=== PATIENT | female | born 1980 | race African-American/Black ===

== ENCOUNTER 2017-06-04 09:07 | Outpatient (RCR) | payer MEDICAID, SELFPAY ==
[2017-06-03 00:41] VITALS: BP 112/71; PULSE 98; RESP 20; TEMP 36.4; BMI 30.5
[2017-06-04 09:54] VITALS: BP 118/72; PULSE 89; RESP 16; TEMP 37.1; BMI 30.5
--- NOTE | 2017-06-04 23:24 | PCM.WC.PN ---
Type of Wound Date of Service: 06/04/17 Chief Complaint: Nonhealing hidradenitis ulcer right inguinal and perineal area. History of Wound: Surgery 03/22/17 - Surgical preparation right inguinal area and perineal area with excision recurrent hidradenitis (100 cm2). Wound care - Silver dressing changes. Operative culture - MRSE, and Anaerobic cocci. She has finished the Levaquin and Flagyl. Prealbumin from 03/23/17 was 22.3. She takes nutritional supplementation with protein to help the healing process. Today she denies fever. Her appetite is good. She has also noted a cystic lesion on the superior aspect right breast. Denies any trauma. Progress of Wound: Healed. - Physical Exam Vital Signs Temp Pulse Resp BP 98.7 F 89 16 118/72 06/04/17 09:54 06/04/17 09:54 06/04/17 09:54 06/04/17 09:54 General: Alert, Oriented x3 HEENT: PERRLA, EOMI Neck: Supple Lungs: Clear to auscultation Cardiovascular: Regular rate, Regular Rhythm Abdomen: Soft, Non-Distended Skin: Ulcer/ Wound - right inguinal and perineal hidradenitis ulcer has healed., - - There is a cystic mass superior aspect right breast. Clinically it is mobile. Doubt it is related to hidradenitis. No evidence of infection. No skin retraction. Cystic mass is nontender. Measures 1 cm. Wound Measurements and Assessment WC - Nurse 1 - General Ulcer Measurement Start: 06/04/17 09:54 Freq: Status: Active Protocol: Activity Type Activity Date Activity User E-Sign Co-Sign Detail Recorded Client Recorded Date Recorded By Document 06/04/17 09:54 [facility] [id number] 06/04/17 10:02 [facility] 06/04/17 09:54 Wound Center Nurse 1 [Ulcer Assessment Protocol: WC.WD.LOC] #2/2 Right Groin -Combined with other wound No -Current Size (cm) - Length 0.1 -Current Size (cm) - Width 0.1 -Current Size (cm) - Depth 0.1 -Total Square Cm 0.01 -Date of Last Picture (Recall this 06/04/17 field) -Photo Taken Yes -Exudate Amt None Present (0 %) -Temperature (Luisa-wound Skin No Abnormality Appearance) (Pt Warm) -Tenderness on Palpation (Luisa-wound Yes Skin Appearance) -Ulcer Cleansing Rinsed/ Irrigated with Saline -Foul Odor after Cleansing No -Anesthetic Used 4% Lidocaine Solution - Nurse 2 - General Ulcer CM Notes Start: 06/04/17 09:54 Freq: Status: Active Protocol: Activity Type Activity Date Activity User E-Sign Co-Sign Detail Recorded Client Recorded Date Recorded By Document 06/04/17 10:55 [id number] 06/04/17 10:57 06/04/17 10:55 Wound Center Nurse 2 [Procedure/Treatment] -Correct Patient No -Correct Side, Site, Position No -Correct Procedure No -Procedure Performed No -Post Debridement Size (cm) - Length 0 -Post Debridement Size (cm) - Width 0 -Post Debridement Size (cm) - Depth 0 -Total Square Cm 0 -Wound/Ulcer Outcome Healed- Epithelialized -Bioengineered Tissue No -Cetacaine Cheney No -Bleeding Controlled with NA [See Physician Procedure note for Specifics] Pain Scale: 0-10 Numeric [Pain] -Is Patient Pain Free? Yes Neurological: Cranial nerves II-XII grossly intact Psych/Mental Status: Normal Affect, Appropriate Debridement Note Post-Debridement Measurements/Treatment - Nurse 2 - General Ulcer CM Notes Start: 06/04/17 09:54 Freq: Status: Active Protocol: Activity Type Activity Date Activity User E-Sign Co-Sign Detail Recorded Client Recorded Date Recorded By Document 06/04/17 10:55 [id number] 06/04/17 10:57 06/04/17 10:55 Wound Center Nurse 2 #2/2 Right Groin -Correct Patient No -Correct Side, Site, Position No -Correct Procedure No -Procedure Performed No -Post Debridement Size (cm) - Length 0 -Post Debridement Size (cm) - Width 0 -Post Debridement Size (cm) - Depth 0 -Total Square Cm 0 -Wound/Ulcer Outcome Healed- Epithelialized -Bioengineered Tissue No -Cetacaine Cheney No -Bleeding Controlled with NA Pain Scale: 0-10 Numeric Is Patient Pain Free? Yes Wound debrided: #2 Right inguinal area extending to perineal area. Laterality: Right Wound Grade/Stage: 2. No debridement was completed today - The ulcer has healed. Assessment/Plan Assessment: 1. Hidradenitis ulcer right inguinal and perineal area, healed. 2. Diabetes mellitus. 3. Smoker. 4. History of MRSE and MRSA. 5. 1 cm cystic lesion superior aspect right breast. Plan: The hidradenitis ulcer has healed. Massage the scar with skin lotion daily to help soften up the scar. She has finished the Levaquin for MRSE and has finished the Flagyl for the anaerobes. Her Prealbumin from 03/23 was 22.3. Continue nutritional supplementation with protein to help the healing process. Reassured the patient that the cystic mass superior aspect right breast was not clinically consistent with hidradenitis. Clinically it appears benign. However it should be followed up just to make sure. She will need a mammogram and ultrasound to her right breast. Her PCP Dr. Bradshaw can set that up. Depending on what is found, a general surgery evaluation may be necessary for biopsy to evaluate for carcinoma. Followup on an as needed basis. Encouraged the patient to stop smoking as it may have deleterious effects on wound healing.
== END 2017-07-01 23:59 ==
LOC: WC 09:07
PROVIDERS: Family Provider Family Medicine; PCP Family Medicine; Visit Provider Surgery
DX: L73.2 Hidradenitis suppurativa (principal); N60.11 Diffuse cystic mastopathy of right breast; E11.9 Type 2 diabetes mellitus without complications; Z86.14 Personal history of Methicillin resistant Staphylococcus aureus infection; F17.200 Nicotine dependence, unspecified, uncomplicated
CPT/HCPCS: 99213; G0463

== ENCOUNTER 2017-12-22 15:25 | Emergency (ER) | payer MEDICAID, SELFPAY ==
[2017-12-22 15:26] VITALS: BP 138/93; PULSE 105; RESP 18; TEMP 36.1; O2SAT 99; BMI 31.1
[2017-12-22] MEDS: Ketorolac 30 MG/ML Syringe IM (15:57)
[2017-12-22] MEDS: Orphenadrine 60 MG/2 ML Ampul IM (15:57)
--- NOTE | 2017-12-22 16:09 | RAD_ITS ---
STUDY: X-RAY - LUMBAR SPINE REASON FOR EXAM: Female, 37 years old. Lower back pain. History of pilonidal cyst with surgical removal. TECHNIQUE: 3 view(s) of the lumbar spine were obtained. COMPARISON: None FINDINGS: Normal lumbar lordosis. There is no substantial scoliosis. There is a normal alignment of the vertebrae. Normal vertebral bodies and endplates. Normal disc space heights. There is no evidence of acute fracture or loss of vertebral axial height. The soft tissue structures are unremarkable. RAD/Lumbar Spine 2 or 3 Views IMPRESSION: Normal x-ray examination of the lumbar spine. Electronically Signed: Trev Quintero DO at 16:44 EDT Tel [phone], Service support ,
--- NOTE | 2017-12-22 17:16 | ED.VISSUMM ---
- ER Visit Summary Date of Service: 12/22/17 Chief Complaint: back pain History of Present Illness: The patient is a 37 F with back pain for about 4 days. The pain starts in her lower back and radiates to her tailbone. She said she never had this before. No injury or inciting event. Worse with movement. Denies any , GI symptoms. Denies any new numbness or weakness. Denies any recent illness. Denies fever. Denies history of back surgery. Denies any history of bone disease. No incontinence. Physical Examination: Vital signs unremarkable. Patient has diffuse lumbosacral tenderness to palpation. Overlying skin is normal. No warmth. No scars. Good range of motion, but she does have pain with movement. Neurovascular intact distally. Test Results: X-rays unremarkable. Emergency Department Course and Treatment: Patient treated with Toradol and Norflex while awaiting x-rays. She still had a great deal of pain but was able to move. Her exam is not consistent with , GI, [employer]GER, vascular, or infectious pathologies. This is likely myofascial pain. Her x-rays are negative. No other red flags. Patient was given an additional subcutaneous dose of morphine here. She will be discharged on anti-inflammatories and Flexeril. Follow-up with primary care. Return for any new or worsening issues. Treatment Plan: As above Disposition: Discharged Impression: 1. Lumbar back pain This note was generated with [employer] dictation software. It may contain incorrect words, spelling, and punctuation that were not noted in review of the chart prior to signing ED Disposition - Plan for ED Patient: Chief Complaint: Back Referrals: Joey Bradshaw MD [Primary Care Provider] -
--- NOTE | 2017-12-22 17:19 | ED.DCSUM_ITS ---
- ER Visit Summary Date of Service: 12/22/17 Chief Complaint: back pain History of Present Illness: The patient is a 37 F with back pain for about 4 days. The pain starts in her lower back and radiates to her tailbone. She said she never had this before. No injury or inciting event. Worse with movement. Denies any , GI symptoms. Denies any new numbness or weakness. Denies any recent illness. Denies fever. Denies history of back surgery. Denies any history of bone disease. No incontinence. Physical Examination: Vital signs unremarkable. Patient has diffuse lumbosacral tenderness to palpation. Overlying skin is normal. No warmth. No scars. Good range of motion, but she does have pain with movement. Neurovascular intact distally. Test Results: X-rays unremarkable. Emergency Department Course and Treatment: Patient treated with Toradol and Norflex while awaiting x-rays. She still had a great deal of pain but was able to move. Her exam is not consistent with , GI, VALANCE CUTTER, vascular, or infectious pathologies. This is likely myofascial pain. Her x-rays are negative. No other red flags. Patient was given an additional subcutaneous dose of morphine here. She will be discharged on anti-inflammatories and Flexeril. Follow-up with primary care. Return for any new or worsening issues. Treatment Plan: As above Disposition: Discharged Impression: 1. Lumbar back pain This note was generated with [employer] dictation software. It may contain incorrect words, spelling, and punctuation that were not noted in review of the chart prior to signing ED Disposition - Plan for ED Patient: Chief Complaint: Back Referrals: Joey Bradshaw MD [Primary Care Provider] -
--- NOTE | 2017-12-22 17:19 | ED.DEP ---
ED Disposition - Plan for ED Patient: Chief Complaint: Back Instructions: ED Spasm Back No Trauma Prescriptions: Cyclobenzaprine [Flexeril] 10 mg PO TID PRN PRN #10 tab PRN Reason: Spasms Naproxen [Naprosyn] 500 mg PO BID PRN PRN #20 tab PRN Reason: Pain Referrals: Joey Bradshaw MD [Primary Care Provider] -
[2017-12-22] MEDS: morphine 10 MG/ML Syringe 4 MG SC (17:30)
[2017-12-22 17:33] VITALS: BP 132/94; PULSE 77; RESP 16; O2SAT 100
== END 2017-12-22 17:35 | disposition home or self-care (01) ==
PROVIDERS: Emergency Provider Emergency Medicine; Family Provider Family Medicine; PCP Family Medicine
DX: M54.5 Low back pain (principal); E11.42 Type 2 diabetes mellitus with diabetic polyneuropathy; Z79.84 Long term (current) use of oral hypoglycemic drugs; Z79.899 Other long term (current) drug therapy; Z72.0 Tobacco use
CPT/HCPCS: 72100; 96372; 99282

== ENCOUNTER 2017-12-31 21:06 | Emergency (ER) | payer MEDICAID, SELFPAY ==
[2017-12-31 21:07] VITALS: BP 145/88; PULSE 111; RESP 16; TEMP 36.4; O2SAT 98; BMI 30.9
--- NOTE | 2017-12-31 21:20 | ED.DCSUM_ITS ---
- ER Visit Summary Date of Service: 12/31/17 Chief Complaint: Back pain History of Present Illness: The patient is a 37 F who continues to have back pain. She was seen here couple weeks ago and had negative x-rays. She was given naproxen and Flexeril. She stopped taking the naproxen at home because it did not work. She continues with pain. She has tried nothing else. She has no symptoms. Physical Examination: Vital signs reviewed. HEENT exam unremarkable. Heart is regular rate and rhythm without murmurs. Lungs are clear to auscultation. Abdomen is soft and nontender. Back is tender in the right lumbar paraspinal area extremities reveal no edema. Skin exam normal. Neurologic exam normal. Test Results: None indicated Emergency Department Course and Treatment: Patient will be treated with Norflex and Toradol here. She will go home with Dolobid. She will ice and do stretching activities will follow up with her PCP Treatment Plan: [] Disposition: Discharge Impression: Lumbar back pain This note was generated with [employer] dictation software. It may contain incorrect words, spelling, and punctuation that were not noted in review of the chart prior to signing ED Disposition - Plan for ED Patient: Chief Complaint: Back Referrals: Joey Bradshaw MD [Primary Care Provider] -
--- NOTE | 2017-12-31 21:20 | ED.DEP ---
ED Disposition - Plan for ED Patient: Disposition: Home or Assisted Living Chief Complaint: Back Instructions: ED Neck Back Pain General Prescriptions: Diflunisal [Dolobid] 500 mg PO TID #20 tab Referrals: Joey Bradshaw MD [Primary Care Provider] -
[2017-12-31] MEDS: Orphenadrine 60 MG/2 ML Ampul IM (21:27)
[2017-12-31] MEDS: Ketorolac 60 MG/2 ML Vial IM (21:27)
== END 2017-12-31 21:48 | disposition home or self-care (01) ==
PROVIDERS: Emergency Provider Emergency Medicine; Family Provider Family Medicine; PCP Family Medicine
DX: M54.5 Low back pain (principal); E11.40 Type 2 diabetes mellitus with diabetic neuropathy, unspecified; Z79.84 Long term (current) use of oral hypoglycemic drugs; Z79.4 Long term (current) use of insulin; Z72.0 Tobacco use
CPT/HCPCS: 96372; 99282

== ENCOUNTER 2018-01-07 03:34 | Emergency (ER) | payer MEDICAID, SELFPAY ==
[2018-01-07 03:35] VITALS: BP 155/97; PULSE 99; RESP 18; TEMP 36.7; O2SAT 100; BMI 30.9
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
--- NOTE | 2018-01-07 04:22 | ED.DCSUM_ITS ---
- ER Visit Summary Date of Service: 01/07/18 Chief Complaint: Back pain History of Present Illness: The patient is a 37 F presenting for back pain. She states this has been ongoing for the past 2 weeks. She denies any known injury. She states she has an appointment with her primary care physician tomorrow. She was previously taking naproxen and she ran out. She was given Flexeril which she states is not helping. She has a history of kidney stones and states this feels somewhat similar. She denies fever. Denies hematuria. Denies bowel or bladder incontinence. Denies other complaints. Physical Examination: Vitals are stable. Patient is afebrile. Alert no acute distress. HEENT exam is unremarkable. Neck is supple. Lungs are clear and equal bilaterally. Heart is regular rate and rhythm. Abdomen is soft nontender nondistended. Back: Right CVA tenderness, right paraspinal muscle tenderness, no midline tenderness Extremities are unremarkable. Skin is warm and dry. No focal neurologic deficit. Remainder of exam is unremarkable. Emergency Department Course and Treatment: Patient is given morphine, Zofran IV. CT abdomen pelvis shows no acute process. Urinalysis shows glucose. BGT was checked and is 263. She states that her blood sugar typically runs high and that is not higher than usual. She is advised to take her morning medications. Advised to follow-up with her primary care physician today. Advised return to ED if worsening complaints. Disposition: Discharge home Impression: Back pain This note was generated with [employer] dictation software. It may contain incorrect words, spelling, and punctuation that were not noted in review of the chart prior to signing ED Disposition - Plan for ED Patient: Chief Complaint: Back Instructions: ED Neck Back Pain General Referrals: Joey Bradshaw MD [Primary Care Provider] -
[2018-01-07] MEDS: Morphine 4 MG/ML Syringe IV (04:42)
[2018-01-07] MEDS: Ondansetron 4 MG/2 ML Vial IV (04:43)
[2018-01-07 05:11] LABS: Bacteria 0 SEEN /hpf (None Seen); Mucous, Urine 0 SEEN /hpf (<or=2+); Red Blood Cells-Urine 0 SEEN /hpf (0-5)
[2018-01-07 05:27] LABS: Color, Urine Yellow (Yellow); Glucose, Dipstick 1000 mg/dl (Normal); Ketone-Dipstick Negative (Negative); Leukocyte Esterase-Dipstick Negative /ul (Negative); Nitrite-Dipstick Negative (Negative); Occult Blood-Urine Negative /ul (Negative); Protein-Dipstick Negative (Negative); Specific Gravity, Urine 1.015 (1.002-1.030); Urine Bilirubin Dipstick Negative (Negative); Urine Clarity Clear (Clear); Urine Urobilinogen Normal (Normal); Urine pH 6.5 (5.0 - 8.0)
[2018-01-07 05:52] LABS: Squamous Epithelial Cells - UA 10-25 SEEN /hpf (5-10); White Blood Cells 0-5 SEEN /hpf (0-5)
[2018-01-07 06:18] VITALS: BP 133/84; PULSE 78; RESP 18; TEMP 36.7; O2SAT 99
--- NOTE | 2018-01-07 07:07 | ED.DEP ---
ED Disposition - Plan for ED Patient: Chief Complaint: Back Instructions: ED Neck Back Pain General Referrals: Joey Bradshaw MD [Primary Care Provider] -
[2018-01-07 07:10] LABS: Bedside Glucose 263 mg/dL (70-110)
[2018-01-07 07:20] VITALS: BP 133/104; PULSE 88; RESP 18
== END 2018-01-07 07:25 | disposition home or self-care (01) ==
LOC: ED 04:23
PROVIDERS: Emergency Provider Emergency Medicine; Family Provider Family Medicine; PCP Family Medicine
DX: M54.9 Dorsalgia, unspecified (principal); E11.9 Type 2 diabetes mellitus without complications; Z79.4 Long term (current) use of insulin; Z79.84 Long term (current) use of oral hypoglycemic drugs; Z87.442 Personal history of urinary calculi; Z72.0 Tobacco use
CPT/HCPCS: 74176; 81001; 82962; 96374; 96375; 99285; J7030; A4216; J2405

== ENCOUNTER 2018-01-10 11:40 | Emergency (ER) | payer MEDICAID, SELFPAY ==
[2018-01-10 11:41] VITALS: BP 125/86; PULSE 93; RESP 16; TEMP 37.1; O2SAT 99; BMI 30.2
--- NOTE | 2018-01-10 12:07 | RAD_ITS ---
STUDY: X-RAY - LUMBAR SPINE REASON FOR EXAM: Female, 37 years old. Low back pain. No known injury. TECHNIQUE: 3 view(s) of the lumbar spine were obtained. COMPARISON: None FINDINGS: There is straightening of the normal lumbar lordosis. There is no substantial scoliosis. There is a normal alignment of the vertebrae. Normal vertebral bodies and endplates. Normal disc space heights. Calcified phleboliths are seen in the pelvis. RAD/Lumbar Spine 2 or 3 Views IMPRESSION: There is straightening of the normal lumbar lordosis. Electronically Signed: Khanh Villar MD at 12:40 EDT Tel [phone], Service support ,
--- NOTE | 2018-01-10 12:07 | ED.VISSUMM ---
- ER Visit Summary Date of Service: 01/10/18 Chief Complaint: Back pain History of Present Illness: The patient is a 37 F presents with 2-3 weeks of back pain. This is nontraumatic. No fever or chills. No urinary symptoms no bowel or bladder incontinence or retention. No radiation to her legs. Physical Examination: Not appear in acute distress. Moist mucous membranes, no obvious facial deformity No C-spine tenderness supple neck. Regular rate and rhythm without any obvious murmurs Clear lungs bilaterally speaking in full sentences without any obvious respiratory distress Abdomen soft and nontender no guarding or rebound Moves all extremities without any difficulty or pain. Skin does not show any obvious rashes or lesions, no trauma. Alert oriented ?3 with no gross focal deficit Emergency Department Course and Treatment: X-ray LS spine is unremarkable. Patient seemed improved. She made an apartment with Dr. Decker while in the emergency department and will follow up with him. At this time she is neurologically intact. Disposition: Discharge stable condition Impression: Lumbar back pain This note was generated with [employer] dictation software. It may contain incorrect words, spelling, and punctuation that were not noted in review of the chart prior to signing ED Disposition - Plan for ED Patient: Disposition: Home or Assisted Living Chief Complaint: Back Instructions: ED Low Back Pain Injury Prescriptions: Oxycodone HCl/Acetaminophen [Percocet 5/325] 1 tab PO Q6H PRN PRN 5 Days #5 tab PRN Reason: Pain Cyclobenzaprine [Flexeril] 10 mg PO TID PRN #20 tab PRN Reason: Muscle Spasm Referrals: Joey Bradshaw MD [Primary Care Provider] - 2 Days
[2018-01-10 12:09] VITALS: PULSE 87; RESP 18; O2SAT 100
[2018-01-10] MEDS: oxyCODONE 5 MG Tablet PO (12:13)
[2018-01-10 13:18] VITALS: BP 111/75; PULSE 89; RESP 16; O2SAT 99
--- NOTE | 2018-01-10 13:19 | ED.RN ---
REVIEWED D/C INSTRUCTIONS, FOLLOW UP CARE, PRESCRIPTIONS, AND S/S THAT WOULD WARRANT A RETURN TO THE ED WITH PT. PT VERBALIZED AN UNDERSTANDING AND DENIES FURTHER QUESTIONS FOR THIS RN. PT SKIN WARM/DRY, RESP EVEN AND UNLABORED, PT A&O X 3, NO DISTRESS NOTED. PT AMBULATED OUT OF ED, GAIT STEADY.
== END 2018-01-10 13:20 | disposition home or self-care (01) ==
LOC: ED 13:15
PROVIDERS: Emergency Provider Emergency Medicine; Family Provider Family Medicine; PCP Family Medicine
DX: M54.5 Low back pain (principal); E11.40 Type 2 diabetes mellitus with diabetic neuropathy, unspecified; Z79.4 Long term (current) use of insulin; Z79.84 Long term (current) use of oral hypoglycemic drugs; Z72.0 Tobacco use
CPT/HCPCS: 72100; 99284

== ENCOUNTER 2018-01-22 18:22 | Emergency (ER) | payer MEDICAID, SELFPAY ==
[2018-01-22 18:23] VITALS: BP 136/76; PULSE 145; RESP 18; TEMP 36.3; O2SAT 99
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
[2018-01-22] MEDS: Ondansetron ODT 4 MG Tablet PO (19:09)
[2018-01-22] MEDS: oxyCODONE 5 MG Tablet 10 MG PO (19:09)
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
[2018-01-22 21:20] VITALS: BP 115/77; PULSE 115; RESP 18; O2SAT 98
--- NOTE | 2018-01-22 21:21 | ED.RN ---
PT GIVEN WRITTEN AND VERBAL DISCHARGE INSTRUCTIONS AND HOME GOING PRESCRIPTIONS. PT VERBALIZES UNDERSTANDING AND DENIES ANY FURTHER QUESTIONS. PT EDUCATED ON IMPORTANCE OF SAFETY. PT REFUSES INFORMATION FOR 180, REPORTS THAT SHE HAS ALREADY ERIC GIVEN INFORMATION ABOUT IT. PT EDUCATED NOT TO DRIVE. FOR 4-6 HOURS. AMBULATES OUT OF DEPT. WITH FRIEND.
== END 2018-01-22 21:24 | disposition home or self-care (01) ==
PROVIDERS: Emergency Provider Emergency Medicine; Family Provider Family Medicine; PCP Family Medicine
DX: R51 Headache (principal); R11.0 Nausea; M54.2 Cervicalgia; Y04.8XXA Assault by other bodily force, initial encounter; Y93.9 Activity, unspecified; Y92.9 Unspecified place or not applicable; M54.9 Dorsalgia, unspecified; G89.29 Other chronic pain; E11.9 Type 2 diabetes mellitus without complications; Z86.79 Personal history of other diseases of the circulatory system; Z79.4 Long term (current) use of insulin; Z79.84 Long term (current) use of oral hypoglycemic drugs; Z72.0 Tobacco use
CPT/HCPCS: 70450; 72125; 74176; 99283

== ENCOUNTER 2018-03-25 16:25 | Emergency (ER) | payer MEDICAID, SELFPAY ==
[2018-03-25] VITALS (7 sets, daily range): BP systolic 112–132; BP diastolic 81–97; PULSE 84–114; RESP 14–20; TEMP 36.8; O2SAT 98–100; BMI 30.1
--- NOTE | 2018-03-25 16:44 | ED.DCSUM_ITS ---
- ER Visit Summary Date of Service: 03/25/18 Chief Complaint: Right groin abscess History of Present Illness: The patient is a 37 F history of insulin-dependent diabetes, lower extremity neuropathies and recurrent abscesses. Patient had surgery done by Dr. Pemberton in the past to both groin region secondary to abscesses. States right proximal thigh and groin area she is for the last 5 days. No drainage. No fever. Also states her blood sugar has been elevated. Physical Examination: Vital signs are stable and afebrile. H EENT exam unremarkable. Patient is in no distress. Moist mucous membranes. Neck nontender. Lungs clear to auscultation bilaterally. Heart regular rhythm no murmur. Abdomen soft nontender. Normal bowel sounds. No peritoneal signs. Moving all 4 extremities. Neurovascularly intact. The patient's proximal right upper thigh medially just lateral to her right groin crease there is a quarter size abscess that is fluctuant. There is no cellulitis. There is no active drainage. Neurologically he is awake alert with no focal motor deficits. Test Results: BGT shows Emergency Department Course and Treatment: Per patient request she will be given a limited amount of propofol for conscious sedation. The abscess of the locally anesthetized with lidocaine. And I will make a 1 inch incision to drain the abscess. Small amount of pus and blood. Broke up loculations and probed. Placed about 3 inches of half-inch gauze. Patient tolerated procedure well. She was consciously sedated with a total of 70 mg of IV propofol. Her vital signs and pulse ox remained stable the entire time. Treatment Plan: Keflex and Bactrim for 10 days. Warm soaks. Tylenol and Motrin for pain. Disposition: Discharge Impression: Acute proximal right thigh abscess Incision and drainage by ER Conscious sedation by ER using propofol for about 10 minutes. History of insulin-dependent diabetes with hyperglycemia This note was generated with [employer] dictation software. It may contain incorrect words, spelling, and punctuation that were not noted in review of the chart prior to signing ED Disposition - Plan for ED Patient: Chief Complaint: Abscess Referrals: Joey Bradshaw MD [Primary Care Provider] -
[2018-03-25 17:00] LABS: Bedside Glucose 346 mg/dL (70-110)
[2018-03-25] MEDS: Propofol 200 MG/20 ML Vial 40 MG IV BOLUS (18:18)
--- NOTE | 2018-03-25 18:21 | ED.DEP ---
ED Disposition - Plan for ED Patient: Disposition: Home or Assisted Living Chief Complaint: Abscess Instructions: ED Abscess IandD Prescriptions: Cephalexin [Keflex] 500 mg PO Q6 #40 cap Smz/Tmp Ds [Bactrim Ds] 1 tab PO BID #20 tab Referrals: Joey Bradshaw MD [Primary Care Provider] - 5-7 Days Additional Instructions: Warm compresses and/or soaks to the area. Tylenol and/or Motrin for pain. Watch her blood sugars closely. Keflex 1 pill 4 times a day till gone. Bactrim 1 pill twice a day till gone. Follow-up your primary care physician to ensure this is improving or return to ER if doing worse.
[2018-03-25] MEDS: oxyCODONE 5 MG Tablet 10 MG PO (18:38)
== END 2018-03-25 18:45 | disposition home or self-care (01) ==
PROVIDERS: Emergency Provider Emergency Medicine; Family Provider Family Medicine; PCP Family Medicine
DX: L02.214 Cutaneous abscess of groin (principal); E11.65 Type 2 diabetes mellitus with hyperglycemia; E11.40 Type 2 diabetes mellitus with diabetic neuropathy, unspecified; Z79.4 Long term (current) use of insulin; Z79.84 Long term (current) use of oral hypoglycemic drugs; Z72.0 Tobacco use
CPT/HCPCS: 10060; 82962; 96374; 99285; J7050; A4216

== ENCOUNTER 2018-06-30 14:28 | Emergency (ER) | payer MEDICAID, SELFPAY ==
[2018-06-30 14:28] VITALS: BP 119/80; PULSE 96; RESP 14; TEMP 36.8; O2SAT 97; BMI 30.1
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
[2018-06-30] MEDS: oxyCODONE 5 MG Tablet PO (16:37)
== END 2018-06-30 16:47 | disposition home or self-care (01) ==
LOC: ED 16:26
PROVIDERS: Emergency Provider Emergency Medicine; Family Provider Family Medicine; PCP Family Medicine
DX: S20.219A Contusion of unspecified front wall of thorax, initial encounter (principal); S39.012A Strain of muscle, fascia and tendon of lower back, initial encounter; M54.2 Cervicalgia; V43.62XA Car passenger injured in collision with other type car in traffic accident, initial encounter; Y93.9 Activity, unspecified; Y92.9 Unspecified place or not applicable; G89.29 Other chronic pain; E11.9 Type 2 diabetes mellitus without complications; Z79.84 Long term (current) use of oral hypoglycemic drugs; Z79.4 Long term (current) use of insulin
CPT/HCPCS: 71046; 72100; 99283

== ENCOUNTER 2018-07-15 13:10 | Emergency (ER) | payer MEDICAID, SELFPAY ==
[2018-07-15 13:11] VITALS: BP 133/96; PULSE 86; RESP 14; TEMP 36.2; O2SAT 99; BMI 28.7
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
[2018-07-15] MEDS: Ibuprofen 600 MG Tablet PO (13:39)
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
[2018-07-15 15:02] VITALS: BP 123/91; PULSE 89; RESP 16; O2SAT 100
== END 2018-07-15 15:02 | disposition home or self-care (01) ==
PROVIDERS: Emergency Provider Emergency Medicine; Family Provider Family Medicine; PCP Family Medicine
DX: M79.602 Pain in left arm (principal); M79.632 Pain in left forearm; M25.552 Pain in left hip; M25.562 Pain in left knee; M25.512 Pain in left shoulder; R07.9 Chest pain, unspecified; R20.0 Anesthesia of skin; V89.2XXA Person injured in unspecified motor-vehicle accident, traffic, initial encounter; Y93.9 Activity, unspecified; Y92.9 Unspecified place or not applicable; E11.40 Type 2 diabetes mellitus with diabetic neuropathy, unspecified; L73.2 Hidradenitis suppurativa; Z87.442 Personal history of urinary calculi; Z79.4 Long term (current) use of insulin; Z79.84 Long term (current) use of oral hypoglycemic drugs; F17.210 Nicotine dependence, cigarettes, uncomplicated
CPT/HCPCS: 73000; 73060; 73090; 99283

== ENCOUNTER → 2018-07-23 14:37 | Outpatient (CLI) | payer MEDICAID, SELFPAY ==
[2018-07-15 13:11] VITALS: BMI 28.7
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
--- OUTSIDE RECORDS SUMMARY | 2018-09-24 20:43 | XMS RPT_ITS ---
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 12/27/2021 HPV EVERY 5 YEARS due on 12/27/2021 Data reviewed [facility] ER report, UA, X-ray lumbar, CT abdomen reviewed. ASSESSMENT/PLAN: 1. Acute right-sided low back pain with bilateral sciatica - ICD9: 724.2, 724.3, ICD10: M54.42, M54.41 Sciatica - Ice for localized tenderness - Medrol dose pack - Muscle relaxant- see orders - PT consult - Follow up in PRN or sooner if symptoms persist or worsen - TIZANIDINE 4 MG TABLET - CONSULT TO PHYSICAL THERAPY - METHYLPREDNISOLONE 4 MG TABLETS IN A DOSE PACK: cautioned on increasing her blood glucose levels. - Advised to limit sitting, standing for prolonged time periods, avoid heavy lifting. Go to PHYSICAL THERAPY, follow up in open access with pcp team to determine effectiveness. Lee Santiago APRN.CNP CNOV Observed: 01/15/2018 Status: COMPLETED Source: [place] 12:20 PM [facility] REPOSITORY Office Visit (FAMPWS) MINDY FAULKNER ([id number]) 1980 F Date Time Provider Department 01/15/18 12:20 PM LEE SANTIAGO (LEONEL) [facility] During your visit today, we recorded the following information about you: Pulse Respiration Blood pressure Weight 88/minute 20/minute 124/86 81.2 kg Lee Santiago APRN.CNP 01/15/2018 12:42 PM Signed Chief Complaint Patient presents with: ER F/U: bilateral leg pain and back denies lifting HPI Mindy Faulkner is a 37 year old female who presents here today for Above Complaints.. Patient presents to the office for ER follow up for multiple visits: HOSPITAL/ER FOLLOW UP: Reason for visit: Back pain Which facility: [facility] ER Date of visit: 12/31, 01/07, 01/10/2018 Diagnosis: Lumbar back pain Testing done: X-ray lumbar (unremarkable), CT abdomen (unremarkable, ruling out renal calculi). Treatment given: Patient was given naproxen, flexeril, and percocet Current symptoms: Patient states that she initially was walking up a hill, felt a sudden cramp in anterior of her abdomen, also lower back. States that she felt like a menstrual cramp. Went to [facility], had a normal evaluation. At this time, laying on the floor improves her pain. Has difficulty with standing up with stiffness. Sitting makes her pain increase. At her last ER visit, she states that she had no radiation of pain to her legs. Now she is stating she is having bilateral leg pain. Complaints of sudden stabbing pain in her lower lumbar, right greater than left. Right buttock pain, left sided pain. No nausea. No abdominal pain. No episodes of groin numbness, loss of function of bowel or bladder control. Gait is stiff. Has not been icing. Has not been to PHYSICAL THERAPY. Requesting MRI. Past medical history, appointments, medications, allergies reviewed. Previous Medical History PAST MEDICAL HISTORY Diagnosis Date - Cellulitis and abscess of upper arm and forearm RIGHT AXILLA - Diabetes mellitus (HCC) Type 2 - Heroin use 2016 admitted for overdose x 2 - Neuropathy (HCC) - Pilonidal abscess Previous Surgical History PAST SURGICAL HISTORY Procedure Laterality Date - DRAINAGE OF PILONIDAL CYST 03/10/10 In ER - FRAGMENTING/KIDNEY STONE Lithotripsy - I AND D ABSCESS, SINGLE 05/13/08 RIGHT AXILLA - PAST SURGICAL HISTORY OF removal boils - PAST SURGICAL HISTORY OF Removed part of inner thigh Family History FAMILY HISTORY Problem Relation Age of Onset - Diabetes Mother - Diabetes Maternal Grandmother - Diabetes Paternal Grandmother Patient Allergies ALLERGIES Allergen Reactions - Dilaudid [Hydromorp* Mental Status Change - Tramadol Other: See Comments Heart racing - Vicodin [Hydrocodon* GI Upset Current Medications Current Outpatient Prescriptions on File Prior to Visit: insulin glargine (LANTUS SOLOSTAR, BASAGLAR) 100 unit/mL (3 mL) inpn Inject 10 Units subcutaneously one time only for 1 dose. Lancets lancets Test blood sugar(s) 4 times daily. Dx: Type 2 DM - Uncontrolled E11.65 Insulin: Yes blood sugar diagnostic (BLOOD GLUCOSE TEST) test strip Test blood sugar(s) 2 times daily. Dx: 250.00 DM2. Insulin: Yes metFORMIN (GLUCOPHAGE) 1,000 mg tablet Take 1 tablet by mouth twice daily with meals. meloxicam (MOBIC) 15 mg tablet Take 1 tablet by mouth once daily. With food. amitriptyline (ELAVIL) 25 mg tablet Take 1 tablet by mouth daily at bedtime. Blood-Glucose Meter (FREESTYLE LITE METER) monitoring kit Freestyle LITE Meter Kit - Dx: Type 2 DM - Controlled E11.9 blood sugar diagnostic (FREESTYLE LITE STRIPS) test strip Test blood sugar(s) 4 times daily. Dx: Type 2 DM - Controlled E11.9 Insulin: Yes lancets (FREESTYLE LANCETS) 28 gauge misc Test blood sugar(s) 4 times daily. Dx: Type 2 DM - Controlled E11.9 Insulin: Yes blood sugar diagnostic (BLOOD GLUCOSE TEST) test strip Test blood sugar(s) 4 times daily. Dx: Type 2 DM - Uncontrolled E11.65 Insulin: Yes No current facility-administered medications on file prior to visit. Social History Social History Marital status: Single Spouse name: Years of education: Number of children: 0 Occupational History Occupation Employer Comment Unemployed Social History Main Topics Smoking status: Current Every Day Smoker Packs/day: 0.25 Years: 5.00 Types: Cigarettes Smokeless tobacco: Never Used Comment: 1-2 cigarettes per day Alcohol use: No Drug use: No Sexual activity: Not Currently REVIEW OF SYSTEMS: as above ? Reviewed relevant PMHx, PSHx, Social Hx, current medications and allergies. EXAM: BP 124/86 Pulse 88 Resp 20 Wt 81.2 kg (179 lb) LMP 12/28/2017 (Exact Date) BMI 30.73 kg/m? General Appearance: Well appearing, alert, well-hydrated, well nourished. Appears uncomfortable. Lungs: Lungs clear to auscultation. No wheezing, rhonchi, rales. Heart: RRR without murmur, gallop, or rubs. No ectopy. Musculoskeletal: Moderate right paraspinal tenderness. No vertebral tenderness. Patient declined further evaluation on exam table due to pain. Neuro: Sensation of the bilateral lower extremities are intact to light touch. Health Maintenance List DTAP,TDAP,TD(1 - Tdap) due on 12/15/2010 DIABETIC FOOT EXAM due on 12/14/2017 ONE PNEUMOVAX PRIOR TO AGE 65 due on 07/02/2043 HBA1C due on 01/24/2018 DIABETES MED ADHERENCE due on 01/30/2018 INFLUENZA(1) due on 03/02/2018 DILATED RETINAL EXAM due on 04/10/2018 URINE ALBUMIN:CREATININE RATIO due on 10/25/2018 LDL CHOLESTEROL due on 10/25/2018 ANNUAL PCP TEAM CHRONIC DISEASE VISIT due on 10/25/2018 PAP EVERY 5 YEARS due on 12/27/2021 HPV EVERY 5 YEARS due on 12/27/2021 Data reviewed [facility] ER report, UA, X-ray lumbar, CT abdomen reviewed. ASSESSMENT/PLAN: 1. Acute right-sided low back pain with bilateral sciatica - ICD9: 724.2, 724.3, ICD10: M54.42, M54.41 Sciatica - Ice for localized tenderness - Medrol dose pack - Muscle relaxant- see orders - PT consult - Follow up in PRN or sooner if symptoms persist or worsen - TIZANIDINE 4 MG TABLET - CONSULT TO PHYSICAL THERAPY - METHYLPREDNISOLONE 4 MG TABLETS IN A DOSE PACK: cautioned on increasing her blood glucose levels. - Advised to limit sitting, standing for prolonged time periods, avoid heavy lifting. Go to PHYSICAL THERAPY, follow up in open access with pcp team to determine effectiveness. ANGIE Anton APRN.CNP 01/15/2018 12:35 PM Signed Please start Prednisone taper as prescribed. Use with food. It will cause your blood glucose to go up. Use Zanaflex as needed, caution with sedation. I would advise use of ice to your lower area. Go to PHYSICAL THERAPY. Follow up with Dr. Bradshaw or Wojciech in open access if not improving. Lee Santiago APRN.CNP Referring Provider: SELF [200] Allergies As of Date: 01/15/2018 Noted Allergy Reaction DILAUDID (HYDROMORPHONE (BULK)) 07/16/2012 1 - Mental Status Change TRAMADOL 07/23/2015 14 - Other: See Comments Comments: Heart racing VICODIN (HYDROCODONE-ACETAMINOPHE*07/16/2012 8 - GI Upset Date Reviewed: 01/15/2018 Reviewed by: Lee (Leonel) Matt - Fully Assessed Reason for Visit: ER F/U [41] Cmt: bilateral leg pain and back denies lifting Primary Visit Diagnosis:Acute right-sided low back pain with bilateral sciatica [M54.42, M54.41] Order(s):tiZANidine (ZANAFLEX) 4 mg tabletTake 1 tablet by mouth every 8 hours as needed (muscle spasms).Disp: 30 tabletRfl: 1 CONSULT TO PHYSICAL THERAPY [9032] Order #: [id number]: 1 methylPREDNISolone (MEDROL, CARMEN,) 4 mg Dose-PackFollow dosing instructions, take with food.Disp: 1 PackageRfl: 0 Prescriptions as of 01/15/2018 Sig: OXYCODONE-ACETAMINOPHEN 5 MG-* Take 1 tablet by mouth every * TIZANIDINE 4 MG TABLET Take 1 tablet by mouth every * METHYLPREDNISOLONE 4 MG TABLE* Follow dosing instructions, t* INSULIN GLARGINE (U-100) 100 * Inject 10 Units subcutaneousl* LANCETS Test blood sugar(s) 4 times d* BLOOD SUGAR DIAGNOSTIC STRIPS Test blood sugar(s) 2 times d* METFORMIN 1,000 MG TABLET Take 1 tablet by mouth twice * MELOXICAM 15 MG TABLET Take 1 tablet by mouth once d* AMITRIPTYLINE 25 MG TABLET Take 1 tablet by mouth daily * BLOOD-GLUCOSE METER KIT Freestyle LITE Meter Kit - Dx* BLOOD SUGAR DIAGNOSTIC STRIPS Test blood sugar(s) 4 times d* LANCETS 28 GAUGE Test blood sugar(s) 4 times d* BLOOD SUGAR DIAGNOSTIC STRIPS Test blood sugar(s) 4 times d* Problem List As Of Date 01/15/2018 Noted Resolved Pilonidal Cyst with Abscess [L05.01] INVALID FOR* NO SHOW [742020] INVALID FOR*07/06/2014 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 Use with food. It will cause your blood glucose to go up. Use Zanaflex as needed, caution with sedation. I would advise use of ice to your lower area. Go to PHYSICAL THERAPY. Follow up with Dr. Bradshaw or Wojciech in open access if not improving. Lee Santiago APRN.CAPACITY ANALYST Prescriptions ordered this encounter Disp Refills Start End TIZANIDINE 4 MG TABLET 30 t* 1 01/15/2018 Route: ORAL Sig: Take 1 tablet by mouth every 8 hours as needed (muscle spasms). METHYLPREDNISOLONE 4 MG TABLETS IN A* 1 Pa* 0 01/15/2018 01/21/2018 Sig: Follow dosing instructions, take with food. Medications Discontinued During This Encounter cyclobenzaprine (FLEXERIL) 10 mg tab* 0 01/10/2018 01/15/2018 Class: Historical Med Route: ORAL Sig: Take 10 mg by mouth three times daily as needed. Disc: Reason for discontinue is not on file. Disposition: Return if symptoms worsen or fail to improve. Follow-up and Disposition History Recorded Encounter Status:Closed by LEE SANTIAGO CNP on 01/15/18 EMERGENCY DEPARTMENT Observed: 01/10/2018 Status: F Source: [place] SUMMARY 4:06 PM [facility] Medical Records Department [address] [place] [address] Emergency Department Summary 01/10/18 1207 MR#: [id number] Acct: [id number] Name: MINDY FAULKNER Rep #: [id number] : 1980 37 From: Garrison Cali MD PCP: Joey Bradshaw MD Status: DEP ER - ER Visit Summary Date of Service: 01/10/18 Chief Complaint: Back pain History of Present Illness: The patient is a 37 F presents with 2-3 weeks of back pain. This is nontraumatic. No fever or chills. No urinary symptoms no bowel or bladder incontinence or retention. No radiation to her legs. Physical Examination: Not appear in acute distress. Moist mucous membranes, no obvious facial deformity No C-spine tenderness supple neck. Regular rate and rhythm without any obvious murmurs Clear lungs bilaterally speaking in full sentences without any obvious respiratory distress Abdomen soft and nontender no guarding or rebound Moves all extremities without any difficulty or pain. Skin does not show any obvious rashes or lesions, no trauma. Alert oriented 3 with no gross focal deficit Emergency Department Course and Treatment: X-ray LS spine is unremarkable. Patient seemed improved. She made an apartment with Dr. Decker while in the emergency department and will follow up with him. At this time she is neurologically intact. Disposition: Discharge stable condition Impression: Lumbar back pain This note was generated with Next 2 Greatness dictation software. It may contain incorrect words, spelling, and punctuation that were not noted in review of the chart prior to signing ED Disposition - Plan for ED Patient: Disposition: Home or Assisted Living Chief Complaint: Back Instructions: ED Low Back Pain Injury Prescriptions: Oxycodone HCl/Acetaminophen [Percocet 5/325] 1 tab PO Q6H PRN PRN 5 Days #5 tab PRN Reason: Pain Cyclobenzaprine [Flexeril] 10 mg PO TID PRN #20 tab PRN Reason: Muscle Spasm Referrals: Joey Bradshaw MD [Primary Care Provider] - 2 Days What to do if you have Problems For any increased pain, shortness of breath, bleeding, nausea or vomiting, chest pain, or any unexpected problems, contact your Primary Care Provider. Call [facility] ([phone]) or report to the closest Emergency Room. Call 911 if necessary. 01/10/18 1606 <Electronically signed by Garrison aCli MD> Date Garrison Cali MD Cosigner Signature (If Indicated): Date CC: Joey Bradshaw MD LUMBAR SPINE 2 OR 3 Observed: 01/10/2018 Status: F Source: [place] VIEWS 12:07 PM [facility] Imaging Services [address] [place] [id number] Lumbar Spine 2 or 3 Views MR#: [id number] Acct: [id number] Name: MINDY FAULKNER Chiquita Rep #: [id number] : 1980 F 37 From: Khanh Villar MD PCP: Joey Bradshaw MD Status: PRE ER Study: Lumbar Spine 2 or 3 Views Date of Exam: 01/10/18 Exam# [id number] Ordering Dr: Garrison Cali MD STUDY: X-RAY - LUMBAR SPINE REASON FOR EXAM: Female, 37 years old. Low back pain. No known injury. TECHNIQUE: 3 view(s) of the lumbar spine were obtained. COMPARISON: None FINDINGS: There is straightening of the normal lumbar lordosis. There is no substantial scoliosis. There is a normal alignment of the vertebrae. Normal vertebral bodies and endplates. Normal disc space heights. Calcified phleboliths are seen in the pelvis. RAD/Lumbar Spine 2 or 3 Views IMPRESSION: There is straightening of the normal lumbar lordosis. Electronically Signed: Khanh Villar MD at 12:40 EDT Tel [phone], Service support , CC: Garrison Cali MD; Joey Bradshaw MD Dowel Sander Operator: Signed Observed: 01/08/2018 Status: F Source: [place] TRICHOMONAS PREP 1:[address] [facility] [place] REPOSITORY Sp. Request/Comment: - Swab Smear Result - Negative for Trichomonas vaginalis antigen This test was developed and its performance characteristics determined by [facility] [place] ([facility]). It has not been cleared or approved by the FDA. [facility] is regulated under CLIA as qualified to perform high-complexity testing. This test is used for clinical purposes. It should not be regarded as investigational or for research. Performed By: #### TRICHO #### [facility] [place] [address] Observed: 01/08/2018 Status: F Source: [place] BACT/CAND VAG GRM ST 1:45 PM [facility] REPOSITORY Sp. Request/Comment: - Swab Smear Result - BACTERIAL VAGINOSIS RESULT: Stain results consistent with normal vaginal thu. No Yeast observed Few Polymorphonuclear leukocytes Performed By: #### BVCNSM #### [facility] [employer] [place] [address] PROGRESS Observed: 01/08/2018 Status: COMPLETED Source: [place] 1:[address] [facility] [place] REPOSITORY HNO ID: [id number] Author: Jeana Chatterjee Service: (none) Author Type: Project Admin Type: Progress Notes Filed: 01/09/2018 9:08 AM Note Text: Paper Feeder offered: Patient declines. Mindy Faulkner is a 37 year old female who presents for problem visit for abdominal pain. HPI: Was seen in [facility] ER x2 for back pain. States she has tailbone pain radiating into her right buttock; but when bends neck forward or goes from sitting to standing position, she feels a cramping and squeezing pain from neck down to buttock. Denies injury. Says ER told her she is having muscle spasms and put her on a muscle relaxer. Patient says med dulled pain but did not alleviate it. Says pain makes her nauseous. Denies arm pain, numbness, tingling, bowel or bladder incontinence. Rates pain at times a 10/10. Today pain has started in pelvic region and patient states, It feels like it is inside, not my muscles. Rating pain 10/10 at this time. Nothing makes it better, movement makes it worse. Has tried Ibuprofen without relief. Denies any complaints with menses, regular, no abnormal bleeding or pain. Current partner x 2 years, no intercourse in last year. PAST MEDICAL HISTORY Diagnosis Date - Cellulitis and abscess of upper arm and forearm RIGHT AXILLA - Diabetes mellitus (HCC) Type 2 - Heroin use 2016 admitted for overdose x 2 - Neuropathy (HCC) - Pilonidal abscess PAST SURGICAL HISTORY Procedure Laterality Date - DRAINAGE OF PILONIDAL CYST 03/10/10 In ER - FRAGMENTING/KIDNEY STONE Lithotripsy - I AND D ABSCESS, SINGLE 05/13/08 RIGHT AXILLA - PAST SURGICAL HISTORY OF removal boils - PAST SURGICAL HISTORY OF Removed part of inner thigh FAMILY HISTORY Problem Relation Age of Onset - Diabetes Mother - Diabetes Maternal Grandmother - Diabetes Paternal Grandmother Social History Marital status: Single Spouse name: Years of education: Number of children: 0 Occupational History Occupation Employer Comment Unemployed Social History Main Topics Smoking status: Current Every Day Smoker Packs/day: 0.25 Years: 5.00 Types: Cigarettes Smokeless tobacco: Never Used Comment: 1-2 cigarettes per day Alcohol use: No Drug use: No Sexual activity: Not Currently Current Outpatient Prescriptions: insulin glargine (LANTUS SOLOSTAR, BASAGLAR) 100 unit/mL (3 mL) inpn Inject 10 Units subcutaneously one time only for 1 dose. Lancets lancets Test blood sugar(s) 4 times daily. Dx: Type 2 DM - Uncontrolled E11.65 Insulin: Yes blood sugar diagnostic (BLOOD GLUCOSE TEST) test strip Test blood sugar(s) 2 times daily. Dx: 250.00 DM2. Insulin: Yes metFORMIN (GLUCOPHAGE) 1,000 mg tablet Take 1 tablet by mouth twice daily with meals. meloxicam (MOBIC) 15 mg tablet Take 1 tablet by mouth once daily. With food. amitriptyline (ELAVIL) 25 mg tablet Take 1 tablet by mouth daily at bedtime. Blood-Glucose Meter (FREESTYLE LITE METER) monitoring kit Freestyle LITE Meter Kit - Dx: Type 2 DM - Controlled E11.9 blood sugar diagnostic (FREESTYLE LITE STRIPS) test strip Test blood sugar(s) 4 times daily. Dx: Type 2 DM - Controlled E11.9 Insulin: Yes lancets (FREESTYLE LANCETS) 28 gauge misc Test blood sugar(s) 4 times daily. Dx: Type 2 DM - Controlled E11.9 Insulin: Yes blood sugar diagnostic (BLOOD GLUCOSE TEST) test strip Test blood sugar(s) 4 times daily. Dx: Type 2 DM - Uncontrolled E11.65 Insulin: Yes No current facility-administered medications for this visit. Allergies As of Date: 01/08/2018 Allergen Noted Reaction DILAUDID [HYDROMORPHONE (BULK)] 07/16/2012 Mental Status Change TRAMADOL 07/23/2015 Other: See Comments VICODIN [HYDROCODONE-ACETAMINOPHE*07/16/2012 GI Upset Fully Assessed 01/08/2018 REVIEW OF SYSTEMS Patient visibly in discomfort when walking and moving positions. Grabs lower back when transitioning from sitting to standing. Abdomen: No bloating, early satiety, indigestion, or increased flatulence. No vomiting, diarrhea, or constipation. Bladder: No dysuria, gross hematuria, urinary frequency, urinary urgency, or incontinence. Breast: No breast lumps, nipple d/c, overlying skin changes, redness or skin retraction. Expanded ROS: N/A Allergies and current medication updated:Yes EXAM: BP 120/84 Wt 176 lb (79.8kg) LMP 12/28/2017 GENERAL: pleasant, female in no apparent distress HEENT: Normocephalic and atraumatic NECK: Supple and full range of motion CHEST: Clear to auscultation Normal inspiratory effort Regular rate and rhythm No murmurs, clicks, rubs or gallops ABDOMEN: soft, non-tender and no masses PELVIC: external genitalia normal, normal Bartholin's glands, urethra, Pax's glands, no vulvar lesions, no cervical lesions, good vaginal support, physiologic discharge present, normal appearing perineal body and perianal region. No CMT, cervix non friable. BIMANUAL: uterus normal size, shape and consistency, no adnexal masses. Generalized pelvic pain with palpation, midline and bilateral adnexa, rates pain 8/10. NEURO: alert and oriented x3,exam grossly non-focal 01/07/18-CT Abdomen normal, UA +glucose, blood glucose 263 ASSESSMENT AND PLAN: 1. Lower abdominal pain - ICD9: 789.09, ICD10: R10.30 (primary diagnosis) - UA DIP B/O 2. Pelvic pain in female - ICD9: 625.9, ICD10: R10.2 - PELVIC US WHI - BACT/LAKESHA VAG GRAM STAIN - TRICHOMONAS PREP - GC/CHLAMYDIA DNA DET - Discussed with patient will discuss follow up after ultrasound findings. If no [facility] concerns to follow up with PCP. Recommend warm compress to lower abdomen for pain and Naproxen. - Recommend to still follow up with PCP for back and leg pain. TIMO HazelOV Observed: 01/08/2018 Status: COMPLETED Source: [place] 1:15 PM [facility] REPOSITORY Office Visit (WOOB) MINDY FAULKNER ([id number]) 1980 F Date Time Provider Department 01/08/18 1:15 PM JEANA CHATTERJEE ([place]) WOOB During your visit today, we recorded the following information about you: Blood pressure Weight Last Period 120/84 79.8 kg 12/28/17 Jeana Chatterjee APRN.CNM 01/09/2018 9:08 AM Signed Paper Feeder offered: Patient declines. Mindy Faulkner is a 37 year old female who presents for problem visit for abdominal pain. HPI: Was seen in [facility] ER x2 for back pain. States she has tailbone pain radiating into her right buttock; but when bends neck forward or goes from sitting to standing position, she feels a cramping and squeezing pain from neck down to buttock. Denies injury. Says ER told her she is having muscle spasms and put her on a muscle relaxer. Patient says med dulled pain but did not alleviate it. Says pain makes her nauseous. Denies arm pain, numbness, tingling, bowel or bladder incontinence. Rates pain at times a 10/10. Today pain has started in pelvic region and patient states, It feels like it is inside, not my muscles. Rating pain 10/10 at this time. Nothing makes it better, movement makes it worse. Has tried Ibuprofen without relief. Denies any complaints with menses, regular, no abnormal bleeding or pain. Current partner x 2 years, no intercourse in last year. PAST MEDICAL HISTORY Diagnosis Date - Cellulitis and abscess of upper arm and forearm RIGHT AXILLA - Diabetes mellitus (HCC) Type 2 - Heroin use 2016 admitted for overdose x 2 - Neuropathy (HCC) - Pilonidal abscess PAST SURGICAL HISTORY Procedure Laterality Date - DRAINAGE OF PILONIDAL CYST 03/10/10 In ER - FRAGMENTING/KIDNEY STONE Lithotripsy - I AND D ABSCESS, SINGLE 05/13/08 RIGHT AXILLA - PAST SURGICAL HISTORY OF removal boils - PAST SURGICAL HISTORY OF Removed part of inner thigh FAMILY HISTORY Problem Relation Age of Onset - Diabetes Mother - Diabetes Maternal Grandmother - Diabetes Paternal Grandmother Social History Marital status: Single Spouse name: Years of education: Number of children: 0 Occupational History Occupation Employer Comment Unemployed Social History Main Topics Smoking status: Current Every Day Smoker Packs/day: 0.25 Years: 5.00 Types: Cigarettes Smokeless tobacco: Never Used Comment: 1-2 cigarettes per day Alcohol use: No Drug use: No Sexual activity: Not Currently Current Outpatient Prescriptions: insulin glargine (LANTUS SOLOSTAR, BASAGLAR) 100 unit/mL (3 mL) inpn Inject 10 Units subcutaneously one time only for 1 dose. Lancets lancets Test blood sugar(s) 4 times daily. Dx: Type 2 DM - Uncontrolled E11.65 Insulin: Yes blood sugar diagnostic (BLOOD GLUCOSE TEST) test strip Test blood sugar(s) 2 times daily. Dx: 250.00 DM2. Insulin: Yes metFORMIN (GLUCOPHAGE) 1,000 mg tablet Take 1 tablet by mouth twice daily with meals. meloxicam (MOBIC) 15 mg tablet Take 1 tablet by mouth once daily. With food. amitriptyline (ELAVIL) 25 mg tablet Take 1 tablet by mouth daily at bedtime. Blood-Glucose Meter (FREESTYLE LITE METER) monitoring kit Freestyle LITE Meter Kit - Dx: Type 2 DM - Controlled E11.9 blood sugar diagnostic (FREESTYLE LITE STRIPS) test strip Test blood sugar(s) 4 times daily. Dx: Type 2 DM - Controlled E11.9 Insulin: Yes lancets (FREESTYLE LANCETS) 28 gauge misc Test blood sugar(s) 4 times daily. Dx: Type 2 DM - Controlled E11.9 Insulin: Yes blood sugar diagnostic (BLOOD GLUCOSE TEST) test strip Test blood sugar(s) 4 times daily. Dx: Type 2 DM - Uncontrolled E11.65 Insulin: Yes No current facility-administered medications for this visit. Allergies As of Date: 01/08/2018 Allergen Noted Reaction DILAUDID [HYDROMORPHONE (BULK)] 07/16/2012 Mental Status Change TRAMADOL 07/23/2015 Other: See Comments VICODIN [HYDROCODONE-ACETAMINOPHE*07/16/2012 GI Upset Fully Assessed 01/08/2018 REVIEW OF SYSTEMS Patient visibly in discomfort when walking and moving positions. Grabs lower back when transitioning from sitting to standing. Abdomen: No bloating, early satiety, indigestion, or increased flatulence. No vomiting, diarrhea, or constipation. Bladder: No dysuria, gross hematuria, urinary frequency, urinary urgency, or incontinence. Breast: No breast lumps, nipple d/c, overlying skin changes, redness or skin retraction. Expanded ROS: N/A Allergies and current medication updated:Yes EXAM: BP 120/84 Wt 176 lb (79.8kg) LMP 12/28/2017 GENERAL: pleasant, female in no apparent distress HEENT: Normocephalic and atraumatic NECK: Supple and full range of motion CHEST: Clear to auscultation Normal inspiratory effort Regular rate and rhythm No murmurs, clicks, rubs or gallops ABDOMEN: soft, non-tender and no masses PELVIC: external genitalia normal, normal Bartholin's glands, urethra, Pax's glands, no vulvar lesions, no cervical lesions, good vaginal support, physiologic discharge present, normal appearing perineal body and perianal region. No CMT, cervix non friable. BIMANUAL: uterus normal size, shape and consistency, no adnexal masses. Generalized pelvic pain with palpation, midline and bilateral adnexa, rates pain /. NEURO: alert and oriented x3,exam grossly non-focal 01/07/18-CT Abdomen normal, UA +glucose, blood glucose 263 ASSESSMENT AND PLAN: 1. Lower abdominal pain - ICD9: 789.09, ICD10: R10.30 (primary diagnosis) - UA DIP B/O 2. Pelvic pain in female - ICD9: 625.9, ICD10: R10.2 - PELVIC US WHI - BACT/LAKESHA VAG GRAM STAIN - TRICHOMONAS PREP - GC/CHLAMYDIA DNA DET - Discussed with patient will discuss follow up after ultrasound findings. If no MERCHANT MILLER concerns to follow up with PCP. Recommend warm compress to lower abdomen for pain and Naproxen. - Recommend to still follow up with PCP for back and leg pain. Jeana Chatterjee APRN.CNM Referring Provider: SELF [200] Allergies As of Date: 01/08/2018 Noted Allergy Reaction DILAUDID (HYDROMORPHONE (BULK)) 07/16/2012 1 - Mental Status Change TRAMADOL 07/23/2015 14 - Other: See Comments Comments: Heart racing VICODIN (HYDROCODONE-ACETAMINOPHE*07/16/2012 8 - GI Upset Date Reviewed: 01/08/2018 Reviewed by: Renuka Weber Ma - Fully Assessed Reason for Visit: Abdominal Pain [1] Cmt: and Lower Back Pain Primary Visit Diagnosis:Lower abdominal pain [R10.30] Other Visit Diagnosis:Pelvic pain in female [R10.2] Order(s):UA DIP B/O [2335517] Order #: [id number] PELVIC US WHI [[id number]] Order #: [id number]: 1 BACT/LAKESHA VAG GRAM STAIN [SQBVCNSM] Order #: [id number] FUTURE TRICHOMONAS PREP [SQTRICHO] Order #: [id number] GC/CHLAMYDIA DNA DET [SQGCCAMP] Order #: [id number] Prescriptions as of 01/08/2018 Sig: INSULIN GLARGINE (U-100) 100 * Inject 10 Units subcutaneousl* LANCETS Test blood sugar(s) 4 times d* BLOOD SUGAR DIAGNOSTIC STRIPS Test blood sugar(s) 2 times d* METFORMIN 1,000 MG TABLET Take 1 tablet by mouth twice * MELOXICAM 15 MG TABLET Take 1 tablet by mouth once d* AMITRIPTYLINE 25 MG TABLET Take 1 tablet by mouth daily * BLOOD-GLUCOSE METER KIT Freestyle LITE Meter Kit - Dx* BLOOD SUGAR DIAGNOSTIC STRIPS Test blood sugar(s) 4 times d* LANCETS 28 GAUGE Test blood sugar(s) 4 times d* BLOOD SUGAR DIAGNOSTIC STRIPS Test blood sugar(s) 4 times d* Problem List As Of Date 01/08/2018 Noted Resolved Pilonidal Cyst with Abscess [L05.01] INVALID FOR* NO SHOW [554928] INVALID FOR*07/06/2014 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 Follow-up and Disposition History Recorded Encounter Status:Closed by JEANA CHATTERJEE on 01/09/18 GC/CHLAMYDIA AMPLIF Collected: 01/08/2018 Status: F Source: [place] 4:41 AM [facility] REPOSITORY TYPE CODE TESTS RESULT OUT OF REFERENCE UNITS RANGE LAB GCCTSR GC/Chlam Amp Cervix Source LAB GCAMPL GC Negative Amplification for Neisseria gonorrhoeae by amplification. LAB CLAMPL Chlamydia Negative Amplif for Chlamydia trachomatis by amplification. Performed By: #### GCCT #### [facility] [address] [place], [place] [address] EMERGENCY DEPARTMENT Observed: 01/07/2018 Status: F Source: [place] SUMMARY 7:19 AM [facility] Medical Records Department [address] [place] [address] Emergency Department Summary 01/07/18 0421 MR#: [id number] Acct: [id number] Name: FAULKNERMINDY Rep #: [id number] : 1980 37 From: Fiona Rudolph MD PCP: Joey Bradshaw MD Status: REG ER - ER Visit Summary Date of Service: 01/07/18 Chief Complaint: Back pain History of Present Illness: The patient is a 37 F presenting for back pain. She states this has been ongoing for the past 2 weeks. She denies any known injury. She states she has an appointment with her primary care physician tomorrow. She was previously taking naproxen and she ran out. She was given Flexeril which she states is not helping. She has a history of kidney stones and states this feels somewhat similar. She denies fever. Denies hematuria. Denies bowel or bladder incontinence. Denies other complaints. Physical Examination: Vitals are stable. Patient is afebrile. Alert no acute distress. HEENT exam is unremarkable. Neck is supple. Lungs are clear and equal bilaterally. Heart is regular rate and rhythm. Abdomen is soft nontender nondistended. Back: Right CVA tenderness, right paraspinal muscle tenderness, no midline tenderness Extremities are unremarkable. Skin is warm and dry. No focal neurologic deficit. Remainder of exam is unremarkable. Emergency Department Course and Treatment: Patient is given morphine, Zofran IV. CT abdomen pelvis shows no acute process. Urinalysis shows glucose. BGT was checked and is 263. She states that her blood sugar typically runs high and that is not higher than usual. She is advised to take her morning medications. Advised to follow- up with her primary care physician today. Advised return to ED if worsening complaints. Disposition: Discharge home Impression: Back pain This note was generated with Next 2 Greatness dictation software. It may contain incorrect words, spelling, and punctuation that were not noted in review of the chart prior to signing ED Disposition - Plan for ED Patient: Chief Complaint: Back Instructions: ED Neck Back Pain General Referrals: Joey Bradshaw MD [Primary Care Provider] - What to do if you have Problems For any increased pain, shortness of breath, bleeding, nausea or vomiting, chest pain, or any unexpected problems, contact your Primary Care Provider. Call [facility] ([phone]) or report to the closest Emergency Room. Call 911 if necessary. 01/07/18 0719 <Electronically signed by Fiona Rudolph MD> Date Fiona Rudolph MD Cosigner Signature (If Indicated): Date CC: Joey Bradshaw MD DISCHARGE INSTRUCTION Observed: 01/07/2018 Status: F Source: [place] 7:08 AM [facility] Medical Records Department [address] [place] [address] Discharge Instruction 01/07/18706 MR#: [id number] Acct: [id number] Name: MINDY FAULKNER Rep #: [id number] : 1980 37 From: Fiona Rudolph MD PCP: Joey Bradshaw MD Status: REG ER ED Disposition - Plan for ED Patient: Chief Complaint: Back Instructions: ED Neck Back Pain General Referrals: Joey Bradshaw MD [Primary Care Provider] - What to do if you have Problems For any increased pain, shortness of breath, bleeding, nausea or vomiting, chest pain, or any unexpected problems, contact your Primary Care Provider. Call [facility] ([phone]) or report to the closest Emergency Room. Call 911 if necessary. 01/07/18707 <Electronically signed by Fiona Rudolph MD> Date Fiona Rudolph MD Coskellyer Signature (If Indicated): Date CC: Joey Bradshaw MD BEDSIDE GLUCOSE Collected: 01/07/2018 Status: F Source: [place] 7:05 AM [facility] REPOSITORY TYPE CODE TESTS RESULT OUT OF REFERENCE UNITS RANGE LAB L501.080 70-110 mg/dL High BEDSIDE GLU 263 Result Comment: MANAGEMENT OF PATIENT CARE PER NURSING PROTOCOL Performed By: #### L501.080 #### [facility] Point of Care [facility] [place] [address] URINALYSIS, COMPLETE Collected: 01/07/2018 Status: F Source: [place] 5:05 AM [facility] REPOSITORY Order Comment: Order Date: 01/07/18 How was Urine Obtained? CLEAN CATCH TYPE CODE TESTS RESULT OUT OF RANGE REFERENCE UNITS LAB L400.3000 Yellow COLOR Normal Yellow LAB L400.3050 Clear Normal CLARITY Clear LAB L400.3200 Normal mg/dl High GLUCOSE, UR 1000 LAB L400.3300 Negative mg/dL Normal BILIRUBIN URINE Negative LAB L400.3400 Negative mg/dl Normal KETONE UR Negative LAB L400.3465 1.002-1.030 Normal SP.GR. DIPSTX 1.015 LAB L400.3550 5.0 - 8.0 pH UR Normal 6.5 LAB L400.3600 Negative mg/dl PROT Normal DIPSTX Negative LAB L400.3700 Normal mg/dl Normal UROBILI Normal LAB L400.3750 Negative Normal NITRITE UR Negative LAB L400.3780 Negative /ul Normal OCCULT BLOOD-UR Negative LAB L400.3800 Negative /ul LEUK Normal ESTERASE Negative LAB L400.4050 0-5 /hpf WBC Normal 0-5 SEEN LAB L400.4100 0-5 /hpf 0 Normal RBC-UA SEEN LAB L400.4150 5-10 /hpf SQUAM Normal EPI 10-25 SEEN LAB L400.4300 None Seen /hpf 0 Normal BACTERIA SEEN LAB L400.4350 <or=2+ /hpf 0 Normal MUCUS, URINE SEEN Performed By: #### L400.0001 #### [facility] [address] [place], [address] ABDOMEN/PELVIS WITHOUT Observed: 01/07/2018 Status: F Source: [place] CONT 4:19 AM [facility] Imaging Services [address] [place] [address] Abdomen/Pelvis without Cont MR#: [id number] Acct: [id number] Name: MINDY FAULKNER Rep #: [id number] : 1980 F 37 From: Kayla Geronimo MD PCP: Joey Bradshaw MD Status: REG ER Study: Abdomen/Pelvis without Cont Date of Exam: 01/07/18 Exam# [id number] Ordering Dr: Fiona Rudolph MD STUDY: CT ABDOMEN AND PELVIS WITHOUT CONTRAST REASON FOR EXAM: Female, 37 years old. mid abd pain, back pain RADIATION DOSAGE (If Supplied By Facility): CTDIvol = ( 9.76 ) mGy, DLP = ( 473.02 ) mGycm TECHNIQUE: Transaxial images were obtained from the dome of the diaphragm to the symphysis pubis without oral contrast, and without intravenous contrast. Sagittal and coronal images were reconstructed. Individualized dose optimization techniques were used for this CT. COMPARISON: None. FINDINGS: The visualized lung bases are unremarkable. The visualized portions of the heart are within normal limits. Normal liver. Normal gallbladder and extrahepatic biliary system. Normal spleen. Normal pancreas. Normal bilateral adrenal glands. Normal right kidney. Normal left kidney. Normal visualized stomach. Normal small intestine. Normal colon. The appendix is visualized and appears normal. Normal abdominal aorta. Normal inferior vena cava. Normal retroperitoneum. Normal urinary bladder. Normal abdominal wall. Normal osseous structures. CT/Abdomen/Pelvis without Cont IMPRESSION: Normal unenhanced CT of the abdomen and pelvis. Electronically Signed: Kayla Geronimo MD at 6:02 EDT Tel , Service support , CC: Fiona Rudolph MD; Joey Bradshaw MD Dowel Sander Operator: Signed DISCHARGE INSTRUCTION Observed: 12/31/2017 Status: F Source: [place] 9:21 PM [facility] Medical Records Department [facility] [place] [address] Discharge Instruction 12/31/172119 MR#: [id number] Acct: [id number] Name: MINDY FAULKNER Rep #: [id number] : 1980 37 From: Hudson Chiu MD PCP: Joey Bradshaw MD Status: REG ER ED Disposition - Plan for ED Patient: Disposition: Home or Assisted Living Chief Complaint: Back Instructions: ED Neck Back Pain General Prescriptions: Diflunisal [Dolobid] 500 mg PO TID #20 tab Referrals: Joey Bradshaw MD [Primary Care Provider] - What to do if you have Problems For any increased pain, shortness of breath, bleeding, nausea or vomiting, chest pain, or any unexpected problems, contact your Primary Care Provider. Call [facility] ([phone]) or report to the closest Emergency Room. Call 911 if necessary. 12/31/172120 <Electronically signed by Hudson Chiu MD> Date Hudson Chiu MD Cosigner Signature (If Indicated): Date CC: Joey Bradshaw MD EMERGENCY DEPARTMENT Observed: 12/31/2017 Status: F Source: [place] SUMMARY 9:20 PM [facility] Medical Records Department [address] [facility] [place] [address] Emergency Department Summary 12/31/172118 MR#: [id number] Acct: [id number] Name: MINDY FAULKNER Rep #: [id number] : 1980 37 From: Hudson Chiu MD PCP: Joey Bradshaw MD Status: REG ER - ER Visit Summary Date of Service: 12/31/17 Chief Complaint: Back pain History of Present Illness: The patient is a 37 F who continues to have back pain. She was seen here couple weeks ago and had negative x-rays. She was given naproxen and Flexeril. She stopped taking the naproxen at home because it did not work. She continues with pain. She has tried nothing else. She has no symptoms. Physical Examination: Vital signs reviewed. HEENT exam unremarkable. Heart is regular rate and rhythm without murmurs. Lungs are clear to auscultation. Abdomen is soft and nontender. Back is tender in the right lumbar paraspinal area extremities reveal no edema. Skin exam normal. Neurologic exam normal. Test Results: None indicated Emergency Department Course and Treatment: Patient will be treated with Norflex and Toradol here. She will go home with Dolobid. She will ice and do stretching activities will follow up with her PCP Treatment Plan: [] Disposition: Discharge Impression: Lumbar back pain This note was generated with Next 2 Greatness dictation software. It may contain incorrect words, spelling, and punctuation that were not noted in review of the chart prior to signing ED Disposition - Plan for ED Patient: Chief Complaint: Back Referrals: Joey Bradshaw MD [Primary Care Provider] - What to do if you have Problems For any increased pain, shortness of breath, bleeding, nausea or vomiting, chest pain, or any unexpected problems, contact your Primary Care Provider. Call [facility] ([phone]) or report to the closest Emergency Room. Call 911 if necessary. 12/31/172119 <Electronically signed by Hudson Chiu MD> Date Hudson Chiu MD Cosigner Signature (If Indicated): Date CC: Joey Bradshaw MD EMERGENCY DEPARTMENT Observed: 12/23/2017 Status: F Source: [place] SUMMARY 12:26 AM [facility] Medical Records Department [address] [place] [address] Emergency Department Summary 12/22/17 1716 MR#: [id number] Acct: [id number] Name: MINDY FAULKNER Rep #: [id number] : 1980 37 From: Erich Steiner MD PCP: Joey Bradshaw MD Status: DEP ER - ER Visit Summary Date of Service: 12/22/17 Chief Complaint: back pain History of Present Illness: The patient is a 37 F with back pain for about 4 days. The pain starts in her lower back and radiates to her tailbone. She said she never had this before. No injury or inciting event. Worse with movement. Denies any , GI symptoms. Denies any new numbness or weakness. Denies any recent illness. Denies fever. Denies history of back surgery. Denies any history of bone disease. No incontinence. Physical Examination: Vital signs unremarkable. Patient has diffuse lumbosacral tenderness to palpation. Overlying skin is normal. No warmth. No scars. Good range of motion, but she does have pain with movement. Neurovascular intact distally. Test Results: X-rays unremarkable. Emergency Department Course and Treatment: Patient treated with Toradol and Norflex while awaiting x-rays. She still had a great deal of pain but was able to move. Her exam is not consistent with , GI, MERCHANT MILLER, vascular, or infectious pathologies. This is likely myofascial pain. Her x-rays are negative. No other red flags. Patient was given an additional subcutaneous dose of morphine here. She will be discharged on anti-inflammatories and Flexeril. Follow-up with primary care. Return for any new or worsening issues. Treatment Plan: As above Disposition: Discharged Impression: 1. Lumbar back pain This note was generated with Next 2 Greatness dictation software. It may contain incorrect words, spelling, and punctuation that were not noted in review of the chart prior to signing ED Disposition - Plan for ED Patient: Chief Complaint: Back Referrals: Joey Bradshaw MD [Primary Care Provider] - What to do if you have Problems For any increased pain, shortness of breath, bleeding, nausea or vomiting, chest pain, or any unexpected problems, contact your Primary Care Provider. Call [employer] [facility] ([phone]) or report to the closest Emergency Room. Call 911 if necessary. 12/23/17 0026 <Electronically signed by Erich Steiner MD> Date Erich Steiner MD Cosigner Signature (If Indicated): Date CC: Joey Bradshaw MD DISCHARGE INSTRUCTION Observed: 12/23/2017 Status: F Source: [place] 12:26 AM [facility] Medical Records Department [address] [place] [address] Discharge Instruction 12/22/17 1719 MR#: [id number] Acct: [id number] Name: MINDY FAULKNER Rep #: [id number] : 1980 37 From: Erich Steiner MD PCP: Joey Bradshaw MD Status: DEP ER ED Disposition - Plan for ED Patient: Chief Complaint: Back Instructions: ED Spasm Back No Trauma Prescriptions: Cyclobenzaprine [Flexeril] 10 mg PO TID PRN PRN #10 tab PRN Reason: Spasms Naproxen [Naprosyn] 500 mg PO BID PRN PRN #20 tab PRN Reason: Pain Referrals: Joey Bradshaw MD [Primary Care Provider] - What to do if you have Problems For any increased pain, shortness of breath, bleeding, nausea or vomiting, chest pain, or any unexpected problems, contact your Primary Care Provider. Call [employer] [facility] ([phone]) or report to the closest Emergency Room. Call 911 if necessary. 12/23/17 0026 <Electronically signed by Erich Steiner MD> Date Erich Steiner MD Cosigner Signature (If Indicated): Date CC: Joey Bradshaw MD LUMBAR SPINE 2 OR 3 Observed: 12/22/2017 Status: F Source: [place] VIEWS 3:51 PM [facility] Imaging Services [address] [place] [address] Lumbar Spine 2 or 3 Views MR#: [id number] Acct: [id number] Name: FAULKNERMINDY Rep #: [id number] : 1980 F 37 From: Trev Quintero DO PCP: Joey Bradshaw MD Status: REG ER Study: Lumbar Spine 2 or 3 Views Date of Exam: 12/22/17 Exam# [id number] Ordering Dr: Erich Steiner MD STUDY: X-RAY - LUMBAR SPINE REASON FOR EXAM: Female, 37 years old. Lower back pain. History of pilonidal cyst with surgical removal. TECHNIQUE: 3 view(s) of the lumbar spine were obtained. COMPARISON: None FINDINGS: Normal lumbar lordosis. There is no substantial scoliosis. There is a normal alignment of the vertebrae. Normal vertebral bodies and endplates. Normal disc space heights. There is no evidence of acute fracture or loss of vertebral axial height. The soft tissue structures are unremarkable. RAD/Lumbar Spine 2 or 3 Views IMPRESSION: Normal x-ray examination of the lumbar spine. Electronically Signed: Trev Quintero DO at 16:44 EDT Tel [phone], Service support , CC: Erich Steiner MD; Joey Bradshaw MD Dowel Sander Operator: Signed ALBUMIN/CREAT RATIO Collected: 10/25/2017 Status: F Source: [place] 5:[address] [facility] [place] REPOSITORY TYPE CODE TESTS RESULT OUT OF REFERENCE UNITS RANGE LAB UCRR 20-300 mg/dL 42.6 Creatinine,Ur ine,Ran LAB UALBR 0.0-23.0 mg/L <12.0 Albumin Urine Random LAB UALBCR 0-30 mg/g Not Albumin/Creat calculated Ratio Performed By: #### UACR #### [facility] [address] [place], [place] [address] XR CERVICAL 4V Observed: 10/25/2017 Status: F Source: [place] AP/LAT/FLX/EXT 10:[address] [facility] [place] REPOSITORY * * *Final Report* * * DATE OF EXAM: Oct 25 2017 10:57AM WOX 5310 - XR CERVICAL 4V AP/LAT/FLX/EXT / PROCEDURE REASON: Radiculopathy, cervical region * * * * Physician Interpretation * * * * HISTORY: 37-year-old woman with cervical radiculopathy Comparison-07/23/2015 RESULT: 5 views of the cervical spine were obtained, including flexion/extension views. There is no evidence of acute displaced fracture or dislocation. The vertebral body heights and interspace levels are well maintained. No instability is seen with motion. There is no prevertebral soft tissue swelling. IMPRESSION: No significant bony abnormality is seen. Consider oblique images for further evaluation of radiculopathy. Dowel Sander Operator: PSCB Transcribe Date/Time: Oct 25 2017 11:26A Dictated by : OLIVIER ARREDONDO MD This examination was interpreted and the report reviewed and electronically signed by: OLIVIER ARREDONDO MD on Oct 25 2017 11:27AM EST [id number] Observed: 10/25/2017 Status: COMPLETED Source: [place] 10:47 AM [facility] REPOSITORY HNO ID: [id number] Author: Evette Moore (Rt) Zee Moss Service: (none) Author Type: Syrup Maker Type: Progress Notes Filed: 10/25/2017 10:57 AM Note Text: Radiology Service Progress Note PATIENT NAME: Mindy Faulkner DATE OF SERVICE: October 25, 2017 TIME: 10:47 AM PATIENT IDENTITY VERIFICATION COMPLETED USING TWO (2) METHODS: Patient confirmed name verbally and Date of . PATIENT GENDER DATA: Female. status: : No status: NO. PATIENT RELEVANT IMPLANT DATA REVIEWED: Not Applicable RADIOLOGY DEPARTMENT: General X-ray: Exam(s) Completed: Spine X-Ray(s): Cervical AP / LAT / FLEX-EXT PERIPHERAL IV DATA: Not applicable SIGNED BY: RT Mikel October 25, 2017 10:47 AM CBC AND DIFFERENTIAL Collected: 10/25/2017 Status: F Source: [place] 10:41 AM [facility] REPOSITORY TYPE CODE TESTS RESULT OUT OF REFERENCE UNITS RANGE LAB WBC 3.70-11.00 k/uL WBC 7.29 LAB RBC 3.90-5.20 m/uL RBC 4.94 LAB HGB 11.5-15.5 g/dL Hemoglobin 15.1 LAB HCT 36.0-46.0 % Hematocrit 44.2 LAB MCV 80.0-100.0 fL MCV 89.5 LAB MCH 26.0-34.0 pG MCH 30.6 LAB MCHC 30.5-36.0 g/dL MCHC 34.2 LAB RDWCV 11.5-15.0 % RDW-CV 12.2 LAB PLTCT 150-400 k/uL Platelet Count 233 LAB MPV 9.0-12.7 fL MPV 11.2 LAB ANEUT % Neut% 58.4 LAB AANEUT 1.45-7.50 k/uL Abs Neut 4.24 LAB ALYMP % Lymph% 33.7 LAB AALYMP 1.00-4.00 k/uL Abs Lymph 2.46 LAB AMONO % Jones% 6.2 LAB AAMONO <0.87 k/uL Abs Jones 0.45 LAB AEOS % Eosin% 1.0 LAB AAEOS <0.46 k/uL Abs Eosin 0.07 LAB ABASO % Baso% 0.7 LAB AABASO <0.11 k/uL Abs Baso 0.05 LAB AUNRBC 0 /100 WBC NRBCs 0.0 LAB ABNRBC <0.01 k/uL Absolute nRBC <0.01 LAB DTYP DTYPE Auto Diff Performed By: #### CBCDIF, WSR, CMP, CRP, LIPNF, HBA1C, ANAIFS #### [facility] [employer] [address] [id number] SED RATE WESTERGREN Collected: 10/25/2017 Status: F Source: [place] 10:41 [facility] REPOSITORY TYPE CODE TESTS RESULT OUT OF REFERENCE UNITS RANGE LAB WSR 0-20 mm/hr Sed Rate High Westergren 25 Performed By: #### CBCDIF, WSR, CMP, CRP, LIPNF, HBA1C, ANAIFS #### [facility] [employer] [address] [place], [place] [address] COMP METABOLIC PANEL Collected: 10/25/2017 Status: F Source: [place] 10:41 [facility] REPOSITORY TYPE CODE TESTS RESULT OUT OF REFERENCE UNITS RANGE LAB TP 6.3-8.0 g/dL Protein, Total 7.6 LAB ALB 3.9-4.9 g/dL Albumin 3.9 LAB CA 8.5-10.2 mg/dL Calcium, Total 9.3 LAB TBIL 0.2-1.3 mg/dL Bilirubin, Total 0.4 LAB ALKP 32-117 U/L Alkaline Phosphatase 71 LAB AST 13-35 U/L AST 15 LAB GLU 74-99 mg/dL Glucose High 391 Result Comment: The [place] [employer] (ADA) provides guidance for cutoff values for fasting glucose and random glucose. The ADA defines fasting as no caloric intake for at least 8 hours. Fas ting plasma glucose results between 100 to 125 mg/dL indicate increased risk for diabetes (prediabetes). Fasting plasma glucose results greater than or equal to 126 mg/dL meet the criteria for diagnosis of diabetes. In the absence of unequivocal hyperglycemia, results should be confirmed by repeat testing. In a patient with classic symptoms of hyperglycemia or hyperglycemic crisis, random plasma glucose results greater than or equal to 200 mg/dL meet the criteria for diagnosis of diabetes. Reference: Standards of Medical Care in Diabetes 2016, [place] [employer]. Diabetes Care. 2016.39(Suppl 1). LAB BUN 7-21 mg/dL BUN 14 LAB CRET 0.58-0.96 mg/dL Creatinine 0.76 LAB NA 136-144 mmol/L Sodium Low 130 LAB K 3.7-5.1 mmol/L Potassium 4.5 LAB CL 97-105 mmol/L Chloride Low 94 LAB CO2 22-30 mmol/L CO2 Low 19 LAB AGAP 9-18 mmol/L Anion Gap 17 LAB ALT 7-38 U/L ALT 15 LAB GFRAA eGFR- Amer. >60 LAB GFRNAA . eGFR-All Other Races >60 Result Comment: eGFR (Estimated GFR) Units of measure: mL/min/1.73 meters squared eGFR is derived from the reexpressed MDRD Study equation using the following parameters: serum creatinine, age, gender and race. The creatinine assay has been calibrated to be traceable to IDMS. An eGFR <60 mL/min/1.73m2 for >3 months is consistent with chronic kidney disease. Refer to KDOQI guidelines for clinical interpretation. In patients with unstable renal function, e.g. those with acute kidney injury, the eGFR may not accurately reflect actual GFR. Performed By: #### CBCDIF, WSR, CMP, CRP, LIPNF, HBA1C, ANAIFS #### [facility] [employer] [address] [place], [place] [address] C-REACTIVE PROTEIN Collected: 10/25/2017 Status: F Source: [place] 10:41 AM [facility] REPOSITORY TYPE CODE TESTS RESULT OUT OF REFERENCE UNITS RANGE LAB CRP <0.9 mg/dL C-Reactive 0.5 Protein Performed By: #### CBCDIF, WSR, CMP, CRP, LIPNF, HBA1C, ANAIFS #### [facility] [employer] [address] [place], [place] [address] LIPID PANEL, NONFAST Collected: 10/25/2017 Status: F Source: [place] 10:41 AM [facility] REPOSITORY TYPE CODE TESTS RESULT OUT OF REFERENCE UNITS RANGE LAB CHOLNF <200 mg/dL Total Cholesterol NF 151 Result Comment: <200 mg/dL, Desirable 200-239 mg/dL, Borderline high >239 mg/dL, High LAB TRIGNF <150 mg/dL Triglycerides, NF 131 Result Comment: <150 mg/dL, Normal 150-199 mg/dL, Borderline high 200-499 mg/dL, High >499 mg/dL, Very high LAB HDLNF >39 mg/dL HDL Cholesterol, NF Low 36 Result Comment: 40-59 mg/dL, Acceptable >59 mg/dL, High: Negative risk factor for coronary heart disease <40 mg/dL, Low: Positive risk factor for coronary heart disease LAB LDLNF <100 mg/dL LDL Cholesterol, NF 89 Result Comment: <100 mg/dL, Optimal 100-129 mg/dL, Near optimal/above optimal 130-159 mg/dL, Borderline high 160-189 mg/dL, High >189 mg/dL, Very high Secondary prevention optimal LDL Cholesterol levels are recommended to be < 70 mg/dL LAB NOHDLN <130 mg/dL Non HDL Chol, 115 NF Result Comment: <130 mg/dL, Optimal 130-159 mg/dL, Near optimal/above optimal 160-189 mg/dL, Borderline high 190-219 mg/dL, High >219 mg/dL, Very high Secondary prevention optimal non HDL Cholesterol levels are recommended to be < 100 mg/dL LAB VLDLNF <30 mg/dL VLDL Cholesterol, NF 26 LAB TCHDLN <5.10 mg/dL T Chol/HDL Ratio NF 4.19 LAB LDLHDN <2.54 mg/dL LDL/HDL Ratio, NF 2.47 Result Comment: Reference: 1. National Cholesterol Education Program ATP III Guideline At-A-Glance Quick Desk Reference: National Heart, Lung, and Blood [place]. National Institutes of Health. 2001: NIH Publication No. 01-3305. 2. An International Atherosclerosis Society position paper: global recommendations for the management of dyslipidemia: executive summary, Atherosclerosis. 2014: 232(2):410-413. Performed By: #### CBCDIF, WSR, CMP, CRP, LIPNF, HBA1C, ANAIFS #### [facility] [employer] [address] [place], [place] [address] HEMOGLOBIN A1C Collected: 10/25/2017 Status: F Source: [place] 10:41 AM [facility] REPOSITORY TYPE CODE TESTS RESULT OUT OF REFERENCE UNITS RANGE LAB HGBA1C 4.3-5.6 % High Hemoglobin A1c 10.9 LAB HBA0 mg/dL Est. Average Glucose 266 Result Comment: eAG: (Estimated average glucose) is a calculated value from HgbA1c and is software support representative of the average blood glucose level in the last 2-3 month period. Performed By: #### CBCDIF, WSR, CMP, CRP, LIPNF, HBA1C, ANAIFS #### [facility] [employer] [address] [address] MARIANO BY IFA Collected: 10/25/2017 Status: F Source: [place] 10:41 AM [facility] REPOSITORY TYPE CODE TESTS RESULT OUT OF REFERENCE UNITS RANGE LAB ANASC Negative MARIANO Negative Result Comment: Normal range : negative at <1:80 serum dilution. Approximately 6% of patients with connective tissue diseases with low positive EIA values are negative by IFA. Recommend follow-up with specific antinuclear antibodies if clinically indicated. LAB HUNTER Negative Negative MARIANO Titer Result Comment: Normal range : negative at <1:80 serum dilution. LAB ANAP MARIANO Not applicable Pattern for negative result. Performed By: #### CBCDIF, WSR, CMP, CRP, LIPNF, HBA1C, ANAIFS #### [facility] [employer] [address], [place] [address] PROGRESS Observed: 10/25/2017 Status: COMPLETED Source: [place] 9:56 AM [facility] REPOSITORY HNO ID: [id number] Author: Joey Bradshaw Service: (none) Author Type: Physician Type: Progress Notes Filed: 10/25/2017 11:37 AM Note Text: Patient presents with: Diabetes: not taking any medications out of refills-off medicaitons for about 6 months Cough HPI: Patient presents today for office visit for follow up. DM: Reports overall feeling well. Home sugar checks: not checking Unexpected weight loss: No. Polyuria, polydipsia: No. Not taking meds. Had earline discussion about risks of untreated diabetes, including . Neuropathy:does not feel meds helped. Has a chronic cough. No gerd. Does smoke periodically. Wonders if it is mental. Psych:was feeling depressed.her Cousin . Not suicidal. Feeling better. Not taking any meds. Concerned about pain in her right arm. Has pain in her upper arm. Is swollen over her trap area. Gets numbness going down the ulnar side of her hand. Pain has been going on for months. Has pain in her neck. No trauma. No recent drug use other than marijuana. Cousin with lupus. Wants tested. Has widespread myalgias. No rashes etc. MEDICATIONS: Current Outpatient Prescriptions: Blood-Glucose Meter (FREESTYLE LITE METER) monitoring kit Freestyle LITE Meter Kit - Dx: Type 2 DM - Controlled E11.9 blood sugar diagnostic (FREESTYLE LITE STRIPS) test strip Test blood sugar(s) 4 times daily. Dx: Type 2 DM - Controlled E11.9 Insulin: Yes lancets (FREESTYLE LANCETS) 28 gauge misc Test blood sugar(s) 4 times daily. Dx: Type 2 DM - Controlled E11.9 Insulin: Yes gabapentin (NEURONTIN) 600 mg tablet Take 1 tablet by mouth three times daily. (Patient not taking: Reported on 10/25/2017 ) metFORMIN (GLUCOPHAGE) 1,000 mg tablet Take 1 tablet by mouth twice daily with meals. (Patient not taking: Reported on 10/25/2017 ) DULoxetine (CYMBALTA) 30 mg capsule Take 1 capsule by mouth once daily. insulin glargine (LANTUS SOLOSTAR) 100 unit/mL (3 mL) inpn Inject 10 Units subcutaneously daily at bedtime. With needles please. (Patient not taking: Reported on 10/25/2017 ) insulin glargine (BASAGLAR KWIKPEN) 100 unit/mL (3 mL) inpn Inject 10 Units subcutaneously daily at bedtime. Indications: DIABETES MELLITUS (Patient not taking: Reported on 10/25/2017 ) blood sugar diagnostic (BLOOD GLUCOSE TEST) test strip Test blood sugar(s) 4 times daily. Dx: Type 2 DM - Uncontrolled E11.65 Insulin: Yes Lancets lancets Test blood sugar(s) 4 times daily. Dx: Type 2 DM - Uncontrolled E11.65 Insulin: Yes blood sugar diagnostic (BLOOD GLUCOSE TEST) test strip Test blood sugar(s) 2 times daily. Dx: 250.00 DM2. Insulin: Yes No current facility-administered medications for this visit. ALLERGIES: ALLERGIES Allergen Reactions - Dilaudid [Hydromorp* Mental Status Change - Tramadol Other: See Comments Heart racing - Vicodin [Hydrocodon* GI Upset PAST MEDICAL HISTORY Diagnosis Date - Cellulitis and abscess of upper arm and forearm RIGHT AXILLA - Diabetes mellitus (HCC) Type 2 - Heroin use 2016 admitted for overdose x 2 - Neuropathy (HCC) - Pilonidal abscess PAST SURGICAL HISTORY Procedure Laterality Date - DRAINAGE OF PILONIDAL CYST 03/10/10 In ER - FRAGMENTING/KIDNEY STONE Lithotripsy - I AND D ABSCESS, SINGLE 05/13/08 RIGHT AXILLA - PAST SURGICAL HISTORY OF removal boils - PAST SURGICAL HISTORY OF Removed part of inner thigh FAMILY HISTORY Problem Relation Age of Onset - Diabetes Mother - Diabetes Maternal Grandmother - Diabetes Paternal Grandmother Social History Marital status: Single Spouse name: Years of education: Number of children: 0 Occupational History Occupation Employer Comment Unemployed Social History Main Topics Smoking status: Current Every Day Smoker Packs/day: 0.25 Years: 5.00 Types: Cigarettes Smokeless status: Never Used Comment: 1-2 cigarettes per day Alcohol use: No Drug use: No Sexual activity: Not Currently Discussed tobacco cessation, including risks of continued use. Offered assistance to help quit if patient desires. Reviewed current medications, allergies, past medical history, surgical history, family history and social history today. REVIEW OF SYSTEMS All other reviewed and negative other than HPI. HEALTH MAINTENANCE: Reviewed health maintenance issues today and recommended the following in detail. URINE ALBUMIN CREATININE RATIO due on 07/23/2016 LDL due on 07/23/2016 HBA1C due on 09/20/2017 VITALS: BP 104/62 Pulse 80 Resp 14 Wt 82.1 kg (181 lb) LMP 09/26/2017 (Approximate) BMI 31.07 kg/m2 Last 4 Encounter Wt Readings: Date: Wt: 10/25/2017 82.1 kg (181 lb) 12/27/2016 80.7 kg (178 lb) 12/14/2016 81.6 kg (180 lb) 07/23/2015 72.6 kg (160 lb) PHYSICAL EXAMINATION: General appearance: Well appearing, alert, in no acute distress, well-hydrated, well nourished. Skin: Skin color, texture, turgor normal, no suspicious rashes or lesions Head: Normocephalic, no masses, lesions, tenderness or abnormalities Neck: Supple, no adenopathy; thyroid symmetric, normal size, no bruits, tender over right trap Lungs: Lungs clear to auscultation. No wheezing, rhonchi, rales Heart: RRR without murmur, gallop, or rubs. No ectopy Abdomen: Normal abdominal exam, Abdomen soft, non-tender. Bowel sounds normal. No masses, organomegaly Extremities: No deformities, edema, skin discoloration, clubbing or cyanosis. Good capillary refill. Neuro: Gait normal. Reflexes normal and symmetric. Sensation grossly intact.positive tinel's over the ulnar groove. ASSESSMENT/PLAN: 1. Neuropathic pain - ICD9: 729.2, ICD10: M79.2 (primary diagnosis) - Discussed risks and benefits of new medication with the patient. Advised them to call if any side effects or questions. - consider pain management. - CBC + DIFF - AMITRIPTYLINE 25 MG TABLET 2. Tobacco use disorder - ICD9: 305.1, ICD10: F17.200 - Cessation encouraged. - Physiologic and physical aspects of tobacco addiction as well as strategies for quitting were discussed. - Counseling was given focusing on the harmful effects of this addiction especially given the patient's medical condition(s) which will be worsened because of the chemicals in tobacco. 3. Noncompliance - ICD9: V15.81, ICD10: Z91.19 - encouraged compliance and explained huge risks of not treating her issues. 4. Uncontrolled type 2 diabetes mellitus with diabetic neuropathy, with long-term current use of insulin (HCC) - ICD9: 250.62, 357.2, V58.67, ICD10: E11.40, Z79.4, E11.65 poorly controlled Poor adherence to plan of care. - Resume meds. - INSULIN GLARGINE (U-100) 100 UNIT/ML (3 ML) SUBCUTANEOUS PEN - LANCETS - BLOOD SUGAR DIAGNOSTIC STRIPS - METFORMIN 1,000 MG TABLET - CONSULT TO PHARMACY 5. Cervical radiculopathy - ICD9: 723.4, ICD10: M54.12 - ice and rest. Consider physical therapy. - XR CERV OTHER 4V AP/LAT/FLX/EXT - MELOXICAM 15 MG TABLET 6. Arthralgia, unspecified joint - ICD9: 719.40, ICD10: M25.50 - SED RATE WESTERGREN - C-REACTIVE PROTEIN (CRP) - MARIANO BY IFA SCREEN Joey Bradshaw MD RTO in one month and prn. CNOV Observed: 10/25/2017 Status: COMPLETED Source: [place] 9:40 AM [facility] REPOSITORY Office Visit ([facility]) MINDY FAULKNER ([id number]) 1980 F Date Time Provider Department 10/25/17 9:40 AM [facility] During your visit today, we recorded the following information about you: Pulse Respiration Blood pressure Weight 80/minute 14/minute 104/62 82.1 kg Last Period 09/26/17 Janice Trammell LPN 10/25/2017 9:41 AM Addendum Still seeing Dr Pemberton for abscesses in groin area. Reports that out of her medications and has been off for about 6 months. Cough for about 2 months. Productive. Has decreased her smoking to about 1-2 cigarettes per day. Sometimes is short of breath. Lower abd pain bilaterally. Asking for being checked for lupus. Has a strong family history. Joey Bradshaw MD 10/25/2017 11:37 AM Signed Patient presents with: Diabetes: not taking any medications out of refills-off medicaitons for about 6 months Cough HPI: Patient presents today for office visit for follow up. DM: Reports overall feeling well. Home sugar checks: not checking Unexpected weight loss: No. Polyuria, polydipsia: No. Not taking meds. Had earline discussion about risks of untreated diabetes, including . Neuropathy:does not feel meds helped. Has a chronic cough. No gerd. Does smoke periodically. Wonders if it is ANDquot;mental.ANDquot; Psych:was feeling depressed.her Cousin . Not suicidal. Feeling better. Not taking any meds. Concerned about pain in her right arm. Has pain in her upper arm. Is swollen over her trap area. Gets numbness going down the ulnar side of her hand. Pain has been going on for months. Has pain in her neck. No trauma. No recent drug use other than marijuana. Cousin with lupus. Wants tested. Has widespread myalgias. No rashes etc. MEDICATIONS: Current Outpatient Prescriptions: Blood-Glucose Meter (FREESTYLE LITE METER) monitoring kit Freestyle LITE Meter Kit - Dx: Type 2 DM - Controlled E11.9 blood sugar diagnostic (FREESTYLE LITE STRIPS) test strip Test blood sugar(s) 4 times daily. Dx: Type 2 DM - Controlled E11.9 Insulin: Yes lancets (FREESTYLE LANCETS) 28 gauge misc Test blood sugar(s) 4 times daily. Dx: Type 2 DM - Controlled E11.9 Insulin: Yes gabapentin (NEURONTIN) 600 mg tablet Take 1 tablet by mouth three times daily. (Patient not taking: Reported on 10/25/2017 ) metFORMIN (GLUCOPHAGE) 1,000 mg tablet Take 1 tablet by mouth twice daily with meals. (Patient not taking: Reported on 10/25/2017 ) DULoxetine (CYMBALTA) 30 mg capsule Take 1 capsule by mouth once daily. insulin glargine (LANTUS SOLOSTAR) 100 unit/mL (3 mL) inpn Inject 10 Units subcutaneously daily at bedtime. With needles please. (Patient not taking: Reported on 10/25/2017 ) insulin glargine (BASAGLAR KWIKPEN) 100 unit/mL (3 mL) inpn Inject 10 Units subcutaneously daily at bedtime. Indications: DIABETES MELLITUS (Patient not taking: Reported on 10/25/2017 ) blood sugar diagnostic (BLOOD GLUCOSE TEST) test strip Test blood sugar(s) 4 times daily. Dx: Type 2 DM - Uncontrolled E11.65 Insulin: Yes Lancets lancets Test blood sugar(s) 4 times daily. Dx: Type 2 DM - Uncontrolled E11.65 Insulin: Yes blood sugar diagnostic (BLOOD GLUCOSE TEST) test strip Test blood sugar(s) 2 times daily. Dx: 250.00 DM2. Insulin: Yes No current facility-administered medications for this visit. ALLERGIES: ALLERGIES Allergen Reactions - Dilaudid [Hydromorp* Mental Status Change - Tramadol Other: See Comments Heart racing - Vicodin [Hydrocodon* GI Upset PAST MEDICAL HISTORY Diagnosis Date - Cellulitis and abscess of upper arm and forearm RIGHT AXILLA - Diabetes mellitus (HCC) Type 2 - Heroin use 2016 admitted for overdose x 2 - Neuropathy (HCC) - Pilonidal abscess PAST SURGICAL HISTORY Procedure Laterality Date - DRAINAGE OF PILONIDAL CYST 03/10/10 In ER - FRAGMENTING/KIDNEY STONE Lithotripsy - I ANDamp; D ABSCESS, SINGLE 05/13/08 RIGHT AXILLA - PAST SURGICAL HISTORY OF removal boils - PAST SURGICAL HISTORY OF Removed part of inner thigh FAMILY HISTORY Problem Relation Age of Onset - Diabetes Mother - Diabetes Maternal Grandmother - Diabetes Paternal Grandmother Social History Marital status: Single Spouse name: Years of education: Number of children: 0 Occupational History Occupation Employer Comment Unemployed Social History Main Topics Smoking status: Current Every Day Smoker Packs/day: 0.25 Years: 5.00 Types: Cigarettes Smokeless status: Never Used Comment: 1-2 cigarettes per day Alcohol use: No Drug use: No Sexual activity: Not Currently Discussed tobacco cessation, including risks of continued use. Offered assistance to help quit if patient desires. Reviewed current medications, allergies, past medical history, surgical history, family history and social history today. REVIEW OF SYSTEMS All other reviewed and negative other than HPI. HEALTH MAINTENANCE: Reviewed health maintenance issues today and recommended the following in detail. URINE ALBUMIN CREATININE RATIO due on 07/23/2016 LDL due on 07/23/2016 HBA1C due on 09/20/2017 VITALS: BP 104/62 Pulse 80 Resp 14 Wt 82.1 kg (181 lb) LMP 09/26/2017 (Approximate) BMI 31.07 kg/m2 Last 4 Encounter Wt Readings: Date: Wt: 10/25/2017 82.1 kg (181 lb) 12/27/2016 80.7 kg (178 lb) 12/14/2016 81.6 kg (180 lb) 07/23/2015 72.6 kg (160 lb) PHYSICAL EXAMINATION: General appearance: Well appearing, alert, in no acute distress, well-hydrated, well nourished. Skin: Skin color, texture, turgor normal, no suspicious rashes or lesions Head: Normocephalic, no masses, lesions, tenderness or abnormalities Neck: Supple, no adenopathy; thyroid symmetric, normal size, no bruits, tender over right trap Lungs: Lungs clear to auscultation. No wheezing, rhonchi, rales Heart: RRR without murmur, gallop, or rubs. No ectopy Abdomen: Normal abdominal exam, Abdomen soft, non-tender. Bowel sounds normal. No masses, organomegaly Extremities: No deformities, edema, skin discoloration, clubbing or cyanosis. Good capillary refill. Neuro: Gait normal. Reflexes normal and symmetric. Sensation grossly intact.positive tinel's over the ulnar groove. ASSESSMENT/PLAN: 1. Neuropathic pain - ICD9: 729.2, ICD10: M79.2 (primary diagnosis) - Discussed risks and benefits of new medication with the patient. Advised them to call if any side effects or questions. - consider pain management. - CBC + DIFF - AMITRIPTYLINE 25 MG TABLET 2. Tobacco use disorder - ICD9: 305.1, ICD10: F17.200 - Cessation encouraged. - Physiologic and physical aspects of tobacco addiction as well as strategies for quitting were discussed. - Counseling was given focusing on the harmful effects of this addiction especially given the patient's medical condition(s) which will be worsened because of the chemicals in tobacco. 3. Noncompliance - ICD9: V15.81, ICD10: Z91.19 - encouraged compliance and explained huge risks of not treating her issues. 4. Uncontrolled type 2 diabetes mellitus with diabetic neuropathy, with long-term current use of insulin (HCC) - ICD9: 250.62, 357.2, V58.67, ICD10: E11.40, Z79.4, E11.65 poorly controlled Poor adherence to plan of care. - Resume meds. - INSULIN GLARGINE (U-100) 100 UNIT/ML (3 ML) SUBCUTANEOUS PEN - LANCETS - BLOOD SUGAR DIAGNOSTIC STRIPS - METFORMIN 1,000 MG TABLET - CONSULT TO PHARMACY 5. Cervical radiculopathy - ICD9: 723.4, ICD10: M54.12 - ice and rest. Consider physical therapy. - XR CERV OTHER 4V AP/LAT/FLX/EXT - MELOXICAM 15 MG TABLET 6. Arthralgia, unspecified joint - ICD9: 719.40, ICD10: M25.50 - SED RATE WESTERGREN - C-REACTIVE PROTEIN (CRP) - MARIANO BY IFA SCREEN Joey Bradshaw MD RTO in one month and prn. Joey Bradshaw MD 10/25/2017 10:00 AM Signed Get labs today Referring Provider: SELF [200] Allergies As of Date: 10/25/2017 Noted Allergy Reaction DILAUDID (HYDROMORPHONE (BULK)) 07/16/2012 1 - Mental Status Change TRAMADOL 07/23/2015 14 - Other: See Comments Comments: Heart racing VICODIN (HYDROCODONE-ACETAMINOPHE*07/16/2012 8 - GI Upset Date Reviewed: 10/25/2017 Reviewed by: Janice Trammell LPN - Fully Assessed Reason for Visit: Diabetes [34] Cmt: not taking any medications out of refills- off medicaitons for about 6 months Cough [28] Reason For Visit History Recorded Primary Visit Diagnosis:Neuropathic pain [M79.2] Other Visit Diagnoses:Tobacco use disorder [F17.200] Noncompliance [Z91.19] Uncontrolled type 2 diabetes mellitus with diabetic neuropathy, with long-term current use of insulin (HCC) [E11.40, Z79.4, E11.65] Cervical radiculopathy [M54.12] Arthralgia, unspecified joint [M25.50] Order(s):COMP METABOLIC PANEL [SQCMP] Order #: [id number] FUTURE HGB A1C [SAHXU1N] Order #: [id number] FUTURE ALBUMIN/CREAT RATIO RND UR [SQUACR] Order #: [id number] FUTURE LIPID PANEL, NONFASTING [SQLIPNF] Order #: [id number] FUTURE CBC + DIFF [SQCBCDIF] Order #: [id number] FUTURE insulin glargine (LANTUS SOLOSTAR U-100 INSULIN) 100 unit/mL (3 mL) inpnInject 10 Units subcutaneously daily at bedtime. With needles please.Disp: 5 PenRfl: 2 Lancets lancetsTest blood sugar(s) 4 times daily. Dx: Type 2 DM - Uncontrolled E11.65 Insulin: YesDisp: 100 EachRfl: 11 blood sugar diagnostic (BLOOD GLUCOSE TEST) test stripTest blood sugar(s) 2 times daily. Dx: 250.00 DM2. Insulin: YesDisp: 50 StripRfl: 11 metFORMIN (GLUCOPHAGE) 1,000 mg tabletTake 1 tablet by mouth twice daily with meals.Disp: 180 tabletRfl: 0 XR CERV OTHER 4V AP/LAT/FLX/EXT [[id number]] Order #: [id number] FUTURE meloxicam (MOBIC) 15 mg tabletTake 1 tablet by mouth once daily. With food.Disp: 10 tabletRfl: 0 amitriptyline (ELAVIL) 25 mg tabletTake 1 tablet by mouth daily at bedtime.Disp: 30 tabletRfl: 3 CONSULT TO PHARMACY [[id number]] Order #: [id number]: 1 SED RATE WESTERGREN [SQWSR] Order #: [id number] FUTURE C-REACTIVE PROTEIN (CRP) [SQCRP] Order #: [id number] FUTURE MARIANO BY IFA SCREEN [SQANAIFS] Order #: [id number] FUTURE Prescriptions as of 10/25/2017 Sig: INSULIN GLARGINE (U-100) 100 * Inject 10 Units subcutaneousl* LANCETS Test blood sugar(s) 4 times d* BLOOD SUGAR DIAGNOSTIC STRIPS Test blood sugar(s) 2 times d* METFORMIN 1,000 MG TABLET Take 1 tablet by mouth twice * MELOXICAM 15 MG TABLET Take 1 tablet by mouth once d* AMITRIPTYLINE 25 MG TABLET Take 1 tablet by mouth daily * BLOOD-GLUCOSE METER KIT Freestyle LITE Meter Kit - Dx* BLOOD SUGAR DIAGNOSTIC STRIPS Test blood sugar(s) 4 times d* LANCETS 28 GAUGE Test blood sugar(s) 4 times d* BLOOD SUGAR DIAGNOSTIC STRIPS Test blood sugar(s) 4 times d* Problem List As Of Date 10/25/2017 Noted Resolved Pilonidal Cyst with Abscess [L05.01] INVALID FOR* NO SHOW [] INVALID FOR*07/06/2014 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 Reports that out of her medications and has been off for about 6 months. Cough for about 2 months. Productive. Has decreased her smoking to about 1-2 cigarettes per day. Sometimes is short of breath. Lower abd pain bilaterally. Asking for being checked for lupus. Has a strong family history. Prescriptions ordered this encounter Disp Refills Start End INSULIN GLARGINE (U-100) 100 UNIT/ML* 5 Pen 2 10/25/2017 Route: SUBCUTANEOUS Sig: Inject 10 Units subcutaneously daily at bedtime. With needles please. LANCETS 100 * 11 10/25/2017 Sig: Test blood sugar(s) 4 times daily. Dx: Type 2 DM - Uncontrolled E11.65 Insulin: Yes BLOOD SUGAR DIAGNOSTIC STRIPS 50 S* 11 10/25/2017 Sig: Test blood sugar(s) 2 times daily. Dx: 250.00 DM2. Insulin: Yes METFORMIN 1,000 MG TABLET 180 * 0 10/25/2017 Route: ORAL Sig: Take 1 tablet by mouth twice daily with meals. MELOXICAM 15 MG TABLET 10 t* 0 10/25/2017 Route: ORAL Sig: Take 1 tablet by mouth once daily. With food. AMITRIPTYLINE 25 MG TABLET 30 t* 3 10/25/2017 Route: ORAL Sig: Take 1 tablet by mouth daily at bedtime. Medications Discontinued During This Encounter cephALEXin (KEFLEX) 500 mg capsule 28 c* 0 12/27/2016 10/25/2017 Route: ORAL Sig: Take 1 capsule by mouth four times daily. Disc: Course of therapy completed insulin glargine (BASAGLAR KWIKPEN) * 5 Pen 2 12/14/2016 10/25/2017 Route: SUBCUTANEOUS Sig: Inject 10 Units subcutaneously daily at bedtime. Indications: DIABETES MELLITUS Patient not taking: Reported on 10/25/2017 Disc: Reason for discontinue is not on file. gabapentin (NEURONTIN) 600 mg tablet 270 * 0 03/19/2017 10/25/2017 Route: ORAL Sig: Take 1 tablet by mouth three times daily. Patient not taking: Reported on 10/25/2017 Disc: Reason for discontinue is not on file. metFORMIN (GLUCOPHAGE) 1,000 mg tabl* 180 * 0 03/19/2017 10/25/2017 Route: ORAL Sig: Take 1 tablet by mouth twice daily with meals. Patient not taking: Reported on 10/25/2017 Disc: Reason for discontinue is not on file. DULoxetine (CYMBALTA) 30 mg capsule 30 c* 2 12/14/2016 10/25/2017 Route: ORAL Sig: Take 1 capsule by mouth once daily. Disc: Reason for discontinue is not on file. insulin glargine (LANTUS SOLOSTAR) 1* 5 Pen 2 12/14/2016 10/25/2017 Route: SUBCUTANEOUS Sig: Inject 10 Units subcutaneously daily at bedtime. With needles please. Patient not taking: Reported on 10/25/2017 Disc: Reason for discontinue is not on file. Lancets lancets 100 * 11 07/23/2015 10/25/2017 Sig: Test blood sugar(s) 4 times daily. Dx: Type 2 DM - Uncontrolled E11.65 Insulin: Yes Disc: Reason for discontinue is not on file. blood sugar diagnostic (BLOOD GLUCOS* 50 S* 11 06/12/2014 10/25/2017 Sig: Test blood sugar(s) 2 times daily. Dx: 250.00 DM2. Insulin: Yes Disc: Reason for discontinue is not on file. Disposition: Return in about 4 weeks (around 11/22/2017). LOS history recorded Follow-up and Disposition History Recorded Encounter Status:Closed by JOEY BRADSHAW MD on 10/25/17 CNPTOUTREANABILA Observed: 10/09/2017 Status: COMPLETED Source: [place] 12:00 AM [facility] REPOSITORY Patient Outreach (INTMWH) MINDY FAULKNER ([id number]) 1980 F Date Time Provider Department 10/09/17 JOEY BRADSHAW [facility] During your visit today, we recorded the following information about you: Allergies As of Date: 10/09/2017 Noted Allergy Reaction DILAUDID (HYDROMORPHONE (BULK)) 07/16/2012 1 - Mental Status Change TRAMADOL 07/23/2015 14 - Other: See Comments Comments: Heart racing VICODIN (HYDROCODONE-ACETAMINOPHE*07/16/2012 8 - GI Upset Date Reviewed: 12/27/2016 Reviewed by: Lacy Muhammad LPN - Fully Assessed Visit Diagnosis:Medication management [Z79.899] Prescriptions as of 10/09/2017 Sig: BLOOD-GLUCOSE METER KIT Freestyle LITE Meter Kit - Dx* BLOOD SUGAR DIAGNOSTIC STRIPS Test blood sugar(s) 4 times d* LANCETS 28 GAUGE Test blood sugar(s) 4 times d* X GABAPENTIN 600 MG TABLET Take 1 tablet by mouth three * Patient not taking: Reported on 10/25/2017 X METFORMIN 1,000 MG TABLET Take 1 tablet by mouth twice * Patient not taking: Reported on 10/25/2017 X CEPHALEXIN 500 MG CAPSULE Take 1 capsule by mouth four * X DULOXETINE 30 MG CAPSULE,NETTA* Take 1 capsule by mouth once * X INSULIN GLARGINE (U-100) 100 * Inject 10 Units subcutaneousl* Patient not taking: Reported on 10/25/2017 X INSULIN GLARGINE (U-100) 100 * Inject 10 Units subcutaneousl* Patient not taking: Reported on 10/25/2017 BLOOD SUGAR DIAGNOSTIC STRIPS Test blood sugar(s) 4 times d* X LANCETS Test blood sugar(s) 4 times d* X BLOOD SUGAR DIAGNOSTIC STRIPS Test blood sugar(s) 2 times d* Problem List As Of Date 10/09/2017 Noted Resolved Pilonidal Cyst with Abscess [L05.01] INVALID FOR* NO SHOW [[id number]] INVALID FOR*07/06/2014 Brachial plexus neuropathy [G54.0] INVALID FOR* Neuropathic pain [M79.2] INVALID FOR* Diabetes mellitus out of control (HCC) [E11.65] INVALID FOR* Hidradenitis suppurativa [L73.2] INVALID FOR* HPV test positive [[id number]] INVALID FOR* Tobacco use disorder [F17.200] INVALID FOR* Encounter Status:Closed by DEMOND ASCENCIO on 04/12/18 PROGRESS Observed: 10/05/2017 Status: COMPLETED Source: [place] 12:44 PM [facility] REPOSITORY HNO ID: [id number] Author: Magy Gerry [facility] Service: (none) Author Type: (none) Type: Progress Notes Filed: 10/05/2017 12:45 PM Note Text: FYI - no action needed spoke with Mindy and she agreed to schedule an appointment for 10/25/17. I offered an open access appointment, but she wanted something scheduled. She will get lab work done prior to appointment. The patient has been identified by name and date of : YES I have scheduled the patient for an appointment on 10/25/2017. The patient will report to the lab prior to the visit. PHMA Documentation 10/05/2017 Opts out of [facility] No Appointments Scheduled Scheduled PCP Appt DM2 with No Urine Alb Lab Ordered A1C > 8.9 Lab Ordered Magy Gerry [facility] PROGRESS Observed: 10/05/2017 Status: COMPLETED Source: [place] 12:29 PM [facility] REPOSITORY HNO ID: [id number] Author: Magy Gerry [facility] Service: (none) Author Type: (none) Type: Progress Notes Filed: 10/05/2017 12:45 PM Note Text: [facility] GAP REGISTRY DOCUMENTATION (OUTSIDE TEAMLET) Provider Action/FYI: PSR Action/FYI: Patient identified by name and date of . Last BP/Labs: Blood Pressure: Last 3 Encounter BP Readings: Date: BP: 12/27/2016 106/68 12/14/2016 100/72 07/23/2015 126/80 Lipids: Cholesterol, Total (mg/dL) Date Value 07/23/2015 126 HDL Cholesterol (mg/dL) Date Value 07/23/2015 35 LDL Cholesterol (mg/dL) Date Value 07/23/2015 74 Triglyceride (mg/dL) Date Value 07/23/2015 85 HGB A1C: Lab Results Component Value Date HBA1C 11.1 03/23/2017 HBA1C 10.9 07/23/2015 TSH: No results found for: TSH) ? Patient has the following care gap registry disease diagnosis:DM ? Patient has the following open care gaps:DM - Need Urine Albumin / NOT checked in last 12 months ? Last HGBA1C is NOT under 9% ? LDL ? Last office visit: 12/14/2016 ? Future office visit:Follow-up DM in next available with Provider PCP ? Consult to Pharm. (no showed last appointment) Health Maintenance Due: URINE ALBUMIN CREATININE RATIO due on 07/23/2016 - ordered LDL due on 07/23/2016 - ordered HBA1C due on 09/20/2017 - ordered (labs will ) Magy Garrett [facility] CNPTOUTREACH Observed: 10/05/2017 Status: COMPLETED Source: [place] 12:00 AM [facility] REPOSITORY Patient Outreach (FAMPWS) MINDY FAULKNER ([id number]) 1980 F Date Time Provider Department 10/05/17 MAGY GARRETT ([facility]) FAMPWS During your visit today, we recorded the following information about you: Magy Garrett [employer] 10/05/2017 12:45 PM Signed [facility] GAP REGISTRY DOCUMENTATION (OUTSIDE TEAMLET) Provider Action/FYI: PSR Action/FYI: Patient identified by name and date of . Last BP/Labs: Blood Pressure: Last 3 Encounter BP Readings: Date: BP: 12/27/2016 106/68 12/14/2016 100/72 07/23/2015 126/80 Lipids: Cholesterol, Total (mg/dL) Date Value 07/23/2015 126 HDL Cholesterol (mg/dL) Date Value 07/23/2015 35 LDL Cholesterol (mg/dL) Date Value 07/23/2015 74 Triglyceride (mg/dL) Date Value 07/23/2015 85 HGB A1C: Lab Results Component Value Date HBA1C 11.1 03/23/2017 HBA1C 10.9 07/23/2015 TSH: No results found for: TSH) ? Patient has the following care gap registry disease diagnosis:DM ? Patient has the following open care gaps:DM - Need Urine Albumin / NOT checked in last 12 months ? Last HGBA1C is NOT under 9% ? LDL ? Last office visit: 12/14/2016 ? Future office visit:Follow-up DM in next available with Provider PCP ? Consult to Pharm. (no showed last appointment) Health Maintenance Due: URINE ALBUMIN CREATININE RATIO due on 07/23/2016 - ordered LDL due on 07/23/2016 - ordered HBA1C due on 09/20/2017 - ordered (labs will ) Magy Garrett Cma Magy Garrett Cma 10/05/2017 12:45 PM Signed FYI - no action needed spoke with Mindy and she agreed to schedule an appointment for 10/25/17. I offered an open access appointment, but she wanted something scheduled. She will get lab work done prior to appointment. The patient has been identified by name and date of : YES I have scheduled the patient for an appointment on 10/25/2017. The patient will report to the lab prior to the visit. PHMA Documentation 10/05/2017 Opts out of [facility] No Appointments Scheduled Scheduled PCP Appt DM2 with No Urine Alb Lab Ordered A1C ANDgt; 8.9 Lab Ordered Magy Garrett Cma Allergies As of Date: 10/05/2017 Noted Allergy Reaction DILAUDID (HYDROMORPHONE (BULK)) 07/16/2012 1 - Mental Status Change TRAMADOL 07/23/2015 14 - Other: See Comments Comments: Heart racing VICODIN (HYDROCODONE-ACETAMINOPHE*07/16/2012 8 - GI Upset Date Reviewed: 12/27/2016 Reviewed by: Lacy Muhammad LPN - Fully Assessed Reason for Visit: PHMA/Care Gap Outreach [[id number]] Prescriptions as of 10/05/2017 Sig: BLOOD-GLUCOSE METER KIT Freestyle LITE Meter Kit - Dx* BLOOD SUGAR DIAGNOSTIC STRIPS Test blood sugar(s) 4 times d* LANCETS 28 GAUGE Test blood sugar(s) 4 times d* GABAPENTIN 600 MG TABLET Take 1 tablet by mouth three * METFORMIN 1,000 MG TABLET Take 1 tablet by mouth twice * CEPHALEXIN 500 MG CAPSULE Take 1 capsule by mouth four * DULOXETINE 30 MG CAPSULE,NETTA* Take 1 capsule by mouth once * INSULIN GLARGINE (U-100) 100 * Inject 10 Units subcutaneousl* INSULIN GLARGINE (U-100) 100 * Inject 10 Units subcutaneousl* BLOOD SUGAR DIAGNOSTIC STRIPS Test blood sugar(s) 4 times d* LANCETS Test blood sugar(s) 4 times d* BLOOD SUGAR DIAGNOSTIC STRIPS Test blood sugar(s) 2 times d* Problem List As Of Date 10/05/2017 Noted Resolved Pilonidal Cyst with Abscess [L05.01] INVALID FOR* NO SHOW [[id number]] INVALID FOR*07/06/2014 Brachial plexus neuropathy [G54.0] INVALID FOR* Neuropathic pain [M79.2] INVALID FOR* Diabetes mellitus out of control (HCC) [E11.65] INVALID FOR* Hidradenitis suppurativa [L73.2] INVALID FOR* HPV test positive [HVQ1439] INVALID FOR* Tobacco use disorder [F17.200] INVALID FOR* Encounter Status:Closed by MAGY GARRETT CMA on 10/05/17 ALLERGIES ALLERGIES DATE TYPE / CODE NAME / CODE REACTION SEVERITY SOURCE 07/15/2018 Drug hydromorphone Other Unknown [place] Allergy/416 HCl/[id number](RXNO Formerly [facility] 113050([facility] ED CT) Repository 07/15/2018 Drug hydrocodone Vomiting Unknown [place] Allergy/416 bitartrate/[id number] Formerly [facility] 083544([place] [address] 07/15/2018 Drug tramadol/[id number] Other Unknown [place] Allergy/416 (RXNORM) Formerly [facility] 823173([facility] ED CT) Repository 07/23/2015 DRUG TRAMADOL OTHER: SEE C [facility] INGREDI/[address] [place] 615538(SNOM Repository ED CT) 07/16/2012 DRUG/471147 HYDROMORPHONE Mental Chg [facility] 003(SNOMED (BULK) [facility] CT) Repository 07/16/2012 DRUG/912995 HYDROCODONE-ACETAMI GI UPSET [facility] 003(SNOMED NOPHEN [address] [place] CT) Repository ENCOUNTERS ENCOUNTERS ADMIT/DISCHARGE ACCOUNT ADMITTING ENCOUNTER LOCATION SOURCE NUMBER CLASS 07/23/2018 [id number] Ambulatory [facility] ing:CT Repository 07/23/2018/07/24/19 [id number] Ambulatory [place] [facility] [address] [place] Repository 07/15/2018/07/15/19 [id number] Emergency [facility] 19 [facility] ing:ED Repository 06/30/2018/06/30/20 [id number] Emergency [address] ing:ED Repository 03/25/2018/03/25/20 [id number] Emergency [place] ing:ED Repository 01/25/2018/01/29/20 [id number] Ambulatory [address] Repository 01/22/2018/01/23/20 [id number] Emergency [address] ing:ED Repository 01/15/2018/01/17/20 [id number] Ambulatory [address] Repository 01/10/2018/01/11/20 [id number] Emergency [address] ing:ED Repository 01/09/2018/01/15/20 [id number] Ambulatory [address] Repository 01/08/2018/01/12/20 [id number] Ambulatory [address] Repository 01/07/2018/01/08/20 [id number] Emergency [address] ing:ED Repository 12/31/2017/01/01/20 [id number] Emergency [address] ing:ED Repository 12/22/2017/12/23/19 [id number] Emergency [place] ing:ED Repository 10/25/2017/10/26/19 [id number] Ambulatory [address] [place] Repository 10/25/2017/10/26/19 [id number] Ambulatory [address] Repository 10/25/2017/10/27/19 [id number] Ambulatory [address] Repository PAYERS PAYERS ENCOUNTER GUARANTOR PAYER SUBSCRIBER SOURCE 07/23/2018 MINDY [id number] 1/2 E [facility] Community nancy SALAMANCA Number: [id number] [facility] [address]Zql: [id number] Repository Date:2018-07-23P O () [address]ATTN: [place] [address]QE: 07/23/2018 Secondary NOT GIVENUNK [place] Insurance:SELF PAY [facility] Number: Effective Repository Date:2018-07-23 07/15/2018 MINDY Porras Primary MINDY Hutchison [id number] 12 [address] Insurance:CARESOURCEP WIGGELISABETHDOB: Formerly [facility] shekhar SALAMANCAayaz Number: [id number] Regional Medical Center [address]Mzx: [id number] Repository Date:2018-07-15P O () [address]ATTN: [place] [address]JX: 07/15/2018 Secondary NOT GIVENUNK [place] Insurance:SELF PAY [facility] Number: Effective Repository Date:2018-07-15 06/30/2018 MINDY Porras Primary MINDY Hutchison [id number] 12 [address] Insurance:CARESOURCEP WIGGELISABETHDOB: Formerly [facility] nancy Salamanca Number: [id number] Regional Medical Center [address]Lfw: [id number] Repository Date:2018-06-30P O () [address]ATTN: [place] [address]OO: 06/30/2018 Secondary NOT GIVENUNK [place] Insurance:SELF PAY [facility] Number: Effective Repository Date:2018-06-30 03/25/2018 MINDY Porras Primary MINDY Hutchison [id number] 1/2 E Insurance:CARESOURCEP WIALIEDOB: Formerly [facility] nancy [place]amanca Number: [id number] Regional Medical Center [address]Rro: [id number] Repository Date:2018-03-25P O (HP) [address]ATTN: [place] [address]LK: 03/25/2018 Secondary NOT GIVENUNK [place] Insurance:SELF PAY [facility] Number: Effective Repository Date:2018-03-25 01/22/2018 MINDY Porras Primary MINDY Hutchison [id number] 1/2 E Insurance:CARESOURCEP WIGGINSDOB: Formerly [facility] nancy Salamanca Number: [id number] Regional Medical Center [address]Zis: [id number] Repository Date:2018-01-22P O (HP) [address]ATTN: [place] [address]XO: 01/22/2018 Secondary NOT GIVENUNK [place] Insurance:SELF PAY [facility] Number: Effective Repository Date:2018-01-22 01/10/2018 MINDY Porras Primary MINDY Hutchison [id number] 12 [address] Insurance:CARESOURCEP WIALIEDOB: Formerly [facility] nancy Salamanca Number: [id number] Regional Medical Center [address]Zqz: [id number] Repository Date:2018-01-10 O (HP) [address]ATTN: [place] [address]CM: 01/10/2018 Secondary NOT GIVENUNK [place] Insurance:SELF PAY [facility] Number: Effective Repository Date:2018-01-10 01/07/2018 MINDY Porras Primary MINDY Hutchison [id number] 1/2 E Insurance:CARESOURCEP WIALIEDOB: Formerly [facility] nancy [place]am[place] Number: [id number] Regional Medical Center [address]Wco: [id number] Repository Date:2018-01-07P O (HP) [address]ATTN: [place] [address]GZ: 01/07/2018 Secondary NOT GIVENUNK [place] Insurance:SELF PAY [facility] Number: Effective Repository Date:2018-01-07 12/31/2017 MINDY Porras Primary MINDY Hutchison [id number] 1/2 E Insurance:CARESOURCEP TALATDOB: Formerly [facility] nancy Salamanca Number: [id number] Regional Medical Center [address]Eui: [id number] Repository Date:2017-12-31P O (HP) [address]ATTN: [place] [address]LF: 12/31/2017 Secondary NOT GIVENUNK [place] Insurance:SELF PAY [facility] Number: Effective Repository Date:2017-12-31 12/22/2017 MINDY Porras Primary MINDY Hutchison [id number] /2 E Insurance:CARESOURCEP TALATDOB: Formerly [facility] nancy [place]am[place] Number: [id number] Regional Medical Center [address]Jzt: [id number] Repository Date:2017-12-22P O (HP) [address]ATTN: [place] [address]HU: 12/22/2017 Secondary NOT GIVENUNK [place] Insurance:SELF PAY [facility] Number: Effective Repository Date:2017-12-22
== END ==
PROVIDERS: Family Provider Family Medicine; PCP Family Medicine; Referring Provider Family Medicine; Visit Provider Family Medicine
DX: R51 Headache (principal)
CPT/HCPCS: 70450

== ENCOUNTER 2018-09-09 21:37 | Emergency (ER) | payer MEDICAID, SELFPAY ==
[2018-09-09 21:38] VITALS: BP 139/96; PULSE 119; RESP 14; TEMP 37; O2SAT 99; BMI 29.0
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
[2018-09-09] MEDS: 0.9% Normal Saline 1,000 ML 999 ML IV (22:23)
[2018-09-09 22:31] LABS: Bedside Glucose 332 mg/dL (70-110)
[2018-09-09 23:21] LABS: Anion Gap 9 (5-15); BUN 10 mg/dL (7-18); BUN/Creat Ratio 11.2 RATIO (10-20); Calcium,Total 8.4 mg/dL (8.5-10.1); Chloride 103 mmol/L (98-107); EST Glomerular Filtration Rate 75 mL/min (>60); Est Glom Filt Rate - Afr Amer 90 mL/min (>60); Estimated Creatinine Clearance 72.47 ml/min; Glucose 322 mg/dL (74-106); Sodium Level 136 mmol/L (136-145)
--- NOTE | 2018-09-10 00:07 | ED.DEP ---
ED Disposition - Plan for ED Patient: Instructions: ED Overdose Opiate Referrals: Joey Bradshaw MD [Primary Care Provider] -
[2018-09-10 00:41] VITALS: PULSE 108; RESP 14; O2SAT 97
== END 2018-09-10 01:07 | disposition home or self-care (01) ==
LOC: ED 23:18
PROVIDERS: Emergency Provider Emergency Medicine; Family Provider Family Medicine; PCP Family Medicine
DX: T40.1X1A Poisoning by heroin, accidental (unintentional), initial encounter (principal); R00.0 Tachycardia, unspecified; Y92.009 Unspecified place in unspecified non-institutional (private) residence as the place of occurrence of the external cause; E11.65 Type 2 diabetes mellitus with hyperglycemia; I10 Essential (primary) hypertension; Z72.0 Tobacco use; Z79.4 Long term (current) use of insulin
CPT/HCPCS: 80048; 82962; 96360; 99284

== ENCOUNTER 2019-04-29 11:07 | Emergency (ER) | payer MEDICAID, SELFPAY ==
[2019-04-29 11:08] VITALS: BP 135/83; PULSE 107; RESP 16; TEMP 36.3; O2SAT 100; BMI 30.4
[2019-04-29 11:58] LABS: Mucous, Urine 0 SEEN /hpf (<or=2+); White Blood Cells 0 SEEN /hpf (0-5)
[2019-04-29 11:59] LABS: Color, Urine Yellow (Yellow); Glucose, Dipstick 1000 mg/dl (Normal); Ketone-Dipstick Negative (Negative); Leukocyte Esterase-Dipstick Negative /ul (Negative); Nitrite-Dipstick Negative (Negative); Occult Blood-Urine Negative /ul (Negative); Protein-Dipstick Negative (Negative); Specific Gravity, Urine 1.015 (1.002-1.030); Urine Bilirubin Dipstick Negative (Negative); Urine Clarity Sl. Cloudy (Clear); Urine Urobilinogen Normal (Normal); Urine pH 6.5 (5.0 - 8.0)
[2019-04-29 12:13] LABS: Red Blood Cells-Urine 0-5 SEEN /hpf (0-5); Squamous Epithelial Cells - UA 0-5 SEEN /hpf (5-10)
[2019-04-29 12:14] LABS: Bacteria RARE /hpf (None Seen)
--- NOTE | 2019-04-29 12:46 | ED.VIS.GEN ---
History of Present Illness Chief Complaint: Back Informant: Patient Onset: Today Narrative: Patient presents with left-sided lumbar pain is been ongoing for a few weeks, she has seen a physical therapist for it. She describes a lump. She has no flank pain, she has no dysuria or hematuria. She does admit to being a diabetic. No chest pain shortness of breath. No radiation of the pain to her legs. It is moderate, worse with moving Past Medical History - Allergies and Home Meds Allergies/Adverse Reactions: Allergies hydrocodone bitartrate [From Vicodin] Adverse Reaction (Verified 04/29/19 11:07) Vomiting hydromorphone HCl [From Dilaudid] Adverse Reaction (Verified 04/29/19 11:07) Other tramadol Adverse Reaction (Verified 04/29/19 11:07) Other HEART RACING Primary Care Physician: Joey Bradshaw MD [Primary Care Provider] - Prior records reviewed: Yes Past Medical History: - - Diabetes Surgical History: no surgical history, - - Excision pilonidal cyst, several I&D of abscesses and hidradenitis, renal stents with history of nephrolithiasis. Excision right axillary hidradenitis in 03/13. Excision left inguinal hidradenitis in 09/11. Surgical preparation right inguinal wound with excision hidradenitis (104 cm2) in 07/16. Smoking Status: Current every day smoker - Family History Maternal Family History: Reports: No pertinent history Paternal Family History: Reports: No pertinent history Review of Systems All systems negative except as indicated General: Denies: Fever Respiratory: Denies: Dyspnea Gastrointestinal: Denies: Abdominal pain Musculoskeletal: Reports: Myalgias, Back pain Skin: Denies: Rash Psych: Reports: Depression Endocrine: Reports: Polyuria Hematologic: Denies: Easy bruising Physical Exam Vital Signs/Narrative: Vital Signs Temp Pulse Resp BP Pulse Ox 04/29/19 11:08 97.4 F L 107 H 16 135/83 H 100 General: Well nourished, Well developed ENT: Moist mucous membranes Cardiovascular: Regular rate Respiratory: No distress, CTA bilaterally Abdomen: Soft, Nontender, Nondistended Back: - - There is tenderness along the paraspinal muscle groups, there is 1 area of muscle spasm and a trigger point. Extremities: Nontender, No edema Skin: Normal color Neurological: Alert, Normal Strength, Normal Sensation Psychological: Normal affect Diagnostic/Tx/Re-eval - Medical Decision Making Patient has an unremarkable urinalysis other than glucose in her urine. Told her she needs to keep her diabetes controlled. Otherwise this is musculoskeletal. She will be discharged in stable condition ED Disposition - Plan for ED Patient: Disposition: Home or Assisted Living Diagnosis: Lumbar strain Instructions: BACK PAIN (Acute or Chronic) Prescriptions: Tizanidine HCl 4 mg PO TID #21 tab Prescription Printed Referrals: Joey Bradshaw MD [Primary Care Provider] - 3-5 Days
[2019-04-29 13:24] VITALS: PULSE 94; RESP 16; O2SAT 99
== END 2019-04-29 13:27 | disposition home or self-care (01) ==
PROVIDERS: Emergency Provider Emergency Medicine; Family Provider Family Medicine; PCP Family Medicine
DX: S39.012A Strain of muscle, fascia and tendon of lower back, initial encounter (principal); E11.9 Type 2 diabetes mellitus without complications; F17.200 Nicotine dependence, unspecified, uncomplicated; X58.XXXA Exposure to other specified factors, initial encounter; Y93.89 Activity, other specified; Y92.89 Other specified places as the place of occurrence of the external cause; Y99.8 Other external cause status
CPT/HCPCS: 81001; 99282

== ENCOUNTER 2019-09-24 19:33 | Emergency (ER) | payer MEDICAID, SELFPAY ==
[2019-09-24 19:34] VITALS: BP 157/83; PULSE 106; RESP 20; TEMP 36.7; O2SAT 99; BMI 31.6
--- NOTE | 2019-09-24 19:59 | ED.VISSUMM ---
- ER Visit Summary Date of Service: 09/24/19 Chief Complaint: Dental pain History of Present Illness: The patient is a 39 F with dental pain for 2 weeks. Physical Examination: Mandibular central incisors are loose. There is a fractured tooth to her left maxillary molars secondary to underlying decay. Otherwise exam unremarkable. Test Results: None indicated Emergency Department Course and Treatment: Patient treated with Pen-Vee K and naproxen. Referred to dental for follow-up. Soft diet. Treatment Plan: As above Disposition: Discharge Impression: Dental pain This note was generated with Certalia dictation software. It may contain incorrect words, spelling, and punctuation that were not noted in review of the chart prior to signing ED Disposition - Plan for ED Patient: Referrals: Joey Bradshaw MD [Primary Care Provider] -
--- NOTE | 2019-09-24 20:00 | ED.DEP ---
ED Disposition - Plan for ED Patient: Instructions: ED Tooth Pain Prescriptions: Naproxen [Naprosyn] 500 mg PO BID PRN #20 tab Prescription Printed Penicillin V Potassium 500 mg PO 4X/DAY #40 tab Prescription Printed Referrals: Florina Silvestre [NON-STAFF] -
[2019-09-24] MEDS: Naproxen 500 MG Tablet PO (20:37)
[2019-09-24] MEDS: Penicillin Vk 250 MG Tablet 500 MG PO (20:37)
[2019-09-24 20:39] VITALS: BP 148/82; PULSE 88; RESP 16; O2SAT 97
== END 2019-09-24 20:40 | disposition home or self-care (01) ==
LOC: ED 19:59
PROVIDERS: Emergency Provider Emergency Medicine; PCP Family Medicine
DX: K08.89 Other specified disorders of teeth and supporting structures (principal); K02.9 Dental caries, unspecified
CPT/HCPCS: 99283

== ENCOUNTER → 2019-11-11 11:17 | Outpatient (CLI) | payer MEDICAID, SELFPAY ==
--- NOTE | 2019-11-11 10:51 | PCM.HP.BLA ---
History and Physical Date of Admission: 11/11/19 HISTORY AND PHYSICAL - BREAST COMPLAINT ? Dolores Faulkner 1980 ? ? REFERRING PHYSICIAN: Jeana Chatterjee)Netta* ? CHIEF COMPLAINT: Abnormal left breast imaging ? HPI: The patient is a 39 year old female with a complaint of an abnormal mammogram. The patient had a screening mammogram on July 14, 2019 with a follow-up diagnostic left mammogram with ultrasound on October 14, 2019 which demonstrated : ? IMPRESSION: SUSPICIOUS FINDING - BIOPSY SHOULD BE CONSIDERED The 1 cm oval equal density mass in the left breast is suspicious of malignancy. ?A stereotactic biopsy is recommended. ?The mass seen on the mammogram is not seen on the ultrasound. Therefore,stereotactic biopsy is suggested. ? TECHNIQUE: The study was acquired using full field digital technology and interpreted from soft copy. Current study was also evaluated with a Computer Aided Detection (CAD). Comparison is made to exam dated: ?07/14/2019 mammogram - [facility]. ?There are scattered fibroglandular elements in left breast. There is a 1 cm oval equal density mass with a circumscribed margin in the left breast at 1 o'clock middle depth. No other significant masses or calcifications are seen in the breast. ? The patient denies a history of breast masses. She does perform a self breast exam routinely. She notes no skin changes. She denies nipple discharge. She notes no axillary masses. She notes no family history of breast problems. She notes no significant breast trauma or breast difficulties in the past. ? . ? The patient is being seen by me today at the request of Jeana Chatterjee), Netta* my opinion and advice regarding abnormal left breast imaging. ? PAST MEDICAL HISTORY PAST MEDICAL HISTORY Diagnosis Date ? Cellulitis and abscess of upper arm and forearm ? ? RIGHT AXILLA ? Diabetes mellitus (HCC) ? ? Type 2 ? Heroin use 2016 ? admitted for overdose x 2 ? Neuropathy ? ? Pilonidal abscess ? ? ? PAST SURGICAL HISTORY PAST SURGICAL HISTORY Procedure Laterality Date ? DRAINAGE OF PILONIDAL CYST ? 03/10/10 ? In ER ? FRAGMENTING/KIDNEY STONE ? ? ? Lithotripsy ? I & D ABSCESS, SINGLE ? 05/13/08 ? RIGHT AXILLA ? PAST SURGICAL HISTORY OF ? ? ? removal boils ? PAST SURGICAL HISTORY OF ? ? ? Removed part of inner thigh ? ? CURRENT MEDICATIONS Current Outpatient Medications Medication Sig Dispense Refill ? insulin glargine (LANTUS) 100 unit/mL injection insulin glargine LANTUS 100 UNIT/ML JONNY INSULIN GLARGINE [id number] Tj Pemberton MD 08-26-2013 [facility] ([id number]) ? ? ? L. acidophilus-L. rhamnosus 15 billion cell cap Take 1 capsule by mouth once daily. [facility]OR[facility] WOMEN. If on antibiotic, take at least 1-2 hours before or after antibiotic. KEEP REFRIGERATED 30 capsule 11 ? ibuprofen (MOTRIN) 600 mg tablet Take 1 tablet by mouth every 6 hours as needed for Pain. 50 tablet 0 ? cholecalciferol, Vitamin D3, (VITAMIN D3) 1,250 mcg (50,000 unit) cap capsule Take 1 capsule by mouth one time a week. 8 capsule 0 ? lisinopril (ZESTRIL, PRINIVIL) 5 mg tablet Take 1 tablet by mouth once daily. 30 tablet 3 ? blood sugar diagnostic (BLOOD GLUCOSE TEST) test strip Test blood sugar(s) 4 times daily. Dx: Type 2 DM - Uncontrolled E11.65 Insulin: Yes 150 Strip 11 ? lancets (FREESTYLE LANCETS) 28 gauge misc Test blood sugar(s) 4 times daily. Dx: Type 2 DM - Controlled E11.9 Insulin: Yes 100 Each 11 ? docusate sodium (COLACE) 100 mg capsule Take 1 capsule by mouth once daily. 30 capsule 11 ? doxycycline monohydrate (MONODOX) 100 mg capsule Take 1 capsule by mouth twice daily. 20 capsule 0 ? amitriptyline (ELAVIL) 25 mg tablet Take 1 tablet by mouth daily at bedtime. 30 tablet 3 ? metFORMIN (GLUCOPHAGE) 1,000 mg tablet Take 1 tablet by mouth twice daily with meals. 180 tablet 0 ? Lancets lancets Test blood sugar(s) 4 times daily. Dx: Type 2 DM - Uncontrolled E11.65 Insulin: Yes 100 Each 11 ? Blood-Glucose Meter (FREESTYLE LITE METER) monitoring kit Freestyle LITE Meter Kit - Dx: Type 2 DM - Controlled E11.9 1 Each 0 ? insulin glargine (LANTUS SOLOSTAR, BASAGLAR SAMIKPEN) 100 unit/mL (3 mL) inpn Inject 13 Units subcutaneously twice daily. 3 Pen 5 ? No current facility-administered medications for this visit. ? ALLERGIES: Dilaudid [Hydromorphone (Bulk)]; Tramadol; Vicodin [Hydrocodone-Acetaminophen] ? PERSONAL HISTORY: SOCIAL HISTORY Social History ? Tobacco Use ? Smoking status: Current Every Day Smoker ? ? Packs/day: 0.25 ? ? Years: 5.00 ? ? Pack years: 1.25 ? ? Types: Cigars ? Smokeless tobacco: Never Used ? Tobacco comment: 1 cigar daily Substance Use Topics ? Alcohol use: No ? Drug use: No ? FAMILY HISTORY: FAMILY HISTORY FAMILY HISTORY Problem Relation Age of Onset ? Diabetes Mother ? ? Mental illness Father ? ? Diabetes Sister ? ? No Known Problems Sister ? ? No Known Problems Brother ? ? No Known Problems Brother ? ? No Known Problems Brother ? ? Diabetes Maternal Grandmother ? ? Diabetes Paternal Grandmother ? ? REVIEW OF SYMPTOMS: The review of systems data was entered by the nurse and reviewed by me ? Nursing Notes: Opal Denton RN 11/07/2019 11:09 AM Signed REVIEW OF SYSTEMS: General: The patient denies fatigue, denies weight loss, denies weight gain, denies feeling hot, and denies feelings of cold. Eyes: The patient denies glaucoma, notes eye injury/surgery, wears glasses or contacts. Ear/Nose/Throat: The patient denies allergies, denies hayfever, denies ear infections, and denies bloody noses. Cardiovascular: The patient denies chest pain, denies heart disease, denies high blood pressure,denies cardiac stent, denies prior heart attack, denies irregular heart beat, denies high cholesterol, denies poor circulation, denies heart failure, other cardiac issues, denies claudication, denies cold feet, denies peripheral arterial stent. Respiratory: The patient denies tuberculosis, denies pneumonia, denies frequent cough, denies pulmonary embolism, denies shortness of breath, and denies coughing up blood. Gastrointestinal: The patient denies difficulty swallowing, denies acid reflux, denies ulcers, denies vomiting, denies jaundice/hepatitis, denies gallbladder problems, denies black or tarry stools, denies hemorrhoids, denies bleeding from rectum, denies diverticulitis, denies constipation, denies diarrhea, denies loss of stool control, and denies hernias. Kidney/Bladder: The patient notes kidney stones, denies urine infections, and denies bloody urine. Skin: The patient denies a history of skin cancer, denies bleeding/changing moles, and denies a history of skin rash. Neurologic: The patient denies a history of epilepsy/convulsions, notes headaches, denies head/spinal injuries, and denies stroke/TIA. Psychiatric: The patient denies psychiatric medications, denies depression, and denies voices, denies substance abuse. Endocrine: The patient denies thyroid disorders, notes diabetes, and denies hormonal problems. Hematologic: The patient denies a history of bruising, denies bleeding, and denies anemia, denies blood clots. Infections: The patient denies a history of measles and mumps, denies rheumatic fever, and denies sexually transmitted diseases. Musculoskeletal: The patient denies back pain/injury, notes back problems, denies sciatica, denies knee/foot trouble, denies arthritis, or denies gout. ? ? When was patient's last Mammogram screening? 07/14/2019 ? Last Colonoscopy: no ? Opal Denton RN PHYSICAL EXAMINATION: ? General: The patient is 39 year old female, well nourished, well hydrated in no acute distress. The patient is oriented to time, place, and person. ? VITALS: Blood pressure 144/98, pulse (!) 133, temperature 36.6 ?C (97.9 ?F), temperature source Temporal Artery, weight 78 kg (172 lb), last menstrual period 06/17/2019, SpO2 98 %. Body mass index is 29.52 kg/m?. ? ? Breast: Visual inspection reveals no retractions, nipple inversion, or skin changes. Palpation of the right breast reveals no dominant or suspicious masses, but multiple benign-feeling nodules. Palpation of the left breast reveals no dominant or suspicious masses, but multiple benign-feeling nodules. No areas of concern are noted in the 12 to 1:00 position of the left breast. Axillary exam demonstrates no suspicious masses in either the left or right axilla. The patient had bilateral axillary excisions for his hidradenitis. There is no nipple discharge expressed from either the left or right breast. ? LABORATORY VALUES: As Noted ? RADIOLOGIC STUDIES: As Noted ? Assessment IMPRESSION: Abnormal left breast imaging ? PLAN: I plan to have Dr. Yanez perform a stereotactic biopsy of the left breast. The planned surgical procedure was discussed extensively with the patient. The risks, benefits, anticipated outcomes and possible complications were mentioned. My staff has also explained the procedure in understandable terms and the patient was given the option to take printed material concerning the planned procedure. The patient had the opportunity to ask questions concerning the planned procedure. The patient freely consents to the planned procedure. ? Diagnoses: (R92.8) Abnormal finding on breast imaging (primary encounter diagnosis) ? My findings have been communicated to Chatterjee via shared medical record. This note will be forwarded to Joey Bradshaw MD. ? Return to Clinic: The patient is instructed to follow-up with me after the testing has been completed. ? Clarence Pelaez MD
== END ==
PROVIDERS: PCP Family Medicine; Referring Provider Surgery; Visit Provider Surgery
DX: R92.8 Other abnormal and inconclusive findings on diagnostic imaging of breast (principal)

== ENCOUNTER → 2019-12-23 10:24 | Outpatient (CLI) | payer MEDICAID, SELFPAY ==
--- NOTE | 2019-12-23 | BRBX_PTH ---
PATIENT: MINDY GILLILAND LOC: [facility] U#:[id number] AGE/SX: 44/F ROOM: RE12/23/[address]: Dr. Natacha Yanez MD : 1980 BED: DIS: SPEC #: [id number] RECD: 12/23/19 13:42 STATUS: BRENDA RE #: [id number] JIMENEZ: 12/23/19 00:[address]: Natacha Yanez DEPT: SURGICAL PATHOLOGY RECD BY: Shailesh Pascal ENTERED: 12/23/19 13:42 SP TYPE: BREAST BX OTHR DR: Dr. Joey Bradshaw MD Tissues: Left breast, NOS Procedures: Surgery Specimen Level IV HEADER OPERATION: Left breast stereotactic biopsy PRE-OP DIAGNOSIS: Left breast density 1 o'clock middle depth TISSUE SUBMITTED: Left breast core tissue ISCHEMIC TIME: 1 minute FIXATION TIME: 7.5 hours MICROSCOPIC DIAGNOSIS Left breast, stereotactic needle core biopsy: Fibrocystic change. AM:latisha 12/24/19 MICROSCOPIC DESCRIPTION Slides are reviewed. GROSS DESCRIPTION Received is one container labeled with the patient's name and not further designated. The specimen consists of multiple elongated fragments of lundberg-yellow fibroadipose tissue that in aggregate measure 7.5 x 3 x 0.3 cm. The entire specimen is submitted in three cassettes. / SJ:latisha 12/23/19 TC:3 CPT: 09666
--- NOTE | 2019-12-23 11:52 | PCM.OPRPT ---
Report of Operation Date of Procedure: 12/23/19 Pre-Operative Diagnosis: abnormal density seen on left breast mammograms Post-Operative Diagnosis: same Surgery/Procedure Performed:: left stereotactic breast biopsy Description of Surgical Findings:: nodular density seen on left breast mammograms, biopsied Type of Anesthesia:: Local - 1% xylocaine Specimen's removed: left breast tissue Estimated Blood Loss (mL): minimal Fluids Replaced: none Description of Procedure: After informed consent was given, the patient was brought into the breast biopsy suite. Appropriate time out protocol was followed. She was then placed in the prone position on the stereotactic biopsy table. The patient?s left breast was then placed in the opening at the head of the table. A senior business consultant compression mammogram was then obtained in the CC view. The suspicious radiological lesion was then identified. Stereo pictures of the lesion were then taken for XYZ coordinates. The Mammotome biopsy stylus was then positioned where it would be entering into the patient?s breast. The skin at this site was then cleansed with a surgical skin preparation. The skin and subcutaneous tissues at this site were then infiltrated with 1% xylocaine. A small skin incision was made with an 11 blade scalpel. The biopsy stylus was then positioned into the patient?s breast at the proper coordinates of depth. Using the Mammotome vacuum-assist device, several core samples of breast tissue were obtained. A hemostatic marker clip was then placed into the biopsy cavity and a senior business consultant film revealed that it was properly deployed. The patient was then placed in the supine position and pressure was applied to the breast until no active bleeding was noted. Steristrips were applied to reapproximate the skin. A unilateral mammogram in the CC and MLO view were then taken which revealed that the marker clip was in the same area as the previous suspicious lesion. The patient tolerated the procedure well and was discharged from the breast biopsy suite in good condition. - Complications none noted
--- NOTE | 2019-12-23 11:55 | NURSING ---
pressure held on left breast for 3 minutes , no bleeding, no hardness, steri strips applied and opsite, reviewed dc instructions
== END ==
PROVIDERS: PCP Family Medicine; Referring Provider Surgery; Visit Provider Surgery
DX: N60.12 Diffuse cystic mastopathy of left breast (principal); E11.40 Type 2 diabetes mellitus with diabetic neuropathy, unspecified; Z79.4 Long term (current) use of insulin; Z79.84 Long term (current) use of oral hypoglycemic drugs; F17.290 Nicotine dependence, other tobacco product, uncomplicated
CPT/HCPCS: 19081; 88305; J7050; A4648

== ENCOUNTER 2022-06-26 11:28 | Emergency (ER) | payer MEDICAID, SELFPAY ==
[2022-06-26 11:29] VITALS: BP 149/98; PULSE 125; RESP 18; TEMP 36.8; O2SAT 100; BMI 28.3
[2022-06-26 13:02] LABS: Mucous, Urine 0 SEEN /hpf (<or=2+); Squamous Epithelial Cells - UA 0 SEEN /hpf (5-10)
[2022-06-26 13:04] LABS: Color, Urine Straw (Yellow); Glucose, Dipstick 1000 mg/dl (Normal); Ketone-Dipstick 5 mg/dl (Negative); Leukocyte Esterase-Dipstick 25 /ul (Negative); Nitrite-Dipstick Negative (Negative); Occult Blood-Urine 150 /ul (Negative); Protein-Dipstick 100 mg/dl (Negative); Urine Bilirubin Dipstick Negative (Negative); Urine Clarity Sl. Cloudy (Clear); Urine Urobilinogen Normal (Normal)
--- NOTE | 2022-06-26 13:08 | EDS_ITS ---
HPI History of Present Illness Chief Complaint: General Illness Detail of Chief Complaint: Low back pain and pain left lower extremity Informant: patient Onset/Context/Timing Onset: Days (3 days ago) Context: Sudden Onset Timing: Continuous Quality: Pain Location: Low back, posterior left thigh and medial side of left leg Current Severity: Mild Maximum Severity: Moderate Worsened by: Movement Relieved by: Nothing Associated Symptoms Associated Symptoms: No bowel bladder dysfunction, saddle paresthesia or anesthesia, foot drop e Narrative Narrative: Patient is a 41-year-old woman who presents with atraumatic low back pain. She denies fever, chills night sweats. She denies bowel bladder dysfunction. No saddle paresthesia or anesthesia. She denies foot drop. She states her knee buckled once. She denies dysuria, frequency, urgency or hematuria. She denies recent surgical procedure. She denies recent dental infection. She denies zak ng immune suppressed. Prior similar symptoms: No Recent Illness/Hospitalization: No PFSH PFSH Medical History Anemia Anxiety Arthritis Back pain Diabetes DM type 2 (diabetes mellitus, type 2) Gastric reflux History of edema History of pain when walking Hx of hidradenitis suppurativa Injury of back Injury of head and neck Kidney stones Leg cramps Loss of consciousness Migraine headache Personal history of Methicillin resistant Staphylococcus aureus infection Right axillary hidradenitis Smoker Smoker Wears dentures Wears glasses Home Medications apple cider vinegar 500 mg tablet 500 mg PO DAILY 02/09/21 [History Last Taken Unknown] cinnamon bark 500 mg capsule (Cinnamon) 500 mg PO DAILY 02/09/21 [History Last Taken Unknown] cyanocobalamin (vitamin B-12) 25 mcg tablet 50 mcg PO DAILY 02/09/21 [History Last Taken Unknown] ferrous sulfate 325 mg (65 mg iron) tablet,delayed release 325 mg PO DAILY 02/09/21 [History Last Taken Unknown] naproxen 500 mg tablet 500 mg PO BID #14 tabs 06/26/22 [Rx Last Taken Unknown] Allergy/AdvReac Type Severity Reaction Status Date / Time hydrocodone bitartrate AdvReac Vomiting Verified 06/26/22 11:29 [From Vicodin] hydromorphone HCl AdvReac Other Verified 06/26/22 11:29 [From Dilaudid] tramadol AdvReac Other Verified 06/26/22 11:29 Family History Other Diabetes Surgical History Hidradenitis History of cystoscopy Hx of tooth extraction Social History (Updated 06/26/22 @ 13:[address] Olegario Hastings MD) household members: none Smoking Status: Current every day smoker tobacco type: cigarettes second hand exposure: Yes counseling given: provider counseling alcohol intake: former substance use type: marijuana additional social history: Does Not Take Aspirin Does Take Ibuprofen As Needed ROS ROS ED Constitutional Constitutional ED: Denies chills, fever(s), subjective, sweats or weight loss Eyes Eyes: Denies blurry vision or change in vision ENT ENT ED: Denies rhinorrhea or sore throat Cardiovascular Cardiovascular: Denies chest pain or palpitations Respiratory/Chest Respiratory/Chest: Denies cough, dyspnea or dyspnea on exertion Gastrointestinal Gastrointestinal: Denies abdominal pain, diarrhea, nausea or vomiting Genitourinary Genitourinary ED: Denies dysuria, hematuria or urinary frequency Musculoskeletal Musculoskeletal: Reports back pain; Denies arthralgias, myalgias or neck pain Neurologic Neurologic: Denies headache(s), paresthesias or weakness Psychiatric Psychiatric: Denies anxiety or depression Hematologic/Lymphatic Hematologic/Lymphatic: Reports systems reviewed and no addt'l complaints, except as documented EXAM Physical Exam Const Vital Signs: 06/26/22 11:29 06/26/22 13:04 Temperature 98.2 F Temperature Source Temporal Pulse Rate 125 H Respiratory Rate 18 Respiratory Effort Normal Respiratory Pattern Normal Blood Pressure 149/98 H Blood Pressure Mean 115 Pulse Ox 100 Oxygen Delivery Method Room Air Positive well nourished and well developed Constitutional Narrative: Patient is lying on the cot.. She is on her right side. She is listening to music. General Appearance ED: well developed and NAD; Negative for pallor HEENT Reports moist mucous membranes HEENT Narrative: Head is atraumatic normocephalic. Ears normal. Nares patent. Mucosa moist. Eyes PERRL and EOMs intact bilaterally General Eye ED: Negative for pale conjunctiva or scleral icterus Neck No no lymphadenopathy, No supple and No no JVD Chest Wall inspection of chest normal and palpation of chest normal Resp normal respiratory effort and clear to auscultation bilaterally Cardio regular rate, regular rhythm, S1 normal heart sound, S2 normal heart sound and no murmurs GI normal to inspection, nondistended, normoactive bowel sounds, non-tender, non- distended and no masses; Negative for hepatosplenomegaly Back/Spine no CVA tenderness Back/Spine Narrative: Straight leg test is negative. Crossover test is negative. Femoral stretch test is negative. Patella and ankle reflex are 1+ and symmetric. EHLs intact. Gait was observed with no foot drop. Able to walk on heels and toes. Able to perform 1 legged squat right and left. Normal sensation over L3, L4, L5 and S1. Cervical Spine: Negative for cervical spine tenderness Thoracic Spine / Upper Back: Negative for thoracic spinal tenderness Lumbar Spine / Lower Back: lumbar spinal tenderness Extremity normal to inspection General Extremety ED: Negative for edema or tenderness General Extremity: Negative for edema Neuro oriented x3, CN's II-XII intact bilaterally and no sensory deficits noted Sensorium / Orientation: alert Sensory Exam: sensory level loss detected Psych mental status grossly normal Skin no rashes or lesions noted, no wounds and skin turgor normal General Skin Exam: Negative for jaundice or pallor MDM MDM MDM Narrative Medical decision making narrative: Patient with muscular low back pain without sciatica. Imaging is not required since its atraumatic and neuro exam is normal. Patient was treated with NSAIDs and she has no contraindication. Discharge Plan Triage Chief Complaint: General Illness ED Provider: Olegario Hastings Dx/Rx/DC Orders Clinical Impression: Low back pain Instructions: ED Back and Neck Pain, General Prescriptions: New naproxen 500 mg tablet 500 mg PO BID Qty: 14 0RF No Action ferrous sulfate 325 mg (65 mg iron) Tablet,Delayed Release (Dr/Ec) 325 mg PO DAILY Vitamin B-12 25 mcg Tablet 50 mcg PO DAILY apple cider vinegar 500 mg Tablet 500 mg PO DAILY cinnamon bark [Cinnamon] 500 mg Capsule 500 mg PO DAILY Primary Care Provider: Joey Bradshaw Referrals: Joey Bradshaw MD [Primary Care Provider] - 3-5 Days if not improving Activity Restrictions/Additional Instructions: Apply ice to the lower back 6-10 times a day for the next 3 to 5 days. Avoid activity that causes you increased pain Disposition Disposition: Home, Self Care
[2022-06-26 13:12] LABS: Bacteria 4+ /hpf (None Seen); Red Blood Cells-Urine 0-5 SEEN /hpf (0-5); White Blood Cells 0-5 SEEN /hpf (0-5)
--- NOTE | 2022-06-26 13:18 | EDS_ITS ---
HPI History of Present Illness Chief Complaint: General Illness [facility] Medical History Anemia Anxiety Arthritis Back pain Diabetes DM type 2 (diabetes mellitus, type 2) Gastric reflux History of edema History of pain when walking Hx of hidradenitis suppurativa Injury of back Injury of head and neck Kidney stones Leg cramps Loss of consciousness Migraine headache Personal history of Methicillin resistant Staphylococcus aureus infection Right axillary hidradenitis Smoker Smoker Wears dentures Wears glasses Home Medications apple cider vinegar 500 mg tablet 500 mg PO DAILY 02/09/21 [History Last Taken Unknown] cinnamon bark 500 mg capsule (Cinnamon) 500 mg PO DAILY 02/09/21 [History Last Taken Unknown] cyanocobalamin (vitamin B-12) 25 mcg tablet 50 mcg PO DAILY 02/09/21 [History Last Taken Unknown] ferrous sulfate 325 mg (65 mg iron) tablet,delayed release 325 mg PO DAILY 02/09/21 [History Last Taken Unknown] naproxen 500 mg tablet 500 mg PO BID #14 tabs 06/26/22 [Rx Last Taken Unknown] Allergy/AdvReac Type Severity Reaction Status Date / Time hydrocodone bitartrate AdvReac Vomiting Verified 06/26/22 11:29 [From Vicodin] hydromorphone HCl AdvReac Other Verified 06/26/22 11:29 [From Dilaudid] tramadol AdvReac Other Verified 06/26/22 11:29 Family History Other Diabetes Surgical History Hidradenitis History of cystoscopy Hx of tooth extraction Social History (Updated 06/26/22 @ 13:[address] Olegario Hastings MD) household members: none Smoking Status: Current every day smoker tobacco type: cigarettes second hand exposure: Yes counseling given: provider counseling alcohol intake: former substance use type: marijuana additional social history: Does Not Take Aspirin Does Take Ibuprofen As Needed EXAM Physical Exam Const Vital Signs: 06/26/22 11:29 06/26/22 13:04 Temperature 98.2 F Temperature Source Temporal Pulse Rate 125 H Respiratory Rate 18 Respiratory Effort Normal Respiratory Pattern Normal Blood Pressure 149/98 H Blood Pressure Mean 115 Pulse Ox 100 Oxygen Delivery Method Room Air [facility] Lab Data Attestation: I reviewed the patient's lab results. Lab results narrative: Patient has 4+ bacteria on urine specimen. However there is no pyuria. Nitrites is negative. Since patient is asymptomatic we will send culture. If positive she will require antibiotics. Labs: Laboratory Results - last 24 hr 06/26/22 12:55 Urine Color Straw Urine Clarity Sl. Cloudy Urine pH 5.0 Ur Specific Siren 1.020 Urine Protein 100 H Urine Glucose (UA) 1000 H Urine Ketones 5 H Urine Occult Blood 150 H Urine Nitrite Negative Urine Bilirubin Negative Urine Urobilinogen Normal Ur Leukocyte Esterase 25 H Urine RBC 0-5 SEEN Urine WBC 0-5 SEEN Ur Squamous Epith Cells 0 SEEN Urine Bacteria 4+ Urine Mucus 0 SEEN Discharge Plan Triage Chief Complaint: General Illness ED Provider: Olegario Hastings Dx/Rx/DC Orders Clinical Impression: Low back pain Instructions: ED Back and Neck Pain, General Prescriptions: New naproxen 500 mg tablet 500 mg PO BID Qty: 14 0RF No Action ferrous sulfate 325 mg (65 mg iron) Tablet,Delayed Release (Dr/Ec) 325 mg PO DAILY Vitamin B-12 25 mcg Tablet 50 mcg PO DAILY apple cider vinegar 500 mg Tablet 500 mg PO DAILY cinnamon bark [Cinnamon] 500 mg Capsule 500 mg PO DAILY Primary Care Provider: Joey Bradshaw Referrals: Joey Bradshaw MD [Primary Care Provider] - 3-5 Days if not improving Activity Restrictions/Additional Instructions: Apply ice to the lower back 6-10 times a day for the next 3 to 5 days. Avoid activity that causes you increased pain Disposition Disposition: Home, Self Care
--- NOTE | 2022-06-26 13:19 | EDS_ITS ---
HPI History of Present Illness Chief Complaint: General Illness [facility] Medical History Anemia Anxiety Arthritis Back pain Diabetes DM type 2 (diabetes mellitus, type 2) Gastric reflux History of edema History of pain when walking Hx of hidradenitis suppurativa Injury of back Injury of head and neck Kidney stones Leg cramps Loss of consciousness Migraine headache Personal history of Methicillin resistant Staphylococcus aureus infection Right axillary hidradenitis Smoker Smoker Wears dentures Wears glasses Home Medications apple cider vinegar 500 mg tablet 500 mg PO DAILY 02/09/21 [History Last Taken Unknown] cinnamon bark 500 mg capsule (Cinnamon) 500 mg PO DAILY 02/09/21 [History Last Taken Unknown] cyanocobalamin (vitamin B-12) 25 mcg tablet 50 mcg PO DAILY 02/09/21 [History Last Taken Unknown] ferrous sulfate 325 mg (65 mg iron) tablet,delayed release 325 mg PO DAILY 02/09/21 [History Last Taken Unknown] naproxen 500 mg tablet 500 mg PO BID #14 tabs 06/26/22 [Rx Last Taken Unknown] Allergy/AdvReac Type Severity Reaction Status Date / Time hydrocodone bitartrate AdvReac Vomiting Verified 06/26/22 11:29 [From Vicodin] hydromorphone HCl AdvReac Other Verified 06/26/22 11:29 [From Dilaudid] tramadol AdvReac Other Verified 06/26/22 11:29 Family History Other Diabetes Surgical History Hidradenitis History of cystoscopy Hx of tooth extraction Social History (Updated 06/26/22 @ 13:[address] Olegario Hastings MD) household members: none Smoking Status: Current every day smoker tobacco type: cigarettes second hand exposure: Yes counseling given: provider counseling alcohol intake: former substance use type: marijuana additional social history: Does Not Take Aspirin Does Take Ibuprofen As Needed EXAM Physical Exam Const Vital Signs: 06/26/22 11:29 06/26/22 13:04 Temperature 98.2 F Temperature Source Temporal Pulse Rate 125 H Respiratory Rate 18 Respiratory Effort Normal Respiratory Pattern Normal Blood Pressure 149/98 H Blood Pressure Mean 115 Pulse Ox 100 Oxygen Delivery Method Room Air MDM MDM Lab Data Labs: Laboratory Results - last 24 hr 06/26/22 12:55 Urine Color Straw Urine Clarity Sl. Cloudy Urine pH 5.0 Ur Specific [place] 1.020 Urine Protein 100 H Urine Glucose (UA) 1000 H Urine Ketones 5 H Urine Occult Blood 150 H Urine Nitrite Negative Urine Bilirubin Negative Urine Urobilinogen Normal Ur Leukocyte Esterase 25 H Urine RBC 0-5 SEEN Urine WBC 0-5 SEEN Ur Squamous Epith Cells 0 SEEN Urine Bacteria 4+ Urine Mucus 0 SEEN Treatment and Re-Evaluation Narrative: This chart should be combined with the first chart that was signed. For reasons I am not certain of a new chart open when I meant to dictate an addendum on the initial signed chart. Discharge Plan Triage Chief Complaint: General Illness ED Provider: Olegario Hastings Dx/Rx/DC Orders Clinical Impression: Low back pain Instructions: ED Back and Neck Pain, General Prescriptions: New naproxen 500 mg tablet 500 mg PO BID Qty: 14 0RF No Action ferrous sulfate 325 mg (65 mg iron) Tablet,Delayed Release (Dr/Ec) 325 mg PO DAILY Vitamin B-12 25 mcg Tablet 50 mcg PO DAILY apple cider vinegar 500 mg Tablet 500 mg PO DAILY cinnamon bark [Cinnamon] 500 mg Capsule 500 mg PO DAILY Primary Care Provider: Joey Bradshaw Referrals: Joey Bradshaw MD [Primary Care Provider] - 3-5 Days if not improving Activity Restrictions/Additional Instructions: Apply ice to the lower back 6-10 times a day for the next 3 to 5 days. Avoid activity that causes you increased pain Disposition Disposition: Home, Self Care
[2022-06-26] MEDS: Naproxen 250 MG Tablet 500 MG PO (13:31)
== END 2022-06-26 13:33 | disposition home or self-care (01) ==
PROVIDERS: Emergency Provider Emergency Medicine; PCP Family Medicine; Visit Provider Emergency Medicine
DX: M54.50 Low back pain, unspecified (principal); F12.90 Cannabis use, unspecified, uncomplicated; F17.210 Nicotine dependence, cigarettes, uncomplicated; Z79.899 Other long term (current) drug therapy
CPT/HCPCS: 81001; 87086; 87088; 87186; 99283

== ENCOUNTER 2022-12-21 16:36 | Emergency (ER) | payer MEDICAID, SELFPAY ==
[2022-12-21 16:37] VITALS: BP 151/94; PULSE 129; RESP 16; TEMP 36.6; O2SAT 100
[2022-12-21 17:01] VITALS: BMI 26.1
[2022-12-21 17:02] VITALS: BP 138/88; PULSE 124; RESP 16; O2SAT 100
--- NOTE | 2022-12-21 17:15 | ED.RN ---
pt reports that pain 'has been making me very depressed and anxious. havent taken my meds including insulin for 4 days
[2022-12-21 17:27] LABS: Absolute Lymphocyte Count 2.55 X10^3/uL (0.83-4.51); Absolute Neutrophil Count 2.1 X10^3/uL (2.0-7.7); Basophil# 0.06 X10^3/uL; Basophil% 1.1 % (0-1); Eosinophil# 0.12 X10^3/uL; Eosinophils% 2.3 % (0-5); Hematocrit 37.8 % (37-47); Hemoglobin 12.8 g/dL (12.0-15.0); Lymphocyte # 2.55 X10^3/ul (0.83-4.51); Lymphocyte % 48.4 % (19-41); Mean Corp Hgb Conc 33.9 g/dL (32-36); Mean Corpuscular Hgb 29.4 pg (27.0-32.0); Mean Corpuscular Volume 86.9 fL (81-99); Mean Platelet Vol. 10.9 fl (6.2-12.0); Monocyte# 0.44 X10^3/uL; Monocyte% 8.3 % (0-10); NRBC Flagged by Analyzer 0 % (0-5); Neutrophil # 2.09 X10^3/uL (2.7-7.7); Neutrophil % 39.7 % (47-70); Platelet Count 244 K/mm3 (150-450); RBC Distribution Width CV 12.4 % (11.6-14.6); RBC Distribution Width SD 39.6 fl (35.1-43.9); Red Blood Count 4.35 M/mm3 (4.2-5.4); White Blood Count 5.3 K/mm3 (4.4-11.0)
[2022-12-21 17:34] LABS: Erythrocyte Sedimentation Rate 12 mm/hr (0-30)
[2022-12-21 17:50] LABS: ALB/GLOB Ratio 0.8 RATIO (0.9-2.4); AST(SGOT) 12 U/L (15-37); Alanine Aminotransfer ALT/SGPT 19 U/L (13-56); Alkaline Phosphatase 79 U/L (45-117); Anion Gap 4 (5-15); BUN 16 mg/dL (7-18); BUN/Creat Ratio 17.2 RATIO (10-20); CPK Total, Creatine Kinase 80 U/L (26-192); Calcium,Total 8.8 mg/dL (8.5-10.1); Chloride 106 mmol/L (98-107); Creatinine, Serum 0.93 mg/dL (0.55-1.02); EST Glomerular Filtration Rate 70 mL/min (>60); Est Glom Filt Rate - Afr Amer 84 mL/min (>60); Estimated Creatinine Clearance 64.52 ml/min; Globulin 3.8 g/dL (2.2-4.2); Glucose 291 mg/dL (74-106); Protein, Total 6.8 g/dL (6.4-8.2); Sodium Level 138 mmol/L (136-145)
[2022-12-21 18:24] VITALS: BP 154/97; PULSE 124; RESP 20; O2SAT 100
--- NOTE | 2022-12-21 18:56 | EDS_ITS ---
HPI History of Present Illness Chief Complaint: Lower Extremity Injury Detail of Chief Complaint: Anterior left thigh pain, stabbing electrical sensation tip of index finger Informant: patient Onset/Context/Timing Onset: Month(s) Context: - (Does not recall) Timing: Continuous and Waxes and wanes Quality: Per HPI narrative Location: Index finger, nose, vagina and anterior left thigh Current Severity: Mild Maximum Severity: Severe Worsened by: Nothing Relieved by: Nothing Associated Symptoms Associated Symptoms: Pain Narrative Narrative: Patient is a 42-year-old woman with history of type 2 diabetes, hidradenitis requiring operative intervention by surgeon left groin and left axillary region. She presents with thigh pain since April. She states it is severe. There is nothing that alleviates or exacerbates her pain. She also complains of a sharp stinky electrical-like sensation tip of her index finger nose and vagina. She denies fever, chills night sweats. She denies headache. Denies visual, ocular auditory symptoms. She denies throat pain. She denies neck pain. She denies cardiac or respiratory symptoms. She denies nausea, vomit diarrhea. She does admit to smoking. She denies drug use but admitted to marijuana use. Prior similar symptoms: No Recent Illness/Hospitalization: No [facility] [place] [facility] Medical History Anemia Anxiety Arthritis Back pain Diabetes DM type 2 (diabetes mellitus, type 2) Gastric reflux History of edema History of pain when walking Hx of hidradenitis suppurativa Injury of back Injury of head and neck Kidney stones Leg cramps Loss of consciousness Migraine headache Personal history of Methicillin resistant Staphylococcus aureus infection Right axillary hidradenitis Smoker Smoker Wears dentures Wears glasses Home Medications apple cider vinegar 500 mg tablet 500 mg PO DAILY 02/09/21 [History Last Taken Unknown] cinnamon bark 500 mg capsule (Cinnamon) 500 mg PO DAILY 02/09/21 [History Last Taken Unknown] cyanocobalamin (vitamin B-12) 25 mcg tablet 50 mcg PO DAILY 02/09/21 [History Last Taken Unknown] ferrous sulfate 325 mg (65 mg iron) tablet,delayed release 325 mg PO DAILY 02/09/21 [History Last Taken Unknown] naproxen 500 mg tablet 500 mg PO BID #14 tabs 06/26/22 [Rx Last Taken Unknown] Allergy/AdvReac Type Severity Reaction Status Date / Time hydrocodone bitartrate AdvReac Vomiting Verified 12/21/22 16:36 [From Vicodin] hydromorphone HCl AdvReac Other Verified 12/21/22 16:36 [From Dilaudid] tramadol AdvReac Other Verified 12/21/22 16:36 Family History Other Diabetes Surgical History Hidradenitis History of cystoscopy Hx of tooth extraction Social History household members: none Smoking Status: Current every day smoker tobacco type: cigarettes second hand exposure: Yes counseling given: provider counseling alcohol intake: former substance use type: marijuana additional social history: Does Not Take Aspirin Does Take Ibuprofen As Needed ROS ROS ED Constitutional Constitutional ED: Denies chills, fever(s), subjective, sweats or weight loss Eyes Eyes: Denies blurry vision, change in vision or diplopia ENT ENT ED: Denies ear pain, rhinorrhea or sore throat Cardiovascular Cardiovascular: Denies chest pain, orthopnea, palpitations or racing heartbeat Respiratory/Chest Respiratory/Chest: Denies cough, dyspnea, dyspnea on exertion or orthopnea Gastrointestinal Gastrointestinal: Denies abdominal pain, diarrhea, nausea or vomiting Genitourinary Genitourinary ED: Denies dysuria, hematuria or urinary frequency Musculoskeletal Musculoskeletal: Reports other Details: Per HPI ; Denies arthralgias, back pain, myalgias or neck pain Integumentary Denies abscess, Abrasions or rash Neurologic Neurologic: Denies headache(s), paresthesias or weakness Endocrine Endocrinology: Denies cold intolerance or heat intolerance Hematologic/Lymphatic Hematologic/Lymphatic: Reports systems reviewed and no addt'l complaints, except as documented EXAM Physical Exam Const Vital Signs: 12/21/22 16:37 12/21/22 17:02 12/21/22 18:24 Temperature 97.9 F Temperature Source Temporal Pulse Rate 129 H 124 H 124 H Respiratory Rate 16 16 20 H Blood Pressure 151/94 H 138/88 H 154/97 H Blood Pressure Mean 113 104 116 Pulse Ox 100 100 100 Oxygen Delivery Method Room Air Room Air Room Air Positive well nourished and well developed General Appearance ED: well developed and NAD; Negative for cyanotic, diaphoretic or pallor HEENT Reports moist mucous membranes HEENT Narrative: Atraumatic normocephalic. Ears normal. Nares patent. No abnormality noted. Posterior pharynx is normal. Eyes PERRL and EOMs intact bilaterally General Eye ED: Negative for pale conjunctiva or scleral icterus Neck no lymphadenopathy, supple and no JVD Chest Wall inspection of chest normal and palpation of chest normal Resp normal respiratory effort and clear to auscultation bilaterally Cardio regular rate, S1 normal heart sound, S2 normal heart sound and no murmurs Rate: tachycardic GI normal to inspection, nondistended, normoactive bowel sounds, non-tender, non- distended and no masses; Negative for hepatosplenomegaly Auscultation: normoactive bowel sounds Palpation: soft Back/Spine no CVA tenderness Cervical Spine: Negative for cervical spine tenderness Thoracic Spine / Upper Back: Negative for thoracic spinal tenderness Extremity normal to inspection Extremity Narrative: Well-healed scars noted. Neuro oriented x3, CN's II-XII intact bilaterally and no sensory deficits noted Sensorium / Orientation: alert Motor Exam: strength 5/5 throughout Skin no rashes or lesions noted, no wounds and skin turgor normal Skin Narrative: Well-healed scars noted. General Skin Exam: elasticity normal; Negative for jaundice or pallor MDM MDM MDM Narrative Medical decision making narrative: Since patient tachycardic has unusual symptoms will obtain blood work to assess for infection, myositis, or other causes. I was informed at 1900 the patient left with her IV. Nurse was instructed to call police. Lab Data Attestation: I reviewed the patient's lab results. Lab results narrative: ABC is on room comprehensive metabolic panel reveals a glucose of 291 with normal CO2 anion gap. Patient does have a history of diabetes. Sed rate is normal. Labs: Laboratory Results - last 24 hr 12/21/22 12/21/22 17:10 17:10 WBC 5.3 RBC 4.35 Hgb 12.8 Hct 37.8 MCV 86.9 MCH 29.4 MCHC 33.9 RDW Std Deviation 39.6 RDW Coeff of [place] 12.4 Plt Count 244 MPV 10.9 Immature Gran % (Auto) 0.200 Neut % (Auto) 39.7 L Lymph % (Auto) 48.4 H [place] % (Auto) 8.3 Eos % (Auto) 2.3 Baso % (Auto) 1.1 H Absolute Neuts (auto) 2.1 Absolute Lymphs (auto) 2.55 Nucleated RBC % 0 ESR 12 Sodium 138 Potassium 4.0 Chloride 106 Carbon Dioxide 28.0 Anion Gap 4 L BUN 16 Creatinine 0.93 Estim Creat Clear Calc 64.52 Est GFR (MDRD) Af Amer 84 Est GFR (MDRD) Non-Af 70 BUN/Creatinine Ratio 17.2 Glucose 291 H Calcium 8.8 Total Bilirubin 0.20 AST 12 L ALT 19 Alkaline Phosphatase 79 Total Creatine Kinase 80 Total Protein 6.8 Albumin 3.0 L Globulin 3.8 Albumin/Globulin Ratio 0.8 L Treatment and Re-Evaluation :: Informed by the charge nurse that the taxi was waiting for her when she flat after the IV was placed. The police did check a residence. The IV is out. Will need a care plan regarding no IV placement unless absolutely indicated and no opiates etc. unless patient has verifiable reason for medication. Discharge Plan Triage Chief Complaint: Lower Extremity Injury ED Provider: Olegario Hastings Dx/Rx/DC Orders Clinical Impression: Sinus tachycardia, Benign hypertension, Left thigh pain, Controlled type 2 diabetes mellitus with hyperglycemia, Neuralgia Prescriptions: No Action ferrous sulfate 325 mg (65 mg iron) Tablet,Delayed Release (Dr/Ec) 325 mg PO DAILY Vitamin B-12 25 mcg Tablet 50 mcg PO DAILY apple cider vinegar 500 mg Tablet 500 mg PO DAILY cinnamon bark [Cinnamon] 500 mg Capsule 500 mg PO DAILY naproxen 500 mg tablet 500 mg PO BID Qty: 14 0RF Primary Care Provider: Joey Bradshaw Referrals: Joey Bradshaw MD [Primary Care Provider] - Disposition Disposition: [facility] Discharge Date/Time: 12/21/22 19:00
--- NOTE | 2022-12-21 18:58 | ED.RN ---
THIS RN WAS INFORMED BY [facility] THAT WHILE STANDING OUT FRONT IN TRIAGE THEY WITNESSED AN PT IN AN ORANGE DRESS LEAVE QUICKLY FROM THE ER THROUGH THE FRONT DOORS INTO A WAITING TAXI WITH HER IV STILL IN. THIS RN ATTEMPTED TO CALL PT CELL NUMBER, THE WOMAN THAT ANSWERED STATED HER NAME WAS DEEPAK AND THAT I HAD THE WRONG NUMBER. DR SIM NOTIFIED. HE STATES TO CALL POLICE TO HAVE IV REMOVED.
--- NOTE | 2022-12-21 19:11 | NURSING ---
pt asking where other bathroom was as closest one occupied. pt around corner to use other bathroom. charger informed rn that pt got in a taxi and that iv never taken out. officer eduardo contacted for home f/u d.t pt behavior.
--- NOTE | 2022-12-21 19:15 | ED.RN ---
[facility] STATES THEY FOUND HER AND SHE NO LONGER HAD AN IV IN. DRESSING IN PLACE. DR. SIM NOTIFIED
== END 2022-12-21 19:00 | disposition left against medical advice (07) ==
LOC: ED 17:06
PROVIDERS: Emergency Provider Emergency Medicine; PCP Family Medicine; Visit Provider Emergency Medicine
DX: M79.652 Pain in left thigh (principal); E11.65 Type 2 diabetes mellitus with hyperglycemia; R00.0 Tachycardia, unspecified; F17.210 Nicotine dependence, cigarettes, uncomplicated; I10 Essential (primary) hypertension; M79.2 Neuralgia and neuritis, unspecified
CPT/HCPCS: 80053; 82550; 85025; 85652; 99283

== ENCOUNTER 2024-04-14 00:45 | Emergency (ER) | payer MEDICAID, SELFPAY ==
[2024-04-14 00:45] VITALS: BP 206/117; PULSE 103; RESP 18; TEMP 36.6; O2SAT 99; BMI 23.8
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
[2024-04-14 01:12] VITALS: BP 175/84; PULSE 66; RESP 18; TEMP 36.9; O2SAT 100
[2024-04-14] MEDS: traMADol 50 MG Tablet PO (01:14)
== END 2024-04-14 01:15 | disposition home or self-care (01) ==
LOC: ED 01:12
PROVIDERS: Emergency Provider Emergency Medicine; Visit Provider Emergency Medicine
DX: G89.29 Other chronic pain (principal); E11.9 Type 2 diabetes mellitus without complications; F17.210 Nicotine dependence, cigarettes, uncomplicated
CPT/HCPCS: 99282

== ENCOUNTER 2024-09-23 13:04 | Emergency (ER) | payer MEDICAID, SELFPAY ==
[2024-09-23 13:04] VITALS: BP 170/100; PULSE 102; RESP 14; TEMP 35.8; O2SAT 100; BMI 27.7
--- NOTE | 2024-09-23 13:39 | VDLE_ITS ---
Reason For Study Reason For Study: Bilateral leg swelling RIGHT LEFT GSV is normal. GSV is normal. CFV is compressible, spontaneous, phasic, competent CFV is compressible, spontaneous, phasic, competent, and demonstrates normal augmentation. and demonstrates normal augmentation. FV is compressible, spontaneous, phasic, competent FV is compressible, spontaneous, phasic, competent and demonstrates normal augmentation. and demonstrates normal augmentation. POP V is compressible, spontaneous, phasic, competent POP V is compressible, spontaneous, phasic, competent and demonstrates normal augmentation. and demonstrates normal augmentation. T/P Trunk is compressible. T/P Trunk is compressible. PTV is compressible. PTV is compressible. RT PerV is compressible. LT PerV is compressible. Procedure This is a venous duplex using B-mode, color flow and spectral Doppler. Exam performed portable in ED. A preliminary report was called and/or faxed to ED. VL/Venous Duplex US - Yoshi Extrem Interpretation Summary Deep veins of the lower extremities are bilaterally patent and compressible seg mentally. There is no evidence of deep vein thrombosis on either side. Valvular competence appears intact within the p roximal deep venous systems bilaterally. The great saphenous veins appear bilaterally patent and compressible segmentall y. Ordering Physician: Jose Garza Performed By: Parisa Yanez RVT
--- NOTE | 2024-09-23 13:40 | EX.ED.DYSGE1 ---
HPI History of Present Illness Chief Complaint: Lower Extremity Injury Detail of Chief Complaint: Leg spasms Informant: patient Narrative Narrative: Patient presents to the emergency room with complaint of leg spasms that started about 2 weeks ago or so. Usually worse at night. Describes the spasms as in her groin bilaterally. Spasm into her upper thighs. Does not involve the lower extremities. She has noticed some swelling in both lower extremities. Patient states that she has a history of hidradenitis suppurativa for which she has had surgery for. Patient describes and cloudy urine. No dysuria urgency or frequency. She no shortness of breath. She denies recent travel or surgery. No history of PE or DVT. Does not see a primary care physician. [facility] Medical History Wears dentures Wears glasses Anxiety Diabetes Kidney stones Anemia Back pain Injury of back Migraine headache Injury of head and neck Loss of consciousness Gastric reflux Smoker Leg cramps History of pain when walking History of edema Hx of hidradenitis suppurativa Personal history of Methicillin resistant Staphylococcus aureus infection Right axillary hidradenitis Arthritis Smoker DM type 2 (diabetes mellitus, type 2) Home Medications ?Medication ?Instructions ?Recorded ?Last Taken ?Type amlodipine 5 mg tablet (Norvasc) 5 mg PO DAILY #30 tabs 09/23/24 Unknown Rx metformin 850 mg tablet 850 mg PO DAILY #30 tabs 09/23/24 Unknown Rx sulfamethoxazole 800 1 tab PO BID #14 tabs 09/23/24 Unknown Rx mg-trimethoprim 160 mg tablet (Bactrim DS) Allergy/AdvReac Type Severity Reaction Status Date / Time hydrocodone bitartrate (From AdvReac Vomiting Verified 09/23/24 13:04 Vicodin) hydromorphone HCl (From AdvReac Other Verified 09/23/24 13:04 Dilaudid) tramadol AdvReac Other Verified 09/23/24 13:04 Family History Other Diabetes Surgical History Hx of tooth extraction History of cystoscopy Hidradenitis Social History household members: none Smoking Status: Current every day smoker tobacco type: cigarettes second hand exposure: Yes alcohol intake: former substance use type: marijuana additional social history: Does Not Take Aspirin Does Take Ibuprofen As Needed ROS ROS ED Review of Systems ROS Unobtainable: other Constitutional Constitutional ED: Reports lethargy; Denies chills, fever(s), sweats or weight loss Eyes Eyes: Denies blurry vision, change in vision or diplopia ENT ENT ED: Denies rhinorrhea or sore throat Cardiovascular Cardiovascular: Denies chest pain, orthopnea or racing heartbeat Respiratory/Chest Respiratory/Chest: Denies cough, dyspnea, dyspnea on exertion, orthopnea or sputum Gastrointestinal Gastrointestinal: Denies abdominal pain, diarrhea, nausea or vomiting Genitourinary Genitourinary ED: Denies dysuria, hematuria or urinary frequency Musculoskeletal Musculoskeletal: Reports other Details: Bilateral leg edema, leg spasms ; Denies arthralgias, back pain, myalgias or neck pain Integumentary Denies abscess, Abrasions or rash Neurologic Neurologic: Denies headache(s) or weakness Psychiatric Psychiatric: Denies anxiety, depression or suicidal thoughts Endocrine Endocrinology: Denies polydipsia, polyphagia or polyuria Hematologic/Lymphatic Hematologic/Lymphatic: Denies easy bleeding, easy bruising or lymphadenopathy Allergic/Immunologic Allergic/Immunologic ED: Denies mouth swelling, tongue swelling or urticaria EXAM Physical Exam Const Vital Signs: 09/23/24 13:04 Temperature 96.5 F L Temperature Source Temporal Pulse Rate 102 H Respiratory Rate 14 Blood Pressure 170/100 H Blood Pressure Mean 123 Pulse Ox 100 Positive well nourished and well developed General Appearance ED: well developed and NAD HEENT Reports TM's clear and moist mucous membranes normocephalic and atraumatic; Negative for trauma or tenderness Tympanic Membrane ED: Yes TM's clear Eyes PERRL and EOMs intact bilaterally General Eye ED: Negative for pale conjunctiva or scleral icterus Neck no lymphadenopathy, supple and no JVD General: Negative for tenderness Chest Wall inspection of chest normal and palpation of chest normal Chest: Negative for tenderness Resp normal respiratory effort and clear to auscultation bilaterally Effort and Inspection: Negative for respiratory distress or pain with movement Auscultation: Negative for rhonchi, wheezes or diminished lung sounds Cardio regular rate, regular rhythm, S1 normal heart sound, S2 normal heart sound and no murmurs Peripheral Pulses: pulses 2+ throughout GI normal to inspection, nondistended, normoactive bowel sounds, soft to palpation, non-tender, non-distended and no masses Back/Spine no CVA tenderness and no thoracic nor lumbar tenderness Extremity Extremity Narrative: Patient with +1 edema both lower extremities from thighs down to feet. No ropes or cords palpated. No cellulitic changes. No masses palpated. General Extremety ED: Yes edema General Extremity: edema Neuro oriented x3, CN's II-XII intact bilaterally, no sensory deficits noted and gait normal Sensorium / Orientation: awake, alert, oriented to person, oriented to place and oriented to time Motor Exam: strength 5/5 throughout and strength abnormal Psych mental status grossly normal Skin no rashes or lesions noted and no wounds MDM MDM MDM Narrative Medical decision making narrative: Patient presents with some spasms in her groin. Ongoing for 2 weeks. She complains of some frothy urine at times. Denies fevers or chills or sweats. She has history of diabetes and hypertension but noncompliant with medication. She has an appointment to see a primary care physician on October 06. Patient had venous Dopplers of both lower extremities obtained and these were negative for DVT. CBC with differential, 6.6 with hemoglobin 13.5 and platelet count 285. Chemistries show a sodium of 132 with potassium of 3.6 and chloride of 99. BUN was 12 and creatinine 0.95. LFTs unremarkable. Urinalysis positive for UTI and as well as spilling glucose. Patient started on Bactrim. Patient's glucose was elevated here 415 therefore I did start her on metformin. Patient also was given Norvasc 5 mg p.o. I will write her a prescription for metformin as well as Norvasc and Bactrim. Clinically she looks well. I feel she can be discharged to home. Advised to follow-up with primary care physician as scheduled. Lab Data Attestation: I reviewed the patient's lab results. Labs: Laboratory Results - last 24 hr 09/23/24 09/23/24 13:30 13:50 WBC 6.6 RBC 4.53 Hgb 13.5 Hct 38.8 MCV 85.7 MCH 29.8 MCHC 34.8 RDW Std Deviation 37.6 RDW Coeff of Giselle 12.0 Plt Count 285 MPV 11.0 Immature Gran % (Auto) 0.300 Neut % (Auto) 53.1 Lymph % (Auto) 35.8 Cavalier % (Auto) 6.8 Eos % (Auto) 2.9 Baso % (Auto) 1.1 H Absolute Neuts (auto) 3.5 Absolute Lymphs (auto) 2.36 Nucleated RBC % 0 Sodium 132 L Potassium 3.6 Chloride 99 Carbon Dioxide 24.2 Anion Gap 9 BUN 12 Creatinine 0.95 Estim Creat Clear Calc 70.64 Est GFR (MDRD) Non-Af 75 BUN/Creatinine Ratio 12.2 Glucose 415 H Calcium 8.1 Magnesium 1.8 Total Bilirubin < 0.15 AST 21 ALT 15 Alkaline Phosphatase 73 Total Protein 5.6 L Albumin 2.2 L Globulin 3.3 Albumin/Globulin Ratio 0.7 L Urine Color Straw Urine Clarity Cloudy Urine pH 6.5 Ur Specific Hamilton 1.015 Urine Protein 500 H Urine Glucose (UA) 1000 H Urine Ketones 5 H Urine Occult Blood 50 H Urine Nitrite Negative Urine Bilirubin Negative Urine Urobilinogen Normal Ur Leukocyte Esterase 100 H Urine RBC 5-10 SEEN Urine WBC 50-100 SEEN Ur Squamous Epith Cells 0 SEEN Urine Bacteria 3+ Urine Mucus RARE Discharge Plan Triage Chief Complaint: Lower Extremity Injury ED Provider: Jose Garza Dx/Rx/DC Orders Clinical Impression: UTI (urinary tract infection), Type 2 diabetes mellitus, Hypertension Instructions: ED Diabetes- Overview, ED High Blood Pressure Hypertension, ED UTIs Women Prescriptions: New metformin 850 mg tablet 850 mg PO DAILY Qty: 30 0RF amlodipine [Norvasc] 5 mg tablet 5 mg PO DAILY Qty: 30 0RF sulfamethoxazole-trimethoprim [Bactrim DS] 800-160 mg tablet 1 tab PO BID Qty: 14 0RF Primary Care Provider: Care Physician,No Primary Referrals: Yariel Cruz MD [Med Staff - [facility]] - 3-5 Days Care Physician,No Primary [Primary Care Provider] - Activity Restrictions/Additional Instructions: Keep your appointment with primary care physician. Print Language: Bengali Disposition Disposition: Home, Self Care
[2024-09-23 13:55] LABS: Absolute Lymphocyte Count 2.36 X10^3/uL (0.83-4.51); Absolute Neutrophil Count 3.5 X10^3/uL (2.0-7.7); Basophil# 0.07 X10^3/uL; Basophil% 1.1 % (0-1); Eosinophil# 0.19 X10^3/uL; Eosinophils% 2.9 % (0-5); Hematocrit 38.8 % (37-47); Hemoglobin 13.5 g/dL (12.0-15.0); Lymphocyte # 2.36 X10^3/ul (0.83-4.51); Lymphocyte % 35.8 % (19-41); Mean Corp Hgb Conc 34.8 g/dL (32-36); Mean Corpuscular Hgb 29.8 pg (27.0-32.0); Mean Corpuscular Volume 85.7 fL (81-99); Monocyte# 0.45 X10^3/uL; Monocyte% 6.8 % (0-10); NRBC Flagged by Analyzer 0 % (0-5); Neutrophil # 3.51 X10^3/uL (2.7-7.7); Neutrophil % 53.1 % (47-70); Platelet Count 285 K/mm3 (150-450); RBC Distribution Width SD 37.6 fl (35.1-43.9); Red Blood Count 4.53 M/mm3 (4.2-5.4); White Blood Count 6.6 K/mm3 (4.4-11.0)
[2024-09-23 13:57] LABS: Squamous Epithelial Cells - UA 0 SEEN /hpf (5-10)
[2024-09-23 14:01] LABS: Color, Urine Straw (Yellow); Glucose, Dipstick 1000 mg/dl (Normal); Ketone-Dipstick 5 mg/dl (Negative); Leukocyte Esterase-Dipstick 100 /ul (Negative); Nitrite-Dipstick Negative (Negative); Occult Blood-Urine 50 /ul (Negative); Protein-Dipstick 500 mg/dl (Negative); Specific Gravity, Urine 1.015 (1.002-1.030); Urine Bilirubin Dipstick Negative (Negative); Urine Clarity Cloudy (Clear); Urine Urobilinogen Normal (Normal); Urine pH 6.5 (5.0 - 8.0)
[2024-09-23 14:20] LABS: Mucous, Urine RARE /hpf (<or=2+); Red Blood Cells-Urine 5-10 SEEN /hpf (0-5); White Blood Cells 50-100 SEEN /hpf (0-5)
[2024-09-23 14:21] LABS: Bacteria 3+ /hpf (None Seen)
[2024-09-23 14:37] LABS: Magnesium 1.8 mg/dL (1.5-2.2)
[2024-09-23 14:52] LABS: ALB/GLOB Ratio 0.7 RATIO (0.9-2.4); AST(SGOT) 21 U/L (<=31); Alanine Aminotransfer ALT/SGPT 15 U/L (<=34); Albumin, Serum 2.2 g/dL (3.5-5.0); Alkaline Phosphatase 73 U/L (35-104); Anion Gap 9 (5-15); BUN 12 mg/dL (4-19); BUN/Creat Ratio 12.2 RATIO (10-20); Calcium,Total 8.1 mg/dL (7.6-11.0); Carbon Dioxide 24.2 mmol/L (21.0-32.0); Chloride 99 mmol/L (98-108); Creatinine, Serum 0.95 mg/dL (0.70-1.20); EST Glomerular Filtration Rate 75 (>60); Estimated Creatinine Clearance 70.64 ml/min (50-250); Globulin 3.3 g/dL (2.2-4.2); Glucose 415 mg/dL (70-99); Potassium 3.6 mmol/L (3.3-5.1); Protein, Total 5.6 g/dL (5.9-8.4); Sodium Level 132 mmol/L (133-145); Total Bilirubin < 0.15 mg/dL (0.00-1.30)
[2024-09-23] MEDS: amLODIPine 5 MG Tablet PO (15:38)
[2024-09-23] MEDS: Smz/Tmp Ds Tablet 1 TABLET PO (15:38)
[2024-09-23 15:39] VITALS: BP 183/111; PULSE 107; RESP 16; O2SAT 100
[2024-09-23 15:40] VITALS: BP 175/106; PULSE 105; RESP 16; TEMP 35.8; O2SAT 100
== END 2024-09-23 16:00 | disposition home or self-care (01) ==
PROVIDERS: Emergency Provider Emergency Medicine; Visit Provider Emergency Medicine
DX: M62.838 Other muscle spasm (principal); E11.9 Type 2 diabetes mellitus without complications; N39.0 Urinary tract infection, site not specified; F17.210 Nicotine dependence, cigarettes, uncomplicated; I10 Essential (primary) hypertension; Z79.84 Long term (current) use of oral hypoglycemic drugs; Z79.899 Other long term (current) drug therapy; M79.89 Other specified soft tissue disorders
CPT/HCPCS: 80053; 81001; 83735; 85025; 87086; 87088; 87186; 93970; 99284; A4216

== ENCOUNTER 2025-05-05 05:43 | Inpatient (IN) | payer MEDICAID, SELFPAY ==
[2025-05-05] VITALS (11 sets, daily range): BP systolic 142–188; BP diastolic 79–109; PULSE 104–121; RESP 16–22; TEMP 36.6–36.8; O2SAT 97–100; BMI 29.0; BMI 27.7
--- NOTE | 2025-05-05 06:06 | EKG12_ITS ---
Test Reason : CP Blood Pressure : */* mmHG Vent. Rate : 122 BPM Atrial Rate : 122 BPM P-R Int : 142 ms QRS Dur : 76 ms QT Int : 322 ms P-R-T Axes : 49 85 67 degrees QTcB Int : 458 ms Sinus tachycardia Nonspecific T wave abnormality Abnormal ECG Confirmed by Lopez Polanco ([id number]), editorial director ANJALI FANG ([id number]) on 05/06/2025 12:34:40 PM Referred By: BITA Confirmed By: Lopez Polanco
[2025-05-05] MEDS: Ketorolac 30 MG/ML Syringe IV (06:15)
[2025-05-05] MEDS: 0.9% Normal Saline (1000mL) 1,000 ML 999 ML IV (06:15)
[2025-05-05 06:17] LABS: Hematocrit 31.3 % (37-47); Hemoglobin 10.8 g/dL (12.0-15.0); Immature Granulocytes Count 0.030 X10^3/uL (0.0-0.0); Mean Corp Hgb Conc 34.5 g/dL (32-36); Mean Corpuscular Volume 85.3 fL (81-99); Mean Platelet Vol. 11.7 fl (6.2-12.0); NRBC Flagged by Analyzer 0 % (0-5); Platelet Count 199 K/mm3 (150-450); RBC Distribution Width CV 13.1 % (11.6-14.6); RBC Distribution Width SD 40.3 fl (35.1-43.9); Red Blood Count 3.67 M/mm3 (4.2-5.4); White Blood Count 8.1 K/mm3 (4.4-11.0)
--- NOTE | 2025-05-05 06:25 | RAD_ITS ---
PROCEDURE: CHEST PA AND LATERAL 05/05/2025 REASON FOR EXAM: DYSPNEA TECHNIQUE: Procedure Code: RADCXR Modality: DX Procedure: CHEST PA AND LATERAL COMPARISON: CT chest angiogram done same day FINDINGS: The lungs are adequately aerated bilaterally with trace bilateral pleural effusions. Infiltrative airspace opacities are noted bilaterally, particularly on the right. Mild central vascular congestion. Coarse pulmonary markings. No cardiomegaly. Mild degenerative changes of the shoulders and spine. RAD/Chest PA and Lateral IMPRESSION: Small bilateral pleural effusions with infiltrative airspace opacities. Reading Location: [place] [id number]
[2025-05-05 06:30] LABS: D-Dimer Quantitative (DVT/PE) 3.43 FEU/ug/m (0.27-0.49)
--- NOTE | 2025-05-05 06:30 | CT_ITS ---
PROCEDURE: CTA CHEST W/WO CONTRAST 05/05/2025 REASON FOR EXAM: CHEST PAIN WITH ELEVATED D-DIMER TECHNIQUE: Procedure Code: [id number] Modality: CT Procedure: CTA CHEST W/WO CONTRAST Multiplanar Sagittal and Coronal images were obtained. CONTRAST: 84 cc Isovue 370 One or more dose reduction techniques were used (e.g., Automated exposure control, adjustment of the mA and/or kV according to patient size, use of iterative reconstruction technique). RADIATION DOSE SUMMARY: DLP: 256 mGycm COMPARISON: May 05, 2025 FINDINGS: Hardware: None Lymph nodes: There is no pathologic adenopathy by size criteria. Heart: Within normal limits. Atherosclerotic calcifications are visible. RV/LV Diameter Ratio: 0.8 Thoracic Aorta: Within normal limits Pulmonary Vessels: Main pulmonary artery Hounsfield units = 619. There is no visible pulmonary embolus. Lungs and Airways: There are patchy interstitial and alveolar infiltrates. There is a 0.6 cm ground-glass nodular density in the right upper lung, image 198/253. There is a 0.5 cm ground-glass nodule in the right mid lung, image 121/253. There is a 0.6 cm ground-glass nodular density in the left mid lung, image 168/253. There is a 0.4 cm solid nodular density in the periphery of the upper portion of the left lower lobe, image 188/253. Pleura: There is a 2.3 cm right pleural effusion. There is a 2.1 cm left pleural effusion. Upper Abdomen: A 0.2 cm nonobstructing stone is noted in the left renal midpole. Bones: There is no acute bony abnormality. CT/CTA Chest W/WO Contrast IMPRESSION: There is no visible pulmonary embolus. There are patchy interstitial and alveolar infiltrates. There is a 0.6 cm ground-glass nodular density in the right upper lung, image 1 98/253. There is a 0.5 cm ground-glass nodule in the right mid lung, image 121/253. There is a 0.6 cm ground-glass nodular dens ity in the left mid lung, image 168/253. There is a 0.4 cm solid nodular density in the periphery of the upper portion of the lef t lower lobe, image 188/253. Follow-up is recommended. There is a 2.3 cm right pleural effusion. There is a 2.1 cm left pleural effusi on. A 0.2 cm nonobstructing stone is noted in the left renal midpole. Reading Location: [facility]
[2025-05-05 06:34] LABS: BETA-HYDROXYBUTYRATE 0.2 mmol/L (0.0-0.3); Magnesium 2.2 mg/dL (1.5-2.2); Pro- Brain NATRIURETIC PEPTIDE 17518 pg/mL (<=450)
[2025-05-05 06:45] LABS: Anion Gap 9 (5-15); BUN 30 mg/dL (4-19); BUN/Creat Ratio 12.6 RATIO (10-20); Calcium,Total 7.7 mg/dL (7.6-11.0); Carbon Dioxide 17.0 mmol/L (21.0-32.0); Chloride 110 mmol/L (98-108); Estimated Creatinine Clearance 28.38 ml/min (50-250); Glucose 189 mg/dL (70-99); Potassium 3.8 mmol/L (3.3-5.1)
--- OUTSIDE RECORDS SUMMARY | 2025-05-05 06:58 | XMS RPT_ITS | CCD ---
Author Organization [facility] Care Team Providers Care Leach Runner Name Role Phone Pierce Pemberton MD Unavailable Porsha Salas Unavailable Unavailable Joey Bradshaw MD Primary Care Provider Joey Bradshaw MD Primary Care Provider Riya Silverio DO Primary Care Provider Anastasiia Joaquin MD Unavailable [phone] Care Physician, No Primary Primary Care Provider Unavailable Dr. Jose Garza DO Emergency Provider Ayush Helm Attending Unavailable Care Physician, No Primary Primary Care Unava ilable Care Physician, No Primary Primary Care Unava ilable Jose Garza Attending Unavailable RIYA SILVERIO Primary Care Unavailable ANASTASIIA JOAQUIN Attending Unavailable Allergies Allergy Classification Reported Allergen(s) Allergy Type Date of Onset Reaction(s) Facility (10 sources) Acetaminophen / HYDROcodone; Translations: [HYDROCODONE-ACET AMINOPHEN] Drug Allergy 3 GI Upset [facility] (10 sources) HYDROmorphone; Translations: [HYDROMORPHONE (BULK)] Drug Allergy 3 Mental Status Change [facility] (14 sources) traMADol; Translations: [TRAMADOL] Drug Allergy 6 Other: See Comments [facility] Comment on above: HEART RACING (4 sources) HYDROcodone; Translations: [hydrocodone bitartrate] Drug Allergy 12-26-202 2 Vomiting [facility] (4 sources) HYDROmorphone; Translations: [hydromorphone HCl] Drug Allergy 2 Other [facility] Medications Current Medications Medication Drug Class(es) Dates Sig (Normalized) Sig (Original) amitriptyline hydrochloride 25 mg oral tablet (20 sources) Tricyclic Antidepressant Start: 09-24-2019 End: 01-25-2021 take 1 tablet by mouth once daily at bedtime amitriptyline (ELAVIL) 25 mg tablet Indications: Neuropathic pain Take 1 tablet by mouth daily at bedtime. 30 tablet 3 12/11/2019 Active End: 08-27-2012 take 1 tablet by mouth once daily AMITRIPTYLINE HCL 50 MG TABS One tablet by mouth daily AMITRIPTYLINE HCL [id number] Austin Bello DO Comment on above: Take 1 tablet by greg th daily at bedtime. amLODIPine 5 mg oral tablet (1 source) Dihydropyridine Calcium Channel Justin Start: 09-24-19 25 take 1 tablet by mouth once daily Amlodipine (Norvasc) 5 mg tablet Active 5 mg PO DAILY September 23, 2024 12:00am amoxicillin 875 mg oral tablet (8 sources) Penicillin-class Antibacterial Start: 12-22-19 take 1 tablet by mouth twice daily amoxicillin (AMOXIL) 875 mg tablet Take 875 mg by mouth twice daily. 12/22/2019 Active Comment on above: Take 875 mg by mouth twice daily. Blood-Glucose Meter (FREESTYLE LITE METER) monitoring kit (8 sources) Start: 03-30-20 17 Blood-Glucose Meter (FREESTYLE LITE METER) monitoring kit Freestyle LITE Meter Kit - Dx: Type 2 DM - Controlled E11.9 1 Each 03/30/2017 Active Start: 03-30-2017 Blood-Glucose Meter (FREESTYLE LITE METER) monitoring kit Freestyle LITE Meter Kit - Dx: Type 2 DM - Controlled E11.9 1 Each 0 03/30/2017 Active Comment on above: Freestyle LITE Meter Kit - Dx: Type 2 DM - Controlled E11.9 cholecalciferol 1.25 mg oral capsule (8 sources) Vitamin D Start: 07-15-19 20 take 1 capsule by mouth every week cholecalciferol, Vitamin D3, (VITAMIN D3) 1,250 mcg (50,000 unit) cap capsule Indications: vitamin D deficiency Take 1 capsule by mouth one time a week. 8 capsule 07/15/2019 Active Comment on above: Take 1 capsule by [facility] one time a week. doxycycline monohydrate 100 mg oral capsule (20 sources) Tetracycline-class Drug Start: 07-10-19 20 take 1 capsule by mouth twice daily doxycycline monohydrate (MONODOX) 100 mg capsule Indications: Bronchitis Take 1 capsule by mouth twice daily. 20 capsule 07/10/2019 Active Start: 07-12-2015 End: 03-07-2017 take 1 tablet by mouth twice daily DOXYCYCLINE HYCLATE 100 MG TABS One tablet by mouth twice daily DOXYCYCLINE HYCLATE [id number] Natacha Alfred LPN Start: 04-21-2013 End: 05-15-2013 take 1 capsule by mouth twice daily Doxycycline Hyclate 100 MG capsule Discontinued 100 mg PO TWICE A DAY April 21, 2013 12:00am May 15, 2013 1:37pm Start: 03-14-2012 End: 08-27-2012 take 1 tablet by mouth twice daily VIBRAMYCIN 100 MG CAPS One tablet by mouth twice daily DOXYCYCLINE HYCLATE [id number] Pierce Pemberton MD Start: 03-14-2012 End: 08-27-2012 take 1 tablet by mouth twice daily VIBRAMYCIN 100 MG CAPS One tablet by mouth twice daily DOXYCYCLINE HYCLATE [id number] Pierce Pemberton MD Start: 06-08-2011 End: 08-27-2012 take 1 tablet by mouth once daily at mealtime DOXYCYCLINE HYCLATE 100 MG TABS 1 tab by mouth daily with food. DOXYCYCLINE HYCLATE [id number] Pierce Pemberton MD Comment on above: Take 1 capsule by [facility] twice daily. ibuprofen 600 mg oral tablet (14 sources) Nonsteroidal Anti-inflammatory Drug Start: 0 take 1 tablet by mouth every six hours as needed for pain ibuprofen (MOTRIN) 600 mg tablet Indications: Cervical radiculopathy Take 1 tablet by mouth every 6 hours as needed for Pain. 50 tablet 04/27/2020 Active Start: 03-07-2017 take 1 tablet by greg th twice daily as needed for pain IBUPROFEN 800 MG TABS One tablet by mouth twice daily as needed for pain IBUPROFEN [id number] Pierce Pemberton MD Comment on above: Take 1 tablet by greg th every 6 hours as needed for Pain. 3 ml insulin glargine 100 unt/ml pen injector (20 sources) Insulin Analogue Start: 08-14-2018 insulin glargine (LANTUS SOLOSTAR, BASAGLAR KWIKPEN) 100 unit/mL (3 mL) inpn Indications: Uncontrolled type 2 diabetes mellitus without complication, with long-term current use of insulin Inject 13 Units subcutaneously twice daily. 3 Pen 5 08/14/2018 Active Start: 08-14-2018 insulin glargi ne (LANTUS SOLOSTAR, BASAGLAR KWIKPEN) 100 unit/mL (3 mL) inpn Indications: Uncontrolled type 2 diabetes mellitus without complication, with long-term current use of insulin Inject 13 Units subcutaneously twice daily. 3 Pen 5 08/14/2018 Active Start: 07-17-2014 End: 07-22-2014 Insulin Glargine (Lantus Kourtney ostar Pen) 100 UNITS/ML Pen Discontinued 10 U SC AT BEDTIME July 17, 2014 1:00am July 22, 2014 2:30pm Start: 07-17-2014 End: 07-22-2014 Insulin Glargine (Lantus Kourtney ostar Pen) 100 UNITS/ML Pen Discontinued 10 UNITS SC AT BEDTIME July 17, 2014 1:00am July 22, 2014 2:30pm Start: 08-26-2013 insulin glargi ne (LANTUS) 100 unit/mL injection insulin glargine LANTUS 100 UNIT/ML [facility] INSULIN GLARGINE [id number] Pierce Pemberton MD 08-26-2013 [facility] ([id number]) 08/26/2013 Active Start: 08-26-2013 LANTUS 100 UNI T/ML [facility] INSULIN GLARGINE [id number] Pierce Pemberton MD Comment on above: insulin glargine PORFIRIO TUS 100 UNIT/ML SOLN INSULIN GLARGINE [id number] Pierce Pemberton MD 08-26-2013 [facility] ([id number]) Inject 13 Units subc utaneously twice daily. L. acidophilus-L. rhamnosus 15 billion cell cap (8 sources) Start: 10-03-19 take 1 capsule by mouth once daily L. acidophilus-L. rhamnosus 15 billion cell cap Indications: Vaginal yeast infection Take 1 capsule by mouth once daily. [employer]. If on antibiotic, take at least 1-2 hours before or after antibiotic. KEEP REFRIGERATED 30 capsule 11 10/03/2019 Active Comment on above: Take 1 capsule by mo [facility] once daily. [employer]OM[employer]. If on antibiotic, take at least 1-2 hours before or after antibiotic. KEEP REFRIGERATED lisinopril 5 mg oral tablet (8 sources) Angiotensin Converting Enzyme Inhibitor Start: 07-11-19 take 1 tablet by mouth once daily lisinopril (ZESTRIL, PRINIVIL) 5 mg tablet Indications: Type 2 diabetes mellitus with other skin complication, with long-term current use of insulin (HCC) Take 1 tablet by mouth once daily. 30 tablet 3 07/11/2019 Active Comment on above: Take 1 tablet by greg once daily. metFORMIN hydrochloride 850 mg oral tablet (20 sources) Biguanide Start: 09-24-19 take 1 tablet by mouth once daily Metformin 850 mg tablet Active 850 mg PO DAILY September 23, 2024 12:00am Start: 08-14-2018 End: 01-25-2021 take 1 tablet by mouth twice daily Metformin 1,000 MG tablet Discontinued 1000 mg PO TWICE A DAY September 09, 2018 12:00am January 25, 2021 3:48pm End: 08-27-2012 take 2 tablets by mouth once daily METFORMIN HCL 500 MG TABS Two tablets by mouth daily METFORMIN HCL [id number] Austin Bello DO take 1 tablet by greg th twice daily METFORMIN HCL ER (OSM) 1000 MG [id number] One tablet by mouth twice daily METFORMIN HCL [id number] Pierce Pemberton MD take 1 tablet by greg th twice daily METFORMIN HCL ER (OSM) 1000 MG [id number] One tablet by mouth twice daily METFORMIN HCL [id number] Pierce Pemberton MD Comment on above: Take 1 tablet by greg th twice daily with meals. sulfamethoxazole 800 mg / trimethoprim 160 mg oral tablet (15 sources) Dihydrofolate Reductase Inhibitor Antibacterial, Sulfonamide Antimicrobial Start: 09-23-2024 Sulfamethoxazole-T rimethoprim (Bactrim Ds) 800-160 mg tablet Active 1 {tbl} PO TWICE A DAY September 23, 2024 12:00am Start: 08-27-2012 End: 07-14-2014 take 1 tablet by mouth twice daily BACTRIM DS 800-160 MG TABS One tablet by mouth twice daily SULFAMETHOXAZOLE-TRIMETHOPRIM [id number] Natacha Alfred LPN Start: 08-27-2012 take 1 tablet by greg th twice daily BACTRIM DS 800-160 MG TABS One tablet by mouth twice daily SULFAMETHOXAZOLE-TRIMETHOPRIM [id number] Pierce Pemberton MD Start: 08-27-2012 End: 07-14-2014 take 1 tablet by mouth twice daily BACTRIM DS 800-160 MG TABS One tablet by mouth twice daily SULFAMETHOXAZOLE-TRIMETHOPRIM [id number] Natacha Alfred LPN Completed/Discontinued Medications Medication Drug Class(es) Dates Sig (Normalized) Sig (Original) acetaminophen 325 mg / oxyCODONE hydrochloride 5 mg oral tablet (20 sources) Opioid Agonist Start: 06-30-2018 End: 07-02-2018 Oxycodone-Acetamino phen 1 TABLET tablet Discontinued 1 {tbl} PO EVERY 6 HOURS NEEDED as needed for Pain 5 2 June 30, 2018 1:00am July 01, 2018 1:00am July 02, 2018 1:10am Start: 06-30-2018 End: 07-02-2018 take 1 tablet by mouth every six hours as needed Oxycodone-Acetaminophen Discontinued 1 TABLET PO EVERY 6 HOURS NEEDED 5 2 June 30, 2018 1:00am July 02, 2018 1:10am Start: 07-12-2015 End: 03-07-2017 take 1 tablet by mouth once daily as needed for pain PERCOCET 7.5-325 MG TABS One tablet by mouth daily as needed for pain OXYCODONE-ACETAMINOPHEN [id number] Pierce Pemberton MD Start: 07-12-2015 End: 03-07-2017 take 1 tablet by mouth once daily as needed for pain PERCOCET 7.5-325 MG TABS One tablet by mouth daily as needed for pain OXYCODONE-ACETAMINOPHEN [id number] Natacha Alfred LPN Start: 07-12-2015 take 1 tablet by greg th once daily as needed for pain PERCOCET 7.5-325 MG TABS One tablet by mouth daily as needed for pain OXYCODONE-ACETAMINOPHEN [id number] Pierce Pemberton MD Start: 01-22-2015 End: 03-07-2017 take 1 tablet by mouth twice daily as needed for pain PERCOCET 7.5-325 MG TABS One tablet by mouth twice daily as needed for pain OXYCODONE-ACETAMINOPHEN [id number] Pierce Pemberton MD Start: 01-22-2015 End: 03-07-2017 take 1 tablet by mouth twice daily as needed for pain PERCOCET 7.5-325 MG TABS One tablet by mouth twice daily as needed for pain OXYCODONE-ACETAMINOPHEN [id number] Natacha Alfred LPN Start: 01-22-2015 take 1 tablet by greg th twice daily as needed for pain PERCOCET 7.5-325 MG TABS One tablet by mouth twice daily as needed for pain OXYCODONE-ACETAMINOPHEN [id number] Pierce Pemberton MD Start: 11-20-2014 End: 03-07-2017 take 1-2 tablets by mouth four times daily as needed for pain PERCOCET 7.5-325 MG TABS one to two tablets by mouth four times daily as needed for pain OXYCODONE-ACETAMINOPHEN [id number] Natacha Alfred LPN Start: 11-20-2014 take 1-2 tablets by mouth four times daily as needed for pain PERCOCET 7.5-325 MG TABS one to two tablets by mouth four times daily as needed for pain OXYCODONE-ACETAMINOPHEN [id number] Pierce Pemberton MD Start: 10-29-2014 End: 03-07-2017 take 1-2 tablets by mouth four times daily as needed for pain PERCOCET 5-325 MG TABS one to two tablet s by mouth four times daily as needed for pain OXYCODONE-ACETAMINOPHEN [id number] Natacha Alfred LPN Start: 10-29-2014 take 1-2 tablets by mouth four times daily as needed for pain PERCOCET 5-325 MG TABS one to two tablet s by mouth four times daily as needed for pain OXYCODONE-ACETAMINOPHEN [id number] Pierce Pemberton MD Start: 10-21-2014 End: 03-07-2017 take 1-2 tablets by mouth four times daily as needed for pain PERCOCET 7.5-325 MG TABS one to two tablets by mouth four times daily as needed for pain OXYCODONE-ACETAMINOPHEN [id number] Natacha Alfred LPN Start: 10-21-2014 End: 03-07-2017 take 1-2 tablets by mouth four times daily as needed for pain PERCOCET 7.5-325 MG TABS one to two tablets by mouth four times daily as needed for MODERATE pain OXYCODONE-ACETAMINOPHEN [id number] Natacha Alfred LPN Start: 10-21-2014 take 1-2 tablets by mouth four times daily as needed for pain PERCOCET 7.5-325 MG TABS one to two tablets by mouth four times daily as needed for MODERATE pain OXYCODONE-ACETAMINOPHEN [id number] Pierce Pemberton MD Start: 07-29-2014 End: 03-07-2017 take 1-2 tablets by mouth four times daily as needed for pain PERCOCET 5-325 MG TABS one to two tablet s by mouth four times daily as needed for pain OXYCODONE-ACETAMINOPHEN [id number] Natacha Alfred LPN Start: 07-29-2014 take 1-2 tablets by mouth four times daily as needed for pain PERCOCET 5-325 MG TABS one to two tablet s by mouth four times daily as needed for pain OXYCODONE-ACETAMINOPHEN [id number] Pierce Pemberton MD Start: 07-22-2014 End: 07-12-2015 take 1-2 tablets by mouth four times daily as needed for pain PERCOCET 5-325 MG TABS one to two tablet s by mouth four times daily as needed for pain OXYCODONE-ACETAMINOPHEN [id number] Natacha Alfred LPN Start: 07-22-2014 take 1-2 tablets by mouth four times daily as needed for pain PERCOCET 5-325 MG TABS one to two tablet s by mouth four times daily as needed for pain OXYCODONE-ACETAMINOPHEN [id number] Pierce Pemberton MD Start: 07-14-2014 take 1 tablet by greg th four times daily as needed for pain PERCOCET 5-325 MG TABS One tablet by mouth four times daily as needed for pain OXYCODONE-ACETAMINOPHEN [id number] Pierce Pemberton MD Start: 07-14-2014 End: 07-12-2015 take 1 tablet by mouth four times daily as needed for pain PERCOCET 5-325 MG TABS One tablet by mouth four times daily as needed for pain OXYCODONE-ACETAMINOPHEN [id number] Natacha Alfred LPN Start: 06-01-2013 End: 07-12-2013 Oxycodone-Acetaminophen 1 TA BLET tablet Discontinued 1 {tbl} PO EVERY 6 HOURS NEEDED as needed for Pain July 02, 2013 1:00am July 12, 2013 3:50pm Start: 06-01-2013 End: 07-12-2013 take 1 tablet by mouth every six hours as needed Oxycodone-Acetaminophen Discontinued 1 TABLET PO EVERY 6 HOURS NEEDED July 02, 2013 1:00am July 12, 2013 3:50pm Start: 08-27-2012 take 1-2 tablets by mouth four times daily as needed for pain PERCOCET 5-325 MG TABS one to two tablet s by mouth four times daily as needed for pain OXYCODONE-ACETAMINOPHEN [id number] Pierce Pemberton MD Start: 08-27-2012 End: 08-26-2013 take 1-2 tablets by mouth four times daily as needed for pain PERCOCET 5-325 MG TABS one to two tablet s by mouth four times daily as needed for pain OXYCODONE-ACETAMINOPHEN [id number] Pierce Pemberton MD Start: 03-14-2012 End: 03-07-2017 take 1-2 tablets by mouth four times daily as needed for pain PERCOCET 5-325 MG TABS one to two tablet s by mouth four times daily as needed for pain OXYCODONE-ACETAMINOPHEN [id number] Natacha Alfred BRE Start: 03-14-2012 take 1-2 tablets by mouth four times daily as needed for pain PERCOCET 5-325 MG TABS one to two tablet s by mouth four times daily as needed for pain OXYCODONE-ACETAMINOPHEN [id number] Pierce Pemberton MD Start: 03-14-2012 End: 08-27-2012 take 1-2 tablets by mouth four times daily as needed for pain PERCOCET 5-325 MG TABS one to two tablet s by mouth four times daily as needed for pain OXYCODONE-ACETAMINOPHEN [id number] Pierce Pemberton MD End: 08-27-2012 PERCOCET 5-325 MG TABS One t ablet by mouth six times daily, as needed OXYCODONE-ACETAMINOPHEN [id number] Austin Bello PERCOCET 5-325 M G TABS One tablet by mouth six times daily, as needed OXYCODONE-ACETAMINOPHEN [id number] Austin Bello DO End: 08-27-2012 PERCOCET 5-325 MG TABS One t ablet by mouth six times daily, as needed OXYCODONE-ACETAMINOPHEN [id number] Pierce Pemberton MD apple cider vinegar 500 mg oral tablet (3 sources) Start: 02-09-2021 End: 04-14-2024 take 1 tablet by mouth once daily Apple Cider Vinegar 500 mg Tablet Discontinued 500 mg PO DAILY February 09, 2021 12:00am April 14, 2024 12:51am cephalexin 500 mg oral capsule (3 sources) Cephalosporin Antibacterial Start: 07-02-2013 End: 07-12-2013 take 1 capsule by mouth every eight hours Cephalexin (Keflex) 500 MG capsule Discontinued 500 mg PO EVERY 8 HOURS July 02, 2013 1:00am July 12, 2013 3:51pm cinnamon bark 500 mg oral capsule (3 sources) Start: 02-09-2021 End: 04-14-2024 take 1 capsule by mouth once daily Cinnamon Bark (Cinnamon) 500 mg Capsule Discontinued 500 mg PO DAILY February 09, 2021 12:00am April 14, 2024 12:51am ciprofloxacin 750 mg oral tablet (13 sources) Quinolone Antimicrobial Start: 07-29-2014 End: 03-07-2017 take 1 tablet by mouth twice daily CIPROFLOXACIN HCL 750 MG TABS One tablet by mouth twice daily CIPROFLOXACIN HCL [id number] Natacha Alfred LPN clindamycin 300 mg oral capsule (20 sources) Lincosamide Antibacterial Start: 07-17-2014 End: 07-12-2015 take 1 capsule by mouth three times daily Clindamycin Hcl (Cleocin Hcl) 300 MG capsule Discontinued 300 mg PO THREE TIMES A DAY July 22, 2014 2:30pm August 13, 2014 6:41pm Start: 07-02-2013 End: 07-12-2013 take 2 capsules by mouth four times daily Clindamycin Hcl 150 MG capsule Discontinued 300 mg PO 4 TIMES DAILY July 02, 2013 1:00am July 12, 2013 3:51pm Start: 07-02-2013 End: 07-12-2013 take 300 mg by mouth four times daily Clindamycin Hcl Discontinued 300 MG PO 4 TIMES DAILY July 02, 2013 1:00am July 12, 2013 3:51pm Start: 05-15-2013 End: 06-01-2013 take 3 capsules by mouth three times daily Clindamycin Hcl 150 MG capsule Discontinued 450 mg PO THREE TIMES A DAY May 15, 2013 1:00am June 01, 2013 9:14pm Start: 05-15-2013 End: 06-01-2013 take 450 mg by mouth three times daily Clindamycin Hcl Discontinued 450 MG PO THREE TIMES A DAY May 15, 2013 1:00am June 01, 2013 9:14pm End: 08-27-2012 CLEOCIN-T 1 % LOTN apply twi ce daily CLINDAMYCIN PHOSPHATE [id number] Austin Bello DO End: 07-12-2015 CLINDAMYCIN HCL CAPS CLINDAM YCIN HCL CAPS [id number] Natacha Alfred LPN CLINDAMYCIN HCL CAPS CLINDAMYCIN HCL CAPS [id number] Natacha Alfred LPN End: 08-27-2012 CLEOCIN-T 1 % LOTN apply twi ce daily CLINDAMYCIN PHOSPHATE [id number] Pierce Pemberton MD CLEOCIN-T 1 % LO TN apply twice daily CLINDAMYCIN PHOSPHATE [id number] Austin Bello DO diazePAM 5 mg oral tablet (13 sources) Benzodiazepine Start: 07-29-2014 End: 03-07-2017 take 1 tablet by mouth four times daily as needed for muscle spasms VALIUM 5 MG TABS One tablet by mouth four times daily as needed for spasm DIAZEPAM [id number] Pierce Pemberton MD docusate sodium 100 mg oral capsule (20 sources) Start: 09-24-2019 End: 01-25-2021 take 1 capsule by mouth once daily Docusate Sodium 100 MG capsule Discontinued 100 mg PO DAILY September 24, 2019 12:00am January 25, 2021 3:47pm Start: 10-21-2014 End: 03-07-2017 take 1 tablet by mouth twice daily COLACE 100 MG CAPS One tablet by mouth twice daily DOCUSATE SODIUM [id number] Natacha Alfred LPN Start: 10-21-2014 End: 03-07-2017 take 1 tablet by mouth twice daily COLACE 100 MG CAPS One tablet by mouth twice daily DOCUSATE SODIUM [id number] Natacha Marrufoon DIRECTOR SALES SUPPORT take 2 tablets by mo [facility] once daily DOC-Q-LACE LIQD Two tablets by mouth daily DOCUSATE SODIUM LIQD [id number] Austin Bello DO End: 08-27-2012 take 2 tablets by mouth once daily DOC-Q-LACE LIQD Two tablets by mouth daily DOCUSATE SODIUM LIQD [id number] Pierce Pemberton MD DOCUSATE SODIUM LIQD (6 sources) End: 08-27-2012 take 2 tablets by mouth once daily DOC-Q-LACE LIQD Two tablets by mouth daily DOCUSATE SODIUM LIQD [id number] Pierce Pemberton MD take 2 tablets by mouth once john ly DOC-Q-LACE LIQD Two tablets by mouth daily DOCUSATE SODIUM LIQD [id number] Austin Bello DO ferrous sulfate 325 mg delayed release oral tablet (3 sources) Start: 02-09-2021 End: 04-14-2024 take 1 tablet by mouth once daily Ferrous Sulfate 325 mg (65 mg iron) Tablet,Delayed Release (Dr/Ec) Discontinued 325 mg PO DAILY February 09, 2021 12:00am April 14, 2024 12:51am fluconazole 100 mg oral tablet (20 sources) Azole Antifungal Start: 10-21-2014 End: 03-07-2017 take 1 tablet by mouth once daily DIFLUCAN 100 MG TABS One tablet by mouth daily FLUCONAZOLE [id number] Natacha Alfred LPN Start: 06-01-2013 End: 07-12-2013 take 1 tablet by mouth once Fluconazole (Diflucan) 150 MG tablet Discontinued 150 mg PO ONE TIME June 01, 2013 1:00am July 12, 2013 3:51pm gabapentin 600 mg oral tablet (20 sources) Anti-epileptic Agent Start: 08-26-2013 take 2 tablets by mouth once daily NEURONTIN 600 MG TABS Two tablets by mouth daily GABAPENTIN [id number] Pierce Pemberton MD End: 08-27-2012 take 1 tablet by mouth once daily GABAPENTIN 600 MG TABS One tablet by mouth daily GABAPENTIN [id number] Pierce Pemberton MD End: 07-12-2015 GABAPENTIN CAPS GABAPENTIN C APS [id number] Natacha Alfred LPN GABAPENTIN CAPS GABAPENTIN CAPS [id number] Natacha Alfred LPN HYDROmorphone hydrochloride 2 mg oral tablet (20 sources) Opioid Agonist Start: 03-29-2012 End: 03-07-2017 take 1-2 tablets by mouth four times daily as needed for pain DILAUDID 2 MG TABS one to two tablets by mouth four times daily as needed for pain HYDROMORPHONE HCL [id number] Pierce Pemberton MD INSULIN DETEMIR SOLN (7 sources) Insulin Analogue LEVEMIR FLEXPEN SOPN INSULIN DETEMIR SOLN [id number] Austin D Bello DO LEVEMIR FLEXPEN SOLN INSULIN DETEMIR SOLN [id number] Austin D Bello DO 3 ml insulin lispro 100 unt/ml pen injector (14 sources) Insulin Analogue End: 08-27-2012 HUMALOG KWIKPEN SOLN INSULIN LISPRO (HUMAN) SOLN [id number] Pierce Pemberton MD HUMALOG KWIKPEN SOLN INSULIN LISPRO (HUMAN) SOLN [id number] Austin Bello DO End: 08-27-2012 CARMEN BARRAGAN SOLN INSULIN LISPRO (HUMAN) SOLN [id number] Pierce Pemberton MD lactobacillus (14 sources) Start: 07-22-2014 End: 07-12-2015 take 1 tablet by mouth twice daily ACIDOPHILUS PROBIOTIC TABS One tablet by mouth twice daily LACTOBACILLUS [id number] Natacha L Alfred DIRECTOR SALES SUPPORT Start: 07-22-2014 take 1 tablet by greg th twice daily ACIDOPHILUS PROBIOTIC TABS One tablet by mouth twice daily LACTOBACILLUS [id number] Pierce Pemberton MD Start: 07-22-2014 End: 07-12-2015 take 1 tablet by mouth twice daily ACIDOPHILUS PROBIOTIC TABS One tablet by mouth twice daily LACTOBACILLUS [id number] Natacha L Alfred DIRECTOR SALES SUPPORT Start: 07-22-2014 take 1 tablet by greg th twice daily ACIDOPHILUS PROBIOTIC TABS One tablet by mouth twice daily LACTOBACILLUS [id number] Pierce Pemberton MD levoFLOXacin 500 mg oral tablet (13 sources) Quinolone Antimicrobial Start: 10-21-2014 End: 03-07-2017 take 1 tablet by mouth once daily LEVAQUIN 500 MG TABS One tablet by mouth daily LEVOFLOXACIN [id number] Natacha Alfred DIRECTOR SALES SUPPORT metroNIDAZOLE 500 mg oral tablet (20 sources) Nitroimidazole Antimicrobial Start: 03-28-2012 End: 07-12-2015 take 1 tablet by mouth three times daily FLAGYL 500 MG TABS One tablet by mouth three times daily METRONIDAZOLE [id number] Pierce Pemberton MD minocycline 100 mg oral tablet (14 sources) Tetracycline-class Drug Start: 07-24-2014 End: 07-12-2015 take 1 tablet by mouth twice daily MINOCYCLINE HCL 100 MG TABS One tablet by mouth twice daily MINOCYCLINE HCL [id number] Pierce Pemberton MD naproxen 500 mg oral tablet (9 sources) Nonsteroidal Anti-inflammatory Drug Start: 06-26-2022 End: 04-14-2024 take 1 tablet by mouth twice daily Naproxen 500 mg tablet Discontinued 500 mg PO TWICE A DAY June 26, 2022 1:00am April 14, 2024 12:51am Start: 09-24-2019 End: 01-25-2021 take 1 tablet by mouth twice daily as needed Naproxen 500 MG tablet Discontinued 500 mg PO TWICE DAILY NEEDED September 24, 2019 12:00am January 25, 2021 3:48pm Start: 04-21-2013 End: 07-12-2013 take 1 tablet by mouth twice daily Naproxen (Naprosyn) 500 MG tablet Discontinued 500 mg PO TWICE A DAY April 21, 2013 12:00am July 12, 2013 3:50pm ondansetron 4 mg disintegrating oral tablet (3 sources) Serotonin-3 Receptor Antagonist Start: 04-21-2013 End: 05-15-2013 take 1 tablet by mouth every eight hours as needed for nausea Ondansetron 4 MG tablet Discontinued 4 mg PO EVERY 8 HOURS NEEDED as needed for Nausea April 21, 2013 12:00am May 15, 2013 1:37pm oxyCODONE hydrochloride 5 mg oral tablet (3 sources) Opioid Agonist Start: 07-17-2014 End: 07-22-2014 take 1 tablet by mouth four times daily Oxycodone 5 MG tablet Discontinued 5 mg PO 4 TIMES DAILY July 17, 2014 1:00am July 22, 2014 2:30pm penicillin v potassium 500 mg oral tablet (3 sources) Start: 09-24-2019 End: 01-25-2021 take 1 tablet by mouth four times daily Penicillin V Potassium 500 MG tablet Discontinued 500 mg PO 4 TIMES DAILY September 24, 2019 12:00am January 25, 2021 3:48pm promethazine hydrochloride 25 mg oral tablet (20 sources) Phenothiazine Start: 07-22-2014 End: 03-07-2017 take 1 tablet by mouth four times daily as needed for nausea PROMETHAZINE HCL 25 MG TABS One tablet by mouth four times daily as needed for nausea PROMETHAZINE HCL [id number] Natacha Alfred LPN vitamin B12 (3 sources) Vitamin B12 Start: 02-09-2021 End: 04-14-2024 take 2 tablets by mouth once daily Cyanocobalamin (Vitamin B-12) (Vitamin B-12) 25 mcg Tablet Discontinued 50 ug PO DAILY February 09, 2021 12:00am April 14, 2024 12:51am Start: 02-09-2021 take 2 tablets by mo [facility] once daily Cyanocobalamin (Vitamin B-12) (Vitamin B-12) 25 mcg Tablet Active 50 MCG PO DAILY February 09, 2021 12:00am Start: 02-09-2021 take 2 tablets by mo [facility] once daily Cyanocobalamin (Vitamin B-12) (Vitamin B-12) 25 mcg Tablet Active 50 MCG PO DAILY February 08, 2021 11:00pm Problems Active Problems Problem Classification Problem Date Documented Date Episodic/Chronic Bacterial infection (13 sources) Other staphylococcus as the cause of diseases classified elsewhere; Translations: [History of methicillin resistant Staphylococcus aureus infection] Onset: 07-29-2014 08-05-2014 Episodic Cardiac dysrhythmias (1 source) Sinus tachycardia; Translations: [Tachycardia, unspecified] 12-29-2022 Episodic Diabetes mellitus with complications (17 sources) Disorder due to type 2 diabetes mellitus; Translations: [Type 2 diabetes mellitus] Onset: 08-26-2013 08-29-2013 Chronic Diabetes mellitus without complication (4 sources) Type 2 diabetes mellitus; Translations: [Type 2 diabetes mellitus without complications] 01-27-2021 Chronic Essential hypertension (4 sources) Benign hypertension; Translations: [Essential (primary) hypertension] 07-16-2017 Chronic Inflammatory diseases of female pelvic organs (3 sources) Vaginitis; Translations: [Acute vaginitis] 07-16-2017 Episodic Menstrual disorders (1 source) Missed period; Translations: [Irregular menstruation, unspecified] Chronic Mood disorders (3 sources) Mood disorder; Translations: [Unspecified mood [affective] disorder] Onset: 05-23-2024 05-23-2024 Chronic Osteoarthritis (3 sources) Arthritis; Translations: [Unspecified osteoarthritis, unspecified site] 02-09-2021 Chronic Comment on above: BACK Other circulatory disease (1 source) Elevated blood-pressure reading without diagnosis of hypertension; Translations: [Elevated blood-pressure reading, without diagnosis of hypertension] 05-23-2024 Episodic Other connective tissue disease (1 source) Thigh pain; Translations: [Pain in left thigh] 12-29-2022 Episodic Other connective tissue disease (1 source) Neuralgia; Translations: [Neuralgia and neuritis, unspecified] 12-29-2022 Episodic Other connective tissue disease (1 source) Other muscle spasm; Translations: [Other muscle spasm] Onset: 09-29-2024 Episodic Other infections; including parasitic (2 sources) Disorder due to infection; Translations: [Unspecified infectious disease] 07-16-2017 Episodic Other infections; including parasitic (1 source) Recurrent infectious disease; Translations: [Unspecified infectious disease] 04-10-2015 Episodic Other nervous system disorders (8 sources) Brachial plexus disorder; Translations: [Brachial plexus disorders] Onset: 06-04-2013 06-04-2013 Chronic Other nervous system disorders (1 source) Chronic pain; Translations: [Other chronic pain] 04-22-2024 Chronic Other nervous system disorders (1 source) Other chronic pain; Translations: [Other chronic pain] Onset: 08-06-2024 Chronic Other non-traumatic joint disorders (1 source) Pain in left shoulder; Translations: [Pain in left shoulder] Onset: 08-01-2018 Episodic Other nutritional; endocrine; and metabolic disorders (3 sources) Obesity; Translations: [Obesity, unspecified] 07-16-2017 Chronic Other nutritional; endocrine; and metabolic disorders (1 source) H/O: diabetes mellitus; Translations: [Personal history of other endocrine, nutritional and metabolic disease] 04-22-2024 Episodic Other skin disorders (6 sources) Hidradenitis; Translations: [Hidradenitis suppurativa] Onset: 07-12-2015 10-10-2015 Episodic Other skin disorders (6 sources) Axillary hidradenitis suppurativa; Translations: [Hidradenitis suppurativa] 01-27-2021 Episodic Residual codes; unclassified (1 source) Needs assistance with community resources; Translations: [Other specified health status] 06-02-2024 Episodic Residual codes; unclassified (1 source) Pain, unspecified; Translations: [Pain, unspecified] Onset: 08-01-2018 Screening or history of mental health and substance abuse (17 sources) Smoker; Translations: [Nicotine dependence, unspecified, uncomplicated] Onset: 08-27-2012 08-30-2012 Chronic Spondylosis; intervertebral disc disorders; other back problems (3 sources) Low back pain; Translations: [Low back pain] 07-04-2022 Episodic Sprains and strains (3 sources) Low back strain; Translations: [Strain of muscle, fascia and tendon of lower back, initial encounter] 04-30-2019 Episodic Substance-related disorders (19 sources) Tobacco user; Translations: [Nicotine dependence, unspecified, uncomplicated] Onset: 12-14-2016 12-14-2016 Chronic Superficial injury; contusion (3 sources) Contusion of lower back; Translations: [Contusion of lower back and pelvis, initial encounter] 04-29-2019 Episodic Unclassified (7 sources) Aftercare ; Translations: [Encounter for other specified surgical aftercare] Onset: 08-26-2013 08-29-2013 Unclassified (3 sources) nonhealing ulcer left axillary area 07-16-2017 Comment on above: from excision of hid radenitishad MRSA infection Urinary tract infections (1 source) Urinary tract infectious disease; Translations: [Urinary tract infection, site not specified] 09-23-2024 Episodic Viral infection (3 sources) Genital herpes simplex; Translations: [Herpesviral infection of urogenital system, unspecified] 07-16-2017 Chronic Past or Other Problems Problem Classification Problem Date Documented Date Episodic/Chronic Open wounds of extremities (7 sources) Laceration with foreign body of unspecified shoulder, initial encounter; Translations: [Laceration with foreign body of unspecified shoulder, initial encounter] Onset: 10-21-2014 10-28-2014 Episodic Open wounds of head; neck; and trunk (11 sources) Laceration of abdominal wall with foreign body, unspecified quadrant without penetration into peritoneal cavity, initial encounter; Translations: [Late effect of open wound of head, neck AND/OR trunk] Onset: 07-22-2014 07-24-2014 Episodic Other circulatory disease (1 source) Elevated blood-pressure reading, without diagnosis of hypertension; Translations: [Elevated blood pressure reading without diagnosis of hypertension] Onset: 05-23-2024 Episodic Other connective tissue disease (8 sources) Neuropathic pain; Translations: [Neuralgia and neuritis, unspecified] Onset: 06-04-2013 06-04-2013 Episodic Other infections (7 sources) H/O: infectious disease; Translations: [Personal history of Methicillin resistant Staphylococcus aureus infection] Onset: 07-12-2015 10-10-2015 Episodic Other injuries and conditions due to external causes (3 sources) Late effect of open wound of head, neck AND/OR trunk; Translations: [Other specified effects of external causes, sequela] Onset: 07-12-2015 07-27-2015 Episodic Other non-traumatic joint disorders (8 sources) Shoulder joint pain; Translations: [Pain in left shoulder] Onset: 09-05-2018 09-05-2018 Episodic Other screening for suspected conditions (not mental disorders or infectious disease) (10 sources) Patient encounter status; Translations: [Encounter for screening for lipoid disorders] Onset: 10-14-2019 Episodic Other skin disorders (20 sources) Hidradenitis suppurativa; Translations: [Hidradenitis] Onset: 03-14-2012 04-27-2012 Episodic Other skin disorders (3 sources) H/O: skin disorder; Translations: [Personal history of diseases of the skin and subcutaneous tissue] Onset: 07-12-2015 07-27-2015 Episodic Other skin disorders (11 sources) Hidradenitis suppurativa; Translations: [Hidradenitis suppurativa] Onset: 10-26-2013 06-08-2011 Episodic Residual codes; unclassified (8 sources) Positive measurement finding; Translations: [HPV test positive] Onset: 07-16-2014 07-16-2014 Episodic Skin and subcutaneous tissue infections (11 sources) Pilonidal cyst with abscess; Translations: [Pilonidal cyst with abscess] Onset: 03-15-2010 03-15-2010 Episodic Unclassified (5 sources) NO SHOW Onset: 05-01-2013 Resolved: 07-06-2014 07-06-2014 Results Test Name Value Interpretation Reference Range Facility Urine Cultureon 09-26-2024 [facility] Presumptive E. coli [place] Count >100,000 Presumptive E. coli: REACTION Ampicillin Islt FLORINDA <=2 Ampicillin+Sulbac Islt FLORINDA <=2 S Cefepime Islt FLORINDA <=0.12 S cefTRIAXone Islt FLORINDA <=0.25 S Ciprofloxacin Islt FLORINDA 1 R B-Lactamase Extended Susc Islt NEG Gentamicin Islt FLORINDA <=1 S levoFLOXacin Islt FLORINDA 1 I Meropenem Islt FLORINDA <=0.25 S Nitrofurantoin Islt FLORINDA <=16 S Pip+Tazo Islt FLORINDA <=4 S TMP SMX Islt FLORINDA <=20 S Normal [facility] Comment on above: Performed By: #### M [id number] #### [facility] [address] [place], [address] Absolute neutrophil countOrd ered By: Jose Garza on 09-23-2024 Neutrophils (Bld) [#/Vol] 3.5 10*3/uL 2.0-7.7 [facility] Anion gap in Serum or Plasma Ordered By: Jose Garza on 09-23-2024 Anion gap [Moles/Vol] 9 mmol/L - [facility] BUN/creatinine ratioOrdered By: Jose Garza on 09-23-2024 Urea nitrogen/Creatinine [Mass ratio] 12.2 mg/mg 10- [facility] Basophil percentageOrdered B y: Jose Garza on 09-23-2024 Basophils/100 WBC (Bld) 1.1 % High 0-1 [facility] Bilirubin Test strip Ql (U)O rdered By: Jose Garza on 09-23-2024 Bilirubin Ql (U) Negative Negative [facility] Bilirubin, totalOrdered By: Jose Garza on 09-23-2024 Bilirubin [Mass/Vol] mg/dL 0.00-1.30 [facility] CBC W/Diff, Automatedon 08-31 Absolute Lymph 2.36 X10 3/uL Normal 0.83-4.51 [facility] Comment on above: Performed By: #### L 500.4050, L100.0100, L501.5200 #### [facility] [address] [place], [address] Absolute Neut 3.5 X10 3/uL Normal 2.0-7.7 [facility] Comment on above: Performed By: #### L 500.4050, L100.0100, L501.5200 #### [facility] [address] [place], [address] Basophils/100 WBC (Bld) 1.1 % High 0-1 [facility] Comment on above: Performed By: #### L 500.4050, L100.0100, L501.5200 #### [facility] [address] [place], [address] Eosinophils/100 WBC (Bld) 2.9 % Normal 0-5 [facility] Comment on above: Performed By: #### L 500.4050, L100.0100, L501.5200 #### [facility] [address] [place], [address] Erythrocyte distribution width (RBC) [Ratio] 12.0 % Normal 11.6-14.6 [facility] Comment on above: Performed By: #### L 500.4050, L100.0100, L501.5200 #### [facility] [address] [place], [address] Hematocrit (Bld) [Volume fraction] 38.8 % Normal 37-47 [facility] Comment on above: Performed By: #### L 500.4050, L100.0100, L501.5200 #### [facility] [address] [place], [address] Hemoglobin (Bld) [Mass/Vol] 13.5 g/dL Normal 12.0-15.0 [facility] Comment on above: Performed By: #### L 500.4050, L100.0100, L501.5200 #### [facility] [address] [place], [address] IG% 0.300 Normal 0.0-0.9 [facility] Comment on above: Result Comment: IG% - Immature Granulocytes (promyelocytes, myelocytes and metamyelocytes) > 1% indicates that a LEFT SHIFT is Present. Performed By: #### L 500.4050, L100.0100, L501.5200 #### [facility] [address] [place], [address] Lymphocytes/100 WBC (Bld) 35.8 % Normal 19-41 [facility] Comment on above: Performed By: #### L 500.4050, L100.0100, L501.5200 #### [facility] [address] [place] [place], [address] MCH (RBC) [Entitic mass] 29.8 pg Normal 27.0-32.0 [facility] Comment on above: Performed By: #### L 500.4050, L100.0100, L501.5200 #### [facility] [address] [place], [address] MCHC (RBC) [Mass/Vol] 34.8 g/dL Normal 32-36 [facility] Comment on above: Performed By: #### L 500.4050, L100.0100, L501.5200 #### [facility] [address] [place], [address] MCV (RBC) [Entitic vol] 85.7 fL Normal 81-99 [facility] Comment on above: Performed By: #### L 500.4050, L100.0100, L501.5200 #### [facility] [address] [place], [address] Monocytes/100 WBC (Bld) 6.8 % Normal 0-10 [facility] Comment on above: Performed By: #### L 500.4050, L100.0100, L501.5200 #### [facility] [address] [place], [address] Neutrophils/100 WBC (Bld) 53.1 % Normal 47-70 [facility] Comment on above: Performed By: #### L 500.4050, L100.0100, L501.5200 #### [facility] [address] [place] [place], [address] Nucleated RBC (Bld) [#/Vol] 0 10*3/uL Normal 0-5 [facility] Comment on above: Performed By: #### L 500.4050, L100.0100, L501.5200 #### [facility] [address] [place], [address] Platelet mean volume (Bld) [Entitic vol] 11.0 fL Normal 6.2-12.0 [facility] Comment on above: Performed By: #### L 500.4050, L100.0100, L501.5200 #### [facility] [address] [place], [address] Platelets (Bld) [#/Vol] 285 10*3/uL Normal 150-450 [facility] Comment on above: Performed By: #### L 500.4050, L100.0100, L501.5200 #### [facility] [address] [place], [address] RBC (Bld) [#/Vol] 4.53 10*6/uL Normal 4.2-5.4 [facility] Comment on above: Performed By: #### L 500.4050, L100.0100, L501.5200 #### [facility] [address] [place], [address] RDW SD 37.6 fl Normal 35.1-43.9 [facility] Comment on above: Performed By: #### L 500.4050, L100.0100, L501.5200 #### [facility] [address] [place], [address] WBC (Bld) [#/Vol] 6.6 10*3/uL Normal 4.4-11.0 [facility] Comment on above: Performed By: #### L 500.4050, L100.0100, L501.5200 #### [facility] [address] [place], [address] Carbon dioxide, total [Moles /volume] in Central venous bloodOrdered By: Jose Garza on 09-23-2024 CO2 [Moles/Vol] 24.2 mmol/L 21.0-32.0 [facility] Chloride assayOrdered By: Yadira Garza on 03-25-2025 Chloride [Moles/Vol] 99 mmol/L 98-108 [facility] Comprehensive Metabolic Prof ilon 09-23-2024 Albumin [Mass/Vol] 2.2 g/dL Low 3.5-5.0 [facility] Comment on above: Performed By: #### L 500.4050, L100.0100, L501.5200 #### [facility] [address] [place], [address] Albumin/Globulin [Mass ratio] 0.7 {ratio} Low 0.9-2.4 [facility] Comment on above: Performed By: #### L 500.4050, L100.0100, L501.5200 #### [facility] [address] [place], [address] ALK PHOS 73 U/L Normal 35-104 [facility] Comment on above: Performed By: #### L 500.4050, L100.0100, L501.5200 #### [facility] [address] [place], [address] ALT [Catalytic activity/Vol] 15 U/L Normal <=34 [facility] Comment on above: Performed By: #### L 500.4050, L100.0100, L501.5200 #### [facility] [address] [place], [address] AST [Catalytic activity/Vol] 21 U/L Normal <=31 [facility] Comment on above: Result Comment: Hemo lysis present, Results??could be affected. ?? Performed By: #### L 500.4050, L100.0100, L501.5200 #### [facility] [address] [place], [address] BUN/CRE 12.2 RATIO Normal 10-20 [facility] Comment on above: Performed By: #### L 500.4050, L100.0100, L501.5200 #### [facility] [address] [place], [address] Calcium [Mass/Vol] 8.1 mg/dL Normal 7.6-11.0 [facility] Comment on above: Performed By: #### L 500.4050, L100.0100, L501.5200 #### [facility] [address] [place], [address] Chloride [Moles/Vol] 99 mmol/L Normal 98-108 [facility] Comment on above: Performed By: #### L 500.4050, L100.0100, L501.5200 #### [facility] [address] [place], [address] CO2 [Moles/Vol] 24.2 mmol/L Normal 21.0-32.0 [facility] Comment on above: Performed By: #### L 500.4050, L100.0100, L501.5200 #### [facility] [address] [place] [place], [address] Creatinine [Mass/Vol] 0.95 mg/dL Normal 0.70-1.20 [facility] Comment on above: Performed By: #### L 500.4050, L100.0100, L501.5200 #### [facility] [address] [place], [address] ECRCL 70.64 ml/min Normal 50-250 [facility] Comment on above: Performed By: #### L 500.4050, L100.0100, L501.5200 #### [facility] [address] [place], [address] GAP 9 Normal 5-15 [facility] Comment on above: Performed By: #### L 500.4050, L100.0100, L501.5200 #### [facility] [address] [place], [address] GFR/1.73 sq M.predicted among non-blacks MDRD (S/P/Bld) [Vol rate/Area] 75 mL/min/{1.73_m2} Normal >60 [facility] Comment on above: Result Comment: mL/m in/1.73m2 CKD-EPI Creatinine Equation (2020) Performed By: #### L 500.4050, L100.0100, L501.5200 #### [facility] [address] [place], [address] Globulin (S) [Mass/Vol] 3.3 g/dL Normal 2.2-4.2 [facility] Comment on above: Performed By: #### L 500.4050, L100.0100, L501.5200 #### [facility] [address] [place], [address] Glucose [Mass/Vol] 415 mg/dL High 70-99 [facility] Comment on above: Performed By: #### L 500.4050, L100.0100, L501.5200 #### [facility] [address] [place], [address] Potassium [Moles/Vol] 3.6 mmol/L Normal 3.3-5.1 [facility] Comment on above: Result Comment: Hemo lysis present, Results??could be affected. ?? Performed By: #### L 500.4050, L100.0100, L501.5200 #### [facility] [address] [place], [address] Sodium [Moles/Vol] 132 mmol/L Low 133-145 [facility] Comment on above: Performed By: #### L 500.4050, L100.0100, L501.5200 #### [facility] [address] [place], [address] T BILI < 0.15 Normal 0.00-1.30 [facility] Comment on above: Performed By: #### L 500.4050, L100.0100, L501.5200 #### [facility] [address] [place], [address] T PROT 5.6 g/dL Low 5.9-8.4 [facility] Comment on above: Performed By: #### L 500.4050, L100.0100, L501.5200 #### [facility] [address] [place], [address] Urea nitrogen [Mass/Vol] 12 mg/dL Normal 4-19 [facility] Comment on above: Performed By: #### L 500.4050, L100.0100, L501.5200 #### [facility] [address] [place], [address] Emergency Department Summary on 09-23-2024 Emergency Department Summary [facility] Medical Records Department [address] [facility] [place] [address] Emergency Department Summary 09/23/24 MR#: [id number] Acct: [id number] Name: MINDY FAULKNER Rep #: [id number] : 1980 44 From: Jose Garza DO PCP: Care Physician,No Primary Status:REG ER Location: ED HPI History of Present Illness Chief Complaint: Lower Extremity Injury Detail of Chief Complaint: Leg spasms Informant: patient Narrative Narrative: Patient presents to the emergency room with complaint of leg spasms that started about 2 weeks ago or so. Usually worse at night. Describes the spasms as in her groin bilaterally. Spasm into her upper thighs. Does not involve the lower extremities. She has noticed some swelling in both lower extremities. Patient states that she has a history of hidradenitis suppurativa for which she has had surgery for. Patient describes and cloudy urine. No dysuria urgency or frequency. She no shortness of breath. She denies recent travel or surgery. No history of PE or DVT. Does not see a primary care physician. [facility] Medical History Wears dentures Wears glasses Anxiety Diabetes Kidney stones Anemia Back pain Injury of back Migraine headache Injury of head and neck Loss of consciousness Gastric reflux Smoker Leg cramps History of pain when walking History of edema Hx of hidradenitis suppurativa Personal history of Methicillin resistant Staphylococcus aureus infection Right axillary hidradenitis Arthritis Smoker DM type 2 (diabetes mellitus, type 2) Home Medications ???Medication ???Instructions ???Recorded ???Last Taken ???Type amlodipine 5 mg tablet (Norvasc) 5 mg PO DAILY #30 tabs 09/23/24 Un known Rx metformin 850 mg tablet 850 mg PO DAILY #30 tabs 09/23/24 Unknown Rx sulfamethoxazole 800 1 tab PO BID #14 tabs 09/23/24 Unk nown Rx mg-trimethoprim 160 mg tablet (Bactrim DS) Allergy/AdvReac Type Severity Reaction Status Date / Time hydrocodone bitartrate (From AdvReac Vomiting Verified 09/23/24 13:04 Vicodin) hydromorphone HCl (From [facility] Other Verified 09/23/24 13:04 Dilaudid) tramadol [facility] Other Verified 09/23/24 13:04 Family History Other Diabetes Surgical History Hx of tooth extraction History of cystoscopy Hidradenitis Social History household members: none Smoking Status: Current every day smoker tobacco type: cigarettes second hand exposure: Yes alcohol intake: former substance use type: marijuana additional social history: Does Not Take Aspirin Does Take Ibuprofen As Needed ROS ROS ED Review of Systems ROS Unobtainable: other Constitutional Constitutional ED: Reports lethargy; Denies chills, fever(s), sweats or weight loss Eyes Eyes: Denies blurry vision, change in vision or diplopia ENT ENT ED: Denies rhinorrhea or sore throat Cardiovascular Cardiovascular: Denies chest pain, orthopnea or racing heartbeat Respiratory/Chest Respiratory/Chest: Denies cough, dyspnea, dyspnea on exertion, orthopnea or sputum Gastrointestinal Gastrointestinal: Denies abdominal pain, diarrhea, nausea or vomiting Genitourinary Genitourinary ED: Denies dysuria, hematuria or urinary frequency Musculoskeletal Musculoskeletal: Reports other Details: Bilateral leg edema, leg spasms ; Denies arthralgias, back pain, myalgias or neck pain Integumentary Denies abscess, Abrasions or rash Neurologic Neurologic: Denies headache(s) or weakness Psychiatric Psychiatric: Denies anxiety, depression or suicidal thoughts Endocrine Endocrinology: Denies polydipsia, polyphagia or polyuria Hematologic/Lymphati c Hematologic/Lymphati c: Denies easy bleeding, easy bruising or lymphadenopathy Allergic/Immunologic Allergic/Immunologic ED: Denies mouth swelling, tongue swelling or urticaria EXAM Physical Exam Const Vital Signs: 09/23/24 13:04 Temperature 96.5 F L Temperature Source Temporal Pulse Rate 102 H Respiratory Rate 14 Blood Pressure 170/100 H Blood Pressure Mean 123 Pulse Ox 100 Positive well nourished and well developed General Appearance ED: well developed and NAD HEENT Reports TM's clear and moist mucous membranes normocephalic and atraumatic; Negative for trauma or tenderness Tympanic Membrane ED: Yes TM's clear Eyes PERRL and EOMs intact bilaterally General Eye ED: Negative for pale conjunctiva or scleral icterus Neck no lymphadenopathy, supple and no JVD General: Negative for tenderness Chest Wall inspection of chest normal and palpation of chest normal Chest: Negative for tenderness Resp normal res (more content not included)... Normal [facility] Eosinophil percentageOrdered By: oJse Garza on 09-23-2024 Eosinophils/100 WBC (Bld) 2.9 % 0-5 [facility] Epithelial cells.squamous LM Ql (Urine sed)Ordered By: Jose Garza on 09-23-2024 Epithelial cells.squamous LM.HPF (Urine sed) [#/Area] 0 /[HPF] 5-10 [facility] Erythrocyte distribution wid th ratioOrdered By: Jose Garza on 09-23-2024 Erythrocyte distribution width (RBC) [Ratio] 12.0 % 11.6-14.6 [facility] Erythrocyte distribution wid th standard deviationOrdered By: Jose Garza on 09-23-2024 Erythrocyte distribution width (RBC) [Entitic vol] 37.6 fL 35.1-43.9 [facility] Estimation of creatinine nara aranceOrdered By: Jose Garza on 09-23-2024 Estimated Creatinine Clearance Calc 70.64 ml/min 50-250 [facility] GFR/1.73 sq M.predicted maira g non-blacks MDRD (S/P/Bld) [Vol rate/Area]Ordered By: Jose Garza on 09-23-2024 Estimated GFR (MDRD) Non-Af Amer 75 >60 [facility] Comment on above: mL/min/1.73m2 CKD-EP I Creatinine Equation (2020) Glucose Ql (U)Ordered By: Yadira Garza on 09-23-2024 Glucose (U) [Mass/Vol] 1000 mg/dL High Normal [facility] Hematocrit Auto (Bld) [Volum e fraction]Ordered By: Jose Garza on 09-23-2024 Hematocrit (Bld) [Volume fraction] 38.8 % 37-47 [facility] Hemoglobin measurementOrdere d By: Jose Garza on 09-23-2024 Hemoglobin (Bld) [Mass/Vol] 13.5 g/dL 12.0-15.0 [facility] Immature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 07-08-2024 Telephone encounter [facility] Work Phone: [facility] Comment on above: Appointment Start: 06-02-2024 End: 06-02-2024 Patient encounter procedure Cristina Esparza LABOR RELATIONS OR PERSONNEL NEGOTIATOR Work Phone: [facility] Comment on above: Needs assistance wit h community resources (Primary Dx) Start: 05-27-2024 End: 05-27-2024 Telephone encounter Anastasiia Joaquin MD Work Phone: [facility] Start: 05-23-2024 End: 05-23-2024 ambulatory RIYAKATHY SILVERIO Facility:[facility] Start: 05-23-2024 End: 05-23-2024 Patient encounter procedure Anastasiia Joaquin MD Work Phone: [facility] Comment on above: Mood disorder (HCC) (Primary Dx); Elevated blood pressure reading without diagnosis of hypertension Start: 04-14-2024 End: 04-14-2024 Emergency department patient visit Ayush Helm Facility:[facility] Start: 12-21-2022 End: 12-21-2022 Emergency department patient visit [facility]-Emergency Department Start: 07-12-2022 End: 07-12-2022 Nursing evaluation of patient and report Nurse Pnob [facility] Work Phone: OB/Gynecology Comment on above: Missed menses (Prima ry Dx) Start: 06-26-2022 End: 06-26-2022 Emergency department patient visit [facility]-Emergency Department Start: 12-28-2021 ambulatory Joey Bradshaw MD Work Phone: Internal Medicine [facility] Start: 10-14-2021 ambulatory Kolby Fisher LPN [facility] Comment on above: PHMA/Care Gap Outrea ch Start: 08-01-2018 End: 08-01-2018 Patient encounter procedure [facility] Procedures Date Procedure Procedure Detail Performing Clinician Start: 07-14-2019 Mammography Kolby patterson LPN Start: 03-07-2017 End: 03-07-2017 Dietary management education, guidance, and counseling Pierce Pemberton MD Start: 03-07-2017 End: 03-07-2017 Documentation of current medications Pierce Pemberton MD Start: 03-07-2017 End: 03-07-2017 Smoking cessation education Pierce Pemberton MD Start: 12-14-2016 Adult depression scr eening assessment Kolby Fisher LPN Start: 07-12-2015 End: 07-12-2015 Dietary management education, guidance, and counseling Pierce Pemberton MD Start: 07-12-2015 End: 07-12-2015 Documentation of current medications Pierce Pemberton MD Start: 07-12-2015 End: 07-12-2015 Smoking cessation education Pierce Pemberton MD Start: 07-12-2015 End: 10-13-2015 Follow Up Appt Other Pierce Pemberton MD Start: 07-12-2015 End: 10-13-2015 Follow Up Appt Other Pierce Pemberton MD Start: 07-29-2014 End: 08-05-2014 Follow up Appt 1 week Pierce Pemberton MD Start: 07-29-2014 End: 08-05-2014 Follow up Appt 1 week Pierce Pemberton MD Start: 07-14-2014 End: 07-20-2014 Follow Up Appt Other Pierce Pemberton MD Start: 07-14-2014 End: 07-20-2014 Follow Up Appt Other Pierce Pemberton MD Start: 08-26-2013 End: 08-27-2013 Follow Up Appt Vivien Pemberton MD Start: 08-26-2013 End: 08-27-2013 Follow Up Appt Vivien Pemberton MD Plan of Treatment Date Care Activity Detail Author Start: 07-02-2043 ONE PNEUMOVAX PRIOR TO AGE 64 ONE PNEUMOVAX PRIOR TO AGE 64 [facility] Comment on above: Postponed from 1995 (Postponed - N ot Clinically Indicated) Start: 07-02-2043 PNEUMOCOCCAL (1 - PCV) PNEUMOCOCCAL (1 - PCV) [facility] Comment on above: Postponed from 1985 (Postponed - N ot Clinically Indicated) Start: 07-02-2043 Pneumococcal vaccination Pneumococcal Vaccine (1 of 2 - PCV) [facility] Comment on above: Postponed from 1985 (Postponed - N ot Clinically Indicated) Postponed from 07/07 (Postponed - Not Clinically Indicated) Start: 05-23-2025 Annual PCP Team Chronic Disease Visit Annual PCP Team Chronic Disease Visit [facility] Start: 09-23-2024 [facility] Start: 09-02-2024 End: 09-02-2024 Patient encounter procedure 09/02/2024 10:00 AM EST Office Visit [facility] [address] [place] [address] Marciano Church DO [address] [place] [address] New patient [facility] Comment on above: New patient Start: 2024 Screening for malignant neoplasm of colon [facility] Start: 03-02-2024 Covid-19 Vaccine () Covid-19 Vaccine () [facility] Start: 03-02-2024 Influenza vaccination Influenza Vaccine (#1) [facility] Start: 11-24-2023 Glaucoma screening Dilated Retinal Exam [facility] Start: 07-12-2022 End: 09-11-2022 Choriogonadotropin ( test) [Presence] in Urine HCG QUAL UR Lab Routine Missed menses Expected: 07/12/2022, Expires: 09/11/2022 [facility] Work Phone: Comment on above: Expected: 07/12/2022, Expires: 3 Start: 07-02-2022 DEPRESSION ASSESSMENT DEPRESSION ASSESSMENT [facility] Start: 06-26-2022 [facility] Work Phone: Start: 03-02-2022 Influenza vaccination [facility] Start: 12-27-2021 HPV TESTING HPV TESTING [facility] Start: 12-27-2021 PAP TESTING PAP TESTING [facility] Start: 12-27-2021 Screening for malignant neoplasm of cervix Cervical Cancer Screening [facility] Start: 10-18-2021 End: 12-18-2021 ALBUMIN/CREAT RATIO RND UR ALBUMIN/CREAT RATIO RND UR Lab Routine Type 2 diabetes mellitus with 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, 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) Expected: 10/18/2021, Expires: 12/18/2021 [facility] Work Phone: Comment on above: Expected: 10/18/2021, Expires: 2 Start: 10-18-2021 End: 12-18-2021 CBC W Auto Differential panel - Blood CBC + DIFF Lab Routine Type 2 diabetes mellitus with 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, unspecified whether assisted insulin use (HCC) Expected: 10/18/2021, Expires: 12/18/2021 [facility] Work Phone: Comment on above: Expected: 10/18/2021, Expires: 2 Start: 10-18-2021 End: 12-18-2021 Comprehensive metabolic 2000 panel - Serum or Plasma COMP METABOLIC PANEL Lab Routine Screening for hyperlipidemia Expected: 10/18/2021, Expires: 12/18/2021 [facility] Work Phone: Comment on above: Expected: 10/18/2021, Expires: 2 Start: 10-18-2021 End: 12-18-2021 Hemoglobin A1c/Hemoglobin.total in Blood HGB A1C Lab Routine Type 2 diabetes mellitus with 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, 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) Expected: 10/18/2021, Expires: 12/18/2021 [facility] Work Phone: Comment on above: Expected: 10/18/2021, Expires: 2 Start: 10-18-2021 End: 12-18-2021 LIPID PANEL BASIC LIPID PANEL BASIC Lab Routine Screening for hyperlipidemia Expected: 10/18/2021, Expires: 12/18/2021 [facility] Work Phone: Comment on above: Expected: 10/18/2021, Expires: 2 Start: 07-14-2020 Mammography MAMMOGRAM [facility] Start: 07-14-2020 Screening for malignant neoplasm of breast Mammogram Screening [facility] Start: 07-10-2020 ANNUAL PCP TEAM CHRONIC DISEASE VISIT ANNUAL PCP TEAM CHRONIC DISEASE VISIT [facility] Start: 07-10-2020 Hepatitis B screening URINE ALBUMIN:CREATININE RATIO [facility] Start: 06-23-2020 Hepatitis B surface antibody level LDL CHOLESTEROL [facility] Start: 02-08-2020 3 comp foot exam [facility] Start: 02-08-2020 Diabetic foot examination Diabetic Foot Exam [facility] Start: 09-22-2019 Hemoglobin A1c measurement HbA1C [facility] roseann Start: 09-22-2019 Hemoglobin A1c/Hemoglobin.total in Blood HBA1C [facility] Start: 04-10-2018 Hepatitis C antibody, confirmatory test DILATED RETINAL EXAM [facility] Start: 12-14-2017 Adult depression screening assessment DEPRESSION SCREENING [facility] Start: 03-07-2017 End: 04-23-2017 Follow Up Appt Other Follow Up Appt Other [facility] Work Phone: Start: 02-19-2017 End: 02-19-2017 Appointment Appointment [facility] Work Phone: Start: 07-12-2015 End: 10-13-2015 Follow Up Appt Other Follow Up Appt Other [facility] Work Phone: Start: 07-12-2015 End: 10-13-2015 Follow Up Appt Other [facility] Work Phone: Start: 07-29-2014 End: 08-05-2014 Follow up Appt 1 week Follow up Appt 1 week [facility] Work Phone: Start: 07-29-2014 End: 08-05-2014 Follow up Appt 1 week Follow up Appt 1 week [facility] Work Phone: Start: 07-14-2014 End: 07-20-2014 Follow Up Appt Other Follow Up Appt Other [facility] Work Phone: Start: 07-14-2014 End: 07-20-2014 Follow Up Appt Other Follow Up Appt Other [facility] Work Phone: Start: 08-26-2013 End: 08-27-2013 Follow Up Appt Other Follow Up Appt Other [facility] Work Phone: Start: 08-26-2013 End: 08-27-2013 Follow Up Appt Other Follow Up Appt Other [facility] Work Phone: Start: 1998 HEPATITIS B (1 of 3 - Risk 3-dose series) HEPATITIS B (1 of 3 - Risk 3-dose series) [facility] Start: 1998 Hepatitis B Vaccine (1 of 3 - 19+ 3-dose series) Hepatitis B Vaccine (1 of 3 - 19+ 3-dose series) [facility] Start: 1998 Urine microalbumin profile [facility] Start: 1997 Anxiety Screening Anxiety Screening [facility] Start: 1997 Depression Screening Depression Screening [facility] Start: 1997 HEPATITIS C SCREENING HEPATITIS C SCREENING [facility] Start: 1997 Hepatitis C screening Hepatitis C Screening [facility] Start: 1997 HIV SCREENING HIV SCREENING [facility] Start: 1997 HIV screening HIV Screening [facility] Start: 1984 COVID-19 VACCINE (1) COVID-19 VACCINE (1) [facility] Start: 01-05-1980 COVID-19 VACCINE (#1) COVID-19 VACCINE (#1) [facility] Start: 1979 HEPATITIS B (1 of 3 - 3-dose series) HEPATITIS B (1 of 3 - 3-dose series) [facility] Patient Education [facility] Work Phone: Patient referral [facility] Work Phone: End: 01-27-2023 Screening mammography bi 2-view breast inc cad KRISTI SCREENING Radiology Routine Encounter for screening mammogram for breast cancer 1 Occurrences starting 12/28/2021 until 01/27/2023 [facility] Work Phone: Comment on above: 1 Occurrences starting 12/28/2021 until 01/27/2023 [facility]rine culture [facility] Immunizations Immunization Date Immunization Notes Care Provider Rhina lino 07-23-2018 influenza virus vacc ine, unspecified formulation Anastasiia Joaquin MD Work Phone: [facility] 04-15-2013 influenza virus vacc ine, unspecified formulation Kolby Fisher LPN [facility] 12-14-2010 tetanus toxoid, [facility] P[facility] Date Payer Category Payer Self-pay [id number] 2024 Unknown [id number] 2023 Private Health Insurance JASVIR MAZARIEGOS [id number] 2023 Unknown JASVIR TAY HI X [id number] 2023-Present [phone] [address] [address] [place] [address] [facility] [id number] 2012 Unknown [employer] [id number] 2012 Unknown [id number] 2012 Medicaid [employer] [id number] 2012-Present [phone] [address] [place] [address] Medicaid [id number] 2012 Medicaid [id number] Unknown [id number] Unknown [id number] Social History Date Type Detail Facility Start: 07-14-2019 End: 09-23-2024 Tobacco smoking status PAIS Smokes tobacco daily [facility] History of tobacco use Cigar Smoker [facility] Start: 12-29-2019 End: 05-23-2024 Alcohol intake Current non-drinker of alcohol (finding) [facility] Start: 03-13-2019 End: 05-23-2024 Tobacco Comment 1 cigar daily [facility] Start: 1980 Sex Assigned At Not on file [facility] Start: 10-09-2021 End: 10-19-2021 Exposure to SARS-CoV-2 (event) Not sure [facility] Start: 06-26-2022 End: 12-21-2022 Tobacco smoking status NHIS Unknown if ever smoked [facility] Start: 12-27-2020 Occasional [facility] Start: 12-27-2020 Marijuana [facility] Start: 12-27-2020 Cigarettes [facility] Start: 1980 Sex Assigned At Female W [facility] History of tobacco use Cigarette Smoker [facility] Work Phone: Start: 07-14-2019 End: 05-23-2024 Cigarettes smoked current (pack per day) - Reported 0.3 [facility] Start: 07-14-2019 End: 05-23-2024 Tobacco use and exposure Smokeless tobacco non-user [facility] Work Phone: Start: 05-23-2024 Tobacco use panel [facility] Adult Depression Screening Assessment 4 [facility] Start: 10-20-2014 Spouse/ Significant Other Spouse/ Significant Other [facility] Start: 09-23-2024 Sex Female (finding) [facility] NEGATED: Highlighted row [facility] Medical Equipment Procedure Code Equipment Code Equipment Original Text Equipment Identifier Dates [id number], [id number], [id number] Start: 10-25-2017 Comment on above: Test blood sugar(s) 4 times daily. Dx: Type 2 DM - Uncontrolled E11.65 Insulin: Yes Test blood sugar(s) 4 times daily. Dx: Type 2 DM - Controlled E11.9 Insulin: Yes Functional Status Date Assessment Result Facility 09-24-2014 Are you deaf, or do you have serious difficulty hearing No 09/24/2014 2:04 PM Jolie Lawrence Cma No [facility] 09-24-2014 Are you blind, or do you have serious difficulty seeing, even when wearing glasses No 09/24/2014 2:04 PM Jolie Lawrence Cma No [facility] 09-24-2014 Do you have serious difficulty walking or climbing stairs No 09/24/2014 2:04 PM EDT Jolie Dennis Cma No [facility] 09-24-2014 Do you have difficul ty dressing or bathing No 09/24/2014 2:04 PM EDT Jolie Dennis Cma [facility] 09-24-2014 Because of a physica l, mental, or emotional condition, do you have difficulty doing errands alone such as visiting a physician's office or shopping No 09/24/2014 2:04 PM EDT Jolie Dennis Cma No [facility] Mental Status Date Assessment Result Facility 06-26-2022 Cognitive function Level Of Cons ciousness Awake;Alert;Appropriate;Fol lows Commands [facility] Work Phone: 09-24-2014 Because of a physica l, mental, or emotional condition, do you have serious difficulty concentrating, remembering, or making decisions No 09/24/2014 2:04 PM EDT Jolie Dennis Cma No [facility] Clinical Notes 05-01-2013 to 04-13-2025 Renetta Murillo LPN - 09/24/2024 9:22 AM EDT Note Date & Type Note Facility 04-13-2025 Note HNO ID: [id number] Author: CHERYL MUNOZ RN Service: ? Author Type: Registered Nurse Type: Progress Notes Filed: 04/13/2025 13:00 Note Text: [facility] POPULATION HEALTH NAVIGATION OUTREACH Action/FYI Patient Identified by Name and : Yes, via phone Reason for Outreach Care Gap or Scheduling Wellness Visits Care Gap Reviewed:: Annual Wellness visit Colorectal Cancer Screening Diabetic Eye Exam HBA1C/GMI KED (UACR/eGFR) Outreach Outcome/Action Unable to reach patient: Phone number not valid / voicemail full Population Health Navigation Workflow Chart Review Payer: Jasvir Krishnan Signature: Cheryl Munoz RN April 13, 2025 12:[address] [facility] 04-13-2025 Note Patient Outreach ([facility]) MINDY FAULKNER ([id number]) 1980 F Date Time Provider Department 04/13/25 CHERYL MUNOZ [facility] During your visit today, we recorded the following information about you: Cheryl Munoz RN 04/13/2025 1:00 PM Signed [facility] POPULATION HEALTH NAVIGATION OUTREACH Action/FYI Patient Identified by Name and : Yes, via phone Reason for Outreach Care Gap or Scheduling Wellness Visits Care Gap Reviewed:: Annual Wellness visit Colorectal Cancer Screening Diabetic Eye Exam HBA1C/GMI KED (UACR/eGFR) Outreach Outcome/Action Unable to reach patient: Phone number not valid / voicemail full Population Health Navigation Workflow Chart Review Payer: Tay Eulogio Signature: Cheryl Munoz RN April 13, 2025 12:59 PM Allergies As of Date: 04/13/2025 Noted Allergy Reaction DILAUDID (HYDROMORPHONE (BULK)) 07/16/2012 1 - Mental Status Change TRAMADOL 07/23/2015 14 - Other: See Comments Comments: Heart racing VICODIN (HYDROCODONE-ACETAMINOPHE* 013 8 - GI Upset Date Reviewed: 05/23/2024 Reviewed by: Margie Thakur LPN - Fully Assessed Reason for Visit: Population Health Navigation Outreach [3910] Cmt: A1c outreach Prescriptions as of 04/13/2025 - ibuprofen (MOTRIN) 600 mg tablet Take 1 tablet by mouth every 6 hours as needed for Pain. - amoxicillin (AMOXIL) 875 mg tablet Take 875 mg by mouth twice daily. - amitriptyline (ELAVIL) 25 mg tablet Take 1 tablet by mouth daily at bedtime. - insulin glargine (LANTUS) 100 unit/mL injection insulin glargine LANTUS 100 UNIT/ML SOLN INSULIN GLARGINE [id number] Pierce Pemberton MD 08-26-2013 [facility] ([id number]) - L. acidophilus-L. rhamnosus 15 billion cell cap Take 1 capsule by mouth once daily. [employer]OR[employer] WOMEN. If on antibiotic, take at least 1-2 hours before or after antibiotic. KEEP REFRIGERATED - cholecalciferol, Vitamin D3, (VITAMIN D3) 1,250 mcg (50,000 unit) cap capsule Take 1 capsule by mouth one time a week. - lisinopril (ZESTRIL, PRINIVIL) 5 mg tablet Take 1 tablet by mouth once daily. - blood sugar diagnostic (BLOOD GLUCOSE TEST) test strip Test blood sugar(s) 4 times daily. Dx: Type 2 DM - Uncontrolled E11.65 Insulin: Yes - lancets (FREESTYLE LANCETS) 28 gauge misc Test blood sugar(s) 4 times daily. Dx: Type 2 DM - Controlled E11.9 Insulin: Yes - doxycycline monohydrate (MONODOX) 100 mg capsule Take 1 capsule by mouth twice daily. - metFORMIN (GLUCOPHAGE) 1,000 mg tablet Take 1 tablet by mouth twice daily with meals. - insulin glargine (LANTUS SOLOSTAR, BASAGLAR KWIKPEN) 100 unit/mL (3 mL) inpn Inject 13 Units subcutaneously twice daily. - Lancets lancets Test blood sugar(s) 4 times daily. Dx: Type 2 DM - Uncontrolled E11.65 Insulin: Yes - Blood-Glucose Meter (FREESTYLE LITE METER) monitoring kit Freestyle LITE Meter Kit - Dx: Type 2 DM - Controlled E11.9 Problem List As Of Date 04/13/2025 Noted Resolved Pilonidal Cyst with Abscess [L05.01] 03/15/2010 NO SHOW [[id number]] 05/01/2013 07/06/2014 Brachial plexus neuropathy [G54.0] 06/04/2013 Neuropathic pain [M79.2] 06/04/2013 Type 2 diabetes mellitus with 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 *10/23/2013 Hidradenitis suppurativa [L73.2] 10/26/2013 HPV test positive [OFF6930] 07/16/2014 Tobacco use disorder [F17.200] 12/14/2016 History of substance abuse [F19.11] 07/23/2018 Pain in joint of left shoulder region [M25.512] 09/05/2018 Abnormal mammogram [R92.8] 10/14/2019 Encounter Status:Closed by CHERYL MUNOZ on 04/13/25 [facility] 09-25-2024 Note HNO ID: [id number] Author: ANASTASIIA JOAQUIN MD Service: ? Author Type: Resident Type: Progress Notes Filed: 09/25/2024 13:17 Note Text: Noted, thanks. [facility] 09-25-2024 Note HNO ID: [id number] Author: SUSHMA QUIGLEY LPN Service: ? Author Type: LICENSED NURSE Type: Progress Notes Filed: 09/25/2024 11:26 Note Text: ED Follow Up: Patient discharged from [facility] ED on 09/23/24. Attempted to call patient, no answer.Unable to leave a message due to message comes on stating this number has 'call restrictions'. This is the second attempt to contact this patient for an ED Outreach and not being able to reach this patient. Sushma Quigley LPN [facility] 09-24-2024 Note HNO ID: [id number] Author: RENETTA MURILLO LPN Service: ? Author Type: LICENSED NURSE Type: Progress Notes Filed: 09/24/2024 09:24 Note Text: ED Follow Up: Patient discharged from [facility] ED on 09/23/24. Attempted to call patient, no answer.Unable to leave a message due to message comes on stating this number has call restrictions and call can not be completed. Renetta Murillo LPN [facility] 09-24-2024 History of Present illness Narrative ED Follow Up: Patient discharged from [facility] ED on 09/23/24. Attempted to call patient, no answer.Unable to leave a message due to message comes on stating this number has call restrictions and call can not be completed. Renetta Murillo LPN documented in this encounter [facility] 09-24-2024 Note Patient Outreach ([facility]) MINDY FAULKNER ([id number]) 1980 F Date Time Provider Department 09/24/24 RENETTA MURILLO [facility] During your visit today, we recorded the following information about you: Renetta Murillo LPN 09/24/2024 9:24 AM Signed ED Follow Up: Patient discharged from [facility] ED on 09/23/24. Attempted to call patient, no answer.Unable to leave a message due to message comes on stating this number has call restrictions and call can not be completed. BRE Darden Abbigail, LPN 09/25/2024 11:26 AM Signed ED Follow Up: Patient discharged from [facility] ED on 09/23/24. Attempted to call patient, no answer.Unable to leave a message due to message comes on stating this number has 'call restrictions'. This is the second attempt to contact this patient for an ED Outreach and not being able to reach this patient. BRE Perea Kailey, MD 09/25/2024 1:17 PM Signed Noted, thanks. Allergies As of Date: 09/24/2024 Noted Allergy Reaction DILAUDID (HYDROMORPHONE (BULK)) 07/16/2012 1 - Mental Status Change TRAMADOL 07/23/2015 14 - Other: See Comments Comments: Heart racing VICODIN (HYDROCODONE-ACETAMINOPHE* 013 8 - GI Upset Date Reviewed: 05/23/2024 Reviewed by: Margie Thakur LPN - Fully Assessed Reason for Visit: ED outreach [Other] Cmt: 09/23/24 [facility] Prescriptions as of 09/25/2024 - ibuprofen (MOTRIN) 600 mg tablet Take 1 tablet by mouth every 6 hours as needed for Pain. - amoxicillin (AMOXIL) 875 mg tablet Take 875 mg by mouth twice daily. - amitriptyline (ELAVIL) 25 mg tablet Take 1 tablet by mouth daily at bedtime. - insulin glargine (LANTUS) 100 unit/mL injection insulin glargine LANTUS 100 UNIT/ML SOLN INSULIN GLARGINE [id number] Pierce Pemberton MD 08-26-2013 [facility] ([id number]) - L. acidophilus-L. rhamnosus 15 billion cell cap Take 1 capsule by mouth once daily. [employer] WOMEN. If on antibiotic, take at least 1-2 hours before or after antibiotic. KEEP REFRIGERATED - cholecalciferol, Vitamin D3, (VITAMIN D3) 1,250 mcg (50,000 unit) cap capsule Take 1 capsule by mouth one time a week. - lisinopril (ZESTRIL, PRINIVIL) 5 mg tablet Take 1 tablet by mouth once daily. - blood sugar diagnostic (BLOOD GLUCOSE TEST) test strip Test blood sugar(s) 4 times daily. Dx: Type 2 DM - Uncontrolled E11.65 Insulin: Yes - lancets (FREESTYLE LANCETS) 28 gauge misc Test blood sugar(s) 4 times daily. Dx: Type 2 DM - Controlled E11.9 Insulin: Yes - doxycycline monohydrate (MONODOX) 100 mg capsule Take 1 capsule by mouth twice daily. - metFORMIN (GLUCOPHAGE) 1,000 mg tablet Take 1 tablet by mouth twice daily with meals. - insulin glargine (LANTUS SOLOSTAR, BASAGLAR KWIKPEN) 100 unit/mL (3 mL) inpn Inject 13 Units subcutaneously twice daily. - Lancets lancets Test blood sugar(s) 4 times daily. Dx: Type 2 DM - Uncontrolled E11.65 Insulin: Yes - Blood-Glucose Meter (FREESTYLE LITE METER) monitoring kit Freestyle LITE Meter Kit - Dx: Type 2 DM - Controlled E11.9 Problem List As Of Date 09/24/2024 Noted Resolved Pilonidal Cyst with Abscess [L05.01] 03/15/2010 NO SHOW [[id number]] 05/01/2013 07/06/2014 Brachial plexus neuropathy [G54.0] 06/04/2013 Neuropathic pain [M79.2] 06/04/2013 Type 2 diabetes mellitus with 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 *10/23/2013 Hidradenitis suppurativa [L73.2] 10/26/2013 HPV test positive [LBT5047] 07/16/2014 Tobacco use disorder [F17.200] 12/14/2016 History of substance abuse [F19.11] 07/23/2018 Pain in joint of left shoulder region [M25.512] 09/05/2018 Abnormal mammogram [R92.8] 10/14/2019 Encounter Status:Closed by RENETTA MURILLO on 09/24/24 [facility] 09-23-2024 Discharge summary [facility] 09-23-2024 Discharge summary Note Date/Time September 23, 2024 3:55pm [facility] Medical Records Department [address] [place] [address] Emergency Department Summary 09/23/24 MR#: [id number] Acct: [id number] Name: MINDY FAULKNER Rep #:[id number] : 1980 44 From: Jose Garza DO PCP: Care Physician,No Primary Status :REG ER Location: ED HPI History of Present Illness Chief Complaint: Lower Extremity Injury Detail of Chief Complaint: Leg spasms Informant: patient Narrative Narrative: Patient presents to the emergency room with complaint of leg spasms that startedabout 2 weeks ago or so. Usually worse at night. Describes the spasms as in her groin bilaterally. Spasm into her upper thighs. Does not involve the lowerextremities. She has noticed some swelling in both lower extremities. Patient states that she has a history of hidradenitis suppurativa for which she has had surgery for. Patient describes and cloudy urine. No dysuria urgency or frequency. She no shortness of breath. She denies recent travel or surgery. No history of PE or DVT. Does not see a primary care physician. [facility] Medical History Wears dentures Wears glasses Anxiety Diabetes Kidney stones Anemia Back pain Injury of back Migraine headache Injury of head and neck Loss of consciousness Gastric reflux Smoker Leg cramps History of pain when walking History of edema Hx of hidradenitis suppurativa Personal history of Methicillin resistant Staphylococcus aureus infection Right axillary hidradenitis Arthritis Smoker DM type 2 (diabetes mellitus, type 2) Home Medications ?Medication ?Instructions ?Recorded ?Last Taken ?Type amlodipine 5 mg tablet (Norvasc) 5 mg PO DAILY #30 tab s 09/23/24 Unknown Rx metformin 850 mg tablet 850 mg PO DAILY #30 tabs Unknown Rx sulfamethoxazole 800 1 tab PO BID #14 tabs Unknown Rx mg-trimethoprim 160 mg tablet (Bactrim DS) Allergy/AdvReac Type Severity Reaction Status Date / Time hydrocodone bitartrate (From AdvReac Vomiting Verified 09/23/24 13:04 Vicodin) hydromorphone HCl (From AdvReac Other Verified 09/23/24 13:04 Dilaudid) tramadol AdvReac Other Verified 09/23/24 13:04 Family History Other Diabetes Surgical History Hx of tooth extraction History of cystoscopy Hidradenitis Social History household members: none Smoking Status: Current every day smoker tobacco type: cigarettes second hand exposure: Yes alcohol intake: former substance use type: marijuana additional social history: Does Not Take Aspirin Does Take Ibuprofen As Needed ROS ROS ED Review of Systems ROS Unobtainable: other Constitutional Constitutional ED: Reports lethargy; Denies chills, fever(s), sweats or weight loss Eyes Eyes: Denies blurry vision, change in vision or diplopia ENT ENT ED: Denies rhinorrhea or sore throat Cardiovascular Cardiovascular: Denies chest pain, orthopnea or racing heartbeat Respiratory/Chest Respiratory/Chest: Denies cough, dyspnea, dyspnea on exertion, orthopnea or sputum Gastrointestinal Gastrointestinal: Denies abdominal pain, diarrhea, nausea or vomiting Genitourinary Genitourinary ED: Denies dysuria, hematuria or urinary frequency Musculoskeletal Musculoskeletal: Reports other Details: Bilateral leg edema, leg spasms ; Denies arthralgias, back pain, myalgias or neck pain Integumentary Denies abscess, Abrasions or rash Neurologic Neurologic: Denies headache(s) or weakness Psychiatric Psychiatric: Denies anxiety, depression or suicidal thoughts Endocrine Endocrinology: Denies polydipsia, polyphagia or polyuria Hematologic/Lymphatic Hematologic/Lymphatic: Denies easy bleeding, easy bruising or lymphadenopathy Allergic/Immunologic Allergic/Immunologic ED: Denies mouth swelling, tongue swelling or urticaria EXAM Physical Exam Const Vital Signs: 09/23/24 13:04 Temperature 96.5 F L Temperature Source Temporal Pulse Rate 102 H Respiratory Rate 14 Blood Pressure 170/100 H Blood Pressure Mean 123 Pulse Ox 100 Positive well nourished and well developed General Appearance ED: well developed and NAD HEENT Reports TM's clear and moist mucous membranes normocephalic and atraumatic; Negative for trauma or tenderness Tympanic Membrane ED: Yes TM's clear Eyes PERRL and EOMs intact bilaterally General Eye ED: Negative for pale conjunctiva or scleral icterus Neck no lymphadenopathy, supple and no JVD General: Negative for tenderness Chest Wall inspection of chest normal and palpation of chest normal Chest: Negative for tenderness Resp normal respiratory effort and clear to auscultation bilaterally Effort and Inspection: Negative for respiratory distress or pain with movement Auscultation: Negative for rhonchi, wheezes or diminished lung sounds Cardio regular rate, regular rhythm, S1 normal heart sound, S2 normal heart sound and no murmurs Peripheral Pulses: pulses 2+ throughout GI normal to inspection, nondistended, normoactive bowel sounds, soft to palpation,non-tender, non-distended and no masses Back/Spine no CVA tenderness and no thoracic nor lumbar tenderness Extremity Extremity Narrative: Patient with +1 edema both lower extremities from thighs down to feet. No ropesor cords palpated. No cellulitic changes. No masses palpated. General Extremety ED: Yes edema General Extremity: edema Neuro oriented x3, CN's II-XII intact bilaterally, no sensory deficits noted and gait normal Sensorium / Orientation: awake, alert, oriented to person, oriented to place andoriented to time Motor Exam: strength 5/5 throughout and strength abnormal Psych mental status grossly normal Skin no rashes or lesions noted and no wounds MDM MDM MDM Narrative Medical decision making narrative: Patient presents with some spasms in her groin. Ongoing for 2 weeks. She complains of some frothy urine at times. Denies fevers or chills or sweats. She has history of diabetes and hypertension but noncompliant with medication. She has an appointment to see a primary care physician on October 06. Patient had venous Dopplers of both lower extremities obtained and these were negative for DVT. CBC with differential, 6.6 with hemoglobin 13.5 and platelet count 285. Chemistries show a sodium of 132 with potassium of 3.6 and chloride of 99. BUN was 12 and creatinine 0.95. LFTs unremarkable. Urinalysis positive for UTI andas well as spilling glucose. Patient started on Bactrim. Patient's glucose waselevated here 415 therefore I did start her on metformin. Patient also was given Norvasc 5 mg p.o. I will write her a prescription for metformin as well as Norvasc and Bactrim. Clinically she looks well. I feel she can be discharged to home. Advised to follow-up with primary care physician as scheduled. Lab Data Attestation: I reviewed the patient's lab results. Labs: Laboratory Results - last 24 hr 09/23/24 09/23/24 13:30 13:50 WBC 6.6 RBC 4.53 Hgb 13.5 Hct 38.8 MCV 85.7 MCH 29.8 MCHC 34.8 RDW Std Deviation 37.6 RDW Coeff of Giselle 12.0 Plt Count 285 MPV 11.0 Immature Gran % (Auto) 0.300 Neut % (Auto) 53.1 Lymph % (Auto) 35.8 Barry % (Auto) 6.8 Eos % (Auto) 2.9 Baso % (Auto) 1.1 H Absolute Neuts (auto) 3.5 Absolute Lymphs (auto) 2.36 Nucleated RBC % 0 Sodium 132 L Potassium 3.6 Chloride 99 Carbon Dioxide 24.2 Anion Gap 9 BUN 12 Creatinine 0.95 Estim Creat Clear Calc 70.64 Est GFR (MDRD) Non-Af 75 BUN/Creatinine Ratio 12.2 Glucose 415 H Calcium 8.1 Magnesium 1.8 Total Bilirubin < 0.15 AST 21 ALT 15 Alkaline Phosphatase 73 Total Protein 5.6 L Albumin 2.2 L Globulin 3.3 Albumin/Globulin Ratio 0.7 L Urine Color Straw Urine Clarity Cloudy Urine pH 6.5 Ur Specific [place] 1.015 Urine Protein 500 H Urine Glucose (UA) 1000 H Urine Ketones 5 H Urine Occult Blood 50 H Urine Nitrite Negative Urine Bilirubin Negative Urine Urobilinogen Normal Ur Leukocyte Esterase 100 H Urine RBC 5-10 SEEN Urine WBC 50-100 SEEN Ur Squamous Epith Cells 0 SEEN Urine Bacteria 3+ Urine Mucus RARE Discharge Plan Triage Chief Complaint: Lower Extremity Injury ED Provider: Jose Garza Dx/Rx/DC Orders Clinical Impression: UTI (urinary tract infection), Type 2 diabetes mellitus, Hypertension Instructions: ED Diabetes- Overview, ED High Blood Pressure Hypertension, ED UTIs Women Prescriptions: New metformin 850 mg tablet 850 mg PO DAILY Qty: 30 0RF amlodipine [Norvasc] 5 mg tablet 5 mg PO DAILY Qty: 30 0RF sulfamethoxazole-trimethoprim [Bactrim DS] 800-160 mg tablet 1 tab PO BID Qty: 14 0RF Primary Care Provider: Care Physician,No Primary Referrals: Yariel Cruz MD [Med Staff - Boring Machine Set Up Operator Jig] - 3-5 Days Care Physician,No Primary [Primary Care Provider] - Activity Restrictions/Additional Instructions: Keep your appointment with primary care physician. Print Language: Kiswahili Disposition Disposition: Home, Self Care What to do if you have Problems For any increased pain, shortness of breath, bleeding, nausea or vomiting, chestpain, or any unexpected problems, contact your Primary Care Provider. Call [facility] ([phone]) or report to the closest Emergency Room. Call 911 if necessary. 09/23/24 7010 <Electronically signed by Jose Garza DO> Cosigner Signature (if applicable): CC: No Primary Care Physician ~ Signed [facility] Work Phone: [phone] 590-503503-25-2025 NotePatient Outreach (AGCFM) MINDY FAULKNER ([id number]) 1980 F Date Time Provider Department 09/23/24 RIYA SILVERIO [facility] During your visit today, we recorded the following information about you: Allergies As of Date: 09/23/2024 Noted Allergy Reaction DILAUDID (HYDROMORPHONE (BULK)) 07/16/2012 1 - Mental Status Change TRAMADOL 07/23/2015 14 - Other: See Comments Comments: Heart racing VICODIN (HYDROCODONE-ACETAMINOPHE*07/16/2012 8 - GI Upset Date Reviewed: 05/23/2024 Reviewed by: Margie Thakur LPN - Fully Assessed Visit Diagnosis:Encounter for screening mammogram for breast cancer [Z12.31] Order(s):KRISTI SCREENING W NEGRA [[id number]] Order #: [id number] FUTURE Prescriptions as of 10/24/2024 - ibuprofen (MOTRIN) 600 mg tablet Take 1 tablet by mouth every 6 hours as needed for Pain. - amoxicillin (AMOXIL) 875 mg tablet Take 875 mg by mouth twice daily. - amitriptyline (ELAVIL) 25 mg tablet Take 1 tablet by mouth daily at bedtime. - insulin glargine (LANTUS) 100 unit/mL injection insulin glargine LANTUS 100 UNIT/ML SOLN INSULIN GLARGINE [id number] Pierce Pemberton MD 08-26-2013 [facility] ([id number]) - L. acidophilus-L. rhamnosus 15 billion cell cap Take 1 capsule by mouth once daily. [employer]OR[employer] WOMEN. If on antibiotic, take at least 1-2 hours before or after antibiotic. KEEP REFRIGERATED - cholecalciferol, Vitamin D3, (VITAMIN D3) 1,250 mcg (50,000 unit) cap capsule Take 1 capsule by mouth one time a week. - lisinopril (ZESTRIL, PRINIVIL) 5 mg tablet Take 1 tablet by mouth once daily. - blood sugar diagnostic (BLOOD GLUCOSE TEST) test strip Test blood sugar(s) 4 times daily. Dx: Type 2 DM - Uncontrolled E11.65 Insulin: Yes - lancets (FREESTYLE LANCETS) 28 gauge misc Test blood sugar(s) 4 times daily. Dx: Type 2 DM - Controlled E11.9 Insulin: Yes - doxycycline monohydrate (MONODOX) 100 mg capsule Take 1 capsule by mouth twice daily. - metFORMIN (GLUCOPHAGE) 1,000 mg tablet Take 1 tablet by mouth twice daily with meals. - insulin glargine (LANTUS TEJASAR, LIBBY BARRAGAN) 100 unit/mL (3 mL) inpn Inject 13 Units subcutaneously twice daily. - Lancets lancets Test blood sugar(s) 4 times daily. Dx: Type 2 DM - Uncontrolled E11.65 Insulin: Yes - Blood-Glucose Meter (FREESTYLE LITE METER) monitoring kit Freestyle LITE Meter Kit - Dx: Type 2 DM - Controlled E11.9 Problem List As Of Date 09/23/2024 Noted Resolved Pilonidal Cyst with Abscess [L05.01] 03/15/2010 NO SHOW [[id number]] 05/01/2013 07/06/2014 Brachial plexus neuropathy [G54.0] 06/04/2013 Neuropathic pain [M79.2] 06/04/2013 Type 2 diabetes mellitus with 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 *10/23/2013 Hidradenitis suppurativa [L73.2] 10/26/2013 HPV test positive [[id number]] 07/16/2014 Tobacco use disorder [F17.200] 12/14/2016 History of substance abuse [F19.11] 07/23/2018 Pain in joint of left shoulder region [M25.512] 09/05/2018 Abnormal mammogram [R92.8] 10/14/2019 Encounter Status:Closed by DEMOND ASCENCIO on 10/24/24[facility] 07-08-2024 Telephone encounter Note* Telephone Encounter - Mali Mercado - 07/08/2024 9:14 AM EST Patient called to make 1st appt in office I gave her directions etc Mali Mercado July 08, 2024 9:14 AM [facility]01-07-2025 Miscellaneous Notes* Telephone Encounter - Mali Mercado - 07/08/2024 9:14 AM EST Patient called to make 1st appt in office I gave her directions etc Mali Mercado July 08, 2024 9:14 AM documented in this encounter[facility]24 NoteHNO ID: [id number] Author: CRISTINA ESPARZA LSW Service: ? Author Type: Home Supervisor Type: Progress Notes Filed: 06/02/2024 15:42 Note Text: Outcall to patient as per referral below: No response. Left voice message. As patient resides in [place] would provide local agencies: [employer] [address] [id number] [employer]: Referral [facility] [address] [place] [address] Patient: Mindy Faulkner ([id number]) Sex: Female : 1980 [facility] ID Number: [id number] [place] ID Number: [id number] [facility]: [id number] [facility]: [id number] Address: [address] [facility] [place] [address] CONSULT TO VP SECURITIES ( IMCA/CFM ONLY) Priority: Routine Class: Jarrett External Referral Comment: Callum Cristina! Ms. Faulkner is requesting to get into counseling. I placed a referral for psychiatry upstairs but she is hoping to get in soon, so I wanted to connect her with you to see if there are any other resources that could be available to her in the meantime. She is struggling with depression and isolation. I saw her in the office last Wednesday 05/23. Thank you! Associated Diagnoses Mood disorder (HCC) [F39] SOCIAL WORK LOCATIONS -> CFM Only CCF Epic access? -> No/Unknown Referral Reason -> Assistance with consults -> Assistance with mental health resources, referrals, initial assessment for need for services Order Date:05/27/2024 Ordering User:ANASTASIIA JOAQUIN Authorizing Provider:Johann Montiel Department:[facility] Location: [facility] Provider ID: [id number] NPI Number: [id number] Priority: Routine Referred by: None Referral type: Transition of Care Referral reason: PCP Requested Referral To Location/POS: None To Specialty: None Visits requested: 1 Expiration Date: 08/25/24 Referred to: Not Available Electronically Signed by: ANASTASIIA JOAQUIN Telephone 05/27/2024 [facility] Anastasiia Joaquin MD Family Medicine Mood disorder (HCC) Dx All Conversations (Newest Message First)View All Conversations on this Encounter June 02, 2024 06/02/24 3:18 PM You routed this conversation to Anastasiia Joaquin MD May 27, 2024 05/27/24 9:17 AM Anastasiia Joaquin MD routed this conversation to [facility] Social Work Referral [place] Anastasiia Joaquin MD 05/27/24 9:13 AM Note Called Ms. Faulkner at number in chart; verified and . Patient says she is doing "alright." She is requesting counseling as her main goal right now. She has not received call yet from behavioral health referral so I let her know to call our office if she does not hear by the end of the week. She is also interested in speaking with our public health social worker so I also let her know I would place a consult for [facility]. Provided number for suicide/crisis hotline 988. Patient has no questions. Anastasiia Joaquin MD 05/27/2024 9:13 [facility]12-02-2024 History of Present illness Narrative* Cristina Esparza, LABOR RELATIONS OR PERSONNEL NEGOTIATOR - 06/02/2024 3:20 PM EST Images from the original note were not included. Outcall to patient as per referral below: No response. Left voice message. As patient resides in [place] would provide local agencies: [employer] [address] [place] [address] [employer] solutions: Referral [address] [address] Patient: Mindy Faulkner ([id number]) Sex: Female : 1980 [facility] ID Number: [id number] [place] ID Number: [id number] [facility]: [id number] [facility]: [id number] Address: [address] [facility] [place] [address] CONSULT TO VP SECURITIES ( IMCA/CFM ONLY) Priority: Routine Class: Jarrett External Referral Comment: Callum Evans! Ms. Faulkner is requesting to get into counseling. I placed a referral for psychiatry upstairs but she is hoping to get in soon, so I wanted to connect her with you to see if there are any other resources that could be available to her in the meantime. She is struggling with depression and isolation. I saw her in the office last Wednesday 05/23. Thank you! Associated Diagnoses Mood disorder (HCC) [F39] SOCIAL WORK LOCATIONS -> CF Only CCF Epic access? -> No/Unknown Referral Reason -> Assistance with consults -> Assistance with mental health resources, referrals, initial assessment for need for services Order Date:05/27/2024 Ordering User:ANASTASIIA JOAQUIN Authorizing Provider:Jhoann Montiel Department:[facility] Location: [facility] Provider ID: [id number] NPI Number: [id number] Priority: Routine Referred by: None Referral type: Transition of Care Referral reason: PCP Requested Referral To Location/POS: None To Specialty: None Visits requested: 1 Expiration Date: 08/25/24 Referred to: Not Available Electronically Signed by: ANASTASIIA JOAQUIN Telephone 05/27/2024 [facility] Anastasiia Joaquin MD Family Medicine Mood disorder (HCC) Dx All Conversations (Newest Message First)View All Conversations on this Encounter June 02, 2024 CG 06/02/24 3:18 PM You routed this conversation to Anastasiia Joaquin MD May 27, 2024 NEL 05/27/24 9:17 AM Anastasiia Joaquin MD routed this conversation to [facility] Social Work Referral Pool Anastasiia Joaquin MD 05/27/24 9:13 AM Note Called Ms. Faulkner at number in chart; verified and . Patient says she is doing "alright." She is requesting counseling as her main goal right now. She has not received call yet from behavioral health referral so I let her know to call our office if shedoes not hear by the end of the week. She is also interested in speaking with our public health social worker so I also let her know I would place a consult for CFM SW. Provided number for suicide/crisis hotline 988. Patient has no questions. Anastasiia Joaquin MD 05/27/2024 9:13 AM documented in this encounterMet[facility]11-26-2024 Telephone encounter Note * Telephone Encounter - Anastasiia Joaquin MD - 05/27/2024 9:08 AM EST Called Ms. Faulkner at number in chart; verified and . Patient says she is doing "alright." She is requesting counseling as her main goal right now. She has not received call yet from behavioral health referral so I let her know to call our office if shedoes not hear by the end of the week. She is also interested in speaking with our public health social worker so I also let her know I would place a consult for [facility] SW. Provided number for suicide/crisis hotline 988. Patient has no questions. Anastasiia Joaquin MD 05/27/2024 9:13 AM [facility]11-26-2024 Miscellaneous Notes* Telephone Encounter - Anastasiia Joaquin MD - 05/27/2024 9:08 AM EST Called Ms. Faulkner at number in chart; verified and . Patient says she is doing "alright." She is requesting counseling as her main goal right now. She has not received call yet from behavioral health referral so I let her know to call our office if shedoes not hear by the end of the week. She is also interested in speaking with our public health social worker so I also let her know I would place a consult for [facility]. Provided number for suicide/crisis hotline 988. Patient has no questions. Anastasiia Joaquin MD 05/27/2024 9:13 AM documented in this encounterMetrohealth [facility]11-24-2024 NoteHNO ID: [id number] Author: JOHANN MONTIEL MD Service: ? Author Type: Physician Type: Progress Notes Filed: 05/25/2024 22:38 Note Text: Attending Note I evaluated the patient and personally participated in the fink components. I agree with the resident's findings and plan as documented and have discussed the case and management of the patient's care with the resident. I agree with the fink elements of the history. I agree with the fink elements of the physical exam. I have reviewed the findings with the resident. I agree with the diagnosis of: Mood disorder (hcc) (primary encounter diagnosis) Elevated blood pressure reading without diagnosis of hypertension and agree with the resident's plan of care. See resident's note for further details. Johann Montiel, [facility]11-22-2024 Instructions* Patient Instructions* Anastasiia Joaquin MD - 05/23/2024 11:18 AM EST GET HELP If you have symptoms of clinical depression, you can get help by doing one or more of the followin. Please talk with your doctor. 2. If you are already in treatment, make sure you contact and update your doctor or therapist. 3. Review additional options for care based on patient or provider preference: Central/Multiple Locations: [facility]: [address] [place] [phone] Duglas Roland: [address] Michelle Bañuelos Aguilar - [phone] [facility], [facility].: [address] [place] MarcoSelect [facility] [place] - [phone] [facility]: 7800 [facility] - [phone] [facility] for Families [facility] Children: 4500 [facility] - [phone] (Medicaid only) [facility] Center for Geriatric Medicine: Multiple Locations - [phone] [facility] Department of Psychiatry & Psychology at [phone] (select Option 1) or [phone] (select Option 1) Connections: Multiple Locations - [phone] (Medicaid only) Fabrice [facility] Services [facility] - Multiple Locations - [phone] (Medicaid only) [facility] Multiple Locations - [phone] Psychological and Behavioral Consultants: Multiple Locations - [phone] Recovery Resources: Multiple Locations - [phone] [place] Locations: [facility]: [address] [facility] - [phone] [facility]: [address] [facility]. [place] - [phone] Juanis Webb PhD and Associates: [address] [facility] - [phone] [place] [id number] [facility] Dr[address] Flores - [phone] Em Calloway MD: [address] [facility] - [phone] [facility] [address] Jamari Bernal , [place] - [phone] [facility]: 992 [facility] - [phone] [facility] Counseling[facility], [address] [place] [address] - [phone] [place] Locations: Lynn Davis MD [facility] Inc: [address] Kayleen En[facility]c [facility] - [phone] Juanis Webb PhD and Associates: [address] Nasim [facility] - [phone] [facility] Family Services: [address] [facility] - [phone] [facility] Inc.: 3690 [facility] - [phone] [facility], [address], [facility] 320, [place] - [phone] [facility], [address] Ambrosio, Tim - [phone] [facility]: [address] Tim Lara. Willy - [phone] [place] Locations: [facility] Psychological and Counseling Services [facility] -[phone] [facility] L Jannette Enrique, [facility] - [phone] [facility] Psychiatry: 1 [facility] [place] - [phone] [facility]: 54[address] [facility] - [phone] [facility] - [address] [facility] [address] [place] - [phone] [place] Locations: [facility] MD Psychiatry, Sleep Medicine - 2420 [facility] [phone] or [phone] Fani Johnson MD - 2422 [facility] [phone] Psychological and Behavioral Consultants - NIMO Ashford, DCSW - [address] [phone] [facility] - 2801 "C" [facility] [phone] [facility] (NO Commercial Insurance accepted) - [address] [place] [phone] Counseling - Kal Schulz, PCC, LIDC - 29 [facility] [phone] Karmen Ruiz, CUPOLA MAN - 2408 [facility] [phone] June Mart, [facility] - [address] [place] [phone] All Ramos, PhD - [address] [place] [phone] Lali Sampson, [place]UP[place]A MAN - 850 [facility] [phone] Faviola Victoria, [facility] (No MedicareSt. [facility] 2242 [facility] Jamrai Ruiz [facility] [phone] Clarence Boyle, [facility] - [address] [place], [place] - [phone] Austin Randhawa, [facility] 4545 [facility] [phone] For additional resources and information please call or review the website: [email or web address] [email or web address] [email or web address]/ If you are feeling suicidal, please call [employer], , or the [employer] Suicide Hotline , Call 323, or go to your nearest emergency room documented in this encounterMetrohealth [facility] Center11-22-2024 NoteHNO ID: [id number] Author: ANASTASIIA JOAQUIN MD Service: ? Author Type: Resident Type: Progress Notes Filed: 05/23/2024 19:33 Note Text: Anastasiia Joaquin MD [facility] Family Medicine [address] [place] [address] [employer]oring Machine Set Up [employer] [facility] / [address] [place], [place] [address] Visit Date: May 23, 2024 Name: Mindy Faulkner Date of : 1980 MRN/E #: [id number] Chief Complaint: Patient presents with: Establish Care: RT side arm, breast, and leg w/o injury x 1 month Patient has hidradenitis thinks pain is associated with disorder Subjective Mindy Faulkner is a 43 year old female here for a new patient visit to establish care and also for mood concerns Previously received care at [facility] 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 Hidradenitis suppurativa - Says she formally had surgery however it has recurred - She has pain in this region, which is along the right very lateral chest wall, a portion of the breast and the right upper abdomen -Painful and bothersome, however feels she can be seen in 2 weeks to rediscuss this given time limit today Mood -sad, depressed, angry because she is going through a lot right now -doesn't want to be around people -Feels isolated -these feelings have been going on for more than a year - States she has nobody for support, does have 5 siblings however they do not keep in touch -Lost her mom 1 year ago and this is a difficult time of year - Also recently had conflict with a friend that is triggering some stress -sometimes feels like she doesn't want to be here anymore, however denies having any plan to harm herself and clearly/adamantly states she would never harm herself -formerly saw [facility] - Dr. Corey, on medicine that "altered her mind" and she stopped going - Initially mentioned she feels uncertain if she would harm others, so remainder of visit documented below completed with Dr. Montiel -When asked about harming others, she clarified and states she would only ever harm someone else if they were trying to harm her, feels certain she would never intentionally harm or kill anybody else -Believes in a higher power, believes in energies. 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 (Patient not taking: Reported on 05/23/2024) amoxicillin (AMOXIL) 875 mg tablet Take 875 mg by mouth twice daily. (Patient not taking: Reported on 05/23/2024) amitriptyline (ELAVIL) 25 mg tablet Take 1 tablet by mouth daily at bedtime. (Patient not taking: Reported on 05/23/2024) insulin glargine (LANTUS) 100 unit/mL injection insulin glargine LANTUS 100 UNIT/ML SOLN INSULIN GLARGINE [id number] Pierce Pemberton MD 08-26-2013 [facility] ([id number]) (Patient not taking: Reported on 05/23/2024) L. acidophilus-L. rhamnosus 15 billion cell cap Take 1 capsule by mouth once daily. FLORAJEN WOMEN. If on antibiotic, take at least 1-2 hours before or after antibiotic. KEEP REFRIGERATED (Patient not taking: Reported on 05/23/2024) cholecalciferol, Vitamin D3, (VITAMIN D3) 1,250 mcg (50,000 unit) cap capsule Take 1 capsule by mouth one time a week. (Patient not taking: Reported on 05/23/2024) lisinopril (ZESTRIL, PRINIVIL) 5 mg tablet Take 1 tablet by mouth once daily. (Patient not taking: Reported on 05/23/2024) blood sugar diagnostic (BLOOD GLUCOSE TEST) test strip Test blood sugar(s) 4 times daily. Dx: Type 2 DM - Uncontrolled E11.65 Insulin: Yes (Patient not taking: Reported on 05/23/2024) lancets (FREESTYLE LANCETS) 28 gauge misc Test blood sugar(s) 4 times daily. Dx: Type 2 DM - Controlled E11.9 Insulin: Yes (Patient not taking: Reported on 05/23/2024) doxycycline monohydrate (MONODOX) 100 mg capsule Take 1 capsule by mouth twice daily. (Patient not taking: Reported on 12/29/2019) metFORMIN (GLUCOPHAGE) 1,000 mg tablet Take 1 tablet by mouth t (more content not included)...[facility]11-22-[facility] History of Present illness Narrative* Anastasiia Joaquin MD - 05/23/2024 11:05 AM EST Images from the original note were not included. 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 Hidradenitis suppurativa - Says she formally had surgery however it has recurred - She has pain in this region, which is along the right very lateral chest wall, a portion of the breast and the right upper abdomen -Painful and bothersome, however feels she can be seen in 2 weeks to rediscuss this given time limit today Mood -sad, depressed, angry because she is going through a lot right now -doesn't want to be around people -Feels isolated -these feelings have been going on for more than a year - States she has nobody for support, does have 5 siblings however they do not keep in touch -Lost her mom 1 year ago and this is a difficult time of year - Also recently had conflict with a friend that is triggering some stress -sometimes feels like she doesn't want to be here anymore, however denies having any plan to harm herself and clearly/adamantly states she would never harm herself -formerly saw [facility] - Dr. Corey, on medicine that "altered her mind" and she stopped going - Initially mentioned she feels uncertain if she would harm others, so remainder of visit documented below completed with Dr. Montiel -When asked about harming others, she clarified and states she would only ever harm someone else ifthey were trying to harm her, feels certain she would never intentionally harm or kill anybody else -Believes in a higher power, believes in energies. 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 (Patient not taking: Reported on 05/23/2024) amoxicillin (AMOXIL) 875 mg tablet Take 875 mg by mouth twice daily. (Patient not taking: Reported on 05/23/2024) amitriptyline (ELAVIL) 25 mg tablet Take 1 tablet by mouth daily at bedtime. (Patient not taking: Reported on 05/23/2024) insulin glargine (LANTUS) 100 unit/mL injection insulin glargine LANTUS 100 UNIT/ML SOLN INSULIN GLARGINE [id number] Pierce Pemberton MD 08-26-2013 [facility] ([id number]) (Patient not taking: Reported on 05/23/2024) L. acidophilus-L. rhamnosus 15 billion cell cap Take 1 capsule by mouth once daily. FLORAJEN WOMEN.If on antibiotic, take at least 1-2 hours before or after antibiotic. KEEP REFRIGERATED (Patient not taking: Reported on 05/23/2024) cholecalciferol, Vitamin D3, (VITAMIN D3) 1,250 mcg (50,000 unit) cap capsule Take 1 capsule by mouth one time a week. (Patient not taking: Reported on 05/23/2024) lisinopril (ZESTRIL, PRINIVIL) 5 mg tablet Take 1 tablet by mouth once daily. (Patient not taking: Reported on 05/23/2024) blood sugar diagnostic (BLOOD GLUCOSE TEST) test strip Test blood sugar(s) 4 times daily. Dx: Type 2 DM - Uncontrolled E11.65 Insulin: Yes (Patient not taking: Reported on 05/23/2024) lancets (FREESTYLE LANCETS) 28 gauge misc Test blood sugar(s) 4 times daily. Dx: Type 2 DM - Controlled E11.9 Insulin: Yes (Patient not taking: Reported on 05/23/2024) doxycycline monohydrate (MONODOX) 100 mg capsule Take 1 capsule by mouth twice daily. (Patient not taking: Reported on 12/29/2019) metFORMIN (GLUCOPHAGE) 1,000 mg tablet Take 1 tablet by mouth twice daily with meals. (Patient not taking: Reported on 05/23/2024) insulin glargine (LANTUS SOLOSTAR, BASAGLAR KWIKPEN) 100 unit/mL (3 mL) inpn Inject 13 Units subcutaneously twice daily. Lancets lancets Test blood sugar(s) 4 times daily. Dx: Type 2 DM - Uncontrolled E11.65 Insulin: Yes(Patient not taking: Reported on 05/23/2024) Blood-Glucose Meter (FREESTYLE LITE METER) monitoring kit Freestyle LITE Meter Kit - Dx: Type 2 DM - Controlled E11.9 (Patient not taking: Reported on 05/23/2024) No current facility-administered medications for this visit. Objective 05/23/24 1049 BP: 170/98 Pulse: 99 Resp: 18 Temp: 36.7 C (98 F) TempSrc: Temporal SpO2: 100% Weight: 139 lb 9.6 oz (63.3 kg) Body mass index is 23.96 kg/m . Physical Exam Vitals reviewed. Constitutional: Comments: 43 year-old adult female, not disheveled, dressed appropriately HENT: Mouth/Throat: Mouth: Mucous membranes are moist. Eyes: Extraocular Movements: Extraocular movements intact. Cardiovascular: Rate and Rhythm: Normal rate and regular rhythm. Heart sounds: Normal heart sounds. No murmur heard. Pulmonary: Effort: Pulmonary effort is normal. No respiratory distress. Breath sounds: Normal breath sounds. No wheezing. Musculoskeletal: Right lower leg: No edema. Left lower leg: No edema. Skin: Comments: Tender nodular area on upper lateral right chest wall and upper lateral right abdomen without exudate/drainage Did not do any sensitive exam today of the axillary region lateral to right breast that she says isalso affected by HS; deferred to follow up visit Psychiatric: Attention and Perception: Attention normal. Mood and Affect: Mood is depressed. Affect is labile, angry and tearful. Speech: She is communicative. Speech is not rapid and pressured or tangential. Behavior: Behavior is not aggressive. Thought Content: Thought content does not include homicidal or suicidal plan. Comments: Describes mood as angry, depressed Affect mostly tearful, but then would be mildly angry and then normal briefly before tearful again.Congruent with described mood. Nondisheveled appearance No active paranoia Does endorse former hallucination, not actively PHQ-9 12/14/2016 05/23/2024 PHQ-9 Scores Little interest or pleasure in doing things: Not at all More than half the days Feeling down, depressed, or hopeless: Not at all More than half the days Trouble falling or staying asleep, or sleeping too much - More than half the days Feeling tired or having little energy - More than half the days Poor appetite or overeating - More than half the days Feeling bad about yourself - or that you are a failure or have let yourself or your family down - More than half the days Trouble concentrating on things, such as reading the newspaper or watching television - More than half the days Moving or speaking so slowly that other people could have noticed. Or the opposite - being so fidgety or restless that you have been moving around a lot more than usual - More than half the days Thoughts that you would be better off , or of hurting yourself in some way - Not at all PHQ-9 Score - 16 Details KELLEN-7 05/23/2024 KELLEN-7 All Questions Feeling nervous, anxious, or on edge Nearly Everyday Not being able to stop or control worrying Nearly Everyday Worrying too much about different things Nearly Everyday Trouble relaxing Nearly Everyday Being so restless that it is hard to sit still Nearly Everyday Becoming easily annoyed or irritable Nearly Everyday Feeling afraid, as if something awful might happen Nearly Everyday KELLEN-7 Score 21 Details 05/23/2024 NI CSSR FU Suicide Risk (ED/IP Initial Screening): Low Risk Assessment / Plan Mindy was seen today for establish care. Diagnoses and all orders for this visit: Mood disorder (HCC) - CONSULT TO PRIMARY CARE BEHAVIORAL HEALTH ADULT - Ms. Mindy Faulkner presented in distress today. Pre-exam screening of PHQ-9 and KELLEN-7 with nurse were both elevated and concerning to prioritize discussion today around mood. CSSR was completed; answers to questions 1 & 2 were yes, and answer to question 6 was no indicating low risk. Patient was adamant she has no active suicidal or homicidal plans. She did endorse concern for hallucination, however she also stated awareness the events of her hallucinations may not be occurring in the physical world. She appears that she can care for herself and is living independently. 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 Areas that place her at risk for worsening of symptoms include social isolation, loss of a loved one (her mother), recent disagreement with a bestfriend, and stress that her dad has dementia. Today, we focused on ensuring she was safe to return home and follow up outpatient with counseling. - Recommended counseling and psychiatry evaluation- referral given - Return in 2 weeks for HS - List of care locations for depression and psychiatry help was given in after visit summary - Emphasized she can go to an ED if she ever feels unsafe -will provide [phone] number for suicide hotline Elevated BP without diagnosis of Hypertension: -likely in part due to stress - address at future visit Discussed the above with the patient using shared decision-making. The patient voiced understanding and agreed with the plan. Return in about 2 weeks (around 06/06/2024), or Hidradenitis suppurativa - having lots of pain. Anastasiia Joaquin MD Family Medicine, PGY-I [facility] Date: May 23, 2024 Time: 6:56 PM documented in this encounter[facility] History of Present illness Narrative* Evette Rivera RN - 07/12/2022 2:48 PM EST Patient here with sister. Requesting test. States her last menstrual period was June 06 and then she had some spotting from July 04 to July 07. test was done and it was negative. I did discuss patient's diabetes with her and the fact that she has not followed up with Dr. Bradshaw. She states that she has not seen a doctor for her diabetes in about 3 years. She states she took her self off insulin about 2 years ago because she does not think that she has diabetes. She states her neuropathy has gotten much worse. I called Dr. Bradshaw's office and patient is scheduled for tomorrow to be seen by Dr. Bradshaw and also schedule her for an 8 new annual appointment with Opal Lyons in about 2 weeks.Evette Rivera RN documented in this encounterMet[facility]12-[facility] Hospital Discharge instructions Additional Instructions Apply ice to the lower back 6-10 times a day for the next 3 to 5 days. Avoid activity that causes you increased painSelect [facility] Work Phone: [phone]) 483-484204-19-2022 History of Present illness Narrative* Janeth Low APRN.CNP - 10/18/2021 5:58 PM EDT Orders placed. Please help schedule. Janeth Low APRN.CNP * Kolby Fisher LPN - 10/14/2021 4:23 PM EDT POPULATION HEALTH NAVIGATION OUTREACH Action/FYI Pt ANAIS 07/10/2019. Pt is overdue for 40min Annual appt and labs. Labs pending. Please review and advise. Routed to scheduling for appt. Pt identified by name and : NO Outreach Outcome/Action Chart routed to PCP/Chart routed to scheduling for appt Reason for Outreach Care Gap or Scheduling/Wellness visits Payer: Payor: [employer] MED[employer] / Plan: [employer] MED[employer] / Product Type: Medicaid / Health Maintenance items due: COVID-19 VACCINE(1) Never done HEPATITIS C SCREENING Never done HIV SCREENING Never done DTAP,TDAP,TD(1 - Tdap) Never done DEPRESSION SCREENING due on 12/14/2017 DILATED RETINAL EXAM due on 04/10/2018 HBA1C due on 09/22/2019 DIABETIC FOOT EXAM due on 02/08/2020 LDL CHOLESTEROL due on 06/23/2020 URINE ALBUMIN:CREATININE RATIO due on 07/10/2020 ANNUAL PCP TEAM CHRONIC DISEASE VISIT due on 07/10/2020 MAMMOGRAM due on 07/14/2020 PAP TESTING due on 12/27/2021 HPV TESTING due on 12/27/2021 Message Sent to Practice: Yes Navigation Signature: Kolby Fisher LPN October 14, 2021 4:24 PM documented in this encounterMet[facility] History of Past illness Narrative* Problem Noted Date Resolved Date NO SHOW 05/01/2013 07/06/2014 documented as of this encounter (statuses as of 10/26/2021) [facility] History of Past illness Narrative* Problem Noted Date Resolved Date NO SHOW 05/01/2013 07/06/2014 documented as of this encounter (statuses as of 01/02/2022) [facility] History of Past illness Narrative* Problem Noted Date Resolved Date NO SHOW 05/01/2013 07/06/2014 documented as of this encounter (statuses as of 07/12/2022) [facility] note* Diagnosis Type 2 diabetes mellitus with 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, 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 Screening for hyperlipidemia Screening for lipoid disorders documented in this encounter [facility] note* Diagnosis Encounter for screening mammogram for breast cancer documented in this encounter [facility] noteNo assessment information availableWKettering Health Pre[facility] Work Phone: Evaluation note* Diagnosis Missed menses- Primary Absence of menstruation documented in this encounter [facility] note* Diagnosis Mood disorder (HCC)- Primary Unspecified episodic mood disorder Elevated blood pressure reading without diagnosis of hypertension documented in this encounter [facility] note* Diagnosis Mood disorder (HCC)- Primary Unspecified episodic mood disorder documented in this encounter [facility] note* Diagnosis Needs assistance with community resources- [facility] Additional Instructions Keep your appointment with primary care physician.[facility] Work Phone: Reason for referral (narrative)* Diagnostic Procedure Only (Routine) - Pending Review Specialty Diagnoses / Procedures Referred By Sravani brenner Referred To Contact [facility] Diagnoses Encounter for screening mammogram for breast cancer Procedures KRISTI SCREENING SCREENING MAMMOGRAPHY BI 2-VIEW BREAST INC CAD Joey Bradshaw MD [address] [place] [address] [facility] [address] [place] [address] Referral ID Status Reason Start Date Expiration Date Visits Requested Visits Authorized [id number] Pending Review Auto-Generat ed Referral 12/28/2021 01/27/2023 1 1 [facility] for referral (narrative)No reason for referral information availableWKettering Health [facility] Work Phone: Summary Purpose Family History No Family History Records Found Relationship Condition Age at Onset Recorded Date/T ivanna Not Specified Diabetes mellitus Unknown Advance Directives No Advanced Directives Records FoundDocuments on File Type Date Recorded 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 Advance Directive(s) 03/20/2019 9:08 AM Advance Directive(s) 08/01/2018 8:56 AM Documents on File Type Date Recorded 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 No September 23, 2024 1:18pm Advance Directives No May 11:47pm Chief Complaint and Reason for Visit Chief Complaint GENERAL Chief Complaint LOWER EXTREMITY Chief Complaint Admit Date SPASMS September 23, 2024 1:0 4pm Reason for Referral Specialty Diagnoses / Procedures Referred By Sravani brenner Referred To Contact Diagnoses Mood disorder (HCC) Procedures CONSULT TO PRIMARY CARE BEHAVIORAL HEALTH ADULT OFFICE/OUTPATIENT [facility] 60 MINUTES Russell Ortega MD [address] [place] [address] Referral ID Status Reason Start Date Expiration Date Visits Requested Visits Authorized [id number] Pending Review PCP Requested Referral 4 08/21/2024 1 1 Specialty Diagnoses / Procedures Referred By Contac t Referred To Contact Diagnoses Mood disorder (HCC) Procedures CONSULT TO [facility] (AG IM[facility]/CFM ONLY) Johann Montiel MD [address] [place] [address] Referral ID Status Reason Start Date Expiration Date Visits Requested Visits Authorized [id number] Ref Not Required PCP Requested Referral 4 08/25/2024 1 1 Additional Source Comments INFORMATION SOURCE (unrecogn ized section and content) DATE CREATED AUTHOR 08/19/2018 [facility] DATE CREATED AUTHOR AUTHOR'S ORGANIZ ATION 07/14/2024 [facility] DATE CREATED AUTHOR AUTHOR'S ORGANIZ ATION 09/30/[address] [facility] DATE CREATED AUTHOR AUTHOR'S ORGANIZ ATION 04/14/2025 [facility] Source Comments (unrecognize d section and content) In the event this informatio n is protected by the Federal Confidentiality of Alcohol and Drug Abuse Patient Records regulations: The Federal rules restrict any use of the information to criminally investigate or prosecute any alcohol or drug abuse patient.[facility] CenterIn the event this information is protected by the Federal Confidentiality of Alcohol and Drug Abuse Patient Records regulations: The Federal rules restrict any use of the information to criminally investigate or prosecute any alcohol or drug abuse patient.[facility] CenterIn the event this information is protected by the Federal Confidentiality of Alcohol and Drug Abuse Patient Records regulations: The Federal rules restrict any use of the information to criminally investigate or prosecute any alcohol or drug abuse patient.[facility] CenterIn the event this information is protected by the Federal Confidentiality of Alcohol and Drug Abuse Patient Records regulations: The Federal rules restrict any use of the information to criminally investigate or prosecute any alcohol or drug abuse patient.[facility] CenterIn the event this information is protected by the Federal Confidentiality of Alcohol and Drug Abuse Patient Records regulations: The Federal rules restrict any use of the information to criminally investigate or prosecute any alcohol or drug abuse patient.[facility] CenterIn the event this information is protected by the Federal Confidentiality of Alcohol and Drug Abuse Patient Records regulations: The Federal rules restrict any use of the information to criminally investigate or prosecute any alcohol or drug abuse patient.[facility] CenterIn the event this information is protected by the Federal Confidentiality of Alcohol and Drug Abuse Patient Records regulations: The Federal rules restrict any use of the information to criminally investigate or prosecute any alcohol or drug abuse patient.[facility] CenterIn the event this information is protected by the Federal Confidentiality of Alcohol and Drug Abuse Patient Records regulations: The Federal rules restrict any use of the information to criminally investigate or prosecute any alcohol or drug abuse patient.[facility] Reason for Visit (unrecogniz ed section and content) Reason Onset Date Comments PHMA/Care Gap Outreach 10/14/2021 Reason Comments requests test Reason Comments Establish Care RT side arm, breast, and leg w/o injury x 1 month Patient has hidradenitis thinks pain is associated with disorder Reason Comments Appointment Reason Onset Date Comments ED outreach 09/24/2024 09/23/24 [facility] Care Teams (unrecognized sec tion and content) Leach Runner Relationship Specialty Start Date End Date Joey Bradshaw MD [address], [place] [id number] PCP - General Family Practice 09/24/14 Leach Runner Relationship Specialty Start Date End Date Joey Bradshaw MD [address], [place] [id number] PCP - General Family Practice 09/24/14 Leach Runner Relationship Specialty Start Date End Date Joey Bradshaw MD [address] [place] [address] PCP - General Family Medicine 09/24/14 Team Status: Active Member Role Status Dates Dr. Joey Bradshaw MD Family Provider Active Dr. Joey Bradshaw MD Primary Care Provider Active Team Status: Inactive Member Role Status Dates Dr. Joey Bradshaw MD Primary Care Provider Active Dr. Olegario Hastings MD Emergency Provider Active Leach Runner Relationship Specialty Start Date End Date Riya Silverio DO [address] [place], [place] [id number] PCP - General Family Medicine 05/23/24 Anastasiia Joaquin MD [address] [place] [address] PCP Resident Family Medicine 05/23/24 Leach Runner Relationship Specialty Start Date End Date Riya Silverio DO [address] [place] [address] PCP - General Family Medicine 05/23/24 Anastasiia Joaquin MD [address] [place] [address] PCP Resident Family Medicine 05/23/24 Leach Runner Relationship Specialty Start Date End Date Riya Silverio DO [address] [place] [address] PCP - General Family Medicine 05/23/24 Anastasiia Joaquin MD [address] [place], [place] [phone] PCP Resident Family Medicine 05/23/24 Leach Runner Relationship Specialty Start Date End Date Riya Silverio DO [address] [place] [id number] PCP - General Family Medicine 05/23/24 Anastasiia Joaquin MD [address] [place], [place] [phone] PCP Resident Family Medicine 05/23/24 Leach Runner Relationship Specialty Start Date End Date Riya Silverio DO [address] [place], [place] [id number] PCP - General Family Medicine 05/23/24 Anastasiia Joaquin MD [address] [place], [place] [phone] PCP Resident Family Medicine 05/23/24 Team Status: Active Member Role Status Dates No Primary Care Physician Primary Care Provider Active Team Status: Inactive Member Role Status Dates No Primary Care Physician Primary Care Provider Active Start: September 23, 2024 End: September 23, 2024 Dr. Jose Garza , Emergency Provider Active S tart: September 23, 2024 End: September 23, 2024 Goals (unrecognized section and content) Goals may be documented in a n alternate sectionGoals may be documented in an alternate sectionGoals may be documented in an alternate section FOR RECORDS PERTAINING TO PATIENTS WHO ARE OR HAVE BEEN ENROLLED IN A CHEMICAL DEPENDENCY/SUBSTANCEABUSE PROGRAM, SOME INFORMATION MAY BE OMITTED. This clinical summary was aggregated from multiple sources. Caution should be exercised in using it in the provision of clinical care. This summary normalizes information from multiple sources, and as a consequence, information in this document may materially change the coding, format and clinical context of patient data. In addition, data may be omitted in some cases. CLINICAL DECISIONS SHOULD BE BASED ON THE PRIMARY CLINICAL RECORDS. [employer] provides no warranty or guarantee of the accuracy or completeness of information in this document.
[2025-05-05 07:00] LABS: Troponin T High Sensitivity 121 ng/L (<=14)
--- NOTE | 2025-05-05 07:58 | EDS_ITS ---
HPI History of Present Illness Chief Complaint: Chest Pain Informant: patient Narrative Narrative: Patient is a 44-year-old female with past medical history of type 2 diabetes. She states that she was previously on insulin and pills to help control this but took herself off the medication and try to control her "naturally". She states that over the past 3 to 4 days she has been having shortness of breath sensation and in the last roughly 24 hours has also developed generalized chest discomfort. She denies any recent travel surgery or history of DVT/PE. She does admit to smoking but denies any history of COPD or emphysema. She states that she does not have a history of congestive heart failure. She denies any nausea vomiting or diaphoresis associate with chest discomfort but as the shortness of breath sensation has been persistent and now she has associated chest pain she presents for evaluation [facility] Medical History Wears dentures Wears glasses Anxiety Diabetes Kidney stones Anemia Back pain Injury of back Migraine headache Injury of head and neck Loss of consciousness Gastric reflux Smoker Leg cramps History of pain when walking History of edema Hx of hidradenitis suppurativa Personal history of Methicillin resistant Staphylococcus aureus infection Right axillary hidradenitis Arthritis Smoker DM type 2 (diabetes mellitus, type 2) Home Medications Medication Instructions Recorded Last Taken Type NK 05/05/25 Unknown History Allergy/AdvReac Type Severity Reaction Status Date / Time hydrocodone bitartrate (From AdvReac Vomiting Verified 05/05/25 05:50 Vicodin) hydromorphone HCl (From AdvReac Other Verified 05/05/25 05:50 Dilaudid) tramadol AdvReac Other Verified 05/05/25 05:50 Family History Other Diabetes Surgical History Hx of tooth extraction History of cystoscopy Hidradenitis Social History household members: none Smoking Status: Current every day smoker tobacco type: cigarettes second hand exposure: Yes alcohol intake: former substance use type: marijuana additional social history: Does Not Take Aspirin Does Take Ibuprofen As Needed ROS ROS ED Constitutional Constitutional ED: Denies chills or fever(s) Eyes Eyes: Denies change in vision ENT ENT ED: Denies rhinorrhea or sore throat Cardiovascular Cardiovascular: Reports chest pain and racing heartbeat; Denies palpitations Respiratory/Chest Respiratory/Chest: Reports cough, dyspnea and dyspnea on exertion Gastrointestinal Gastrointestinal: Denies abdominal pain, diarrhea, nausea or vomiting Genitourinary Genitourinary ED: Denies dysuria Musculoskeletal Musculoskeletal: Reports myalgias Integumentary Denies rash Neurologic Neurologic: Denies headache(s) Hematologic/Lymphatic Hematologic/Lymphatic: Denies easy bleeding or easy bruising EXAM Physical Exam Const Vital Signs: 05/05/25 05:43 05/05/25 06:17 05/05/25 06:30 Temperature 98 F Temperature Source Oral Pulse Rate 121 H 106 H 112 H Respiratory Rate 20 H 16 20 H Blood Pressure 188/109 H 171/99 H 142/90 H Blood Pressure Mean 135 123 107 Pulse Ox 99 100 98 Oxygen Delivery Method Room Air Room Air 05/05/25 07:00 05/05/25 07:15 05/05/25 08:20 Temperature Temperature Source Pulse Rate 116 H 110 H 113 H Respiratory Rate 21 H 22 H 21 H Blood Pressure 160/107 H 170/109 H 173/103 H Blood Pressure Mean 124 129 126 Pulse Ox 100 100 100 Oxygen Delivery Method Room Air Room Air Room Air Positive well nourished and well developed General Appearance ED: well developed; Negative for pallor HEENT HEENT Narrative: Normocephalic atraumatic No tongue or lip swelling no oral lesions no airway edema or compromise; no secondary findings in the posterior pharynx to suggest infection Eyes PERRL and EOMs intact bilaterally General Eye ED: Negative for scleral icterus Neck supple and no JVD Chest Wall Chest Narrative: There is generalized pain on palpation of the anterior chest wall without bony deformity or subcutaneous emphysema Resp Resp Narrative: Patient is slightly tachypneic but otherwise there is no nasal flaring retractions or accessory muscle use or stridor Breath sounds are diminished throughout with crackles in the bilateral bases. Cardio regular rhythm Rate: tachycardic and other Other Details: Tachycardic rate with regular rhythm Radial and carotid pulses are equal and symmetric GI normal to inspection, nondistended, normoactive bowel sounds, non-tender, non- distended and no masses GI Narrative: No voluntary guarding or rigidity or pulsatile mass No fluid wave noted Auscultation: normoactive bowel sounds Palpation: soft Extremity normal to inspection Extremity Narrative: No asymmetric edema no pitting edema negative Homans' sign bilaterally Neuro oriented x3, CN's II-XII intact bilaterally and no sensory deficits noted Sensorium / Orientation: alert Motor Exam: strength 5/5 throughout Psych mental status grossly normal Skin no rashes or lesions noted General Skin Exam: Negative for jaundice or pallor MDM MDM MDM Narrative Medical decision making narrative: Patient arrived to the ER hypertensive and tachycardic but was satting 98 to 100% on room air and had no overt signs of respiratory distress. With her rep ort of multiple days of shortness of breath now progressing to chest discomfort there is concern for infection such as pneumonia or potential spontaneous pneumothorax. The patient is tachycardic upon arrival and denies any history of DVT/PE but with the reported symptoms and the tachycardia there is also concern for pulmonary embolus as a cause of her symptoms and therefore D-dimer was obtained. The D-dimer was elevated at 3.43 so she was sent for a CTA. This revealed no PE or dissection but did show pulmonary nodules consistent with her history of smoke and pleural effusions and findings consistent with heart failure. There is concern for underlying infiltrate but she does not have a fever her white count is normal there is no elevation to the absolute neutrophil count and therefore I have low concern that this is infectious in nature. The patient's creatinine has also elevated from 0.95 in August of this year to 2.42 today indicating acute kidney injury. Her proBNP is elevated at 17,000 which would also correlate with congestive heart failure and the BENNIE. The patient's troponin is elevated at 121 but her EKG does not reveal any kind of cardiac dysrhythmia or ischemic change. Because of the elevated troponin I did discuss the case with spray gun sizer on-call Dr. Polanco. He states that as the patient's EKG is not ischemic and she has multiple reasons for the elevation to the troponin such as tachycardia hypertension and BENNIE that he does not feel need for emergent cardiac intervention and recommends controlling her diabetes hypertension and tachycardia and obtaining an echo to further assess her cardiac function. With the patient's history of diabetes which she stopped taking her medication for there is concern that her symptoms could be stemming from diabetic ketoacidosis. The patient serum bicarb is low at 17 but her anion gap is normal and her beta hydroxybutyrate is normal at 0.2 going against DKA. Initially IV fluids were ordered as she has no outward findings of heart failure and no history of it and she reported systemic pain as well so Toradol was ordered as previous chart review revealed no sign of kidney issues. Once the x- ray was obtained to the IV fluids were stopped secondary to findings of volume overload. I also initially ordered captopril and Lasix based on the chest x-ray and proBNP but with the elevation to her creatinine these were not given. The patient is not in respiratory distress at this time as she is satting 98 to 100% on room air and has no increased work of breathing. However because of the persistent hypertension as well as acute kidney injury and findings of heart failure she will need admitted to the hospital for continued evaluation and treatment. Secondary to this the case was discussed with hospitalist who agrees to accept the patient for continued care. History & Record Review Discussion w/independent historian: Patient Lab Data Attestation: I reviewed the patient's lab results. Labs: Laboratory Results - last 24 hr 05/05/25 05:58 WBC 8.1 RBC 3.67 L Hgb 10.8 L Hct 31.3 L MCV 85.3 MCH 29.4 MCHC 34.5 RDW Std Deviation 40.3 RDW Coeff of Giselle 13.1 Plt Count 199 MPV 11.7 Immature Gran % (Auto) 0.400 Neut % (Auto) 59.8 Lymph % (Auto) 27.4 [place] % (Auto) 7.8 Eos % (Auto) 3.7 Baso % (Auto) 0.9 Absolute Neuts (auto) 4.8 Absolute Lymphs (auto) 2.21 Nucleated RBC % 0 D-Dimer Quant (PE/DVT) 3.43 H* Sodium 136 Potassium 3.8 Chloride 110 H Carbon Dioxide 17.0 L Anion Gap 9 BUN 30 H Creatinine 2.42 H Estim Creat Clear Calc 28.38 L Est GFR (MDRD) Non-Af 25 L BUN/Creatinine Ratio 12.6 Glucose 189 H Calcium 7.7 Magnesium 2.2 Troponin T High Sens 121 H* [place] [address] H b-Hydroxybutyric mmol/L 0.2 Radiography Diagnostic Testing: Clinical Impression(s) from Imaging Studies Chest X-Ray 05/05/25 06:25 IMPRESSION: Small bilateral pleural effusions with infiltrative airspace opacities. Reading Location: [id number] Chest CTA 05/05/25 06:30 IMPRESSION: There is no visible pulmonary embolus. There are patchy interstitial and alveolar infiltrates. There is a 0.6 cm ground-glass nodular density in the right upper lung, image 198/253. There is a 0.5 cm ground-glass nodule in the right mid lung, image 121/253. There is a 0.6 cm ground-glass nodular density in the left mid lung, image 168/253. There is a 0.4 cm solid nodular density in the periphery of the upper portion of the left lower lobe, image 188/253. Follow-up is recommended. There is a 2.3 cm right pleural effusion. There is a 2.1 cm left pleural effusion. A 0.2 cm nonobstructing stone is noted in the left renal midpole. Reading Location: [facility] Chest x-ray as interpreted by the emergency medicine physician reveals small bilateral pleural effusions with pulmonary vascular congestion consistent with congestive heart failure Management Discussion w/another healthcare provider: Hospitalist and Chair Mender Discharge Plan Dx/Rx/DC Orders Clinical Impression: Acute kidney injury, DM type 2 (diabetes mellitus, type 2), Hypertension, Congestive heart failure (CHF), Elevated troponin Disposition Disposition: [facility]
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
[2025-05-05 08:58] LABS: Troponin T High Sens 2 HR 129 ng/L (<=14)
--- NOTE | 2025-05-05 09:18 | ECHOD_ITS ---
Reason For Study Reason For Study: Chest Pain Procedure This was a 2D Doppler, Color Flow transthoracic echocardiogram. Exam performed portable in patient room. Left Ventricle Mild to moderate left ventricular concentric hypertrophy. Normal LV size. Severe LV systolic dysfunction with global hypokinesis. Estimated LVEF 35%. Stage I diastolic dysfunction. Right Ventricle Normal right ventricle. Atria The left and right atria are normal. Mitral Valve Moderate (2+) mitral valve insufficiency. Tricuspid Valve Trivial tricuspid valve insufficiency. Unable to estimate RV systolic pressure due to insufficient tricuspid regurgitant envelope. Aortic Valve Trisinus/trileaflet aortic valve. Pulmonic Valve The pulmonic valve is not well visualized. Great Vessels Normal sized aortic root. Pericardium/Pleural Trivial pericardial effusion. Moderate size left pleural effusion. MMode/2D Measurements & Calculations LVIDd: 4.3 cm IVSd: 1.2 cm Ao root diam: 3.1 cm LVIDs: 3.4 cm LVPWd: 1.4 cm RVDd: 3.1 cm FS: 21.8 % LAV(MOD-bp): 39.2 ml LVAd ap4: 29.8 cm2 SV(MOD-sp4): 33.2 ml LAV(MOD-bp) Indexed: 22.1 ml/m2 LVLd ap4: 7.7 cm SI(MOD-sp4): 18.7 ml/m2 LAV(MOD-sp2): 39.9 ml EDV(MOD-sp4): 93.3 ml LAV(MOD-sp4): 36.7 ml EDV(sp4-el): 97.1 ml LVAs ap4: 22.9 cm2 LVLs ap4: 7.3 cm ESV(MOD-sp4): 60.1 ml ESV(sp4-el): 61.0 ml EF(MOD-sp4): 35.6 % EF(sp4-el): 37.1 % SV(sp4-el): 36.1 ml LA A4 area: 13.4 cm2 LA dimension(2D): 3.5 cm RA A4 area: 8.9 cm2 TAPSE: 2.1 cm Time Measurements MV dec time: 0.07 sec Doppler Measurements & Calculations MV E max anders: 95.5 cm/sec Lat Peak E' Anders: 8.8 cm/sec Med Peak E' Anders: 10.7 cm/sec MV A max anders: 104.8 cm/sec E/E' lat: 10.9 E/E' med: 8.9 MV E/A: 0.91 MV V2 max: 122.5 cm/sec Ao V2 max: 85.0 cm/sec LV V1 max: 80.4 cm/sec MV max P.0 mmHg Ao max P.9 mmHg LV V1 max P.6 mmHg MV V2 mean: 75.0 cm/sec Ao V2 mean: 61.8 cm/sec LV V1 mean P.3 mmHg MV mean P.6 mmHg Ao mean P.7 mmHg LV V1 mean: 54.0 cm/sec MV V2 VTI: 20.9 cm Ao V2 VTI: 14.2 cm LV V1 VTI: 13.3 cm AV (velocity ratio): 0.93 MR max anders: 498.9 cm/sec PA V2 max: 90.3 cm/sec MR max P.6 mmHg ECHO/Echo Complete Interpretation Summary Mild to moderate left ventricular concentric hypertrophy. Normal LV size. Sever e LV systolic dysfunction with global hypokinesis. Estimated LVEF 35%. Stage I diastolic dysfunction. The left and right atria are normal. Moderate (2+) mitral valve insufficiency. Trivial pericardial effusion. Moderate size left pleural effusion. Ordering Physician: Mariam Murry Performed By: Kory Kenney RCS
--- NOTE | 2025-05-05 09:18 | US_ITS ---
PROCEDURE: KIDNEY AND BLADDER 05/05/2025 REASON FOR EXAM: KIDNEY FAILURE TECHNIQUE: Procedure Code: USKI Modality: US Procedure: KIDNEY AND BLADDER COMPARISON: None FINDINGS: The right kidney measures 12.9 x 4.8 x 4.7 cm and the left 11.5 x 5.9 x 5.4 cm. The renal cortex is normal in appearance on the right and left. There is no visible mass or cyst. There is no hydronephrosis. There is no visible renal stone. Bladder = 52 cc. The bladder wall thickness measures 0.4 cm with visible thickening of the lateral and posterior wall. The right and left ureters or ureteral jets are not visible. US/Kidney and Bladder IMPRESSION: The bladder wall thickness measures 0.4 cm with visible thickening of the later al and posterior wall. Consider direct visualization. There is no visible renal stone or hydronephrosis. Reading Location: [facility]
[2025-05-05 10:30] LABS: AST(SGOT) 27 U/L (<=31); Alanine Aminotransfer ALT/SGPT 20 U/L (<=34); Albumin, Serum 2.2 g/dL (3.5-5.0); Alkaline Phosphatase 96 U/L (35-104); Bilirubin, Direct < 0.08 mg/dL (0.00-0.30); CPK Total, Creatine Kinase 727 U/L (24-195); CRP < 3.00 mg/L (0.0-3.0); Cholesterol 278 mg/dL (<=200); Globulin 2.8 g/dL (2.2-4.2); Low Density Lipoprotein Calc. 157 mg/dL; Triglycerides 181 mg/dL; Very Low Density Lipoprotein 36 mg/dL (5-40); cholesterol:hdl ratio screen 3.11
[2025-05-05] MEDS: 0.9% Saline Lock 10 ML Syringe IV (10:42)
[2025-05-05 11:57] LABS: Mucous, Urine 0 SEEN /hpf (<or=2+)
[2025-05-05 12:02] LABS: Color, Urine Yellow (Yellow); Glucose, Dipstick 250 mg/dl (Normal); Ketone-Dipstick Negative (Negative); Leukocyte Esterase-Dipstick 25 /ul (Negative); Nitrite-Dipstick Negative (Negative); Occult Blood-Urine 150 /ul (Negative); Protein-Dipstick 500 mg/dl (Negative); Specific Gravity, Urine 1.015 (1.002-1.030); Urine Bilirubin Dipstick Negative (Negative)
--- NOTE | 2025-05-05 12:19 | PCM.CONS.R ---
Assessment & Plan Assessment/Plan (1) Acute kidney injury: PLAN: Baseline creatinine was normal earlier this year. Came in with a creatinine of 2.4. I would expect at least some proteinuria from diabetes. However she has microscopic hematuria. Will send for quantification. CT chest images reviewed, she has some nodular opacities, interstitial infiltrate pattern. There is also some pleural effusion. BNP is significantly high. Possible shortness of breath is cardiogenic but nephritic/nephrotic needs to be ruled out. Serologies have already been sent. Okay to give Lasix as needed. Currently looks comfortable breathing wade. Will follow-up. Extensive family history of autoimmune conditions. Specifically lupus. She has hidradenitis. Does not have erythema nodosum. Has not seen rheumatology recently. Currently not on any immunosuppressive therapy. Infection has not been taking any medications for the last 10 months or so. HPI Consult Data Date of Consult: 05/05/25 HPI Narrative Reason for Consultation: Acute renal failure HPI Narrative: MINDY GILLILAND, is a 44 F who presents to the hospital with shortness of breath. Nephrology on consultation in view of acute renal failure. She has known history of diabetes apparently since she was about 19 or 24 years of age. Earlier this year she decided that she will go all-natural, stopped taking most medications. Started having shortness of breath for the last few days, lower extremity edema for the last few weeks. Found to have renal failure, creatinine of 2.4. Last known creatinine from earlier this year was close to normal values. Past medical history significant for diabetes which was diagnosed when she was in the early 20s. Does not think she has any kidney disease from diabetes. No history of kidney stones, UTIs recently. Apparently was diagnosed with hidradenitis for the last 15 years or so. She was in a clinical trial at [facility] for it, continues to have symptoms from it. Currently not on any treatment for it. Extensive family history of autoimmune condition, specifically lupus. Apparently multiple family members on the father side have lupus had lung involvement even. She says urine has been cloudy, no obvious hematuria. No dysuria, frequency, urgency. Workup since admission creatinine of 2.4, urine analysis with proteinuria and hematuria. Renal ultrasound without any hydronephrosis. CT chest with nodular densities bilaterally, mild pleural effusions. Extensive interstitial infiltrates. BNP was significantly elevated. Chest x-ray with pulmonary edema pattern. Echocardiogram pending. [facility] Medical History Wears dentures Wears glasses Anxiety Diabetes Kidney stones Anemia Back pain Injury of back Migraine headache Injury of head and neck Loss of consciousness Gastric reflux Smoker Leg cramps History of pain when walking History of edema Hx of hidradenitis suppurativa Personal history of Methicillin resistant Staphylococcus aureus infection Right axillary hidradenitis Arthritis Smoker DM type 2 (diabetes mellitus, type 2) Home Medications Medication Instructions Recorded Last Taken Type NK 05/05/25 Unknown History Allergy/AdvReac Type Severity Reaction Status Date / Time hydrocodone bitartrate (From AdvReac Vomiting Verified 05/05/25 05:50 Vicodin) hydromorphone HCl (From AdvReac Other Verified 05/05/25 05:50 Dilaudid) tramadol AdvReac Other Verified 05/05/25 05:50 Family History Other Diabetes Surgical History Hx of tooth extraction History of cystoscopy Hidradenitis Social History household members: none Smoking Status: Current every day smoker tobacco type: cigars second hand exposure: Yes alcohol intake: former substance use type: marijuana additional social history: Does Not Take Aspirin Does Take Ibuprofen As Needed ROS ROS Narrative Negative except history Physical Exam Narrative Alert awake oriented x 3 no obvious distress no pallor no icterus no JVD s1s2 no murmurs lungs clear abdomen soft no organomegaly + edema Lab / Micro Data 05/05/25 05:58 05/05/25 05:58 Labs: Laboratory Results - last 24 hr 05/05/25 05:58: WBC 8.1, RBC 3.67 L, Hgb 10.8 L, Hct 31.3 L, MCV 85.3, MCH 29.4, MCHC 34.5, RDW Std Deviation 40.3, RDW Coeff of Giselle 13.1, Plt Count 199, MPV 11.7, Immature Gran % (Auto) 0.400, Neut % (Auto) 59.8, Lymph % (Auto) 27.4, [place] % (Auto) 7.8, Eos % (Auto) 3.7, Baso % (Auto) 0.9, Absolute Neuts (auto) 4.8, Absolute Lymphs (auto) 2.21, Nucleated RBC % 0, ESR 94 H, D-Dimer Quant (PE/DVT) 3.43 H*, Sodium 136, Potassium 3.8, Chloride 110 H, Carbon Dioxide 17.0 L, Anion Gap 9, BUN 30 H, Creatinine 2.42 H, Estim Creat Clear Calc 28.38 L, Est GFR (MDRD) Non-Af 25 L, BUN/Creatinine Ratio 12.6, Glucose 189 H, Calcium 7.7, Magnesium 2.2, Total Bilirubin < 0.15, Direct Bilirubin < 0.08, AST 27, ALT 20, Alkaline Phosphatase 96, Total Creatine Kinase 727 H, Troponin T High Sens 121 H*, C-React Prot Ext Range < 3.00, [place] [address] H, Total Protein 5.0 L, Albumin 2.2 L, Globulin 2.8, Triglycerides 181, Cholesterol 278 H, LDL Cholesterol, Calc 157, VLDL Cholesterol 36, HDL Cholesterol 90, Cholesterol/HDL Ratio 3.11, b-Hydroxybutyric mmol/L 0.2, TSH 2.910 05/05/25 08:20: Troponin T Hi Sens 2 Hr 129 H* 05/05/25 11:51: LISA-1 Antibody TNP, Sm (Cruz) Antibody TNP, CONVEYANCER Antibody TNP, Scl-70 Scleroderma Ab TNP, Antichromatin Antibodies TNP, Centromere B Antibody TNP Imaging Radiology Impression Chest X-Ray 05/05/25 06:25 IMPRESSION: Small bilateral pleural effusions with infiltrative airspace opacities. Reading Location: [place] [address] Chest CTA 05/05/25 06:30 IMPRESSION: There is no visible pulmonary embolus. There are patchy interstitial and alveolar infiltrates. There is a 0.6 cm ground-glass nodular density in the right upper lung, image 198/253. There is a 0.5 cm ground-glass nodule in the right mid lung, image 121/253. There is a 0.6 cm ground-glass nodular density in the left mid lung, image 168/253. There is a 0.4 cm solid nodular density in the periphery of the upper portion of the left lower lobe, image 188/253. Follow-up is recommended. There is a 2.3 cm right pleural effusion. There is a 2.1 cm left pleural effusion. A 0.2 cm nonobstructing stone is noted in the left renal midpole. Reading Location: [facility] Renal Ultrasound 05/05/25 09:18 IMPRESSION: The bladder wall thickness measures 0.4 cm with visible thickening of the lateral and posterior wall. Consider direct visualization. There is no visible renal stone or hydronephrosis. Reading [facility]
[2025-05-05 12:23] LABS: Red Blood Cells-Urine 0-5 SEEN /hpf (0-5); Squamous Epithelial Cells - UA 0-5 SEEN /hpf (5-10)
[2025-05-05 12:45] LABS: Creatinine, Urine (random) 33.70 mg/dL (28.00-217.00)
[2025-05-05 12:55] LABS: Osmolality, Urine 357 mOsm/KG
[2025-05-05 12:56] LABS: Protein, Urine (Random) > 600.0 mg/dL (0.0-12.0); Protein:Creat Ratio UNABLE TO CALCULATE mg/g CRE (0-200); Urea Nitrogen, Urine 201 mg/dL (NO RANGE EST.)
[2025-05-05 13:33] LABS: Barbiturate Urine NEGATIVE (< 200 ng/mL); Benzodiazepine Urine NEGATIVE (< 200 ng/mL); PCP Urine NEGATIVE (< 25 ng/mL); THC Urine PRESUMPTIVE POSITIVE (< 50 ng/mL)
--- NOTE | 2025-05-05 13:41 | CASEMGMT ---
Social Work SW spoke with the patient and completed a SDOH. The patient being very depressed and still grieving the loss of her mother in 2022. Patient reported she has been diagnosed with depression but does not take medication anymore because she does not like how is makes her feel. SW suggested patient start attending counseling and patient was open to this suggestion. Patient reported she does not have thoughts of killing or harming herself. She reported she does have thoughts of hitting someone else when they make her mad but not killing them. She reported this is not anyone in particular. She reported she has never assaulted anyone. Patient reported she likes to stay at home. SW provided the patient with counseling agencies resources, transportation- [employer] resources and food panties in the area. Patient reported she has the money to pay her rent but her [employer] account is not working. Patient plans on contacting [employer] or [employer] for assistance. Patient uses [id number] for medical appts. NIMO Pompa
--- NOTE | 2025-05-05 17:33 | PCM.HOSP.N ---
Hospitalist Note Patient admitted this a.m., see HPI. Results were coming back progressively throughout the day and patient had been given a dose of IV Lasix pending further workup. Of note patient had adamantly denied any drug use however patient found to be amphetamine and fentanyl positive in UDS. Notified that patient wanted to go check on her father and was insisting on leaving AMA. I called and spoke with RN, and patient already getting ready. Patient already gone/off status board before I was able to go over and speak with her. Pt left AGAINST MEDICAL ADVICE
[2025-05-06 10:08] LABS: ANTINUCLEAR ANTIBODIES DIRECT Negative (Negative)
--- NOTE | 2025-05-06 14:05 | PN.HOSP_ITS ---
Hospitalist Note Ms. Faulkner left AMA yesterday, reviewed chart to follow-up on the echocardiogram that had been completed and her echocardiogram shows severe LV s ystolic dysfunction with global hypokinesis, an EF of 35% and stage I diastolic dysfunction, moderate 2+ mitral valve insufficiency and trivial pericardial effusion as well as moderate size left pleural effusion. Attempted to call patient to have her come back to the ED given her new onset heart failure with her renal failure and is unclear if this is cardiorenal or other etiology so intended to advise that she return for further workup and management. Called her number on file x 2 and it said "[this] number has calling restrictions that have prevented the completion of this call." Unable to contact patient.
[2025-05-07 09:09] LABS: Cytoplasmic Ab (C-ANCA) <1:20 titer (Neg:<1:20); Perinuclear Ab (P-ANCA) <1:20 titer (Neg:<1:20)
== END 2025-05-05 16:18 | disposition left against medical advice (07) | DRG 194 ==
LOC: ED 08:31 → PCU 10:02
PROVIDERS: Admitting Provider Internal Medicine; Emergency Provider Emergency Medicine; Visit Provider Internal Medicine
DX: I11.0 Hypertensive heart disease with heart failure (principal); N17.9 Acute kidney failure, unspecified; E11.9 Type 2 diabetes mellitus without complications; I50.21 Acute systolic (congestive) heart failure; F17.210 Nicotine dependence, cigarettes, uncomplicated; R79.89 Other specified abnormal findings of blood chemistry; Z53.29 Procedure and treatment not carried out because of patient's decision for other reasons
CPT/HCPCS: 36415; 71046; 71275; 76770; 80048; 80061; 80076; 80307; 81001; 82010; 82436; 82550; 82570; 82962; 83735; 83880; 83935; 84133; 84156; 84300; 84443; 84484; 84540; 85025; 85379; 85652; 86037; 86038; 86140; 86225; 87077; 87086; 87088; 87186; 87633; 93005; 93306; 94668; 99285; 99406; Q9967; A4216; J1938

== ENCOUNTER 2025-05-20 00:47 | Inpatient (IN) | payer MEDICAID, SELFPAY ==
[2025-05-20] VITALS (37 sets, daily range): BP systolic 103–204; BP diastolic 68–122; PULSE 100–131; RESP 7–31; TEMP 36.4–37.1; O2SAT 93–100; BMI 33.1; BMI 30.4; BMI 30.8
--- NOTE | 2025-05-20 01:03 | EKG12_ITS ---
Test Reason : CP Blood Pressure : */* mmHG Vent. Rate : 129 BPM Atrial Rate : 129 BPM P-R Int : 116 ms QRS Dur : 76 ms QT Int : 322 ms P-R-T Axes : 61 86 55 degrees QTcB Int : 471 ms Sinus tachycardia Otherwise normal ECG Confirmed by TIMOTEO CUEVA, LIZZY ([id number]), editor producer ROMELIA GANNON ([id number]) on 05/20/2025 7:31:40 AM Referred By: BITA Confirmed By: LIZZY MAHMOOD MD
--- NOTE | 2025-05-20 01:20 | RAD_ITS ---
PROCEDURE: CHEST 1 VIEW (PORTABLE) 05/20/2025 REASON FOR EXAM: DYSPNEA TECHNIQUE: Frontal view of the chest. COMPARISON: Chest radiograph on 05/05/2025. FINDINGS: Mild increase in bilateral pleural effusions. Mild increase in passive atelectatic airspace disease of the lower lobes. Increased interstitial pulmonary congestion. Normal heart and pericardium. Normal mediastinum and clint. Normal visualized pulmonary arteries. Normal visualized aortic arch and descending thoracic aorta. Normal visualized thoracic spine. Normal visualized ribs, clavicles, and shoulders. There is no demonstrated abnormality of the visualized soft tissue structures of the upper abdomen. RAD/Chest 1 View (Portable) IMPRESSION: Mild increase in bilateral pleural effusions. Mild increase in passive atelectatic airspace disease of the lower lobes. Increased interstitial pulmonary congestion. Reading [facility] [id number]
--- OUTSIDE RECORDS SUMMARY | 2025-05-20 01:27 | XMS RPT_ITS | CCD ---
Author Organization [facility] Inform ion [facility] Care Team Providers Care Store Administrative Assistant Name Role Phone Pierce Pemberton MD Unavailable Porsha Salas Unavailable Unavailable Joey Bradshaw MD Primary Care Provider Joey Bradshaw MD Primary Care Provider [phone] Riya Silverio DO Primary Care Provider Anastasiia Joaquin MD Unavailable [phone] Care Physician, No Primary Primary Care Provider Unavailable Dr. Jose Garza DO Emergency Provider RIYA SILVERIO Primary Care Unavailable ANASTASIIA JOAQUIN Attending Unavailable Mariam Murry Admitting Unavailable Mariam Murry Attending Unavailable Brenden Wilder Consulting Unavailable Care Physician, No Primary Primary Care Unava ilable Mariam Murry Consulting Unavailable Jose Garza Attending Unavailable Care Physician, No Primary Primary Care Unava ilable Jeanmarie Mariam Admitting Unavailable Mariam Murry Attending Unavailable Chris Wilderkas Consulting Unavailable Care Physician, No Primary Primary Care Unava ilable Natalia Rizvi Attending Unavailable Care Physician, No Primary Primary Care Unava ilable Allergies Allergy Classification Reported Allergen(s) Allergy Type Date of Onset Reaction(s) Facility (10 sources) Acetaminophen / HYDROcodone; Translations: [HYDROCODONE-ACET AMINOPHEN] Drug Allergy 3 GI Upset [facility] Other [place] [facility] (10 sources) HYDROmorphone; Translations: [HYDROMORPHONE (BULK)] Drug Allergy 3 Mental Status Change [facility] Repository (14 sources) traMADol; Translations: [TRAMADOL] Drug Allergy 6 Other: See Comments [facility] Repository Comment on above: HEART RACING (4 sources) HYDROcodone; Translations: [hydrocodone bitartrate] Drug Allergy 2 Vomiting [facility] (4 sources) HYDROmorphone; Translations: [hydromorphone HCl] Drug Allergy 2 Other [facility] Medications Current Medications Medication Drug Class(es) Dates [...] One tablet by mouth daily AMITRIPTYLINE HCL [id number] Austin Bello DO Comment on above: Take 1 tablet by greg th daily at bedtime. amLODIPine 5 mg oral tablet (1 source) Dihydropyridine Calcium Channel Justin Start: 09-24-19 take 1 tablet by mouth [...] METER) monitoring kit (8 sources) Start: 03-30-20 Blood-Glucose Meter (FREESTYLE LITE METER) monitoring kit [...] on above: Take 1 capsule by mo [facility] one time a week. doxycycline monohydrate 100 [...] tablet by mouth twice daily DOXYCYCLINE HYCLATE [id number] Natacha Alfred LPN Start: 04-21-2013 End: 05-15-2013 take 1 capsule by mouth twice daily Doxycycline Hyclate 100 MG capsule Discontinued 100 mg PO TWICE A DAY April 21, 2013 12:00am May 15, 2013 1:37pm Start: 03-14-2012 End: 08-27-2012 take 1 tablet by mouth twice daily VIBRAMYCIN 100 MG CAPS One tablet by mouth twice daily DOXYCYCLINE HYCLATE [id number] Pierce Pemberton MD Start: 03-14-2012 End: 08-27-2012 take 1 tablet by mouth twice daily VIBRAMYCIN 100 MG CAPS One tablet by mouth twice daily DOXYCYCLINE HYCLATE [id number] Pierce Pemberton MD Start: 06-08-2011 End: 08-27-2012 take 1 tablet by mouth once daily at mealtime DOXYCYCLINE HYCLATE 100 MG TABS 1 tab by mouth daily with food. DOXYCYCLINE HYCLATE [id number] Pierce Pemberton MD Comment on above: Take 1 capsule by mo [facility] twice daily. ibuprofen 600 mg oral tablet (14 sources) Nonsteroidal Anti-inflammatory Drug Start: 0 take 1 tablet by mouth every six hours as needed for pain ibuprofen (MOTRIN) 600 mg tablet Indications: Cervical radiculopathy Take 1 tablet by mouth every 6 hours as needed for Pain. 50 tablet 04/27/2020 Active Start: 03-07-2017 take 1 tablet by greg twice daily as needed for pain IBUPROFEN 800 MG TABS One tablet by mouth twice daily as needed for pain IBUPROFEN [id number] Pierce Pemberton MD Comment on above: Take [...] glargine LANTUS 100 UNIT/ML SOLN INSULIN GLARGINE [id number] Pierce Pemberton MD 08-26-2013 [facility] ([id number]) 08/26/2013 Active Start: 08-26-2013 LANTUS 100 UNI T/ML SOLN INSULIN GLARGINE [id number] Pierce Pemberton MD Comment on above: insulin glargine PORFIRIO TUS 100 UNIT/ML SOLN INSULIN GLARGINE [id number] Pierce Pemberton MD 08-26-2013 [facility] ([id number]) Inject 13 Units subc utaneously twice daily. L. acidophilus-L. rhamnosus 15 billion cell cap (8 sources) Start: 10-03-19 20 take 1 capsule by mouth once daily L. acidophilus-L. rhamnosus 15 billion cell cap Indications: Vaginal yeast infection Take 1 capsule by mouth once daily. FLORAJEN WOMEN. If on antibiotic, take at least 1-2 hours before or after antibiotic. KEEP REFRIGERATED 30 capsule 11 10/03/2019 Active Comment on above: Take 1 capsule by mo uth once daily. FLORAJEN WOMEN. If on antibiotic, [...] above: Take 1 tablet by greg th once daily. metFORMIN hydrochloride 850 mg oral [...] Two tablets by mouth daily METFORMIN HCL [id number] Austin Bello DO take 1 tablet by greg th twice daily METFORMIN HCL ER (OSM) 1000 MG [id number] One tablet by mouth twice daily METFORMIN HCL [id number] Pierce Pemberton MD take 1 tablet by greg th twice daily METFORMIN HCL ER (OSM) 1000 MG [id number] One tablet by mouth twice daily METFORMIN HCL [id number] Pierce Pemberton MD Comment on above: Take [...] One tablet by mouth twice daily SULFAMETHOXAZOLE-TRIMETHOPRIM [id number] Natacha Alfred LPN Start: 08-27-2012 take 1 tablet by greg th twice daily BACTRIM DS 800-160 MG TABS One tablet by mouth twice daily SULFAMETHOXAZOLE-TRIMETHOPRIM 28339136939 Pierce Pemberton MD Start: 08-27-2012 End: 07-14-2014 take 1 tablet by mouth twice daily BACTRIM DS 800-160 MG TABS One tablet by mouth twice daily SULFAMETHOXAZOLE-TRIMETHOPRIM 45208627981 Natacha Alfred LPN Completed/Discontinued Medications Medication Drug [...] mouth daily as needed for pain OXYCODONE-ACETAMINOPHEN [id number] Pierce Pemberton MD Start: 07-12-2015 End: 03-07-2017 take 1 tablet by mouth once daily as needed for pain PERCOCET 7.5-325 MG TABS One tablet by mouth daily as needed for pain OXYCODONE-ACETAMINOPHEN [id number] Natacha Alfred LPN Start: 07-12-2015 take 1 tablet by greg th once daily as needed for pain PERCOCET 7.5-325 MG TABS One tablet by mouth daily as needed for pain OXYCODONE-ACETAMINOPHEN [id number] Pierce Pemberton MD Start: 01-22-2015 End: 03-07-2017 take 1 tablet by mouth twice daily as needed for pain PERCOCET 7.5-325 MG TABS One tablet by mouth twice daily as needed for pain OXYCODONE-ACETAMINOPHEN [id number] Pierce Pemberton MD Start: 01-22-2015 End: 03-07-2017 take 1 tablet by mouth twice daily as needed for pain PERCOCET 7.5-325 MG TABS One tablet by mouth twice daily as needed for pain OXYCODONE-ACETAMINOPHEN [id number] Natacha Alfred LPN Start: 01-22-2015 take 1 tablet by greg th twice daily as needed for pain PERCOCET 7.5-325 MG TABS One tablet by mouth twice daily as needed for pain OXYCODONE-ACETAMINOPHEN [id number] Pierce Pemberton MD Start: 11-20-2014 End: 03-07-2017 take 1-2 tablets by mouth four times daily as needed for pain PERCOCET 7.5-325 MG TABS one to two tablets by mouth four times daily as needed for pain OXYCODONE-ACETAMINOPHEN [id number] Natacha Alfred LPN Start: 11-20-2014 take 1-2 tablets by mouth four times daily as needed for pain PERCOCET 7.5-325 MG TABS one to two tablets by mouth four times daily as needed for pain OXYCODONE-ACETAMINOPHEN [id number] Pierce Pemberton MD Start: 10-29-2014 End: 03-07-2017 take 1-2 tablets by mouth four times daily as needed for pain PERCOCET 5-325 MG TABS one to two tablet s by mouth four times daily as needed for pain OXYCODONE-ACETAMINOPHEN [id number] Natacha Alfred LPN Start: 10-29-2014 take 1-2 tablets by mouth four times daily as needed for pain PERCOCET 5-325 MG TABS one to two tablet s by mouth four times daily as needed for pain OXYCODONE-ACETAMINOPHEN [id number] Pierce Pemberton MD Start: 10-21-2014 End: 03-07-2017 take 1-2 tablets by mouth four times daily as needed for pain PERCOCET 7.5-325 MG TABS one to two tablets by mouth four times daily as needed for pain OXYCODONE-ACETAMINOPHEN 14413693008 Natacha Alfred LPN Start: 10-21-2014 End: 03-07-2017 take 1-2 tablets by mouth four times daily as needed for pain PERCOCET 7.5-325 MG TABS one to two tablets by mouth four times daily as needed for MODERATE pain OXYCODONE-ACETAMINOPHEN [id number] Natacha Alfred LPN Start: 10-21-2014 take 1-2 tablets by mouth four times daily as needed for pain PERCOCET 7.5-325 MG TABS one to two tablets by mouth four times daily as needed for MODERATE pain OXYCODONE-ACETAMINOPHEN [id number] Pierce Pemberton MD Start: 07-29-2014 End: 03-07-2017 take 1-2 tablets by mouth four times daily as needed for pain PERCOCET 5-325 MG TABS one to two tablet s by mouth four times daily as needed for pain OXYCODONE-ACETAMINOPHEN [id number] Natacha Alfred LPN Start: 07-29-2014 take 1-2 tablets by mouth four times daily as needed for pain PERCOCET 5-325 MG TABS one to two tablet s by mouth four times daily as needed for pain OXYCODONE-ACETAMINOPHEN [id number] Pierce Pemberton MD Start: 07-22-2014 End: 07-12-2015 take 1-2 tablets by mouth four times daily as needed for pain PERCOCET 5-325 MG TABS one to two tablet s by mouth four times daily as needed for pain OXYCODONE-ACETAMINOPHEN [id number] Natacha Alfred LPN Start: 07-22-2014 take 1-2 tablets by mouth four times daily as needed for pain PERCOCET 5-325 MG TABS one to two tablet s by mouth four times daily as needed for pain OXYCODONE-ACETAMINOPHEN [id number] Pierce Pemberton MD Start: 07-14-2014 take 1 tablet by greg th four times daily as needed for pain PERCOCET 5-325 MG TABS One tablet by mouth four times daily as needed for pain OXYCODONE-ACETAMINOPHEN [id number] Pierce Pemberton MD Start: 07-14-2014 End: 07-12-2015 take 1 tablet by mouth four times daily as needed for pain PERCOCET 5-325 MG TABS One tablet by mouth four times daily as needed for pain OXYCODONE-ACETAMINOPHEN 56207665180 Natacha Alfred LPN Start: 06-01-2013 End: 07-12-2013 [...] times daily as needed for pain OXYCODONE-ACETAMINOPHEN [id number] Pierce Pemberton MD Start: 08-27-2012 End: 08-26-2013 take 1-2 tablets by mouth four times daily as needed for pain PERCOCET 5-325 MG TABS one to two tablet s by mouth four times daily as needed for pain OXYCODONE-ACETAMINOPHEN 27805751732 Pierce Pemberton MD Start: 03-14-2012 End: 03-07-2017 take 1-2 tablets by mouth four times daily as needed for pain PERCOCET 5-325 MG TABS one to two tablet s by mouth four times daily as needed for pain OXYCODONE-ACETAMINOPHEN [id number] Natacha Giang Alfred BRE Start: 03-14-2012 take 1-2 tablets by mouth four times daily as needed for pain PERCOCET 5-325 MG TABS one to two tablet s by mouth four times daily as needed for pain OXYCODONE-ACETAMINOPHEN [id number] Pierce Pemberton MD Start: 03-14-2012 End: 08-27-2012 take 1-2 tablets by mouth four times daily as needed for pain PERCOCET 5-325 MG TABS one to two tablet s by mouth four times daily as needed for pain OXYCODONE-ACETAMINOPHEN 21940248349 Pierce Pemberton MD End: 08-27-2012 PERCOCET 5-325 MG TABS One t ablet by mouth six times daily, as needed OXYCODONE-ACETAMINOPHEN 54725933927 Austin Bello DO PERCOCET 5-325 M G TABS One tablet by mouth six times daily, as needed OXYCODONE-ACETAMINOPHEN 22518424878 Austin Bello DO End: 08-27-2012 PERCOCET 5-325 MG TABS One t ablet by mouth six times daily, as needed OXYCODONE-ACETAMINOPHEN 48880369194 Pierce Pemberton MD apple cider vinegar 500 [...] tablet by mouth twice daily CIPROFLOXACIN HCL 09575368799 Natacha Alfred LPN clindamycin 300 mg oral [...] LOTN apply twi ce daily CLINDAMYCIN PHOSPHATE [id number] Austin Bello DO End: 07-12-2015 CLINDAMYCIN HCL CAPS CLINDAM YCIN HCL CAPS [id number] Natacha Alfred LPN CLINDAMYCIN HCL CAPS CLINDAMYCIN HCL CAPS 86305452856 Natacha Rhaat Alfred LPN End: 08-27-2012 CLEOCIN-T 1 % LOTN apply twi ce daily CLINDAMYCIN PHOSPHATE 77160214725 Pierce Pemberton MD CLEOCIN-T 1 % LO TN apply twice daily CLINDAMYCIN PHOSPHATE 45122882765 Austin Bello DO diazePAM 5 mg oral tablet (13 sources) Benzodiazepine Start: 07-29-2014 End: 03-07-2017 take 1 tablet by mouth four times daily as needed for muscle spasms VALIUM 5 MG TABS One tablet by mouth four times daily as needed for spasm DIAZEPAM [id number] Pierce Pemberton MD docusate sodium 100 mg oral capsule (20 sources) Start: 09-24-2019 End: 01-25-2021 take 1 capsule by mouth once daily Docusate Sodium 100 MG capsule Discontinued 100 mg PO DAILY September 24, 2019 12:00am January 25, 2021 3:47pm Start: 10-21-2014 End: 03-07-2017 take 1 tablet by mouth twice daily COLACE 100 MG CAPS One tablet by mouth twice daily DOCUSATE SODIUM [id number] Natacha Alfred LPN Start: 10-21-2014 End: 03-07-2017 take 1 tablet by mouth twice daily COLACE 100 MG CAPS One tablet by mouth twice daily DOCUSATE SODIUM 03217335534 Natacha Alfred LPN take 2 tablets by mo [facility] once daily DOC-Q-LACE LIQD Two tablets by mouth daily DOCUSATE SODIUM LIQD 44882292093 Austin Bello DO End: 08-27-2012 take 2 tablets by mouth once daily DOC-Q-LACE LIQD Two tablets by mouth daily DOCUSATE SODIUM LIQD 64785835430 Pierce Pemberton MD DOCUSATE SODIUM LIQD (6 sources) End: 08-27-2012 take 2 tablets by mouth once daily DOC-Q-LACE LIQD Two tablets by mouth daily DOCUSATE SODIUM LIQD 99961339667 Pierce Pemberton MD take 2 tablets by mouth once john ly DOC-Q-LACE LIQD Two tablets by mouth daily DOCUSATE SODIUM LIQD 58568977322 Austin Bello DO ferrous sulfate 325 mg [...] TABS One tablet by mouth daily FLUCONAZOLE [id number] Natacha Alfred LPN Start: 06-01-2013 End: 07-12-2013 take 1 tablet by mouth once Fluconazole (Diflucan) 150 MG tablet Discontinued 150 mg PO ONE TIME June 01, 2013 1:00am July 12, 2013 3:51pm gabapentin 600 mg oral tablet (20 sources) Anti-epileptic Agent Start: 08-26-2013 take 2 tablets by mouth once daily NEURONTIN 600 MG TABS Two tablets by mouth daily GABAPENTIN 68299153270 Pierce Pemberton MD End: 08-27-2012 take 1 tablet by mouth once daily GABAPENTIN 600 MG TABS One tablet by mouth daily GABAPENTIN 53209051395 Pierce Pemberton MD End: 07-12-2015 GABAPENTIN CAPS GABAPENTIN C APS 03243834897 Natacha Alfred LPN GABAPENTIN CAPS GABAPENTIN CAPS 67626049399 Natacha Alfred LPN HYDROmorphone hydrochloride 2 mg oral tablet (20 sources) Opioid Agonist Start: 03-29-2012 End: 03-07-2017 take 1-2 tablets by mouth four times daily as needed for pain DILAUDID 2 MG TABS one to two tablets by mouth four times daily as needed for pain HYDROMORPHONE HCL 60187473184 Pierce Pemberton MD INSULIN DETEMIR SOLN (7 sources) Insulin Analogue LEVEMIR FLEXPEN SOPN INSULIN DETEMIR SOLN 64422249972 Austin Bello DO LEVEMIR FLEXPEN SOLN INSULIN DETEMIR SOLN 72153340237 Austin D Bello DO 3 ml insulin lispro 100 unt/ml pen injector (14 sources) Insulin Analogue End: 08-27-2012 HUMALOG KWIKPEN SOLN INSULIN LISPRO (HUMAN) SOLN [id number] Pierce Pemberton MD HUMALOG KWIKPEN SOLN INSULIN LISPRO (HUMAN) SOLN [id number] Austin D Bello DO End: 08-27-2012 HUMALOG KWIKPEN SOLN INSULIN LISPRO (HUMAN) SOLN [id number] Pierce Pemberton MD lactobacillus (14 sources) Start: 07-22-2014 End: 07-12-2015 take 1 tablet by mouth twice daily ACIDOPHILUS PROBIOTIC TABS One tablet by mouth twice daily LACTOBACILLUS 66926564938 Natacha Alfred LPN Start: 07-22-2014 take 1 tablet by greg th twice daily ACIDOPHILUS PROBIOTIC TABS One tablet by mouth twice daily LACTOBACILLUS [id number] Pierce Pemberton MD Start: 07-22-2014 End: 07-12-2015 take 1 tablet by mouth twice daily ACIDOPHILUS PROBIOTIC TABS One tablet by mouth twice daily LACTOBACILLUS 43281482881 Natacha Rahat Alfred LPN Start: 07-22-2014 take 1 tablet by greg th twice daily ACIDOPHILUS PROBIOTIC TABS One tablet by mouth twice daily LACTOBACILLUS 52647740245 Pierce Pemberton MD levoFLOXacin 500 mg oral tablet (13 sources) Quinolone Antimicrobial Start: 10-21-2014 End: 03-07-2017 take 1 tablet by mouth once daily LEVAQUIN 500 MG TABS One tablet by mouth daily LEVOFLOXACIN 74250406702 Natacha Alfred LPN metroNIDAZOLE 500 mg oral tablet (20 sources) Nitroimidazole Antimicrobial Start: 03-28-2012 End: 07-12-2015 take 1 tablet by mouth three times daily FLAGYL 500 MG TABS One tablet by mouth three times daily METRONIDAZOLE 06562188607 Pierce Pemberton MD minocycline 100 mg oral tablet (14 sources) Tetracycline-class Drug Start: 07-24-2014 End: 07-12-2015 take 1 tablet by mouth twice daily MINOCYCLINE HCL 100 MG TABS One tablet by mouth twice daily MINOCYCLINE HCL 60201493496 Pierce Pemberton MD naproxen 500 mg oral [...] daily as needed for nausea PROMETHAZINE HCL 48032436907 Natacha Alfred LPN vitamin B12 (3 sources) [...] Problem Classification Problem Date Documented Date Episodic/Chronic Acute and unspecified renal failure (1 source) Acute kidney failure, unspecified; Translations: [Acute kidney failure, unspecified] Onset: 05-12-2025 Episodic Bacterial infection (13 sources) Other staphylococcus as [...] hypertension; Translations: [Essential (primary) hypertension] 07-16-2017 Chronic Hypertension with complications and secondary hypertension (1 source) Hypertensive heart disease with heart failure; Translations: [Hypertensive heart disease with heart failure] Onset: 05-12-2025 Chronic Inflammatory diseases of female pelvic organs [...] [Neuralgia and neuritis, unspecified] 12-29-2022 Episodic Other infections; including parasitic (2 sources) [...] Translations: [Other chronic pain] 04-22-2024 Chronic Other non-traumatic joint disorders (1 source) Pain in left shoulder; Translations: [Pain in left shoulder] Onset: 08-01-2018 Episodic Other nutritional; endocrine; and metabolic disorders (3 sources) Obesity; Translations: [Obesity, unspecified] 07-16-2017 Chronic Other nutritional; endocrine; and metabolic disorders (1 source) H/O: diabetes mellitus; Translations: [Personal history of other endocrine, nutritional and metabolic disease] 04-22-2024 Episodic Other screening for suspected conditions (not mental disorders or infectious disease) (11 sources) Patient encounter status; Translations: [Encounter for screening for lipoid disorders] Onset: 10-14-2019 Episodic Other skin disorders (6 sources) Hidradenitis; [...] neuritis, unspecified] Onset: 06-04-2013 06-04-2013 Episodic Other connective tissue disease (1 source) Other muscle spasm; Translations: [Other muscle spasm] Onset: 09-29-2024 Episodic Other infections (7 sources) H/O: infectious [...] left shoulder] Onset: 09-05-2018 09-05-2018 Episodic Other skin disorders (20 sources) Hidradenitis [...] Test Name Value Interpretation Reference Range Facility MARIANO w/ Reflex Mult Confirmon 05-07-2025 ANTI-DNA (DS)AB TNP Normal [facility] Comment on above: Performed By: #### L 501.5200, L100.0100, L500.4050 #### [facility] [address] [place], [address] ANTI-SS-A TNP Normal [facility] Comment on above: Performed By: #### L 501.5200, L100.0100, L500.4050 #### [facility] [address] [place], [address] ANTI-SS-B TNP Normal [facility] Comment on above: Performed By: #### L 501.5200, L100.0100, L500.4050 #### [facility] [address] [place], [address] ANCAon 05-07-2025 Atypical pANCA <1:20 Normal Neg:<1:20 [facility] Comment on above: Result Comment: The atypical pANCA pattern has been observed in a significant percentage of patients with ulcerative colitis, primary sclerosing cholangitis and autoimmune hepatitis. Performed at: [address] [id number] Production Posting Clerk: Trey Arias PhD, Phone: [phone] Performed By: #### L 501.5200, L100.0100, L500.4050 #### [facility] [address] [place], [address] Cytoplasmic Ab <1:20 Normal Neg:<1:20 [facility] Comment on above: Performed By: #### L 501.5200, L100.0100, L500.4050 #### [facility] [address] [place], [address] Perinuclear Ab. <1:20 Normal Neg:<1:20 [facility] Comment on above: Result Comment: The presence of positive fluorescence exhibiting P-ANCA or C-ANCA patterns alone is not specific for the diagnosis of Kel's Granulomatosis (WG) or microscopic polyangiitis. Decisions about treatment should not be based solely on ANCA IFA results. The [employer] ANCA [employer] Consensus recommends follow up testing of positive sera with both NC- 3 and MPO-ANCA enzyme immunoassays. As many as 5% serum samples are positive only by EIA. Ref. AM J Clin Pathol 1999;111:507-513. Performed By: #### L 501.5200, L100.0100, L500.4050 #### [facility] [address] [place], [address] Urine Cultureon 05-07-2025 URC Escherichia coli [place] Count >100,000 Escherichia coli: REACTION Ampicillin Islt FLORINDA <=2 Ampicillin+Sulbac Islt FLORINDA <=2 S Cefepime Islt FLORINDA <=0.12 S cefTRIAXone Islt FLORINDA <=0.25 S Ciprofloxacin Islt FLORINDA 1 R B-Lactamase Extended Susc Islt NEG Gentamicin Islt FLORINDA <=1 S levoFLOXacin Islt FLORINDA 1 I Meropenem Islt FLORINDA <=0.25 S Nitrofurantoin Islt FLORINDA <=16 S Pip+Tazo Islt FLORINDA <=4 S TMP SMX Islt FLORINDA <=20 S Normal [facility] Comment on above: Performed By: #### L 400.0001 #### [facility] [address] [facility] [place], [address] CBC W/Diff, Automatedon Absolute Neut Normal 2.0-7.7 [facility] Comment on above: Result Comment: Canc elled via OM: Order cancelled - Patient discharged Performed By: #### L 100.0100, L500.4050 #### [facility] [address] [place], [address] HCT Normal 37-47 [facility] Comment on above: Result Comment: Canc elled via OM: Order cancelled - Patient discharged Performed By: #### L 100.0100, L500.4050 #### [facility] [address] [facility] [place], [address] HGB Normal 12.0-15.0 [facility] Comment on above: Result Comment: Canc elled via OM: Order cancelled - Patient discharged Performed By: #### L 100.0100, L500.4050 #### [facility] [address] [place], [address] MCH Normal 27.0-32.0 [facility] Comment on above: Result Comment: Canc elled via OM: Order cancelled - Patient discharged Performed By: #### L 100.0100, L500.4050 #### [facility] [address] [place], [address] MCHC Normal 32-36 [facility] Comment on above: Result Comment: Canc elled via OM: Order cancelled - Patient discharged Performed By: #### L 100.0100, L500.4050 #### [facility] [address] [place], [address] MCV Normal 81-99 [facility] Comment on above: Result Comment: Canc elled via OM: Order cancelled - Patient discharged Performed By: #### L 100.0100, L500.4050 #### [facility] [address] [place], [address] NEUT% Normal 47-70 [facility] Comment on above: Result Comment: Canc elled via OM: Order cancelled - Patient discharged Performed By: #### L 100.0100, L500.4050 #### [facility] [address] [place], [address] PLT Normal 150-450 [facility] Comment on above: Result Comment: Canc elled via OM: Order cancelled - Patient discharged Performed By: #### L 100.0100, L500.4050 #### [facility] [address] [place], [address] RBC Normal 4.2-5.4 [facility] Comment on above: Result Comment: Canc elled via OM: Order cancelled - Patient discharged Performed By: #### L 100.0100, L500.4050 #### [facility] [address] [place], [address] RDW CV Normal 11.6-14.6 [facility] Comment on above: Result Comment: Canc elled via OM: Order cancelled - Patient discharged Performed By: #### L 100.0100, L500.4050 #### [facility] [address] [place], [address] RDW SD Normal 35.1-43.9 [facility] Comment on above: Result Comment: Canc elled via OM: Order cancelled - Patient discharged Performed By: #### L 100.0100, L500.4050 #### [facility] [address] [place], [address] WBC Normal 4.4-11.0 [facility] Comment on above: Result Comment: Canc elled via OM: Order cancelled - Patient discharged Performed By: #### L 100.0100, L500.4050 #### [facility] [address] [place], [address] Comprehensive Metabolic Prof ilon 05-06-2025 ALB Normal 3.5-5.0 [facility] Comment on above: Result Comment: Canc elled via OM: Order cancelled - Patient discharged Performed By: #### L 100.0100, L500.4050 #### [facility] [address] [place], [address] ALK PHOS Normal 35-104 [facility] Comment on above: Result Comment: Canc elled via OM: Order cancelled - Patient discharged Performed By: #### L 100.0100, L500.4050 #### [facility] [address] [place], [address] ALT Normal <=34 [facility] Comment on above: Result Comment: Canc elled via OM: Order cancelled - Patient discharged Performed By: #### L 100.0100, L500.4050 #### [facility] [address] [place], [address] AST Normal <=31 [facility] Comment on above: Result Comment: Canc elled via OM: Order cancelled - Patient discharged Performed By: #### L 100.0100, L500.4050 #### [facility] [address] [place], [address] BUN Normal 4-19 [facility] Comment on above: Result Comment: Canc elled via OM: Order cancelled - Patient discharged Performed By: #### L 100.0100, L500.4050 #### [facility] [address] [place], [address] BUN/CRE Normal 10-20 [facility] Comment on above: Result Comment: Canc elled via OM: Order cancelled - Patient discharged Performed By: #### L 100.0100, L500.4050 #### [facility] [address] [place], [address] Calcium Normal 7.6-11.0 [facility] Comment on above: Result Comment: Canc elled via OM: Order cancelled - Patient discharged Performed By: #### L 100.0100, L500.4050 #### [facility] [address] [place], [address] CL Normal 98-108 [facility] Comment on above: Result Comment: Canc elled via OM: Order cancelled - Patient discharged Performed By: #### L 100.0100, L500.4050 #### [facility] [address] [place], [address] CO2 Normal 21.0-32.0 [facility] Comment on above: Result Comment: Canc elled via OM: Order cancelled - Patient discharged Performed By: #### L 100.0100, L500.4050 #### [facility] [address] [place], [address] CREAT,SERUM Normal 0.70-1.20 [facility] Comment on above: Result Comment: Canc elled via OM: Order cancelled - Patient discharged Performed By: #### L 100.0100, L500.4050 #### [facility] [address] [place], [address] eGFR Normal >60 [facility] Comment on above: Result Comment: Canc elled via OM: Order cancelled - Patient discharged Performed By: #### L 100.0100, L500.4050 #### [facility] [address] [place], [address] GAP Normal 5-15 [facility] Comment on above: Result Comment: Canc elled via OM: Order cancelled - Patient discharged Performed By: #### L 100.0100, L500.4050 #### [facility] [address] [place], [address] GLU Normal 70-99 [facility] Comment on above: Result Comment: Canc elled via OM: Order cancelled - Patient discharged Performed By: #### L 100.0100, L500.4050 #### [facility] [address] [place], [address] Potassium Normal 3.3-5.1 [facility] Comment on above: Result Comment: Canc elled via OM: Order cancelled - Patient discharged Performed By: #### L 100.0100, L500.4050 #### [facility] [address] [place], [address] T BILI Normal 0.00-1.30 [facility] Comment on above: Result Comment: Canc elled via OM: Order cancelled - Patient discharged Performed By: #### L 100.0100, L500.4050 #### [facility] [address] [place], [address] T PROT Normal 5.9-8.4 [facility] Comment on above: Result Comment: Canc elled via OM: Order cancelled - Patient discharged Performed By: #### L 100.0100, L500.4050 #### [facility] [address] [place], [address] Comprehensive Metabolic Profil Normal 133-145 [facility] Comment on above: Result Comment: Canc elled via OM: Order cancelled - Patient discharged Performed By: #### L 100.0100, L500.4050 #### [facility] [address] [place], [address] 12 Lead EKGon 05-05-2025 12 Lead EKG [facility] Cardi[facility] Services [address] [place] [address] 12 Lead EKG 05/05/25 0547 MR#: [id number] Acct: [id number] Name: MINDY FAULKNER Rep #: [id number] : 1980 44 From: Lopez Polanco MD Attending Dr: Dr. Mariam Murry MD Status: DIS IN Ordering Dr: Taran Ortega DO Date: 05/05/25 Location: [facility] Sex: F AA Admitted: 05/05/25 Test Reason : CP Blood Pressure : */* mmHG Vent. Rate : 122 BPM Atrial Rate : 122 BPM P-R Int : 142 ms QRS Dur : 76 ms QT Int : 322 ms P-R-T Axes : 49 85 67 degrees QTcB Int : 458 ms Sinus tachycardia Nonspecific T wave abnormality Abnormal ECG Confirmed by Lopez Polanco ([id number]), offline editor RENETTA FANG ([id number]) on 05/06/2025 12:34:40 PM Referred By: BITA Confirmed By: Lopez Polanco 05/06/25 1234 Date Lopez Polanco MD CC: Dr. Mariam Murry MD; Taran Ortega DO; No Primary Care Physician Signed Normal [facility] Basic Metabolic Profile (BMP )on 05-05-2025 BUN/CRE 12.6 RATIO Normal 10-20 [facility] Comment on above: Performed By: #### L 400.0001 #### [facility] [address] [place], [address] Calcium [Mass/Vol] 7.7 mg/dL Normal 7.6-11.0 [facility] Comment on above: Performed By: #### L 400.0001 #### [facility] [address] [place], [address] Chloride [Moles/Vol] 110 mmol/L High 98-108 [facility] Comment on above: Performed By: #### L 400.0001 #### [facility] [address] [place], [address] CO2 [Moles/Vol] 17.0 mmol/L Low 21.0-32.0 [facility] Comment on above: Performed By: #### L 400.0001 #### [facility] [address] [place], [address] Creatinine [Mass/Vol] 2.42 mg/dL High 0.70-1.20 [facility] Comment on above: Performed By: #### L 400.0001 #### [facility] [address] [place], [address] ECRCL 28.38 ml/min Low 50-250 [facility] Comment on above: Performed By: #### L 400.0001 #### [facility] [address] [place], [address] GAP 9 Normal 5-15 [facility] Comment on above: Performed By: #### L 400.0001 #### [facility] [address] [place], [address] GFR/1.73 sq M.predicted among non-blacks MDRD (S/P/Bld) [Vol rate/Area] 25 mL/min/{1.73_m2} Low >60 [facility] Comment on above: Result Comment: mL/m in/1.73m2 CKD-EPI Creatinine Equation (2020) Performed By: #### L 400.0001 #### [facility] [address] [place], [address] Glucose [Mass/Vol] 189 mg/dL High 70-99 [facility] Comment on above: Performed By: #### L 400.0001 #### [facility] [address] [place], [address] Potassium [Moles/Vol] 3.8 mmol/L Normal 3.3-5.1 [facility] Comment on above: Result Comment: Hemo lysis present, Results??could be affected. ?? Performed By: #### L 400.0001 #### [facility] [address] [place], [address] Sodium [Moles/Vol] 136 mmol/L Normal 133-145 [facility] Comment on above: Performed By: #### L 400.0001 #### [facility] [address] [place], [address] Urea nitrogen [Mass/Vol] 30 mg/dL High 4-19 [facility] Comment on above: Performed By: #### L 400.0001 #### [facility] [address] [place], [address] Bedside Glucoseon 05-05-2025 FINGERSTICK GLU 195 mg/dL High 74-106 [facility] Comment on above: Result Comment: ALIX PAYAN OF PATIENT CARE PER NURSING PROTOCOL Performed By: #### L 501.080 #### [facility] [address] [place], [address] Beta-Hydroxbytyrateon 2024 BETA-HYDROXYBUT 0.2 mmol/L Normal 0.0-0.3 [facility] Comment on above: Performed By: #### L 400.0001 #### [facility] [address] [place], [address] CBC W/Diff, Automatedon 11-0 4-2024 Absolute Lymph 2.21 X10 3/uL Normal 0.83-4.51 [facility] Comment on above: Performed By: #### L 400.0001 #### [facility] [address] [place], [address] Absolute Neut 4.8 X10 3/uL Normal 2.0-7.7 [facility] Comment on above: Performed By: #### L 400.0001 #### [facility] [address] [place], [address] Basophils/100 WBC (Bld) 0.9 % Normal 0-[address] [facility] Comment on above: Performed By: #### L 400.0001 #### [facility] [address] [place], [address] Eosinophils/100 WBC (Bld) 3.7 % Normal 0-5 [facility] Comment on above: Performed By: #### L 400.0001 #### [facility] [address] [place], [address] Erythrocyte distribution width (RBC) [Ratio] 13.1 % Normal 11.6-14.6 [facility] Comment on above: Performed By: #### L 400.0001 #### [facility] [address] [place], [address] Hematocrit (Bld) [Volume fraction] 31.3 % Low 37-47 [facility] Comment on above: Performed By: #### L 400.0001 #### [facility] [address] [place], [address] Hemoglobin (Bld) [Mass/Vol] 10.8 g/dL Low 12.0-15.0 [facility] Comment on above: Performed By: #### L 400.0001 #### [facility] [address] [place], [address] IG% 0.400 Normal 0.0-0.9 [facility] Comment on above: Result Comment: IG% - Immature Granulocytes (promyelocytes, myelocytes and metamyelocytes) > 1% indicates that a LEFT SHIFT is Present. Performed By: #### L 400.0001 #### [facility] [address] [place], [address] Lymphocytes/100 WBC (Bld) 27.4 % Normal 19-41 [facility] Comment on above: Performed By: #### L 400.0001 #### [facility] [address] [place], [address] MCH (RBC) [Entitic mass] 29.4 pg Normal 27.0-32.0 [facility] Comment on above: Performed By: #### L 400.0001 #### [facility] [address] [place], [address] MCHC (RBC) [Mass/Vol] 34.5 g/dL Normal 32-36 [facility] Comment on above: Performed By: #### L 400.0001 #### [facility] [address] [place], [address] MCV (RBC) [Entitic vol] 85.3 fL Normal 81-99 [facility] Comment on above: Performed By: #### L 400.0001 #### [facility] [address] [place], [address] Monocytes/100 WBC (Bld) 7.8 % Normal 0-[address] [facility] Comment on above: Performed By: #### L 400.0001 #### [facility] [address] [place], [address] Neutrophils/100 WBC (Bld) 59.8 % Normal 47-70 [facility] Comment on above: Performed By: #### L 400.0001 #### [facility] [address] [place], [address] Nucleated RBC (Bld) [#/Vol] 0 10*3/uL Normal 0-5 [facility] Comment on above: Performed By: #### L 400.0001 #### [facility] [address] [place], [address] Platelet mean volume (Bld) [Entitic vol] 11.7 fL Normal 6.2-12.0 [facility] Comment on above: Performed By: #### L 400.0001 #### [facility] [address] [place], [address] Platelets (Bld) [#/Vol] 199 10*3/uL Normal 150-450 [facility] Comment on above: Performed By: #### L 400.0001 #### [facility] [address] [place], [address] RBC (Bld) [#/Vol] 3.67 10*6/uL Low 4.2-5.[address] [facility] Comment on above: Performed By: #### L 400.0001 #### [facility] [address] [place], [address] RDW SD 40.3 fl Normal 35.1-43.9 [facility] Comment on above: Performed By: #### L 400.0001 #### [facility] [address] [place], [address] WBC (Bld) [#/Vol] 8.1 10*3/uL Normal 4.4-11.0 [facility] Comment on above: Performed By: #### L 400.0001 #### [facility] [address] [place], [address] CPK Total, Creatine Kinaseon 05-05-2025 CPK TOTAL 727 U/L High 24-195 [facility] Comment on above: Performed By: #### L 501.5200, L100.0100, L500.4050 #### [facility] [address] [place], [address] CRPon 05-05-2025 C-REACTIVE PROT < 3.00 Normal 0.0-3.0 [facility] Comment on above: Performed By: #### L 501.5200, L100.0100, L500.4050 #### [facility] [address] [place], [address] CTA Chest W/WO Contraston CTA Chest W/WO Contrast [facility] Imaging Services [address] [place] [address] CTA Chest W/WO Contrast MR#: [id number] Acct: [id number] Name: MINDY FAULKNER Rep #: [id number] : 1980 F 44 From: Rob Ramon MD PCP: Care Physician,No Primary Status: REG ER Study: CTA Chest W/WO Contrast Date of Exam: 05/05/25 Exam# [id number] Ordering Dr: Taran Ortega DO PROCEDURE: CTA CHEST W/WO CONTRAST 05/05/2025 REASON FOR EXAM: CHEST PAIN WITH ELEVATED D-DIMER TECHNIQUE: Procedure Code: CTCTACHWW Modality: CT Procedure: CTA CHEST W/WO CONTRAST Multiplanar Sagittal and Coronal images were obtained. CONTRAST: 84 cc Isovue 370 One or more dose reduction techniques were used (e.g., Automated exposure control, adjustment of the mA and/or kV according to patient size, use of iterative reconstruction technique). RADIATION DOSE SUMMARY: DLP: 256 mGycm COMPARISON: May 05, 2025 FINDINGS: Hardware: None Lymph nodes: There is no pathologic adenopathy by size criteria. Heart: Within normal limits. Atherosclerotic calcifications are visible. RV/LV Diameter Ratio: 0.8 Thoracic Aorta: Within normal limits Pulmonary Vessels: Main pulmonary artery Hounsfield units = 619. There is no visible pulmonary embolus. Lungs and Airways: There are patchy interstitial and alveolar infiltrates. There is a 0.6 cm ground-glass nodular density in the right upper lung, image 198/253. There is a 0.5 cm ground-glass nodule in the right mid lung, image 121/253. There is a 0.6 cm ground-glass nodular density in the left mid lung, image 168/253. There is a 0.4 cm solid nodular density in the periphery of the upper portion of the left lower lobe, image 188/253. Pleura: There is a 2.3 cm right pleural effusion. There is a 2.1 cm left pleural effusion. Upper Abdomen: A 0.2 cm nonobstructing stone is noted in the left renal midpole. Bones: There is no acute bony abnormality. CT/CTA Chest W/WO Contrast IMPRESSION: There is no visible pulmonary embolus. There are patchy interstitial and alveolar infiltrates. There is a 0.6 cm ground-glass nodular density in the right upper lung, image 198/253. There is a 0.5 cm ground-glass nodule in the right mid lung, image 121/253. There is a 0.6 cm ground-glass nodular density in the left mid lung, image 168/253. There is a 0.4 cm solid nodular density in the periphery of the upper portion of the left lower lobe, image 188/253. Follow-up is recommended. There is a 2.3 cm right pleural effusion. There is a 2.1 cm left pleural effusion. A 0.2 cm nonobstructing stone is noted in the left renal midpole. Reading Location: [facility] CC: Taran Ortega DO; No Primary Care Physician Cotton Buyer: Signed Normal [facility] Chest PA and Lateralon 05-05 Chest PA and Lateral [facility] Imaging Services [address] [place], [place] [address] Chest PA and Lateral MR#: [id number] Acct: [id number] Name: MINDY FAULKNER Rep #: [id number] : 1980 F 44 From: Randy Estrada DO PCP: Care Physician,No Primary Status: REG ER Study: Chest PA and Lateral Date of Exam: 05/05/25 Exam# [id number] Ordering Dr: Taran Ortega DO PROCEDURE: CHEST PA AND LATERAL 05/05/2025 REASON FOR EXAM: DYSPNEA TECHNIQUE: Procedure Code: RADCXR Modality: DX Procedure: CHEST PA AND LATERAL COMPARISON: CT chest angiogram done same day FINDINGS: The lungs are adequately aerated bilaterally with trace bilateral pleural effusions. Infiltrative airspace opacities are noted bilaterally, particularly on the right. Mild central vascular congestion. Coarse pulmonary markings. No cardiomegaly. Mild degenerative changes of the shoulders and spine. RAD/Chest PA and Lateral IMPRESSION: Small bilateral pleural effusions with infiltrative airspace opacities. Reading Location: [place] [address] CC: Taran Ortega DO; No Primary Care Physician Cotton Buyer: Signed Normal [facility] Consultation - Nephrologyon 05-05-2025 Consultation - Nephrology [facility] Medical Records Department [address] [place] [address] Consultation - Nephrology 05/05/25 1219 MR#: [id number] Acct: [id number] Name: MINDY FAULKNER Rep #: [id number] : 1980 44 From: Brenden Wilder MD PCP: Care Physician,No Primary Status:ADM IN Location: [place] [address] Assessment Plan Assessment/Plan (1) Acute kidney injury: PLAN: Baseline creatinine was normal earlier this year. Came in with a creatinine of 2.4. I would expect at least some proteinuria from diabetes. However she has microscopic hematuria. Will send for quantification. CT chest images reviewed, she has some nodular opacities, interstitial infiltrate pattern. There is also some pleural effusion. BNP is significantly high. Possible shortness of breath is cardiogenic but nephritic/nephrotic needs to be ruled out. Serologies have already been sent. Okay to give Lasix as needed. Currently looks comfortable breathing wade. Will follow-up. Extensive family history of autoimmune conditions. Specifically lupus. She has hidradenitis. Does not have erythema nodosum. Has not seen rheumatology recently. Currently not on any immunosuppressive therapy. Infection has not been taking any medications for the last 10 months or so. HPI Consult Data Date of Consult: 05/05/25 HPI Narrative Reason for Consultation: Acute renal failure HPI Narrative: MINDY FAULKNER, is a 44 F who presents to the hospital with shortness of breath. Nephrology on consultation in view of acute renal failure. She has known history of diabetes apparently since she was about 19 or 24 years of age. Earlier this year she decided that she will go all-natural, stopped taking most medications. Started having shortness of breath for the last few days, lower extremity edema for the last few weeks. Found to have renal failure, creatinine of 2.4. Last known creatinine from earlier this year was close to normal values. Past medical history significant for diabetes which was diagnosed when she was in the early 20s. Does not think she has any kidney disease from diabetes. No history of kidney stones, UTIs recently. Apparently was diagnosed with hidradenitis for the last 15 years or so. She was in a clinical trial at [facility] for it, continues to have symptoms from it. Currently not on any treatment for it. Extensive family history of autoimmune condition, specifically lupus. Apparently multiple family members on the father side have lupus had lung involvement even. She says urine has been cloudy, no obvious hematuria. No dysuria, frequency, urgency. Workup since admission creatinine of 2.4, urine analysis with proteinuria and hematuria. Renal ultrasound without any hydronephrosis. CT chest with nodular densities bilaterally, mild pleural effusions. Extensive interstitial infiltrates. BNP was significantly elevated. Chest x-ray with pulmonary edema pattern. Echocardiogram pending. [facility] Medical History Wears dentures Wears glasses Anxiety [...] ???Medication ???Instructions ???Recorded ???Last Taken ???Type NK 05/05/25 Unknown History Allergy/AdvReac Type Severity Reaction Status Date / Time hydrocodone bitartrate (From AdvReac Vomiting Verified 05/05/25 05:50 Vicodin) hydromorphone HCl (From AdvReac Other Verified 05/05/25 05:50 Dilaudid) tramadol AdvReac Other Verified 05/05/25 05:50 Family History Other Diabetes Surgical History Hx of tooth extraction History of cystoscopy Hidradenitis Social History household members: none Smoking Status: Current every day smoker tobacco type: cigars second hand exposure: Yes alcohol intake: former substance use type: marijuana additional social history: Does Not Take Aspirin Does Take Ibuprofen As Needed ROS ROS Narrative Negative except history Physical Exam Narrative Alert awake oriented x 3 no obvious distress no pallor no icterus no JVD s1s2 no murmurs lungs clear abdomen soft no organomegaly + edema Lab / Micro Data 05/05/25 05:58 05/05/25 05:58 Labs: Laboratory Results - last 24 hr 05/05/25 05:58: WBC 8.1, RBC 3.67 L, Hgb 10.8 L, Hct 31.3 L, MCV 85.3, MCH 29.4, MCHC 34.5, RDW Std D (more content not included)... Normal [facility] D-Dimer Quantitative (DVT/PE )on 05-05-2025 D-DIMER QUANT 3.43 FEU/ug/m Invalid Interpretation Code 0.27-0.49 [facility] Comment on above: Result Comment: D-Di diamante ELEVATED (>0.49): Additional studies and clinical assessments are indicated to conclude diagnosis of: Deep Vein Thrombosis (DVT) or Pulmonary Embolism (PE) CRITICAL VALUE CALLED TO INK 05/05/25 0630 Shagufta Spencer. RESULTS READ BACK BY SAME. Performed By: #### L 400.0001 #### [facility] [address] [place], [address] Echo Completeon 05-05-2025 Echo [facility] Cardi[facility] Services [address] [place] [address] Echo Complete 05/05/25 1403 MR#: [id number] Acct: [id number] Name: MINDY FAULKNER Rep #: [id number] : 1980 44 From: Natalia Rizvi MD Attending Dr: Dr. Mariam Murry MD Status: DIS IN Ordering Dr: Mariam Murry MD Date: 05/05/25 Location: [facility] [facility] Sex: F AA Admitted: 05/05/25 Reason For Study Reason For Study: Chest Pain Procedure This was a 2D Doppler, Color Flow transthoracic echocardiogram. Exam performed portable in patient room. Left Ventricle Mild to moderate left ventricular concentric hypertrophy. Normal LV size. Severe LV systolic dysfunction with global hypokinesis. Estimated LVEF 35%. Stage I diastolic dysfunction. Right Ventricle Normal right ventricle. Atria The left and right atria are normal. Mitral Valve Moderate (2+) mitral valve insufficiency. Tricuspid Valve Trivial tricuspid valve insufficiency. Unable to estimate RV systolic pressure due to insufficient tricuspid regurgitant envelope. Aortic Valve Trisinus/trileaflet aortic valve. Pulmonic Valve The pulmonic valve is not well visualized. Great Vessels Normal sized aortic root. Pericardium/Pleural Trivial pericardial effusion. Moderate size left pleural effusion. MMode/2D Measurements Calculations LVIDd: 4.3 cm IVSd: 1.2 cm Ao root diam: 3.1 cm LVIDs: 3.4 cm LVPWd: 1.4 cm RVDd: 3.1 cm FS: 21.8 % LAV(MOD-bp): 39.2 ml LVAd ap4: 29.8 cm2 SV(MOD-sp4): 33.2 ml LAV(MOD-bp) Indexed: 22.1 ml/m2 LVLd ap4: 7.7 cm SI(MOD-sp4): 18.7 ml/m2 LAV(MOD-sp2): 39.9 ml EDV(MOD-sp4): 93.3 ml LAV(MOD-sp4): 36.7 ml EDV(sp4-el): 97.1 ml LVAs ap4: 22.9 cm2 LVLs ap4: 7.3 cm ESV(MOD-sp4): 60.1 ml ESV(sp4-el): 61.0 ml EF(MOD-sp4): 35.6 % EF(sp4-el): 37.1 % SV(sp4-el): 36.1 ml LA A4 area: 13.4 cm2 LA dimension(2D): 3.5 cm RA A4 area: 8.9 cm2 TAPSE: 2.1 cm Time Measurements MV dec time: 0.07 sec Doppler Measurements Calculations MV E max gladys: 95.5 cm/sec Lat Peak E' Gladys: 8.8 cm/sec Med Peak E' Gladys: 10.7 cm/sec MV A max gladys: 104.8 cm/sec E/E' lat: 10.9 E/E' med: 8.9 MV E/A: 0.91 MV V2 max: 122.5 cm/sec Ao V2 max: 85.0 cm/sec LV V1 max: 80.4 cm/sec MV max P.0 mmHg Ao max P.9 mmHg LV V1 max P.6 mmHg MV V2 mean: 75.0 cm/sec Ao V2 mean: 61.8 cm/sec LV V1 mean P.3 mmHg MV mean P.6 mmHg Ao mean P.7 mmHg LV V1 mean: 54.0 cm/sec MV V2 VTI: 20.9 cm Ao V2 VTI: 14.2 cm LV V1 VTI: 13.3 cm AV (velocity ratio): 0.93 MR max gladys: 498.9 cm/sec PA V2 max: 90.3 cm/sec MR max P.6 mmHg ECHO/Echo Complete Interpretation Summary Mild to moderate left ventricular concentric hypertrophy. Normal LV size. Severe LV systolic dysfunction with global hypokinesis. Estimated LVEF 35%. Stage I diastolic dysfunction. The left and right atria are normal. Moderate (2+) mitral valve insufficiency. Trivial pericardial effusion. Moderate size left pleural effusion. Ordering Physician: Mariam Murry Performed By: Kory Kenney RCS 05/06/25 1124 Date Natalia Rizvi MD CC: Dr. Mariam Murry MD; No Primary Care Physician Date Dictated: 05/05/25 1403 Date Transcribed: 05/06/25 112 Cotton Buyer: Signed Normal [facility] Emergency Department Summary on 05-05-2025 Emergency Department Summary [facility] Medical Records Department [address] [place] [address] Emergency Department Summary 05/05/25 MR#: [id number] Acct: [id number] Name: MINDY FAULKNER Rep #: [id number] : 1980 44 From: Taran Ortega DO PCP: Care Physician,No Primary Status:REG ER Location: ED HPI History of Present Illness Chief Complaint: Chest Pain Informant: patient Narrative Narrative: Patient is a 44-year-old female with past medical history of type 2 diabetes. She states that she was previously on insulin and pills to help control this but took herself off the medication and try to control her naturally. She states that over the past 3 to 4 days she has been having shortness of breath sensation and in the last roughly 24 hours has also developed generalized chest discomfort. She denies any recent travel surgery or history of DVT/PE. She does admit to smoking but denies any history of COPD or emphysema. She states that she does not have a history of congestive heart failure. She denies any nausea vomiting or diaphoresis associate with chest discomfort but as the shortness of breath sensation has been persistent and now she has associated chest pain she presents for evaluation [facility] Medical History Wears dentures Wears glasses Anxiety [...] ???Medication ???Instructions ???Recorded ???Last Taken ???Type NK 05/05/25 Unknown History Allergy/AdvReac Type Severity Reaction Status Date / Time hydrocodone bitartrate (From AdvReac Vomiting Verified 05/05/25 05:50 Vicodin) hydromorphone HCl (From AdvReac Other Verified 05/05/25 05:50 Dilaudid) tramadol AdvReac Other Verified 05/05/25 05:50 Family History Other Diabetes Surgical History Hx of tooth extraction History of cystoscopy Hidradenitis Social History household members: none Smoking Status: Current every day smoker tobacco type: cigarettes second hand exposure: Yes alcohol intake: former substance use type: marijuana additional social history: Does Not Take Aspirin Does Take Ibuprofen As Needed ROS ROS ED Constitutional Constitutional ED: Denies chills or fever(s) Eyes Eyes: Denies change in vision ENT ENT ED: Denies rhinorrhea or sore throat Cardiovascular Cardiovascular: Reports chest pain and racing heartbeat; Denies palpitations Respiratory/Chest Respiratory/Chest: Reports cough, dyspnea and dyspnea on exertion Gastrointestinal Gastrointestinal: Denies abdominal pain, diarrhea, nausea or vomiting Genitourinary Genitourinary ED: Denies dysuria Musculoskeletal Musculoskeletal: Reports myalgias Integumentary Denies rash Neurologic Neurologic: Denies headache(s) Hematologic/Lymphati c Hematologic/Lymphati c: Denies easy bleeding or easy bruising EXAM Physical Exam Const Vital Signs: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 [facility] [address] [place], [address] Creatinine [Mass/Vol] 0.95 mg/dL Normal 0.70-1.20 [facility] Comment on above: Performed By: #### L 501.5200, L100.0100, L500.4050 #### [facility] [address] [place], [address] ECRCL 70.64 ml/min Normal 50-250 [facility] Comment on above: Performed By: #### L 501.5200, L100.0100, L500.4050 #### [facility] [address] [place], [address] GAP 9 Normal 5-15 [facility] Comment on above: Performed By: #### L 501.5200, L100.0100, L500.4050 #### [facility] [address] [place], [address] GFR/1.73 sq M.predicted among non-blacks MDRD (S/P/Bld) [Vol rate/Area] 75 mL/min/{1.73_m2} Normal >60 [facility] Comment on above: Result Comment: mL/m in/1.73m2 CKD-EPI Creatinine Equation (2020) Performed By: #### L 501.5200, L100.0100, L500.4050 #### [facility] [address] [place], [address] Globulin (S) [Mass/Vol] 3.3 g/dL Normal 2.2-4.2 [facility] Comment on above: Performed By: #### L 501.5200, L100.0100, L500.4050 #### [facility] [address] [place], [address] Glucose [Mass/Vol] 415 mg/dL High 70-99 [facility] Comment on above: Performed By: #### L 501.5200, L100.0100, L500.4050 #### [facility] [address] [place], [address] Potassium [Moles/Vol] 3.6 mmol/L Normal 3.3-5.1 [facility] Comment on above: Result Comment: Hemo lysis present, Results??could be affected. ?? Performed By: #### L 501.5200, L100.0100, L500.4050 #### [facility] [address] [place], [address] Sodium [Moles/Vol] 132 mmol/L Low 133-145 [facility] Comment on above: Performed By: #### L 501.5200, L100.0100, L500.4050 #### [facility] [address] [place], [address] T BILI < 0.15 Normal 0.00-1.30 [facility] Comment on above: Performed By: #### L 501.5200, L100.0100, L500.4050 #### [facility] [address] [place], [address] T PROT 5.6 g/dL Low 5.9-8.4 [facility] Comment on above: Performed By: #### L 501.5200, L100.0100, L500.4050 #### [facility] [address] [place], [address] Urea nitrogen [Mass/Vol] 12 mg/dL Normal 4-19 [facility] Comment on above: Performed By: #### L 501.5200, L100.0100, L500.4050 #### [facility] [address] [place], [address] Emergency Department Summary on 09-23-2024 Emergency Department Summary [facility] Medical Records Department [address] [place] [address] Emergency Department Summary 09/23/24 MR#: [id number] Acct: [id number] Name: MINDY FAULKNER Rep #: [id number] : 1980 44 From: Jose Garza DO [...] not see a primary care physician. [facility] Medical History Wears dentures Wears glasses Anxiety [...] normal res (more content not included)... Normal [facility] Eosinophil percentageOrdered By: Jose Garza on 09-23-2024 Eosinophils/100 WBC (Bld) 2.9 % 0-5 [facility] Epithelial cells.squamous LM Ql (Urine sed)Ordered By: Jose Garza on 09-23-2024 Epithelial cells.squamous LM.HPF (Urine sed) [#/Area] 0 /[HPF] 5-10 [facility] Erythrocyte distribution wid th ratioOrdered By: Jose Garza on 09-23-2024 Erythrocyte distribution width (RBC) [Ratio] 12.0 % 11.6-14.6 [facility] Erythrocyte distribution wid th standard deviationOrdered By: Jose Garza on 09-23-2024 Erythrocyte distribution width (RBC) [Entitic vol] 37.6 fL 35.1-43.9 [facility] Estimation of creatinine nara aranceOrdered By: Jose Garza on 09-23-2024 Estimated Creatinine Clearance Calc 70.64 ml/min 50-250 [facility] GFR/1.73 sq M.predicted maira g non-blacks MDRD (S/P/Bld) [Vol rate/Area]Ordered By: oJse Garza on 09-23-2024 Estimated GFR (MDRD) Non-Af Amer 75 >60 [facility] Comment on above: mL/min/1.73m2 CKD-EP I Creatinine Equation (2020) Glucose Ql (U)Ordered By: Yadira Garza on 09-23-2024 Glucose (U) [Mass/Vol] 1000 mg/dL High Normal [facility] Hematocrit Auto (Bld) [Volum e fraction]Ordered By: Jose Garza on 09-23-2024 Hematocrit (Bld) [Volume fraction] 38.8 % 37-47 [facility] Hemoglobin measurementOrdere d By: Jose Garza on 09-23-2024 Hemoglobin (Bld) [Mass/Vol] 13.5 g/dL 12.0-15.0 [facility] Immature granulocytes/100 WB C Auto (Bld)Ordered By: Jose Garza on 09-23-2024 Immature granulocytes/100 WBC (Bld) 0.300 % 0.0-0.9 [facility] Comment on above: IG% - Immature Granu locytes (promyelocytes, myelocytes and metamyelocytes) > 1% indicates that a LEFT SHIFT is Present. Ketones Test strip Ql (U)Ord ered By: Jose Garza on 09-23-2024 Ketones Ql (U) 5 mg/dl High Negative [facility] - Chemistry and C hemistry - challengeOrdered By: Jose Garza on 09-23-2024 AST [Catalytic activity/Vol] 21 U/L <32 [facility] Comment on above: Hemolysis present, R esults could be affected. Lymphocytes Auto (Unsp spec) [#/Vol]Ordered By: Jose Garza on 09-23-2024 Lymphocytes (Bld) [#/Vol] 2.36 10*3/uL 0.83-4.51 [facility] Lymphocytes/100 WBC Auto (Un sp spec)Ordered By: Jose Garza on 09-23-2024 Lymphocytes/100 WBC (Bld) 35.8 % 19-41 [facility] MCV (mean corpuscular volume ) determinationOrdered By: Jose Garza on 09-23-2024 MCV (RBC) [Entitic vol] 85.7 fL 81-[address] [facility] Magnesiumon 09-23-2024 Magnesium [Mass/Vol] 1.8 mg/dL Normal 1.5-2.2 [facility] Comment on above: Performed By: #### L 501.5200, L100.0100, L500.4050 #### [facility] [address] [place], [place], [id number] Magnesium (Unsp spec) [Mass/ Vol]Ordered By: Jose Garza on 09-23-2024 Magnesium [Mass/Vol] 1.8 mg/dL 1.5-2.2 [facility] Mean corpuscular hemoglobin (MCH) determinationOrdered By: Jose Garza on 09-23-2024 MCH (RBC) [Entitic mass] 29.8 pg 27.0-32.0 [facility] Mean corpuscular hemoglobin concentration (MCHC) determinationOrdered By: Jose Garza on 09-23-2024 MCHC (RBC) [Mass/Vol] 34.8 g/dL 32-36 [facility] Mean platelet volume determi nationOrdered By: Jose Garza on 09-23-2024 Platelet mean volume (Bld) [Entitic vol] 11.0 fL 6.2-12.0 [facility] Microscopic analysis of urin e for red blood cells (RBC)Ordered By: Jose Garza on 09-23-2024 Urine RBC 5-10 SEEN /hpf 0-5 [facility] Monocyte percentageOrdered B y: Jose Garza on 09-23-2024 Monocytes/100 WBC (Bld) 6.8 % 0-[address] [facility] Mucus LM Ql (Urine sed)Order ed By: Jose Garza on 09-23-2024 Mucus Ql (Urine sed) RARE /hpf [facility] Neutrophil percentageOrdered By: Jose Graza on 09-23-2024 Neutrophils/100 WBC (Bld) 53.1 % 47-70 [facility] Nitrite Test strip Ql (U)Ord ered By: Jose Garza on 09-23-2024 Nitrite Ql (U) Negative Negative [facility] Nucleated red blood cell per centageOrdered By: Jose Garza on 09-23-2024 Nucleated RBC/100 WBC (Bld) [Ratio] 0 % 0-5 [facility] Platelet countOrdered By: Yadira Garza on 09-23-2024 Platelets (Bld) [#/Vol] 285 10*3/uL 150-450 [facility] Potassium (Unsp spec) [Mass/ Vol]Ordered By: Emelia Kayla on 09-23-2024 Potassium [Moles/Vol] 3.6 mmol/L 3.3-5.1 [facility] Comment on above: Hemolysis present, R esults could be affected. Protein Test strip Ql (U)Ord ered By: Emelia Kayla on 09-23-2024 Protein Ql (U) 500 mg/dl High Negative [facility] RBC Auto (Bld) [#/Vol]Ordere d By: Emeliaus Freemanantionette on 09-23-2024 RBC (Bld) [#/Vol] 4.53 10*6/uL 4.2-5.[address] [facility] Serum creatinine measurement (mass/volume)Ordered By: Jose Garza on 09-23-2024 Creatinine [Mass/Vol] 0.95 mg/dL 0.70-1.20 [facility] Serum globulin measurementOr dered By: Emeliaus Garza on 09-23-2024 Globulin (S) [Mass/Vol] 3.3 g/dL 2.2-4.[address] [facility] Serum glucose measurement (m ass/volume)Ordered By: Jose Garza on 09-23-2024 Glucose [Mass/Vol] 415 mg/dL High 70-99 [facility] Serum or plasma alanine dunbar otransferase (ALT) measurementOrdered By: Jose Garza on 09-23-2024 ALT [Catalytic activity/Vol] 15 U/L <35 [facility] Serum or plasma albumin richard urement (mass/volume)Ordered By: Jose Garza on 09-23-2024 Albumin [Mass/Vol] 2.2 g/dL Low 3.5-5.0 [facility] Serum or plasma albumin/glob ulin mass ratioOrdered By: Jose Garza on 09-23-2024 Albumin/Globulin [Mass ratio] 0.7 {ratio} Low 0.9-2.4 [facility] Serum or plasma alkaline fili sphatase measurementOrdered By: Jose Garza on 09-23-2024 ALP [Catalytic activity/Vol] 73 U/L 35-104 [facility] Serum or plasma calcium richard urement (mass/volume)Ordered By: Remus Ungur on 09-23-2024 Calcium [Mass/Vol] 8.1 mg/dL 7.6-11.0 [facility] Serum or plasma urea nitroge n measurement (mass/volume)Ordered By: Remus Ungur on 09-23-2024 Urea nitrogen [Mass/Vol] 12 mg/dL 4-19 [facility] Sodium levelOrdered By: Remu s Ungur on 09-23-2024 Sodium [Moles/Vol] 132 mmol/L Low 133-145 [facility] Total proteinOrdered By: Rem us Ungur on 09-23-2024 Protein [Mass/Vol] 5.6 g/dL Low 5.9-8.4 [facility] Urinalysis, Completeon 09-23 BACTERIA 3+ /hpf Normal None Seen [facility] Comment on above: Order Comment: CLEAN CATCH Performed By: #### L 400.0001 #### [facility] [address] [place], [address] Mucus Ql (Urine sed) RARE Normal [facility] Comment on above: Order Comment: CLEAN CATCH Performed By: #### L 400.0001 #### [facility] [address] [place], [address] RBC 5-10 SEEN Normal 0-5 [facility] Comment on above: Order Comment: CLEAN CATCH Performed By: #### L 400.0001 #### [facility] [address] [place], [address] WBC 50-100 SEEN Normal 0-5 [facility] Comment on above: Order Comment: CLEAN CATCH Performed By: #### L 400.0001 #### [facility] [address] [place], [address] EPI,SQUAMOUS 0 SEEN Normal 5-10 [facility] Comment on above: Order Comment: CLEAN CATCH Performed By: #### L 400.0001 #### [facility] [address] [place], [address] Urine blood detectionOrdered By: Remus Kayla on 09-23-2024 Urine Occult Blood 50 /ul High Negative [facility] Urine clarityOrdered By: Rem us Kayla on 09-23-2024 Clarity (U) Cloudy Clear [facility] Urine color determinationOrd ered By: Remus Garza on 09-23-2024 Color (U) Straw Yellow [facility] Urine leukocyte esterase det ection by dipstickOrdered By: Remus Garza on 09-23-2024 Leukocyte esterase Test strip Ql (U) 100 /ul High Negative [facility] Urine pHOrdered By: Jose Un gur on 09-23-2024 pH (U) 6.5 [pH] 5.0 - 8.0 [facility] Urine sediment bacteria coun t by microscopy (number/high power field)Ordered By: Jose Garza on 09-23-2024 Bacteria LM.HPF (Urine sed) [#/Area] 3 /[HPF] None Seen [facility] Urine specific gravity measu rementOrdered By: Remus Garza on 09-23-2024 Specific gravity (U) [Rel density] 1.015 1.002-1.030 [facility] Urobilinogen Ql (U)Ordered B y: Jose Garza on 09-23-2024 Urine Urobilinogen Normal mg/dl Normal [facility] Venous Duplex US - Yoshi Extre mon 09-23-2024 Venous Duplex US - Yoshi Extrem [facility] [address] [place] [address] Venous Duplex US - Yoshi Extrem 09/23/24 1415 MR#: [id number] Acct: [id number] Name: MINDY FAULKNER Rep #: [id number] : 1980 44 From: Horace Perez MD [...] Ordering Physician: Jose Garza Performed By: Parisa Yanez, Amelia 09/23/241957 Date Horace Perez MD CC: Dr. Jose Garza, DO; No Primary Care Physician Date Dictated: 09/23/24 1415 Date Transcribed: 09/23/241957 Cotton Buyer: Signed Normal [facility] White blood cell (WBC) count Ordered By: Jose Garza on 09-23-2024 WBC (Bld) [#/Vol] 6.6 10*3/uL 4.4-11.0 [facility] White blood cell countOrdere d By: Jose Garza on 09-23-2024 Urine WBC 50-100 SEEN /hpf 0-5 [facility] CNPMaisha [facility]-20[facility] TALATMINDY ([id number]) 1980 F Date Time Provider Department 07/08/24 [facility] During your visit today, we recorded the [...] glargine LANTUS 100 UNIT/ML SOLN INSULIN GLARGINE [id number] Pierce Pemberton MD 08-26-2013 [facility] ([id number]) - L. acidophilus-L. rhamnosus 15 billion cell [...] Cyst with Abscess [L05.01] 03/15/2010 NO SHOW [[id number]] 05/01/2013 07/06/2014 Brachial plexus neuropathy [G54.0] 06/04/2013 Neuropathic pain [M79.2] 06/04/2013 Type 2 diabetes mellitus with 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 *10/23/2013 Hidradenitis suppurativa [L73.2] 10/26/2013 HPV test positive [[id number]] 07/16/2014 Tobacco use disorder [F17.200] 12/14/2016 History of substance abuse [F19.11] 07/23/2018 Pain in joint of left shoulder region [M25.512] 09/05/2018 Abnormal mammogram [R92.8] 10/14/2019 Encounter Status:Closed by MALI MERCADO on 07/08/24 [facility] MINDY FAULKNER ([id number]) 1980 F Date Time Provider Department 05/27/24 ANASTASIIA JOAQUIN [facility] During your visit today, we recorded the following information about you: Anastasiia Joaquin MD 05/27/2024 9:17 AM Signed Called Ms. Faulkner at number in chart; verified and . Patient says she is doing alright. She is requesting counseling as her main goal right now. She has not received call yet from behavioral health referral so I let her know to call our office if she does not hear by the end of the week. She is also interested in speaking with our social welfare administrator so I also let her know I would place a consult for [facility] SW. Provided number for suicide/crisis hotline [phone]. Patient has no questions. Anastasiia Joaquin MD 05/27/2024 9:13 AM Allergies As of Date: 05/27/2024 Noted Allergy Reaction DILAUDID (HYDROMORPHONE (BULK)) 07/16/2012 1 - Mental Status Change TRAMADOL 07/23/2015 14 - Other: See Comments Comments: Heart racing VICODIN (HYDROCODONE-ACETAMI NOPHE*07/16/2012 8 - GI Upset Date Reviewed: 05/23/2024 Reviewed by: Margie Thakur LPN - Fully Assessed Primary Visit Diagnosis:Mood disorder (HCC) [F39] Order(s):CONSULT TO SWEET POTATO DISINTEGRATOR ([facility] ONLY) [[id number]] Order #: [id number]: 1 Prescriptions as of 05/27/2024 - ibuprofen [...] glargine LANTUS 100 UNIT/ML SOLN INSULIN GLARGINE [id number] Pierce Pemberton MD 08-26-2013 [facility] ([id number]) - L. acidophilus-L. rhamnosus 15 billion cell [...] with meals. - insulin glargine (LANTUS SOLOSTAR, LIBBY BARRAGAN) 100 unit/mL (3 mL) inpn [...] Cyst with Abscess [L05.01] 03/15/2010 NO SHOW [[id number]] 05/01/2013 07/06/2014 Brachial plexus neuropathy [G54.0] 06/04/2013 Neuropathic pain [M79.2] 06/04/2013 Type 2 diabetes mellitus with 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 *10/23/2013 Hidradenitis suppurativa [L73.2] 10/26/2013 HPV test positive [[id number]] 07/16/2014 Tobacco use disorder [F17.200] 12/14/2016 History of substance abuse [F19.11] 07/23/2018 Pain in joint of left shoulder region [M25.512] 09/05/2018 Abnormal mammogram [R92.8] 10/14/2019 Encounter Status:Closed by ANASTASIIA JOAQUIN on 05/27/24 [facility] CNOVon 05-23-2024 CNOV Office Visit ([facility]) MINDY FAULKNER ([id number]) 1980 F Date Time Provider Department 05/23/24 10:20 AM ANASTASIIA JOAQUIN [facility] During your visit today, we recorded the following information about you: Temperature Pulse Respiration Blood pressure 98 degrees 99/minute 18/minute 170/98 Weight Last Period 63.3 kg 04/18/24 Anastasiia Joaquin MD 05/23/2024 7:33 PM Signed Anastasiia Joaquin MD [facility] [address] [place] [address] [facility] / [address] [place] [address] Visit Date: May 23, 2024 Name: Mindy Faulkner Date of : 1980 MRN/E #: [id number] Chief Complaint: Patient presents with: Establish Care: RT side arm, breast, and leg w/o injury x 1 month Patient has hidradenitis thinks pain is associated with disorder Subjective Mindy Faulkner is a 43 year old female here for a new patient visit to establish care and also for mood concerns Previously received care at [facility] 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 [...] she would never harm herself -formerly saw [facility] - Dr. Corey, on medicine that altered her mind and she stopped going - Initially mentioned [...] counseling, very concerned that she would be locked up if she were to share details about [...] glargine LANTUS 100 UNIT/ML JONNY INSULIN GLARGINE [id number] Pierce Pemberton MD 08-26-2013 [facility] ([id number]) (Patient not taking: Reported on 05/23/2024) L. [...] gauge mi (more content not included)... Normal [facility] Absolute lymphocyte countOrd ered By: Dr. Hastings on 12-21-2022 Lymphocytes Auto (Unsp spec) [#/Vol] 2.55 10*3/uL 0.83-4.51 [facility] Basophil percentageOrdered B y: Dr. Hastings on 12-21-2022 Basophils/100 WBC (Bld) 1.1 % 0-[address] [facility] Bilirubin [Mass/Vol] 0.20 mg/dL 0.20-1.00 [facility] Comment on above: For patients on eltr ombopag therapy, use of Dimension [place] TBIL is not recommended. Chloride [Moles/Vol] 106 mmol/L 98-107 [facility] Eosinophils/100 WBC (Bld) 2.3 % 0-5 [facility] Glucose [Mass/Vol] 291 mg/dL 74-106 [facility] Comment on above: Glucose result great er than or equal to 200 mg/dLsuggests DIABETES MELLITUS per A.D.A. criteria. Neutrophils (Bld) [#/Vol] 2.1 10*3/uL 2.0-7.7 [facility] Neutrophils/100 WBC (Bld) 39.7 % 47-70 [facility] Potassium [Moles/Vol] 4.0 mmol/L 3.5-5.1 [facility] Protein [Mass/Vol] 6.8 g/dL 6.4-8.2 [facility] Sodium [Moles/Vol] 138 mmol/L 136-145 [facility] WBC (Bld) [#/Vol] 5.3 10*3/uL 4.4-11.0 [facility] Blood erythrocytes count (nu mber/volume)Ordered By: Dr. Hastings on 12-21-2022 RBC (Bld) [#/Vol] 4.35 10*6/uL 4.2-5.[address] [facility] Blood hemoglobin measurement (mass/volume)Ordered By: Dr. Hastings on 12-21-2022 Hemoglobin (Bld) [Mass/Vol] 12.8 g/dL 12.0-15.0 [facility] Blood lymphocytes/100 leukoc ytesOrdered By: Dr. Hastings on 12-21-2022 Lymphocytes/100 WBC (Bld) 48.4 % 19-41 [facility] Blood monocytes/100 leukocyt esOrdered By: Dr. Hastings on 12-21-2022 Monocytes/100 WBC (Bld) 8.3 % 0-[address] [facility] Blood platelet mean volumeOr dered By: Dr. Hastings on 12-21-2022 Platelet mean volume (Bld) [Entitic vol] 10.9 fL 6.2-12.0 [facility] Determination of erythrocyte mean corpuscular volume (MCV)Ordered By: Dr. Hastings on 12-21-2022 MCV (RBC) [Entitic vol] 86.9 fL 81-[address] [facility] Erythrocyte sedimentation ra teOrdered By: Dr. Hastings on 12-21-2022 ESR (Bld) [Velocity] 12 mm/h 0-30 [facility] Hematocrit Auto (Bld) [Volum e fraction]Ordered By: Dr. Hastings on 12-21-2022 Hematocrit (Bld) [Volume fraction] 37.8 % 37-47 [facility] Laboratory - Chemistry and C hemistry - challengeOrdered By: Dr. Hastings on 12-21-2022 ALP [Catalytic activity/Vol] 79 U/L 45-117 [facility] ALT [Catalytic activity/Vol] 19 U/L 13-56 [facility] CK [Catalytic activity/Vol] 80 U/L 26-192 [facility] CO2 [Moles/Vol] 28.0 mmol/L 21.0-32.0 [facility] Globulin (S) [Mass/Vol] 3.8 g/dL 2.2-4.[address] [facility] Urea nitrogen/Creatinine [Mass ratio] 17.2 mg/mg 10-20 [facility] Laboratory - Hematology and Cell countsOrdered By: Dr. Hastings on 12-21-2022 Erythrocyte distribution width (RBC) [Entitic vol] 39.6 fL 35.1-43.9 [facility] Erythrocyte distribution width (RBC) [Ratio] 12.4 % 11.6-14.6 [facility] Immature granulocytes/100 WBC (Bld) 0.200 % 0.0-0.9 [facility] Comment on above: IG% - Immature Granu locytes (promyelocytes, myelocytes and metamyelocytes) > 1% indicates that a LEFT SHIFT is Present. MCH (RBC) [Entitic mass] 29.4 pg 27.0-32.0 [facility] Nucleated RBC/100 WBC (Bld) [Ratio] 0 % 0-5 [facility] MCHC Auto (RBC) [Mass/Vol]Or dered By: Dr. Hastings on 12-21-2022 MCHC (RBC) [Mass/Vol] 33.9 g/dL 32-36 [facility] No Panel InformationOrdered By: Dr. Hastings on 12-21-2022 Estimated Creatinine Clearance Calc 64.52 ml/min [facility] Estimated GFR (MDRD) Amer 84 mL/min >60 [facility] Comment on above: GFR Calc Estimated GFR (MDRD) Non-Af Amer 70 mL/min >60 [facility] Comment on above: Non- GFR Calc Platelets bldOrdered By: Dr. Hastings on 12-21-2022 Platelets (Bld) [#/Vol] 244 10*3/uL 150-450 [facility] Serum or plasma albumin richard urement (mass/volume)Ordered By: Dr. Hastings on 12-21-2022 Albumin [Mass/Vol] 3.0 g/dL 3.2-5.0 [facility] Serum or plasma albumin/glob ulin mass ratioOrdered By: Dr. Hastings on 12-21-2022 Albumin/Globulin [Mass ratio] 0.8 {ratio} 0.9-2.4 [facility] Serum or plasma calcium richard urement (mass/volume)Ordered By: Dr. Hastings on 12-21-2022 Calcium [Mass/Vol] 8.8 mg/dL 8.5-10.1 [facility] Serum or plasma creatinine m easurement (mass/volume)Ordered By: Dr. Hastings on 12-21-2022 Creatinine [Mass/Vol] 0.93 mg/dL 0.55-1.02 [facility] Comment on above: The validity of the calculated GFR & GFRAA in patients over 70 years has not been determined. Clinical correlation is essential. Serum or plasma urea nitroge n measurement (mass/volume)Ordered By: Dr. Hastings on 12-21-2022 Urea nitrogen [Mass/Vol] 16 mg/dL 7-18 [facility] Thin prep Papanicolaou smear with manual screeningOrdered By: Dr. Hastings on 12-21-2022 Thin prep Papanicolaou smear with manual screening 12 U/L 15-37 [facility] Thin prep Papanicolaou smear with manual screening 4 5-15 [facility] Basophil percentageon 2021 Basophil percentage 0-5 SEEN /hpf 0-5 [facility] Work Phone: Bilirubin Test strip Ql (U)o n 06-26-2022 Bilirubin Ql (U) Negative Negative [facility] Work Phone: Ketones Test strip Ql (U)on 06-26-2022 Ketones Ql (U) 5 mg/dl Negative [facility] Work Phone: Mucus LM Ql (Urine sed)on Mucus Ql (Urine sed) 0 SEEN /hpf [facility] Work Phone: Nitrite Test strip Ql (U)on 06-26-2022 Nitrite Ql (U) Negative Negative [facility] Work Phone: Protein Test strip Ql (U)on 06-26-2022 Protein Ql (U) 100 mg/dl Negative [facility] Work Phone: Squamous epithelial cells de tection in urine sediment by light microscopyon 06-26-2022 Epithelial cells.squamous LM Ql (Urine sed) 0 SEEN /hpf 5-10 [facility] Work Phone: Urine blood detectionon 06-02 RBC Ql (U) 150 /ul Negative [facility] Work Phone: RBC Ql (U) 0-5 SEEN /hpf 0-5 [facility] Work Phone: Urine clarityon 06-26-2022 Clarity (U) Sl. Cloudy Clear [facility] Work Phone: Urine color determinationon 06-26-2022 Color (U) Straw Yellow [facility] Work Phone: Urine glucose detectionon Glucose Ql (U) 1000 mg/dl Normal [facility] Work Phone: Urine leukocyte esterase det ection by dipstickon 06-26-2022 Leukocyte esterase Test strip Ql (U) 25 /ul Negative [facility] Work Phone: Urine pHon 06-26-2022 pH (U) 5.0 [pH] 5.0 - 8.0 [facility] Work Phone: Urine sediment bacteria coun t by microscopy (number/high power field)on 06-26-2022 Bacteria LM.HPF (Urine sed) [#/Area] 4 /[HPF] None Seen [facility] Work Phone: Urine specific gravity measu rementon 06-26-2022 Specific gravity (U) [Rel density] 1.020 1.002-1.030 [facility] Work Phone: Urobilinogen Auto test strip Ql (U)on 06-26-2022 Urobilinogen Ql (U) Normal mg/dl Normal [facility] Work Phone: PROGRESSon 08-01-2018 Protein mass conc HNO ID: [id number] Author: Aury (Ct) CARRINGTON Arellano Service: (none) Author Type: Clinical Chief Of Planning Type: Progress Notes Filed: 08/01/2018 9:36 AM Note Text: NAME:Mindy Faulkner DATE: August 01, 2018 CCF#: [id number] Upper Extremity X-Ray(s): Shoulder, AP / TRUE AP / AXILLARY / SUPRA OUTLET left COMPLETED TECH ID SIGN: AURY ARELLANO [facility] XR SHLDR >/=3V AP/WISAM AP/OTH R [...] and soft tissues are unremarkable. IMPRESSION: Negative Cotton Buyer: PSCB Transcribe Date/Time: Aug 01 2018 10:06A Dictated by : PIERCE OLIVEROS MD This examination was interpreted and the report reviewed and electronically signed by: PIERCE OLIVEROS MD on Aug 01 2018 10:06AM EST [id number] [facility] Microbiology: Culture, Deep Woundon 03-26-2017 CUDW . Invalid Interpretation Code [facility] Work Phone: GE use only - for LinkLogic import when terms are not otherwise specified . Invalid Interpretation Code [facility] Work Phone: [phone] Microbiology: (P) Culture, D eep Woundon 03-25-2017 GE use only - for LinkLogic import when terms are not otherwise specified Vancomycin $ 1 S Invalid Interpretation Code [facility] Work Phone: [phone] Lab Report: Basic Metabolic Profile (BMP)on 03-24-2017 Anion gap 8 mmol/L Invalid Interpretation Code 5-15 [facility] Work Phone: [phone] BUN/Creatinine Ratio 21.1 RATIO High 10-[address] [facility] Work Phone: [phone] Calcium 8.4 mg/dL Low 8.5-10.1 [facility] Work Phone: [phone] Chloride 103 mmol/L Invalid Interpretation Code 98-107 [facility] Work Phone: [phone] CO2 24.0 mmol/L Invalid Interpretation Code 21.0-32.0 [facility] Work Phone: [phone] Creatinine 96.54 mL/min Invalid Interpretation Code [facility] Work Phone: [phone] Creatinine 0.66 mg/dL Invalid Interpretation Code 0.55-1.02 [facility] Work Phone: [phone] eGFR (non-black) 128 mL/min/{1.73_m2} Invalid Interpretation Code >60 [facility] Work Phone: [phone] eGFR (non-black) 106 mL/min/{1.73_m2} Invalid Interpretation Code >60 [facility] Work Phone: [phone] Glucose 282 mg/dL High 70-110 [facility] Work Phone: [phone] Potassium 4.0 mmol/L Invalid Interpretation Code 3.5-5.1 [facility] Work Phone: [phone] Sodium 135 mmol/L Low 136-145 [facility] Work Phone: [phone] Urea nitrogen 14 mg/dL Invalid Interpretation Code 7-18 [facility] Work Phone: [phone] Lab Report: Bedside Glucoseo n 03-24-2017 Glucose 288 mg/dL High 70-110 [facility] Work Phone: [phone] Lab Report: CBC-Complete Blo od Cnt No Diffon 03-24-2017 Erythrocytes (RBC) 4.31 10*6/uL Invalid Interpretation Code 4.2-5.4 [facility] Work Phone: [phone] Hematocrit (HCT) 38.2 % Invalid Interpretation Code 37-47 [facility] Work Phone: [phone] Hemoglobin (HGB) 12.9 g/dL Invalid Interpretation Code 12.0-15.0 [facility] Work Phone: [phone] MCH 29.9 pg Invalid Interpretation Code 27.0-32.0 [facility] Work Phone: [phone] MCHC 33.8 G/GL Invalid Interpretation Code 32-36 [facility] Work Phone: [phone] MCV 88.6 fL Invalid Interpretation Code 81-99 [facility] Work Phone: [phone] Platelets 190 10*3/mm3 Invalid Interpretation Code 150-450 [facility] Work Phone: [phone] PMV by Devang 11.9 fL Invalid Interpretation Code 6.2-12.0 [facility] Work Phone: [phone] RDW-CA 12.2 % Invalid Interpretation Code 11.6-14.6 [facility] Work Phone: [phone] red blood cell distribution width, size density 38.8 fL Invalid Interpretation Code 35.1-43.9 [facility] Work Phone: [phone] WBC (Leukocytes) 7.8 10*3/uL Invalid Interpretation Code 4.4-11.0 [facility] Work Phone: [phone] Microbiology: Fungus Stainon 03-24-2017 fungus stain . Invalid Interpretation Code [facility] Work Phone: [phone] Replaced Document: Basic Met abolic Profile (BMP)on 03-24-2017 Anion gap 4 molar conc 8 Invalid Interpretation Code 5-15 [facility] Work Phone: [phone] CO2 ppres (BldV) 24.0 mmol/L Invalid Interpretation Code 21.0-32.0 [facility] Work Phone: [phone] EST GFR - AA 128 mL/min Invalid Interpretation Code >60 [facility] Work Phone: [phone] Glucose mass conc 282 mg/dL High 70-110 [facility] Work Phone: [phone] Replaced Document: Bedside G scarletoseon 03-24-2017 Glucose mass conc 288 mg/dL High 70-110 [facility] Work Phone: [phone] Replaced Document: CBC-Compl ete Blood Cnt No Diffon 03-24-2017 Erythrocyte distribution width Auto Ratio (RBC) 38.8 fL Invalid Interpretation Code 35.1-43.9 [facility] Work Phone: [phone] Replaced Document: Fungus St meliza 03-24-2017 FUNST . Invalid Interpretation Code [facility] Work Phone: [phone] Lab Report: Basic Metabolic Profile (BMP)on 03-23-2017 Anion gap 9 mmol/L Invalid Interpretation Code 5-15 [facility] Work Phone: [phone] BUN/Creatinine Ratio 19.6 RATIO Invalid Interpretation Code 10-20 [facility] Work Phone: [phone] Calcium 8.3 mg/dL Low 8.5-10.1 [facility] Work Phone: [phone] Chloride 101 mmol/L Invalid Interpretation Code 98-107 [facility] Work Phone: [phone] CO2 24.0 mmol/L Invalid Interpretation Code 21.0-32.0 [facility] Work Phone: [phone] Creatinine 82.75 mL/min Invalid Interpretation Code [facility] Work Phone: [phone] Creatinine 0.77 mg/dL Invalid Interpretation Code 0.55-1.02 [facility] Work Phone: [phone] eGFR (non-black) 90 mL/min/{1.73_m2} Invalid Interpretation Code >60 [facility] Work Phone: [phone] eGFR (non-black) 109 mL/min/{1.73_m2} Invalid Interpretation Code >60 [facility] Work Phone: [phone] Glucose 307 mg/dL High 70-110 [facility] Work Phone: [phone] Potassium 3.8 mmol/L Invalid Interpretation Code 3.5-5.1 [facility] Work Phone: [phone] Sodium 134 mmol/L Low 136-145 [facility] Work Phone: [phone] Urea nitrogen 15 mg/dL Invalid Interpretation Code 7-18 [facility] Work Phone: [phone] Lab Report: Bedside Glucoseo n 03-23-2017 Glucose 316 mg/dL High 70-110 [facility] Work Phone: [phone] Lab Report: CRPon 03-23-2017 C reactive protein (CRP) 0.636 mg/dL High Uni ts converted. See lab report for original value. [facility] Work Phone: [phone] Lab Report: Erythrocyte Sed Rateon 03-23-2017 Erythrocyte sedimentation rate 33 mm/h High 0-20 [facility] Work Phone: [phone] Lab Report: Hemoglobin A1con 03-23-2017 HbA1c 11.1 % High 4.2-6.3 [facility] Work Phone: [phone] Lab Report: Prealbuminon Prealbumin 22.3 mg/dL Invalid Interpretation Code 20.0-40.0 [facility] Work Phone: [phone] Microbiology: (P) Culture, D eep Woundon 03-23-2017 GE use only - for LinkLogic import when terms are not otherwise specified . Invalid Interpretation Code [facility] Work Phone: [phone] Replaced Document: (P) CBC-C omplete Blood Cnt No Diffon 03-23-2017 Erythrocytes (RBC) 4.55 10*6/uL Invalid Interpretation Code 4.2-5.4 [facility] Work Phone: [phone] Hematocrit (HCT) 40.1 % Invalid Interpretation Code 37-47 [facility] Work Phone: [phone] Hemoglobin (HGB) 13.6 g/dL Invalid Interpretation Code 12.0-15.0 [facility] Work Phone: [phone] MCH 29.9 pg Invalid Interpretation Code 27.0-32.0 [facility] Work Phone: [phone] MCHC 33.9 G/GL Invalid Interpretation Code 32-36 [facility] Work Phone: [phone] MCV 88.1 fL Invalid Interpretation Code 81-99 [facility] Work Phone: [phone] Platelets 215 10*3/mm3 Invalid Interpretation Code 150-450 [facility] Work Phone: [phone] PMV by Devang 11.5 fL Invalid Interpretation Code 6.2-12.0 [facility] Work Phone: [phone] RDW-CA 12.4 % Invalid Interpretation Code 11.6-14.6 [facility] Work Phone: [phone] red blood cell distribution width, size density 39.7 fL Invalid Interpretation Code 35.1-43.9 [facility] Work Phone: [phone] WBC (Leukocytes) 13.3 10*3/uL High 4.4-11.0 [facility] Work Phone: [phone] Replaced Document: Prealbumi non 03-23-2017 Prealbumin Elph mass conc 22.3 mg/dL Invalid Interpretation Code 20.0-40.0 [facility] Work Phone: [phone] Lab Report: ,Urineo n 03-22-2017 Urine, test (choriogonadotropin presence) . Invalid Interpretation Code [facility] Work Phone: [phone] Replaced Document: ,Urineon 03-22-2017 HCG.beta subunit ( test) Ql (U) . Invalid Interpretation Code [facility] Work Phone: [phone] Office Visit: evaluation hid radenitison 03-07-2017 Fall risk assessment No Invalid Interpretation Code [facility] Work Phone: [phone] Tobacco smoking status NHIS Current every day smoker Invalid Interpretation Code [facility] Work Phone: [phone] Tobacco smoking status NHIS Never Invalid Interpretation Code [facility] Work Phone: [phone] Office Visit: evaluation hid radenitison 07-12-2015 Dietary management education, guidance, and counseling (procedure) yes Invalid Interpretation Code [facility] Work Phone: [phone] Documentation of current medications (procedure) Done Invalid Interpretation Code [facility] Work Phone: [phone] Smoking cessation education (procedure) yes Invalid Interpretation Code [facility] Work Phone: [phone] Tobacco smoking status NHIS Never Invalid Interpretation Code [facility] Work Phone: [phone] Tobacco smoking status NHIS Current every day smoker Invalid Interpretation Code [facility] Work Phone: [phone] Tobacco use [facility] Current every day smoker Invalid Interpretation Code [facility] Work Phone: [phone] Microbiology: Culture, Deep Woundon 01-20-2015 GE use only - for LinkLogic import when terms are not otherwise specified Cult, AnaerobicNo anaerobic bacteria isolated. Invalid Interpretation Code [facility] Work Phone: [phone] Lab Report: Basic Metabolic Profile (BMP)on 10-21-2014 Anion gap 8 mmol/L Invalid Interpretation Code 5-15 [facility] Work Phone: [phone] BUN/Creatinine Ratio 12.9 RATIO Invalid Interpretation Code 10-20 [facility] Work Phone: [phone] Calcium 7.7 mg/dL Low 8.5-10.1 [facility] Work Phone: [phone] Chloride 107 mmol/L Invalid Interpretation Code 98-107 [facility] Work Phone: [phone] CO2 24.0 mmol/L Invalid Interpretation Code 21.0-32.0 [facility] Work Phone: [phone] Creatinine 0.7 mg/dL Invalid Interpretation Code 0.6-1.0 [facility] Work Phone: [phone] eGFR (non-black) 101 mL/min/{1.73_m2} Invalid Interpretation Code >60 [facility] Work Phone: [phone] eGFR (non-black) 122 mL/min/{1.73_m2} Invalid Interpretation Code >60 [facility] Work Phone: [phone] Glucose 131 mg/dL High 70-110 [facility] Work Phone: [phone] Potassium 3.5 mmol/L Invalid Interpretation Code 3.5-5.1 [facility] Work Phone: [phone] Sodium 139 mmol/L Invalid Interpretation Code 136-145 [facility] Work Phone: [phone] Urea nitrogen 9 mg/dL Invalid Interpretation Code 7-18 [facility] Work Phone: [phone] Lab Report: CBC-Complete Blo od Cnt No Diffon 10-21-2014 Erythrocytes (RBC) 4.32 10*6/uL Invalid Interpretation Code 4.2-5.4 [facility] Work Phone: [phone] Hematocrit (HCT) 38.5 % Invalid Interpretation Code 37-47 [facility] Work Phone: [phone] Hemoglobin (HGB) 13.0 g/dL Invalid Interpretation Code 12.0-15.0 [facility] Work Phone: [phone] MCH 30.1 pg Invalid Interpretation Code 27.0-32.0 [facility] Work Phone: [phone] MCHC 33.8 G/GL Invalid Interpretation Code 32-36 [facility] Work Phone: [phone] MCV 89.1 fL Invalid Interpretation Code 81-99 [facility] Work Phone: [phone] Platelets 191 10*3/mm3 Invalid Interpretation Code 150-450 [facility] Work Phone: [phone] PMV by Devang 10.7 fL Invalid Interpretation Code 6.2-12.0 [facility] Work Phone: [phone] red blood cell distribution width, size density 42.2 fL Invalid Interpretation Code 35.1-43.9 [facility] Work Phone: [phone] WBC (Leukocytes) 6.1 10*3/uL Invalid Interpretation Code 4.4-11.0 [facility] Work Phone: [phone] Lab Report: Prealbuminon Prealbumin 19.9 mg/dL Low 20.0-40.0 [facility] Work Phone: [phone] Lab Report: Hemoglobin A1con 07-21-2014 HbA1c 10.9 % Critically high 4.2-6.3 [facility] Work Phone: [phone] Microbiology: STEVIEORSLBon 04- fungus culture isolated from skin, hair, nails NO YEAST OR MOLD ISOLATED AFTER 4 WEEKS. Normal [facility] Work Phone: [phone] fungus stain FUNGUS STAIN No yeast or mold observed. Normal [facility] Work Phone: [phone] Lab Report: PTTon 04-25-2011 aPTT 30.9 s Normal 24.1-36.2 [facility] Work Phone: [phone] Vital Signs Date Time Vital Sign Value Performing Clinician Facility 09-23-2024 15:40-0400 Body temperature 96.5 [degF] No Primary Care Physician [facility] 09-23-2024 15:40-0400 Diastolic blood pressure 106 mm[Hg] No Primary Care Physician [facility] 09-23-2024 15:40-0400 Heart rate 105 /min No Primary Care Physician [facility] 09-23-2024 15:40-0400 Respiratory rate 16 /min No Primary Care Physician [facility] 09-23-2024 15:40-0400 SaO2% (BldA) [Mass fraction] 100 % No Primary Care Physician [facility] 09-23-2024 15:40-0400 Systolic blood pressure 175 mm[Hg] No Primary Care Physician [facility] 09-23-2024 13:04-0400 Body height 160.02 cm No Primary Care Physician [facility] 09-23-2024 13:04-0400 Body mass index (BMI) [Ratio] 27.7 kg/m2 No Primary Care Physician [facility] 09-23-2024 13:04-0400 Body weight 71 kg No Primary Care Physician [facility] 05-23-2024 10:49-0500 Body mass index (BMI) [Ratio] 23.96 kg/m2 Anastasiia Joaquin MD Work Phone: [facility] 05-23-2024 10:49-0500 Body temperature 98.01 [degF] Anastasiia Joaquin MD Work Phone: [facility] 05-23-2024 10:49-0500 Body weight 63.32 kg Anastasiia Joaquin MD Work Phone: [facility] 05-23-2024 10:49-0500 Diastolic blood pressure 98 mm[Hg] Anastasiia Joaquin MD Work Phone: [facility] 05-23-2024 10:49-0500 Heart rate 99 /min Anastasiia Joaquin MD Work Phone: [facility] 05-23-2024 10:49-0500 Respiratory rate 18 /min Anastasiia Joaquin MD Work Phone: [facility] 05-23-2024 10:49-0500 SaO2% (BldA) [Mass fraction] 100 % Anastasiia Joaquin MD Work Phone: [facility] 05-23-2024 10:49-0500 Systolic blood pressure 170 mm[Hg] Anastasiia Joaquin MD Work Phone: [facility] 12-21-2022 18:24-0400 Diastolic blood pressure 97 mm[Hg] [facility] 12-21-2022 18:24-0400 Heart rate 124 /min [facility] 12-21-2022 18:24-0400 Respiratory rate 20 /min [facility] 12-21-2022 18:24-0400 SaO2% (BldA) [Mass fraction] 100 % [facility] 12-21-2022 18:24-0400 Systolic blood pressure 154 mm[Hg] [facility] 12-21-2022 17:01-0400 Body mass index (BMI) [Ratio] 26.1 kg/m2 [facility] 12-21-2022 17:01-0400 Body weight 66.[address] [facility] 12-21-2022 16:37-0400 Body height 160.[address] [facility] 12-21-2022 16:37-0400 Body temperature 97.9 [degF] [facility] 06-26-2022 11:29-0500 Body height 160.[address] [facility] Work Phone: 06-26-2022 11:29-0500 Body mass index (BMI) [Ratio] 28.3 kg/m2 [facility] Work Phone: 06-26-2022 11:29-0500 Body temperature 98.2 [degF] [facility] Work Phone: 06-26-2022 11:29-0500 Body weight 72.[address] [facility] Work Phone: 06-26-2022 11:29-0500 Diastolic blood pressure 98 mm[Hg] [facility] Work Phone: 06-26-2022 11:29-0500 Heart rate 125 /min [facility] Work Phone: 06-26-2022 11:29-0500 Respiratory rate 18 /min [facility] Work Phone: 06-26-2022 11:29-0500 SaO2% (BldA) [Mass fraction] 100 % [facility] Work Phone: 06-26-2022 11:29-0500 Systolic blood pressure 149 mm[Hg] [facility] Work Phone: 03-24-2017 06:39-0400 Body surface area Derived from formula 96.54 mL/min Pierce Pemberton MD [facility] Work Phone: 03-07-2017 11:21-0400 BMI (Body Mass Index) 30.04 kg/m2 Pierce Pemberton MD [facility] Work Phone: 03-07-2017 11:21-0400 Body Temperature 98.6 [degF] Pierce Pemberton MD [facility] Work Phone: 03-07-2017 11:21-0400 BP Diastolic 88 mm[Hg] Pierce Pemberton MD [facility] Work Phone: 03-07-2017 11:21-0400 BP Systolic 138 mm[Hg] Pierce Pemberton MD [facility] Work Phone: 03-07-2017 11:21-0400 BSA (Body Surface Area) 1.87 m2 Pierce Pemberton MD [facility] Work Phone: 03-07-2017 11:21-0400 Height 163.83 cm Pierce Pemberton MD [facility] Work Phone: 03-07-2017 11:21-0400 Respiratory Rate 20 /min Pierce Pemberton MD [facility] Work Phone: 03-07-2017 11:21-0400 Weight 80.65 kg Pierce Pemberton MD [facility] Work Phone: 07-12-2015 15:39-0500 BMI (Body Mass Index) 27.17 kg/m2 [facility] Work Phone: 07-12-2015 15:39-0500 Body Temperature 99.4 [degF] Porsha Salas [facility] Work Phone: 07-12-2015 15:39-0500 BP Diastolic 69 mm[Hg] Porsha Salas [facility] Work Phone: 07-12-2015 15:39-0500 BP Systolic 126 mm[Hg] Porsha Salas [facility] Work Phone: 07-12-2015 15:39-0500 BSA (Body Surface Area) 1.79 m2 Porshaedson Salas [facility] Work Phone: 07-12-2015 15:39-0500 Pulse (Heart Rate) 122 /min Porshaedson Steveer [facility] Work Phone: 07-12-2015 15:39-0500 Respiratory Rate 20 /min Porsha Salas [facility] Work Phone: 07-12-2015 15:39-0500 Weight 72.94 kg Porsha Salas [facility] Work Phone: 07-29-2014 15:07-0500 BP Diastolic 92 mm[Hg] Porshaedson Urbanmeglizabether [facility] Work Phone: 07-29-2014 15:07-0500 BP Systolic 130 mm[Hg] Porshaedson Steveer [facility] Work Phone: 07-14-2014 15:51-0500 BP Diastolic 87 mm[Hg] Porsha Schmegneger [facility] Work Phone: 07-14-2014 15:51-0500 BP Systolic 123 mm[Hg] Porsha Salas [facility] Work Phone: 03-14-2012 15:25-0400 Height 163.83 cm Porsha Salas [facility] Work Phone: Encounters Encounter Date Encounter Type Care Provider Facility Start: 05-05-2025 ambulatory Natalia Dmitri [facility] Start: 05-05-2025 ambulatory Mariam Murry [facility] Start: 05-05-2025 End: 05-05-2025 Evaluation and management of inpatient Mariam Wickliffe Facility:[facility] Start: 09-24-2024 End: 09-24-2024 ambulatory Renetta Murillo PACKAGE REINSPECTOR [facility] Start: 09-24-2024 End: 09-24-2024 Patient encounter procedure Renetta Murillo PACKAGE REINSPECTOR [facility] Comment on above: ED outreach (09/23/24 [facility] ) Start: 09-23-2024 End: 09-23-2024 Emergency department patient visit No Primary Care Physician -Emergency Department Work Phone: Start: 07-08-2024 End: 07-08-2024 [facility] Comment on above: Appointment Start: 06-02-2024 End: 06-02-2024 Patient encounter procedure Cristina VANEGASW Work Phone: [facility] Comment on above: Needs assistance wit h community resources (Primary Dx) Start: 05-27-2024 End: 05-27-2024 Telephone encounter Anastasiia Joaquin MD Work Phone: [facility] Start: 05-23-2024 End: 05-23-2024 ambulatory RIYA Carissa JEAN CLAUDE Facility:[facility] Start: 05-23-2024 End: 05-23-2024 Patient encounter procedure Anastasiia Joaquin MD Work Phone: [facility] Comment on above: Mood disorder (HCC) (Primary Dx); Elevated blood pressure reading without diagnosis of hypertension Start: 12-21-2022 End: 12-21-2022 Emergency department patient visit [facility]-Emergency Department Start: 07-12-2022 End: 07-12-2022 Nursing evaluation of patient and report Nurse Pnob [facility] Work Phone: OB/Gynecology Comment on above: Missed menses (Prima ry Dx) Start: 06-26-2022 End: 06-26-2022 [facility] Start: 12-28-2021 ambulatory Joey Bradshaw MD Work Phone: [facility] [place] Start: 10-14-2021 ambulatory Kolby Fisher LPN [facility] Comment on above: PHMA/Care Gap Outrea ch Start: 08-01-2018 End: 08-01-2018 Patient encounter procedure [facility] Procedures Date Procedure Procedure Detail Performing Clinician [...] Start: 07-12-2015 End: 10-13-2015 Follow Up Appt Vivien Pemberton MD Start: 07-12-2015 End: 10-13-2015 Follow Up Appt Vivien Pemberton MD Start: 07-29-2014 End: 08-05-2014 Follow up Appt 1 week Pierce Pemberton MD Start: 07-29-2014 End: 08-05-2014 Follow up Appt 1 week Pierce Pemberton MD Start: 07-14-2014 End: 07-20-2014 Follow Up Appt Other Pierce Pemberton MD Start: 07-14-2014 End: 07-20-2014 Follow Up Appt Vivien Pemberton MD Start: 08-26-2013 End: 08-27-2013 Follow Up Appt Other Pierce Pemberton MD Start: 08-26-2013 End: 08-27-2013 Follow Up Appt Vivien Pemberton MD Plan of Treatment Date Care Activity Detail Author Start: 07-02-2043 ONE PNEUMOVAX PRIOR TO AGE 64 ONE PNEUMOVAX PRIOR TO AGE 64 [facility] Comment on above: Postponed from 1995 (Postponed - N ot Clinically Indicated) Start: 07-02-2043 PNEUMOCOCCAL (1 - PCV) PNEUMOCOCCAL (1 - PCV) [facility] Comment on above: Postponed from 1985 (Postponed - N ot Clinically Indicated) Start: 07-02-2043 Pneumococcal vaccination Pneumococcal Vaccine (1 of 2 - PCV) [facility] Comment on above: Postponed from 1985 (Postponed - N ot Clinically Indicated) Postponed from 07/07 (Postponed - Not Clinically Indicated) Start: 05-23-2025 Annual PCP Team Chronic Disease Visit Annual PCP Team Chronic Disease Visit [facility] Start: 09-23-2024 [facility] Start: 09-02-2024 End: 09-02-2024 Patient encounter procedure 09/02/2024 10:00 AM EST Office Visit [facility] [address] [place], [place] [id number] Marciano Church DO [address] [place], [place] [id number] New patient [facility] Comment on above: New patient Start: 2024 Screening for malignant neoplasm of colon [facility] Start: 03-02-2024 Covid-19 Vaccine ( season) Covid-19 Vaccine ( season) [facility] Start: 03-02-2024 Influenza vaccination Influenza Vaccine (#1) [facility] Start: 11-24-2023 Glaucoma screening Dilated Retinal Exam [facility] Start: 07-12-2022 End: 09-11-2022 Choriogonadotropin ( test) [Presence] in Urine HCG QUAL UR Lab Routine Missed menses Expected: 07/12/2022, Expires: 09/11/2022 [facility] Work Phone: Comment on above: Expected: 07/12/2022, Expires: 3 Start: 07-02-2022 DEPRESSION ASSESSMENT DEPRESSION ASSESSMENT [facility] Start: 06-26-2022 [facility] Work Phone: Start: 03-02-2022 Influenza vaccination [facility] Start: 12-27-2021 HPV TESTING HPV TESTING [facility] Start: 12-27-2021 PAP TESTING PAP TESTING [facility] Start: 12-27-2021 Screening for malignant neoplasm of cervix Cervical Cancer Screening [facility] Start: 10-18-2021 End: 12-18-2021 ALBUMIN/CREAT RATIO RND UR ALBUMIN/CREAT RATIO RND UR Lab Routine Type 2 diabetes mellitus with 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, unspecified whether manager long term care insulin use (HCC) Expected: 10/18/2021, Expires: 12/18/2021 [facility] Work Phone: Comment on above: Expected: 10/18/2021, Expires: 2 Start: 10-18-2021 End: 12-18-2021 CBC W Auto Differential panel - Blood CBC + DIFF Lab Routine Type 2 diabetes mellitus with 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, unspecified whether skilled nursing insulin use (HCC) Expected: 10/18/2021, Expires: 12/18/2021 [facility] Work Phone: Comment on above: Expected: 10/18/2021, Expires: 2 Start: 10-18-2021 End: 12-18-2021 Comprehensive metabolic 2000 panel - Serum or Plasma COMP METABOLIC PANEL Lab Routine Screening for hyperlipidemia Expected: 10/18/2021, Expires: 12/18/2021 [facility] Work Phone: Comment on above: Expected: 10/18/2021, Expires: 2 Start: 10-18-2021 End: 12-18-2021 Hemoglobin A1c/Hemoglobin.total in Blood HGB A1C Lab Routine Type 2 diabetes mellitus with 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, unspecified whether skilled nursing insulin use (HCC) Expected: 10/18/2021, Expires: 12/18/2021 [facility] Work Phone: Comment on above: Expected: 10/18/2021, Expires: 2 Start: 10-18-2021 End: 12-18-2021 LIPID PANEL BASIC LIPID PANEL BASIC Lab Routine Screening for hyperlipidemia Expected: 10/18/2021, Expires: 12/18/2021 [facility] Work Phone: Comment on above: Expected: 10/18/2021, Expires: 2 Start: 07-14-2020 Mammography MAMMOGRAM [facility] Start: 07-14-2020 Screening for malignant neoplasm of breast Mammogram Screening [facility] Start: 07-10-2020 ANNUAL PCP TEAM CHRONIC DISEASE VISIT ANNUAL PCP TEAM CHRONIC DISEASE VISIT [facility] Start: 07-10-2020 Hepatitis B screening URINE ALBUMIN:CREATININE RATIO [facility] Start: 06-23-2020 Hepatitis B surface antibody level LDL CHOLESTEROL [facility] Start: 02-08-2020 3 comp foot exam completed DIABETIC FOOT EXAM [facility] Start: 02-08-2020 Diabetic foot examination Diabetic Foot Exam [facility] Start: 09-22-2019 Hemoglobin A1c measurement HbA1C [facility] Start: 09-22-2019 Hemoglobin A1c/Hemoglobin.total in Blood HBA1C [facility] Start: 04-10-2018 Hepatitis C antibody, confirmatory test DILATED RETINAL EXAM [facility] Start: 12-14-2017 Adult depression screening assessment DEPRESSION SCREENING [facility] Start: 03-07-2017 End: 04-23-2017 Follow Up Appt Other Follow Up Appt Other [facility] Work Phone: Start: 02-19-2017 End: 02-19-2017 Appointment Appointment [facility] Work Phone: Start: 07-12-2015 End: 10-13-2015 Follow Up Appt Other Follow Up Appt Other [facility] Work Phone: Start: 07-12-2015 End: 10-13-2015 Follow Up Appt Other [facility] Work Phone: Start: 07-29-2014 End: 08-05-2014 Follow up Appt 1 week Follow up Appt 1 week [facility] Work Phone: Start: 07-29-2014 End: 08-05-2014 Follow up Appt 1 week Follow up Appt 1 week [facility] Work Phone: Start: 07-14-2014 End: 07-20-2014 Follow Up Appt Other Follow Up Appt Other [facility] Work Phone: Start: 07-14-2014 End: 07-20-2014 Follow Up Appt Other Follow Up Appt Other [facility] Work Phone: Start: 08-26-2013 End: 08-27-2013 Follow Up Appt Other Follow Up Appt Other [facility] Work Phone: Start: 08-26-2013 End: 08-27-2013 Follow Up Appt Other Follow Up Appt Other [facility] Work Phone: Start: 1998 HEPATITIS B (1 of 3 - Risk 3-dose series) HEPATITIS B (1 of 3 - Risk 3-dose series) [facility] Start: 1998 Hepatitis B Vaccine (1 of 3 - 19+ 3-dose series) Hepatitis B Vaccine (1 of 3 - 19+ 3-dose series) [facility] Start: 1998 Urine microalbumin profile [facility] Start: 1997 Anxiety Screening Anxiety Screening [facility] Start: 1997 Depression Screening Depression Screening [facility] Start: 1997 HEPATITIS C SCREENING HEPATITIS C SCREENING [facility] Start: 1997 Hepatitis C screening Hepatitis C Screening [facility] Start: 1997 HIV SCREENING HIV SCREENING [facility] Start: 1997 HIV screening HIV Screening [facility] Start: 1984 COVID-19 VACCINE (1) COVID-19 VACCINE (1) [facility] Start: 01-05-1980 COVID-19 VACCINE (#1) COVID-19 VACCINE (#1) [facility] Start: 1979 HEPATITIS B (1 of 3 - 3-dose series) HEPATITIS B (1 of 3 - 3-dose series) [facility] Patient Education [facility] Work Phone: Patient referral [facility] Work Phone: End: 01-27-2023 Screening mammography bi 2-view breast inc cad KRISTI SCREENING Radiology Routine Encounter for screening mammogram for breast cancer 1 Occurrences starting 12/28/2021 until 01/27/2023 [facility] Work Phone: Comment on above: 1 Occurrences starting 12/28/2021 until 01/27/2023 Urine culture [facility] Immunizations Immunization Date Immunization Notes Care Provider Rhina lino 07-23-2018 influenza virus vacc ine, unspecified formulation Anastasiia Joaquin MD Work Phone: [facility] 04-15-2013 influenza virus vacc ine, unspecified formulation Kolby Fisher LPN [facility] 12-14-2010 tetanus toxoid, adsorbed Kolby manrique [facility] Payers Date Payer Category Payer Self-pay [id number] 2024 Unknown [id number] 2023 Private Health Insurance JASVIR WEBBX [id number] 2023 Unknown JASVIR TAY HI X [id number] 2023-Present [phone] [address] [address] [place] [address] HMO [id number] 2012 Unknown [employer] [id number] 2012 Unknown [id number] 2012 Medicaid [employer] [id number] 2012-Present [phone] [address] [place] [address] Medicaid [id number] 2012 Medicaid [id number] Unknown [id number] Unknown [id number] Unknown [id number] Unknown [id number] Unknown [id number] Social History Date Type Detail Facility Start: 07-14-2019 End: 09-23-2024 Tobacco smoking status IAIS Smokes tobacco daily [facility] History of tobacco use Cigar Smoker [facility] Start: 12-29-2019 End: 05-23-2024 Alcohol intake Current non-drinker of alcohol (finding) [facility] Start: 03-13-2019 End: 05-23-2024 Tobacco Comment 1 cigar daily [facility] Start: 1980 Sex Assigned At Not on file C [facility] Start: 10-09-2021 End: 10-19-2021 Exposure to SARS-CoV-2 (event) Not sure [facility] Start: 06-26-2022 End: 12-21-2022 Tobacco smoking status NHIS Unknown if ever smoked [facility] Start: 12-27-2020 Occasional [facility] Start: 12-27-2020 Marijuana [facility] Start: 12-27-2020 Cigarettes [facility] Start: 1980 Sex Assigned At Female W [facility] History of tobacco use Cigarette Smoker C [facility] Work Phone: Start: 07-14-2019 End: 05-23-2024 Cigarettes smoked current (pack per day) - Reported 0.3 [facility] Start: 07-14-2019 End: 05-23-2024 Tobacco use and exposure Smokeless tobacco non-user [facility] Work Phone: Start: 05-23-2024 Tobacco use panel [facility] Adult Depression Screening Assessment 4 [facility] Start: 10-20-2014 Spouse/ Significant Other Spouse/ Significant Other [facility] Start: 09-23-2024 Sex Female (finding) [facility] NEGATED: Highlighted row [facility] Medical Equipment Procedure Code Equipment Code Equipment Original Text Equipment Identifier Dates [id number], [id number], [id number] Start: 10-25-2017 Comment on above: Test blood sugar(s) 4 times daily. Dx: Type 2 DM - Uncontrolled E11.65 Insulin: Yes Test blood sugar(s) 4 times daily. Dx: Type 2 DM - Controlled E11.9 Insulin: Yes Functional Status Date Assessment Result Facility 09-24-2014 Are you deaf, or do you have serious difficulty hearing No 09/24/2014 2:04 PM Jolie Lawrence C[facility] No [facility] 09-24-2014 Are you blind, or do you have serious difficulty seeing, even when wearing glasses No 09/24/2014 2:04 PM Jolie Lawrence [facility] No [facility] 09-24-2014 Do you have serious difficulty walking or climbing stairs No 09/24/2014 2:04 PM EDT Jolie Dennis [facility] No [facility] 09-24-2014 Do you have difficul ty dressing or bathing No 09/24/2014 2:04 PM EDT Jolie Dennis [facility] No [facility] 09-24-2014 Because of a physica l, mental, or emotional condition, do you have difficulty doing errands alone such as visiting a physician's office or shopping No 09/24/2014 2:04 PM EDT Jolie Dennis [facility] No [facility] Mental Status Date Assessment Result Facility 06-26-2022 Cognitive function Level Of Cons ciousness Awake;Alert;Appropriate;Fol lows Commands [facility] Work Phone: 09-24-2014 Because of a physica l, mental, or emotional condition, do you have serious difficulty concentrating, remembering, or making decisions No 09/24/2014 2:04 PM EDT Jolie Dennis [facility] No [facility] Clinical Notes 05-01-2013 to 04-13-2025 Renetta Murillo LPN - 09/24/2024 9:22 AM EDT Note Date & Type Note Facility 04-13-2025 Note HNO ID: [id number] Author: CHERYL MUNOZ RN Service: ? Author [...] Munoz RN April 13, 2025 12:59 PM [facility] 04-13-2025 Note Patient Outreach ([facility]) TALATMINDY ([id number]) 1980 F Date Time Provider Department 04/13/25 CHERYL MUNOZ [facility] During your visit today, we recorded [...] glargine LANTUS 100 UNIT/ML SOLN INSULIN GLARGINE [id number] Pierce Pemberton MD 08-26-2013 [facility] ([id number]) - L. acidophilus-L. rhamnosus 15 billion cell [...] Cyst with Abscess [L05.01] 03/15/2010 NO SHOW [[id number]] 05/01/2013 07/06/2014 Brachial plexus neuropathy [G54.0] 06/04/2013 Neuropathic pain [M79.2] 06/04/2013 Type 2 diabetes mellitus with 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 *10/23/2013 Hidradenitis suppurativa [L73.2] 10/26/2013 HPV test positive [[id number]] 07/16/2014 Tobacco use disorder [F17.200] 12/14/2016 History of substance abuse [F19.11] 07/23/2018 Pain in joint of left shoulder region [M25.512] 09/05/2018 Abnormal mammogram [R92.8] 10/14/2019 Encounter Status:Closed by CHERYL MUNOZ on 04/13/25 [facility] 09-25-2024 Note HNO ID: [id number] Author: ANASTASIIA JOAQUIN MD Service: ? Author Type: Resident Type: Progress Notes Filed: 09/25/2024 13:17 Note Text: Noted, thanks. [facility] 09-25-2024 Note HNO ID: [id number] Author: SUSHMA QUIGLEY LPN Service: ? Author Type: LICENSED NURSE Type: Progress Notes Filed: 09/25/2024 11:26 Note Text: ED Follow Up: Patient discharged from [facility] ED on 09/23/24. Attempted to call patient, no answer.Unable to leave a message due to message comes on stating this number has 'call restrictions'. This is the second attempt to contact this patient for an ED Outreach and not being able to reach this patient. Sushma Quigley LPN [facility] 09-24-2024 Note HNO ID: [id number] Author: RENETTA MURILLO LPN Service: ? Author Type: LICENSED NURSE Type: Progress Notes Filed: 09/24/2024 09:24 Note Text: ED Follow Up: Patient discharged from [facility] ED on 09/23/24. Attempted to call patient, no answer.Unable to leave a message due to message comes on stating this number has call restrictions and call can not be completed. Renetta Murillo LPN [facility] 09-24-2024 History of Present illness Narrative ED Follow Up: Patient discharged from [facility] ED on 09/23/24. Attempted to call patient, no answer.Unable to leave a message due to message comes on stating this number has call restrictions and call can not be completed. Renetta Murillo LPN documented in this encounter [facility] 09-24-2024 Note Patient Outreach ([facility]) MINDY FAULKNER ([id number]) 1980 F Date Time Provider Department 09/24/24 RENETTA MURILLO [facility] During your visit today, we recorded the following information about you: Renetta Murillo LPN 09/24/2024 9:24 AM Signed ED Follow Up: Patient discharged from [facility] ED on 09/23/24. Attempted to call patient, no answer.Unable to leave a message due to message comes on stating this number has call restrictions and call can not be completed. BRE Darden Abbigail, LPN 09/25/2024 11:26 AM Signed ED Follow Up: Patient discharged from [facility] ED on 09/23/24. Attempted to call patient, [...] for Visit: ED outreach [Other] Cmt: 09/23/24 [place] ER Prescriptions as of 09/25/2024 - ibuprofen [...] glargine LANTUS 100 UNIT/ML SOLN INSULIN GLARGINE [id number] Pierce Pemberton MD 08-26-2013 [facility] [facility] ([id number]) - L. acidophilus-L. rhamnosus 15 billion cell [...] Cyst with Abscess [L05.01] 03/15/2010 NO SHOW [[id number]] 05/01/2013 07/06/2014 Brachial plexus neuropathy [G54.0] 06/04/2013 Neuropathic pain [M79.2] 06/04/2013 Type 2 diabetes mellitus with 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 *10/23/2013 Hidradenitis suppurativa [L73.2] 10/26/2013 HPV test positive [[id number]] 07/16/2014 Tobacco use disorder [F17.200] 12/14/2016 History of substance abuse [F19.11] 07/23/2018 Pain in joint of left shoulder region [M25.512] 09/05/2018 Abnormal mammogram [R92.8] 10/14/2019 Encounter Status:Closed by RENETTA MURILLO on 09/24/24 [facility] 09-23-2024 Discharge summary [facility] 09-23-2024 Discharge summary Note Date/Time September 23, 2024 3:55pm [facility] Medical Records Department [address] [place] [address] Emergency Department Summary 09/23/24 MR#: [id number] Acct: [id number] Name: MINDY FAULKNER Rep #:[id number] : [...] not see a primary care physician. [facility] Medical History Wears dentures Wears glasses Anxiety [...] % (Auto) 53.1 Lymph % (Auto) 35.8 Custer % (Auto) 6.8 Eos % (Auto) 2.9 [...] Clarity Cloudy Urine pH 6.5 Ur Specific [place] 1.015 Urine Protein 500 H Urine Glucose [...] Referrals: Yariel Cruz MD [Med Staff - Secondary Education Professor] - 3-5 Days Care Physician,No Primary [Primary Care Provider] - Activity Restrictions/Additional Instructions: Keep your appointment with primary care physician. Print Language: Arabic Disposition Disposition: Home, Self Care What to do if you have Problems For any increased pain, shortness of breath, bleeding, nausea or vomiting, chestpain, or any unexpected problems, contact your Primary Care Provider. Call [facility] ([phone]) or report to the closest Emergency Room. Call 911 if necessary. 09/23/24 9433 <Electronically signed by Jose Garza DO> Cosigner Signature (if applicable): CC: No Primary Care Physician ~ Signed [facility] Work Phone: 1(215) 134-534503-25-2025 NotePatient Outreach ([facility]) MINDY FAULKNER ([id number]) 1980 F Date Time Provider Department 09/23/24 RIYA SILVERIO [facility] During your visit today, we recorded [...] for screening mammogram for breast cancer [Z12.31] Order(s):KIRSTI SCREENING W NEGRA [[id number]] Order #: [id number] FUTURE Prescriptions as of 10/24/2024 - ibuprofen [...] glargine LANTUS 100 UNIT/ML SOLN INSULIN GLARGINE [id number] Pierce Pemberton MD 08-26-2013 [facility] ([id number]) - L. acidophilus-L. rhamnosus 15 billion cell [...] with meals. - insulin glargine (LANTUS SOLOSTAR, LIBBY PEREZPEN) 100 unit/mL (3 mL) inpn Inject 13 [...] Cyst with Abscess [L05.01] 03/15/2010 NO SHOW [[id number]] 05/01/2013 07/06/2014 Brachial plexus neuropathy [G54.0] 06/04/2013 Neuropathic pain [M79.2] 06/04/2013 Type 2 diabetes mellitus with 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 *10/23/2013 Hidradenitis suppurativa [L73.2] 10/26/2013 HPV test positive [WNG2286] 07/16/2014 Tobacco use disorder [F17.200] 12/14/2016 History of substance abuse [F19.11] 07/23/2018 Pain in joint of left shoulder region [M25.512] 09/05/2018 Abnormal mammogram [R92.8] 10/14/2019 Encounter Status:Closed by DEMOND ASCENCIO on 10/24/24[facility] 07-08-2024 Telephone encounter Note* Telephone Encounter - Mali Mercado - 07/08/2024 9:14 AM EST Patient called to make 1st appt in office I gave her directions etc Mali Mercado July 08, 2024 9:14 AM [facility]01-07-2025 Miscellaneous Notes* Telephone Encounter - Mali Mercado - 07/08/2024 9:14 AM EST Patient called to make 1st appt in office I gave her directions etc Mali Mercado July 08, 2024 9:14 AM documented in this encounter[facility]24 NoteHNO ID: [id number] Author: CRISTINA ESPARZA LSW Service: ? Author Type: Senior Network Engineer Type: Progress Notes Filed: 06/02/2024 15:42 Note Text: Outcall to patient as per referral below: No response. Left voice message. As patient resides in [place] would provide local agencies: [employer], [address] [address] [employer]: [facility] [address] [place] [address] Patient: Mindy Faulkner ([id number]) Sex: Female : 1980 [facility] ID Number: [id number] Akhi[employer] ID Number: [id number] [facility]: [id number] [facility]: [id number] Address: [address] [place] [address] CONSULT TO SWEET POTATO DISINTEGRATOR ( IMCA/CFM ONLY) Priority: Routine Class: Jarrett External Referral Comment: Callum Crawfordyl! Ms. Faulkner is requesting to get into [...] Date:05/27/2024 Ordering User:ANASTASIIA JOAQUIN Authorizing Provider:Johann Montiel Department:[facility] CFM Location: [facility] Provider ID: [id number] NPI Number: [id number] Priority: Routine Referred by: None Referral type: Transition of Care Referral reason: PCP Requested Referral To Location/POS: None To Specialty: None Visits requested: 1 Expiration Date: 08/25/24 Referred to: Not Available Electronically Signed by: ANASTASIIA JOAQUIN Telephone 05/27/2024 [facility] Anastasiia Joaquin MD Family Medicine Mood disorder (HCC) Dx All Conversations (Newest Message First)View All Conversations on this Encounter June 02, 2024 06/02/24 3:18 PM You routed this conversation to Anastasiia Joaquin MD May 27, 2024 05/27/24 9:17 AM Anastasiia Joaquin MD routed this conversation to [facility] Social Work Referral Pool Anastasiia Joaquin MD 05/27/24 9:13 AM Note Called Ms. Faulkner at number in chart; verified and . Patient says she is doing alright. She is requesting counseling as her main goal right now. She has not received call yet from behavioral health referral so I let her know to call our office if she does not hear by the end of the week. She is also interested in speaking with our social welfare administrator so I also let her know I would place a consult for [facility]. Provided number for suicide/crisis hotline 988. Patient has no questions. Anastasiia Joaquin MD 05/27/2024 9:13 [facility]12-02-2024 History of Present illness Narrative* Cristina Esparza, LINE ORDERING CLINICIAN - 06/02/2024 3:20 PM EST Images from the original note were not included. Outcall to patient as per referral below: No response. Left voice message. As patient resides in [place] would provide local agencies: [employer] [address] [place] [address] [employer]: Referral [address] [address] Patient: Mindy Faulkner ([id number]) Sex: Female : 1980 [facility] ID Number: [id number] [employer] ID Number: [id number] [facility]: [id number] [facility]: [id number] Address: [address] [place] [address] CONSULT TO SWEET POTATO DISINTEGRATOR ( IMCA/CFM ONLY) Priority: Routine Class: Jarrett [...] Date:05/27/2024 Ordering User:ANASTASIIA JOAQUIN Authorizing Provider:Johann Montiel Department:[facility] Location: [facility] Provider ID: [id number] NPI Number: [id number] Priority: Routine Referred by: None Referral type: Transition of Care Referral reason: PCP Requested Referral To Location/POS: None To Specialty: None Visits requested: 1 Expiration Date: 08/25/24 Referred to: Not Available Electronically Signed by: ANASTASIIA JOAQUIN Telephone 05/27/2024 [facility] Anastasiia Joaquin MD Family Medicine Mood disorder (HCC) Dx All Conversations (Newest Message First)View All Conversations on this Encounter June 02, 2024 CG 06/02/24 3:18 PM You routed this conversation to Anastasiia Joaquin MD May 27, 2024 NEL 05/27/24 9:17 AM Anastasiia Joaquin MD routed this conversation to [facility] Social Work Referral Pool Anastasiia Joaquin MD 05/27/24 9:13 AM Note Called Ms. Faulkner at number in chart; verified and . Patient says she is doing alright. She is requesting counseling as her main goal right now. She has not received call yet from behavioral health referral so I let her know to call our office if shedoes not hear by the end of the week. She is also interested in speaking with our social welfare administrator so I also let her know I would place a consult for CFM SW. Provided number for suicide/crisis hotline 988. Patient has no questions. Anastasiia Joaquin MD 05/27/2024 9:13 AM documented in this encounter[facility] Telephone encounter Note * Telephone Encounter - Anastasiia Joaquin MD - 05/27/2024 9:08 AM EST Called Ms. Faulkner at number in chart; verified and . Patient says she is doing alright. She is requesting counseling as her main goal right now. She has not received call yet from behavioral health referral so I let her know to call our office if shedoes not hear by the end of the week. She is also interested in speaking with our social welfare administrator so I also let her know I would place a consult for CFM SW. Provided number for suicide/crisis hotline 988. Patient has no questions. Anastasiia Joaquin MD 05/27/2024 9:13 AM [facility]11-26-2024 Miscellaneous Notes* Telephone Encounter - Anastasiia Joaquin MD - 05/27/2024 9:08 AM EST Called Ms. Faulkner at number in chart; verified and . Patient says she is doing alright. She is requesting counseling as her main goal right now. She has not received call yet from behavioral health referral so I let her know to call our office if shedoes not hear by the end of the week. She is also interested in speaking with our social welfare administrator so I also let her know I would place a consult for [facility]. Provided number for suicide/crisis hotline 988. Patient has no questions. Anastasiia Joaquin MD 05/27/2024 9:13 AM documented in this encounterOhiohealth [facility]11-24-2024 NoteHNO ID: [id number] Author: JOHANN MONTIEL MD Service: ? Author [...] resident's note for further details. Johann Montiel, [facility]11-22-2024 Instructions* Patient Instructions* Anastasiia Joaquin MD - [...] on patient or provider preference: Central/Multiple Locations: Corina and [facility]: [address] [facility] [phone] Duglas Roland: [address] Michelle Bañuelos [place] - [phone] [facility].: [address] [facility] - [phone] [facility]: [address] [facility] Health Unitj[facility]yn[facility] - [phone] [place] [facility] Children: 4500 [facility] - [phone] (Medicaid only) [facility] Center for Geriatric Medicine: Multiple Locations - [phone] [facility] Department of Psychiatry & Psychology at [phone] (select Option 1) or [phone] (select Option 1) Connections: Multiple Locations - [phone] (Medicaid only) Fabrice Penn [facility] - Multiple Locations - [phone] (Medicaid only) [facility], [facility].: Multiple Locations - [phone] Psychological and Behavioral Consultants: Multiple Locations - [phone] Recovery Resources: Multiple Locations - [phone] [facility] Locations: [facility]: [address] [facility] - [phone] [facility]: [address] [facility] [place] - [phone] Juanis Webb PhD and Associates: [address] [facility] - [phone] [place] [id number] [facility] [address] Flores - [phone] Em Calloway MD: [address] [facility] - [phone] [facility] Assoc. [address] , [place] - [phone] [facility]: 992 [facility] - [phone] [facility], [address] [place] [address] - [phone] [place] Locations: Lynn Davis MD [facility] Associates Inc: [address] [address] Enrique, [place] - [phone] Juanis Webb PhD and Associates: [address] [facility] - [phone] [facility] Family Services: [address] [facility] - [phone] [facility] Mental Health Associates, Inc.: 3690 [facility] - [phone] [facility], [address], [address], [place] - [phone] [facility], [address], Tim - [phone] [facility]: [address] [address]. [place] - [phone] [facility] Locations: [facility] Psychological and Counseling Services of [facility] L [facility] -[phone] [facility] L Jannette Enrique, [facility] - [phone] [facility] Psychiatry: [address], [place] - [phone] [facility]: [address] [facility], [facility] - [phone] [facility] - [address] [facility] - [phone] [place] Locations: [facility] Wiley West MD Psychiatry, Sleep Medicine - 24[address] [facility] [phone] or [phone] Fani Johnson MD - [address] [facility] [phone] Psychological and Behavioral Consultants - NIMO Ashford, DCSW - [address] [phone] [facility] - [address] [facility] [phone] [facility] (NO Commercial Insurance accepted) - [address] [place] [phone] [facility] - Kal Schulz, PCC, LIDC - [address] [place] [phone] Karmen Ruiz [employer] - 240[address] [facility] [phone] June Mart, [facility] - [address] [place] [phone] All Ramos, PhD - [address] [place] [phone] Lali Sampson, [employer] - 850 [facility] [phone] Faviola Victoria, PCCS, LICDC (No Medicare, [facility]) - [address] [phone] Clarence Boyle, [facility] - [address] [place], [place] - [phone] Austin Randhawa, [address] [phone] For additional resources and information please call or review the website: [email or web address].[address] [place] [address].org/ If you are feeling suicidal, please call [employer], , or the [employer] Suicide Hotline , Call 417, or go to your nearest emergency room documented in this encounterOhiohealth [facility]ide [facility]11-22-2024 NoteHNO ID: [id number] Author: ANASTASIIA JOAQUIN MD Service: ? Author Type: Resident Type: Progress Notes Filed: 05/23/2024 19:33 Note Text: Anastasiia Joaquin MD [facility] Family Medicine [address] [place] [address] Secondary Education Professor Center / [address] Floor [place], [place] [address] Visit Date: May 23, 2024 Name: Mindy Faulkner Date of : 1980 MRN/E #: [id number] Chief Complaint: Patient presents with: Establish Care: RT side arm, breast, and leg w/o injury x 1 month Patient has hidradenitis thinks pain is associated with disorder Subjective Mindy Faulkner is a 43 year old female here for a new patient visit to establish care and also for mood concerns Previously received care at [facility] 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 [...] she would never harm herself -formerly saw [facility] - Dr. Corey, on medicine that altered her mind and she stopped going - Initially mentioned [...] counseling, very concerned that she would be locked up if she were to share details about [...] glargine LANTUS 100 UNIT/ML SOLN INSULIN GLARGINE [id number] Pierce Pemberton MD 08-26-2013 [facility] [facility] ([id number]) (Patient not taking: Reported on 05/23/2024) L. [...] tablet by mouth t (more content not included)...[facility]11-22-2024 History of Present illness Narrative* Anastasiia Joaquin MD - 05/23/2024 11:05 AM EST Images from the original note were not included. Anastasiia Joaquin MD [facility] 1 [facility] Secondary Education Professor Center / [address] Floor [place] [address] Visit Date: May 23, 2024 Name: Mindy Faulkner Date of : 1980 MRN/E #: [id number] Chief Complaint: Patient presents with: Establish Care: RT side arm, breast, and leg w/o injury x 1 month Patient has hidradenitis thinks pain is associated with disorder Subjective Mindy Faulkner is a 43 year old female here for a new patient visit to establish care and also for mood concerns Previously received care at [facility] 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 [...] she would never harm herself -formerly saw [facility] - Dr. Corey, on medicine that altered her mind and she stopped going - Initially mentioned [...] counseling, very concerned that she would be locked up if she were to share details about [...] glargine LANTUS 100 UNIT/ML SOLN INSULIN GLARGINE [id number] Pierce Pemberton MD 08-26-2013 [facility] [facility] ([id number]) (Patient not taking: Reported on 05/23/2024) L. 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 Anastasiia Joaquin MD Family Medicine, PGY-I [facility] Date: May 23, 2024 Time: 6:56 PM documented in this encounterOhiohealth [facility]ide [facility]01-11-2023 History of Present illness Narrative* Evette Rivera [...] 2 weeks.Evette Rivera RN documented in this encounterOhiohealth Riverside [facility] Hospital12-26-2022 Hospital Discharge instructions Additional Instructions Apply ice to the lower back 6-10 times a day for the next 3 to 5 days. Avoid activity that causes you increased painWMercy Health St. Charles Hospital Work Phone: 1(996) 246-140404-19-2022 History of Present illness Narrative* Janeth Low [...] Care Gap or Scheduling/Wellness visits Payer: Payor: [facility] MEDICAID / Plan: [facility] MEDICAID / Product Type: Medicaid / Health [...] 14, 2021 4:24 PM documented in this encounterOhiohealth Riverside [facility] Hospital10-31-2013 History of Past illness Narrative* Problem Noted Date Resolved Date NO SHOW 05/01/2013 07/06/2014 documented as of this encounter (statuses as of 10/26/2021) [facility] History of Past illness Narrative* Problem Noted Date Resolved Date NO SHOW 05/01/2013 07/06/2014 documented as of this encounter (statuses as of 01/02/2022) [facility] History of Past illness Narrative* Problem Noted Date Resolved Date NO SHOW 05/01/2013 07/06/2014 documented as of this encounter (statuses as of 07/12/2022) [facility] note* Diagnosis Type 2 diabetes mellitus with 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, unspecified whether skilled nursing insulin use (HCC)- Primary Screening for hyperlipidemia Screening for lipoid disorders documented in this encounter [facility] note* Diagnosis Encounter for screening mammogram for breast cancer documented in this encounter [facility] noteNo assessment information availableWMercy Health St. [facility] Hospital Work Phone: Evaluation note* Diagnosis Missed menses- Primary Absence of menstruation documented in this encounter [facility] note* Diagnosis Mood disorder (HCC)- Primary Unspecified episodic mood disorder Elevated blood pressure reading without diagnosis of hypertension documented in this encounter [facility] note* Diagnosis Mood disorder (HCC)- Primary Unspecified episodic mood disorder documented in this encounter [facility] note* Diagnosis Needs assistance with community resources- Primary documented in this encounter [facility] Discharge instructions Additional Instructions Keep your appointment with primary care physician.[facility] Work Phone: Reason for referral (narrative)* Diagnostic Procedure Only (Routine) - Pending Review Specialty Diagnoses / Procedures Referred By Sravani brenner Referred To Contact [facility] Diagnoses Encounter for screening mammogram for breast cancer Procedures KRISTI SCREENING SCREENING MAMMOGRAPHY BI 2-VIEW BREAST INC CAD Joey Bradshaw MD [address] [place] [address] [facility] [place] [address] Referral ID Status Reason Start Date Expiration Date Visits Requested Visits Authorized [id number] Pending Review Auto-Generat ed Referral 12/28/2021 01/27/2023 1 1 [facility] for referral (narrative)No reason for referral information availableWMercy Health St. Charles Hospital Work Phone: Summary Purpose Family History No Family History Records Found Relationship Condition Age at Onset Recorded Date/T ivanna Not Specified Diabetes mellitus Unknown Advance Directives No Advanced Directives Records FoundDocuments on File Type Date Recorded Patient Hot Shot Expl anation Advance Directive(s) 03/20/2019 9:08 AM Advance Directive(s) 08/01/2018 8:56 AM Documents on File Type Date Recorded Patient Hot Shot Expl anation Advance Directive(s) 03/20/2019 9:08 AM Advance Directive(s) 08/01/2018 8:56 AM Advance Directive Response Recorded Date/ Time Advance Directives No May 10:47pm Living Will No June 26, 2 022 1:04pm Power of Culinary Director No June 26, 2022 1:04pm Advance Directive Response Recorded Date/ Time Advance Directives No May 11:47pm Living Will No December 21, 2022 4:55pm Power of Culinary Director No December 21 4:55pm Advance Directive Response Recorded Date/ Time Living Will No September 23, 2024 1:18pm Do you have a Healthcare Power of Culinary Director? No September 23, 2024 1:18pm Advance Directives No May 11:47pm Chief Complaint and Reason for Visit Chief Complaint GENERAL Chief Complaint LOWER EXTREMITY Chief Complaint Admit Date SPASMS September 23, 2024 1:0 4pm Reason for Referral Specialty Diagnoses / Procedures Referred By Contac t Referred To Contact Diagnoses Mood disorder (HCC) Procedures CONSULT TO PRIMARY CARE BEHAVIORAL HEALTH ADULT OFFICE/OUTPATIENT [facility] 60 MINUTES Russell Ortega MD [address] [place] [address] Referral ID Status Reason Start Date Expiration Date Visits Requested Visits Authorized [id number] Pending Review PCP Requested Referral 4 08/21/2024 1 1 Specialty Diagnoses / Procedures Referred By Contac t Referred To Contact Diagnoses Mood disorder (HCC) Procedures CONSULT TO SWEET POTATO DISINTEGRATOR (AG IMCA/CFM ONLY) Johann Montiel MD [address] [place] [address] Referral ID Status Reason Start Date Expiration Date Visits Requested Visits Authorized [id number] Ref Not Required PCP Requested Referral 4 08/25/2024 1 1 Additional Source Comments INFORMATION SOURCE (unrecogn ized section and content) DATE CREATED AUTHOR 08/19/2018 [facility] DATE CREATED AUTHOR AUTHOR'S ORGANIZ ATION 07/14/2024 [facility] DATE CREATED AUTHOR AUTHOR'S ORGANIZ ATION 04/14/2025 [facility] DATE CREATED AUTHOR AUTHOR'S ORGANIZ ATION 05/13/2025 [facility] Source Comments (unrecognize d section and content) In the event this informatio n is protected by the Federal Confidentiality of Alcohol and Drug Abuse Patient Records regulations: The Federal rules restrict any use of the information to criminally investigate or prosecute any alcohol or drug abuse patient.[facility] the event this information is protected by the Federal Confidentiality of Alcohol and Drug Abuse Patient Records regulations: The Federal rules restrict any use of the information to criminally investigate or prosecute any alcohol or drug abuse patient.[facility] the event this information is protected by the Federal Confidentiality of Alcohol and Drug Abuse Patient Records regulations: The Federal rules restrict any use of the information to criminally investigate or prosecute any alcohol or drug abuse patient.[facility] the event this information is protected by the Federal Confidentiality of Alcohol and Drug Abuse Patient Records regulations: The Federal rules restrict any use of the information to criminally investigate or prosecute any alcohol or drug abuse patient.[facility] the event this information is protected by the Federal Confidentiality of Alcohol and Drug Abuse Patient Records regulations: The Federal rules restrict any use of the information to criminally investigate or prosecute any alcohol or drug abuse patient.[facility] the event this information is protected by the Federal Confidentiality of Alcohol and Drug Abuse Patient Records regulations: The Federal rules restrict any use of the information to criminally investigate or prosecute any alcohol or drug abuse patient.[facility] the event this information is protected by the Federal Confidentiality of Alcohol and Drug Abuse Patient Records regulations: The Federal rules restrict any use of the information to criminally investigate or prosecute any alcohol or drug abuse patient.[facility] the event this information is protected by the Federal Confidentiality of Alcohol and Drug Abuse Patient Records regulations: The Federal rules restrict any use of the information to criminally investigate or prosecute any alcohol or drug abuse patient.[facility] Reason for Visit (unrecogniz ed section and content) Reason Onset Date Comments PHMA/Care Gap Outreach 10/14/2021 Reason Comments requests test Reason Comments Establish Care RT side arm, breast, and leg w/o injury x 1 month Patient has hidradenitis thinks pain is associated with disorder Reason Comments Appointment Reason Onset Date Comments ED outreach 09/24/2024 09/23/24 [facility] Care Teams (unrecognized sec tion and content) Store Administrative Assistant Relationship Specialty Start Date End Date Joey Bradshaw MD [address] [place], [place] [phone] PCP - General Family Practice 09/24/14 Store Administrative Assistant Relationship Specialty Start Date End Date Joey Bradshaw MD [address] [place], [place] [phone] PCP - General Family Practice 09/24/14 Store Administrative Assistant Relationship Specialty Start Date End Date Joey Bradshaw MD [address] [place], [place] [phone] PCP - General Family Medicine 09/24/14 Team Status: Active Member Role Status Dates Dr. Joey Bradshaw MD Family Provider Active Dr. Joey Bradshaw MD Primary Care Provider Active Team Status: Inactive Member Role Status Dates Dr. Joey Bradshaw MD Primary Care Provider Active Dr. Olegario Hastings MD Emergency Provider Active Store Administrative Assistant Relationship Specialty Start Date End Date Riya Silverio DO [address] [place], [place] [id number] PCP - General Family Medicine 05/23/24 Anastasiia Joaquin MD [address] [place], [place] [phone] PCP Resident Family Medicine 05/23/24 Store Administrative Assistant Relationship Specialty Start Date End Date Riya Silverio DO [address] [place], [place] [phone] PCP - General Family Medicine 05/23/24 Anastasiia Joaquin MD [address] [place] [address] PCP Resident Family Medicine 05/23/24 Store Administrative Assistant Relationship Specialty Start Date End Date Riya Silverio DO [address] [place] [address] PCP - General Family Medicine 05/23/24 Anastasiia Joaquin MD [address] [place] [address] PCP Resident Family Medicine 05/23/24 Store Administrative Assistant Relationship Specialty Start Date End Date Riya Silverio DO [address] [place] [address] PCP - General Family Medicine 05/23/24 Anastasiia Joaquin MD [address] [place] [address] PCP Resident Family Medicine 05/23/24 Store Administrative Assistant Relationship Specialty Start Date End Date Riya Silverio DO [address] [place], [place] [id number] PCP - General Family Medicine 05/23/24 Anastasiia Joaquin MD [address] [place] [address] PCP Resident Family Medicine 05/23/24 Team Status: [...] BE BASED ON THE PRIMARY CLINICAL RECORDS. [employer] provides no warranty or guarantee of the accuracy or completeness of information in this document.
[2025-05-20 01:29] LABS: Hematocrit 30.9 % (37-47); Hemoglobin 10.3 g/dL (12.0-15.0); Immature Granulocytes Count 0.040 X10^3/uL (0.0-0.0); Mean Corp Hgb Conc 33.3 g/dL (32-36); Mean Corpuscular Volume 88.0 fL (81-99); Mean Platelet Vol. 11.6 fl (6.2-12.0); NRBC Flagged by Analyzer 0 % (0-5); Platelet Count 384 K/mm3 (150-450); RBC Distribution Width CV 13.5 % (11.6-14.6); RBC Distribution Width SD 43.0 fl (35.1-43.9); Red Blood Count 3.51 M/mm3 (4.2-5.4); White Blood Count 9.8 K/mm3 (4.4-11.0)
[2025-05-20] MEDS: Nitroglycerin SL (ED/IMG/CATH) 0.4 MG TABLET SL (01:41)
[2025-05-20 02:00] LABS: Magnesium 2.2 mg/dL (1.5-2.2); Pro- Brain NATRIURETIC PEPTIDE 20475 pg/mL (<=450)
[2025-05-20 02:04] LABS: Troponin T High Sensitivity 244 ng/L (<=14)
[2025-05-20 02:05] LABS: Anion Gap 12 (5-15); BUN 35 mg/dL (4-19); BUN/Creat Ratio 12.2 RATIO (10-20); Calcium,Total 8.4 mg/dL (7.6-11.0); Carbon Dioxide 20.3 mmol/L (21.0-32.0); Chloride 104 mmol/L (98-108); Estimated Creatinine Clearance 25.74 ml/min (50-250); Glucose 348 mg/dL (70-99); Potassium 4.0 mmol/L (3.3-5.1)
--- NOTE | 2025-05-20 02:23 | HP.PCM.HOS_ITS ---
HPI - General General Date of Admission: 05/20/25 Date of Service: 05/20/25 Chief Complaint: CP/SOB HPI Narrative MINDY GILLILAND, is a 44 F who presented to the emergency department [facility] on 05/19/2025 late evening complaining of chest pain and shortness of breath. She was recently admitted here on 05/05/2025 with the same complaints. She was admitted to PCU as she was found to have new BENNIE, elevated blood pressure and elevated troponin. Chest x-ray at that hospitalization showed bilateral pleural effusions and a CTA showed no PA but she did have patchy interstitial and alveolar infiltrates consistent with heart failure as well as bilateral pleural effusions. proBNP was markedly elevated. An echocardiogram was performed and showed a newly depressed ejection fraction at 35% with global dysfunction and no specific wall motion abnormality. Her toxicology screen at that time was positive for fentanyl and amphetamines as well as marijuana. Patient only admits to marijuana use and states she has no clue how fentanyl amphetamines got in her system. I did explain the importance of being honest with us with regards to this as amphetamines can stress the heart rate and she again reiterates that she does not use any other substances besides marijuana. Nephrology was also consulted at time and extensive workup was pursued to this point it seems to be overtly unremarkable. She returns with recurrent chest pain and shortness of breath and was also found to be anasarcic. Vital signs on presentation showed temperature of 97.7, heart rate 130 and sinus tachycardia, respiratory 18, blood pressure was 204/122 and pulse ox was 94% on room air. CBC shows a stable anemia compared to on her day of discharge with a hemoglobin of 10.3 but this is acute compared to previously this year. Her chemistry panel showed a slight non-anion gap metabolic acidosis with a serum bicarb of 20.3 which is likely precipitated by her BENNIE having a BUN of 35 and a serum creatinine of 2.85. Renal function was normal earlier this year with a baseline of 0.9-1.0. Blood glucose is 248. Initial troponin was 244 which is up from her delta troponin on 05/05/2025 which was 128. Her proBNP was 20,475. UA shows proteinuria and occult blood with no RBCs. She did have a negative MARIANO and ANCA screens at her last hospitalization. [facility] Medical History Substance abuse Wears dentures Wears glasses Anxiety Diabetes Kidney stones Anemia Back pain Injury of back Migraine headache Injury of head and neck Loss of consciousness Gastric reflux Smoker Leg cramps History of pain when walking History of edema Hx of hidradenitis suppurativa Personal history of Methicillin resistant Staphylococcus aureus infection Right axillary hidradenitis Arthritis Smoker DM type 2 (diabetes mellitus, type 2) Home Medications ?Medication ?Instructions ?Recorded ?Last Taken ?Type NK 05/05/25 Unknown History Allergy/AdvReac Type Severity Reaction Status Date / Time hydrocodone bitartrate (From AdvReac Vomiting Verified 05/20/25 00:55 Vicodin) hydromorphone HCl (From AdvReac Other Verified 05/20/25 00:55 Dilaudid) tramadol AdvReac Other Verified 05/20/25 00:55 Family History Other Diabetes Surgical History Hx of tooth extraction History of cystoscopy Hidradenitis Social History household members: none Smoking Status: Current every day smoker tobacco type: cigars second hand exposure: Yes alcohol intake: former substance use type: marijuana additional social history: Does Not Take Aspirin Does Take Ibuprofen As Needed ROS Constitutional Constitutional: Reports weakness; Denies anorexia, change in weight, chills, fatigue, fever(s), malaise, night sweats or other Eyes Eyes: Denies blurry vision, change in eye color, change in vision, discharge from eye(s), double vision, erythema, eye pain, loss of vision or other ENT HEENT: Denies abnormal hearing, dysphagia, ear pain, epistaxis, headache(s), hearing loss, nasal congestion, nasal discharge, post nasal drip, sinus pressure, sore throat or other Cardiovascular Cardiovascular: Reports chest pain, dyspnea on exertion, edema and rapid heart rate; Denies claudication, lightheadedness, orthopnea, palpitations, paroxysmal nocturnal dyspnea, syncope or other Respiratory/Chest Respiratory/Chest: Reports dyspnea, shortness of breath at rest and shortness of breath with exertion; Denies cough, excessive phlegm production, hemoptysis, productive cough, wheezing or other Gastrointestinal Gastrointestinal: Denies abdominal pain, coffee ground emesis, constipation, diarrhea, dyspepsia, hematemesis, hematochezia, loose stools, melena, nausea, vomiting or other Genitourinary Genitourinary: Denies burning urination, difficulty urinating, dysuria, hematuria, nocturia, urinary frequency, urinary hesitancy, urinary incontinence, urinary urgency or other Musculoskeletal Musculoskeletal: Denies arthralgias, back pain, joint pain, joint stiffness, joint swelling, myalgias, neck pain or other Neurologic Neurologic: Denies abnormal gait, abnormal speech, confusion, disequilibrium, dizziness, focal weakness, headache(s), numbness, paresthesias, seizure-like activity, seizures, syncope, tingling, tremor(s) or other Psychiatric Psychiatric: Denies anxiety, depression, homicidal ideation, suicidal ideation or other Endocrine Endocrinology: Reports polydipsia and polyuria; Denies change in body appearance, cold intolerance, excessive sweating, heat intolerance or other Hematologic/Lymphatic Hematologic/Lymphatic: Denies anemia, easy bleeding, easy bruising, lymphadenopathy or other Allergic/Immunologic Allergic/Immunologic: Denies rhinitis, hives, eczemia, asthma or other Vital Signs Vital Signs Vital Signs: 05/20/25 00:48 05/20/25 00:51 05/20/25 01:10 Temperature 98.7 F 98.7 F Temperature Source Oral Oral Pulse Rate 130 H 129 H 129 H Respiratory Rate 18 28 H 27 H Respiratory Pattern Tachypnea Blood Pressure 204/122 H 204/122 H Blood Pressure Mean 149 149 Pulse Ox 94 97 99 Oxygen Delivery Method Room Air Room Air Fraction of Inspired Oxygen (FIO2) 21 05/20/25 01:41 05/20/25 01:50 05/20/25 02:00 Temperature 98.7 F 98.7 F Temperature Source Oral Oral Pulse Rate 121 H 120 H 115 H Respiratory Rate 16 16 Respiratory Pattern Blood Pressure 201/115 H 200/121 H 191/117 H Blood Pressure Mean 147 141 Pulse Ox 93 94 Oxygen Delivery Method Bi-pap Bi-pap Fraction of Inspired Oxygen (FIO2) 05/20/25 02:10 Temperature 98.7 F Temperature Source Pulse Rate 115 H Respiratory Rate 16 Respiratory Pattern Blood Pressure 191/117 H Blood Pressure Mean 141 Pulse Ox 94 Oxygen Delivery Method Fraction of Inspired Oxygen (FIO2) Weight Weight: 84.9 kg Body Mass Index (BMI) 33.1 Physical Exam Const alert, oriented x3, no apparent distress and well nourished; Negative for average body habitus or healthy appearing Constitutional Narrative: Obese, middle-aged, -[place] female, lying in bed on BiPAP, currently appears comfortable however becomes tachypneic off BiPAP, no distress while on BiPAP General Appearance: cooperative HEENT normocephalic, head/scalp atraumatic, hearing grossly normal bilaterally and moist oral mucous membranes Eyes conjunctivae normal Eyes Narrative: No scleral icterus Neck no lymphadenopathy, supple and No no JVD Neck Narrative: Trachea midline, no thyroid enlargement noted Resp No normal respiratory effort, no retractions, no use of accessory muscles and No clear to auscultation bilaterally Resp Narrative: Diffuse crackles with diminished breath sounds at the bases bilaterally, tachypneic with no current accessory muscle use on BiPAP Auscultation: crackles; Negative for rhonchi or wheezes Cardio regular rhythm, S1 normal heart sound, S2 normal heart sound, no murmurs, no rub and no clicks; Negative for no gallops Cardio Narrative: Tachycardic, patient with an S3 gallop GI normal to inspection, nondistended, normoactive bowel sounds, soft to palpation and non-tender Extremity Extremity Narrative: Marked anasarca from bilateral distal lower extremities up in the thighs and dependent areas of the buttocks, no cyanosis or clubbing, extremities were warm Skin no jaundice, no petechiae and no mottling Neuro moves all extremities and no focal motor deficits Neuro Narrative: Speech seems to be clear however unable to discern well due to BiPAP use Psych Psych Narrative: Affect is flat but appropriate for current situation, patient makes good eye contact and interacts appropriately is able Results Lab / Micro Data 05/20/25 00:48 05/20/25 00:48 Labs: Laboratory Results - last 24 hr 05/20/25 00:48: WBC 9.8, RBC 3.51 L, Hgb 10.3 L, Hct 30.9 L, MCV 88.0, MCH 29.3, MCHC 33.3, RDW Std Deviation 43.0, RDW Coeff of Giselel 13.5, Plt Count 384, MPV 11.6, Immature Gran % (Auto) 0.400, Neut % (Auto) 69.4, Lymph % (Auto) 20.5, [place] % (Auto) 6.6, Eos % (Auto) 2.2, Baso % (Auto) 0.9, Absolute Neuts (auto) 6.8, Absolute Lymphs (auto) 2.01, Nucleated RBC % 0, Sodium 136, Potassium 4.0, Chloride 104, Carbon Dioxide 20.3 L, Anion Gap 12, BUN 35 H, Creatinine 2.85 H, Estim Creat Clear Calc 25.74 L, Est GFR (MDRD) Non-Af 20 L, BUN/Creatinine Ratio 12.2, Glucose 348 H, Calcium 8.4, Magnesium 2.2, Troponin T High Sens 244 H* D, [place] [address] H Imaging Radiology Impression Chest X-Ray 05/20/25 01:20 IMPRESSION: Mild increase in bilateral pleural effusions. Mild increase in passive atelectatic airspace disease of the lower lobes. Increased interstitial pulmonary congestion. Reading [facility] [address] Assessment & Plan Assessment/Plan (1) Elevated troponin: (2) Elevated brain natriuretic peptide (BNP) level: (3) Acute HFrEF (heart failure with reduced ejection fraction): (4) Hypertension: (5) Acute kidney injury: PLAN: Plan Dyspnea and exertional hypoxia secondary to acute HFrEF - Severe anasarca - Bilateral pleural effusions with markedly elevated BNP - Echocardiogram done on 05/06/2025 that showed an EF of 35% with global dysfunction and severely, mild to moderate LVH with stage I diastolic dysfunction and a moderate left pleural effusion - Given severe anasarca and hypoalbuminemia will start a Bumex drip after Bumex bolus of 2 mg - BiPAP to decrease work of breathing to decrease preload - Nitropaste 1 inch every 6 hours to decrease afterload and help manage blood pressures in the short-term - Once out of acute heart failure will need to start goal-directed therapy - Recheck toxicology screen as her most recent tox screen was positive for fentanyl and amphetamines as well as marijuana - After repetitive questioning patient only admits to marijuana use - Strict I's and O's - Daily weights - Sodium restricted diet - Fluid restriction to 1500 cc - Will need to monitor renal function closely--> etiology is unclear however if she improves with diuretics likely cardiorenal - Cardiology consultation-Dr. Ruiz notified via backline BENNIE suspect secondary to cardiorenal syndrome - Baseline renal function earlier this year appears to be between 0.9 and 1.0 - Nephrology consulted at last hospitalization and was okay with attempted diuresis so we will go ahead and diurese as noted above - Watch creatinine closely and avoid nephrotoxins as able - Renal ultrasound done on 05/05/2025 and showed no significant renal abnormalities and thickened bladder wall - Serologies were unremarkable - Sed rate CRP were unremarkable - Consult nephrology Elevated troponin - Chest pain on presentation but EKG with no acute signs of ischemia - Cycle cardiac enzymes - Highly suspect this is related to markedly elevated blood pressure, acute decompensated heart failure with reduced ejection fraction and decreased clearance with BENNIE - Aspirin 81 mg daily - Lipids were obtained at her last hospitalization were markedly uncontrolled with an LDL greater than 150 we will start atorvastatin 80 mg daily - Cardiology consultation pending Uncontrolled hypertension - Will try to bring down slowly - Not medically ready for any initiation of goal-directed therapy (beta- daiana/nitrate/hydralazine) - Nitropaste as noted above - as needed hydralazine for systolic pressure greater than 170 - Continue to trend and add medications as able and needed Hyperlipidemia - Lipids obtained at last visit - LDL greater than 150 - Atorvastatin as noted above Acute anemia - Mild with baseline hemoglobin prior to last hospitalization being between 12 and 14 -Currently 10-11 but stable - Suspect related to renal dysfunction - Monitor closely Bladder wall thickening - Recommend outpatient follow-up with urology for direct visualization via cystoscopy Uncontrolled DM-2 - Patient not compliant with home medication and discontinued insulin trying to manage her diabetes naturally - Last A1c on file is somewhat remote but was 11.1 - Check hemoglobin A1c - Start basal insulin with Lantus 20 units - High-dose SSI with Accu-Cheks AC and at bedtime - May need to uptitrate basal insulin and add prandial insulin depending on BGT's History of GERD - Not currently on any medication - Monitor clinically Tobacco abuse - Patient smokes cigars - denies need for nicotine replacement therapy at this time Polysubstance abuse - Toxicology screen is positive for fentanyl, amphetamines, and marijuana - Patient denies opiate or amphetamine use multiple times throughout my interview but does admit to marijuana use - Recommend cessation - I did inform her that amphetamine use can significantly affect cardiac function Obesity - BMI 33.2 - Complicates treatment, prognosis, outcomes - Recommend weight loss DVT prophylaxis - SQ heparin 3 times daily CODE STATUS - Full code Charges/Coding Visit Charges Inpatient E&M: 24501 Init Hosp L3 ZARA Risk Score for UA/STEMI Assesmment (YES = 1) Age > or = 65: No > or = 3 CAD risk factors (HTN, Hypercholesterolemia, Diabetes, family hx, current smoker): Yes Known CAD (Stenosis > or = 50%): No ASA used in past 7 days: Yes Severe angina (> or = 2 episodes in 24 hrs): No EKG ST change > or = 0.5mm: No Positive cardiac markers: Yes Score ZARA Risk Score of mortality/ recurrent ischemic event over the next 14 days: 3 = 13.2% Intermediate Risk
--- NOTE | 2025-05-20 02:29 | EX.ED.DYSGE1 ---
HPI History of Present Illness Chief Complaint: Chest Pain Informant: patient Narrative Narrative: Patient is a 44-year-old female who was seen in the ER on May 05 secondary to shortness of breath and was found to have acute kidney injury with congestive heart failure. She was admitted to the hospital but unfortunately left AGAINST MEDICAL ADVICE on May 06. Patient states that she has not been to another hospital or seen a physician since she left roughly 2 weeks ago. She states that she felt she was doing well but this evening had increasing shortness of breath and secondary to this comes to the hospital for evaluation. PFSH PFS Medical History Substance abuse Wears dentures Wears glasses Anxiety Diabetes Kidney stones Anemia Back pain Injury of back Migraine headache Injury of head and neck Loss of consciousness Gastric reflux Smoker Leg cramps History of pain when walking History of edema Hx of hidradenitis suppurativa Personal history of Methicillin resistant Staphylococcus aureus infection Right axillary hidradenitis Arthritis Smoker DM type 2 (diabetes mellitus, type 2) Home Medications ?Medication ?Instructions ?Recorded ?Last Taken ?Type NK 05/05/25 Unknown History Allergy/AdvReac Type Severity Reaction Status Date / Time hydrocodone bitartrate (From AdvReac Vomiting Verified 05/20/25 00:55 Vicodin) hydromorphone HCl (From AdvReac Other Verified 05/20/25 00:55 Dilaudid) tramadol AdvReac Other Verified 05/20/25 00:55 Family History Other Diabetes Surgical History Hx of tooth extraction History of cystoscopy Hidradenitis Social History household members: none Smoking Status: Current every day smoker tobacco type: cigars second hand exposure: Yes alcohol intake: former substance use type: marijuana additional social history: Does Not Take Aspirin Does Take Ibuprofen As Needed ROS ROS ED Constitutional Constitutional ED: Denies chills or fever(s) Eyes Eyes: Denies blurry vision or change in vision ENT ENT ED: Denies rhinorrhea or sore throat Cardiovascular Cardiovascular: Reports orthopnea, palpitations and racing heartbeat; Denies chest pain Respiratory/Chest Respiratory/Chest: Reports cough, dyspnea, dyspnea on exertion and orthopnea Gastrointestinal Gastrointestinal: Denies abdominal pain, diarrhea, nausea or vomiting Genitourinary Genitourinary ED: Denies dysuria Musculoskeletal Musculoskeletal: Reports myalgias Integumentary Denies rash Neurologic Neurologic: Denies headache(s) Hematologic/Lymphatic Hematologic/Lymphatic: Denies easy bleeding or easy bruising Allergic/Immunologic Allergic/Immunologic ED: Denies mouth swelling or tongue swelling EXAM Physical Exam Const Vital Signs: 05/20/25 00:48 05/20/25 00:51 05/20/25 01:10 Temperature 98.7 F 98.7 F Temperature Source Oral Oral Pulse Rate 130 H 129 H 129 H Respiratory Rate 18 28 H 27 H Respiratory Pattern Tachypnea Blood Pressure 204/122 H 204/122 H Blood Pressure Mean 149 149 Pulse Ox 94 97 99 Oxygen Delivery Method Room Air Room Air Fraction of Inspired Oxygen (FIO2) 21 05/20/25 01:41 05/20/25 01:50 05/20/25 02:00 Temperature 98.7 F 98.7 F Temperature Source Oral Oral Pulse Rate 121 H 120 H 115 H Respiratory Rate 16 16 Respiratory Pattern Blood Pressure 201/115 H 200/121 H 191/117 H Blood Pressure Mean 147 141 Pulse Ox 93 94 Oxygen Delivery Method Bi-pap Bi-pap Fraction of Inspired Oxygen (FIO2) 05/20/25 02:10 Temperature 98.7 F Temperature Source Pulse Rate 115 H Respiratory Rate 16 Respiratory Pattern Blood Pressure 191/117 H Blood Pressure Mean 141 Pulse Ox 94 Oxygen Delivery Method Fraction of Inspired Oxygen (FIO2) Positive well nourished and well developed Constitutional Narrative: Patient is in mild to moderate respiratory distress with tachypnea and accessory muscle use General Appearance ED: well developed HEENT HEENT Narrative: Normocephalic atraumatic No tongue or lip swelling no oral lesions no airway edema or compromise; no secondary findings in the posterior pharynx to suggest infection Eyes PERRL and EOMs intact bilaterally General Eye ED: Negative for scleral icterus Neck supple Neck Narrative: Positive bilateral JVD noted Chest Wall palpation of chest normal Resp Resp Narrative: Patient is in mild to moderate respiratory distress with tachypnea and accessory muscle use Breath sounds are diminished throughout with diffuse expiratory wheeze and bilateral crackles Cardio regular rhythm Rate: tachycardic GI non-tender, non-distended and no masses GI Narrative: Soft nontender nondistended with hypoactive bowel sounds No voluntary guarding or rigidity or pulsatile mass No peritoneal sign Auscultation: hypoactive bowel sounds Palpation: soft Extremity Extremity Narrative: Patient has +3-4 pitting edema extending from the toes into the mid thighs and there is also edema noted through bilateral arms consistent with anasarca Neuro oriented x3, CN's II-XII intact bilaterally and no sensory deficits noted Sensorium / Orientation: alert Motor Exam: strength 5/5 throughout Psych Mood & Affect: anxious Skin no rashes or lesions noted and no wounds General Skin Exam: Negative for jaundice MDM MDM MDM Narrative Medical decision making narrative: Patient arrived to ER hypertensive and tachycardic. Despite her complaint of shortness of breath her pulse ox was 93 to 96% on room air. Her previous ER visit and hospital stay were reviewed. As her history and exam is most consistent with CHF exacerbation even though she is not hypoxic I do feel she would benefit from BiPAP as she is showing signs of respiratory distress so this was placed on the patient. Blood work was obtained to assess for acute blood loss anemia electrolyte abnormality or worsening kidney function. Her creatinine has increased from essentially 2.4-2.9. Her proBNP has worsened changing from essentially 17,000-20,000. Her troponins have also increased from approximately 125-240. Her EKG does not show ischemic changes however and therefore the elevation is most likely due to her tachycardia and hypertension and CHF. This correlates with the consultation from cardiology at her previous visit. As the patient is having worsening kidney function I held off on using diuretics or ISABEL inhibitors at this time. She was given sublingual nitro to reduce preload. As the patient is showing worsening heart failure and kidney failure since the last visit and she is not taking any medication for her diabetes and she may need dialysis based on her worsening function I do not feel she is safe for home. Therefore the case was discussed with the hospitalist who agrees accept the patient for continued care. History & Record Review Discussion w/independent historian: Patient Additional record(s) reviewed:: Prior inpatient record, Prior ED visit and Prior labs Lab Data Attestation: I reviewed the patient's lab results. Labs: Laboratory Results - last 24 hr 05/20/25 00:48 WBC 9.8 RBC 3.51 L Hgb 10.3 L Hct 30.9 L MCV 88.0 MCH 29.3 MCHC 33.3 RDW Std Deviation 43.0 RDW Coeff of Giselle 13.5 Plt Count 384 MPV 11.6 Immature Gran % (Auto) 0.400 Neut % (Auto) 69.4 Lymph % (Auto) 20.5 Boyle % (Auto) 6.6 Eos % (Auto) 2.2 Baso % (Auto) 0.9 Absolute Neuts (auto) 6.8 Absolute Lymphs (auto) 2.01 Nucleated RBC % 0 Sodium 136 Potassium 4.0 Chloride 104 Carbon Dioxide 20.3 L Anion Gap 12 BUN 35 H Creatinine 2.85 H Estim Creat Clear Calc 25.74 L Est GFR (MDRD) Non-Af 20 L BUN/Creatinine Ratio 12.2 Glucose 348 H Hemoglobin A1c 9.5 H Calcium 8.4 Magnesium 2.2 Troponin T High Sens 244 [place]* [place] [address] H Radiography Diagnostic Testing: Clinical Impression(s) from Imaging Studies Chest X-Ray 05/20/25 01:20 IMPRESSION: Mild increase in bilateral pleural effusions. Mild increase in passive atelectatic airspace disease of the lower lobes. Increased interstitial pulmonary congestion. Reading Location: [place] [id number] Chest x-ray as interpreted by the emergency medicine physician reveals cardiomegaly with pulmonary vascular congestion consistent with CHF Management Discussion w/another healthcare provider: Hospitalist Discharge Plan Dx/Rx/DC Orders Clinical Impression: Acute exacerbation of congestive heart failure, Hypertension, Acute kidney injury, DM type 2 (diabetes mellitus, type 2), Elevated troponin Disposition Disposition: Acute Care Hospital [facility] Discharge Date/Time: 05/20/25 03:41
--- OUTSIDE RECORDS SUMMARY | 2025-05-20 03:21 | XMS RPT_ITS | CCD ---
Author Organization [facility] Inform ion [facility] Care Team Providers Care Side Laster Staple Name Role Phone Pierce Pemberton MD Unavailable Porsha Salas Unavailable Unavailable Joey Bradshaw MD Primary Care Provider Joey Bradshaw MD Primary Care Provider Riya Silverio DO Primary Care Provider Anastasiia Joaquin MD Unavailable [phone] Care Physician, No Primary Primary Care [...] [HYDROCODONE-ACET AMINOPHEN] Drug Allergy 3 GI Upset [facility] Other [place] Repository (10 sources) HYDROmorphone; Translations: [HYDROMORPHONE (BULK)] Drug Allergy 3 Mental Status Change [facility] Repository (14 sources) traMADol; Translations: [TRAMADOL] Drug Allergy 6 Other: See Comments [facility] Repository Comment on above: HEART RACING (4 sources) HYDROcodone; Translations: [hydrocodone bitartrate] Drug Allergy 2 Vomiting [facility] (4 sources) HYDROmorphone; Translations: [hydromorphone HCl] Drug Allergy 2 Other [facility] Medications Current Medications Medication Drug Class(es) Dates [...] One tablet by mouth daily AMITRIPTYLINE HCL [id number] Austin Bello DO Comment on above: Take [...] on above: Take 1 capsule by mo [facility] one time a week. doxycycline monohydrate [...] tablet by mouth twice daily DOXYCYCLINE HYCLATE [id number] Natacha Alfred LPN Start: 04-21-2013 End: 05-15-2013 take 1 capsule by mouth twice daily Doxycycline Hyclate 100 MG capsule Discontinued 100 mg PO TWICE A DAY April 21, 2013 12:00am May 15, 2013 1:37pm Start: 03-14-2012 End: 08-27-2012 take 1 tablet by mouth twice daily VIBRAMYCIN 100 MG CAPS One tablet by mouth twice daily DOXYCYCLINE HYCLATE [id number] Pierce Pemberton MD Start: 03-14-2012 End: 08-27-2012 take 1 tablet by mouth twice daily VIBRAMYCIN 100 MG CAPS One tablet by mouth twice daily DOXYCYCLINE HYCLATE [id number] Pierce Pemberton MD Start: 06-08-2011 End: 08-27-2012 take 1 tablet by mouth once daily at mealtime DOXYCYCLINE HYCLATE 100 MG TABS 1 tab by mouth daily with food. DOXYCYCLINE HYCLATE [id number] Pierce Pemberton MD Comment on above: Take 1 capsule by mo [facility] twice daily. ibuprofen 600 mg oral [...] twice daily as needed for pain IBUPROFEN [id number] Pierce Pemberton MD Comment on above: Take [...] glargine LANTUS 100 UNIT/ML SOLN INSULIN GLARGINE [id number] Pierce Pemberton MD 08-26-2013 [facility] ([id number]) 08/26/2013 Active Start: 08-26-2013 LANTUS 100 UNI T/ML SOLN INSULIN GLARGINE 24863510751 Pierce Pemberton MD Comment on above: insulin glargine PORFIRIO TUS 100 UNIT/ML SOLN INSULIN GLARGINE 82771562266 Pierce Pemberton MD 08-26-2013 [facility] ([id number]) Inject 13 Units subc utaneously twice daily. [...] Two tablets by mouth daily METFORMIN HCL 71074500277 Austin Bello DO take 1 tablet by greg th twice daily METFORMIN HCL ER (OSM) 1000 MG [id number] One tablet by mouth twice daily METFORMIN HCL 52594439749 Pierce Pemberton MD take 1 tablet by greg th twice daily METFORMIN HCL ER (OSM) 1000 MG [id number] One tablet by mouth twice daily METFORMIN HCL 95674235779 Pierce Pemberton MD Comment on above: Take [...] One tablet by mouth twice daily SULFAMETHOXAZOLE-TRIMETHOPRIM [id number] Natacha Alfred LPN Start: 08-27-2012 take 1 tablet by greg th twice daily BACTRIM DS 800-160 MG TABS One tablet by mouth twice daily SULFAMETHOXAZOLE-TRIMETHOPRIM 02114076149 Pierce Pemberton MD Start: 08-27-2012 End: 07-14-2014 take 1 tablet by mouth twice daily BACTRIM DS 800-160 MG TABS One tablet by mouth twice daily SULFAMETHOXAZOLE-TRIMETHOPRIM 40036995593 Natacha Alfred LPN Completed/Discontinued Medications Medication Drug [...] mouth daily as needed for pain OXYCODONE-ACETAMINOPHEN [id number] Pierce Pemberton MD Start: 07-12-2015 End: 03-07-2017 take 1 tablet by mouth once daily as needed for pain PERCOCET 7.5-325 MG TABS One tablet by mouth daily as needed for pain OXYCODONE-ACETAMINOPHEN 14296664643 Natacha Alfred LPN Start: 07-12-2015 take 1 tablet by greg th once daily as needed for pain PERCOCET 7.5-325 MG TABS One tablet by mouth daily as needed for pain OXYCODONE-ACETAMINOPHEN [id number] Pierce Pemberton MD Start: 01-22-2015 End: 03-07-2017 take 1 tablet by mouth twice daily as needed for pain PERCOCET 7.5-325 MG TABS One tablet by mouth twice daily as needed for pain OXYCODONE-ACETAMINOPHEN [id number] Pierce Pemberton MD Start: 01-22-2015 End: 03-07-2017 take 1 tablet by mouth twice daily as needed for pain PERCOCET 7.5-325 MG TABS One tablet by mouth twice daily as needed for pain OXYCODONE-ACETAMINOPHEN [id number] Natacha Alfred LPN Start: 01-22-2015 take 1 tablet by greg th twice daily as needed for pain PERCOCET 7.5-325 MG TABS One tablet by mouth twice daily as needed for pain OXYCODONE-ACETAMINOPHEN [id number] Pierce Pemberton MD Start: 11-20-2014 End: 03-07-2017 take 1-2 tablets by mouth four times daily as needed for pain PERCOCET 7.5-325 MG TABS one to two tablets by mouth four times daily as needed for pain OXYCODONE-ACETAMINOPHEN 85139157270 Natacha Alfred LPN Start: 11-20-2014 take 1-2 tablets by mouth four times daily as needed for pain PERCOCET 7.5-325 MG TABS one to two tablets by mouth four times daily as needed for pain OXYCODONE-ACETAMINOPHEN [id number] Pierce Pemberton MD Start: 10-29-2014 End: 03-07-2017 take 1-2 tablets by mouth four times daily as needed for pain PERCOCET 5-325 MG TABS one to two tablet s by mouth four times daily as needed for pain OXYCODONE-ACETAMINOPHEN 95334942560 Natacha Alfrde LPN Start: 10-29-2014 take 1-2 tablets by mouth four times daily as needed for pain PERCOCET 5-325 MG TABS one to two tablet s by mouth four times daily as needed for pain OXYCODONE-ACETAMINOPHEN [id number] Pierce Pemberton MD Start: 10-21-2014 End: 03-07-2017 take 1-2 tablets by mouth four times daily as needed for pain PERCOCET 7.5-325 MG TABS one to two tablets by mouth four times daily as needed for pain OXYCODONE-ACETAMINOPHEN 66228738434 Natacha Alfred LPN Start: 10-21-2014 End: 03-07-2017 take 1-2 tablets by mouth four times daily as needed for pain PERCOCET 7.5-325 MG TABS one to two tablets by mouth four times daily as needed for MODERATE pain OXYCODONE-ACETAMINOPHEN [id number] Natacha Alfred LPN Start: 10-21-2014 take 1-2 tablets by mouth four times daily as needed for pain PERCOCET 7.5-325 MG TABS one to two tablets by mouth four times daily as needed for MODERATE pain OXYCODONE-ACETAMINOPHEN 20952904402 Pierce Pembertno MD Start: 07-29-2014 End: 03-07-2017 take 1-2 tablets by mouth four times daily as needed for pain PERCOCET 5-325 MG TABS one to two tablet s by mouth four times daily as needed for pain OXYCODONE-ACETAMINOPHEN 94275094700 Natacha Alfred LPN Start: 07-29-2014 take 1-2 tablets by mouth four times daily as needed for pain PERCOCET 5-325 MG TABS one to two tablet s by mouth four times daily as needed for pain OXYCODONE-ACETAMINOPHEN [id number] Pierce Pemberton MD Start: 07-22-2014 End: 07-12-2015 take 1-2 tablets by mouth four times daily as needed for pain PERCOCET 5-325 MG TABS one to two tablet s by mouth four times daily as needed for pain OXYCODONE-ACETAMINOPHEN [id number] Natacha Alfred LPN Start: 07-22-2014 take 1-2 tablets by mouth four times daily as needed for pain PERCOCET 5-325 MG TABS one to two tablet s by mouth four times daily as needed for pain OXYCODONE-ACETAMINOPHEN [id number] Pierce Pemberton MD Start: 07-14-2014 take 1 tablet by greg th four times daily as needed for pain PERCOCET 5-325 MG TABS One tablet by mouth four times daily as needed for pain OXYCODONE-ACETAMINOPHEN 12261529329 Pierce Pemberton MD Start: 07-14-2014 End: 07-12-2015 take 1 tablet by mouth four times daily as needed for pain PERCOCET 5-325 MG TABS One tablet by mouth four times daily as needed for pain OXYCODONE-ACETAMINOPHEN 68237386964 Natacha Alfred LPN Start: 06-01-2013 End: 07-12-2013 [...] times daily as needed for pain OXYCODONE-ACETAMINOPHEN [id number] Pierce Pemberton MD Start: 08-27-2012 End: 08-26-2013 take 1-2 tablets by mouth four times daily as needed for pain PERCOCET 5-325 MG TABS one to two tablet s by mouth four times daily as needed for pain OXYCODONE-ACETAMINOPHEN 72020047575 Pierce Pemberton MD Start: 03-14-2012 End: 03-07-2017 take 1-2 tablets by mouth four times daily as needed for pain PERCOCET 5-325 MG TABS one to two tablet s by mouth four times daily as needed for pain OXYCODONE-ACETAMINOPHEN 34007677388 Natacha Giang Alfred BRE Start: 03-14-2012 take 1-2 tablets by mouth four times daily as needed for pain PERCOCET 5-325 MG TABS one to two tablet s by mouth four times daily as needed for pain OXYCODONE-ACETAMINOPHEN 17813612490 Pierce Pemberton MD Start: 03-14-2012 End: 08-27-2012 take 1-2 tablets by mouth four times daily as needed for pain PERCOCET 5-325 MG TABS one to two tablet s by mouth four times daily as needed for pain OXYCODONE-ACETAMINOPHEN [id number] Pierce Pemberton MD End: 08-27-2012 PERCOCET 5-325 MG TABS One t ablet by mouth six times daily, as needed OXYCODONE-ACETAMINOPHEN 32019371766 Austin Bello DO PERCOCET 5-325 M G TABS One tablet by mouth six times daily, as needed OXYCODONE-ACETAMINOPHEN 25340163277 Austin Bello DO End: 08-27-2012 PERCOCET 5-325 MG TABS One t ablet by mouth six times daily, as needed OXYCODONE-ACETAMINOPHEN 80385869578 Pierce Pemberton MD apple cider vinegar 500 [...] tablet by mouth twice daily CIPROFLOXACIN HCL 43249879855 Natacha Alfred LPN clindamycin 300 mg oral [...] LOTN apply twi ce daily CLINDAMYCIN PHOSPHATE [id number] Austin Bello DO End: 07-12-2015 CLINDAMYCIN HCL CAPS CLINDAM YCIN HCL CAPS 05187724567 Natacha Alfred LPN CLINDAMYCIN HCL CAPS CLINDAMYCIN HCL CAPS 73240755502 Natacha Rahat Alfred LPN End: 08-27-2012 CLEOCIN-T 1 % LOTN apply twi ce daily CLINDAMYCIN PHOSPHATE 25089015627 Pierce Pemberton MD CLEOCIN-T 1 % LO TN apply twice daily CLINDAMYCIN PHOSPHATE 75427787409 Austin Bello DO diazePAM 5 mg oral tablet (13 sources) Benzodiazepine Start: 07-29-2014 End: 03-07-2017 take 1 tablet by mouth four times daily as needed for muscle spasms VALIUM 5 MG TABS One tablet by mouth four times daily as needed for spasm DIAZEPAM [id number] Peirce Pemberton MD docusate sodium 100 mg oral capsule (20 sources) Start: 09-24-2019 End: 01-25-2021 take 1 capsule by mouth once daily Docusate Sodium 100 MG capsule Discontinued 100 mg PO DAILY September 24, 2019 12:00am January 25, 2021 3:47pm Start: 10-21-2014 End: 03-07-2017 take 1 tablet by mouth twice daily COLACE 100 MG CAPS One tablet by mouth twice daily DOCUSATE SODIUM 70106647014 Natacha Alfred LPN Start: 10-21-2014 End: 03-07-2017 take 1 tablet by mouth twice daily COLACE 100 MG CAPS One tablet by mouth twice daily DOCUSATE SODIUM 82414461053 Natacha Alfred LPN take 2 tablets by mo [facility] once daily DOC-Q-LACE LIQD Two tablets by mouth daily DOCUSATE SODIUM LIQD 37413363586 Austin Bello DO End: 08-27-2012 take 2 tablets by mouth once daily DOC-Q-LACE LIQD Two tablets by mouth daily DOCUSATE SODIUM LIQD 45938290521 Pierce Pemberton MD DOCUSATE SODIUM LIQD (6 sources) End: 08-27-2012 take 2 tablets by mouth once daily DOC-Q-LACE LIQD Two tablets by mouth daily DOCUSATE SODIUM LIQD 74702357487 Pierce Pemberton MD take 2 tablets by mouth once john ly DOC-Q-LACE LIQD Two tablets by mouth daily DOCUSATE SODIUM LIQD 04249915422 Austin Bello DO ferrous sulfate 325 mg [...] TABS One tablet by mouth daily FLUCONAZOLE 58784379828 Natacha Alfred LPN Start: 06-01-2013 End: 07-12-2013 take 1 tablet by mouth once Fluconazole (Diflucan) 150 MG tablet Discontinued 150 mg PO ONE TIME June 01, 2013 1:00am July 12, 2013 3:51pm gabapentin 600 mg oral tablet (20 sources) Anti-epileptic Agent Start: 08-26-2013 take 2 tablets by mouth once daily NEURONTIN 600 MG TABS Two tablets by mouth daily GABAPENTIN 38159679501 Pierce Pemberton MD End: 08-27-2012 take 1 tablet by mouth once daily GABAPENTIN 600 MG TABS One tablet by mouth daily GABAPENTIN 39303286946 Pierce Pemberton MD End: 07-12-2015 GABAPENTIN CAPS GABAPENTIN C APS 40151067192 Natacha Alfred LPN GABAPENTIN CAPS GABAPENTIN CAPS 06652906892 Natacha Alfred LPN HYDROmorphone hydrochloride 2 mg oral tablet (20 sources) Opioid Agonist Start: 03-29-2012 End: 03-07-2017 take 1-2 tablets by mouth four times daily as needed for pain DILAUDID 2 MG TABS one to two tablets by mouth four times daily as needed for pain HYDROMORPHONE HCL 88579111871 Pierce Pemberton MD INSULIN DETEMIR SOLN (7 sources) Insulin Analogue LEVEMIR FLEXPEN SOPN INSULIN DETEMIR SOLN 14893818729 Austin Bello DO LEVEMIR FLEXPEN SOLN INSULIN DETEMIR SOLN 80939815834 Austin D Bello DO 3 ml insulin lispro 100 unt/ml pen injector (14 sources) Insulin Analogue End: 08-27-2012 HUMALOG [place]EN SOLN INSULIN LISPRO (HUMAN) SOLN 15665114379 Pierce Pemberton MD HUMALOG [place]EN SOLN INSULIN LISPRO (HUMAN) SOLN 85033652658 Austin D Bello DO End: 08-27-2012 HUMALOG [place] SOLN INSULIN LISPRO (HUMAN) SOLN 21546471637 Pierce Pemberton MD lactobacillus (14 sources) Start: 07-22-2014 End: 07-12-2015 take 1 tablet by mouth twice daily ACIDOPHILUS PROBIOTIC TABS One tablet by mouth twice daily LACTOBACILLUS 96652337315 Natacha Alfred LPN Start: 07-22-2014 take 1 tablet by greg th twice daily ACIDOPHILUS PROBIOTIC TABS One tablet by mouth twice daily LACTOBACILLUS 92373341364 Pierce Pemberton MD Start: 07-22-2014 End: 07-12-2015 take 1 tablet by mouth twice daily ACIDOPHILUS PROBIOTIC TABS One tablet by mouth twice daily LACTOBACILLUS 99232426888 Natacha Rahat Alfred LPN Start: 07-22-2014 take 1 tablet by greg th twice daily ACIDOPHILUS PROBIOTIC TABS One tablet by mouth twice daily LACTOBACILLUS 48077969174 Pierce Pemberton MD levoFLOXacin 500 mg oral tablet (13 sources) Quinolone Antimicrobial Start: 10-21-2014 End: 03-07-2017 take 1 tablet by mouth once daily LEVAQUIN 500 MG TABS One tablet by mouth daily LEVOFLOXACIN 92425288143 Natacha Alfred LPN metroNIDAZOLE 500 mg oral tablet (20 sources) Nitroimidazole Antimicrobial Start: 03-28-2012 End: 07-12-2015 take 1 tablet by mouth three times daily FLAGYL 500 MG TABS One tablet by mouth three times daily METRONIDAZOLE 26770558455 Pierce Pemberton MD minocycline 100 mg oral tablet (14 sources) Tetracycline-class Drug Start: 07-24-2014 End: 07-12-2015 take 1 tablet by mouth twice daily MINOCYCLINE HCL 100 MG TABS One tablet by mouth twice daily MINOCYCLINE HCL 15389754267 Pierce Pemberton MD naproxen 500 mg oral [...] daily as needed for nausea PROMETHAZINE HCL 57601283579 Natacha Alfred LPN vitamin B12 (3 sources) [...] Mult Confirmon 05-07-2025 ANTI-DNA (DS)AB TNP Normal [facility] Comment on above: Performed By: #### L 501.5200, L100.0100, L500.4050 #### [facility] [address] [place], [address] ANTI-SS-A TNP Normal [facility] Comment on above: Performed By: #### L 501.5200, L100.0100, L500.4050 #### [facility] [address] [place], [address] ANTI-SS-B TNP Normal [facility] Comment on above: Performed By: #### L 501.5200, L100.0100, L500.4050 #### [facility] [address] [place], [address] ANCAon 05-07-2025 Atypical pANCA <1:20 Normal Neg:<1:20 [facility] Comment on above: Result Comment: The atypical pANCA pattern has been observed in a significant percentage of patients with ulcerative colitis, primary sclerosing cholangitis and autoimmune hepatitis. Performed at: [address] [id number] [place] Inspector: Trey Arias PhD, Phone: [phone] Performed By: #### L 501.5200, L100.0100, L500.4050 #### [facility] [address] [place], [address] Cytoplasmic Ab <1:20 Normal Neg:<1:20 [facility] Comment on above: Performed By: #### L 501.5200, L100.0100, L500.4050 #### [facility] [address] [place], [address] Perinuclear Ab. <1:20 Normal Neg:<1:20 [facility] Comment on above: Result Comment: The presence of positive fluorescence exhibiting P-ANCA or C-ANCA patterns alone is not specific for the diagnosis of Kel's Granulomatosis (WG) or microscopic polyangiitis. Decisions about treatment should not be based solely on ANCA IFA results. The International ANCA [employer] Consensus recommends follow up testing of positive sera with both NJ- 3 and MPO-ANCA enzyme immunoassays. As many as 5% serum samples are positive only by EIA. Ref. AM J Clin Pathol 1999;111:507-513. Performed By: #### L 501.5200, L100.0100, L500.4050 #### [facility] [address] [place], [address] Urine Cultureon 05-07-2025 URC Escherichia coli Laura Count >100,000 Escherichia coli: REACTION Ampicillin Islt [...] TMP SMX Islt FLORINDA <=20 S Normal [facility] Comment on above: Performed By: #### L 400.0001 #### [facility] [address] [place], [address] CBC W/Diff, Automatedon Absolute Neut Normal 2.0-7.7 [facility] Comment on above: Result Comment: Canc elled via OM: Order cancelled - Patient discharged Performed By: #### L 100.0100, L500.4050 #### [facility] [address] [place], [address] HCT Normal 37-47 [facility] Comment on above: Result Comment: Canc elled via OM: Order cancelled - Patient discharged Performed By: #### L 100.0100, L500.4050 #### [facility] [address] [facility] [place], [address] HGB Normal 12.0-15.0 [facility] Comment on above: Result Comment: Canc elled via OM: Order cancelled - Patient discharged Performed By: #### L 100.0100, L500.4050 #### [facility] [address] [place], [address] MCH Normal 27.0-32.0 [facility] Comment on above: Result Comment: Canc elled via OM: Order cancelled - Patient discharged Performed By: #### L 100.0100, L500.4050 #### [facility] [address] [place], [address] MCHC Normal 32-36 [facility] Comment on above: Result Comment: Canc elled via OM: Order cancelled - Patient discharged Performed By: #### L 100.0100, L500.4050 #### [facility] [address] [place], [address] MCV Normal 81-99 [facility] Comment on above: Result Comment: Canc elled via OM: Order cancelled - Patient discharged Performed By: #### L 100.0100, L500.4050 #### [facility] [address] [place], [address] NEUT% Normal 47-70 [facility] Comment on above: Result Comment: Canc elled via OM: Order cancelled - Patient discharged Performed By: #### L 100.0100, L500.4050 #### [facility] [address] [place], [address] PLT Normal 150-450 [facility] Comment on above: Result Comment: Canc elled via OM: Order cancelled - Patient discharged Performed By: #### L 100.0100, L500.4050 #### [facility] [address] [place], [address] RBC Normal 4.2-5.4 [facility] Comment on above: Result Comment: Canc elled via OM: Order cancelled - Patient discharged Performed By: #### L 100.0100, L500.4050 #### [facility] [address] [place], [address] RDW CV Normal 11.6-14.6 [facility] Comment on above: Result Comment: Canc elled via OM: Order cancelled - Patient discharged Performed By: #### L 100.0100, L500.4050 #### [facility] [address] [place], [address] RDW SD Normal 35.1-43.9 [facility] Comment on above: Result Comment: Canc elled via OM: Order cancelled - Patient discharged Performed By: #### L 100.0100, L500.4050 #### [facility] [address] [place], [address] WBC Normal 4.4-11.0 [facility] Comment on above: Result Comment: Canc elled via OM: Order cancelled - Patient discharged Performed By: #### L 100.0100, L500.4050 #### [facility] [address] [place], [address] Comprehensive Metabolic Prof ilon 05-06-2025 ALB Normal 3.5-5.0 [facility] Comment on above: Result Comment: Canc elled via OM: Order cancelled - Patient discharged Performed By: #### L 100.0100, L500.4050 #### [facility] [address] [place], [address] ALK PHOS Normal 35-104 [facility] Comment on above: Result Comment: Canc elled via OM: Order cancelled - Patient discharged Performed By: #### L 100.0100, L500.4050 #### [facility] [address] [place], [address] ALT Normal <=34 [facility] Comment on above: Result Comment: Canc elled via OM: Order cancelled - Patient discharged Performed By: #### L 100.0100, L500.4050 #### [facility] [address] [place], [address] AST Normal <=31 [facility] Comment on above: Result Comment: Canc elled via OM: Order cancelled - Patient discharged Performed By: #### L 100.0100, L500.4050 #### [facility] [address] [place], [address] BUN Normal 4-19 [facility] Comment on above: Result Comment: Canc elled via OM: Order cancelled - Patient discharged Performed By: #### L 100.0100, L500.4050 #### [facility] [address] [place], [address] BUN/CRE Normal 10-20 [facility] Comment on above: Result Comment: Canc elled via OM: Order cancelled - Patient discharged Performed By: #### L 100.0100, L500.4050 #### [facility] [address] [place], [address] Calcium Normal 7.6-11.0 [facility] Comment on above: Result Comment: Canc elled via OM: Order cancelled - Patient discharged Performed By: #### L 100.0100, L500.4050 #### [facility] [address] [place], [address] CL Normal 98-108 [facility] Comment on above: Result Comment: Canc elled via OM: Order cancelled - Patient discharged Performed By: #### L 100.0100, L500.4050 #### [facility] [address] [place], [address] CO2 Normal 21.0-32.0 [facility] Comment on above: Result Comment: Canc elled via OM: Order cancelled - Patient discharged Performed By: #### L 100.0100, L500.4050 #### [facility] [address] [place], [address] CREAT,SERUM Normal 0.70-1.20 [facility] Comment on above: Result Comment: Canc elled via OM: Order cancelled - Patient discharged Performed By: #### L 100.0100, L500.4050 #### [facility] [address] [place], [address] eGFR Normal >60 [facility] Comment on above: Result Comment: Canc elled via OM: Order cancelled - Patient discharged Performed By: #### L 100.0100, L500.4050 #### [facility] [address] [place], [address] GAP Normal 5-15 [facility] Comment on above: Result Comment: Canc elled via OM: Order cancelled - Patient discharged Performed By: #### L 100.0100, L500.4050 #### [facility] [address] [place], [address] GLU Normal 70-99 [facility] Comment on above: Result Comment: Canc elled via OM: Order cancelled - Patient discharged Performed By: #### L 100.0100, L500.4050 #### [facility] [address] [place], [address] Potassium Normal 3.3-5.1 [facility] Comment on above: Result Comment: Canc elled via OM: Order cancelled - Patient discharged Performed By: #### L 100.0100, L500.4050 #### [facility] [address] [place], [address] T BILI Normal 0.00-1.30 [facility] Comment on above: Result Comment: Canc elled via OM: Order cancelled - Patient discharged Performed By: #### L 100.0100, L500.4050 #### [facility] [address] [place], [address] T PROT Normal 5.9-8.4 [facility] Comment on above: Result Comment: Canc elled via OM: Order cancelled - Patient discharged Performed By: #### L 100.0100, L500.4050 #### [facility] [address] [place], [address] Comprehensive Metabolic Profil Normal 133-145 [facility] Comment on above: Result Comment: Canc elled via OM: Order cancelled - Patient discharged Performed By: #### L 100.0100, L500.4050 #### [facility] [address] [place], [address] 12 Lead EKGon 05-05-2025 12 Lead EKG [facility] Cardiovascular Services [address] [place] [address] 12 Lead EKG 05/05/25 0547 MR#: [id number] Acct: [id number] Name: MINDY FAULKNER Rep #: [id number] : 1980 44 From: Lopez Polanco MD Attending Dr: Dr. Mariam Murry MD Status: DIS IN Ordering Dr: Taran Ortega DO Date: 05/05/25 Location: [facility] Sex: F AA Admitted: 05/05/25 Test Reason : CP Blood Pressure : */* mmHG Vent. Rate : 122 BPM Atrial Rate : 122 BPM P-R Int : 142 ms QRS Dur : 76 ms QT Int : 322 ms P-R-T Axes : 49 85 67 degrees QTcB Int : 458 ms Sinus tachycardia Nonspecific T wave abnormality Abnormal ECG Confirmed by Lopez Polanco ([id number]), market editor RENETTA FANG ([id number]) on 05/06/2025 12:34:40 PM Referred By: BITA Confirmed By: Lopez Polanco 05/06/25 1234 Date Lopez Polanco MD CC: Dr. Mariam Murry MD; Taran Ortega DO; No Primary Care Physician Signed Normal [facility] Basic Metabolic Profile (BMP )on 05-05-2025 BUN/CRE 12.6 RATIO Normal 10-20 [facility] Comment on above: Performed By: #### L 400.0001 #### [facility] [address] [place], [address] Calcium [Mass/Vol] 7.7 mg/dL Normal 7.6-11.0 [facility] Comment on above: Performed By: #### L 400.0001 #### [facility] [address] [place], [address] Chloride [Moles/Vol] 110 mmol/L High 98-108 [facility] Comment on above: Performed By: #### L 400.0001 #### [facility] [address] [place], [address] CO2 [Moles/Vol] 17.0 mmol/L Low 21.0-32.0 [facility] Comment on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 98-108 [facility] Comprehensive Metabolic Prof ilon 09-23-2024 Albumin [Mass/Vol] 2.2 g/dL Low 3.5-5.0 [facility] Comment on above: Performed By: #### L 501.5200, L100.0100, L500.4050 #### [facility] [address] [place], [address] Albumin/Globulin [Mass ratio] 0.7 {ratio} Low 0.9-2.4 [facility] Comment on above: Performed By: #### L 501.5200, L100.0100, L500.4050 #### [facility] [address] [place], [address] ALK PHOS 73 U/L Normal 35-104 [facility] Comment on above: Performed By: #### L 501.5200, L100.0100, L500.4050 #### [facility] [address] [place], [address] ALT [Catalytic activity/Vol] 15 U/L Normal <=34 [facility] Comment on above: Performed By: #### L 501.5200, L100.0100, L500.4050 #### [facility] [address] [place], [address] AST [Catalytic activity/Vol] 21 U/L Normal <=31 [facility] Comment on above: Result Comment: Hemo lysis present, Results??could be affected. ?? Performed By: #### L 501.5200, L100.0100, L500.4050 #### [facility] [address] [place], [address] BUN/CRE 12.2 RATIO Normal 10-20 [facility] Comment on above: Performed By: #### L 501.5200, L100.0100, L500.4050 #### [facility] [address] [place], [address] Calcium [Mass/Vol] 8.1 mg/dL Normal 7.6-11.0 [facility] Comment on above: Performed By: #### L 501.5200, L100.0100, L500.4050 #### [facility] [address] [place], [address] Chloride [Moles/Vol] 99 mmol/L Normal 98-108 [facility] Comment on above: Performed By: #### L 501.5200, L100.0100, L500.4050 #### [facility] [address] [place], [address] CO2 [Moles/Vol] 24.2 mmol/L Normal 21.0-32.0 [facility] Comment on above: Performed By: #### L 501.5200, L100.0100, L500.4050 #### [facility] [address] [place], [address] Creatinine [Mass/Vol] 0.95 mg/dL Normal 0.70-1.20 [facility] Comment on above: Performed By: #### L 501.5200, L100.0100, L500.4050 #### [facility] [address] [place], [address] ECRCL 70.64 ml/min Normal 50-250 [facility] Comment on above: Performed By: #### L 501.5200, L100.0100, L500.4050 #### [facility] [address] [place], [address] GAP 9 Normal 5-15 [facility] Comment on above: Performed By: #### L 501.5200, L100.0100, L500.4050 #### [facility] [address] [place], [address] GFR/1.73 sq M.predicted among non-blacks MDRD (S/P/Bld) [Vol rate/Area] 75 mL/min/{1.73_m2} Normal >60 [facility] Comment on above: Result Comment: mL/m in/1.73m2 CKD-EPI Creatinine Equation (2020) Performed By: #### L 501.5200, L100.0100, L500.4050 #### [facility] [address] [place], [address] Globulin (S) [Mass/Vol] 3.3 g/dL Normal 2.2-4.2 [facility] Comment on above: Performed By: #### L 501.5200, L100.0100, L500.4050 #### [facility] [address] [place], [address] Glucose [Mass/Vol] 415 mg/dL High 70-99 [facility] Comment on above: Performed By: #### L 501.5200, L100.0100, L500.4050 #### [facility] [address] [place], [address] Potassium [Moles/Vol] 3.6 mmol/L Normal 3.3-5.1 [facility] Comment on above: Result Comment: Hemo lysis present, Results??could be affected. ?? Performed By: #### L 501.5200, L100.0100, L500.4050 #### [facility] [address] [place], [address] Sodium [Moles/Vol] 132 mmol/L Low 133-145 [facility] Comment on above: Performed By: #### L 501.5200, L100.0100, L500.4050 #### [facility] [address] [place], [address] T BILI < 0.15 Normal 0.00-1.30 [facility] Comment on above: Performed By: #### L 501.5200, L100.0100, L500.4050 #### [facility] [address] [place], [address] T PROT 5.6 g/dL Low 5.9-8.4 [facility] Comment on above: Performed By: #### L 501.5200, L100.0100, L500.4050 #### [facility] [address] [place], [address] Urea nitrogen [Mass/Vol] 12 mg/dL Normal 4-19 [facility] Comment on above: Performed By: #### L 501.5200, L100.0100, L500.4050 #### [facility] [address] [place], [address] Emergency Department Summary on 09-23-2024 Emergency Department Summary [facility] Medical Records Department [address] [place] [address] Emergency Department Summary 09/23/24 MR#: [id number] Acct: [id number] Name: MINDY FAULKNER Rep #: [id number] : 1980 44 From: Jose Garza DO [...] not see a primary care physician. [facility] Medical History Wears dentures Wears glasses Anxiety [...] normal res (more content not included)... Normal [facility] Eosinophil percentageOrdered By: Jose Garza on 09-23-2024 Eosinophils/100 WBC (Bld) 2.9 % 0-5 [facility] Epithelial cells.squamous LM Ql (Urine sed)Ordered By: Jose Garza on 09-23-2024 Epithelial cells.squamous LM.HPF (Urine sed) [#/Area] 0 /[HPF] 5-10 [facility] Erythrocyte distribution wid th ratioOrdered By: Jose Garza on 09-23-2024 Erythrocyte distribution width (RBC) [Ratio] 12.0 % 11.6-14.6 [facility] Erythrocyte distribution wid th standard deviationOrdered By: Jose Garza on 09-23-2024 Erythrocyte distribution width (RBC) [Entitic vol] 37.6 fL 35.1-43.9 [facility] Estimation of creatinine nara aranceOrdered By: Jose Garza on 09-23-2024 Estimated Creatinine Clearance Calc 70.64 ml/min 50-250 [facility] GFR/1.73 sq M.predicted maira g non-blacks MDRD (S/P/Bld) [Vol rate/Area]Ordered By: Jose Garza on 09-23-2024 Estimated GFR (MDRD) Non-Af Amer 75 >60 [facility] Comment on above: mL/min/1.73m2 CKD-EP I Creatinine Equation (2020) Glucose Ql (U)Ordered By: Yadira Garza on 09-23-2024 Glucose (U) [Mass/Vol] 1000 mg/dL High Normal [facility] Hematocrit Auto (Bld) [Volum e fraction]Ordered By: Jose Garza on 09-23-2024 Hematocrit (Bld) [Volume fraction] 38.8 % 37-47 [facility] Hemoglobin measurementOrdere d By: Jose Garza on 09-23-2024 Hemoglobin (Bld) [Mass/Vol] 13.5 g/dL 12.0-15.0 [facility] Immature granulocytes/100 WB C Auto (Bld)Ordered By: Jose Garza on 09-23-2024 Immature granulocytes/100 WBC (Bld) 0.300 % 0.0-0.9 [facility] Comment on above: IG% - Immature Granu locytes (promyelocytes, myelocytes and metamyelocytes) > 1% indicates that a LEFT SHIFT is Present. Ketones Test strip Ql (U)Ord ered By: Jose Garza on 09-23-2024 Ketones Ql (U) 5 mg/dl High Negative [facility] - Chemistry and C hemistry - challengeOrdered By: Jose Garza on 09-23-2024 AST [Catalytic activity/Vol] 21 U/L <32 [facility] Comment on above: Hemolysis present, R esults could be affected. Lymphocytes Auto (Unsp spec) [#/Vol]Ordered By: Jose Garza on 09-23-2024 Lymphocytes (Bld) [#/Vol] 2.36 10*3/uL 0.83-4.51 [facility] Lymphocytes/100 WBC Auto (Un sp spec)Ordered By: Jose Garza on 09-23-2024 Lymphocytes/100 WBC (Bld) 35.8 % 19-41 [facility] MCV (mean corpuscular volume ) determinationOrdered By: Jose Garza on 09-23-2024 MCV (RBC) [Entitic vol] 85.7 fL 81-99 [facility] Magnesiumon 09-23-2024 Magnesium [Mass/Vol] 1.8 mg/dL Normal 1.5-2.2 [facility] Comment on above: Performed By: #### L 501.5200, L100.0100, L500.4050 #### [facility] [address] [place], [place], [address] Magnesium (Unsp spec) [Mass/ Vol]Ordered By: Jose Garza on 09-23-2024 Magnesium [Mass/Vol] 1.8 mg/dL 1.5-2.2 [facility] Mean corpuscular hemoglobin (MCH) determinationOrdered By: Jose Garza on 09-23-2024 MCH (RBC) [Entitic mass] 29.8 pg 27.0-32.0 [facility] Mean corpuscular hemoglobin concentration (MCHC) determinationOrdered By: Jose Garza on 09-23-2024 MCHC (RBC) [Mass/Vol] 34.8 g/dL 32-36 [facility] Mean platelet volume determi nationOrdered By: Jose Garza on 09-23-2024 Platelet mean volume (Bld) [Entitic vol] 11.0 fL 6.2-12.0 [facility] Microscopic analysis of urin e for red blood cells (RBC)Ordered By: Jose Garza on 09-23-2024 Urine RBC 5-10 SEEN /hpf 0-5 [facility] Monocyte percentageOrdered B y: Jose Garza on 09-23-2024 Monocytes/100 WBC (Bld) 6.8 % 0-10 [facility] Mucus LM Ql (Urine sed)Order ed By: Jose Garza on 09-23-2024 Mucus Ql (Urine sed) RARE /hpf [facility] Neutrophil percentageOrdered By: Jose Garza on 09-23-2024 Neutrophils/100 WBC (Bld) 53.1 % 47-70 [facility] Nitrite Test strip Ql (U)Ord ered By: Jose Garza on 09-23-2024 Nitrite Ql (U) Negative Negative [facility] Nucleated red blood cell per centageOrdered By: Jose Garza on 09-23-2024 Nucleated RBC/100 WBC (Bld) [Ratio] 0 % 0-5 [facility] Platelet countOrdered By: Yadira Garza on 09-23-2024 Platelets (Bld) [#/Vol] 285 10*3/uL 150-450 [facility] Potassium (Unsp spec) [Mass/ Vol]Ordered By: Emelia Kayla on 09-23-2024 Potassium [Moles/Vol] 3.6 mmol/L 3.3-5.1 [facility] Comment on above: Hemolysis present, R esults could be affected. Protein Test strip Ql (U)Ord ered By: Emelia Kayla on 09-23-2024 Protein Ql (U) 500 mg/dl High Negative [facility] RBC Auto (Bld) [#/Vol]Ordere d By: Emeliaus Freemanatnionette on 09-23-2024 RBC (Bld) [#/Vol] 4.53 10*6/uL 4.2-5.4 [facility] Serum creatinine measurement (mass/volume)Ordered By: Jose Garza on 09-23-2024 Creatinine [Mass/Vol] 0.95 mg/dL 0.70-1.20 [facility] Serum globulin measurementOr dered By: Emeliaus Garza on 09-23-2024 Globulin (S) [Mass/Vol] 3.3 g/dL 2.2-4.2 [facility] Serum glucose measurement (m ass/volume)Ordered By: Jose Garza on 09-23-2024 Glucose [Mass/Vol] 415 mg/dL High 70-99 [facility] Serum or plasma alanine dunbar otransferase (ALT) measurementOrdered By: Jose Garza on 09-23-2024 ALT [Catalytic activity/Vol] 15 U/L <35 [facility] Serum or plasma albumin richard urement (mass/volume)Ordered By: Jose Garza on 09-23-2024 Albumin [Mass/Vol] 2.2 g/dL Low 3.5-5.0 [facility] Serum or plasma albumin/glob ulin mass ratioOrdered By: Jose Garza on 09-23-2024 Albumin/Globulin [Mass ratio] 0.7 {ratio} Low 0.9-2.4 [facility] Serum or plasma alkaline fili sphatase measurementOrdered By: Jose Garza on 09-23-2024 ALP [Catalytic activity/Vol] 73 U/L 35-104 [facility] Serum or plasma calcium richard urement (mass/volume)Ordered By: Remus Ungur on 09-23-2024 Calcium [Mass/Vol] 8.1 mg/dL 7.6-11.0 [facility] Serum or plasma urea nitroge n measurement (mass/volume)Ordered By: Remus Ungur on 09-23-2024 Urea nitrogen [Mass/Vol] 12 mg/dL 4-19 [facility] Sodium levelOrdered By: Remu s Ungur on 09-23-2024 Sodium [Moles/Vol] 132 mmol/L Low 133-145 [facility] Total proteinOrdered By: Rem us Ungur on 09-23-2024 Protein [Mass/Vol] 5.6 g/dL Low 5.9-8.4 [facility] Urinalysis, Completeon 09-23 BACTERIA 3+ /hpf Normal None Seen [facility] Comment on above: Order Comment: CLEAN CATCH Performed By: #### L 400.0001 #### [facility] [address] [place], [address] Mucus Ql (Urine sed) RARE Normal [facility] Comment on above: Order Comment: CLEAN CATCH Performed By: #### L 400.0001 #### [facility] [address] [place], [address] RBC 5-10 SEEN Normal 0-5 [facility] Comment on above: Order Comment: CLEAN CATCH Performed By: #### L 400.0001 #### [facility] [address] [place], [address] WBC 50-100 SEEN Normal 0-5 [facility] Comment on above: Order Comment: CLEAN CATCH Performed By: #### L 400.0001 #### [facility] [address] [place], [address] EPI,SQUAMOUS 0 SEEN Normal 5-10 [facility] Comment on above: Order Comment: CLEAN CATCH Performed By: #### L 400.0001 #### [facility] [address] [place], [address] Urine blood detectionOrdered By: Remus Kayla on 09-23-2024 Urine Occult Blood 50 /ul High Negative [facility] Urine clarityOrdered By: Rem us Kayla on 09-23-2024 Clarity (U) Cloudy Clear [facility] Urine color determinationOrd ered By: Remus Garza on 09-23-2024 Color (U) Straw Yellow [facility] Urine leukocyte esterase det ection by dipstickOrdered By: Remus Garza on 09-23-2024 Leukocyte esterase Test strip Ql (U) 100 /ul High Negative [facility] Urine pHOrdered By: Jose Un gur on 09-23-2024 pH (U) 6.5 [pH] 5.0 - 8.0 [facility] Urine sediment bacteria coun t by microscopy (number/high power field)Ordered By: Jose Garza on 09-23-2024 Bacteria LM.HPF (Urine sed) [#/Area] 3 /[HPF] None Seen [facility] Urine specific gravity measu rementOrdered By: Remus Garza on 09-23-2024 Specific gravity (U) [Rel density] 1.015 1.002-1.030 [facility] Urobilinogen Ql (U)Ordered B y: Jose Garza on 09-23-2024 Urine Urobilinogen Normal mg/dl Normal [facility] Venous Duplex US - Yoshi Extre mon 09-23-2024 Venous Duplex US - Yoshi Extrem [facility] [address] [place] [address] Venous Duplex US - Yoshi Extrem 09/23/24 1415 MR#: [id number] Acct: [id number] Name: MINDY FAULKNER Rep #: [id number] : 1980 44 From: Horace Perez MD [...] Date Dictated: 09/23/24 1415 Date Transcribed: 09/23/241957 Bingo Usher: Signed Normal [facility] White blood cell (WBC) count Ordered By: Jose Garza on 09-23-2024 WBC (Bld) [#/Vol] 6.6 10*3/uL 4.4-11.0 [facility] [place] White blood cell countOrdere d By: Jose Garza on 09-23-2024 Urine WBC 50-100 SEEN /hpf 0-5 [facility] CNPMaisha [facility]2024 [facility] TALATMINDY ([id number]) 1980 F Date Time Provider Department 07/08/24 [facility] During your visit today, we recorded the following information about you: Mali Mecrado 07/08/2024 9:14 AM Signed Patient called to [...] glargine LANTUS 100 UNIT/ML SOLN INSULIN GLARGINE [id number] Pierce Pemberton MD 08-26-2013 [facility] ([id number]) - L. acidophilus-L. rhamnosus 15 billion cell [...] Cyst with Abscess [L05.01] 03/15/2010 NO SHOW [[id number]] 05/01/2013 07/06/2014 Brachial plexus neuropathy [G54.0] 06/04/2013 Neuropathic pain [M79.2] 06/04/2013 Type 2 diabetes mellitus with 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 *10/23/2013 Hidradenitis suppurativa [L73.2] 10/26/2013 HPV test positive [[id number]] 07/16/2014 Tobacco use disorder [F17.200] 12/14/2016 History of substance abuse [F19.11] 07/23/2018 Pain in joint of left shoulder region [M25.512] 09/05/2018 Abnormal mammogram [R92.8] 10/14/2019 Encounter Status:Closed by MALI MERCADO on 07/08/24 [facility] 05-27-2024 [facility] MINDY FAULKNER ([id number]) 1980 F Date Time Provider Department 05/27/24 ANASTASIIA JOAQUIN [facility] During your visit today, we recorded [...] is also interested in speaking with our high school social studies teacher so I also let her know I would place a consult for [facility] SW. Provided number for suicide/crisis hotline [phone]. Patient has no questions. Anastasiia Joaquin MD 05/27/2024 9:13 AM Allergies As of Date: 05/27/2024 Noted Allergy Reaction DILAUDID (HYDROMORPHONE (BULK)) 07/16/2012 1 - Mental Status Change TRAMADOL 07/23/2015 14 - Other: See Comments Comments: Heart racing VICODIN (HYDROCODONE-ACETAMI NOPHE*07/16/2012 8 - GI Upset Date Reviewed: 05/23/2024 Reviewed by: Margie Thakur LPN - Fully Assessed Primary Visit Diagnosis:Mood disorder (HCC) [F39] Order(s):CONSULT TO LADLE OPERATOR ([facility] ONLY) [[id number]] Order #: [id number]: 1 Prescriptions as of 05/27/2024 - ibuprofen [...] glargine LANTUS 100 UNIT/ML SOLN INSULIN GLARGINE [id number] Pierce Pemberton MD 08-26-2013 [facility] ([id number]) - L. acidophilus-L. rhamnosus 15 billion cell [...] Cyst with Abscess [L05.01] 03/15/2010 NO SHOW [[id number]] 05/01/2013 07/06/2014 Brachial plexus neuropathy [G54.0] 06/04/2013 Neuropathic pain [M79.2] 06/04/2013 Type 2 diabetes mellitus with 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 *10/23/2013 Hidradenitis suppurativa [L73.2] 10/26/2013 HPV test positive [[id number]] 07/16/2014 Tobacco use disorder [F17.200] 12/14/2016 History of substance abuse [F19.11] 07/23/2018 Pain in joint of left shoulder region [M25.512] 09/05/2018 Abnormal mammogram [R92.8] 10/14/2019 Encounter Status:Closed by ANASTASIIA JOAQUIN on 05/27/24 [facility]OVon 05-23-2024 CNOV Office Visit ([facility]) MINDY FAULKNER ([id number]) 1980 F Date Time Provider Department 05/23/24 10:20 AM ANASTASIIA JOAQUIN [facility] During your visit today, we recorded the following information about you: Temperature Pulse Respiration Blood pressure 98 degrees 99/minute 18/minute 170/98 Weight Last Period 63.3 kg 04/18/24 Anastasiia Joaquin MD 05/23/2024 7:33 PM Signed Anastasiia Joaquin MD [facility] [address] [place] [address] Associate Director [facility] / [address] [place] [address] Visit Date: May 23, 2024 Name: Mindy Faulkner Date of : 1980 MRN/E #: [id number] Chief Complaint: Patient presents with: Establish Care: RT side arm, breast, and leg w/o injury x 1 month Patient has hidradenitis thinks pain is associated with disorder Subjective Mindy Faulkner is a 43 year old female here for a new patient visit to establish care and also for mood concerns Previously received care at [facility] 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 Hidradenitis [...] she would never harm herself -formerly saw [facility] - Dr. Corey, on medicine that altered [...] glargine LANTUS 100 UNIT/ML JONNY INSULIN GLARGINE [id number] Pierce Pemberton MD 08-26-2013 [facility] ([id number]) (Patient not taking: Reported on 05/23/2024) L. [...] gauge mi (more content not included)... Normal [facility] Absolute lymphocyte countOrd ered By: Dr. Hastings on 12-21-2022 Lymphocytes Auto (Unsp spec) [#/Vol] 2.55 10*3/uL 0.83-4.51 [facility] Basophil percentageOrdered B y: Dr. Hastings on 12-21-2022 Basophils/100 WBC (Bld) 1.1 % 0-1 [facility] Bilirubin [Mass/Vol] 0.20 mg/dL 0.20-1.00 [facility] Comment on above: For patients on eltr ombopag therapy, use of Dimension Ryan TBIL is not recommended. Chloride [Moles/Vol] 106 mmol/L 98-107 [facility] Eosinophils/100 WBC (Bld) 2.3 % 0-5 [facility] Glucose [Mass/Vol] 291 mg/dL 74-106 [facility] [place] Comment on above: Glucose result great er than or equal to 200 mg/dLsuggests DIABETES MELLITUS per A.D.A. criteria. Neutrophils (Bld) [#/Vol] 2.1 10*3/uL 2.0-7.7 [facility] Neutrophils/100 WBC (Bld) 39.7 % 47-70 [facility] Potassium [Moles/Vol] 4.0 mmol/L 3.5-5.1 [facility] Protein [Mass/Vol] 6.8 g/dL 6.4-8.2 [facility] [place] Sodium [Moles/Vol] 138 mmol/L 136-145 [facility] [place] WBC (Bld) [#/Vol] 5.3 10*3/uL 4.4-11.0 [facility] [place] Blood erythrocytes count (nu mber/volume)Ordered By: Dr. Hastings on 12-21-2022 RBC (Bld) [#/Vol] 4.35 10*6/uL 4.2-5.4 [facility] Blood hemoglobin measurement (mass/volume)Ordered By: Dr. Hastings on 12-21-2022 Hemoglobin (Bld) [Mass/Vol] 12.8 g/dL 12.0-15.0 [facility] Blood lymphocytes/100 leukoc ytesOrdered By: Dr. Hastings on 12-21-2022 Lymphocytes/100 WBC (Bld) 48.4 % 19-41 [facility] Blood monocytes/100 leukocyt esOrdered By: Dr. Hastings on 12-21-2022 Monocytes/100 WBC (Bld) 8.3 % 0-10 [facility] Blood platelet mean volumeOr dered By: Dr. Hastings on 12-21-2022 Platelet mean volume (Bld) [Entitic vol] 10.9 fL 6.2-12.0 [facility] Determination of erythrocyte mean corpuscular volume (MCV)Ordered By: Dr. Hastings on 12-21-2022 MCV (RBC) [Entitic vol] 86.9 fL 81-99 [facility] Erythrocyte sedimentation ra teOrdered By: Dr. Hastings on 12-21-2022 ESR (Bld) [Velocity] 12 mm/h 0-30 [facility] Hematocrit Auto (Bld) [Volum e fraction]Ordered By: Dr. Hastings on 12-21-2022 Hematocrit (Bld) [Volume fraction] 37.8 % 37-47 [facility] Laboratory - Chemistry and C hemistry - challengeOrdered By: Dr. Hastings on 12-21-2022 ALP [Catalytic activity/Vol] 79 U/L 45-117 [facility] ALT [Catalytic activity/Vol] 19 U/L 13-56 [facility] CK [Catalytic activity/Vol] 80 U/L 26-192 [facility] CO2 [Moles/Vol] 28.0 mmol/L 21.0-32.0 [facility] Globulin (S) [Mass/Vol] 3.8 g/dL 2.2-4.2 [facility] Urea nitrogen/Creatinine [Mass ratio] 17.2 mg/mg 10-20 [facility] Laboratory - Hematology and Cell countsOrdered By: Dr. Hastings on 12-21-2022 Erythrocyte distribution width (RBC) [Entitic vol] 39.6 fL 35.1-43.9 [facility] Erythrocyte distribution width (RBC) [Ratio] 12.4 % 11.6-14.6 [facility] Immature granulocytes/100 WBC (Bld) 0.200 % 0.0-0.9 [facility] Comment on above: IG% - Immature Granu locytes (promyelocytes, myelocytes and metamyelocytes) > 1% indicates that a LEFT SHIFT is Present. MCH (RBC) [Entitic mass] 29.4 pg 27.0-32.0 [facility] Nucleated RBC/100 WBC (Bld) [Ratio] 0 % 0-5 [facility] MCHC Auto (RBC) [Mass/Vol]Or dered By: Dr. Hastings on 12-21-2022 MCHC (RBC) [Mass/Vol] 33.9 g/dL 32-36 [facility] No Panel InformationOrdered By: Dr. Hastings on 12-21-2022 Estimated Creatinine Clearance Calc 64.52 ml/min [facility] Estimated GFR (MDRD) Amer 84 mL/min >60 [facility] Comment on above: GFR Calc Estimated GFR (MDRD) Non-Af Amer 70 mL/min >60 [facility] Comment on above: Non- GFR Calc Platelets bldOrdered By: Dr. Hastings on 12-21-2022 Platelets (Bld) [#/Vol] 244 10*3/uL 150-450 [facility] Serum or plasma albumin richard urement (mass/volume)Ordered By: Dr. Hastings on 12-21-2022 Albumin [Mass/Vol] 3.0 g/dL 3.2-5.0 [facility] [place] Serum or plasma albumin/glob ulin mass ratioOrdered By: Dr. Hastings on 12-21-2022 Albumin/Globulin [Mass ratio] 0.8 {ratio} 0.9-2.4 [facility] Serum or plasma calcium richard urement (mass/volume)Ordered By: Dr. Hastings on 12-21-2022 Calcium [Mass/Vol] 8.8 mg/dL 8.5-10.1 [facility] [place] Serum or plasma creatinine m easurement (mass/volume)Ordered By: Dr. Hastings on 12-21-2022 Creatinine [Mass/Vol] 0.93 mg/dL 0.55-1.02 [facility] Comment on above: The validity of the calculated GFR & GFRAA in patients over 70 years has not been determined. Clinical correlation is essential. Serum or plasma urea nitroge n measurement (mass/volume)Ordered By: Dr. Hastings on 12-21-2022 Urea nitrogen [Mass/Vol] 16 mg/dL 7-18 [facility] Thin prep Papanicolaou smear with manual screeningOrdered By: Dr. Hastings on 12-21-2022 Thin prep Papanicolaou smear with manual screening 12 U/L 15-37 [facility] Thin prep Papanicolaou smear with manual screening 4 5-15 [facility] Basophil percentageon 2021 Basophil percentage 0-5 SEEN /hpf 0-5 [facility] Work Phone: Bilirubin Test strip Ql (U)o n 06-26-2022 Bilirubin Ql (U) Negative Negative [facility] Work Phone: Ketones Test strip Ql (U)on 06-26-2022 Ketones Ql (U) 5 mg/dl Negative [facility] Work Phone: Mucus LM Ql (Urine sed)on Mucus Ql (Urine sed) 0 SEEN /hpf [facility] Work Phone: Nitrite Test strip Ql (U)on 06-26-2022 Nitrite Ql (U) Negative Negative [facility] Work Phone: Protein Test strip Ql (U)on 06-26-2022 Protein Ql (U) 100 mg/dl Negative [facility] Work Phone: Squamous epithelial cells de tection in urine sediment by light microscopyon 06-26-2022 Epithelial cells.squamous LM Ql (Urine sed) 0 SEEN /hpf 5-10 [facility] Work Phone: Urine blood detectionon 06-02 RBC Ql (U) 150 /ul Negative [facility] Work Phone: RBC Ql (U) 0-5 SEEN /hpf 0-5 [facility] Work Phone: Urine clarityon 06-26-2022 Clarity (U) Sl. Cloudy Clear [facility] Work Phone: Urine color determinationon 06-26-2022 Color (U) Straw Yellow [facility] Work Phone: Urine glucose detectionon Glucose Ql (U) 1000 mg/dl Normal [facility] Work Phone: Urine leukocyte esterase det ection by dipstickon 06-26-2022 Leukocyte esterase Test strip Ql (U) 25 /ul Negative [facility] Work Phone: Urine pHon 06-26-2022 pH (U) 5.0 [pH] 5.0 - 8.0 [facility] Work Phone: Urine sediment bacteria coun t by microscopy (number/high power field)on 06-26-2022 Bacteria LM.HPF (Urine sed) [#/Area] 4 /[HPF] None Seen [facility] Work Phone: Urine specific gravity measu rementon 06-26-2022 Specific gravity (U) [Rel density] 1.020 1.002-1.030 [facility] Work Phone: Urobilinogen Auto test strip Ql (U)on 06-26-2022 Urobilinogen Ql (U) Normal mg/dl Normal [facility] Work Phone: PROGRESSon 08-01-2018 Protein mass conc HNO ID: [id number] Author: Aury (Ct) CARRINGTON Arellano Service: (none) Author Type: Clinical Electrical Systems Drafter Type: Progress Notes Filed: 08/01/2018 9:36 AM Note Text: NAME:Mindy Faulkner DATE: August 01, 2018 CCF#: [id number] Upper Extremity X-Ray(s): Shoulder, AP / TRUE AP / AXILLARY / SUPRA OUTLET left COMPLETED TECH ID SIGN: AURY ARELLANO [facility] XR SHLDR >/=3V AP/WISAM AP/OTH R [...] and soft tissues are unremarkable. IMPRESSION: Negative Bingo Usher: PSCB Transcribe Date/Time: Aug 01 2018 10:06A Dictated by : PIERCE OLIVEROS MD This examination was interpreted and the report reviewed and electronically signed by: PIERCE OLIVEROS MD on Aug 01 2018 10:06AM EST [id number] [facility] Microbiology: Culture, Deep Woundon 03-26-2017 CUDW . Invalid Interpretation Code [facility] Work Phone: GE use only - for LinkLogic import when terms are not otherwise specified . Invalid Interpretation Code [facility] Work Phone: [phone] Microbiology: (P) Culture, D eep Woundon 03-25-2017 GE use only - for LinkLogic import when terms are not otherwise specified Vancomycin $ 1 S Invalid Interpretation Code [facility] Work Phone: [phone] Lab Report: Basic Metabolic Profile (BMP)on 03-24-2017 Anion gap 8 mmol/L Invalid Interpretation Code 5-15 [facility] Work Phone: [phone] BUN/Creatinine Ratio 21.1 RATIO High 10-[address] [facility] Work Phone: [phone] Calcium 8.4 mg/dL Low 8.5-10.1 [facility] Work Phone: [phone] Chloride 103 mmol/L Invalid Interpretation Code 98-107 [facility] Work Phone: [phone] CO2 24.0 mmol/L Invalid Interpretation Code 21.0-32.0 [facility] Work Phone: [phone] Creatinine 96.54 mL/min Invalid Interpretation Code [facility] Work Phone: [phone] Creatinine 0.66 mg/dL Invalid Interpretation Code 0.55-1.02 [facility] Work Phone: [phone] eGFR (non-black) 128 mL/min/{1.73_m2} Invalid Interpretation Code >60 [facility] Work Phone: [phone] eGFR (non-black) 106 mL/min/{1.73_m2} Invalid Interpretation Code >60 [facility] Work Phone: [phone] Glucose 282 mg/dL High 70-110 [facility] Work Phone: [phone] Potassium 4.0 mmol/L Invalid Interpretation Code 3.5-5.1 [facility] Work Phone: [phone] Sodium 135 mmol/L Low 136-145 [facility] Work Phone: [phone] Urea nitrogen 14 mg/dL Invalid Interpretation Code 7-18 [facility] Work Phone: [phone] Lab Report: Bedside Glucoseo n 03-24-2017 Glucose 288 mg/dL High 70-110 [facility] Work Phone: [phone] Lab Report: CBC-Complete Blo od Cnt No Diffon 03-24-2017 Erythrocytes (RBC) 4.31 10*6/uL Invalid Interpretation Code 4.2-5.4 [facility] Work Phone: [phone] Hematocrit (HCT) 38.2 % Invalid Interpretation Code 37-47 [facility] Work Phone: [phone] Hemoglobin (HGB) 12.9 g/dL Invalid Interpretation Code 12.0-15.0 [facility] Work Phone: [phone] MCH 29.9 pg Invalid Interpretation Code 27.0-32.0 [facility] Work Phone: [phone] MCHC 33.8 G/GL Invalid Interpretation Code 32-36 [facility] Work Phone: [phone] MCV 88.6 fL Invalid Interpretation Code 81-99 [facility] Work Phone: [phone] Platelets 190 10*3/mm3 Invalid Interpretation Code 150-450 [facility] Work Phone: [phone] PMV by Devang 11.9 fL Invalid Interpretation Code 6.2-12.0 [facility] Work Phone: [phone] RDW-CA 12.2 % Invalid Interpretation Code 11.6-14.6 [facility] Work Phone: [phone] red blood cell distribution width, size density 38.8 fL Invalid Interpretation Code 35.1-43.9 [facility] Work Phone: [phone] WBC (Leukocytes) 7.8 10*3/uL Invalid Interpretation Code 4.4-11.0 [facility] Work Phone: [phone] Microbiology: Fungus Stainon 03-24-2017 fungus stain . Invalid Interpretation Code [facility] Work Phone: [phone] Replaced Document: Basic Met abolic Profile (BMP)on 03-24-2017 Anion gap 4 molar conc 8 Invalid Interpretation Code 5-15 [facility] Work Phone: [phone] CO2 ppres (BldV) 24.0 mmol/L Invalid Interpretation Code 21.0-32.0 [facility] Work Phone: [phone] EST GFR - AA 128 mL/min Invalid Interpretation Code >60 [facility] Work Phone: [phone] Glucose mass conc 282 mg/dL High 70-110 [facility] Work Phone: [phone] Replaced Document: Bedside G scarletoseon 03-24-2017 Glucose mass conc 288 mg/dL High 70-110 [facility] Work Phone: [phone] Replaced Document: CBC-Compl ete Blood Cnt No Diffon 03-24-2017 Erythrocyte distribution width Auto Ratio (RBC) 38.8 fL Invalid Interpretation Code 35.1-43.9 [facility] Work Phone: [phone] Replaced Document: Fungus St meliza 03-24-2017 FUNST . Invalid Interpretation Code [facility] Work Phone: [phone] Lab Report: Basic Metabolic Profile (BMP)on 03-23-2017 Anion gap 9 mmol/L Invalid Interpretation Code 5-15 [facility] Work Phone: [phone] BUN/Creatinine Ratio 19.6 RATIO Invalid Interpretation Code 10-20 [facility] Work Phone: [phone] Calcium 8.3 mg/dL Low 8.5-10.1 [facility] Work Phone: [phone] Chloride 101 mmol/L Invalid Interpretation Code 98-107 [facility] Work Phone: [phone] CO2 24.0 mmol/L Invalid Interpretation Code 21.0-32.0 [facility] Work Phone: [phone] Creatinine 82.75 mL/min Invalid Interpretation Code [facility] Work Phone: [phone] Creatinine 0.77 mg/dL Invalid Interpretation Code 0.55-1.02 [facility] Work Phone: [phone] eGFR (non-black) 90 mL/min/{1.73_m2} Invalid Interpretation Code >60 [facility] Work Phone: [phone] eGFR (non-black) 109 mL/min/{1.73_m2} Invalid Interpretation Code >60 [facility] Work Phone: [phone] Glucose 307 mg/dL High 70-110 [facility] Work Phone: [phone] Potassium 3.8 mmol/L Invalid Interpretation Code 3.5-5.1 [facility] Work Phone: [phone] Sodium 134 mmol/L Low 136-145 [facility] Work Phone: [phone] Urea nitrogen 15 mg/dL Invalid Interpretation Code 7-18 [facility] Work Phone: [phone] Lab Report: Bedside Glucoseo n 03-23-2017 Glucose 316 mg/dL High 70-110 [facility] Work Phone: [phone] Lab Report: CRPon 03-23-2017 C reactive protein (CRP) 0.636 mg/dL High Uni ts converted. See lab report for original value. [facility] Work Phone: [phone] Lab Report: Erythrocyte Sed Rateon 03-23-2017 Erythrocyte sedimentation rate 33 mm/h High 0-20 [facility] Work Phone: [phone] Lab Report: Hemoglobin A1con 03-23-2017 HbA1c 11.1 % High 4.2-6.3 [facility] Work Phone: [phone] Lab Report: Prealbuminon Prealbumin 22.3 mg/dL Invalid Interpretation Code 20.0-40.0 [facility] Work Phone: [phone] Microbiology: (P) Culture, D eep Woundon 03-23-2017 GE use only - for LinkLogic import when terms are not otherwise specified . Invalid Interpretation Code [facility] Work Phone: [phone] Replaced Document: (P) CBC-C omplete Blood Cnt No Diffon 03-23-2017 Erythrocytes (RBC) 4.55 10*6/uL Invalid Interpretation Code 4.2-5.4 [facility] Work Phone: [phone] Hematocrit (HCT) 40.1 % Invalid Interpretation Code 37-47 [facility] Work Phone: [phone] Hemoglobin (HGB) 13.6 g/dL Invalid Interpretation Code 12.0-15.0 [facility] Work Phone: [phone] MCH 29.9 pg Invalid Interpretation Code 27.0-32.0 [facility] Work Phone: [phone] MCHC 33.9 G/GL Invalid Interpretation Code 32-36 [facility] Work Phone: [phone] MCV 88.1 fL Invalid Interpretation Code 81-99 [facility] Work Phone: [phone] Platelets 215 10*3/mm3 Invalid Interpretation Code 150-450 [facility] Work Phone: [phone] PMV by Devang 11.5 fL Invalid Interpretation Code 6.2-12.0 [facility] Work Phone: [phone] RDW-CA 12.4 % Invalid Interpretation Code 11.6-14.6 [facility] Work Phone: [phone] red blood cell distribution width, size density 39.7 fL Invalid Interpretation Code 35.1-43.9 [facility] Work Phone: [phone] WBC (Leukocytes) 13.3 10*3/uL High 4.4-11.0 [facility] Work Phone: [phone] Replaced Document: Prealbumi non 03-23-2017 Prealbumin Elph mass conc 22.3 mg/dL Invalid Interpretation Code 20.0-40.0 [facility] Work Phone: [phone] Lab Report: ,Urineo n 03-22-2017 Urine, test (choriogonadotropin presence) . Invalid Interpretation Code [facility] Work Phone: [phone] Replaced Document: ,Urineon 03-22-2017 HCG.beta subunit ( test) Ql (U) . Invalid Interpretation Code [facility] Work Phone: [phone] Office Visit: evaluation hid radenitison 03-07-2017 Fall risk assessment No Invalid Interpretation Code [facility] Work Phone: [phone] Tobacco smoking status NHIS Current every day smoker Invalid Interpretation Code [facility] Work Phone: [phone] Tobacco smoking status NHIS Never Invalid Interpretation Code [facility] Work Phone: [phone] Office Visit: evaluation hid radenitison 07-12-2015 Dietary management education, guidance, and counseling (procedure) yes Invalid Interpretation Code [facility] Work Phone: [phone] Documentation of current medications (procedure) Done Invalid Interpretation Code [facility] Work Phone: [phone] Smoking cessation education (procedure) yes Invalid Interpretation Code [facility] Work Phone: [phone] Tobacco smoking status NHIS Never Invalid Interpretation Code [facility] Work Phone: [phone] Tobacco smoking status NHIS Current every day smoker Invalid Interpretation Code [facility] Work Phone: [phone] Tobacco use [facility] Current every day smoker Invalid Interpretation Code [facility] Work Phone: [phone] Microbiology: Culture, Deep Woundon 01-20-2015 GE use only - for LinkLogic import when terms are not otherwise specified Cult, AnaerobicNo anaerobic bacteria isolated. Invalid Interpretation Code [facility] Work Phone: [phone] Lab Report: Basic Metabolic Profile (BMP)on 10-21-2014 Anion gap 8 mmol/L Invalid Interpretation Code 5-15 [facility] Work Phone: [phone] BUN/Creatinine Ratio 12.9 RATIO Invalid Interpretation Code 10-20 [facility] Work Phone: [phone] Calcium 7.7 mg/dL Low 8.5-10.1 [facility] Work Phone: [phone] Chloride 107 mmol/L Invalid Interpretation Code 98-107 [facility] Work Phone: [phone] CO2 24.0 mmol/L Invalid Interpretation Code 21.0-32.0 [facility] Work Phone: [phone] Creatinine 0.7 mg/dL Invalid Interpretation Code 0.6-1.0 [facility] Work Phone: [phone] eGFR (non-black) 101 mL/min/{1.73_m2} Invalid Interpretation Code >60 [facility] Work Phone: [phone] eGFR (non-black) 122 mL/min/{1.73_m2} Invalid Interpretation Code >60 [facility] Work Phone: [phone] Glucose 131 mg/dL High 70-110 [facility] Work Phone: [phone] Potassium 3.5 mmol/L Invalid Interpretation Code 3.5-5.1 [facility] Work Phone: [phone] Sodium 139 mmol/L Invalid Interpretation Code 136-145 [facility] Work Phone: [phone] Urea nitrogen 9 mg/dL Invalid Interpretation Code 7-18 [facility] Work Phone: [phone] Lab Report: CBC-Complete Blo od Cnt No Diffon 10-21-2014 Erythrocytes (RBC) 4.32 10*6/uL Invalid Interpretation Code 4.2-5.4 [facility] Work Phone: [phone] Hematocrit (HCT) 38.5 % Invalid Interpretation Code 37-47 [facility] Work Phone: [phone] Hemoglobin (HGB) 13.0 g/dL Invalid Interpretation Code 12.0-15.0 [facility] Work Phone: [phone] MCH 30.1 pg Invalid Interpretation Code 27.0-32.0 [facility] Work Phone: [phone] MCHC 33.8 G/GL Invalid Interpretation Code 32-36 [facility] Work Phone: [phone] MCV 89.1 fL Invalid Interpretation Code 81-99 [facility] Work Phone: [phone] Platelets 191 10*3/mm3 Invalid Interpretation Code 150-450 [facility] Work Phone: [phone] PMV by Devang 10.7 fL Invalid Interpretation Code 6.2-12.0 [facility] Work Phone: [phone] red blood cell distribution width, size density 42.2 fL Invalid Interpretation Code 35.1-43.9 [facility] Work Phone: [phone] WBC (Leukocytes) 6.1 10*3/uL Invalid Interpretation Code 4.4-11.0 [facility] Work Phone: [phone] Lab Report: Prealbuminon Prealbumin 19.9 mg/dL Low 20.0-40.0 [facility] Work Phone: [phone] Lab Report: Hemoglobin A1con 07-21-2014 HbA1c 10.9 % Critically high 4.2-6.3 [facility] Work Phone: [phone] Microbiology: STEVIEORSLBon 04- fungus culture isolated from skin, hair, nails NO YEAST OR MOLD ISOLATED AFTER 4 WEEKS. Normal [facility] Work Phone: [phone] fungus stain FUNGUS STAIN No yeast or mold observed. Normal [facility] Work Phone: [phone] Lab Report: PTTon 04-25-2011 aPTT 30.9 s Normal 24.1-36.2 [facility] Work Phone: [phone] Vital Signs Date Time Vital Sign Value Performing Clinician Facility 09-23-2024 15:40-0400 Body temperature 96.5 [degF] No Primary Care Physician [facility] 09-23-2024 15:40-0400 Diastolic blood pressure 106 mm[Hg] No Primary Care Physician [facility] 09-23-2024 15:40-0400 Heart rate 105 /min No Primary Care Physician [facility] 09-23-2024 15:40-0400 Respiratory rate 16 /min No Primary Care Physician [facility] 09-23-2024 15:40-0400 SaO2% (BldA) [Mass fraction] 100 % No Primary Care Physician [facility] 09-23-2024 15:40-0400 Systolic blood pressure 175 mm[Hg] No Primary Care Physician [facility] 09-23-2024 13:04-0400 Body height 160.02 cm No Primary Care Physician [facility] 09-23-2024 13:04-0400 Body mass index (BMI) [Ratio] 27.7 kg/m2 No Primary Care Physician [facility] 09-23-2024 13:04-0400 Body weight 71 kg No Primary Care Physician [facility] 05-23-2024 10:49-0500 Body mass index (BMI) [Ratio] 23.96 kg/m2 Anastasiia Joaquin MD Work Phone: [facility] 05-23-2024 10:49-0500 Body temperature 98.01 [degF] Anastasiia Joaquin MD Work Phone: [facility] 05-23-2024 10:49-0500 Body weight 63.32 kg Anastasiia Joaquin MD Work Phone: [facility] 05-23-2024 10:49-0500 Diastolic blood pressure 98 mm[Hg] Anastasiia Joaquin MD Work Phone: [facility] 05-23-2024 10:49-0500 Heart rate 99 /min Anastasiia Joaquin MD Work Phone: [facility] 05-23-2024 10:49-0500 Respiratory rate 18 /min Anastasiia Joaquin MD Work Phone: [facility] 05-23-2024 10:49-0500 SaO2% (BldA) [Mass fraction] 100 % Anastasiia Joaquin MD Work Phone: [facility] 05-23-2024 10:49-0500 Systolic blood pressure 170 mm[Hg] Anastasiia Joaquin MD Work Phone: [facility] 12-21-2022 18:24-0400 Diastolic blood pressure 97 mm[Hg] [facility] 12-21-2022 18:24-0400 Heart rate 124 /min [facility] 12-21-2022 18:24-0400 Respiratory rate 20 /min [facility] 12-21-2022 18:24-0400 SaO2% (BldA) [Mass fraction] 100 % [facility] 12-21-2022 18:24-0400 Systolic blood pressure 154 mm[Hg] [facility] 12-21-2022 17:01-0400 Body mass index (BMI) [Ratio] 26.1 kg/m2 [facility] 12-21-2022 17:01-0400 Body weight 66.8 kg [facility] 12-21-2022 16:37-0400 Body height 160.02 cm [facility] 12-21-2022 16:37-0400 Body temperature 97.9 [degF] [facility] 06-26-2022 11:29-0500 Body height 160.02 cm [facility] Work Phone: 06-26-2022 11:29-0500 Body mass index (BMI) [Ratio] 28.3 kg/m2 [facility] Work Phone: 06-26-2022 11:29-0500 Body temperature 98.2 [degF] [facility] Work Phone: 06-26-2022 11:29-0500 Body weight 72.7 kg [facility] Work Phone: 06-26-2022 11:29-0500 Diastolic blood pressure 98 mm[Hg] [facility] Work Phone: 06-26-2022 11:29-0500 Heart rate 125 /min [facility] Work Phone: 06-26-2022 11:29-0500 Respiratory rate 18 /min [facility] Work Phone: 06-26-2022 11:29-0500 SaO2% (BldA) [Mass fraction] 100 % [facility] Work Phone: 06-26-2022 11:29-0500 Systolic blood pressure 149 mm[Hg] [facility] Work Phone: 03-24-2017 06:39-0400 Body surface area Derived from formula 96.54 mL/min Pierce Pemberton MD [facility] Work Phone: 03-07-2017 11:21-0400 BMI (Body Mass Index) 30.04 kg/m2 Pierce Pemberton MD [facility] Work Phone: 03-07-2017 11:21-0400 Body Temperature 98.6 [degF] Pierce Pemberton MD [facility] Work Phone: 03-07-2017 11:21-0400 BP Diastolic 88 mm[Hg] Pierce Pemberton MD [facility] Work Phone: 03-07-2017 11:21-0400 BP Systolic 138 mm[Hg] Pierce Pemberton MD [facility] Work Phone: 03-07-2017 11:21-0400 BSA (Body Surface Area) 1.87 m2 Pierce Pemberton MD [facility] Work Phone: 03-07-2017 11:21-0400 Height 163.83 cm Pierce Pemberton MD [facility] Work Phone: 03-07-2017 11:21-0400 Respiratory [...] 15:39-0500 BP Diastolic 69 mm[Hg] Porsha Salas [facility] Work Phone: 07-12-2015 15:39-0500 BP Systolic 126 mm[Hg] Porsha Salas [facility] Work Phone: 07-12-2015 15:39-0500 BSA (Body Surface Area) 1.79 m2 Porshaedson Salas [facility] Work Phone: 07-12-2015 15:39-0500 Pulse (Heart Rate) 122 /min Porshaedson Steveer [facility] Work Phone: 07-12-2015 15:39-0500 Respiratory Rate 20 /min Porsha Salas [facility] Work Phone: 07-12-2015 15:39-0500 Weight 72.94 kg Porsha Salas [facility] Work Phone: 07-29-2014 15:07-0500 BP Diastolic 92 mm[Hg] Porshaedson Urbanmeglizabether [facility] Work Phone: 07-29-2014 15:07-0500 BP Systolic 130 mm[Hg] Porshaedson Steveer [facility] Work Phone: 07-14-2014 15:51-0500 BP Diastolic 87 mm[Hg] Porsha Schmegneger [facility] Work Phone: 07-14-2014 15:51-0500 BP Systolic 123 mm[Hg] Porsha Salas [facility] Work Phone: 03-14-2012 15:25-0400 Height 163.83 cm Porsha Salas [facility] Work Phone: Encounters Encounter Date Encounter Type Care Provider Facility Start: 05-05-2025 ambulatory Natalia Dmitri Facility:[facility] Start: 05-05-2025 ambulatory Mariam Murry [facility] Start: 05-05-2025 End: 05-05-2025 Evaluation and management of inpatient Mariam [place] Facility:[facility] Start: 09-24-2024 End: 09-24-2024 ambulatory Renetta Murillo ICE S[facility] Start: 09-24-2024 End: 09-24-2024 Patient encounter procedure Renetta Murillo ICE SCRAPER [facility] Comment on above: ED outreach (09/23/24 [facility] ) Start: 09-23-2024 End: 09-23-2024 Emergency department patient visit No Primary Care Physician -Emergency Department Work Phone: Start: 07-08-2024 End: 07-08-2024 [facility] Comment on above: Appointment Start: 06-02-2024 [...] 12-21-2022 End: 12-21-2022 Emergency department patient visit [facility]-Emergency Department Start: 07-12-2022 End: 07-12-2022 Nursing evaluation of patient and report Nurse Pnob [facility] Work Phone: OB/Gynecology Comment on above: Missed menses (Prima ry Dx) Start: 06-26-2022 End: 06-26-2022 [facility] Start: 12-28-2021 ambulatory Joey Bradshaw MD Work Phone: Internal Medicine [facility] [place] Start: 10-14-2021 ambulatory Kolby Fisher LPN [facility] Comment on above: PHMA/Care Gap Outrea ch Start: 08-01-2018 End: 08-01-2018 Patient encounter procedure [facility] Procedures Date Procedure Procedure Detail Performing Clinician [...] 64 ONE PNEUMOVAX PRIOR TO AGE 64 [facility] Comment on above: Postponed from 1995 (Postponed - N ot Clinically Indicated) Start: 07-02-2043 PNEUMOCOCCAL (1 - PCV) PNEUMOCOCCAL (1 - PCV) [facility] Comment on above: Postponed from 1985 (Postponed - N ot Clinically Indicated) Start: 07-02-2043 Pneumococcal vaccination Pneumococcal Vaccine (1 of 2 - PCV) [facility] Comment on above: Postponed from 1985 (Postponed - N ot Clinically Indicated) Postponed from 07/07 (Postponed - Not Clinically Indicated) Start: 05-23-2025 Annual PCP Team Chronic Disease Visit Annual PCP Team Chronic Disease Visit [facility] Start: 09-23-2024 [facility] Start: 09-02-2024 End: 09-02-2024 Patient encounter procedure 09/02/2024 10:00 AM EST Office Visit [facility] [address] [place], [place] [id number] Marciano Church DO [address] [place], [place] [id number] New patient [facility] Comment on above: New patient Start: 2024 Screening for malignant neoplasm of colon [facility] Start: 03-02-2024 Covid-19 Vaccine ( season) Covid-19 Vaccine ( season) [facility] Start: 03-02-2024 Influenza vaccination [facility] Start: 11-24-2023 Glaucoma screening Dilated Retinal Exam [facility] Start: 07-12-2022 End: 09-11-2022 Choriogonadotropin ( test) [Presence] in Urine HCG QUAL UR Lab Routine Missed menses Expected: 07/12/2022, Expires: 09/11/2022 [facility] Work Phone: Comment on above: Expected: 07/12/2022, Expires: 3 Start: 07-02-2022 DEPRESSION ASSESSMENT DEPRESSION ASSESSMENT [facility] Start: 06-26-2022 [facility] Work Phone: Start: 03-02-2022 Influenza vaccination [facility] Start: 12-27-2021 HPV TESTING HPV TESTING [facility] Start: 12-27-2021 PAP TESTING PAP TESTING [facility] Start: 12-27-2021 Screening for malignant neoplasm of cervix Cervical Cancer Screening [facility] Start: 10-18-2021 End: 12-18-2021 ALBUMIN/CREAT RATIO RND UR ALBUMIN/CREAT RATIO RND UR Lab Routine Type 2 diabetes mellitus with 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, unspecified whether continuous churn buttermaker insulin use (HCC) Expected: 10/18/2021, Expires: 12/18/2021 [facility] Work Phone: Comment on above: Expected: 10/18/2021, Expires: 2 Start: 10-18-2021 End: 12-18-2021 CBC W Auto Differential panel - Blood CBC + DIFF Lab Routine Type 2 diabetes mellitus with 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, unspecified whether longterm insulin use (HCC) Expected: 10/18/2021, Expires: 12/18/2021 [facility] Work Phone: Comment on above: Expected: 10/18/2021, Expires: 2 Start: 10-18-2021 End: 12-18-2021 Comprehensive metabolic 2000 panel - Serum or Plasma COMP METABOLIC PANEL Lab Routine Screening for hyperlipidemia Expected: 10/18/2021, Expires: 12/18/2021 [facility] Work Phone: Comment on above: Expected: 10/18/2021, Expires: 2 Start: 10-18-2021 End: 12-18-2021 Hemoglobin A1c/Hemoglobin.total in Blood HGB A1C Lab Routine Type 2 diabetes mellitus with 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, unspecified whether longterm insulin use (HCC) Expected: 10/18/2021, Expires: 12/18/2021 [facility] Work Phone: Comment on above: Expected: 10/18/2021, Expires: 2 Start: 10-18-2021 End: 12-18-2021 LIPID PANEL BASIC LIPID PANEL BASIC Lab Routine Screening for hyperlipidemia Expected: 10/18/2021, Expires: 12/18/2021 [facility] Work Phone: Comment on above: Expected: 10/18/2021, Expires: 2 Start: 07-14-2020 Mammography MAMMOGRAM [facility] Start: 07-14-2020 Screening for malignant neoplasm of breast Mammogram Screening [facility] Start: 07-10-2020 ANNUAL PCP TEAM CHRONIC DISEASE VISIT ANNUAL PCP TEAM CHRONIC DISEASE VISIT [facility] Start: 07-10-2020 Hepatitis B screening URINE ALBUMIN:CREATININE RATIO [facility] Start: 06-23-2020 Hepatitis B surface antibody level LDL CHOLESTEROL [facility] Start: 02-08-2020 3 comp foot exam completed DIABETIC FOOT EXAM [facility] Start: 02-08-2020 Diabetic foot examination Diabetic Foot Exam [facility] Start: 09-22-2019 Hemoglobin A1c measurement HbA1C [facility] Start: 09-22-2019 Hemoglobin A1c/Hemoglobin.total in Blood HBA1C [facility] Start: 04-10-2018 Hepatitis C antibody, confirmatory test DILATED RETINAL EXAM [facility] Start: 12-14-2017 Adult depression screening assessment DEPRESSION SCREENING [facility] Start: 03-07-2017 End: 04-23-2017 Follow Up Appt Other Follow Up Appt Other [facility] Work Phone: Start: 02-19-2017 End: 02-19-2017 Appointment Appointment [facility] Work Phone: Start: 07-12-2015 End: 10-13-2015 Follow Up Appt Other Follow Up Appt Other [facility] Work Phone: Start: 07-12-2015 End: 10-13-2015 Follow Up Appt Other [facility] Work Phone: Start: 07-29-2014 End: 08-05-2014 Follow up Appt 1 week Follow up Appt 1 week [facility] Work Phone: Start: 07-29-2014 End: 08-05-2014 Follow up Appt 1 week Follow up Appt 1 week [facility] Work Phone: Start: 07-14-2014 End: 07-20-2014 Follow Up Appt Other Follow Up Appt Other [facility] Work Phone: Start: 07-14-2014 End: 07-20-2014 Follow Up Appt Other Follow Up Appt Other [facility] Work Phone: Start: 08-26-2013 End: 08-27-2013 Follow Up Appt Other Follow Up Appt Other [facility] Work Phone: Start: 08-26-2013 End: 08-27-2013 Follow Up Appt Other Follow Up Appt Other [facility] Work Phone: Start: 1998 HEPATITIS B (1 of 3 - Risk 3-dose series) HEPATITIS B (1 of 3 - Risk 3-dose series) [facility] Start: 1998 Hepatitis B Vaccine (1 of 3 - 19+ 3-dose series) Hepatitis B Vaccine (1 of 3 - 19+ 3-dose series) [facility] Start: 1998 Urine microalbumin profile [facility] Start: 1997 Anxiety Screening Anxiety Screening [facility] Start: 1997 Depression Screening Depression Screening [facility] Start: 1997 HEPATITIS C SCREENING HEPATITIS C SCREENING [facility] Start: 1997 Hepatitis C screening Hepatitis C Screening [facility] Start: 1997 HIV SCREENING HIV SCREENING [facility] Start: 1997 HIV screening HIV Screening [facility] Start: 1984 COVID-19 VACCINE (1) COVID-19 VACCINE (1) [facility] Start: 01-05-1980 COVID-19 VACCINE (#1) COVID-19 VACCINE (#1) [facility] Start: 1979 HEPATITIS B (1 of 3 - 3-dose series) HEPATITIS B (1 of 3 - 3-dose series) [facility] Patient Education [facility] Work Phone: Patient referral [facility] Work Phone: End: 01-27-2023 Screening mammography bi 2-view breast inc cad KRISTI SCREENING Radiology Routine Encounter for screening mammogram for breast cancer 1 Occurrences starting 12/28/2021 until 01/27/2023 [facility] Work Phone: Comment on above: 1 Occurrences starting 12/28/2021 until 01/27/2023 Urine culture [facility] Immunizations Immunization Date Immunization Notes Care Provider Rhina lino 07-23-2018 influenza virus vacc ine, unspecified formulation Anastasiia Joaquin MD Work Phone: [facility] 04-15-2013 influenza virus vacc ine, unspecified formulation Kolby Fisher LPN [facility] 12-14-2010 tetanus toxoid, adsorbed Kolby manrique [facility] Payers Date Payer Category Payer Self-pay [id number] 2024 Unknown [id number] 2023 Private Health Insurance JASVIR WEBBX [id number] 2023 Unknown JASVIR TAY HI X [id number] 2023-Present [phone] [address] [address] [place] [address] HMO [id number] 2012 Unknown [employer] [id number] 2012 Unknown [id number] 2012 Medicaid [employer] [id number] 2012-Present [phone] [address] [place] [address] Medicaid [id number] 2012 Medicaid [id number] Unknown [id number] Unknown [id number] Unknown [id number] Unknown [id number] Unknown [id number] Social History Date Type Detail Facility Start: 07-14-2019 End: 09-23-2024 Tobacco smoking status MDIS Smokes tobacco daily [facility] History of tobacco use Cigar Smoker [facility] Start: 12-29-2019 End: 05-23-2024 Alcohol intake Current non-drinker of alcohol (finding) [facility] Start: 03-13-2019 End: 05-23-2024 Tobacco Comment 1 cigar daily [facility] Start: 1980 Sex Assigned At Not on file [facility] Start: 10-09-2021 End: 10-19-2021 Exposure to SARS-CoV-2 (event) Not sure [facility] Start: 06-26-2022 End: 12-21-2022 Tobacco smoking status NHIS Unknown if ever smoked [facility] Start: 12-27-2020 Occasional [facility] Start: 12-27-2020 Marijuana [facility] Start: 12-27-2020 Cigarettes [facility] Start: 1980 Sex Assigned At Female W [facility] History of tobacco use Cigarette Smoker C [facility] Work Phone: Start: 07-14-2019 End: 05-23-2024 Cigarettes smoked current (pack per day) - Reported 0.3 [facility] Start: 07-14-2019 End: 05-23-2024 Tobacco use and exposure Smokeless tobacco non-user [facility] Work Phone: Start: 05-23-2024 Tobacco use panel [facility] Adult Depression Screening Assessment 4 [facility] Start: 10-20-2014 Spouse/ Significant Other Spouse/ Significant Other [facility] Start: 09-23-2024 Sex Female (finding) [facility] NEGATED: Highlighted row [facility] Medical Equipment Procedure Code Equipment Code Equipment Original Text Equipment Identifier Dates [id number], [id number], [id number] Start: 10-25-2017 Comment on above: Test blood sugar(s) 4 times daily. Dx: Type 2 DM - Uncontrolled E11.65 Insulin: Yes Test blood sugar(s) 4 times daily. Dx: Type 2 DM - Controlled E11.9 Insulin: Yes Functional Status Date Assessment Result Facility 09-24-2014 Are you deaf, or do you have serious difficulty hearing No 09/24/2014 2:04 PM Jolie Lawrence Cma No [facility] 09-24-2014 Are you blind, or do you have serious difficulty seeing, even when wearing glasses No 09/24/2014 2:04 PM Jolie Lawrence Cma No [facility] 09-24-2014 Do you have serious difficulty walking or climbing stairs No 09/24/2014 2:04 PM EDT Jolie Dennis Cma No [facility] 09-24-2014 Do you have difficul ty dressing or bathing No 09/24/2014 2:04 PM EDT Jolie Dennis Cma No [facility] 09-24-2014 Because of a physica l, mental, or emotional condition, do you have difficulty doing errands alone such as visiting a physician's office or shopping No 09/24/2014 2:04 PM EDT Jolie Dennis Cma No [facility] Mental Status Date Assessment Result Facility 06-26-2022 Cognitive function Level Of Cons ciousness Awake;Alert;Appropriate;Fol lows Commands [facility] Work Phone: 09-24-2014 Because of a physica l, mental, or emotional condition, do you have serious difficulty concentrating, remembering, or making decisions No 09/24/2014 2:04 PM EDT Jolie Dennis Cma No [facility] Clinical Notes 05-01-2013 to 04-13-2025 Renetta Murillo LPN - 09/24/2024 9:22 AM EDT Note Date & Type Note Facility 04-13-2025 Note HNO ID: [id number] Author: CHERYL MUNOZ RN Service: ? Author [...] Munoz RN April 13, 2025 12:59 PM [facility] 04-13-2025 Note Patient Outreach ([facility]) TALATMINDY ([id number]) 1980 F Date Time Provider Department 04/13/25 CHERYL MUNOZ [facility] During your visit today, we recorded [...] glargine LANTUS 100 UNIT/ML SOLN INSULIN GLARGINE [id number] Pierce Pemberton MD 08-26-2013 [facility] ([id number]) - L. acidophilus-L. rhamnosus 15 billion cell [...] Cyst with Abscess [L05.01] 03/15/2010 NO SHOW [[id number]] 05/01/2013 07/06/2014 Brachial plexus neuropathy [G54.0] 06/04/2013 Neuropathic pain [M79.2] 06/04/2013 Type 2 diabetes mellitus with 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 *10/23/2013 Hidradenitis suppurativa [L73.2] 10/26/2013 HPV test positive [[id number]] 07/16/2014 Tobacco use disorder [F17.200] 12/14/2016 History of substance abuse [F19.11] 07/23/2018 Pain in joint of left shoulder region [M25.512] 09/05/2018 Abnormal mammogram [R92.8] 10/14/2019 Encounter Status:Closed by CHERYL MUNOZ on 04/13/25 [facility] 09-25-2024 Note HNO ID: [id number] Author: ANASTASIIA JOAQUIN MD Service: ? Author Type: Resident Type: Progress Notes Filed: 09/25/2024 13:17 Note Text: Noted, thanks. [facility] 09-25-2024 Note HNO ID: [id number] Author: SUSHMA QUIGLEY LPN Service: ? Author Type: LICENSED NURSE Type: Progress Notes Filed: 09/25/2024 11:26 Note Text: ED Follow Up: Patient discharged from [facility] ED on 09/23/24. Attempted to call patient, no answer.Unable to leave a message due to message comes on stating this number has 'call restrictions'. This is the second attempt to contact this patient for an ED Outreach and not being able to reach this patient. Sushma Quigley LPN [facility] 09-24-2024 Note HNO ID: [id number] Author: RENETTA MURILLO LPN Service: ? Author Type: LICENSED NURSE Type: Progress Notes Filed: 09/24/2024 09:24 Note Text: ED Follow Up: Patient discharged from [facility] ED on 09/23/24. Attempted to call patient, no answer.Unable to leave a message due to message comes on stating this number has call restrictions and call can not be completed. Renetta Murillo LPN [facility] 09-24-2024 History of Present illness Narrative ED Follow Up: Patient discharged from [facility] ED on 09/23/24. Attempted to call patient, no answer.Unable to leave a message due to message comes on stating this number has call restrictions and call can not be completed. Renetta Murillo LPN documented in this encounter [facility] 09-24-2024 Note Patient Outreach ([facility]) MINDY FAULKNER ([id number]) 1980 F Date Time Provider Department 09/24/24 RENETTA MURILLO [facility] During your visit today, we recorded the following information about you: Renetta Murillo LPN 09/24/2024 9:24 AM Signed ED Follow Up: Patient discharged from [facility] ED on 09/23/24. Attempted to call patient, no answer.Unable to leave a message due to message comes on stating this number has call restrictions and call can not be completed. BRE Darden Abbigail, LPN 09/25/2024 11:26 AM Signed ED Follow Up: Patient discharged from [facility] ED on 09/23/24. Attempted to call patient, [...] for Visit: ED outreach [Other] Cmt: 09/23/24 [place] ER Prescriptions as of 09/25/2024 - ibuprofen [...] glargine LANTUS 100 UNIT/ML SOLN INSULIN GLARGINE [id number] Pierce Pemberton MD 08-26-2013 [place] [facility] ([id number]) - L. acidophilus-L. rhamnosus 15 billion cell [...] Cyst with Abscess [L05.01] 03/15/2010 NO SHOW [[id number]] 05/01/2013 07/06/2014 Brachial plexus neuropathy [G54.0] 06/04/2013 Neuropathic pain [M79.2] 06/04/2013 Type 2 diabetes mellitus with 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 *10/23/2013 Hidradenitis suppurativa [L73.2] 10/26/2013 HPV test positive [KWO7537] 07/16/2014 Tobacco use disorder [F17.200] 12/14/2016 History of substance abuse [F19.11] 07/23/2018 Pain in joint of left shoulder region [M25.512] 09/05/2018 Abnormal mammogram [R92.8] 10/14/2019 Encounter Status:Closed by RENETTA MURILLO on 09/24/24 [facility] 09-23-2024 Discharge summary [facility] 09-23-2024 Discharge summary Note Date/Time September 23, 2024 3:55pm [facility] Medical Records Department [address] [place] [address] Emergency Department Summary 09/23/24 MR#: [id number] Acct: [id number] Name: MINDY FAULKNER Rep #:[id number] : [...] not see a primary care physician. [facility] Medical History Wears dentures Wears glasses Anxiety [...] % (Auto) 53.1 Lymph % (Auto) 35.8 [place] % (Auto) 6.8 Eos % (Auto) 2.9 [...] Clarity Cloudy Urine pH 6.5 Ur Specific [place] 1.015 Urine Protein 500 H Urine Glucose [...] Referrals: Yariel Cruz MD [Med Staff - Associate Director Financial Aid] - 3-5 Days Care Physician,No Primary [Primary Care Provider] - Activity Restrictions/Additional Instructions: Keep your appointment with primary care physician. Print Language: Albanian Disposition Disposition: Home, Self Care What to do if you have Problems For any increased pain, shortness of breath, bleeding, nausea or vomiting, chestpain, or any unexpected problems, contact your Primary Care Provider. Call [facility] ([phone]) or report to the closest Emergency Room. Call 911 if necessary. 09/23/24 9547 <Electronically signed by Jose Garza DO> Cosigner Signature (if applicable): CC: No Primary Care Physician ~ Signed [facility] Work Phone: 1(769) 411-478303-25-2025 NotePatient Outreach ([facility]) MINDY FAULKNER ([id number]) 1980 F Date Time Provider Department 09/23/24 RIYA SILVERIO [facility] During your visit today, we recorded [...] breast cancer [Z12.31] Order(s):KRISTI SCREENING W NEGRA [[id number]] Order #: [id number] FUTURE Prescriptions as of 10/24/2024 - ibuprofen [...] glargine LANTUS 100 UNIT/ML SOLN INSULIN GLARGINE [id number] Pierce Pemberton MD 08-26-2013 [place] [facility] ([id number]) - L. acidophilus-L. rhamnosus 15 billion cell [...] Cyst with Abscess [L05.01] 03/15/2010 NO SHOW [[id number]] 05/01/2013 07/06/2014 Brachial plexus neuropathy [G54.0] 06/04/2013 Neuropathic pain [M79.2] 06/04/2013 Type 2 diabetes mellitus with 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 *10/23/2013 Hidradenitis suppurativa [L73.2] 10/26/2013 HPV test positive [HPP8001] 07/16/2014 Tobacco use disorder [F17.200] 12/14/2016 History of substance abuse [F19.11] 07/23/2018 Pain in joint of left shoulder region [M25.512] 09/05/2018 Abnormal mammogram [R92.8] 10/14/2019 Encounter Status:Closed by DEMOND ASCENCIO on 10/24/24[facility] 07-08-2024 Telephone encounter Note* Telephone Encounter - Mali Mercado - 07/08/2024 9:14 AM EST Patient called to make 1st appt in office I gave her directions etc Mali Mercado July 08, 2024 9:14 AM [facility]01-07-2025 Miscellaneous Notes* Telephone Encounter - Mali Mercado - 07/08/2024 9:14 AM EST Patient called to make 1st appt in office I gave her directions etc Mali Mercado July 08, 2024 9:14 AM documented in this encounterA[facility]c [facility]12-02-2024 NoteHNO ID: [id number] Author: CRISTINA ESPARZA LSW Service: ? Author Type: Yeast Washer Type: Progress Notes Filed: 06/02/2024 15:42 Note Text: Outcall to patient as per referral below: No response. Left voice message. As patient resides in [place] would provide local agencies: [employer], [address] [address] [employer]: [facility] [address] [place] [address] Patient: Mindy Faulkner ([id number]) Sex: Female : 1980 [facility] ID Number: [id number] [place] ID Number: [id number] [facility]: [id number] [facility] [place] [place] System: [id number] Address: [address] [place] [address] CONSULT TO LADLE OPERATOR ( IMCA/CFM ONLY) Priority: Routine Class: Jarrett [...] Date:05/27/2024 Ordering User:ANASTASIIA JOAQUIN Authorizing Provider:Johann Montiel Department:[facility] ACC CFM Location: [facility] Provider ID: [id number] NPI Number: [id number] Priority: Routine Referred by: None Referral type: Transition of Care Referral reason: PCP Requested Referral To Location/POS: None To Specialty: None Visits requested: 1 Expiration Date: 08/25/24 Referred to: Not Available Electronically Signed by: ANASTASIIA JOAQUIN Telephone 05/27/[address] [facility] Anastasiia Joaquin MD Family Medicine Mood disorder (HCC) Dx All Conversations (Newest Message First)View All Conversations on this Encounter June 02, 2024 06/02/24 3:18 PM You routed this conversation to Anastasiia Joaquin MD May 27, 2024 05/27/24 9:17 AM Anastasiia Joaquin MD routed this conversation to [facility] Social Work Referral Pool Anastasiia Joaquin [...] is also interested in speaking with our high school social studies teacher so I also let her know I would place a consult for [facility]. Provided number for suicide/crisis hotline 988. Patient has no questions. Anastasiia Joaquin MD 05/27/2024 9:13 [facility]12-02-2024 History of Present illness Narrative* Cristina Esparza, MORTICIAN INVESTIGATOR - 06/02/2024 3:20 PM EST Images from the original note were not included. Outcall to patient as per referral below: No response. Left voice message. As patient resides in [place] would provide local agencies: [employer] [address] [place] [address] [employer]: Referral [address] [address] Patient: Mindy Faulkner ([id number]) Sex: Female : 1980 [facility] ID Number: [id number] [facility] ID Number: [id number] [facility]: [id number] [facility] [place] System: [id number] Address: [address] [place] [address] CONSULT TO LADLE OPERATOR ( IMCA/CFM ONLY) Priority: Routine Class: Jarrett [...] Date:05/27/2024 Ordering User:ANASTASIIA JOAQUIN Authorizing Provider:Johann Montiel Department:[facility] ACC CFM Location: [facility] Provider ID: [id number] NPI Number: [id number] Priority: Routine Referred by: None Referral type: Transition of Care Referral reason: PCP Requested Referral To Location/POS: None To Specialty: None Visits requested: 1 Expiration Date: 08/25/24 Referred to: Not Available Electronically Signed by: ANASTASIIA JOAQUIN Telephone 05/27/[address] [facility] Anastasiia Joaquin MD Family Medicine Mood disorder (HCC) Dx All Conversations (Newest Message First)View All Conversations on this Encounter June 02, 2024 CG 06/02/24 3:18 PM You routed this conversation to Anastasiia Joaquin MD May 27, 2024 NEL 05/27/24 9:17 AM Anastasiia Joaquin MD routed this conversation to [facility] Social Work Referral Pool Anastasiia Joaquin [...] is also interested in speaking with our high school social studies teacher so I also let her know I would place a consult for CFM SW. Provided number for suicide/crisis hotline 988. Patient has no questions. Anastasiia Joaquin MD 05/27/2024 9:13 AM documented in this encounterAcmc Healthcare [facility]11-26-2024 Telephone encounter Note * Telephone Encounter - [...] is also interested in speaking with our high school social studies teacher so I also let her know I would place a consult for CFM SW. Provided number for suicide/crisis hotline 988. Patient has no questions. Anastasiia Joaquin MD 05/27/2024 9:13 AM [facility]11-26-2024 Miscellaneous Notes* Telephone Encounter - Anastasiia Joaquin [...] is also interested in speaking with our high school social studies teacher so I also let her know I would place a consult for [facility]. Provided number for suicide/crisis hotline 988. Patient has no questions. Anastasiia Joaquin MD 05/27/2024 9:13 AM documented in this encounterAcmc Healthcare System [facility]11-24-2024 NoteHNO ID: [id number] Author: JOHANN MONTIEL MD Service: ? Author [...] resident's note for further details. Johann Montiel, [facility]11-22-2024 Instructions* Patient Instructions* Anastasiia Joaquin MD [...] or provider preference: Central/Multiple Locations: [facility]: 9[address] [facility] [phone] Duglas Roland: [address] Michelle Bañuelos [place] - [phone] [facility].: [address] [facility] - [phone] [facility]: 7800 [facility] - [phone] [place] [facility]: 4500 [facility] - [phone] (Medicaid only) [facility] Center for Geriatric Medicine: Multiple Locations - [phone] [facility] Department of Psychiatry & Psychology at [phone] (select Option 1) or [phone] (select Option 1) Connections: Multiple Locations - [phone] (Medicaid only) Fabrice Penn [facility] Services [facility] - Multiple Locations - [phone] (Medicaid only) [facility], [facility].: Multiple Locations - [phone] Psychological and Behavioral Consultants: Multiple Locations - [phone] Recovery Resources: Multiple Locations - [phone] [facility] Locations: [facility]: [address] [facility] [place] - [phone] [facility]: [address] [facility]yn. [place] - [phone] Juanis Webb PhD and Associates: [address] [facility] - [phone] [place] [id number] [facility] [address] - [phone] Em Calloway MD: [address] [facility] - [phone] [facility]. [address] , [place] - [phone] [place]: 992 [facility] - [phone] On [facility] Counseling/Growth Center, [address] [place] [address] - [phone] [place] Locations: Lynn Davis MD and Associates Inc: [address] [address], [place] - [phone] Juanis Webb PhD and Associates: [address] [facility] - [phone] [facility] Family Services: [address] [facility] - [phone] [facility], Inc.: [address] [facility] - [phone] [facility], [address], [place] - [phone] [facility], [address], [place] - [phone] [facility]: [address] [address] [place] - [phone] [facility] Locations: [facility] Psychological and Counseling Services of [facility] L [facility] -[phone] [facility] L Jannette Enrique, [facility] - [phone] [facility] Psychiatry: [address], [place] - [phone] [facility]: [address] [facility], [facility] - [phone] [facility] - 256 [facility] - [phone] [place] Locations: [facility] - Wiley West MD Psychiatry, Sleep Medicine - 2420 [facility] [phone] or [phone] Fani Johnson MD - 2422 [facility] [phone] Psychological and Behavioral Consultants - NIMO Ashford, DCSW - [address] [phone] Community [facility] Centers - 2801 [facility] [phone] [facility] (NO Commercial Insurance accepted) - [address] [place] [phone] [facility] - Kal Schulz, PCC, LIDC - [address] [place] [phone] Karmen Ruiz PROGRAM EVALUATION CONSULTANT - 2408 [facility] [phone] June Mart, LOCATED WITHIN [facility] - [address] [phone] All Ramos, PhD - [address] [phone] Lali Sampson, PROGRAM EVALUATION CONSULTANT - 850 [facility] [phone] Faviola Victoria, PCCS, LICDC (No Medicare, [facility]) - [address] [phone] Clarence Boyle, [facility] - [address], [place] - [phone] Austin Randhawa, [address] [phone] For additional resources and information please call or review the website: [email or web address].[address] [place] [address].org/ If you are feeling suicidal, please call [employer], , or the [employer] Suicide Hotline , Call 792, or go to your nearest emergency room documented in this encounterAcmc Healthcare System [facility]igh11-22-2024 NoteHNO ID: [id number] Author: ANASTASIIA JOAQUIN MD Service: ? Author Type: Resident Type: Progress Notes Filed: 05/23/2024 19:33 Note Text: Anastasiia Joaquin MD [facility] Family Medicine [address] [place] [address] Associate Director Financial Aid Center / [address] [place], [place] [address] Visit Date: May 23, 2024 Name: Mindy Faulkner Date of : 1980 MRN/E #: [id number] Chief Complaint: Patient presents with: Establish Care: RT side arm, breast, and leg w/o injury x 1 month Patient has hidradenitis thinks pain is associated with disorder Subjective Mindy Faulkner is a 43 year old female here for a new patient visit to establish care and also for mood concerns Previously received care at [facility] 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 Hidradenitis [...] she would never harm herself -formerly saw [facility] - Dr. Corey, on medicine that altered [...] glargine LANTUS 100 UNIT/ML SOLN INSULIN GLARGINE [id number] Pierce Pemberton MD 08-26-2013 [place] [facility] ([id number]) (Patient not taking: Reported on 05/23/2024) L. [...] tablet by mouth t (more content not included)...[facility]11-22-2024 History of Present illness Narrative* Anastasiia Joaquin MD - 05/23/2024 11:05 AM EST Images from the original note were not included. Anastasiia Joaquin MD [facility] 1 [facility] Associate Director Financial Aid Center / [address] [place] [address] Visit Date: May 23, 2024 Name: Mindy Faulkner Date of : 1980 MRN/E #: [id number] Chief Complaint: Patient presents with: Establish Care: RT side arm, breast, and leg w/o injury x 1 month Patient has hidradenitis thinks pain is associated with disorder Subjective Mindy Faulkner is a 43 year old female here for a new patient visit to establish care and also for mood concerns Previously received care at [facility] 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 Hidradenitis [...] she would never harm herself -formerly saw [facility] - Dr. Corey, on medicine that altered [...] glargine LANTUS 100 UNIT/ML SOLN INSULIN GLARGINE [id number] Pierce Pemberton MD 08-26-2013 [place] [facility] ([id number]) (Patient not taking: Reported on 05/23/2024) L. 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 Anastasiia Joaquin MD Family Medicine, PGY-I [facility] [place] Date: May 23, 2024 Time: 6:56 PM documented in this encounterAcmc Healthcare [facility]01-11-2023 History of Present illness Narrative* Evette Rivera [...] 2 weeks.Evette Rivera RN documented in this encounterAcmc Healthcare System Glen[facility]igh12-26-2022 Hospital Discharge instructions Additional Instructions Apply ice to the lower back 6-10 times a day for the next 3 to 5 days. Avoid activity that causes you increased painWMadison Health Work Phone: [phone] History of Present illness Narrative* Janeth Low [...] Care Gap or Scheduling/Wellness visits Payer: Payor: [facility] MEDICAID / Plan: [facility] MEDICAID / Product Type: Medicaid / [...] 14, 2021 4:24 PM documented in this encounterAcmc Healthcare System [facility]igh10-31-2013 History of Past illness Narrative* Problem Noted Date Resolved Date NO SHOW 05/01/2013 07/06/2014 documented as of this encounter (statuses as of 10/26/2021) [facility] History of Past illness Narrative* Problem Noted Date Resolved Date NO SHOW 05/01/2013 07/06/2014 documented as of this encounter (statuses as of 01/02/2022) [facility] History of Past illness Narrative* Problem Noted Date Resolved Date NO SHOW 05/01/2013 07/06/2014 documented as of this encounter (statuses as of 07/12/2022) [facility] note* Diagnosis Type 2 diabetes mellitus with 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, unspecified whether longterm insulin use (HCC)- Primary Screening for hyperlipidemia Screening for lipoid disorders documented in this encounter [facility] note* Diagnosis Encounter for screening mammogram for breast cancer documented in this encounter [facility] noteNo assessment information availableWMadison Health Work Phone: Evaluation note* Diagnosis Missed menses- Primary Absence of menstruation documented in this encounter [facility] note* Diagnosis Mood disorder (HCC)- Primary Unspecified episodic mood disorder Elevated blood pressure reading without diagnosis of hypertension documented in this encounter [facility] note* Diagnosis Mood disorder (HCC)- Primary Unspecified episodic mood disorder documented in this encounter [facility] note* Diagnosis Needs assistance with community resources- Primary documented in this encounter [facility] Discharge instructions Additional Instructions Keep your appointment with primary care physician.[facility] Work Phone: Reason for referral (narrative)* Diagnostic Procedure Only (Routine) - Pending Review Specialty Diagnoses / Procedures Referred By Sravani brenner Referred To Contact [facility] Diagnoses Encounter for screening mammogram for breast cancer Procedures KRISTI SCREENING SCREENING MAMMOGRAPHY BI 2-VIEW BREAST INC CAD Joey Bradshaw MD [address] [place] [address] [facility] [place] [address] Referral ID Status Reason Start Date Expiration Date Visits Requested Visits Authorized [id number] Pending Review Auto-Generat ed Referral 12/28/2021 01/27/2023 1 1 [facility] for referral (narrative)No reason for referral information availableWMadison Health Work Phone: Summary Purpose Family History No Family History Records Found Relationship Condition Age at Onset Recorded Date/T ivanan Not Specified Diabetes mellitus Unknown Advance Directives No Advanced Directives Records FoundDocuments on File Type Date Recorded Patient Newsagent Expl anation Advance Directive(s) 03/20/2019 9:08 AM Advance Directive(s) 08/01/2018 8:56 AM Documents on File Type Date Recorded Patient Newsagent Expl anation Advance Directive(s) 03/20/2019 9:08 AM Advance Directive(s) 08/01/2018 8:56 AM Advance Directive Response Recorded Date/ Time Advance Directives No May 10:47pm Living Will No June 26, 2 022 1:04pm Power of Video Control Engineer No June 26, 2022 1:04pm Advance Directive Response Recorded Date/ Time Advance Directives No May 11:47pm Living Will No December 21, 2022 4:55pm Power of Video Control Engineer No December 21 4:55pm Advance Directive Response Recorded Date/ Time Living Will No September 23, 2024 1:18pm Do you have a Healthcare Power of Video Control Engineer? No September 23, 2024 1:18pm Advance Directives No May 11:47pm Chief Complaint and Reason for Visit Chief Complaint GENERAL Chief Complaint LOWER EXTREMITY Chief Complaint Admit Date SPASMS September 23, 2024 1:0 4pm Reason for Referral Specialty Diagnoses / Procedures Referred By Contac t Referred To Contact Diagnoses Mood disorder (HCC) Procedures CONSULT TO PRIMARY CARE BEHAVIORAL HEALTH ADULT OFFICE/OUTPATIENT [facility] 60 MINUTES Russell Ortega MD [address] [place] [address] Referral ID Status Reason Start Date Expiration Date Visits Requested Visits Authorized [id number] Pending Review PCP Requested Referral 4 08/21/2024 1 1 Specialty Diagnoses / Procedures Referred By Contac t Referred To Contact Diagnoses Mood disorder (HCC) Procedures CONSULT TO LADLE OPERATOR (AG IMCA/CFM ONLY) Johann Montiel MD [address] [place] [address] Referral ID Status Reason Start Date Expiration Date Visits Requested Visits Authorized [id number] Ref Not Required PCP Requested Referral 4 08/25/2024 1 1 Additional Source Comments INFORMATION SOURCE (unrecogn ized section and content) DATE CREATED AUTHOR 08/19/2018 [facility] DATE CREATED AUTHOR AUTHOR'S ORGANIZ ATION 07/14/2024 [facility] DATE CREATED AUTHOR AUTHOR'S ORGANIZ ATION 04/14/2025 [facility] DATE CREATED AUTHOR AUTHOR'S ORGANIZ ATION 05/13/2025 [facility] Source Comments (unrecognize d section and content) In the event this informatio n is protected by the Federal Confidentiality of Alcohol and Drug Abuse Patient Records regulations: The Federal rules restrict any use of the information to criminally investigate or prosecute any alcohol or drug abuse patient.[facility] the event this information is protected by the Federal Confidentiality of Alcohol and Drug Abuse Patient Records regulations: The Federal rules restrict any use of the information to criminally investigate or prosecute any alcohol or drug abuse patient.[facility] the event this information is protected by the Federal Confidentiality of Alcohol and Drug Abuse Patient Records regulations: The Federal rules restrict any use of the information to criminally investigate or prosecute any alcohol or drug abuse patient.[facility] the event this information is protected by the Federal Confidentiality of Alcohol and Drug Abuse Patient Records regulations: The Federal rules restrict any use of the information to criminally investigate or prosecute any alcohol or drug abuse patient.[facility] the event this information is protected by the Federal Confidentiality of Alcohol and Drug Abuse Patient Records regulations: The Federal rules restrict any use of the information to criminally investigate or prosecute any alcohol or drug abuse patient.[facility] the event this information is protected by the Federal Confidentiality of Alcohol and Drug Abuse Patient Records regulations: The Federal rules restrict any use of the information to criminally investigate or prosecute any alcohol or drug abuse patient.[facility] the event this information is protected by the Federal Confidentiality of Alcohol and Drug Abuse Patient Records regulations: The Federal rules restrict any use of the information to criminally investigate or prosecute any alcohol or drug abuse patient.[facility] the event this information is protected by the Federal Confidentiality of Alcohol and Drug Abuse Patient Records regulations: The Federal rules restrict any use of the information to criminally investigate or prosecute any alcohol or drug abuse patient.[facility] Reason for Visit (unrecogniz ed section and content) Reason Onset Date Comments PHMA/Care Gap Outreach 10/14/2021 Reason Comments requests test Reason Comments Establish Care RT side arm, breast, and leg w/o injury x 1 month Patient has hidradenitis thinks pain is associated with disorder Reason Comments Appointment Reason Onset Date Comments ED outreach 09/24/2024 09/23/24 [place] Care Teams (unrecognized sec tion and content) Side Laster Staple Relationship Specialty Start Date End Date Joey Bradshaw MD [address] [place], [place] [phone] PCP - General Family Practice 09/24/14 Side Laster Staple Relationship Specialty Start Date End Date Joey Bradshaw MD [address] [place], [place] [phone] PCP - General Family Practice 09/24/14 Side Laster Staple Relationship Specialty Start Date End Date Joey Bradshaw MD [address] [place], [place] [id number] PCP - General Family Medicine 09/24/14 Team Status: Active Member Role Status Dates Dr. Joey Bradshaw MD Family Provider Active Dr. Joey Bradshaw MD Primary Care Provider Active Team Status: Inactive Member Role Status Dates Dr. Joey Bradshaw MD Primary Care Provider Active Dr. Olegario Hastings MD Emergency Provider Active Side Laster Staple Relationship Specialty Start Date End Date Riya Silverio DO [address] [place], [place] [id number] PCP - General Family Medicine 05/23/24 nAastasiia Joaquin MD [address] [place], [place] [phone] PCP Resident Family Medicine 05/23/24 Side Laster Staple Relationship Specialty Start Date End Date Riya Silverio DO [address] [place], [place] [phone] PCP - General Family Medicine 05/23/24 Anastasiia Joaquin MD [address] [place] [address] PCP Resident Family Medicine 05/23/24 Side Laster Staple Relationship Specialty Start Date End Date Riya Silverio DO [address] [place] [address] PCP - General Family Medicine 05/23/24 Anastasiia Joaquin MD [address] [place] [address] PCP Resident Family Medicine 05/23/24 Side Laster Staple Relationship Specialty Start Date End Date Riya Silverio DO [address] [place] [address] PCP - General Family Medicine 05/23/24 Anastasiia Joaquin MD [address] [place] [address] PCP Resident Family Medicine 05/23/24 Side Laster Staple Relationship Specialty Start Date End Date Riya Silverio DO [address] [place], [place] [id number] PCP - General Family Medicine 05/23/24 Anastasiia Joaquin MD [address] [place] [address] PCP Resident Family Medicine 05/23/24 Team Status: [...] BE BASED ON THE PRIMARY CLINICAL RECORDS. [employer] provides no warranty or guarantee of the accuracy or completeness of information in this document.
[2025-05-20 03:27] LABS: CPK Total, Creatine Kinase 518 U/L (24-195)
[2025-05-20 03:28] LABS: Troponin T High Sens 2 HR 224 ng/L (<=14)
[2025-05-20] MEDS: Bumetanide 25 MG in CONTAINER,EMPTY 1 BAG CONT INF (04:13)
[2025-05-20 06:48] LABS: Troponin T High Sensitivity 220 ng/L (<=14)
[2025-05-20] MEDS: Heparin Injection (Vial) 5,000 UNIT/ML VIAL 5000 UNIT SC ×3 (07:11→22:08)
--- NOTE | 2025-05-20 07:29 | CON.PCM.CA_ITS ---
Assessment & Plan Assessment/Plan (1) Acute HFrEF (heart failure with reduced ejection fraction): PLAN: Patient presents with an acute exacerbation of congestive heart failure. She was known to have reduced left ventricular systolic function on the last echocardiogram done less than 2 weeks ago. Due to the severe renal dysfunction I would recommend the following * Intravenous nitroglycerin to titrate blood pressure to 140 systolic * Intravenous furosemide or bumetanide as has been started continuously * (2) Severe hypertension: PLAN: Start intravenous nitroglycerin Oral Apresoline and titrate this up as appropriate PLAN: Plan Recommend reevaluation with the renal service. HPI Consult Data Date of Consult: 05/20/25 HPI Narrative HPI Narrative: MINDY GILLILAND, is a 44 F who presents to the emergency room with complaints of chest pain and shortness of breath. She apparently was recently admitted to the hospital almost 2 weeks ago with similar complaints she was admitted to the intensive care unit she was noted to have markedly elevated blood pressure and troponin and evaluation at that time demonstrated bilateral pleural effusions interstitial patchy infiltrates. She underwent an echocardiogram which demonstrated global reduction of low ventricular systolic function estimated EF of 35% mild left atrial enlargement. She apparently had a positive drug test. At that time she was also noted to be anasarcic. Her blood pressure on admission this time she was noted to be markedly hypertensive with a blood pressure of 204/122 she was anemic creatinine was markedly elevated at 2.85. It was noted to be normal in August of this year. Urinalysis had demonstrated evidence of proteinuria and occult blood but she did have a negative MARIANO and ANCA screens at her large hospitalization. Her electrocardiogram demonstrated sinus tachycardia with no acute changes. Unfortunately she pursued a self- directed discharge pathway during her last admission. [facility] Medical History Substance abuse Wears dentures Wears glasses Anxiety Diabetes Kidney stones Anemia Back pain Injury of back Migraine headache Injury of head and neck Loss of consciousness Gastric reflux Smoker Leg cramps History of pain when walking History of edema Hx of hidradenitis suppurativa Personal history of Methicillin resistant Staphylococcus aureus infection Right axillary hidradenitis Arthritis Smoker DM type 2 (diabetes mellitus, type 2) Home Medications ?Medication ?Instructions ?Recorded ?Last Taken ?Type NK 05/05/25 Unknown History Allergy/AdvReac Type Severity Reaction Status Date / Time hydrocodone bitartrate (From AdvReac Vomiting Verified 05/20/25 00:55 Vicodin) hydromorphone HCl (From AdvReac Other Verified 05/20/25 00:55 Dilaudid) tramadol AdvReac Other Verified 05/20/25 00:55 Family History Other Diabetes Surgical History Hx of tooth extraction History of cystoscopy Hidradenitis Social History household members: none Smoking Status: Current every day smoker tobacco type: cigars second hand exposure: Yes alcohol intake: former substance use type: marijuana additional social history: Does Not Take Aspirin Does Take Ibuprofen As Needed ROS Constitutional Constitutional: Denies fever(s) or weight loss Eyes Eyes: Reports systems reviewed and no addt'l complaints, except as documented ENT HEENT: Reports systems reviewed and no addt'l complaints, except as documented Cardiovascular Cardiovascular: Denies chest pain at rest, chest pain with activity, dyspnea at rest, dyspnea on exertion, edema, palpitations or paroxysmal nocturnal dyspnea Respiratory/Chest Respiratory/Chest: Reports dyspnea on exertion and shortness of breath with exertion; Denies productive cough or shortness of breath at rest Gastrointestinal Gastrointestinal: Denies change in bowel habits, nausea, vomiting or weight changes Genitourinary Genitourinary: Denies difficulty urinating Musculoskeletal Musculoskeletal: Denies joint stiffness or muscle weakness Integumentary Integumentary: Denies lesions Neurologic Neurologic: Denies dizziness or syncope Psychiatric Psychiatric: Denies anxiety Endocrine Endocrinology: Denies excessive sweating or fatigue Hematologic/Lymphatic Hematologic/Lymphatic: Denies anemia Allergic/Immunologic Allergic/Immunologic: Denies seasonal rhinorrhea Physical Exam Const alert and oriented x3 Orientation / Consciousness: awake HEENT normocephalic Neck Carotids: normal carotid upstroke Chest inspection of chest normal Resp Auscultation: diminished lung sounds Cardio regular rate and regular rhythm Heart Sounds: gallop S3 gallop, S4 gallop and summation gallop Extremity General Extremity: edema Psych mental status grossly normal Objective Data Vital Signs: Vital Signs Temp Pulse Resp BP Pulse Ox O2 Del Method FiO2 97.5 F L 120 H 20 H 180/110 H 96 CPAP 21 05/20/25 06:39 05/20/25 06:39 05/20/25 06:39 05/20/25 06:39 05/20/25 06:39 05/20/25 06:39 05/20/25 03:55 Oxygen Delivery Method CPAP Weight: 171 lb 11.841 oz Body Mass Index (BMI) 30.4 Intake & Output: Intake and Output for Last 24 Hours 05/18/25 05/19/25 05/20/25 23:59 23:59 23:59 Intake Total 0 / 0 Balance 0 / 0 Lab / Micro Data 05/20/25 00:48 05/20/25 00:48 Labs: Laboratory Results - last 24 hr 05/20/25 00:48: WBC 9.8, RBC 3.51 L, Hgb 10.3 L, Hct 30.9 L, MCV 88.0, MCH 29.3, MCHC 33.3, RDW Std Deviation 43.0, RDW Coeff of Giselle 13.5, Plt Count 384, MPV 11.6, Immature Gran % (Auto) 0.400, Neut % (Auto) 69.4, Lymph % (Auto) 20.5, Pocahontas % (Auto) 6.6, Eos % (Auto) 2.2, Baso % (Auto) 0.9, Absolute Neuts (auto) 6.8, Absolute Lymphs (auto) 2.01, Nucleated RBC % 0, Sodium 136, Potassium 4.0, Chloride 104, Carbon Dioxide 20.3 L, Anion Gap 12, BUN 35 H, Creatinine 2.85 H, Estim Creat Clear Calc 25.74 L, Est GFR (MDRD) Non-Af 20 L, BUN/Creatinine Ratio 12.2, Glucose 348 H, Hemoglobin A1c 9.5 H, Calcium 8.4, Magnesium 2.2, Troponin T High Sens 244 H* D, [place] [address] H 05/20/25 02:43: Total Creatine Kinase 518 H, Troponin T Hi Sens 2 Hr 224 H* 05/20/25 04:18: POC Glucose 309 H 05/20/25 05:21: Troponin T High Sens 220 H* D 05/20/25 06:24: POC Glucose 280 H Cardiology Labs/Tests 05/20/25 00:48: WBC 9.8, RBC 3.51 L, Hgb 10.3 L, Hct 30.9 L, MCV 88.0, MCH 29.3, MCHC 33.3, Plt Count 384, MPV 11.6, Immature Gran % (Auto) 0.400, Neut % (Auto) 69.4, Lymph % (Auto) 20.5, Pocahontas % (Auto) 6.6, Eos % (Auto) 2.2, Baso % (Auto) 0.9, Absolute Neuts (auto) 6.8, Nucleated RBC % 0, Sodium 136, Potassium 4.0, Chloride 104, Carbon Dioxide 20.3 L, Anion Gap 12, BUN 35 H, Creatinine 2.85 H, Est GFR (MDRD) Non-Af 20 L, BUN/Creatinine Ratio 12.2, Glucose 348 H, Hemoglobin A1c 9.5 H, Calcium 8.4, Magnesium 2.2 Rhythm: EKG: ECHO: Stress Test: Cardiac Cath: PCI: CT Surgery: Holter monitor: EPS: PPM: CXR: Chest CT Scan: Radiography Diagnostic Testing: Radiology Impression Chest X-Ray 05/20/25 01:20 IMPRESSION: Mild increase in bilateral pleural effusions. Mild increase in passive atelectatic airspace disease of the lower lobes. Increased interstitial pulmonary congestion. Reading [facility] Risk Score for UA/STEMI Assesmment (YES = 1) Risk Stratification Applicable: No
[2025-05-20 07:30] LABS: Hematocrit 29.4 % (37-47); Hemoglobin 9.8 g/dL (12.0-15.0); Immature Granulocytes Count 0.030 X10^3/uL (0.0-0.0); Mean Corp Hgb Conc 33.3 g/dL (32-36); Mean Corpuscular Volume 88.0 fL (81-99); Mean Platelet Vol. 11.4 fl (6.2-12.0); NRBC Flagged by Analyzer 0 % (0-5); Platelet Count 366 K/mm3 (150-450); RBC Distribution Width CV 13.4 % (11.6-14.6); RBC Distribution Width SD 43.5 fl (35.1-43.9); Red Blood Count 3.34 M/mm3 (4.2-5.4); White Blood Count 8.4 K/mm3 (4.4-11.0)
[2025-05-20 08:18] LABS: AST(SGOT) 21 U/L (<=31); Alanine Aminotransfer ALT/SGPT 21 U/L (<=34); Albumin, Serum 2.1 g/dL (3.5-5.0); Alkaline Phosphatase 102 U/L (35-104); Anion Gap 9 (5-15); BUN 33 mg/dL (4-19); BUN/Creat Ratio 11.9 RATIO (10-20); Calcium,Total 8.1 mg/dL (7.6-11.0); Carbon Dioxide 20.8 mmol/L (21.0-32.0); Chloride 106 mmol/L (98-108); Estimated Creatinine Clearance 25.07 ml/min (50-250); Globulin 3.3 g/dL (2.2-4.2); Glucose 294 mg/dL (70-99); Magnesium 2.1 mg/dL (1.5-2.2); Potassium 3.9 mmol/L (3.3-5.1)
[2025-05-20] MEDS: Nitroglycerin Infusion 250 ML 6 MG CONT INF (08:24)
[2025-05-20] MEDS: Aspirin E.C. 81 MG Tablet PO (08:28)
[2025-05-20] MEDS: Insulin Glargine-YFGN 100 UNIT/ML Pen 20 UNIT SC (09:26)
--- NOTE | 2025-05-20 10:00 | CASEMGMT ---
RN?CM?ASSESSMENT ? RN?CM?to room to meet with patient for initial transition planning/care coordination?assessment.?RN?CM?introduced self and role at [facility].? Pt voices understanding and consents to?assessment?at this time.? Pt resting in bed in no distress at this time.? Pt is A/O at this time and answers all questions appropriately.?? Care providers, pharmacy, and demographics verified/updated at this time. ? Strata: 2 PCP: No PCP. Pt states she would be willing to get established w/PCP. Given Physician's Directory and info on [facility]. She states would be willing to f/u @ [facility] next week for a hospital follow-up visit and stated this VISHAL NIXON could schedule an appt for her. Appt made w/COREY Gutierrez for 05/26 @ 11:15 AM @ [facility]. Pt made aware and this was added to dc plan. Pt made aware if she wishes to establish w/them as her PCP to let them know @ the appt. She voices appreciation. Specialists: none Preferred Pharmacy: [facility] retail @ discharge [facility] [place] Pres[place] Benefit:?yes Medications: Pt has been non-compliant w/taking medications @ home, including insulin. Pt states she is willing to start taking her medications and insulin now & verifies she knows how to administer it. Living Will/HPOA:?Pt does not currently have LW/HCPOA. She is interested in completing HCPOA, stating she would like her niece, Kamala Faulkner, to be her HCPOA and then her nephew, Joseph Faulkner, to be 1st alternative. She states she does not know their addresses, but could reach out to them today to get this info. She had VISHAL NIOXN hand her her belongings back so she could get her phone out to have w/her. LNOK: Pt states she has 5 siblings on her mothers' side and 2 half-siblings on her fathers' side. Brother, Sb, and sister, Miguelina, are on her contact list. Living Arrangements: Lives in 2nd-story apartment w/flight of stairs to go up to enter. Her father, who has dementia, lives w/her. She states she had not been in contact w/him for about 14 years and received a call from him last year. She states he was very malnourished, weighing only about 80#, so she had him move in w/her and she has been taking care of him since. She states she is independent w/ADL's & IADL's. She does report having difficulty getting up the flight of stairs d/t leg pain, but states she just takes them slowly. She states she needs to move by the end of the month and would like housing resources from . Denae ROBIN, made aware. Transportation:?Pt states she has her drivers' license but does not currently have a vehicle. She walks to get her groceries. She is aware of [employer] transportation benefits and is aware she needs to call 48 hrs in advance to schedule w/them for appts. She states she will call to schedule them to take her to appt @ [facility] next week & denies needing assistance w/this. She would like further transportation resources. Denae ROBIN, aware. DME: ?Pt states she has no DME. She is willing to start checking her BS's again and would like a script for a glucometer. She states it has been more than 5 years since getting her last glucometer. She does not have a pulse ox. VISHAL NIXON recommended she get one and made aware of locations this can be purchased. Pt is interested in getting a cane. Made aware insurance does not cover this and informed of locations she could purchase a cane. She would like a shower chair as well. Pt does not have home O2. If O2 is needed @ discharge, she states to use [employer]. HHC/SNF: No hx of SNF. Has had [facility] and [facility]. She would like HHC @ discharge for SN for CHF & DM. Made aware she will need to get established w/PCP before HHC can get set up. She voices understanding. VISHAL NIXON informed her, if she wishes to establish w/[facility], to let them know @ appt next Tu and to discuss HHC w/them @ that appt. ? Pt wishes to return home and states has no further concerns with going home at time of discharge. CM?to follow for home oxygen needs and any further discharge planning/needs.? Pt voices no further concerns/needs at this time.? ? PLAN:?Home. Follow for possible O2 @ discharge. Pt to be provided a script for glucometer and shower chair. ? ? Laina BSN?RN?CM ? ?
[2025-05-20 11:00] LABS: Internal QC Validated? YES +Cl - CLEAR BKGD
[2025-05-20 11:01] LABS: Pregnancy, Urine Negative Negative; Record Kit Lot#,Urine Preg 0000980607
--- NOTE | 2025-05-20 11:50 | CON.PCM.RE_ITS ---
Assessment & Plan Assessment/Plan (1) Acute kidney injury: (2) Acute HFrEF (heart failure with reduced ejection fraction): (3) Severe hypertension: PLAN: Plan This is a 44-year-old female with past medical history significant for diabetes mellitus type 2, uncontrolled (hemoglobin A1c 9.5% 05/20/2025), stopped taking her medications who presented to the emergency room with chest pain and shortness of breath, admitted for elevated troponin, dyspnea secondary to acute heart failure reduced EF and BENNIE. Echo on 05/06/2025 EF 35%, mild to moderate left ventricular hypertrophy, severe LV systolic dysfunction, stage I diastolic dysfunction, trivial pericardial effusion. Significantly elevated BNP 20,000. Chest x-ray from this morning mild increased bilateral pleural effusions, increased interstitial pulmonary congestion. Patient had renal ultrasound from last admission which did not show any hydronephrosis. During last hospitalization patient was noted to have proteinuria and hematuria therefore renal serologies were sent. MARIANO negative, c-ANCA p-ANCA both resulted at less than 1:20. Test could not be performed on double-stranded DNA. Urine protein greater than 600, urine creatinine 33.7. Creatinine as of August 2024 was less than 1 mg/dL. Will send serum immunofixation. During last hospitalization in May 05 creatinine 2.42 and today creatinine 2.8 mg/dL. Potassium and bicarb acceptable, patient nonoliguric. There is no acute indication for renal placement therapy. Patient likely has component of diabetic nephropathy and will follow serum creatinine trajectory to determine baseline CKD. Patient is hypervolemic, recommend to continue on bumetanide drip; cardiology has been consulted and patient is also on nitro drip. Further orders forthcoming as hospitalization evolves, thank you for allowing us to participate in the care of Ms. Faulkner. Assessment and plan reviewed with Dr. Wilder. HPI Consult Data Date of Consult: 05/20/25 HPI Narrative HPI Narrative: MINDY FAULKNER, is a 44 F who presented emergency room early this morning with complaints of shortness of breath and chest pain. Patient was admitted for detectable troponin, BENNIE on possible CKD, and dyspnea secondary to acute heart failure reduced EF. Nephrology consulted in view of elevated creatinine. Patient was just seen by our group when she was admitted to the hospital on 05/05/2025 with same complaints unfortunately patient signed herself out of the hospital AMA. We were consulted for elevated creatinine. Patient has past medical history significant for diabetes mellitus type 2, diagnosed in her early 20s however stopped taking all medications early this year as she wanted to go all-natural. We were consulted for elevated creatinine. Patient denies any NSAIDs. Patient states she is still not taking any medications. She denies dysuria or hematuria. Patient states her mother was on hemodialysis from diabetes but is . COUNT INCLUDES [facility] Medical History Substance abuse Wears dentures Wears glasses Anxiety Diabetes Kidney stones Anemia Back pain Injury of back Migraine headache Injury of head and neck Loss of consciousness Gastric reflux Smoker Leg cramps History of pain when walking History of edema Hx of hidradenitis suppurativa Personal history of Methicillin resistant Staphylococcus aureus infection Right axillary hidradenitis Arthritis Smoker DM type 2 (diabetes mellitus, type 2) Home Medications ?Medication ?Instructions ?Recorded ?Last Taken ?Type NK 05/05/25 Unknown History Allergy/AdvReac Type Severity Reaction Status Date / Time hydrocodone bitartrate (From AdvReac Vomiting Verified 05/20/25 00:55 Vicodin) hydromorphone HCl (From AdvReac Other Verified 05/20/25 00:55 Dilaudid) tramadol AdvReac Other Verified 05/20/25 00:55 Family History Other Diabetes Surgical History Hx of tooth extraction History of cystoscopy Hidradenitis Social History household members: none Smoking Status: Current every day smoker tobacco type: cigars second hand exposure: Yes alcohol intake: former substance use type: marijuana additional social history: Does Not Take Aspirin Does Take Ibuprofen As Needed ROS ROS Narrative As in HPI otherwise negative Physical Exam Narrative Alert and orient x 3, no apparent distress S1, S2, RRR Lung sounds with scattered rales. On O2 nasal cannula Abdomen soft, nontender Pitting edema bilateral lower legs extending up into her thighs Lab / Micro Data 05/20/25 06:59 05/20/25 06:59 Labs: Laboratory Results - last 24 hr 05/20/25 00:48: WBC 9.8, RBC 3.51 L, Hgb 10.3 L, Hct 30.9 L, MCV 88.0, MCH 29.3, MCHC 33.3, RDW Std Deviation 43.0, RDW Coeff of Giselle 13.5, Plt Count 384, MPV 11.6, Immature Gran % (Auto) 0.400, Neut % (Auto) 69.4, Lymph % (Auto) 20.5, Clare % (Auto) 6.6, Eos % (Auto) 2.2, Baso % (Auto) 0.9, Absolute Neuts (auto) 6.8, Absolute Lymphs (auto) 2.01, Nucleated RBC % 0, Sodium 136, Potassium 4.0, Chloride 104, Carbon Dioxide 20.3 L, Anion Gap 12, BUN 35 H, Creatinine 2.85 H, Estim Creat Clear Calc 25.74 L, Est GFR (MDRD) Non-Af 20 L, BUN/Creatinine Ratio 12.2, Glucose 348 H, Hemoglobin A1c 9.5 H, Calcium 8.4, Magnesium 2.2, Troponin T High Sens 244 H* D, [place] [address] H 05/20/25 02:43: Total Creatine Kinase 518 H, Troponin T Hi Sens 2 Hr 224 H* 05/20/25 04:18: POC Glucose 309 H 05/20/25 05:21: Troponin T High Sens 220 H* D 05/20/25 06:24: POC Glucose 280 H 05/20/25 06:59: WBC 8.4, RBC 3.34 L, Hgb 9.8 L, Hct 29.4 L, MCV 88.0, MCH 29.3, MCHC 33.3, RDW Std Deviation 43.5, RDW Coeff of Giselle 13.4, Plt Count 366, MPV 11.4, Immature Gran % (Auto) 0.400, Neut % (Auto) 64.1, Lymph % (Auto) 25.7, Clare % (Auto) 6.5, Eos % (Auto) 2.4, Baso % (Auto) 0.9, Absolute Neuts (auto) 5.4, Absolute Lymphs (auto) 2.17, Nucleated RBC % 0, Sodium 136, Potassium 3.9, Chloride 106, Carbon Dioxide 20.8 L, Anion Gap 9, BUN 33 H, Creatinine 2.80 H, E stim Creat Clear Calc 25.07 L, Est GFR (MDRD) Non-Af 21 L, BUN/Creatinine Ratio 11.9, Glucose 294 H, Calcium 8.1, Phosphorus 3.9, Magnesium 2.1, Total Bilirubin 0.17, AST 21, ALT 21, Alkaline Phosphatase 102, Total Protein 5.4 L, Albumin 2.1 L, Globulin 3.3, Albumin/Globulin Ratio 0.6 L 05/20/25 10:50: Urine Test Negative Imaging Radiology Impression Chest X-Ray 05/20/25 01:20 IMPRESSION: Mild increase in bilateral pleural effusions. Mild increase in passive atelectatic airspace disease of the lower lobes. Increased interstitial pulmonary congestion. Reading Location[facility]
[2025-05-20 12:05] LABS: Barbiturate Urine NEGATIVE (< 200 ng/mL); Benzodiazepine Urine NEGATIVE (< 200 ng/mL); PCP Urine NEGATIVE (< 25 ng/mL); THC Urine NEGATIVE (< 50 ng/mL)
--- NOTE | 2025-05-20 12:16 | CASEMGMT ---
Addendum entered by Denae Cannon 05/20/25 15:14: SW also gave her housing resources and a street card. Original Note: Social Work SW spoke with the patient. Patient reported she is on metro housing and is looking for a place to move to. She reported her landlord has told her to move out by the end of the month. She reported her dad lives with her and has dementia. She reported her friend is with him now. Patient reported she need assistance with transportation. SW provided her information about [employer]. Patient reported she would like to complete POA but does not have addresses. SW informed her SW would check back this afternoon or tomorrow morning to see if she has the information for the POAs. NIMO Pompa
--- NOTE | 2025-05-20 14:10 | CASEMGMT ---
Social Work SW followed up the patient regarding completing her POA. Patient reported she will not have the addresses of the POAs until after 500pm today. SW informed her SW will follow up tomorrow. Plan: SW will follow up tomorrow. NIMO Pompa
--- NOTE | 2025-05-20 18:55 | EKG12_ITS ---
Test Reason : PRE STRESS TEST Blood Pressure : */* mmHG Vent. Rate : 93 BPM Atrial Rate : 93 BPM P-R Int : 120 ms QRS Dur : 80 ms QT Int : 362 ms P-R-T Axes : 45 61 82 degrees QTcB Int : 450 ms Normal sinus rhythm Nonspecific T wave abnormality Abnormal ECG When compared with ECG of 20-May-2025 19:06, MANUAL COMPARISON REQUIRED DATA IS UNCONFIRMED Confirmed by TIMOTEO CUEVA, LIZZY ([id number]), technical editor ANJALI FANG ([id number]) on 05/21/2025 8:57:37 AM Referred By: Confirmed By: LIZZY MAHMOOD MD
[2025-05-20] MEDS: Nitroglycerin (INPATIENT USE) 0.4 MG TAB.SUBL SL ×2 (19:02→19:10)
--- NOTE | 2025-05-20 19:50 | PCM.HOSP.N ---
Hospitalist Note Patient was seen and examined today, she is on room air and her blood pressure is under control, her nitroglycerin drip was stopped and I changed her Bumex to IV push Bumex every 8 hours. I discussed her care briefly with cardiology today, tonight patient complained of chest discomfort, nitroglycerin helped with this, EKG showed a sinus tachycardia at 102 but no evidence of any ischemic changes. Patient will continue her present medications and she will be monitored on telemetry. I will discuss her care further with cardiology.
[2025-05-20] MEDS: MELATONIN 10 MG TABLET PO (22:07)
[2025-05-20] MEDS: 0.9% Saline Lock 10 ML Syringe IV (22:08)
[2025-05-20] MEDS: hydrOXYzine PAM 25 MG Capsule PO (23:28)
[2025-05-21] VITALS (9 sets, daily range): BP systolic 140–142; BP diastolic 89–102; PULSE 95–110; RESP 12–30; TEMP 36.4–36.8; O2SAT 94–100
--- NOTE | 2025-05-21 05:55 | EKG12_ITS ---
Test Reason : CP Blood Pressure : */* mmHG Vent. Rate : 102 BPM Atrial Rate : 102 BPM P-R Int : 122 ms QRS Dur : 76 ms QT Int : 306 ms P-R-T Axes : 66 90 95 degrees QTcB Int : 398 ms Sinus tachycardia Rightward axis Nonspecific T wave abnormality Abnormal ECG When compared with ECG of 20-May-2025 00:53, Nonspecific T wave abnormality, worse in Inferior leads Confirmed by TIMOTEO CUEVA, LIZZY ([id number]), copy editor ANJALI FANG ([id number]) on 05/21/2025 8:57:44 AM Referred By: Confirmed By: LIZZY MAHMOOD MD
[2025-05-21] MEDS: 0.9% Saline Lock 10 ML Syringe IV (06:47)
[2025-05-21] MEDS: Aspirin E.C. 81 MG Tablet PO (06:47)
--- NOTE | 2025-05-21 07:11 | PN.CARD_ITS ---
Subjective Subjective Patient seen and evaluated. Doing better this morning. Had BiPAP for sleep. Breath sleeping in bed flat this morning Objective Data Vital Signs: Vital Signs Temp Pulse Resp BP Pulse Ox O2 Del Method O2 Flow Rate 97.5 F L 95 17 142/102 H 100 Bi-pap 2 05/21/25 06:43 05/21/25 06:46 05/21/25 06:43 05/21/25 06:46 05/21/25 06:43 05/21/25 06:43 05/20/25 21:47 FiO2 21 05/21/25 01:05 Oxygen Flow Rate (L/min) 2 Oxygen Delivery Method Bi-pap Weight: 173 lb 15.115 oz Body Mass Index (BMI) 30.8 Intake & Output: Intake and Output for Last 24 Hours 05/19/25 05/20/25 05/21/25 23:59 23:59 23:59 Intake Total 1565.92 / 1565.92 100 / 100 Output Total 800 / 800 Balance 765.92 / 765.92 100 / 100 Lab / Micro Data 05/20/25 06:59 05/20/25 06:59 Labs: Laboratory Results - last 24 hr 05/20/25 06:59: WBC 8.4, RBC 3.34 L, Hgb 9.8 L, Hct 29.4 L, MCV 88.0, MCH 29.3, MCHC 33.3, RDW Std Deviation 43.5, RDW Coeff of Giselle 13.4, Plt Count 366, MPV 11.4, Immature Gran % (Auto) 0.400, Neut % (Auto) 64.1, Lymph % (Auto) 25.7, [place] % (Auto) 6.5, Eos % (Auto) 2.4, Baso % (Auto) 0.9, Absolute Neuts (auto) 5.4, Absolute Lymphs (auto) 2.17, Nucleated RBC % 0, Sodium 136, Potassium 3.9, Chloride 106, Carbon Dioxide 20.8 L, Anion Gap 9, BUN 33 H, Creatinine 2.80 H, E stim Creat Clear Calc 25.07 L, Est GFR (MDRD) Non-Af 21 L, BUN/Creatinine Ratio 11.9, Glucose 294 H, Calcium 8.1, Phosphorus 3.9, Magnesium 2.1, Total Bilirubin 0.17, AST 21, ALT 21, Alkaline Phosphatase 102, Total Protein 5.4 L, Albumin 2.1 L, Globulin 3.3, Albumin/Globulin Ratio 0.6 L 05/20/25 10:50: Urine Test Negative, Urine Opiates Screen NEGATIVE, U Buprenorphine Qual NEGATIVE, Ur Oxycodone Screen NEGATIVE, Urine Methadone Screen NEGATIVE, Urine Fentanyl Screen PRESUMPTIVE POSITIVE, Ur Barbiturates Screen NEGATIVE, Ur Phencyclidine Scrn NEGATIVE, Ur Amphetamines Screen NEGATIVE, U Benzodiazepines Scrn NEGATIVE, Urine Cocaine Screen NEGATIVE, U Cannabinoids Screen NEGATIVE 05/20/25 11:40: POC Glucose 206 H 05/20/25 16:20: POC Glucose 142 H 05/20/25 21:50: POC Glucose 91 Cardiology Labs/Tests 05/20/25 06:59: WBC 8.4, RBC 3.34 L, Hgb 9.8 L, Hct 29.4 L, MCV 88.0, MCH 29.3, MCHC 33.3, Plt Count 366, MPV 11.4, Immature Gran % (Auto) 0.400, Neut % (Auto) 64.1, Lymph % (Auto) 25.7, [place] % (Auto) 6.5, Eos % (Auto) 2.4, Baso % (Auto) 0.9, Absolute Neuts (auto) 5.4, Nucleated RBC % 0, Sodium 136, Potassium 3.9, Chloride 106, Carbon Dioxide 20.8 L, Anion Gap 9, BUN 33 H, Creatinine 2.80 H, E st GFR (MDRD) Non-Af 21 L, BUN/Creatinine Ratio 11.9, Glucose 294 H, Calcium 8.1, Phosphorus 3.9, Magnesium 2.1, Total Bilirubin 0.17 Rhythm: EKG: ECHO: Stress Test: Cardiac Cath: PCI: CT Surgery: Holter monitor: EPS: PPM: CXR: Chest CT Scan: Physical Exam Const alert and oriented x3 Orientation / Consciousness: awake HEENT normocephalic Neck Carotids: normal carotid upstroke Chest inspection of chest normal Resp Auscultation: diminished lung sounds Cardio regular rate and regular rhythm Heart Sounds: gallop S3 gallop, S4 gallop and summation gallop Extremity General Extremity: edema Psych mental status grossly normal Assessment & Plan Assessment/Plan (1) Acute HFrEF (heart failure with reduced ejection fraction): PLAN: Patient presents with an acute exacerbation of congestive heart failure. She was known to have reduced left ventricular systolic function on the last echocardiogram done less than 2 weeks ago. Due to the severe renal dysfunction I would recommend the following Start carvedilol and titrate as appropriate Oral nitrates Oral hydralazine Oral furosemide. The etiology is likely nonischemic and a stress test is being performed this morning. To complete the workup. * (2) Severe hypertension: PLAN: Oral Apresoline and titrate this up as appropriate Beta-blockers have been started PLAN: Plan Recommend reevaluation with the renal service.
--- NOTE | 2025-05-21 10:00 | PCM.PN.REN ---
Subjective Subjective Patient resting in bed. States feeling tired this morning, denies any shortness of breath or chest pain. On room air. Objective Data Objective Data Vital Signs: Vital Signs Temp Pulse Resp BP Pulse Ox O2 Del Method O2 Flow Rate 97.5 F L 95 17 142/102 H 100 Bi-pap 2 05/21/25 06:43 05/21/25 06:46 05/21/25 06:43 05/21/25 06:46 05/21/25 06:43 05/21/25 06:43 05/20/25 21:47 FiO2 21 05/21/25 01:05 Oxygen Flow Rate (L/min) 2 Oxygen Delivery Method Bi-pap Weight: 78.9 kg Body Mass Index (BMI) 30.8 Intake & Output: Intake and Output for Last 24 Hours 05/19/25 05/20/25 05/21/25 23:59 23:59 23:59 Intake Total 1565.92 / 1565.92 100 / 100 Output Total 800 / 800 Balance 765.92 / 765.92 100 / 100 Lab / Micro Data 05/20/25 06:59 05/20/25 06:59 Labs: Laboratory Results - last 24 hr 05/20/25 10:50: Urine Test Negative, Urine Opiates Screen NEGATIVE, U Buprenorphine Qual NEGATIVE, Ur Oxycodone Screen NEGATIVE, Urine Methadone Screen NEGATIVE, Urine Fentanyl Screen PRESUMPTIVE POSITIVE, Ur Barbiturates Screen NEGATIVE, Ur Phencyclidine Scrn NEGATIVE, Ur Amphetamines Screen NEGATIVE, U Benzodiazepines Scrn NEGATIVE, Urine Cocaine Screen NEGATIVE, U Cannabinoids Screen NEGATIVE 05/20/25 11:40: POC Glucose 206 H 05/20/25 16:20: POC Glucose 142 H 05/20/25 21:50: POC Glucose 91 05/21/25 06:40: POC Glucose 84 Physical Exam Narrative Alert and orient x 3, no apparent distress S1, S2, RRR Lung sounds diminished. No rales, rhonchi or or wheezes. On room air Abdomen soft, nontender Pitting edema bilateral lower legs extending up into her thighs Assessment & Plan Assessment/Plan (1) Acute kidney injury: (2) Acute HFrEF (heart failure with reduced ejection fraction): (3) Severe hypertension: PLAN: Plan This is a 44-year-old female with past medical history significant for diabetes mellitus type 2, uncontrolled (hemoglobin A1c 9.5% 05/20/2025), stopped taking her medications who presented to the emergency room with chest pain and shortness of breath, admitted for elevated troponin, dyspnea secondary to acute heart failure reduced EF and BENNIE. Echo on 05/06/2025 EF 35%, mild to moderate left ventricular hypertrophy, severe LV systolic dysfunction, stage I diastolic dysfunction, trivial pericardial effusion. Significantly elevated BNP 20,000. Chest x-ray from this morning mild increased bilateral pleural effusions, increased interstitial pulmonary congestion. Patient had renal ultrasound from last admission which did not show any hydronephrosis. During last hospitalization patient was noted to have proteinuria and hematuria therefore renal serologies were sent. MARIANO negative, c-ANCA p-ANCA both resulted at less than 1:20. Test could not be performed on double-stranded DNA. Urine protein greater than 600, urine creatinine 33.7. Creatinine as of August 2024 was less than 1 mg/dL. Will send serum immunofixation. During last hospitalization in May 05 creatinine 2.42 and today creatinine 2.8 mg/dL. Potassium and bicarb acceptable, patient nonoliguric. There is no acute indication for renal placement therapy. Patient likely has component of diabetic nephropathy and will follow serum creatinine trajectory to determine baseline CKD. Patient is hypervolemic, recommend to continue on bumetanide drip; cardiology has been consulted and patient is also on nitro drip. -05/21/2025; Mildly hypervolemic, nonoliguric BENNIE versus CKD with proteinuria; likely diabetes related CKD. Labs pending this morning. Patient was on Bumex drip but stopped due to hypotension, now on Lasix 60 mg oral twice daily. Breathing is better, on room air. Off nitro drip. Stress test done this morning, results pending. Blood pressure is much improved now on hydralazine 25 mg 3 times daily, carvedilol 12.5 twice daily, Isordil and furosemide. Serum immunofixation pending. Patient is nonoliguric. Will follow serum creatinine trajectory today. Discussed with patient importance of needing to establish and continue to follow with PCP (patient states she has not followed with PCP for many years, also not taking medications for many years). Hemoglobin A1c has been around 10 to 11% since 2011. Last hemoglobin A1c 9.5%. Discussed with patient importance of illicit drug cessation, tobacco cessation. Discussed with patient will arrange for hospital follow up in [place] office, patient familiar with Hemodialysis as her mother was on dialysis, now . Reviewed importance of adequate glycemic control, blood pressure control, avoiding NSAIDs and illicit drugs for overall CKD health, questions answered. Assessment and plan reviewed with Dr. Wilder.
[2025-05-21 10:15] LABS: Hematocrit 30.4 % (37-47); Hemoglobin 10.2 g/dL (12.0-15.0); Immature Granulocytes Count 0.020 X10^3/uL (0.0-0.0); Mean Corp Hgb Conc 33.6 g/dL (32-36); Mean Corpuscular Volume 88.6 fL (81-99); Mean Platelet Vol. 11.2 fl (6.2-12.0); NRBC Flagged by Analyzer 0 % (0-5); Platelet Count 340 K/mm3 (150-450); RBC Distribution Width CV 13.8 % (11.6-14.6); RBC Distribution Width SD 44.1 fl (35.1-43.9); Red Blood Count 3.43 M/mm3 (4.2-5.4); White Blood Count 8.0 K/mm3 (4.4-11.0)
--- NOTE | 2025-05-21 10:19 | STRESSREP ---
Stress Test Report Pharmacologic myocardial perfusion stress test. [44]-year-old [female] with a history of [chest pain and dyspnea on exertion]. Resting EKG demonstrates [sinus rhythm] with a rate of [[address] segment changes noted at baseline resting blood pressure is [148/98] mmHg. 0.4 mg of regadenoson was infused per usual protocol followed by rapid intravenous saline flush injection. Continuous EKG monitoring was performed. The maximum heart rate was [120] bpm which was [68]% of max impacted heart rate the maximum workload was [1] metabolic equivalent. At rest there were no ST or T wave changes noted to suggest ischemia and at peak infusion nonspecific ST changes were noted which did not meet the criteria for ischemia. No clinical angina is noted. The final blood pressure was 160/84 mmHg. Myocardial perfusion protocol. [11.8] mCi of technetium 99m sestamibi was injected at rest. 0.4 mg of regadenoson was infused per usual protocol. At peak infusion [34.7] mCi of technetium 99m sestamibi was injected stress images were obtained stress and rest images were reconstructed and compared in the short axis vertical long and horizontal long axis. Gated images were also obtained. Perfusion SPECT analysis: Review of the stress images demonstrate normal uptake of tracer noted in all areas of the myocardium. The resting images similar demonstrated normal uptake of tracer noted in all areas of the myocardium. No areas of reversibility are noted to suggest ischemia and no previous infarct is noted. Gated SPECT analysis: The gated ejection fraction is [32]%. Conclusion: [Negative] pharmacologic myocardial perfusion stress test for ischemia or infarction consistent with nonischemic cardiomyopathy considering the severely reduced ejection fraction at 32%.
[2025-05-21] MEDS: Isosorbide DN 20 MG Tablet PO (10:42)
[2025-05-21 10:57] LABS: Anion Gap 8 (5-15); BUN 33 mg/dL (4-19); BUN/Creat Ratio 9.7 RATIO (10-20); Calcium,Total 7.9 mg/dL (7.6-11.0); Carbon Dioxide 23.2 mmol/L (21.0-32.0); Chloride 104 mmol/L (98-108); Estimated Creatinine Clearance 20.97 ml/min (50-250); Glucose 123 mg/dL (70-99); Potassium 3.9 mmol/L (3.3-5.1)
--- NOTE | 2025-05-21 12:28 | CASEMGMT ---
VISHAL NIXON NOTE: Script for glucometer obtained from Dr Clements. Script given to JORDON Mccauley RN, CM, who states she will give to pt. Dr Clements aware pt would like a script for a shower chair. He states he is not willing to sign a script for a shower chair. JORDON Mccauley RN, CM, aware. Laina SEVERINO RN, CM
--- NOTE | 2025-05-21 14:26 | CASEMGMT ---
Social Work- SW met with pt to discuss advanced directives. Pt reports that she has been unable to obtain addresses. Pt reports that she isn't sure about completing directives. SW provided directives form and rack card in the event that pt obtains information or woulod like to complete documents. DANN Garcia
--- NOTE | 2025-05-21 16:24 | CASEMGMT ---
RN CM received script for glucometer for patient. RN CM provided glucometer script to patient and placed in discharge folder. Patient had no further questions or concerns.
[2025-05-21] MEDS: Heparin Injection (Vial) 5,000 UNIT/ML VIAL 5000 UNIT SC (16:31)
--- NOTE | 2025-05-21 17:57 | PCM.PN.HOSP ---
Reason for Visit Chief Complaint: CP/SOB Subjective Subjective Patient was seen and examined today, she underwent a stress test due to complaints of chest pain yesterday, stress test did not show any evidence of reversible ischemia, her ejection fraction was 32%. Patient's creatinine was elevated today 3.37 which is the highest it has been since she has been admitted. I elected to hold her diuretics today and tomorrow and repeat her BMP tomorrow morning. Patient's blood pressures still been marginally controlled, cardiology is participating in her care. Objective Data Objective Data Vital Signs: Vital Signs Temp Pulse Resp BP Pulse Ox O2 Del Method O2 Flow Rate 97.9 F 110 H 16 141/92 H 99 Room Air 2 05/21/25 10:30 05/21/25 16:31 05/21/25 10:30 05/21/25 10:30 05/21/25 10:30 05/21/25 10:30 05/20/25 21:47 FiO2 21 05/21/25 09:48 Oxygen Flow Rate (L/min) 2 Oxygen Delivery Method Room Air Weight: 78.9 kg Body Mass Index (BMI) 30.8 Intake & Output: Intake and Output for Last 24 Hours 05/19/25 05/20/25 05/21/25 23:59 23:59 23:59 Intake Total 1565.92 / 1565.92 100 / 100 Output Total 800 / 800 Balance 765.92 / 765.92 100 / 100 Lab / Micro Data 05/21/25 09:57 05/21/25 09:57 Labs: Laboratory Results - last 24 hr 05/20/25 21:50: POC Glucose 91 05/21/25 06:40: POC Glucose 84 05/21/25 09:57: WBC 8.0, RBC 3.43 L, Hgb 10.2 L, Hct 30.4 L, MCV 88.6, MCH 29.7, MCHC 33.6, RDW Std Deviation 44.1 H, RDW Coeff of Giselle 13.8, Plt Count 340, MPV 11.2, Immature Gran % (Auto) 0.300, Neut % (Auto) 60.0, Lymph % (Auto) 28.7, [place] % (Auto) 6.1, Eos % (Auto) 4.0, Baso % (Auto) 0.9, Absolute Neuts (auto) 4.8, Absolute Lymphs (auto) 2.29, Nucleated RBC % 0, Sodium 135, Potassium 3.9, Chloride 104, Carbon Dioxide 23.2, Anion Gap 8, BUN 33 H, Creatinine 3.37 H, Estim Creat Clear Calc 20.97 L, Est GFR (MDRD) Non-Af 16 L, BUN/Creatinine Ratio 9.7 L, Glucose 123 H, Calcium 7.9 05/21/25 10:34: POC Glucose 139 H 05/21/25 16:27: POC Glucose 180 H Physical Exam Const alert, oriented x3 and no apparent distress General Appearance: cooperative, well kempt and well developed Orientation / Consciousness: awake, oriented to person, oriented to place and oriented to time HEENT normocephalic, head/scalp atraumatic and moist oral mucous membranes Eyes PERRL, EOMs intact bilaterally and conjunctivae normal Neck supple, no JVD, thyroid normal and no carotid bruits General: trachea midline Resp normal respiratory effort, no retractions, no use of accessory muscles and clear to auscultation bilaterally Auscultation: Negative for rales, rhonchi or wheezes Cardio regular rate, regular rhythm, S1 normal heart sound, S2 normal heart sound, no murmurs, no rub and no gallops GI normal to inspection, nondistended, normoactive bowel sounds, soft to palpation, non-tender and non-distended Extremity no clubbing, cyanosis or edema Skin no rashes or lesions noted General Skin Exam: no breakdown Neuro oriented x3, CN's II-XII intact bilaterally, moves all extremities, no focal motor deficits and no sensory deficits noted Sensorium / Orientation: awake and alert Speech: speech normal Psych affect normal Assessment & Plan Assessment/Plan (1) Acute HFrEF (heart failure with reduced ejection fraction): PLAN: Plan 1. Acute on chronic congestive heart failure with reduced ejection fraction-patient's Lasix will be held at this time due to elevated creatinine. Patient was not placed on an ARB or an ISABEL inhibitor due to elevated creatinine. #2 acute kidney injury-this is most likely secondary to type 2 diabetes with proteinuria, unfortunately there is a gap in her lab work from August until May so it is not possible at this time to verify what her normal renal function is, it is most likely she has CKD but this cannot be proven at this point. Nephrology continues to participate in her care, BMP will be repeated tomorrow #3 cardiomyopathy-this appears to be nonischemic in nature, cardiology is participating in her care, her medications will be adjusted #4 essential hypertension-blood pressure medications will be adjusted to bring her blood pressure under control #5 type 2 diabetes-I have asked nursing to make sure the patient is comfortable with giving herself insulin, it does not appear that she has been on insulin before for her diabetic control. #6 diabetic neuropathy-patient is now on gabapentin, due to her renal function the dose was to be To under 700 mg a day. #7 opiate use disorder-complicates care, management, recovery, and prognosis Total clinical time spent by myself addressing the patient's medical issues, reviewing all of her data, and collaborating with patient's care team: 50 minutes Charges/Coding Visit Charges Inpatient E&M: 41289 Subs Hosp L3
--- NOTE | 2025-05-21 19:04 | DCINST_ITS ---
Discharge Instructions DC O2, CPAP, BIPAP needs Home O2 Discharge instructions: No Dressing / Incision Discharge Activity: Return to Normal Activity Weight Bearing Status: Full weight bearing Follow Up Care Test Results: Test results from this visit will be discussed in further detail at your follow- up appointment, if applicable. Discharge Plan Admission Admit Date/Time: 05/20/25 02:31 Primary Reason for Your Visit: Recurrent congestive heart failure, cardiomyopathy, acute kidney injury Attending Provider: Jl Cleemnts Primary Care Provider: Care Physician,No Primary Consulting Providers: Pacheco Ruiz; Brenden Wilder; Erma Diaz Discharge Orders/Prescriptions Prescriptions: New carvedilol 12.5 mg Tablet 12.5 mg PO BIDCM Qty: 60 0RF furosemide 20 mg Tablet 60 mg PO DAILY Qty: 90 0RF hydralazine 25 mg Tablet 50 mg PO TID Qty: 180 0RF gabapentin 100 mg Capsule 200 mg PO Q8H PRN PRN (Reason: leg discomfort) Qty: 180 0RF insulin glargine-yfgn 100 unit/mL (3 mL) Insulin Pen 20 unit subcut DAILY Qty: 5 0RF Referrals / Follow Up: Brenden Wilder MD [Med Staff - Consulting, Nephrology] - See Referral Note Referral Note: Call for follow-up appointment Care Physician,No Primary [Primary Care Provider, Medical] Chiquita Gutierrez PA [Non-Staff, Medical] - 05/26/25 11:15 am Disposition Disposition (needs filled in before D/C Order can be placed): Against Medical Advice
--- NOTE | 2025-05-21 19:32 | NURSING ---
Addendum entered by Roney Elise 05/21/25 19:42: Safety report filed. Original Note: Patient states she had to go home to take care of her father who is staying with her. He has Alzheimer's and a friend was staying with him. The friend had to leave and patient was unable to find anyone to stay with him. Patient decided to leave AMA and go home to be with him.
[2025-05-25 16:09] LABS: Immunoglobulin A 346 mg/dL (87-352); Immunoglobulin G 432 mg/dL (586-1602); Immunoglobulin M 147 mg/dL (26-217)
== END 2025-05-21 19:30 | disposition left against medical advice (07) | DRG 194 ==
LOC: ED 02:30 → PCU 03:11
PROVIDERS: Nurse Practitioner Adult Health; Admitting Provider Internal Medicine; Emergency Provider Emergency Medicine; Visit Provider Internal Medicine
DX: I11.0 Hypertensive heart disease with heart failure (principal); E88.09 Other disorders of plasma-protein metabolism, not elsewhere classified; E11.40 Type 2 diabetes mellitus with diabetic neuropathy, unspecified; I16.0 Hypertensive urgency; D64.9 Anemia, unspecified; I42.8 Other cardiomyopathies; I95.9 Hypotension, unspecified; I50.23 Acute on chronic systolic (congestive) heart failure; F19.19 Other psychoactive substance abuse with unspecified psychoactive substance-induced disorder; Z68.33 Body mass index [BMI] 33.0-33.9, adult; N17.9 Acute kidney failure, unspecified; E78.5 Hyperlipidemia, unspecified; F17.290 Nicotine dependence, other tobacco product, uncomplicated; E66.9 Obesity, unspecified; R80.9 Proteinuria, unspecified; R79.89 Other specified abnormal findings of blood chemistry; R09.02 Hypoxemia; R06.00 Dyspnea, unspecified; R07.9 Chest pain, unspecified; R60.1 Generalized edema
CPT/HCPCS: 36415; 71045; 78452; 80048; 80053; 80307; 81025; 82550; 82784; 82962; 83036; 83735; 83880; 84100; 84484; 85025; 86334; 93005; 93017; 94002; 94003; 99252; 99285; A9500; A4216; G0463; J2405

== ENCOUNTER 2025-06-21 16:46 | Inpatient (IN) | payer MEDICAID, SELFPAY ==
[2025-06-21] VITALS (35 sets, daily range): BP systolic 161–221; BP diastolic 94–153; PULSE 115–132; RESP 10–36; TEMP 36–36.7; O2SAT 92–100; BMI 36.5; BMI 36.0
--- NOTE | 2025-06-21 17:02 | EKG12_ITS ---
Test Reason : SOB Blood Pressure : */* mmHG Vent. Rate : 130 BPM Atrial Rate : 130 BPM P-R Int : 136 ms QRS Dur : 74 ms QT Int : 314 ms P-R-T Axes : 46 72 122 degrees QTcB Int : 462 ms Sinus tachycardia Low voltage QRS Nonspecific ST abnormality Abnormal ECG When compared with ECG of 21-May-2025 05:33, No significant change was found Confirmed by Kamari Mariscal ([id number]), editor & co founder ROMELIA GANNON ([id number]) on 06/26/2025 8:28:52 AM Referred By: JAIRO Confirmed By: Kamari Mariscal
--- NOTE | 2025-06-21 17:04 | ED.VIS.DYS ---
HPI History of Present Illness Chief Complaint: Shortness of Breath Detail of Chief Complaint: Shortness of breath Informant: patient Narrative Narrative: Patient presents with shortness of breath that started this morning. Denies any chest pain. She has history of diabetes and think she has CHF. She does take insulin. She tells me she has no primary care physician currently. Denies fever or recent illness otherwise. PFSH PFS Medical History Substance abuse Wears dentures Wears glasses Anxiety Diabetes Kidney stones Anemia Back pain Injury of back Migraine headache Injury of head and neck Loss of consciousness Gastric reflux Smoker Leg cramps History of pain when walking History of edema Hx of hidradenitis suppurativa Personal history of Methicillin resistant Staphylococcus aureus infection Right axillary hidradenitis Arthritis Smoker DM type 2 (diabetes mellitus, type 2) Home Medications ?Medication ?Instructions ?Recorded ?Last Taken ?Type carvedilol 12.5 mg tablet 12.5 mg PO BIDCM #60 tabs 05/21/25 Unknown Rx furosemide 20 mg tablet 60 mg (3 x 20 mg) PO DAILY #90 tabs 05/21/25 Unknown Rx gabapentin 100 mg capsule 200 mg (2 x 100 mg) PO Q8H PRN PRN 05/21/25 Unknown Rx leg discomfort #180 caps hydralazine 25 mg tablet 50 mg (2 x 25 mg) PO TID #180 tabs 05/21/25 Unknown Rx insulin glargine-yfgn 100 unit/mL 20 unit (0.2 mL) subcut DAILY #5 mL 05/21/25 Unknown Rx (3 mL) subcutaneous pen Allergy/AdvReac Type Severity Reaction Status Date / Time hydrocodone bitartrate (From AdvReac Vomiting Verified 06/21/25 16:47 Vicodin) hydromorphone HCl (From AdvReac Other Verified 06/21/25 16:47 Dilaudid) tramadol AdvReac Other Verified 06/21/25 16:47 Family History Other Diabetes Surgical History Hx of tooth extraction History of cystoscopy Hidradenitis Social History household members: none Smoking Status: Current every day smoker tobacco type: cigars second hand exposure: Yes alcohol intake: former substance use type: marijuana additional social history: Does Not Take Aspirin Does Take Ibuprofen As Needed ROS ROS ED Review of Systems ROS Unobtainable: other Constitutional Constitutional ED: Reports lethargy; Denies chills, fever(s), sweats or weight loss Eyes Eyes: Denies blurry vision, change in vision or diplopia ENT ENT ED: Denies rhinorrhea or sore throat Cardiovascular Cardiovascular: Denies chest pain, orthopnea or racing heartbeat Respiratory/Chest Respiratory/Chest: Reports dyspnea and dyspnea on exertion; Denies cough, orthopnea or sputum Gastrointestinal Gastrointestinal: Denies abdominal pain, diarrhea, nausea or vomiting Genitourinary Genitourinary ED: Denies dysuria, hematuria or urinary frequency Musculoskeletal Musculoskeletal: Denies arthralgias, back pain, myalgias or neck pain Integumentary Denies abscess, Abrasions or rash Neurologic Neurologic: Denies headache(s) or weakness Psychiatric Psychiatric: Denies anxiety, depression or suicidal thoughts Endocrine Endocrinology: Denies polydipsia, polyphagia or polyuria Hematologic/Lymphatic Hematologic/Lymphatic: Denies easy bleeding, easy bruising or lymphadenopathy Allergic/Immunologic Allergic/Immunologic ED: Denies mouth swelling, tongue swelling or urticaria EXAM Physical Exam Const Vital Signs: 06/21/25 16:47 06/21/25 16:50 06/21/25 16:50 Temperature 97.5 F L Temperature Source Temporal Pulse Rate 123 H 128 H Respiratory Rate 34 H Respiratory Effort Short of Breath Labored Respiratory Depth Shallow Respiratory Pattern Tachypnea Blood Pressure 166/142 H 221/125 H Blood Pressure Mean 150 157 Pulse Ox 100 Oxygen Delivery Method Bi-pap Non-Rebreather Oxygen Flow Rate (L/min) 15 Fraction of Inspired Oxygen (FIO2) 06/21/25 17:04 06/21/25 17:15 06/21/25 17:20 Temperature Temperature Source Pulse Rate 129 H 130 H Respiratory Rate 32 H Respiratory Effort Respiratory Depth Respiratory Pattern Blood Pressure 190/127 H Blood Pressure Mean 148 Pulse Ox 100 Oxygen Delivery Method Non-Rebreather Oxygen Flow Rate (L/min) Fraction of Inspired Oxygen (FIO2) 50 06/21/25 17:22 06/21/25 17:25 06/21/25 17:30 Temperature Temperature Source Pulse Rate 132 H 127 H Respiratory Rate 35 H 30 H Respiratory Effort Respiratory Depth Respiratory Pattern Blood Pressure 190/127 H 200/139 H 197/148 H Blood Pressure Mean 148 159 164 Pulse Ox 100 97 Oxygen Delivery Method Non-Rebreather Bi-pap Oxygen Flow Rate (L/min) Fraction of Inspired Oxygen (FIO2) 06/21/25 17:30 06/21/25 17:36 06/21/25 17:42 Temperature 97.5 F L Temperature Source Core Pulse Rate 127 H Respiratory Rate 31 H Respiratory Effort Respiratory Depth Respiratory Pattern Blood Pressure 197/148 H 194/141 H 178/140 H Blood Pressure Mean 164 158 152 Pulse Ox 100 Oxygen Delivery Method Non-Rebreather Oxygen Flow Rate (L/min) Fraction of Inspired Oxygen (FIO2) Positive well nourished and well developed General Appearance ED: well developed and NAD HEENT Reports TM's clear and moist mucous membranes normocephalic and atraumatic; Negative for trauma or tenderness Tympanic Membrane ED: Yes TM's clear Eyes PERRL and EOMs intact bilaterally General Eye ED: Negative for pale conjunctiva or scleral icterus Neck no lymphadenopathy, supple and no JVD General: Negative for tenderness Chest Wall inspection of chest normal and palpation of chest normal Chest: Negative for tenderness Resp normal respiratory effort and clear to auscultation bilaterally Resp Narrative: Patient tachypneic with rales in the bases bilaterally.. Mild conversational dyspnea. Effort and Inspection: Negative for respiratory distress or pain with movement Auscultation: rales; Negative for rhonchi, wheezes or diminished lung sounds Cardio regular rate, regular rhythm, S1 normal heart sound, S2 normal heart sound and no murmurs Peripheral Pulses: pulses 2+ throughout GI normal to inspection, nondistended, normoactive bowel sounds, soft to palpation, non-tender, non-distended and no masses Back/Spine no CVA tenderness and no thoracic nor lumbar tenderness Extremity normal to inspection Extremity Narrative: Diffuse edema of the upper and lower extremities as well as the abdomen. General Extremety ED: Yes edema General Extremity: edema Neuro oriented x3, CN's II-XII intact bilaterally, no sensory deficits noted and gait normal Sensorium / Orientation: awake, alert, oriented to person, oriented to place and oriented to time Motor Exam: strength 5/5 throughout and strength abnormal Psych mental status grossly normal Skin no rashes or lesions noted and no wounds MDM MDM MDM Narrative Medical decision making narrative: Patient presents with dyspnea with history of CHF and admission last month for same. Patient tachypneic and exam consistent with CHF as she is very edematous. IV line established. Stat chest x-ray obtained showed cardiomegaly with vascular congestion and bilateral pleural effusions. Patient was ordered morphine and Zofran as well as Lasix 80 mg IV. She was started on nitro drip. Marquez catheter was placed. CBC with differential obtained showed a white count of 10.1 with hemoglobin 9.4 and platelet count of 420. Chemistries showed sodium 139 with potassium 4.4 chloride 106. BUN 32 and creat 3.03. Troponin elevated 195 however she is chronically elevated and has evidence of acute kidney injury. Patient also has a glucose of 325. Patient was feeling improved after time on BiPAP and started making urine. Discussed case with hospitalist will evaluate patient for admission to the ICU. Lab Data Attestation: I reviewed the patient's lab results. Labs: Laboratory Results - last 24 hr 06/21/25 06/21/25 16:54 17:05 WBC 10.1 RBC 3.35 L Hgb 9.4 L Hct 29.5 L MCV 88.1 MCH 28.1 MCHC 31.9 L RDW Std Deviation 42.6 RDW Coeff of Giselle 13.2 Plt Count 420 MPV 11.0 Immature Gran % (Auto) 0.400 Neut % (Auto) 75.1 H Lymph % (Auto) 19.0 Edmunds % (Auto) 3.9 Eos % (Auto) 0.9 Baso % (Auto) 0.7 Absolute Neuts (auto) 7.6 Absolute Lymphs (auto) 1.92 Nucleated RBC % 0 Sodium 139 Potassium 4.4 Chloride 106 Carbon Dioxide 21.8 Anion Gap 12 BUN 32 H Creatinine 3.03 H Estim Creat Clear Calc 25.50 L Est GFR (MDRD) Non-Af 19 L BUN/Creatinine Ratio 10.5 Glucose 325 H Calcium 7.8 Troponin T High Sens 195 H* D POC Glucose 301 H ABG Data ABG results: ABG 06/21/25 17:14 Specimen Type RODRIGUE Sample Site Not entered VBG pH 7.26 L VBG pO2 41 H VBG HCO3 24 VBG Total CO2 26 VBG O2 Sat (Calc) 67 VBG Base Excess -3 L POC Mix VBG pCO2 Pt Tmp 54.3 H O2 Delivery Device Not entered Radiography Diagnostic Testing: Clinical Impression(s) from Imaging Studies Chest X-Ray 06/21/25 17:08 IMPRESSION: Pulmonary findings as above. Reading Location: [facility] 1 view chest x-ray obtained interpreted by myself as cardiomegaly with CHF. Bilateral pleural effusions. Radiology in agreement. Radiology could not rule out infectious process. EKG Initial EKG: Attestation: I personally reviewed and interpreted this EKG as follows: Comments: Sinus rhythm with ventricular rate of [address] changes Critical Care Time Critical care time (excluding procedures): 30-74 minutes, Including time spent:, Discussing w/Patient &/or Family/Emblem Cutter, Discussing w/Consultants, Arranging Admission or Transfer, Performing Direct Patient Care at Bedside and - (30 minutes) Discharge Plan Dx/Rx/DC Orders Clinical Impression: Respiratory failure, CHF (congestive heart failure), Hypertensive emergency, Chronic kidney disease, Hyperglycemia Disposition Disposition: Acute Care [facility]
--- NOTE | 2025-06-21 17:08 | RAD_ITS ---
PROCEDURE: CHEST 1 VIEW (PORTABLE) 06/21/2025 REASON FOR EXAM: DYSPNEA TECHNIQUE: Frontal view of the chest. COMPARISON: 05/20/2025. FINDINGS: The heart borders are obscured. Ill-defined opacities lung bases with vascular indistinctness in a pattern favoring edema. Infection is possible. Moderate right pleural effusion and small left pleural effusion. No acute osseous abnormalities. RAD/Chest 1 View (Portable) IMPRESSION: Pulmonary findings as above. [facility]
[2025-06-21 17:15] LABS: Hematocrit 29.5 % (37-47); Hemoglobin 9.4 g/dL (12.0-15.0); Immature Granulocytes Count 0.040 X10^3/uL (0.0-0.0); Mean Corp Hgb Conc 31.9 g/dL (32-36); Mean Corpuscular Volume 88.1 fL (81-99); Mean Platelet Vol. 11.0 fl (6.2-12.0); NRBC Flagged by Analyzer 0 % (0-5); Platelet Count 420 K/mm3 (150-450); RBC Distribution Width CV 13.2 % (11.6-14.6); RBC Distribution Width SD 42.6 fl (35.1-43.9); Red Blood Count 3.35 M/mm3 (4.2-5.4); White Blood Count 10.1 K/mm3 (4.4-11.0)
[2025-06-21 17:17] LABS: SITE Not entered; VBG BASE EXCESS -3 mmol/L (-1.0-3.5); VBG PO2 41 mmHg (25-40); VBG SO2 67 % (50-70); VBG TCO2 26 mmol/L (23-33)
[2025-06-21] MEDS: Nitroglycerin Infusion 250 ML 3 MG CONT INF (17:20)
--- OUTSIDE RECORDS SUMMARY | 2025-06-21 17:30 | XMS RPT_ITS | CCD ---
Author Organization [facility] Inform ion [facility] Care Team Providers Care Head Of Talent Management Name Role Phone Pierce Pemberton MD Unavailable Porsha Salas Unavailable Unavailable Joey Bradshaw MD Primary Care Provider Joey Bradshaw MD Primary Care Provider Riya Silverio DO Primary Care Provider Anastasiia Joaquin MD Unavailable Care Physician, No Primary Primary Care Provider [...] [HYDROCODONE-ACET AMINOPHEN] Drug Allergy 3 GI Upset [facility] Other [facility] (10 sources) HYDROmorphone; Translations: [HYDROMORPHONE (BULK)] Drug Allergy 3 Mental Status Change [facility] Repository (14 sources) traMADol; Translations: [TRAMADOL] Drug Allergy 6 Other: See Comments [facility] Repository Comment on above: HEART RACING (4 sources) HYDROcodone; Translations: [hydrocodone bitartrate] Drug Allergy 2 Vomiting [facility] (4 sources) HYDROmorphone; Translations: [hydromorphone HCl] Drug Allergy 2 Other [facility] Medications Current Medications Medication Drug Class(es) [...] One tablet by mouth daily AMITRIPTYLINE HCL [id number] Austin Bello DO Comment on above: Take [...] on above: Take [address] [facility] one time a week. doxycycline monohydrate 100 [...] tablet by mouth twice daily DOXYCYCLINE HYCLATE [id number] Natacha Alfred LPN Start: 04-21-2013 End: 05-15-2013 take 1 capsule by mouth twice daily Doxycycline Hyclate 100 MG capsule Discontinued 100 mg PO TWICE A DAY April 21, 2013 12:00am May 15, 2013 1:37pm Start: 03-14-2012 End: 08-27-2012 take 1 tablet by mouth twice daily VIBRAMYCIN 100 MG CAPS One tablet by mouth twice daily DOXYCYCLINE HYCLATE [id number] Pierce Pemberton MD Start: 03-14-2012 End: 08-27-2012 take 1 tablet by mouth twice daily VIBRAMYCIN 100 MG CAPS One tablet by mouth twice daily DOXYCYCLINE HYCLATE [id number] Pierce Pemberton MD Start: 06-08-2011 End: 08-27-2012 take 1 tablet by mouth once daily at mealtime DOXYCYCLINE HYCLATE 100 MG TABS 1 tab by mouth daily with food. DOXYCYCLINE HYCLATE [id number] Pierce Pemberton MD Comment on above: Take [address] [facility] twice daily. ibuprofen 600 mg oral tablet [...] twice daily as needed for pain IBUPROFEN [id number] Pierce Pemberton MD Comment on above: Take [...] glargine LANTUS 100 UNIT/ML SOLN INSULIN GLARGINE [id number] Pierce Pemberton MD 08-26-2013 [facility] ([id number]) 08/26/2013 Active Start: 08-26-2013 LANTUS 100 UNI T/ML SOLN INSULIN GLARGINE [id number] Pierce Pemberton MD Comment on above: insulin glargine PORFIRIO TUS 100 UNIT/ML SOLN INSULIN GLARGINE [id number] Pierce Pemberton MD 08-26-2013 [facility] ([id number]) Inject 13 Units subc utaneously twice daily. [...] Two tablets by mouth daily METFORMIN HCL [id number] Austin Bello DO take 1 tablet by greg th twice daily METFORMIN HCL ER (OSM) 1000 MG [id number] One tablet by mouth twice daily METFORMIN HCL 76984183950 Pierce Pemberton MD take 1 tablet by greg th twice daily METFORMIN HCL ER (OSM) 1000 MG [id number] One tablet by mouth twice daily METFORMIN HCL 08358271906 Pierce Pemberton MD Comment on above: Take [...] One tablet by mouth twice daily SULFAMETHOXAZOLE-TRIMETHOPRIM [id number] Natacha Alfred LPN Start: 08-27-2012 take 1 tablet by greg th twice daily BACTRIM DS 800-160 MG TABS One tablet by mouth twice daily SULFAMETHOXAZOLE-TRIMETHOPRIM [id number] Pierce Pemberton MD Start: 08-27-2012 End: 07-14-2014 take 1 tablet by mouth twice daily BACTRIM DS 800-160 MG TABS One tablet by mouth twice daily SULFAMETHOXAZOLE-TRIMETHOPRIM 46032287405 Natacha Alfred LPN Completed/Discontinued Medications Medication Drug [...] mouth daily as needed for pain OXYCODONE-ACETAMINOPHEN [id number] Pierce Pemberton MD Start: 07-12-2015 End: 03-07-2017 take 1 tablet by mouth once daily as needed for pain PERCOCET 7.5-325 MG TABS One tablet by mouth daily as needed for pain OXYCODONE-ACETAMINOPHEN 79060847501 Natacha Alfred LPN Start: 07-12-2015 take 1 tablet by greg th once daily as needed for pain PERCOCET 7.5-325 MG TABS One tablet by mouth daily as needed for pain OXYCODONE-ACETAMINOPHEN [id number] Pierce Pemberton MD Start: 01-22-2015 End: 03-07-2017 take 1 tablet by mouth twice daily as needed for pain PERCOCET 7.5-325 MG TABS One tablet by mouth twice daily as needed for pain OXYCODONE-ACETAMINOPHEN [id number] Pierce Pemberton MD Start: 01-22-2015 End: 03-07-2017 take 1 tablet by mouth twice daily as needed for pain PERCOCET 7.5-325 MG TABS One tablet by mouth twice daily as needed for pain OXYCODONE-ACETAMINOPHEN 37659580596 Natacha Alfred LPN Start: 01-22-2015 take 1 tablet by greg th twice daily as needed for pain PERCOCET 7.5-325 MG TABS One tablet by mouth twice daily as needed for pain OXYCODONE-ACETAMINOPHEN 76556915320 Pierce Pemberton MD Start: 11-20-2014 End: 03-07-2017 take 1-2 tablets by mouth four times daily as needed for pain PERCOCET 7.5-325 MG TABS one to two tablets by mouth four times daily as needed for pain OXYCODONE-ACETAMINOPHEN 25893493225 Natacha Alfred LPN Start: 11-20-2014 take 1-2 tablets by mouth four times daily as needed for pain PERCOCET 7.5-325 MG TABS one to two tablets by mouth four times daily as needed for pain OXYCODONE-ACETAMINOPHEN [id number] Pierce Pemberton MD Start: 10-29-2014 End: 03-07-2017 take 1-2 tablets by mouth four times daily as needed for pain PERCOCET 5-325 MG TABS one to two tablet s by mouth four times daily as needed for pain OXYCODONE-ACETAMINOPHEN [id number] Natacha Alfred LPN Start: 10-29-2014 take 1-2 tablets by mouth four times daily as needed for pain PERCOCET 5-325 MG TABS one to two tablet s by mouth four times daily as needed for pain OXYCODONE-ACETAMINOPHEN [id number] Pierce Pemberton MD Start: 10-21-2014 End: 03-07-2017 take 1-2 tablets by mouth four times daily as needed for pain PERCOCET 7.5-325 MG TABS one to two tablets by mouth four times daily as needed for pain OXYCODONE-ACETAMINOPHEN 85761940829 Natacha Alfred LPN Start: 10-21-2014 End: 03-07-2017 take 1-2 tablets by mouth four times daily as needed for pain PERCOCET 7.5-325 MG TABS one to two tablets by mouth four times daily as needed for MODERATE pain OXYCODONE-ACETAMINOPHEN 70497200014 Natacha Alfred LPN Start: 10-21-2014 take 1-2 tablets by mouth four times daily as needed for pain PERCOCET 7.5-325 MG TABS one to two tablets by mouth four times daily as needed for MODERATE pain OXYCODONE-ACETAMINOPHEN 30291903471 Pierec Pemberton MD Start: 07-29-2014 End: 03-07-2017 take 1-2 tablets by mouth four times daily as needed for pain PERCOCET 5-325 MG TABS one to two tablet s by mouth four times daily as needed for pain OXYCODONE-ACETAMINOPHEN 15684530131 Natacha Alfred LPN Start: 07-29-2014 take 1-2 tablets by mouth four times daily as needed for pain PERCOCET 5-325 MG TABS one to two tablet s by mouth four times daily as needed for pain OXYCODONE-ACETAMINOPHEN [id number] Pierce Pemberton MD Start: 07-22-2014 End: 07-12-2015 take 1-2 tablets by mouth four times daily as needed for pain PERCOCET 5-325 MG TABS one to two tablet s by mouth four times daily as needed for pain OXYCODONE-ACETAMINOPHEN 55308406552 Natacha Alfred LPN Start: 07-22-2014 take 1-2 tablets by mouth four times daily as needed for pain PERCOCET 5-325 MG TABS one to two tablet s by mouth four times daily as needed for pain OXYCODONE-ACETAMINOPHEN 17264569229 Pierce Pemberton MD Start: 07-14-2014 take 1 tablet by greg th four times daily as needed for pain PERCOCET 5-325 MG TABS One tablet by mouth four times daily as needed for pain OXYCODONE-ACETAMINOPHEN 54153505723 Pierce Pemberton MD Start: 07-14-2014 End: 07-12-2015 take 1 tablet by mouth four times daily as needed for pain PERCOCET 5-325 MG TABS One tablet by mouth four times daily as needed for pain OXYCODONE-ACETAMINOPHEN 10382656290 Natacha Alfred LPN Start: 06-01-2013 End: 07-12-2013 [...] times daily as needed for pain OXYCODONE-ACETAMINOPHEN [id number] Pierce Pemberton MD Start: 08-27-2012 End: 08-26-2013 take 1-2 tablets by mouth four times daily as needed for pain PERCOCET 5-325 MG TABS one to two tablet s by mouth four times daily as needed for pain OXYCODONE-ACETAMINOPHEN 10232017437 Pierce Pemberton MD Start: 03-14-2012 End: 03-07-2017 take 1-2 tablets by mouth four times daily as needed for pain PERCOCET 5-325 MG TABS one to two tablet s by mouth four times daily as needed for pain OXYCODONE-ACETAMINOPHEN 66525577197 Natacha Giang Alfred BRE Start: 03-14-2012 take 1-2 tablets by mouth four times daily as needed for pain PERCOCET 5-325 MG TABS one to two tablet s by mouth four times daily as needed for pain OXYCODONE-ACETAMINOPHEN 14433548635 Pierce Pemberton MD Start: 03-14-2012 End: 08-27-2012 take 1-2 tablets by mouth four times daily as needed for pain PERCOCET 5-325 MG TABS one to two tablet s by mouth four times daily as needed for pain OXYCODONE-ACETAMINOPHEN 50664094986 Pierce Pemberton MD End: 08-27-2012 PERCOCET 5-325 MG TABS One t ablet by mouth six times daily, as needed OXYCODONE-ACETAMINOPHEN 94490789098 Austin Bello DO PERCOCET 5-325 M G TABS One tablet by mouth six times daily, as needed OXYCODONE-ACETAMINOPHEN 80578989399 Austin Bello DO End: 08-27-2012 PERCOCET 5-325 MG TABS One t ablet by mouth six times daily, as needed OXYCODONE-ACETAMINOPHEN 34313862015 Pierce Pemberton MD apple cider vinegar 500 [...] tablet by mouth twice daily CIPROFLOXACIN HCL 21532774477 Natacha Alfred LPN clindamycin 300 mg oral [...] LOTN apply twi ce daily CLINDAMYCIN PHOSPHATE [id number] Austin Bello DO End: 07-12-2015 CLINDAMYCIN HCL CAPS CLINDAM YCIN HCL CAPS 92994222443 Natacha Alfred LPN CLINDAMYCIN HCL CAPS CLINDAMYCIN HCL CAPS 70934356873 Natacha Rahat Alfred LPN End: 08-27-2012 CLEOCIN-T 1 % LOTN apply twi ce daily CLINDAMYCIN PHOSPHATE 31589076314 Pierce Pemberton MD CLEOCIN-T 1 % LO TN apply twice daily CLINDAMYCIN PHOSPHATE 18983119990 Austin Bello DO diazePAM 5 mg oral tablet (13 sources) Benzodiazepine Start: 07-29-2014 End: 03-07-2017 take 1 tablet by mouth four times daily as needed for muscle spasms VALIUM 5 MG TABS One tablet by mouth four times daily as needed for spasm DIAZEPAM [id number] Pierce Pemberton MD docusate sodium 100 mg oral capsule (20 sources) Start: 09-24-2019 End: 01-25-2021 take 1 capsule by mouth once daily Docusate Sodium 100 MG capsule Discontinued 100 mg PO DAILY September 24, 2019 12:00am January 25, 2021 3:47pm Start: 10-21-2014 End: 03-07-2017 take 1 tablet by mouth twice daily COLACE 100 MG CAPS One tablet by mouth twice daily DOCUSATE SODIUM 14260814220 Natacha Alfred LPN Start: 10-21-2014 End: 03-07-2017 take 1 tablet by mouth twice daily COLACE 100 MG CAPS One tablet by mouth twice daily DOCUSATE SODIUM 50794141882 Natacha Alfred LPN take [address] [facility] once daily DOC-Q-LACE LIQD Two tablets by mouth daily DOCUSATE SODIUM LIQD 44130641392 Austin Bello DO End: 08-27-2012 take 2 tablets by mouth once daily DOC-Q-LACE LIQD Two tablets by mouth daily DOCUSATE SODIUM LIQD 03809374122 Pierce Pemberton MD DOCUSATE SODIUM LIQD (6 sources) End: 08-27-2012 take 2 tablets by mouth once daily DOC-Q-LACE LIQD Two tablets by mouth daily DOCUSATE SODIUM LIQD 11595367161 Pierce Pemberton MD take 2 tablets by mouth once john ly DOC-Q-LACE LIQD Two tablets by mouth daily DOCUSATE SODIUM LIQD 82092685041 Austin Bello DO ferrous sulfate 325 mg [...] TABS One tablet by mouth daily FLUCONAZOLE 66708720287 Natacha Alfred LPN Start: 06-01-2013 End: 07-12-2013 take 1 tablet by mouth once Fluconazole (Diflucan) 150 MG tablet Discontinued 150 mg PO ONE TIME June 01, 2013 1:00am July 12, 2013 3:51pm gabapentin 600 mg oral tablet (20 sources) Anti-epileptic Agent Start: 08-26-2013 take 2 tablets by mouth once daily NEURONTIN 600 MG TABS Two tablets by mouth daily GABAPENTIN 79424032070 Pierce Pemberton MD End: 08-27-2012 take 1 tablet by mouth once daily GABAPENTIN 600 MG TABS One tablet by mouth daily GABAPENTIN 79740400149 Pierce Pemberton MD End: 07-12-2015 GABAPENTIN CAPS GABAPENTIN C APS 47255959804 Natacha Alfred LPN GABAPENTIN CAPS GABAPENTIN CAPS 31373960657 Natacha Alfred LPN HYDROmorphone hydrochloride 2 mg oral tablet (20 sources) Opioid Agonist Start: 03-29-2012 End: 03-07-2017 take 1-2 tablets by mouth four times daily as needed for pain DILAUDID 2 MG TABS one to two tablets by mouth four times daily as needed for pain HYDROMORPHONE HCL 56264931880 Pierce Pemberton MD INSULIN DETEMIR SOLN (7 sources) Insulin Analogue LEVEMIR FLEXPEN SOPN INSULIN DETEMIR SOLN 51734121055 Austin Bello DO LEVEMIR FLEXPEN SOLN INSULIN DETEMIR SOLN 51546800082 Austin D Bello DO 3 ml insulin lispro 100 unt/ml pen injector (14 sources) Insulin Analogue End: 08-27-2012 HUMALOG KWIKPEN SOLN INSULIN LISPRO (HUMAN) SOLN 21123629547 Pierce Pemberton MD HUMALOG KWIKPEN SOLN INSULIN LISPRO (HUMAN) SOLN [id number] Austin D Bello DO End: 08-27-2012 HUMALOG KWIKPEN SOLN INSULIN LISPRO (HUMAN) SOLN 68795149883 Pierce Pemberton MD lactobacillus (14 sources) Start: 07-22-2014 End: 07-12-2015 take 1 tablet by mouth twice daily ACIDOPHILUS PROBIOTIC TABS One tablet by mouth twice daily LACTOBACILLUS 31748755288 Natacha Alfred LPN Start: 07-22-2014 take 1 tablet by greg th twice daily ACIDOPHILUS PROBIOTIC TABS One tablet by mouth twice daily LACTOBACILLUS 74625149236 Pierce Pemberton MD Start: 07-22-2014 End: 07-12-2015 take 1 tablet by mouth twice daily ACIDOPHILUS PROBIOTIC TABS One tablet by mouth twice daily LACTOBACILLUS 37720332958 Natacha Rahat Alfred LPN Start: 07-22-2014 take 1 tablet by greg th twice daily ACIDOPHILUS PROBIOTIC TABS One tablet by mouth twice daily LACTOBACILLUS 54669552120 Pierce Pemberton MD levoFLOXacin 500 mg oral tablet (13 sources) Quinolone Antimicrobial Start: 10-21-2014 End: 03-07-2017 take 1 tablet by mouth once daily LEVAQUIN 500 MG TABS One tablet by mouth daily LEVOFLOXACIN 32987183870 Natacha Alfred LPN metroNIDAZOLE 500 mg oral tablet (20 sources) Nitroimidazole Antimicrobial Start: 03-28-2012 End: 07-12-2015 take 1 tablet by mouth three times daily FLAGYL 500 MG TABS One tablet by mouth three times daily METRONIDAZOLE 00525651554 Pierce Pemberton MD minocycline 100 mg oral tablet (14 sources) Tetracycline-class Drug Start: 07-24-2014 End: 07-12-2015 take 1 tablet by mouth twice daily MINOCYCLINE HCL 100 MG TABS One tablet by mouth twice daily MINOCYCLINE HCL 82558368097 Pierce Pmeberton MD naproxen 500 mg oral tablet (9 [...] daily as needed for nausea PROMETHAZINE HCL 87035406739 Natacha Alfred LPN vitamin B12 (3 sources) [...] Mult Confirmon 05-07-2025 ANTI-DNA (DS)AB TNP Normal [facility] Comment on above: Performed By: #### L 501.5200, L100.0100, L500.4050 #### [facility] [address] [place], [address] ANTI-SS-A TNP Normal [facility] Comment on above: Performed By: #### L 501.5200, L100.0100, L500.4050 #### [facility] [address] [place], [address] ANTI-SS-B TNP Normal [facility] Comment on above: Performed By: #### L 501.5200, L100.0100, L500.4050 #### [facility] [address] [place], [address] ANCAon 05-07-2025 Atypical pANCA <1:20 Normal Neg:<1:20 [facility] Comment on above: Result Comment: The atypical pANCA pattern has been observed in a significant percentage of patients with ulcerative colitis, primary sclerosing cholangitis and autoimmune hepatitis. Performed at: [address] [id number] Talent Acquisition Manager: Trey Arias PhD, Phone: [phone] Performed By: #### L 501.5200, L100.0100, L500.4050 #### [facility] [address] [place], [address] Cytoplasmic Ab <1:20 Normal Neg:<1:20 [facility] Comment on above: Performed By: #### L 501.5200, L100.0100, L500.4050 #### [facility] [address] [place], [address] Perinuclear Ab. <1:20 Normal Neg:<1:20 [facility] Comment on above: Result Comment: The presence of positive fluorescence exhibiting P-ANCA or C-ANCA patterns alone is not specific for the diagnosis of Kel's Granulomatosis (WG) or microscopic polyangiitis. Decisions about treatment should not be based solely on ANCA IFA results. The International ANCA Group Consensus recommends follow up testing of positive sera with both DE- 3 and MPO-ANCA enzyme immunoassays. As many as 5% serum samples are positive only by EIA. Ref. AM J Clin Pathol 1999;111:507-513. Performed By: #### L 501.5200, L100.0100, L500.4050 #### [facility] [address] [place], [address] Urine Cultureon 05-07-2025 URC Escherichia coli Larned Count >100,000 Escherichia coli: REACTION Ampicillin Islt [...] TMP SMX Islt FLORINDA <=20 S Normal [facility] Comment on above: Performed By: #### L 400.0001 #### [facility] [address] [facility] [place], [address] CBC W/Diff, Automatedon Absolute Neut Normal 2.0-7.7 [facility] Comment on above: Result Comment: Canc elled via OM: Order cancelled - Patient discharged Performed By: #### L 100.0100, L500.4050 #### [facility] [address] [place], [address] HCT Normal 37-47 [facility] Comment on above: Result Comment: Canc elled via OM: Order cancelled - Patient discharged Performed By: #### L 100.0100, L500.4050 #### [facility] [address] [place], [address] HGB Normal 12.0-15.0 [facility] Comment on above: Result Comment: Canc elled via OM: Order cancelled - Patient discharged Performed By: #### L 100.0100, L500.4050 #### [facility] [address] [place], [address] MCH Normal 27.0-32.0 [facility] Comment on above: Result Comment: Canc elled via OM: Order cancelled - Patient discharged Performed By: #### L 100.0100, L500.4050 #### [facility] [address] [place], [address] MCHC Normal 32-36 [facility] Comment on above: Result Comment: Canc elled via OM: Order cancelled - Patient discharged Performed By: #### L 100.0100, L500.4050 #### [facility] [address] [place], [address] MCV Normal 81-99 [facility] Comment on above: Result Comment: Canc elled via OM: Order cancelled - Patient discharged Performed By: #### L 100.0100, L500.4050 #### [facility] [address] [place], [address] NEUT% Normal 47-70 [facility] Comment on above: Result Comment: Canc elled via OM: Order cancelled - Patient discharged Performed By: #### L 100.0100, L500.4050 #### [facility] [address] [place], [address] PLT Normal 150-450 [facility] Comment on above: Result Comment: Canc elled via OM: Order cancelled - Patient discharged Performed By: #### L 100.0100, L500.4050 #### [facility] [address] [place], [address] RBC Normal 4.2-5.4 [facility] Comment on above: Result Comment: Canc elled via OM: Order cancelled - Patient discharged Performed By: #### L 100.0100, L500.4050 #### [facility] [address] [place], [address] RDW CV Normal 11.6-14.6 [facility] Comment on above: Result Comment: Canc elled via OM: Order cancelled - Patient discharged Performed By: #### L 100.0100, L500.4050 #### [facility] [address] [place], [address] RDW SD Normal 35.1-43.9 [facility] Comment on above: Result Comment: Canc elled via OM: Order cancelled - Patient discharged Performed By: #### L 100.0100, L500.4050 #### [facility] [address] [place], [address] WBC Normal 4.4-11.0 [facility] Comment on above: Result Comment: Canc elled via OM: Order cancelled - Patient discharged Performed By: #### L 100.0100, L500.4050 #### [facility] [address] [place], [address] Comprehensive Metabolic Prof ilon 05-06-2025 ALB Normal 3.5-5.0 [facility] Comment on above: Result Comment: Canc elled via OM: Order cancelled - Patient discharged Performed By: #### L 100.0100, L500.4050 #### [facility] [address] [place], [address] ALK PHOS Normal 35-104 [facility] Comment on above: Result Comment: Canc elled via OM: Order cancelled - Patient discharged Performed By: #### L 100.0100, L500.4050 #### [facility] [address] [place], [address] ALT Normal <=34 [facility] Comment on above: Result Comment: Canc elled via OM: Order cancelled - Patient discharged Performed By: #### L 100.0100, L500.4050 #### [facility] [address] [place], [address] AST Normal <=31 [facility] Comment on above: Result Comment: Canc elled via OM: Order cancelled - Patient discharged Performed By: #### L 100.0100, L500.4050 #### [facility] [address] [place], [address] BUN Normal 4-19 [facility] Comment on above: Result Comment: Canc elled via OM: Order cancelled - Patient discharged Performed By: #### L 100.0100, L500.4050 #### [facility] [address] [place], [address] BUN/CRE Normal 10-20 [facility] Comment on above: Result Comment: Canc elled via OM: Order cancelled - Patient discharged Performed By: #### L 100.0100, L500.4050 #### [facility] [address] [place], [address] Calcium Normal 7.6-11.0 [facility] Comment on above: Result Comment: Canc elled via OM: Order cancelled - Patient discharged Performed By: #### L 100.0100, L500.4050 #### [facility] [address] [place], [address] CL Normal 98-108 [facility] Comment on above: Result Comment: Canc elled via OM: Order cancelled - Patient discharged Performed By: #### L 100.0100, L500.4050 #### [facility] [address] [place], [address] CO2 Normal 21.0-32.0 [facility] Comment on above: Result Comment: Canc elled via OM: Order cancelled - Patient discharged Performed By: #### L 100.0100, L500.4050 #### [facility] [address] [place], [address] CREAT,SERUM Normal 0.70-1.20 [facility] Comment on above: Result Comment: Canc elled via OM: Order cancelled - Patient discharged Performed By: #### L 100.0100, L500.4050 #### [facility] [address] [place], [address] eGFR Normal >60 [facility] Comment on above: Result Comment: Canc elled via OM: Order cancelled - Patient discharged Performed By: #### L 100.0100, L500.4050 #### [facility] [address] [place], [address] GAP Normal 5-15 [facility] Comment on above: Result Comment: Canc elled via OM: Order cancelled - Patient discharged Performed By: #### L 100.0100, L500.4050 #### [facility] [address] [place], [address] GLU Normal 70-99 [facility] Comment on above: Result Comment: Canc elled via OM: Order cancelled - Patient discharged Performed By: #### L 100.0100, L500.4050 #### [facility] [address] [place], [address] Potassium Normal 3.3-5.1 [facility] Comment on above: Result Comment: Canc elled via OM: Order cancelled - Patient discharged Performed By: #### L 100.0100, L500.4050 #### [facility] [address] [place], [address] T BILI Normal 0.00-1.30 [facility] [facility] Comment on above: Result Comment: Canc elled via OM: Order cancelled - Patient discharged Performed By: #### L 100.0100, L500.4050 #### [facility] [address] [place], [address] T PROT Normal 5.9-8.4 [facility] Comment on above: Result Comment: Canc elled via OM: Order cancelled - Patient discharged Performed By: #### L 100.0100, L500.4050 #### [facility] [address] [place], [address] Comprehensive Metabolic Profil Normal 133-145 [facility] Comment on above: Result Comment: Canc elled via OM: Order cancelled - Patient discharged Performed By: #### L 100.0100, L500.4050 #### [facility] [address] [place], [address] 12 Lead EKGon 05-05-2025 12 Lead EKG [facility] Services [address] [place] [address] 12 Lead EKG 05/05/25 0547 MR#: [id number] Acct: [id number] Name: MINDY FAULKNER Rep #: [id number] : 1980 44 From: Lopez Polanco MD Attending Dr: Dr. Mariam Murry MD Status: DIS IN Ordering Dr: Taran Ortega DO Date: 05/05/25 Location: [facility] Sex: F AA Admitted: 05/05/25 Test Reason : CP Blood Pressure : */* mmHG Vent. Rate : 122 BPM Atrial Rate : 122 BPM P-R Int : 142 ms QRS Dur : 76 ms QT Int : 322 ms P-R-T Axes : 49 85 67 degrees QTcB Int : 458 ms Sinus tachycardia Nonspecific T wave abnormality Abnormal ECG Confirmed by Lopez Polanco ([id number]), editor dictionary RENETTA FANG ([id number]) on 05/06/2025 12:34:40 PM Referred By: BITA Confirmed By: Lopez Polanco 05/06/25 1234 Date Lopez Polanco MD CC: Dr. Mariam Murry MD; Taran Ortega DO; No Primary Care Physician Signed Normal [facility] Basic Metabolic Profile (BMP )on 05-05-2025 BUN/CRE 12.6 RATIO Normal 10-20 [facility] Comment on above: Performed By: #### L 400.0001 #### [facility] [address] [place], [address] Calcium [Mass/Vol] 7.7 mg/dL Normal 7.6-11.0 [facility] Comment on above: Performed By: #### L 400.0001 #### [facility] [address] [place], [address] Chloride [Moles/Vol] 110 mmol/L High 98-108 [facility] Comment on above: Performed By: #### L 400.0001 #### [facility] [address] [place], [address] CO2 [Moles/Vol] 17.0 mmol/L Low 21.0-32.0 [facility] Comment on above: Performed By: ####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 [Moles/Vol] 99 mmol/L 98-108 [facility] Comprehensive Metabolic Prof ilon 09-23-2024 Albumin [Mass/Vol] 2.2 g/dL Low 3.5-5.0 [facility] Comment on above: Performed By: #### L 501.5200, L100.0100, L500.4050 #### [facility] [address] [place], [address] Albumin/Globulin [Mass ratio] 0.7 {ratio} Low 0.9-2.4 [facility] Comment on above: Performed By: #### L 501.5200, L100.0100, L500.4050 #### [facility] [address] [place], [address] ALK PHOS 73 U/L Normal 35-104 [facility] Comment on above: Performed By: #### L 501.5200, L100.0100, L500.4050 #### [facility] [address] [place], [address] ALT [Catalytic activity/Vol] 15 U/L Normal <=34 [facility] Comment on above: Performed By: #### L 501.5200, L100.0100, L500.4050 #### [facility] [address] [place], [address] AST [Catalytic activity/Vol] 21 U/L Normal <=31 [facility] Comment on above: Result Comment: Hemo lysis present, Results??could be affected. ?? Performed By: #### L 501.5200, L100.0100, L500.4050 #### [facility] [address] [place], [address] BUN/CRE 12.2 RATIO Normal 10-20 [facility] Comment on above: Performed By: #### L 501.5200, L100.0100, L500.4050 #### [facility] [address] [place], [address] Calcium [Mass/Vol] 8.1 mg/dL Normal 7.6-11.0 [facility] Comment on above: Performed By: #### L 501.5200, L100.0100, L500.4050 #### [facility] [address] [place], [address] Chloride [Moles/Vol] 99 mmol/L Normal 98-108 [facility] Comment on above: Performed By: #### L 501.5200, L100.0100, L500.4050 #### [facility] [address] [place], [address] CO2 [Moles/Vol] 24.2 mmol/L Normal 21.0-32.0 [facility] Comment on above: Performed By: #### L 501.5200, L100.0100, L500.4050 #### [facility] [address] [place], [address] Creatinine [Mass/Vol] 0.95 mg/dL Normal 0.70-1.20 [facility] Comment on above: Performed By: #### L 501.5200, L100.0100, L500.4050 #### [facility] [address] [place], [address] ECRCL 70.64 ml/min Normal 50-250 [facility] Comment on above: Performed By: #### L 501.5200, L100.0100, L500.4050 #### [facility] [address] [place], [address] GAP 9 Normal 5-15 [facility] Comment on above: Performed By: #### L 501.5200, L100.0100, L500.4050 #### [facility] [address] [place], [address] GFR/1.73 sq M.predicted among non-blacks MDRD (S/P/Bld) [Vol rate/Area] 75 mL/min/{1.73_m2} Normal >60 [facility] Comment on above: Result Comment: mL/m in/1.73m2 CKD-EPI Creatinine Equation (2020) Performed By: #### L 501.5200, L100.0100, L500.4050 #### [facility] [address] [place], [address] Globulin (S) [Mass/Vol] 3.3 g/dL Normal 2.2-4.2 [facility] Comment on above: Performed By: #### L 501.5200, L100.0100, L500.4050 #### [facility] [address] [place], [address] Glucose [Mass/Vol] 415 mg/dL High 70-99 [facility] Comment on above: Performed By: #### L 501.5200, L100.0100, L500.4050 #### [facility] [address] [place], [address] Potassium [Moles/Vol] 3.6 mmol/L Normal 3.3-5.1 [facility] Comment on above: Result Comment: Hemo lysis present, Results??could be affected. ?? Performed By: #### L 501.5200, L100.0100, L500.4050 #### [facility] [address] [place], [address] Sodium [Moles/Vol] 132 mmol/L Low 133-145 [facility] Comment on above: Performed By: #### L 501.5200, L100.0100, L500.4050 #### [facility] [address] [place], [address] T BILI < 0.15 Normal 0.00-1.30 [facility] Comment on above: Performed By: #### L 501.5200, L100.0100, L500.4050 #### [facility] [address] [place], [address] T PROT 5.6 g/dL Low 5.9-8.4 [facility] Comment on above: Performed By: #### L 501.5200, L100.0100, L500.4050 #### [facility] [address] [place], [address] Urea nitrogen [Mass/Vol] 12 mg/dL Normal 4-19 [facility] Comment on above: Performed By: #### L 501.5200, L100.0100, L500.4050 #### [facility] [address] [place], [address] Emergency Department Summary on 09-23-2024 Emergency Department Summary [facility] Medical Records Department [address] [place] [address] Emergency Department Summary 09/23/24 MR#: [id number] Acct: [id number] Name: MINDY FAULKNER Rep #: [id number] : 1980 44 From: Jose Garza DO [...] Does not see a primary care physician. [facility] Medical History Wears dentures Wears glasses [...] normal res (more content not included)... Normal [facility] Eosinophil percentageOrdered By: Jose Garza on 09-23-2024 Eosinophils/100 WBC (Bld) 2.9 % 0-5 [facility] Epithelial cells.squamous LM Ql (Urine sed)Ordered By: Jose Garza on 09-23-2024 Epithelial cells.squamous LM.HPF (Urine sed) [#/Area] 0 /[HPF] 5-10 [facility] Erythrocyte distribution wid th ratioOrdered By: Jose Garza on 09-23-2024 Erythrocyte distribution width (RBC) [Ratio] 12.0 % 11.6-14.6 [facility] Erythrocyte distribution wid th standard deviationOrdered By: Jose Garza on 09-23-2024 Erythrocyte distribution width (RBC) [Entitic vol] 37.6 fL 35.1-43.9 [facility] Estimation of creatinine nara aranceOrdered By: Jose Garza on 09-23-2024 Estimated Creatinine Clearance Calc 70.64 ml/min 50-250 [facility] GFR/1.73 sq M.predicted maira g non-blacks MDRD (S/P/Bld) [Vol rate/Area]Ordered By: Jose Garza on 09-23-2024 Estimated GFR (MDRD) Non-Af Amer 75 >60 [facility] Comment on above: mL/min/1.73m2 CKD-EP I Creatinine Equation (2020) Glucose Ql (U)Ordered By: Yadira Garza on 09-23-2024 Glucose (U) [Mass/Vol] 1000 mg/dL High Normal [facility] Hematocrit Auto (Bld) [Volum e fraction]Ordered By: Jose Garza on 09-23-2024 Hematocrit (Bld) [Volume fraction] 38.8 % 37-47 [facility] Hemoglobin measurementOrdere d By: Jose Garza on 09-23-2024 Hemoglobin (Bld) [Mass/Vol] 13.5 g/dL 12.0-15.0 [facility] Immature granulocytes/100 WB C Auto (Bld)Ordered By: Jose Garza on 09-23-2024 Immature granulocytes/100 WBC (Bld) 0.300 % 0.0-0.9 [facility] Comment on above: IG% - Immature Granu locytes (promyelocytes, myelocytes and metamyelocytes) > 1% indicates that a LEFT SHIFT is Present. Ketones Test strip Ql (U)Ord ered By: Jose Garza on 09-23-2024 Ketones Ql (U) 5 mg/dl High Negative [facility] - Chemistry and C hemistry - challengeOrdered By: Jose Garza on 09-23-2024 AST [Catalytic activity/Vol] 21 U/L <32 [facility] Comment on above: Hemolysis present, R esults could be affected. Lymphocytes Auto (Unsp spec) [#/Vol]Ordered By: Jose Garza on 09-23-2024 Lymphocytes (Bld) [#/Vol] 2.36 10*3/uL 0.83-4.51 [facility] Lymphocytes/100 WBC Auto (Un sp spec)Ordered By: Jose Garza on 09-23-2024 Lymphocytes/100 WBC (Bld) 35.8 % 19-41 [facility] MCV (mean corpuscular volume ) determinationOrdered By: Jose Garza on 09-23-2024 MCV (RBC) [Entitic vol] 85.7 fL 81-99 [facility] Magnesiumon 09-23-2024 Magnesium [Mass/Vol] 1.8 mg/dL Normal 1.5-2.2 [facility] Comment on above: Performed By: #### L 501.5200, L100.0100, L500.4050 #### [facility] [address] [place], [place], [id number] Magnesium (Unsp spec) [Mass/ Vol]Ordered By: Jose Garza on 09-23-2024 Magnesium [Mass/Vol] 1.8 mg/dL 1.5-2.2 [facility] Mean corpuscular hemoglobin (MCH) determinationOrdered By: Jose Garza on 09-23-2024 MCH (RBC) [Entitic mass] 29.8 pg 27.0-32.0 [facility] Mean corpuscular hemoglobin concentration (MCHC) determinationOrdered By: Jose Garza on 09-23-2024 MCHC (RBC) [Mass/Vol] 34.8 g/dL 32-36 [facility] Mean platelet volume determi nationOrdered By: Jose Garza on 09-23-2024 Platelet mean volume (Bld) [Entitic vol] 11.0 fL 6.2-12.0 [facility] Microscopic analysis of urin e for red blood cells (RBC)Ordered By: Jose Garza on 09-23-2024 Urine RBC 5-10 SEEN /hpf 0-5 [facility] Monocyte percentageOrdered B y: Jose Garza on 09-23-2024 Monocytes/100 WBC (Bld) 6.8 % 0-10 [facility] Mucus LM Ql (Urine sed)Order ed By: Jose Garza on 09-23-2024 Mucus Ql (Urine sed) RARE /hpf [facility] Neutrophil percentageOrdered By: Jose Garza on 09-23-2024 Neutrophils/100 WBC (Bld) 53.1 % 47-70 [facility] Nitrite Test strip Ql (U)Ord ered By: Jose Garza on 09-23-2024 Nitrite Ql (U) Negative Negative [facility] Nucleated red blood cell per centageOrdered By: Jose Garza on 09-23-2024 Nucleated RBC/100 WBC (Bld) [Ratio] 0 % 0-5 [facility] Platelet countOrdered By: Yadira Garza on 09-23-2024 Platelets (Bld) [#/Vol] 285 10*3/uL 150-450 [facility] Potassium (Unsp spec) [Mass/ Vol]Ordered By: Emelia Kayla on 09-23-2024 Potassium [Moles/Vol] 3.6 mmol/L 3.3-5.1 [facility] Comment on above: Hemolysis present, R esults could be affected. Protein Test strip Ql (U)Ord ered By: Emelia Kayla on 09-23-2024 Protein Ql (U) 500 mg/dl High Negative [facility] RBC Auto (Bld) [#/Vol]Ordere d By: Emeliaus Freemanantionette on 09-23-2024 RBC (Bld) [#/Vol] 4.53 10*6/uL 4.2-5.4 [facility] Serum creatinine measurement (mass/volume)Ordered By: Jose Garza on 09-23-2024 Creatinine [Mass/Vol] 0.95 mg/dL 0.70-1.20 [facility] Serum globulin measurementOr dered By: Emeliaus Garza on 09-23-2024 Globulin (S) [Mass/Vol] 3.3 g/dL 2.2-4.2 [facility] Serum glucose measurement (m ass/volume)Ordered By: Jose Garza on 09-23-2024 Glucose [Mass/Vol] 415 mg/dL High 70-99 [facility] Serum or plasma alanine dunbar otransferase (ALT) measurementOrdered By: Jose Garza on 09-23-2024 ALT [Catalytic activity/Vol] 15 U/L <35 [facility] Serum or plasma albumin richard urement (mass/volume)Ordered By: Jose Garza on 09-23-2024 Albumin [Mass/Vol] 2.2 g/dL Low 3.5-5.0 [facility] Serum or plasma albumin/glob ulin mass ratioOrdered By: Jose Garza on 09-23-2024 Albumin/Globulin [Mass ratio] 0.7 {ratio} Low 0.9-2.4 [facility] Serum or plasma alkaline fili sphatase measurementOrdered By: Jose Garza on 09-23-2024 ALP [Catalytic activity/Vol] 73 U/L 35-104 [facility] Serum or plasma calcium richard urement (mass/volume)Ordered By: Remus Ungur on 09-23-2024 Calcium [Mass/Vol] 8.1 mg/dL 7.6-11.0 [facility] Serum or plasma urea nitroge n measurement (mass/volume)Ordered By: Remus Ungur on 09-23-2024 Urea nitrogen [Mass/Vol] 12 mg/dL 4-19 [facility] Sodium levelOrdered By: Remu s Ungur on 09-23-2024 Sodium [Moles/Vol] 132 mmol/L Low 133-145 [facility] Total proteinOrdered By: Rem us Ungur on 09-23-2024 Protein [Mass/Vol] 5.6 g/dL Low 5.9-8.4 [facility] Urinalysis, Completeon 09-23 BACTERIA 3+ /hpf Normal None Seen [facility] Comment on above: Order Comment: CLEAN CATCH Performed By: #### L 400.0001 #### [facility] [address] [place], [address] Mucus Ql (Urine sed) RARE Normal [facility] Comment on above: Order Comment: CLEAN CATCH Performed By: #### L 400.0001 #### [facility] [address] [place], [address] RBC 5-10 SEEN Normal 0-5 [facility] Comment on above: Order Comment: CLEAN CATCH Performed By: #### L 400.0001 #### [facility] [address] [place], [address] WBC 50-100 SEEN Normal 0-5 [facility] Comment on above: Order Comment: CLEAN CATCH Performed By: #### L 400.0001 #### [facility] [address] [place], [address] EPI,SQUAMOUS 0 SEEN Normal 5-10 [facility] Comment on above: Order Comment: CLEAN CATCH Performed By: #### L 400.0001 #### [facility] [address] [place], [address] Urine blood detectionOrdered By: Remus Kayla on 09-23-2024 Urine Occult Blood 50 /ul High Negative [facility] Urine clarityOrdered By: Rem us Kayla on 09-23-2024 Clarity (U) Cloudy Clear [facility] Urine color determinationOrd ered By: Remus Garza on 09-23-2024 Color (U) Straw Yellow [facility] Urine leukocyte esterase det ection by dipstickOrdered By: Remus Garza on 09-23-2024 Leukocyte esterase Test strip Ql (U) 100 /ul High Negative [facility] Urine pHOrdered By: Jose Un gur on 09-23-2024 pH (U) 6.5 [pH] 5.0 - 8.0 [facility] Urine sediment bacteria coun t by microscopy (number/high power field)Ordered By: Jose Garza on 09-23-2024 Bacteria LM.HPF (Urine sed) [#/Area] 3 /[HPF] None Seen [facility] Urine specific gravity measu rementOrdered By: Remus Garza on 09-23-2024 Specific gravity (U) [Rel density] 1.015 1.002-1.030 [facility] Urobilinogen Ql (U)Ordered B y: Jose Garza on 09-23-2024 Urine Urobilinogen Normal mg/dl Normal [facility] Venous Duplex US - Yoshi Extre mon 09-23-2024 Venous Duplex US - Yoshi Extrem [facility] [address] [address] Venous Duplex US - Yoshi Extrem 09/23/24 1415 MR#: [id number] Acct: [id number] Name: MINDY FAULKNER Rep #: [id number] : 1980 44 From: Horace Perez MD [...] Date Dictated: 09/23/24 1415 Date Transcribed: 09/23/241957 Sanitation Superintendent: Signed Normal [facility] White blood cell (WBC) count Ordered By: Jose Garza on 09-23-2024 WBC (Bld) [#/Vol] 6.6 10*3/uL 4.4-11.0 [facility] White blood cell countOrdere d By: Jose Garza on 09-23-2024 Urine WBC 50-100 SEEN /hpf 0-5 [facility] ([id number]) 1980 F Date Time Provider Department 07/08/24 [facility] During your visit today, we recorded the [...] glargine LANTUS 100 UNIT/ML SOLN INSULIN GLARGINE [id number] Pierce Pemberton MD 08-26-2013 [place] [facility] ([id number]) - L. acidophilus-L. rhamnosus 15 billion cell [...] Cyst with Abscess [L05.01] 03/15/2010 NO SHOW [344762] 05/01/2013 07/06/2014 Brachial plexus neuropathy [G54.0] 06/04/2013 Neuropathic pain [M79.2] 06/04/2013 Type 2 diabetes mellitus with 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 *10/23/2013 Hidradenitis suppurativa [L73.2] 10/26/2013 HPV test positive [[id number]] 07/16/2014 Tobacco use disorder [F17.200] 12/14/2016 History of substance abuse [F19.11] 07/23/2018 Pain in joint of left shoulder region [M25.512] 09/05/2018 Abnormal mammogram [R92.8] 10/14/2019 Encounter Status:Closed by MALI MERCADO on 07/08/24 [facility] 05-27-20[facility] MINDY FAULKNER ([id number]) 1980 F Date Time Provider Department 05/27/24 ANASTASIIA JOAQUIN [facility] During your visit today, we recorded the [...] also interested in speaking with our social media content manager so I also let her know I would place a consult for [facility]. Provided number for [...] Visit Diagnosis:Mood disorder (HCC) [F39] Order(s):CONSULT TO WEB PAGE DEVELOPER ([facility] ONLY) [[id number]] Order #: [id number]: [id number] Prescriptions as of 05/27/2024 - ibuprofen [...] glargine LANTUS 100 UNIT/ML SOLN INSULIN GLARGINE [id number] Pierce Pemberton MD 08-26-2013 [facility] ([id number]) - L. acidophilus-L. rhamnosus 15 billion cell [...] Cyst with Abscess [L05.01] 03/15/2010 NO SHOW [[id number]] 05/01/2013 07/06/2014 Brachial plexus neuropathy [G54.0] 06/04/2013 Neuropathic pain [M79.2] 06/04/2013 Type 2 diabetes mellitus with 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 *10/23/2013 Hidradenitis suppurativa [L73.2] 10/26/2013 HPV test positive [[id number]] 07/16/2014 Tobacco use disorder [F17.200] 12/14/2016 History of substance abuse [F19.11] 07/23/2018 Pain in joint of left shoulder region [M25.512] 09/05/2018 Abnormal mammogram [R92.8] 10/14/2019 Encounter Status:Closed by ANASTASIIA JOAQUIN on 05/27/24 [facility] 05-23-2024 [facility] Office Visit ([facility]) MINDY FAULKNER ([id number]) 1980 F Date Time Provider Department 05/23/24 10:20 AM ANASTASIIA JOAQUIN [facility] During your visit today, we recorded the following information about you: Temperature Pulse Respiration Blood pressure 98 degrees 99/minute 18/minute 170/98 Weight Last Period 63.3 kg 04/18/24 Anastasiia Joaquin MD 05/23/2024 7:33 PM Signed Anastasiia Joaquin MD [facility] [address] [place] [address] [facility] / [address] [place] [address] Visit Date: May 23, 2024 Name: Mindy Faulkner Date of : 1980 MRN/E #: [id number] Chief Complaint: Patient presents with: Establish Care: RT side arm, breast, and leg w/o injury x 1 month Patient has hidradenitis thinks pain is associated with disorder Subjective Mindy Faulkner is a 43 year old female here for a new patient visit to establish care and also for mood concerns Previously received care at [facility] 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 [...] she would never harm herself -formerly saw [facility] - Dr. Corey, on medicine that altered [...] glargine LANTUS 100 UNIT/ML JONNY INSULIN GLARGINE [id number] Pierce Pemberton MD 08-26-2013 [facility] ([id number]) (Patient not taking: Reported on 05/23/2024) L. [...] gauge mi (more content not included)... Normal [facility] Absolute lymphocyte countOrd ered By: Dr. Hastings on 12-21-2022 Lymphocytes Auto (Unsp spec) [#/Vol] 2.55 10*3/uL 0.83-4.51 [facility] Basophil percentageOrdered B y: Dr. Hastings on 12-21-2022 Basophils/100 WBC (Bld) 1.1 % 0-1 [facility] Bilirubin [Mass/Vol] 0.20 mg/dL 0.20-1.00 [facility] Comment on above: For patients on eltr ombopag therapy, use of Dimension [place] TBIL is not recommended. Chloride [Moles/Vol] 106 mmol/L 98-107 [facility] Eosinophils/100 WBC (Bld) 2.3 % 0-5 [facility] Glucose [Mass/Vol] 291 mg/dL 74-106 [facility] Comment on above: Glucose result great er than or equal to 200 mg/dLsuggests DIABETES MELLITUS per A.D.A. criteria. Neutrophils (Bld) [#/Vol] 2.1 10*3/uL 2.0-7.7 [facility] Neutrophils/100 WBC (Bld) 39.7 % 47-70 [facility] Potassium [Moles/Vol] 4.0 mmol/L 3.5-5.1 [facility] Protein [Mass/Vol] 6.8 g/dL 6.4-8.2 [facility] Sodium [Moles/Vol] 138 mmol/L 136-145 [facility] WBC (Bld) [#/Vol] 5.3 10*3/uL 4.4-11.0 [facility] Blood erythrocytes count (nu mber/volume)Ordered By: Dr. Hastings on 12-21-2022 RBC (Bld) [#/Vol] 4.35 10*6/uL 4.2-5.4 [facility] Blood hemoglobin measurement (mass/volume)Ordered By: Dr. Hastings on 12-21-2022 Hemoglobin (Bld) [Mass/Vol] 12.8 g/dL 12.0-15.0 [facility] Blood lymphocytes/100 leukoc ytesOrdered By: Dr. Hastings on 12-21-2022 Lymphocytes/100 WBC (Bld) 48.4 % 19-41 [facility] Blood monocytes/100 leukocyt esOrdered By: Dr. Hastings on 12-21-2022 Monocytes/100 WBC (Bld) 8.3 % 0-10 [facility] Blood platelet mean volumeOr dered By: Dr. Hastings on 12-21-2022 Platelet mean volume (Bld) [Entitic vol] 10.9 fL 6.2-12.0 [facility] Determination of erythrocyte mean corpuscular volume (MCV)Ordered By: Dr. Hastings on 12-21-2022 MCV (RBC) [Entitic vol] 86.9 fL 81-99 [facility] Erythrocyte sedimentation ra teOrdered By: Dr. Hastings on 12-21-2022 ESR (Bld) [Velocity] 12 mm/h 0-30 [facility] Hematocrit Auto (Bld) [Volum e fraction]Ordered By: Dr. Hastings on 12-21-2022 Hematocrit (Bld) [Volume fraction] 37.8 % 37-47 [facility] Laboratory - Chemistry and C hemistry - challengeOrdered By: Dr. Hastings on 12-21-2022 ALP [Catalytic activity/Vol] 79 U/L 45-117 [facility] ALT [Catalytic activity/Vol] 19 U/L 13-56 [facility] CK [Catalytic activity/Vol] 80 U/L 26-192 [facility] CO2 [Moles/Vol] 28.0 mmol/L 21.0-32.0 [facility] Globulin (S) [Mass/Vol] 3.8 g/dL 2.2-4.2 [facility] Urea nitrogen/Creatinine [Mass ratio] 17.2 mg/mg 10-20 [facility] Laboratory - Hematology and Cell countsOrdered By: Dr. Hastings on 12-21-2022 Erythrocyte distribution width (RBC) [Entitic vol] 39.6 fL 35.1-43.9 [facility] Erythrocyte distribution width (RBC) [Ratio] 12.4 % 11.6-14.6 [facility] Immature granulocytes/100 WBC (Bld) 0.200 % 0.0-0.9 [facility] Comment on above: IG% - Immature Granu locytes (promyelocytes, myelocytes and metamyelocytes) > 1% indicates that a LEFT SHIFT is Present. MCH (RBC) [Entitic mass] 29.4 pg 27.0-32.0 [facility] Nucleated RBC/100 WBC (Bld) [Ratio] 0 % 0-5 [facility] MCHC Auto (RBC) [Mass/Vol]Or dered By: Dr. Hastings on 12-21-2022 MCHC (RBC) [Mass/Vol] 33.9 g/dL 32-36 [facility] No Panel InformationOrdered By: Dr. Hastings on 12-21-2022 Estimated Creatinine Clearance Calc 64.52 ml/min [facility] Estimated GFR (MDRD) Amer 84 mL/min >60 [facility] Comment on above: GFR Calc Estimated GFR (MDRD) Non-Af Amer 70 mL/min >60 [facility] Comment on above: Non- GFR Calc Platelets bldOrdered By: Dr. Hastings on 12-21-2022 Platelets (Bld) [#/Vol] 244 10*3/uL 150-450 [facility] Serum or plasma albumin richard urement (mass/volume)Ordered By: Dr. Hastings on 12-21-2022 Albumin [Mass/Vol] 3.0 g/dL 3.2-5.0 [facility] Serum or plasma albumin/glob ulin mass ratioOrdered By: Dr. Hastings on 12-21-2022 Albumin/Globulin [Mass ratio] 0.8 {ratio} 0.9-2.4 [facility] Serum or plasma calcium richard urement (mass/volume)Ordered By: Dr. Hastings on 12-21-2022 Calcium [Mass/Vol] 8.8 mg/dL 8.5-10.1 [facility] Serum or plasma creatinine m easurement (mass/volume)Ordered By: Dr. Hastings on 12-21-2022 Creatinine [Mass/Vol] 0.93 mg/dL 0.55-1.02 [facility] Comment on above: The validity of the calculated GFR & GFRAA in patients over 70 years has not been determined. Clinical correlation is essential. Serum or plasma urea nitroge n measurement (mass/volume)Ordered By: Dr. Hastings on 12-21-2022 Urea nitrogen [Mass/Vol] 16 mg/dL 7-18 [facility] Thin prep Papanicolaou smear with manual screeningOrdered By: Dr. Hastings on 12-21-2022 Thin prep Papanicolaou smear with manual screening 12 U/L 15-37 [facility] Thin prep Papanicolaou smear with manual screening 4 5-15 [facility] Basophil percentageon 2021 Basophil percentage 0-5 SEEN /hpf 0-5 [facility] Work Phone: Bilirubin Test strip Ql (U)o n 06-26-2022 Bilirubin Ql (U) Negative Negative [facility] Work Phone: Ketones Test strip Ql (U)on 06-26-2022 Ketones Ql (U) 5 mg/dl Negative [facility] Work Phone: Mucus LM Ql (Urine sed)on Mucus Ql (Urine sed) 0 SEEN /hpf [facility] Work Phone: Nitrite Test strip Ql (U)on 06-26-2022 Nitrite Ql (U) Negative Negative [facility] Work Phone: Protein Test strip Ql (U)on 06-26-2022 Protein Ql (U) 100 mg/dl Negative [facility] Work Phone: Squamous epithelial cells de tection in urine sediment by light microscopyon 06-26-2022 Epithelial cells.squamous LM Ql (Urine sed) 0 SEEN /hpf 5-10 [facility] Work Phone: Urine blood detectionon 06-02 RBC Ql (U) 150 /ul Negative [facility] Work Phone: RBC Ql (U) 0-5 SEEN /hpf 0-5 [facility] Work Phone: Urine clarityon 06-26-2022 Clarity (U) Sl. Cloudy Clear [facility] Work Phone: Urine color determinationon 06-26-2022 Color (U) Straw Yellow [facility] Work Phone: Urine glucose detectionon Glucose Ql (U) 1000 mg/dl Normal [facility] Work Phone: Urine leukocyte esterase det ection by dipstickon 06-26-2022 Leukocyte esterase Test strip Ql (U) 25 /ul Negative [facility] Work Phone: Urine pHon 06-26-2022 pH (U) 5.0 [pH] 5.0 - 8.0 [facility] Work Phone: Urine sediment bacteria coun t by microscopy (number/high power field)on 06-26-2022 Bacteria LM.HPF (Urine sed) [#/Area] 4 /[HPF] None Seen [facility] Work Phone: Urine specific gravity measu rementon 06-26-2022 Specific gravity (U) [Rel density] 1.020 1.002-1.030 [facility] Work Phone: Urobilinogen Auto test strip Ql (U)on 06-26-2022 Urobilinogen Ql (U) Normal mg/dl Normal [facility] Work Phone: PROGRESSon 08-01-2018 Protein mass conc HNO ID: [id number] Author: Aury (Ct) CARRINGTON Arellano Service: (none) Author Type: Clinical Sweat Band Sewer Type: Progress Notes Filed: 08/01/2018 9:36 AM Note Text: NAME:Mindy Faulkner DATE: August 01, 2018 CCF#: [id number] Upper Extremity X-Ray(s): Shoulder, AP / TRUE AP / AXILLARY / SUPRA OUTLET left COMPLETED TECH ID SIGN: AURY ARELLANO [facility] XR SHLDR >/=3V AP/WISAM AP/OTH R LTon [...] and soft tissues are unremarkable. IMPRESSION: Negative Sanitation Superintendent: PSCB Transcribe Date/Time: Aug 01 2018 10:06A Dictated by : PIERCE OLIVEORS MD This examination was interpreted and the report reviewed and electronically signed by: PIERCE OLIVEROS MD on Aug 01 2018 10:06AM EST [id number] [facility] Microbiology: Culture, Deep Woundon 03-26-2017 CUDW . Invalid Interpretation Code [facility] Work Phone: GE use only - for LinkLogic import when terms are not otherwise specified . Invalid Interpretation Code [facility] Work Phone: [phone] Microbiology: (P) Culture, D eep Woundon 03-25-2017 GE use only - for LinkLogic import when terms are not otherwise specified Vancomycin $ 1 S Invalid Interpretation Code [facility] Work Phone: [phone] Lab Report: Basic Metabolic Profile (BMP)on 03-24-2017 Anion gap 8 mmol/L Invalid Interpretation Code 5-15 [facility] Work Phone: [phone] BUN/Creatinine Ratio 21.1 RATIO High 10-[address] [facility] Work Phone: [phone] Calcium 8.4 mg/dL Low 8.5-10.1 [facility] Work Phone: [phone] Chloride 103 mmol/L Invalid Interpretation Code 98-107 [facility] Work Phone: [phone] CO2 24.0 mmol/L Invalid Interpretation Code 21.0-32.0 [facility] Work Phone: [phone] Creatinine 96.54 mL/min Invalid Interpretation Code [facility] Work Phone: [phone] Creatinine 0.66 mg/dL Invalid Interpretation Code 0.55-1.02 [facility] Work Phone: [phone] eGFR (non-black) 128 mL/min/{1.73_m2} Invalid Interpretation Code >60 [facility] Work Phone: [phone] eGFR (non-black) 106 mL/min/{1.73_m2} Invalid Interpretation Code >60 [facility] Work Phone: [phone] Glucose 282 mg/dL High 70-110 [facility] Work Phone: [phone] Potassium 4.0 mmol/L Invalid Interpretation Code 3.5-5.1 [facility] Work Phone: [phone] Sodium 135 mmol/L Low 136-145 [facility] Work Phone: [phone] Urea nitrogen 14 mg/dL Invalid Interpretation Code 7-18 [facility] Work Phone: [phone] Lab Report: Bedside Glucoseo n 03-24-2017 Glucose 288 mg/dL High 70-110 [facility] Work Phone: [phone] Lab Report: CBC-Complete Blo od Cnt No Diffon 03-24-2017 Erythrocytes (RBC) 4.31 10*6/uL Invalid Interpretation Code 4.2-5.4 [facility] Work Phone: [phone] Hematocrit (HCT) 38.2 % Invalid Interpretation Code 37-47 [facility] Work Phone: [phone] Hemoglobin (HGB) 12.9 g/dL Invalid Interpretation Code 12.0-15.0 [facility] Work Phone: [phone] MCH 29.9 pg Invalid Interpretation Code 27.0-32.0 [facility] Work Phone: [phone] MCHC 33.8 G/GL Invalid Interpretation Code 32-36 [facility] Work Phone: [phone] MCV 88.6 fL Invalid Interpretation Code 81-99 [facility] Work Phone: [phone] Platelets 190 10*3/mm3 Invalid Interpretation Code 150-450 [facility] Work Phone: [phone] PMV by Devang 11.9 fL Invalid Interpretation Code 6.2-12.0 [facility] Work Phone: [phone] RDW-CA 12.2 % Invalid Interpretation Code 11.6-14.6 [facility] Work Phone: [phone] red blood cell distribution width, size density 38.8 fL Invalid Interpretation Code 35.1-43.9 [facility] Work Phone: [phone] WBC (Leukocytes) 7.8 10*3/uL Invalid Interpretation Code 4.4-11.0 [facility] Work Phone: [phone] Microbiology: Fungus Stainon 03-24-2017 fungus stain . Invalid Interpretation Code [facility] Work Phone: [phone] Replaced Document: Basic Met abolic Profile (BMP)on 03-24-2017 Anion gap 4 molar conc 8 Invalid Interpretation Code 5-15 [facility] Work Phone: [phone] CO2 ppres (BldV) 24.0 mmol/L Invalid Interpretation Code 21.0-32.0 [facility] Work Phone: [phone] EST GFR - AA 128 mL/min Invalid Interpretation Code >60 [facility] Work Phone: [phone] Glucose mass conc 282 mg/dL High 70-110 [facility] Work Phone: [phone] Replaced Document: Bedside G scarletoseon 03-24-2017 Glucose mass conc 288 mg/dL High 70-110 [facility] Work Phone: [phone] Replaced Document: CBC-Compl ete Blood Cnt No Diffon 03-24-2017 Erythrocyte distribution width Auto Ratio (RBC) 38.8 fL Invalid Interpretation Code 35.1-43.9 [facility] Work Phone: [phone] Replaced Document: Fungus St meliza 03-24-2017 FUNST . Invalid Interpretation Code [facility] Work Phone: [phone] Lab Report: Basic Metabolic Profile (BMP)on 03-23-2017 Anion gap 9 mmol/L Invalid Interpretation Code 5-15 [facility] Work Phone: [phone] BUN/Creatinine Ratio 19.6 RATIO Invalid Interpretation Code 10-20 [facility] Work Phone: [phone] Calcium 8.3 mg/dL Low 8.5-10.1 [facility] Work Phone: [phone] Chloride 101 mmol/L Invalid Interpretation Code 98-107 [facility] Work Phone: [phone] CO2 24.0 mmol/L Invalid Interpretation Code 21.0-32.0 [facility] Work Phone: [phone] Creatinine 82.75 mL/min Invalid Interpretation Code [facility] Work Phone: [phone] Creatinine 0.77 mg/dL Invalid Interpretation Code 0.55-1.02 [facility] Work Phone: [phone] eGFR (non-black) 90 mL/min/{1.73_m2} Invalid Interpretation Code >60 [facility] Work Phone: [phone] eGFR (non-black) 109 mL/min/{1.73_m2} Invalid Interpretation Code >60 [facility] Work Phone: [phone] Glucose 307 mg/dL High 70-110 [facility] Work Phone: [phone] Potassium 3.8 mmol/L Invalid Interpretation Code 3.5-5.1 [facility] Work Phone: [phone] Sodium 134 mmol/L Low 136-145 [facility] Work Phone: [phone] Urea nitrogen 15 mg/dL Invalid Interpretation Code 7-18 [facility] Work Phone: [phone] Lab Report: Bedside Glucoseo n 03-23-2017 Glucose 316 mg/dL High 70-110 [facility] Work Phone: [phone] Lab Report: CRPon 03-23-2017 C reactive protein (CRP) 0.636 mg/dL High Uni ts converted. See lab report for original value. [facility] Work Phone: [phone] Lab Report: Erythrocyte Sed Rateon 03-23-2017 Erythrocyte sedimentation rate 33 mm/h High 0-20 [facility] Work Phone: [phone] Lab Report: Hemoglobin A1con 03-23-2017 HbA1c 11.1 % High 4.2-6.3 [facility] Work Phone: [phone] Lab Report: Prealbuminon Prealbumin 22.3 mg/dL Invalid Interpretation Code 20.0-40.0 [facility] Work Phone: [phone] Microbiology: (P) Culture, D eep Woundon 03-23-2017 GE use only - for LinkLogic import when terms are not otherwise specified . Invalid Interpretation Code [facility] Work Phone: [phone] Replaced Document: (P) CBC-C omplete Blood Cnt No Diffon 03-23-2017 Erythrocytes (RBC) 4.55 10*6/uL Invalid Interpretation Code 4.2-5.4 [facility] Work Phone: [phone] Hematocrit (HCT) 40.1 % Invalid Interpretation Code 37-47 [facility] Work Phone: [phone] Hemoglobin (HGB) 13.6 g/dL Invalid Interpretation Code 12.0-15.0 [facility] Work Phone: [phone] MCH 29.9 pg Invalid Interpretation Code 27.0-32.0 [facility] Work Phone: [phone] MCHC 33.9 G/GL Invalid Interpretation Code 32-36 [facility] Work Phone: [phone] MCV 88.1 fL Invalid Interpretation Code 81-99 [facility] Work Phone: [phone] Platelets 215 10*3/mm3 Invalid Interpretation Code 150-450 [facility] Work Phone: [phone] PMV by Devang 11.5 fL Invalid Interpretation Code 6.2-12.0 [facility] Work Phone: [phone] RDW-CA 12.4 % Invalid Interpretation Code 11.6-14.6 [facility] Work Phone: [phone] red blood cell distribution width, size density 39.7 fL Invalid Interpretation Code 35.1-43.9 [facility] Work Phone: [phone] WBC (Leukocytes) 13.3 10*3/uL High 4.4-11.0 [facility] Work Phone: [phone] Replaced Document: Prealbumi non 03-23-2017 Prealbumin Elph mass conc 22.3 mg/dL Invalid Interpretation Code 20.0-40.0 [facility] Work Phone: [phone] Lab Report: ,Urineo n 03-22-2017 Urine, test (choriogonadotropin presence) . Invalid Interpretation Code [facility] Work Phone: [phone] Replaced Document: ,Urineon 03-22-2017 HCG.beta subunit ( test) Ql (U) . Invalid Interpretation Code [facility] Work Phone: [phone] Office Visit: evaluation hid radenitison 03-07-2017 Fall risk assessment No Invalid Interpretation Code [facility] Work Phone: [phone] Tobacco smoking status NHIS Current every day smoker Invalid Interpretation Code [facility] Work Phone: [phone] Tobacco smoking status NHIS Never Invalid Interpretation Code [facility] Work Phone: [phone] Office Visit: evaluation hid radenitison 07-12-2015 Dietary management education, guidance, and counseling (procedure) yes Invalid Interpretation Code [facility] Work Phone: [phone] Documentation of current medications (procedure) Done Invalid Interpretation Code [facility] Work Phone: [phone] Smoking cessation education (procedure) yes Invalid Interpretation Code [facility] Work Phone: [phone] Tobacco smoking status NHIS Never Invalid Interpretation Code [facility] Work Phone: [phone] Tobacco smoking status NHIS Current every day smoker Invalid Interpretation Code [facility] Work Phone: [phone] Tobacco use [facility] Current every day smoker Invalid Interpretation Code [facility] Work Phone: [phone] Microbiology: Culture, Deep Woundon 01-20-2015 GE use only - for LinkLogic import when terms are not otherwise specified Cult, AnaerobicNo anaerobic bacteria isolated. Invalid Interpretation Code [facility] Work Phone: [phone] Lab Report: Basic Metabolic Profile (BMP)on 10-21-2014 Anion gap 8 mmol/L Invalid Interpretation Code 5-15 [facility] Work Phone: [phone] BUN/Creatinine Ratio 12.9 RATIO Invalid Interpretation Code 10-20 [facility] Work Phone: [phone] Calcium 7.7 mg/dL Low 8.5-10.1 [facility] Work Phone: [phone] Chloride 107 mmol/L Invalid Interpretation Code 98-107 [facility] Work Phone: [phone] CO2 24.0 mmol/L Invalid Interpretation Code 21.0-32.0 [facility] Work Phone: [phone] Creatinine 0.7 mg/dL Invalid Interpretation Code 0.6-1.0 [facility] Work Phone: [phone] eGFR (non-black) 101 mL/min/{1.73_m2} Invalid Interpretation Code >60 [facility] Work Phone: [phone] eGFR (non-black) 122 mL/min/{1.73_m2} Invalid Interpretation Code >60 [facility] Work Phone: [phone] Glucose 131 mg/dL High 70-110 [facility] Work Phone: [phone] Potassium 3.5 mmol/L Invalid Interpretation Code 3.5-5.1 [facility] Work Phone: [phone] Sodium 139 mmol/L Invalid Interpretation Code 136-145 [facility] Work Phone: [phone] Urea nitrogen 9 mg/dL Invalid Interpretation Code 7-18 [facility] Work Phone: [phone] Lab Report: CBC-Complete Blo od Cnt No Diffon 10-21-2014 Erythrocytes (RBC) 4.32 10*6/uL Invalid Interpretation Code 4.2-5.4 [facility] Work Phone: [phone] Hematocrit (HCT) 38.5 % Invalid Interpretation Code 37-47 [facility] Work Phone: [phone] Hemoglobin (HGB) 13.0 g/dL Invalid Interpretation Code 12.0-15.0 [facility] Work Phone: [phone] MCH 30.1 pg Invalid Interpretation Code 27.0-32.0 [facility] Work Phone: [phone] MCHC 33.8 G/GL Invalid Interpretation Code 32-36 [facility] Work Phone: [phone] MCV 89.1 fL Invalid Interpretation Code 81-99 [facility] Work Phone: [phone] Platelets 191 10*3/mm3 Invalid Interpretation Code 150-450 [facility] Work Phone: [phone] PMV by Devang 10.7 fL Invalid Interpretation Code 6.2-12.0 [facility] Work Phone: [phone] red blood cell distribution width, size density 42.2 fL Invalid Interpretation Code 35.1-43.9 [facility] Work Phone: [phone] WBC (Leukocytes) 6.1 10*3/uL Invalid Interpretation Code 4.4-11.0 [facility] Work Phone: [phone] Lab Report: Prealbuminon Prealbumin 19.9 mg/dL Low 20.0-40.0 [facility] Work Phone: [phone] Lab Report: Hemoglobin A1con 07-21-2014 HbA1c 10.9 % Critically high 4.2-6.3 [facility] Work Phone: [phone] Microbiology: STEVIEORSLBon 04- fungus culture isolated from skin, hair, nails NO YEAST OR MOLD ISOLATED AFTER 4 WEEKS. Normal [facility] Work Phone: [phone] fungus stain FUNGUS STAIN No yeast or mold observed. Normal [facility] Work Phone: [phone] Lab Report: PTTon 04-25-2011 aPTT 30.9 s Normal 24.1-36.2 [facility] Work Phone: [phone] Vital Signs Date Time Vital Sign Value Performing Clinician Facility 09-23-2024 15:40-0400 Body temperature 96.5 [degF] No Primary Care Physician [facility] 09-23-2024 15:40-0400 Diastolic blood pressure 106 mm[Hg] No Primary Care Physician [facility] 09-23-2024 15:40-0400 Heart rate 105 /min No Primary Care Physician [facility] 09-23-2024 15:40-0400 Respiratory rate 16 /min No Primary Care Physician [facility] 09-23-2024 15:40-0400 SaO2% (BldA) [Mass fraction] 100 % No Primary Care Physician [facility] 09-23-2024 15:40-0400 Systolic blood pressure 175 mm[Hg] No Primary Care Physician [facility] 09-23-2024 13:04-0400 Body height 160.02 cm No Primary Care Physician [facility] 09-23-2024 13:04-0400 Body mass index (BMI) [Ratio] 27.7 kg/m2 No Primary Care Physician [facility] 09-23-2024 13:04-0400 Body weight 71 kg No Primary Care Physician [facility] 05-23-2024 10:49-0500 Body mass index (BMI) [Ratio] 23.96 kg/m2 Anastasiia Joaquin MD Work Phone: [facility] 05-23-2024 10:49-0500 Body temperature 98.01 [degF] Anastasiia Joaquin MD Work Phone: [facility] 05-23-2024 10:49-0500 Body weight 63.32 kg Anastasiia Joaquin MD Work Phone: [facility] 05-23-2024 10:49-0500 Diastolic blood pressure 98 mm[Hg] Anastasiia Joaquin MD Work Phone: [facility] 05-23-2024 10:49-0500 Heart rate 99 /min Anastasiia Joaquin MD Work Phone: [facility] 05-23-2024 10:49-0500 Respiratory rate 18 /min Anastasiia Joaquin MD Work Phone: [facility] 05-23-2024 10:49-0500 SaO2% (BldA) [Mass fraction] 100 % Anastasiia Joaquin MD Work Phone: [facility] 05-23-2024 10:49-0500 Systolic blood pressure 170 mm[Hg] Anastasiia Joaquin MD Work Phone: [facility] 12-21-2022 18:24-0400 Diastolic blood pressure 97 mm[Hg] [facility] 12-21-2022 18:24-0400 Heart rate 124 /min [facility] 12-21-2022 18:24-0400 Respiratory rate 20 /min [facility] 12-21-2022 18:24-0400 SaO2% (BldA) [Mass fraction] 100 % [facility] 12-21-2022 18:24-0400 Systolic blood pressure 154 mm[Hg] [facility] 12-21-2022 17:01-0400 Body mass index (BMI) [Ratio] 26.1 kg/m2 [facility] 12-21-2022 17:01-0400 Body weight 66.8 kg [facility] 12-21-2022 16:37-0400 Body height 160.02 cm [facility] 12-21-2022 16:37-0400 Body temperature 97.9 [degF] [facility] 06-26-2022 11:29-0500 Body height 160.02 cm [facility] Work Phone: 06-26-2022 11:29-0500 Body mass index (BMI) [Ratio] 28.3 kg/m2 [facility] Work Phone: 06-26-2022 11:29-0500 Body temperature 98.2 [degF] [facility] Work Phone: 06-26-2022 11:29-0500 Body weight 72.7 kg [facility] Work Phone: 06-26-2022 11:29-0500 Diastolic blood pressure 98 mm[Hg] [facility] Work Phone: 06-26-2022 11:29-0500 Heart rate 125 /min [facility] Work Phone: 06-26-2022 11:29-0500 Respiratory rate 18 /min [facility] Work Phone: 06-26-2022 11:29-0500 SaO2% (BldA) [Mass fraction] 100 % [facility] Work Phone: 06-26-2022 11:29-0500 Systolic blood pressure 149 mm[Hg] [facility] Work Phone: 03-24-2017 06:39-0400 Body surface area Derived from formula 96.54 mL/min Pierce Pemberton MD [facility] Work Phone: 03-07-2017 11:21-0400 BMI (Body Mass Index) 30.04 kg/m2 Pierce Pemberton MD [facility] Work Phone: 03-07-2017 11:21-0400 Body Temperature 98.6 [degF] Pierce Pemberton MD [facility] Work Phone: 03-07-2017 11:21-0400 BP Diastolic 88 mm[Hg] Pierce Pemberton MD [facility] Work Phone: 03-07-2017 11:21-0400 BP Systolic 138 mm[Hg] Pierce Pemberton MD [facility] Work Phone: 03-07-2017 11:21-0400 BSA (Body Surface Area) 1.87 m2 Pierce Pemberton MD [facility] Work Phone: 03-07-2017 11:21-0400 Height 163.83 cm Pierce Pemberton MD [facility] Work Phone: 03-07-2017 11:21-0400 Respiratory [...] 15:39-0500 BP Diastolic 69 mm[Hg] Porsha Salas [facility] Work Phone: 07-12-2015 15:39-0500 BP Systolic 126 mm[Hg] Porsha Salas [facility] Work Phone: 07-12-2015 15:39-0500 BSA (Body Surface Area) 1.79 m2 Porshaedson Salas [facility] Work Phone: 07-12-2015 15:39-0500 Pulse (Heart Rate) 122 /min Porshaedson Steveer [facility] Work Phone: 07-12-2015 15:39-0500 Respiratory Rate 20 /min Porsha Salas [facility] Work Phone: 07-12-2015 15:39-0500 Weight 72.94 kg Porsha Salas [facility] Work Phone: 07-29-2014 15:07-0500 BP Diastolic 92 mm[Hg] Porshaedson Urbanemglizabether [facility] Work Phone: 07-29-2014 15:07-0500 BP Systolic 130 mm[Hg] Porshaedson Steveer [facility] Work Phone: 07-14-2014 15:51-0500 BP Diastolic 87 mm[Hg] Porsha Schmegneger [facility] Work Phone: 07-14-2014 15:51-0500 BP Systolic 123 mm[Hg] Porsha Salas [facility] Work Phone: 03-14-2012 15:25-0400 Height 163.83 cm Porsha Salas [facility] Work Phone: Encounters Encounter Date Encounter Type Care Provider Facility Start: 05-05-2025 ambulatory Natalia Dmitri Facility:[facility] Start: 05-05-2025 ambulatory Mariam Murry Facility:[facility] Start: 05-05-2025 End: 05-05-2025 Evaluation and management of inpatient Mariam Hastings Facility:[facility] Start: 09-24-2024 End: 09-24-2024 ambulatory Renetta Murillo HEAD OF TALENT MANAGEMENT [facility] Start: 09-24-2024 End: 09-24-2024 Patient encounter procedure Renetta Murillo HEAD OF TALENT MANAGEMENT [facility] Comment on above: ED outreach (09/23/24 [facility] ) Start: 09-23-2024 End: 09-23-2024 Emergency department patient visit No Primary Care Physician -Emergency Department Work Phone: Start: 07-08-2024 End: 07-08-2024 [facility] Work Phone: [facility] Comment on above: Appointment Start: 06-02-2024 End: 06-02-2024 Patient encounter procedure Cristina VANEGASW Work Phone: [facility] Comment on above: Needs assistance wit h community resources (Primary Dx) Start: 05-27-2024 End: 05-27-2024 Telephone encounter Anastasiia Joaquin MD Work Phone: [facility] Start: 05-23-2024 End: 05-23-2024 ambulatory RIYA Carissa JEAN CLAUDE Facility:[facility] Start: 05-23-2024 End: 05-23-2024 Patient encounter procedure Anastasiia Joaquin MD Work Phone: [facility] Comment on above: Mood disorder (HCC) (Primary Dx); Elevated blood pressure reading without diagnosis of hypertension Start: 12-21-2022 End: 12-21-2022 Emergency department patient visit [facility]Emergency Department Start: 07-12-2022 End: 07-12-2022 Nursing evaluation of patient and report Nurse Pnob [facility] Work Phone: OB/Gynecology Comment on above: Missed menses (Prima ry Dx) Start: 06-26-2022 End: 06-26-2022 [facility] Start: 12-28-2021 ambulatory Joey Bradshaw MD Work Phone: [facility] [place] Start: 10-14-2021 ambulatory Kloby Fisher LPN [facility] Comment on above: PHMA/Care Gap Outrea ch Start: 08-01-2018 End: 08-01-2018 Patient encounter procedure [facility] Procedures Date Procedure Procedure Detail Performing Clinician [...] Start: 07-12-2015 End: 07-12-2015 Smoking cessation education Peirce Pemberton MD Start: 07-12-2015 End: 10-13-2015 Follow [...] 64 ONE PNEUMOVAX PRIOR TO AGE 64 [facility] Comment on above: Postponed from 1995 (Postponed - N ot Clinically Indicated) Start: 07-02-2043 PNEUMOCOCCAL (1 - PCV) PNEUMOCOCCAL (1 - PCV) [facility] Comment on above: Postponed from 1985 (Postponed - N ot Clinically Indicated) Start: 07-02-2043 Pneumococcal vaccination Pneumococcal Vaccine (1 of 2 - PCV) [facility] Comment on above: Postponed from 1985 (Postponed - N ot Clinically Indicated) Postponed from 07/07 (Postponed - Not Clinically Indicated) Start: 05-23-2025 Annual PCP Team Chronic Disease Visit Annual PCP Team Chronic Disease Visit [facility] Start: 09-23-2024 [facility] Start: 09-02-2024 End: 09-02-2024 Patient encounter procedure 09/02/2024 10:00 AM EST Office Visit [facility] [address] [place], [place] [id number] Marciano Church DO [address] [place], [place] [id number] New patient [facility] Comment on above: New patient Start: 2024 Screening for malignant neoplasm of colon [facility] Start: 03-02-2024 Covid-19 Vaccine ( season) Covid-19 Vaccine ( season) [facility] Start: 03-02-2024 Influenza vaccination Influenza Vaccine (#1) [facility] Start: 11-24-2023 Glaucoma screening Dilated Retinal Exam [facility] Start: 07-12-2022 End: 09-11-2022 Choriogonadotropin ( test) [Presence] in Urine HCG QUAL UR Lab Routine Missed menses Expected: 07/12/2022, Expires: 09/11/2022 [facility] Work Phone: Comment on above: Expected: 07/12/2022, Expires: 3 Start: 07-02-2022 DEPRESSION ASSESSMENT DEPRESSION ASSESSMENT [facility] Start: 06-26-2022 [facility] Work Phone: Start: 03-02-2022 Influenza vaccination [facility] Start: 12-27-2021 HPV TESTING HPV TESTING [facility] Start: 12-27-2021 PAP TESTING PAP TESTING [facility] Start: 12-27-2021 Screening for malignant neoplasm of cervix Cervical Cancer Screening [facility] Start: 10-18-2021 End: 12-18-2021 ALBUMIN/CREAT RATIO RND UR ALBUMIN/CREAT RATIO RND UR Lab Routine Type 2 diabetes mellitus with 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, unspecified whether watermelon inspector insulin use (HCC) Expected: 10/18/2021, Expires: 12/18/2021 [facility] Work Phone: Comment on above: Expected: 10/18/2021, Expires: 2 Start: 10-18-2021 End: 12-18-2021 CBC W Auto Differential panel - Blood CBC + DIFF Lab Routine Type 2 diabetes mellitus with 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, unspecified whether care home insulin use (HCC) Expected: 10/18/2021, Expires: 12/18/2021 [facility] Work Phone: Comment on above: Expected: 10/18/2021, Expires: 2 Start: 10-18-2021 End: 12-18-2021 Comprehensive metabolic 2000 panel - Serum or Plasma COMP METABOLIC PANEL Lab Routine Screening for hyperlipidemia Expected: 10/18/2021, Expires: 12/18/2021 [facility] Work Phone: Comment on above: Expected: 10/18/2021, Expires: 2 Start: 10-18-2021 End: 12-18-2021 Hemoglobin A1c/Hemoglobin.total in Blood HGB A1C Lab Routine Type 2 diabetes mellitus with 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, unspecified whether care home insulin use (HCC) Expected: 10/18/2021, Expires: 12/18/2021 [facility] Work Phone: Comment on above: Expected: 10/18/2021, Expires: 2 Start: 10-18-2021 End: 12-18-2021 LIPID PANEL BASIC LIPID PANEL BASIC Lab Routine Screening for hyperlipidemia Expected: 10/18/2021, Expires: 12/18/2021 [facility] Work Phone: Comment on above: Expected: 10/18/2021, Expires: 2 Start: 07-14-2020 Mammography MAMMOGRAM [facility] Start: 07-14-2020 Screening for malignant neoplasm of breast Mammogram Screening [facility] Start: 07-10-2020 ANNUAL PCP TEAM CHRONIC DISEASE VISIT ANNUAL PCP TEAM CHRONIC DISEASE VISIT [facility] Start: 07-10-2020 Hepatitis B screening URINE ALBUMIN:CREATININE RATIO [facility] Start: 06-23-2020 Hepatitis B surface antibody level LDL CHOLESTEROL [facility] Start: 02-08-2020 3 comp foot exam completed DIABETIC FOOT EXAM [facility] Start: 02-08-2020 Diabetic foot examination Diabetic Foot Exam [facility] Start: 09-22-2019 Hemoglobin A1c measurement HbA1C [facility] Start: 09-22-2019 Hemoglobin A1c/Hemoglobin.total in Blood HBA1C [facility] Start: 04-10-2018 Hepatitis C antibody, confirmatory test DILATED RETINAL EXAM [facility] Start: 12-14-2017 Adult depression screening assessment DEPRESSION SCREENING [facility] Start: 03-07-2017 End: 04-23-2017 Follow Up Appt Other Follow Up Appt Other [facility] Work Phone: Start: 02-19-2017 End: 02-19-2017 Appointment Appointment [facility] Work Phone: Start: 07-12-2015 End: 10-13-2015 Follow Up Appt Other Follow Up Appt Other [facility] Work Phone: Start: 07-12-2015 End: 10-13-2015 Follow Up Appt Other [facility] Work Phone: Start: 07-29-2014 End: 08-05-2014 Follow up Appt 1 week Follow up Appt 1 week [facility] Work Phone: Start: 07-29-2014 End: 08-05-2014 Follow up Appt 1 week Follow up Appt 1 week [facility] Work Phone: Start: 07-14-2014 End: 07-20-2014 Follow Up Appt Other Follow Up Appt Other [facility] Work Phone: Start: 07-14-2014 End: 07-20-2014 Follow Up Appt Other Follow Up Appt Other [facility] Work Phone: Start: 08-26-2013 End: 08-27-2013 Follow Up Appt Other Follow Up Appt Other [facility] Work Phone: Start: 08-26-2013 End: 08-27-2013 Follow Up Appt Other Follow Up Appt Other [facility] Work Phone: Start: 1998 HEPATITIS B (1 of 3 - Risk 3-dose series) HEPATITIS B (1 of 3 - Risk 3-dose series) [facility] Start: 1998 Hepatitis B Vaccine (1 of 3 - 19+ 3-dose series) Hepatitis B Vaccine (1 of 3 - 19+ 3-dose series) [facility] Start: 1998 Urine microalbumin profile [facility] Start: 1997 Anxiety Screening Anxiety Screening [facility] Start: 1997 Depression Screening Depression Screening [facility] Start: 1997 HEPATITIS C SCREENING HEPATITIS C SCREENING [facility] Start: 1997 Hepatitis C screening Hepatitis C Screening [facility] Start: 1997 HIV SCREENING HIV SCREENING [facility] Start: 1997 HIV screening HIV Screening [facility] Start: 1984 COVID-19 VACCINE (1) COVID-19 VACCINE (1) [facility] Start: 01-05-1980 COVID-19 VACCINE (#1) COVID-19 VACCINE (#1) [facility] Start: 1979 HEPATITIS B (1 of 3 - 3-dose series) HEPATITIS B (1 of 3 - 3-dose series) [facility] Patient Education [facility] Work Phone: Patient referral [facility] Work Phone: End: 01-27-2023 Screening mammography bi 2-view breast inc cad KRISTI SCREENING Radiology Routine Encounter for screening mammogram for breast cancer 1 Occurrences starting 12/28/2021 until 01/27/2023 [facility] Work Phone: Comment on above: 1 Occurrences starting 12/28/2021 until 01/27/2023 Urine culture [facility] Immunizations Immunization Date Immunization Notes Care Provider Rhina lino 07-23-2018 influenza virus vacc ine, unspecified formulation Anastasiia Joaquin MD Work Phone: [facility] 04-15-2013 influenza virus vacc ine, unspecified formulation Kolby Fisher LPN [facility] 12-14-2010 tetanus toxoid, adsorbed Kolby manrique [facility] Payers Date Payer Category Payer Self-pay [id number] 2024 Unknown [id number] 2023 Private Health Insurance JASVIR WEBBX [id number] 2023 Unknown JASVIR TAY HI X [id number] 2023-Present [phone] [address] [address] [place] [address] HMO [id number] 2012 Unknown [employer] [id number] 2012 Unknown [id number] 2012 Medicaid [employer] A[employer] MEDICAID [id number] 2012-Present [phone] [address] [place] [address] Medicaid [id number] 2012 Medicaid [id number] Unknown [id number] Unknown [id number] Unknown [id number] Unknown [id number] Unknown [id number] Social History Date Type Detail Facility Start: 07-14-2019 End: 09-23-2024 Tobacco smoking status RIIS Smokes tobacco daily [facility] History of tobacco use Cigar Smoker [facility] Start: 12-29-2019 End: 05-23-2024 Alcohol intake Current non-drinker of alcohol (finding) [facility] Start: 03-13-2019 End: 05-23-2024 Tobacco Comment 1 cigar daily [facility] Start: 1980 Sex Assigned At Not on file C [facility] Start: 10-09-2021 End: 10-19-2021 Exposure to SARS-CoV-2 (event) Not sure [facility] Start: 06-26-2022 End: 12-21-2022 Tobacco smoking status NHIS Unknown if ever smoked [facility] Start: 12-27-2020 Occasional [facility] Start: 12-27-2020 Marijuana [facility] Start: 12-27-2020 Cigarettes [facility] Start: 1980 Sex Assigned At Female W [facility] History of tobacco use Cigarette Smoker C [facility] Work Phone: Start: 07-14-2019 End: 05-23-2024 Cigarettes smoked current (pack per day) - Reported 0.3 [facility] Start: 07-14-2019 End: 05-23-2024 Tobacco use and exposure Smokeless tobacco non-user [facility] Work Phone: Start: 05-23-2024 Tobacco use panel [facility] Adult Depression Screening Assessment 4 [facility] Start: 10-20-2014 Spouse/ Significant Other Spouse/ Significant Other [facility] Start: 09-23-2024 Sex Female (finding) [facility] NEGATED: Highlighted row [facility] Medical Equipment Procedure Code Equipment Code Equipment Original Text Equipment Identifier Dates [id number], [id number], [id number] Start: 10-25-2017 Comment on above: Test blood sugar(s) 4 times daily. Dx: Type 2 DM - Uncontrolled E11.65 Insulin: Yes Test blood sugar(s) 4 times daily. Dx: Type 2 DM - Controlled E11.9 Insulin: Yes Functional Status Date Assessment Result Facility 09-24-2014 Are you deaf, or do you have serious difficulty hearing No 09/24/2014 2:04 PM Jolie Lawrence Cma No [facility] 09-24-2014 Are you blind, or do you have serious difficulty seeing, even when wearing glasses No 09/24/2014 2:04 PM Jolie Lawrence [facility] No [facility] 09-24-2014 Do you have serious difficulty walking or climbing stairs No 09/24/2014 2:04 PM EDT Jolie Dennis [facility] No [facility] 09-24-2014 Do you have difficul ty dressing or bathing No 09/24/2014 2:04 PM EDT Jolie Dennis [facility] No [facility] 09-24-2014 Because of a physica l, mental, or emotional condition, do you have difficulty doing errands alone such as visiting a physician's office or shopping No 09/24/2014 2:04 PM EDT Jolie Dennis Cma No [facility] Mental Status Date Assessment Result Facility 06-26-2022 Cognitive function Level Of Cons ciousness Awake;Alert;Appropriate;Fol lows Commands [facility] Work Phone: 09-24-2014 Because of a physica l, mental, or emotional condition, do you have serious difficulty concentrating, remembering, or making decisions No 09/24/2014 2:04 PM EDT Jolie Dennis Cma No [facility] Clinical Notes 05-01-2013 to 04-13-2025 Renetta Murillo LPN - 09/24/2024 9:22 AM EDT Note Date & Type Note Facility 04-13-2025 Note HNO ID: [id number] Author: CHERYL MUNOZ RN Service: ? Author [...] Munoz RN April 13, 2025 12:59 PM [facility] 04-13-2025 Note Patient Outreach ([facility]) TALATMINDY ([id number]) 1980 F Date Time Provider Department 04/13/25 CHERYL MUNOZ [facility] During your visit today, we recorded the [...] glargine LANTUS 100 UNIT/ML SOLN INSULIN GLARGINE [id number] Pierce Pemberton MD 08-26-2013 [facility] ([id number]) - L. acidophilus-L. rhamnosus 15 billion cell [...] Cyst with Abscess [L05.01] 03/15/2010 NO SHOW [[id number]] 05/01/2013 07/06/2014 Brachial plexus neuropathy [G54.0] 06/04/2013 Neuropathic pain [M79.2] 06/04/2013 Type 2 diabetes mellitus with 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 *10/23/2013 Hidradenitis suppurativa [L73.2] 10/26/2013 HPV test positive [[id number]] 07/16/2014 Tobacco use disorder [F17.200] 12/14/2016 History of substance abuse [F19.11] 07/23/2018 Pain in joint of left shoulder region [M25.512] 09/05/2018 Abnormal mammogram [R92.8] 10/14/2019 Encounter Status:Closed by CHERYL MUNOZ on 04/13/25 [facility] 09-25-2024 Note HNO ID: [id number] Author: ANASTASIIA JOAQUIN MD Service: ? Author Type: Resident Type: Progress Notes Filed: 09/25/2024 13:17 Note Text: Noted, thanks. [facility] 09-25-2024 Note HNO ID: [id number] Author: SUSHMA QUIGLEY LPN Service: ? Author Type: LICENSED NURSE Type: Progress Notes Filed: 09/25/2024 11:26 Note Text: ED Follow Up: Patient discharged from [facility] ED on 09/23/24. Attempted to call patient, no answer.Unable to leave a message due to message comes on stating this number has 'call restrictions'. This is the second attempt to contact this patient for an ED Outreach and not being able to reach this patient. Sushma Quigley LPN [facility] 09-24-2024 Note HNO ID: [id number] Author: RENETTA MURILLO LPN Service: ? Author Type: LICENSED NURSE Type: Progress Notes Filed: 09/24/2024 09:24 Note Text: ED Follow Up: Patient discharged from [facility] ED on 09/23/24. Attempted to call patient, no answer.Unable to leave a message due to message comes on stating this number has call restrictions and call can not be completed. Renetta Murillo LPN [facility] 09-24-2024 History of Present illness Narrative ED Follow Up: Patient discharged from [facility] ED on 09/23/24. Attempted to call patient, no answer.Unable to leave a message due to message comes on stating this number has call restrictions and call can not be completed. Renetta Murillo LPN documented in this encounter [facility] 09-24-2024 Note Patient Outreach ([facility]) MINDY FAULKNER ([id number]) 1980 F Date Time Provider Department 09/24/24 RENETTA MURILLO [facility] During your visit today, we recorded the following information about you: Renetta Murillo LPN 09/24/2024 9:24 AM Signed ED Follow Up: Patient discharged from [facility] ED on 09/23/24. Attempted to call patient, no answer.Unable to leave a message due to message comes on stating this number has call restrictions and call can not be completed. BRE Darden Abbigail, LPN 09/25/2024 11:26 AM Signed ED Follow Up: Patient discharged from [facility] ED on 09/23/24. Attempted to call [...] for Visit: ED outreach [Other] Cmt: 09/23/24 [facility] Prescriptions as of 09/25/2024 - ibuprofen [...] glargine LANTUS 100 UNIT/ML SOLN INSULIN GLARGINE [id number] Pierce Pemberton MD 08-26-2013 [facility] (01581) - L. acidophilus-L. rhamnosus 15 billion cell [...] Cyst with Abscess [L05.01] 03/15/2010 NO SHOW [[id number]] 05/01/2013 07/06/2014 Brachial plexus neuropathy [G54.0] 06/04/2013 Neuropathic pain [M79.2] 06/04/2013 Type 2 diabetes mellitus with 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 *10/23/2013 Hidradenitis suppurativa [L73.2] 10/26/2013 HPV test positive [[id number]] 07/16/2014 Tobacco use disorder [F17.200] 12/14/2016 History of substance abuse [F19.11] 07/23/2018 Pain in joint of left shoulder region [M25.512] 09/05/2018 Abnormal mammogram [R92.8] 10/14/2019 Encounter Status:Closed by RENETTA MURILLO on 09/24/24 [facility] 09-23-2024 Discharge summary [facility] 09-23-2024 Discharge summary Note Date/Time September 23, 2024 3:55pm [facility] Medical Records Department [address] [place] [address] Emergency Department Summary 09/23/24 MR#: [id number] Acct: [id number] Name: MINDY FAULKNER Rep #:[id number] : [...] Does not see a primary care physician. [facility] Medical History Wears dentures Wears glasses [...] % (Auto) 53.1 Lymph % (Auto) 35.8 [place] % (Auto) 6.8 Eos % (Auto) 2.9 [...] Clarity Cloudy Urine pH 6.5 Ur Specific [place] 1.015 Urine Protein 500 H Urine Glucose [...] Referrals: Yariel Cruz MD [Med Staff - [facility]] - 3-5 Days Care Physician,No Primary [Primary Care Provider] - Activity Restrictions/Additional Instructions: Keep your appointment with primary care physician. Print Language: Syriac Disposition Disposition: Home, Self Care What to do if you have Problems For any increased pain, shortness of breath, bleeding, nausea or vomiting, chestpain, or any unexpected problems, contact your Primary Care Provider. Call [facility] ([phone]) or report to the closest Emergency Room. Call 911 if necessary. 09/23/24 0879 <Electronically signed by Jose Garza DO> Cosigner Signature (if applicable): CC: No Primary Care Physician ~ Signed [facility] Work Phone: 1(218) 715-326203-25-2025 NotePatient Outreach (AGCFM) MINDY FAULKNER ([id number]) 1980 F Date Time Provider Department 09/23/24 RIYA SILVERIO [facility] During your visit today, we recorded the [...] breast cancer [Z12.31] Order(s):KRISTI SCREENING W NEGRA [[id number]] Order #: [id number] FUTURE Prescriptions as of 10/24/2024 - ibuprofen [...] glargine LANTUS 100 UNIT/ML SOLN INSULIN GLARGINE [id number] Pierce Pemberton MD 08-26-2013 [facility] ([address]) - L. acidophilus-L. rhamnosus 15 billion cell [...] Cyst with Abscess [L05.01] 03/15/2010 NO SHOW [[id number]] 05/01/2013 07/06/2014 Brachial plexus neuropathy [G54.0] 06/04/2013 Neuropathic pain [M79.2] 06/04/2013 Type 2 diabetes mellitus with 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 *10/23/2013 Hidradenitis suppurativa [L73.2] 10/26/2013 HPV test positive [LSG5968] 07/16/2014 Tobacco use disorder [F17.200] 12/14/2016 History of substance abuse [F19.11] 07/23/2018 Pain in joint of left shoulder region [M25.512] 09/05/2018 Abnormal mammogram [R92.8] 10/14/2019 Encounter Status:Closed by DEMOND ASCENCIO on 10/24/24[facility] 07-08-2024 Telephone encounter Note* Telephone Encounter - Mali Mercado - 07/08/2024 9:14 AM EST Patient called to make 1st appt in office I gave her directions etc Mali Mercado July 08, 2024 9:14 AM [facility]01-07-2025 Miscellaneous Notes* Telephone Encounter - Mali Mercado - 07/08/2024 9:14 AM EST Patient called to make 1st appt in office I gave her directions etc Mali Mercado July 08, 2024 9:14 AM [facility]24 NoteHNO ID: [id number] Author: CRISTINA ESPARZA LSW Service: ? Author Type: Feed Research Technician Type: Progress Notes Filed: 06/02/2024 15:42 Note Text: Outcall to patient as per referral below: No response. Left voice message. As patient resides in [place] would provide local agencies: [employer], [address] [address] drop.io: [facility] [address] [place] [address] Patient: Mindy Faulkner ([id number]) Sex: Female : 1980 [facility] ID Number: [id number] [place] ID Number: [id number] [facility]: [id number] [facility]: [id number] Address: [address]03 [facility] [place] [address] CONSULT TO WEB PAGE DEVELOPER ( IMCA/CFM ONLY) Priority: Routine Class: Jarrett [...] Date:05/27/2024 Ordering User:ANASTASIIA JOAQUIN Authorizing Provider:Johann Montiel Department:[facility] ACC CFM Location: [facility] Provider ID: [id number] NPI Number: [id number] Priority: Routine Referred by: None Referral type: Transition of Care Referral reason: PCP Requested Referral To Location/POS: None To Specialty: None Visits requested: 1 Expiration Date: 08/25/24 Referred to: Not Available Electronically Signed by: ANASTASIIA JOAQUIN Telephone 05/27/2024 [facility] Anastasiia Joaquin MD Family Medicine Mood disorder (HCC) Dx All Conversations (Newest Message First)View All Conversations on this Encounter June 02, 2024 06/02/24 3:18 PM You routed this conversation to Anastasiia Joaquin MD May 27, 2024 05/27/24 9:17 AM Anastasiia Joaquin MD routed this conversation to [facility] Social Work Referral Pool Anastasiia [...] also interested in speaking with our social media content manager so I also let her know I would place a consult for [facility]. Provided number for suicide/crisis hotline 988. Patient has no questions. Anastasiia Joaquin MD 05/27/2024 9:13 [facility]12-02-2024 History of Present illness Narrative* Cristina Esparza, INSURANCE BILLING SPECIALIST - 06/02/2024 3:20 PM EST Images from the original note were not included. Outcall to patient as per referral below: No response. Left voice message. As patient resides in [place] would provide local agencies: [employer] [address] [place] [phone] [employer]: Referral [address] [address] Patient: Mindy Faulkner ([id number]) Sex: Female : 1980 [facility] ID Number: [id number] [place] ID Number: [id number] [facility]: [id number] [facility]: [id number] Address: [address] [facility] [place] [address] CONSULT TO WEB PAGE DEVELOPER ( IMCA/CFM ONLY) Priority: Routine Class: Jarrett [...] Date:05/27/2024 Ordering User:ANASTASIIA JOAQUIN Authorizing Provider:Johann Montiel Department:[facility] ACC CFM Location: [facility] Provider ID: [id number] NPI Number: [id number] Priority: Routine Referred by: None Referral type: Transition of Care Referral reason: PCP Requested Referral To Location/POS: None To Specialty: None Visits requested: 1 Expiration Date: 08/25/24 Referred to: Not Available Electronically Signed by: ANASTASIIA JOAQUIN Telephone 05/27/2024 [facility] Anastasiia Joaquin MD Family Medicine Mood disorder (HCC) Dx All Conversations (Newest Message First)View All Conversations on this Encounter June 02, 2024 CG 06/02/24 3:18 PM You routed this conversation to Anastasiia Joaquin MD May 27, 2024 NEL 05/27/24 9:17 AM Anastasiia Joaquin MD routed this conversation to [facility] Social Work Referral Pool Anastasiia [...] also interested in speaking with our social media content manager so I also let her know I would place a consult for CFM SW. Provided number for suicide/crisis hotline 988. Patient has no questions. Anastasiia Joaquin MD 05/27/2024 9:13 AM documented in [facility] encounterSal[facility]11-26-2024 Telephone encounter Note * Telephone Encounter [...] also interested in speaking with our social media content manager so I also let her know I would place a consult for CFM SW. Provided number for suicide/crisis hotline 988. Patient has no questions. Anastasiia Joaquin MD 05/27/2024 9:13 AM [facility]11-26-2024 Miscellaneous Notes* Telephone Encounter - Anastasiia [...] also interested in speaking with our social media content manager so I also let her know I would place a consult for [facility]. Provided number for suicide/crisis hotline 988. Patient has no questions. Anastasiia Joaquin MD 05/27/2024 9:13 AM documented in this encounterSalem City Hospital11-24-2024 NoteHNO ID: [id number] Author: JOHANN MONTIEL MD Service: ? Author [...] for further details. Johann Montiel, [facility]11-22-2024 Instructions* Patient Instructions* Anastasiia Joaquin MD [...] or provider preference: Central/Multiple Locations: [facility]: 64[address] [facility] [phone] Duglas Roland: [address] Michelle Bañuelos [place] - [phone] [facility].: [address] [place] [facility] - [phone] [facility]: 7800 [facility] - [phone] [place] [facility]: 4500 [facility] - [phone] (Medicaid only) [facility]: Multiple Locations - [phone] [facility] Department of Psychiatry & Psychology at [phone] (select Option 1) or [phone] (select Option 1) Connections: Multiple Locations - [phone] (Medicaid only) Fabrice [facility] - Multiple Locations - [phone] (Medicaid only) [facility], [facility].: Multiple Locations - [phone] Psychological and Behavioral Consultants: Multiple Locations - [phone] Recovery Resources: Multiple Locations - [phone] [facility] Locations: [facility]: [address] [facility] - [phone] [facility]: [address] [facility]. [place] - [phone] Juanis Webb PhD and Associates: [address] [facility] - [phone] [place] [id number] [facility] [address] Flores - [phone] Em Calloway MD: [address] [facility] - [phone] [facility]. 1834 Jamari Bernal , [place] - [phone] [facility]: 992 [facility] - [phone] [facility], [address] [place] [address] - [phone] [place] Locations: Lynn Davis MD [facility] Associates Inc: [address] Kayleen Enrique, [address] - [phone] Juanis Webb PhD and Associates: [address] [facility] - [phone] [facility] Family Services: [address] [facility] - [phone] [facility], Inc.: 3690 [facility] - [phone] [facility], [address], [place] - [phone] [facility], [address]rosio, [place] - [phone] [facility]: [address] Tim Lara. [place] - [phone] [facility] Locations: [facility] Psychological and Counseling Services of [facility] L W [facility] -[phone] [facility] L Jannette Enrique, [facility] - [phone] [facility] Psychiatry: [address] [place] [address], [place] - [phone] [facility]: [address] [facility], [facility] - [phone] [facility] - 256 [facility] - [phone] [place] Locations: [facility] MD Psychiatry, Sleep Medicine - 2420 [facility] [phone] or [phone] Fani Johnson MD - 2422 [facility] [phone] Psychological and Behavioral Consultants - NIMO sAhford, DCSW - [address] [phone] [facility] - 2801 [facility] [phone] [facility] (NO Commercial Insurance accepted) - [address] [place] [phone] [facility] - Kal Schulz, PCC, LIDC - [address] [place] [phone] Karmen Ruiz SOUND DESIGNER - 2400 [facility] [phone] June Mart, [facility] - [address] [place] [phone] All Ramos, PhD - [address] [place] [phone] Lali Sampson, SOUND DESIGNER - 850 [facility] [phone] Faviola Victoria, PCCS, LICDC (No Medicare, [facility]) - [address] [phone] Clarence Boyle, [facility] - [address] [place], [place] - [phone] Austin Randhawa, [address] [phone] For additional resources and information please call or review the website: [email or web address] [place] [email or web address]/ If you are feeling suicidal, please call [employer], , or the [employer]) Suicide Hotline , Call 300, or go to your nearest emergency room documented in this encounterSalem City Hospital11-22-2024 NoteHNO ID: [id number] Author: ANASTASIIA JOAQUIN MD Service: ? Author Type: Resident Type: Progress Notes Filed: 05/23/2024 19:33 Note Text: Anastasiia Joaquin MD [facility] Family Medicine [address] [place] [address] [facility] [address] [place], [place] [address] Visit Date: May 23, 2024 Name: Mindy Faulkner Date of : 1980 MRN/E #: [id number] Chief Complaint: Patient presents with: Establish Care: RT side arm, breast, and leg w/o injury x 1 month Patient has hidradenitis thinks pain is associated with disorder Subjective Mindy Faulkner is a 43 year old female here for a new patient visit to establish care and also for mood concerns Previously received care at [facility] 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 [...] she would never harm herself -formerly saw [facility] - Dr. Corey, on medicine that altered [...] glargine LANTUS 100 UNIT/ML SOLN INSULIN GLARGINE [id number] Pierce Pemberton MD 08-26-2013 [facility] ([id number]) (Patient not taking: Reported on 05/23/2024) L. [...] tablet by mouth t (more content not included)...[facility]11-22-2024 History of Present illness Narrative* Anastasiia Joaquin MD - 05/23/2024 11:05 AM EST Images from the original note were not included. Anastasiia Joaquin MD [facility] 1 [facility] [address] Floor [place] [address] Visit Date: May 23, 2024 Name: Mindy Faulkner Date of : 1980 MRN/E #: [id number] Chief Complaint: Patient presents with: Establish Care: RT side arm, breast, and leg w/o injury x 1 month Patient has hidradenitis thinks pain is associated with disorder Subjective Mindy Faulkner is a 43 year old female here for a new patient visit to establish care and also for mood concerns Previously received care at [facility] 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 [...] she would never harm herself -formerly saw [facility] - Dr. Corey, on medicine that altered [...] glargine LANTUS 100 UNIT/ML SOLN INSULIN GLARGINE [id number] Pierce Pemberton MD 08-26-2013 [facility] ([id number]) (Patient not taking: Reported on 05/23/2024) L. 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 Anastasiia Joaquin MD Family Medicine, PGY-I [facility] Date: May 23, 2024 Time: 6:56 PM documented in this encounterSalem City Hospital01-11-2023 History of Present illness Narrative* Evette [...] 2 weeks.Evette Rivera RN documented in this encounterSalem City Hospital12-26-2022 Hospital Discharge instructions Additional Instructions Apply ice to the lower back 6-10 times a day for the next 3 to 5 days. Avoid activity that causes you increased painWUniversity Hospitals Ahuja Medical Center Work Phone: [phone]) 400-934004-19-2022 History of Present illness Narrative* Janeth Low [...] Care Gap or Scheduling/Wellness visits Payer: Payor: [facility] MEDICAID / Plan: [facility] MEDICAID / Product Type: Medicaid / [...] 14, 2021 4:24 PM documented in this encounterSalem City Hospital10-31-2013 History of Past illness Narrative* Problem Noted Date Resolved Date NO SHOW 05/01/2013 07/06/2014 documented as of this encounter (statuses as of 10/26/2021) [facility]10[facility] History of Past illness Narrative* Problem Noted Date Resolved Date NO SHOW 05/01/2013 07/06/2014 documented as of this encounter (statuses as of 01/02/2022) [facility] History of Past illness Narrative* Problem Noted Date Resolved Date NO SHOW 05/01/2013 07/06/2014 documented as of this encounter (statuses as of 07/12/2022) [facility] note* Diagnosis Type 2 diabetes mellitus with 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, unspecified whether care home insulin use (HCC)- Primary Screening for hyperlipidemia Screening for lipoid disorders documented in this encounter [facility] note* Diagnosis Encounter for screening mammogram for breast cancer documented in this encounter [facility] noteNo assessment information availableWUniversity Hospitals Ahuja Medical Center Work Phone: Evaluation note* Diagnosis Missed menses- Primary Absence of menstruation documented in this encounter [facility] note* Diagnosis Mood disorder (HCC)- Primary Unspecified episodic mood disorder Elevated blood pressure reading without diagnosis of hypertension documented in this encounter [facility] note* Diagnosis Mood disorder (HCC)- Primary Unspecified episodic mood disorder documented in this encounter [facility] note* Diagnosis Needs assistance with community resources- Primary documented in this encounter [facility] Discharge instructions Additional Instructions Keep your appointment with primary care physician.[facility] Work Phone: Reason for referral (narrative)* Diagnostic Procedure Only (Routine) - Pending Review Specialty Diagnoses / Procedures Referred By Sravani brenner Referred To Contact [facility] Diagnoses Encounter for screening mammogram for breast cancer Procedures KRISTI SCREENING SCREENING MAMMOGRAPHY BI 2-VIEW BREAST INC CAD Joey Bradshaw MD [address] [place] [address] [facility] [place] [address] Referral ID Status Reason Start Date Expiration Date Visits Requested Visits Authorized [id number] Pending Review Auto-Generat ed Referral 12/28/2021 01/27/2023 1 1 [facility] for referral (narrative)No reason for referral information availableWUniversity Hospitals Ahu[facility] Medical Center Work Phone: Summary Purpose Family History No Family History Records Found Relationship Condition Age at Onset Recorded Date/T ivanna Not Specified Diabetes mellitus Unknown Advance Directives No Advanced Directives Records FoundDocuments on File Type Date Recorded Patient Precision Dancer Expl anation Advance Directive(s) 03/20/2019 9:08 AM Advance Directive(s) 08/01/2018 8:56 AM Documents on File Type Date Recorded Patient Precision Dancer Expl anation Advance Directive(s) 03/20/2019 9:08 AM Advance Directive(s) 08/01/2018 8:56 AM Advance Directive Response Recorded Date/ Time Advance Directives No May 10:47pm Living Will No June 26, 2 022 1:04pm Power of Account Adjuster No June 26, 2022 1:04pm Advance Directive Response Recorded Date/ Time Advance Directives No May 11:47pm Living Will No December 21, 2022 4:55pm Power of Account Adjuster No December 21 4:55pm Advance Directive Response Recorded Date/ Time Living Will No September 23, 2024 1:18pm Do you have a Healthcare Power of Account Adjuster? No September 23, 2024 1:18pm Advance Directives No May 11:47pm Chief Complaint and Reason for Visit Chief Complaint GENERAL Chief Complaint LOWER EXTREMITY Chief Complaint Admit Date SPASMS September 23, 2024 1:0 4pm Reason for Referral Specialty Diagnoses / Procedures Referred By Contac t Referred To Contact Diagnoses Mood disorder (HCC) Procedures CONSULT TO PRIMARY CARE BEHAVIORAL HEALTH ADULT OFFICE/OUTPATIENT [facility] 60 MINUTES Russell Ortega MD [address] [place] [address] Referral ID Status Reason Start Date Expiration Date Visits Requested Visits Authorized [id number] Pending Review PCP Requested Referral 4 08/21/2024 1 1 Specialty Diagnoses / Procedures Referred By Contac t Referred To Contact Diagnoses Mood disorder (HCC) Procedures CONSULT TO WEB PAGE DEVELOPER (AG IMCA/CFM ONLY) Johann Montiel MD [address] [place] [address] Referral ID Status Reason Start Date Expiration Date Visits Requested Visits Authorized [id number] Ref Not Required PCP Requested Referral 4 08/25/2024 1 1 Additional Source Comments INFORMATION SOURCE (unrecogn ized section and content) DATE CREATED AUTHOR 08/19/2018 [facility] DATE CREATED AUTHOR AUTHOR'S ORGANIZ ATION 07/14/2024 [facility] DATE CREATED AUTHOR AUTHOR'S ORGANIZ ATION 04/14/2025 [facility] DATE CREATED AUTHOR AUTHOR'S ORGANIZ ATION 05/13/2025 [facility] Source Comments (unrecognize d section and content) In the event this informatio n is protected by the Federal Confidentiality of Alcohol and Drug Abuse Patient Records regulations: The Federal rules restrict any use of the information to criminally investigate or prosecute any alcohol or drug abuse patient.[facility] HospitalIn the event this information is protected by the Federal Confidentiality of Alcohol and Drug Abuse Patient Records regulations: The Federal rules restrict any use of the information to criminally investigate or prosecute any alcohol or drug abuse patient.[facility] HospitalIn the event this information is protected by the Federal Confidentiality of Alcohol and Drug Abuse Patient Records regulations: The Federal rules restrict any use of the information to criminally investigate or prosecute any alcohol or drug abuse patient.[facility] HospitalIn the event this information is protected by the Federal Confidentiality of Alcohol and Drug Abuse Patient Records regulations: The Federal rules restrict any use of the information to criminally investigate or prosecute any alcohol or drug abuse patient.[facility] HospitalIn the event this information is protected by the Federal Confidentiality of Alcohol and Drug Abuse Patient Records regulations: The Federal rules restrict any use of the information to criminally investigate or prosecute any alcohol or drug abuse patient.[facility] HospitalIn the event this information is protected by the Federal Confidentiality of Alcohol and Drug Abuse Patient Records regulations: The Federal rules restrict any use of the information to criminally investigate or prosecute any alcohol or drug abuse patient.[facility] HospitalIn the event this information is protected by the Federal Confidentiality of Alcohol and Drug Abuse Patient Records regulations: The Federal rules restrict any use of the information to criminally investigate or prosecute any alcohol or drug abuse patient.[facility] HospitalIn the event this information is protected by the Federal Confidentiality of Alcohol and Drug Abuse Patient Records regulations: The Federal rules restrict any use of the information to criminally investigate or prosecute any alcohol or drug abuse patient.[facility] Reason for Visit (unrecogniz ed section and content) Reason Onset Date Comments PHMA/Care Gap Outreach 10/14/2021 Reason Comments requests test Reason Comments Establish Care RT side arm, breast, and leg w/o injury x 1 month Patient has hidradenitis thinks pain is associated with disorder Reason Comments Appointment Reason Onset Date Comments ED outreach 09/24/2024 09/23/24 [facility] Care Teams (unrecognized sec tion and content) Head Of Talent Management Relationship Specialty Start Date End Date Joey Bradshaw MD [address] [place], [place] [id number] PCP - General Family Practice 09/24/14 Head Of Talent Management Relationship Specialty Start Date End Date Joey Bradshaw MD [address] [place], [place] [id number] PCP - General Family Practice 09/24/14 Head Of Talent Management Relationship Specialty Start Date End Date Joey Bradshaw MD [address] [place], [place] [id number] PCP - General Family Medicine 09/24/14 Team Status: Active Member Role Status Dates Dr. Joey Bradshaw MD Family Provider Active Dr. Joey Bradshaw MD Primary Care Provider Active Team Status: Inactive Member Role Status Dates Dr. Joey Bradshaw MD Primary Care Provider Active Dr. Olegario Hastings MD Emergency Provider Active Head Of Talent Management Relationship Specialty Start Date End Date Riya Silverio DO [address] [place], [place] [id number] PCP - General Family Medicine 05/23/24 Anastasiia Joaquin MD [address] [place] [address] [place], [place] [id number] PCP Resident Family Medicine 05/23/24 Head Of Talent Management Relationship Specialty Start Date End Date Riya Silverio DO [address] [place], [place] [id number] PCP - General Family Medicine 05/23/24 Anastasiia Joaquin MD [address] [place] [address] PCP Resident Family Medicine 05/23/24 Head Of Talent Management Relationship Specialty Start Date End Date Riya Silverio DO [address] [place] [address] PCP - General Family Medicine 05/23/24 Anastasiia Joaquin MD [address] [place] [address] PCP Resident Family Medicine 05/23/24 Head Of Talent Management Relationship Specialty Start Date End Date Riya Silverio DO [address] [place] [address] PCP - General Family Medicine 05/23/24 Anastasiia Joaquin MD [address] [place] [address] PCP Resident Family Medicine 05/23/24 Head Of Talent Management Relationship Specialty Start Date End Date Riya Silverio DO [address] [place], [place] [id number] PCP - General Family Medicine 05/23/24 Anastasiia Joaquin MD [address] [place] [address] PCP Resident Family Medicine 05/23/24 Team Status: [...] BE BASED ON THE PRIMARY CLINICAL RECORDS. [employer] provides no warranty or guarantee of the accuracy or completeness of information in this document.
[2025-06-21 17:44] LABS: Anion Gap 12 (5-15); BUN 32 mg/dL (4-19); BUN/Creat Ratio 10.5 RATIO (10-20); Calcium,Total 7.8 mg/dL (7.6-11.0); Carbon Dioxide 21.8 mmol/L (21.0-32.0); Chloride 106 mmol/L (98-108); Estimated Creatinine Clearance 25.50 ml/min (50-250); Glucose 325 mg/dL (70-99); Potassium 4.4 mmol/L (3.3-5.1)
--- NOTE | 2025-06-21 17:47 | CPS ---
According to Medic from [facility], patient was unable to tolerate CPAP mask in squad. Patient reported having used BiPAP on past hospital visit. Patient very apprehensive about BiPAP mask, stating I feel like I'm suffocating. Patient medicated with Ativan and eventually placed on BiPAP around 1715. Patient tolerated mask for about 20 minutes starting at 8/4 and titrated to 16/8 and 35%. Mask removed and placed back on NRB at 15 lpm.
[2025-06-21 18:08] LABS: Troponin T High Sensitivity 195 ng/L (<=14)
--- NOTE | 2025-06-21 18:27 | ECHOL_ITS ---
Reason For Study Reason For Study: CONGESTIVE HEART FAILURE Procedure This was a limited 2D transthoracic echocardiogram. The patient is in sinus rhythm. The study was technically difficult. Exam performed portable in ICU/CCU. Left Ventricle Normal LV size. Mild concentric left ventricular hypertrophy. The estimated ejection fraction is 35-40% %. Right Ventricle Normal right ventricle. Normal systolic function. Atria The left and right atria are normal. Mitral Valve Mild diffuse mitral valve thickening. There is no mitral valve stenosis. Mild- Moderate (1-2+) mitral valve insufficiency. Tricuspid Valve Normal tricuspid valve. There is no tricuspid stenosis. Trivial tricuspid valve insufficiency. Right ventricular systolic pressure estimated to be 35-40 mmHg. mmHg. Mild pulmonary hypertension. Aortic Valve Trisinus/trileaflet aortic valve. Mild diffuse aortic valve thickening. There is no aortic stenosis. No aortic valve insufficiency. Pulmonic Valve Normal pulmonic valve. There is no pulmonic valvular stenosis. No pulmonic valve insufficiency. Great Vessels IVC normal size with respiratory collapse. Pericardium/Pleural No pericardial effusion. Moderate size left pleural effusion. MMode/2D Measurements & Calculations LVIDd: 4.7 cm IVSd: 1.2 cm LAV(MOD- bp): 47.5 ml LVIDs: 3.5 cm LVPWd: 1.2 cm LAV(MOD- bp) Indexed: 24.3 ml/m2 RVDd: 3.4 cm FS: 25.2 % LAV(MOD- sp2): 60.8 ml LAV(MOD- sp4): 36.4 ml LVAd ap4: 29.5 cm2 LVAd ap2: 30.9 cm2 EDV(MOD- bp): 94.4 ml LVLd ap4: 7.9 cm LVLd ap2: 8.4 cm ESV(MOD- bp): 56.8 ml EDV(MOD-sp4): 90.3 ml EDV(MOD-sp2): 96.1 ml EF(MOD- bp): 39.8 % EDV(sp4-el): 93.9 ml EDV(sp2-el): 96.2 ml LVAs ap4: 20.9 cm2 LVAs ap2: 22.7 cm2 LVLs ap4: 6.7 cm LVLs ap2: 7.2 cm ESV(MOD-sp4): 53.4 ml ESV(MOD-sp2): 58.9 ml ESV(sp4-el): 55.8 ml ESV(sp2-el): 61.0 ml EF(MOD-sp4): 40.9 % EF(MOD-sp2): 38.7 % EF(sp4-el): 40.6 % SV(MOD-sp4): 36.9 ml SV(MOD-sp2): 37.2 ml SV(sp4- el): 38.1 ml SI(MOD-sp4): 18.9 ml/m2 SI(MOD-sp2): 19.0 ml/m2 Ao sinus diam: 2.5 cm LA dimension(2D): 4.1 cm LA A4 area: 15.7 cm2 RA A4 area: 11.0 cm2 TAPSE: 2.0 cm Time Measurements MV dec time: 0.16 sec Doppler Measurements & Calculations MV E max anders: 79.6 cm/sec Lat Peak E' Anders: 10.0 cm/sec Med Peak E' Anders: 9.1 cm/sec MV A max anders: 67.3 cm/sec E/E' lat: 8.0 E/E' med: 8.7 MV E/A: 1.2 TR max anders: 304.8 cm/sec MV dec slope: 502.8 cm/sec2 TR max P.2 mmHg ECHO/Echo, Limited Study Interpretation Summary The estimated ejection fraction is 35-40% %. Normal LV size. Mild concentric left ventricular hypertrophy. Mild-Moderate (1-2+) mitral valve insufficiency. Right ventricular systolic pressure estimated to be 35-40 mmHg. mmHg. Mild pulmonary hypertension. IVC normal size with respiratory collapse. Compared to prior study, there is no significant change. Ordering Physician: Jl Clements Referring Physician: N/A Performed By: Maryan Herrmann RDCS
--- NOTE | 2025-06-21 18:49 | PCM.HP.STD ---
HPI - General General Date of Admission: 06/21/25 Date of Service: 06/21/25 Chief Complaint: Shortness of breath HPI Narrative MINDY GILLILAND, is a 44 F who presents to the emergency room with a chief complaint of shortness of breath, patient is poor informant and she cannot tell me when the actual breathing distress started. Patient was in marked respiratory distress on BiPAP, she was tachypneic, tachycardic, and using accessory muscles to maintain her oxygenation. She was not able to provide me adequate history for a complete review of systems. Patient was here in May 2025 for congestive heart failure, this was a new diagnosis and she was noted to have an hide cardiomyopathy with an EF of 35%. During that workup she had a pharmacological stress test that was negative for reversible ischemia. During that admission, patient checked herself on the hospital AGAINST MEDICAL ADVICE even though prescriptions were phoned in for her. She confirmed with me tonight that she does not follow-up with a physician and she can give me a reason why. Workup in the emergency room included chest x-ray which showed ill-defined opacities at the lung bases with vascular indistinctness in a pattern favoring pulmonary edema. There is a moderate right pleural effusion noted and a small left pleural effusion. Labs included a CBC which was abnormal for hemoglobin of 9.4, chemistry profile was abnormal for a creatinine of 3.03, BUN of 32, and glucose of 325. Patient's troponin was elevated at 195, beta natruretic peptide was elevated at 38,069. Patient was given IV Lasix, she required BiPAP to maintain her pulse ox above 90%. Patient will be admitted to ICU on a Lasix drip, echocardiogram will be obtained, pulse ox will be monitored, labs will be monitored, patient will be placed on sliding scale insulin per fingerstick blood sugars. [facility] Medical History Substance abuse Wears dentures Wears glasses Anxiety Diabetes Kidney stones Anemia Back pain Injury of back Migraine headache Injury of head and neck Loss of consciousness Gastric reflux Smoker Leg cramps History of pain when walking History of edema Hx of hidradenitis suppurativa Personal history of Methicillin resistant Staphylococcus aureus infection Right axillary hidradenitis Arthritis Smoker DM type 2 (diabetes mellitus, type 2) Home Medications ?Medication ?Instructions ?Recorded ?Last Taken ?Type carvedilol 12.5 mg tablet 12.5 mg PO BIDCM #60 tabs 05/21/25 Unknown Rx furosemide 20 mg tablet 60 mg (3 x 20 mg) PO DAILY #90 tabs 05/21/25 Unknown Rx gabapentin 100 mg capsule 200 mg (2 x 100 mg) PO Q8H PRN PRN 05/21/25 Unknown Rx leg discomfort #180 caps hydralazine 25 mg tablet 50 mg (2 x 25 mg) PO TID #180 tabs 05/21/25 Unknown Rx insulin glargine-yfgn 100 unit/mL 20 unit (0.2 mL) subcut DAILY #5 mL 05/21/25 Unknown Rx (3 mL) subcutaneous pen Allergy/AdvReac Type Severity Reaction Status Date / Time hydrocodone bitartrate (From AdvReac Vomiting Verified 06/21/25 16:47 Vicodin) hydromorphone HCl (From AdvReac Other Verified 06/21/25 16:47 Dilaudid) tramadol AdvReac Other Verified 06/21/25 16:47 Family History Other Diabetes Surgical History Hx of tooth extraction History of cystoscopy Hidradenitis Social History household members: none Smoking Status: Current every day smoker tobacco type: cigars second hand exposure: Yes alcohol intake: former substance use type: marijuana additional social history: Does Not Take Aspirin Does Take Ibuprofen As Needed ROS Review of Systems ROS Unobtainable: other Details: Patient was not able to provide me a complete review of systems due to extreme respiratory embarrassment with rapid respirations Patient's Goals Of Care . What would you like to achieve or improve as a result of your hospital stay?: Stabilization of medical problems, improvement in breathing Vital Signs Vital Signs Vital Signs: 06/21/25 16:47 06/21/25 16:50 06/21/25 16:50 Temperature 97.5 F L Temperature Source Temporal Pulse Rate 123 H 128 H Respiratory Rate 34 H Respiratory Effort Short of Breath Labored Respiratory Depth Shallow Respiratory Pattern Tachypnea Blood Pressure 166/142 H 221/125 H Blood Pressure Mean 150 157 Pulse Ox 100 Oxygen Delivery Method Bi-pap Non-Rebreather Oxygen Flow Rate (L/min) 15 Fraction of Inspired Oxygen (FIO2) 06/21/25 17:04 06/21/25 17:15 06/21/25 17:20 Temperature Temperature Source Pulse Rate 129 H 130 H Respiratory Rate 32 H Respiratory Effort Respiratory Depth Respiratory Pattern Blood Pressure 190/127 H Blood Pressure Mean 148 Pulse Ox 100 Oxygen Delivery Method Non-Rebreather Oxygen Flow Rate (L/min) Fraction of Inspired Oxygen (FIO2) 50 06/21/25 17:22 06/21/25 17:25 06/21/25 17:30 Temperature Temperature Source Pulse Rate 132 H 127 H Respiratory Rate 35 H 30 H Respiratory Effort Respiratory Depth Respiratory Pattern Blood Pressure 190/127 H 200/139 H 197/148 H Blood Pressure Mean 148 159 164 Pulse Ox 100 97 Oxygen Delivery Method Non-Rebreather Bi-pap Oxygen Flow Rate (L/min) Fraction of Inspired Oxygen (FIO2) 06/21/25 17:30 06/21/25 17:36 06/21/25 17:42 Temperature 97.5 F L Temperature Source Core Pulse Rate 127 H Respiratory Rate 31 H Respiratory Effort Respiratory Depth Respiratory Pattern Blood Pressure 197/148 H 194/141 H 178/140 H Blood Pressure Mean 164 158 152 Pulse Ox 100 Oxygen Delivery Method Non-Rebreather Oxygen Flow Rate (L/min) Fraction of Inspired Oxygen (FIO2) 06/21/25 17:50 06/21/25 18:01 06/21/25 18:06 Temperature 97.4 F L Temperature Source Oral Pulse Rate 121 H 122 H Respiratory Rate 25 H 25 H Respiratory Effort Respiratory Depth Respiratory Pattern Blood Pressure 186/119 H 186/114 H Blood Pressure Mean 141 138 Pulse Ox 96 95 96 Oxygen Delivery Method Nasal Cannula Nasal Cannula Bi-pap Oxygen Flow Rate (L/min) 4 4 Fraction of Inspired Oxygen (FIO2) 06/21/25 18:06 06/21/25 18:30 06/21/25 18:30 Temperature 96.8 F L Temperature Source Pulse Rate 122 H 122 H Respiratory Rate 28 H 28 H Respiratory Effort Respiratory Depth Respiratory Pattern Blood Pressure 176/128 H 176/128 H Blood Pressure Mean 144 144 Pulse Ox 96 96 Oxygen Delivery Method Bi-pap Oxygen Flow Rate (L/min) Fraction of Inspired Oxygen (FIO2) 35 30 06/21/25 18:43 Temperature Temperature Source Pulse Rate 122 H Respiratory Rate 28 H Respiratory Effort Respiratory Depth Respiratory Pattern Blood Pressure 176/103 H Blood Pressure Mean 127 Pulse Ox 98 Oxygen Delivery Method Bi-pap Oxygen Flow Rate (L/min) Fraction of Inspired Oxygen (FIO2) 30 Weight Weight: 93.6 kg Body Mass Index (BMI) 36.5 Physical Exam Const alert, no apparent distress and average body habitus Constitutional Narrative: Patient appeared in marked respiratory distress with tachypnea and accessory muscle usage General Appearance: cooperative, well kempt and well developed Orientation / Consciousness: awake, oriented to person and oriented to place HEENT normocephalic, head/scalp atraumatic, hearing grossly normal bilaterally and moist oral mucous membranes Eyes PERRL, EOMs intact bilaterally and conjunctivae normal Neck supple, no JVD, thyroid normal and no carotid bruits General: trachea midline Resp Resp Narrative: Abnormal respiratory effort with shallow rapid respirations, use of accessory muscles, and tachypnea, breath sounds were diminished bilaterally Auscultation: Negative for rales, rhonchi or wheezes Cardio regular rate, regular rhythm, no murmurs, no rub and no gallops Cardio Narrative: Heart rate and rhythm is tachycardic GI normal to inspection, nondistended, normoactive bowel sounds, soft to palpation, non-tender and non-distended Extremity Extremity Narrative: Patient has marked edema in the truncal area and over both legs, this edema is pitting Skin no rashes or lesions noted General Skin Exam: no breakdown Neuro CN's II-XII intact bilaterally, moves all extremities, no focal motor deficits and no sensory deficits noted Neuro Narrative: Patient is talking rapidly due to shortness of breath Sensorium / Orientation: awake, alert, oriented to person and oriented to place Psych Psych Narrative: Patient is alert, she appears to be mildly anxious but not agitated Results Lab / Micro Data 06/21/25 17:05 06/21/25 17:05 Labs: Laboratory Results - last 24 hr 06/21/25 16:54: POC Glucose 301 H 06/21/25 17:05: WBC 10.1, RBC 3.35 L, Hgb 9.4 L, Hct 29.5 L, MCV 88.1, MCH 28.1, MCHC 31.9 L, RDW Std Deviation 42.6, RDW Coeff of Giselle 13.2, Plt Count 420, MPV 11.0, Immature Gran % (Auto) 0.400, Neut % (Auto) 75.1 H, Lymph % (Auto) 19.0, [place] % (Auto) 3.9, Eos % (Auto) 0.9, Baso % (Auto) 0.7, Absolute Neuts (auto) 7.6, Absolute Lymphs (auto) 1.92, Nucleated RBC % 0, Sodium 139, Potassium 4.4, Chloride 106, Carbon Dioxide 21.8, Anion Gap 12, BUN 32 H, Creatinine 3.03 H, Estim Creat Clear Calc 25.50 L, Est GFR (MDRD) Non-Af 19 L, BUN/Creatinine Ratio 10.5, Glucose 325 H, Calcium 7.8, Troponin T High Sens 195 H* D, [place] [address] H ABG Data ABG results: ABG 06/21/25 17:14 Specimen Type RODRIGUE Sample Site Not entered VBG pH 7.26 L VBG pO2 41 H VBG HCO3 24 VBG Total CO2 26 VBG O2 Sat (Calc) 67 VBG Base Excess -3 L POC Mix VBG pCO2 Pt Tmp 54.3 H O2 Delivery Device Not entered Imaging Radiology Impression Chest X-Ray 06/21/25 17:08 IMPRESSION: Pulmonary findings as above. Reading Location: [facility] Assessment & Plan Assessment/Plan (1) CHF (congestive heart failure): PLAN: Plan 1. Acute hypoxic respiratory failure secondary to acute on chronic congestive heart failure with reduced ejection fraction-patient will be admitted to ICU, oxygen will be weaned if possible, pulse ox will be monitored, patient confirmed that she wants to be a full code. #2 acute on chronic congestive heart failure with reduced ejection fraction-patient will be kept on IV Lasix for diuresis, I have elected to place her on Coreg-it is unknown whether she is taking this at home and I do not think it is a good idea of stopping it, also she is in hypertensive emergency and would benefit from additional agents to control her blood pressure. Limited echocardiogram will be obtained tomorrow #3 acute kidney injury-patient's creatinine is still elevated, I suspect she has an element of chronic kidney disease but it has not been 90 days since she has been in the hospital last so I do not know if for renal function is stable at this time or declining. Labs will be monitored, it may be necessary to have nephrology see the patient. #4 type 2 diabetes-blood sugars will be monitored, sliding scale insulin will be administered as needed #5 noncompliance with medical regimen-it is obvious the patient is noncompliant with following up with any healthcare providers, I do not actually know the reason for this. She will need close follow-up when she is discharged from the hospital, again the last time she was in the hospital she signed herself out AGAINST MEDICAL ADVICE. #5 hypertensive emergency-patient will remain on a nitroglycerin drip for blood pressure control, she may need additional agents added to bring her blood pressure under control. #6 elevated troponin-this is probably secondary to demand ischemia, patient had no complaints to this examiner about any chest pain Total clinical time spent by myself addressing patient's medical issues, reviewing all of her data, and collaborating with patient's care team: 75 minutes Charges/Coding Visit Charges Inpatient E&M: 15456 Init Hosp L3
--- OUTSIDE RECORDS SUMMARY | 2025-06-21 19:01 | XMS RPT_ITS | CCD ---
Author Organization [facility] Inform ion [facility] Care Team Providers Care Contact Centre Supervisor Name Role Phone Pierce Pemberton MD Unavailable Porsha Salas Unavailable Unavailable Joey Bradshaw MD Primary Care Provider [phone] Joey Bradshaw MD Primary Care Provider Riya Silverio DO Primary Care Provider Anastasiia Joaquin MD Unavailable [phone] Care Physician, No Primary Primary Care Provider Unavailable Dr. Jose Garza DO Emergency Provider [phone] RIYA SILVERIO Primary Care Unavailable ANASTASIIA JOAQUIN [...] [HYDROCODONE-ACET AMINOPHEN] Drug Allergy 3 GI Upset [facility] Other [place] Repository (10 sources) HYDROmorphone; Translations: [HYDROMORPHONE (BULK)] Drug Allergy 3 Mental Status Change [facility] Repository (14 sources) traMADol; Translations: [TRAMADOL] Drug Allergy 6 Other: See Comments [facility] Comment on above: HEART RACING (4 sources) HYDROcodone; Translations: [hydrocodone bitartrate] Drug Allergy 2 Vomiting [facility] (4 sources) HYDROmorphone; Translations: [hydromorphone HCl] Drug Allergy 2 Other [facility] Medications Current Medications Medication Drug Class(es) [...] One tablet by mouth daily AMITRIPTYLINE HCL [id number] Austin Bello DO Comment on above: Take [...] on above: Take 1 capsule by mo [facility] one time a week. doxycycline monohydrate [...] tablet by mouth twice daily DOXYCYCLINE HYCLATE [id number] Natacha Alfred LPN Start: 04-21-2013 End: 05-15-2013 take 1 capsule by mouth twice daily Doxycycline Hyclate 100 MG capsule Discontinued 100 mg PO TWICE A DAY April 21, 2013 12:00am May 15, 2013 1:37pm Start: 03-14-2012 End: 08-27-2012 take 1 tablet by mouth twice daily VIBRAMYCIN 100 MG CAPS One tablet by mouth twice daily DOXYCYCLINE HYCLATE [id number] Pierce Pemberton MD Start: 03-14-2012 End: 08-27-2012 take 1 tablet by mouth twice daily VIBRAMYCIN 100 MG CAPS One tablet by mouth twice daily DOXYCYCLINE HYCLATE [id number] Pierce Pemberton MD Start: 06-08-2011 End: 08-27-2012 take 1 tablet by mouth once daily at mealtime DOXYCYCLINE HYCLATE 100 MG TABS 1 tab by mouth daily with food. DOXYCYCLINE HYCLATE [id number] Pierce Pemberton MD Comment on above: Take 1 capsule by mo [facility] twice daily. ibuprofen 600 mg oral [...] twice daily as needed for pain IBUPROFEN [id number] Pierce Pemberton MD Comment on above: Take [...] glargine LANTUS 100 UNIT/ML SOLN INSULIN GLARGINE [id number] Pierce Pemberton MD 08-26-2013 [facility] ([id number]) 08/26/2013 Active Start: 08-26-2013 LANTUS 100 UNI T/ML SOLN INSULIN GLARGINE [id number] Pierce Pemberton MD Comment on above: insulin glargine PORFIRIO TUS 100 UNIT/ML SOLN INSULIN GLARGINE [id number] Pierce Pemberton MD 08-26-2013 [facility] ([id number]) Inject 13 Units subc utaneously twice daily. [...] Two tablets by mouth daily METFORMIN HCL [id number] Austin Bello DO take 1 tablet by greg th twice daily METFORMIN HCL ER (OSM) 1000 MG [id number] One tablet by mouth twice daily METFORMIN HCL 65364741351 Pierce Pemberton MD take 1 tablet by greg th twice daily METFORMIN HCL ER (OSM) 1000 MG [id number] One tablet by mouth twice daily METFORMIN HCL 29087120700 Pierce Pemberton MD Comment on above: Take [...] One tablet by mouth twice daily SULFAMETHOXAZOLE-TRIMETHOPRIM 41248807064 Natacha Alfred LPN Start: 08-27-2012 take 1 tablet by greg th twice daily BACTRIM DS 800-160 MG TABS One tablet by mouth twice daily SULFAMETHOXAZOLE-TRIMETHOPRIM 90332104907 Pierce Pemberton MD Start: 08-27-2012 End: 07-14-2014 take 1 tablet by mouth twice daily BACTRIM DS 800-160 MG TABS One tablet by mouth twice daily SULFAMETHOXAZOLE-TRIMETHOPRIM [id number] Natacha Alfred LPN Completed/Discontinued Medications Medication Drug [...] mouth daily as needed for pain OXYCODONE-ACETAMINOPHEN 92475062160 Pierce Pemberton MD Start: 07-12-2015 End: 03-07-2017 take 1 tablet by mouth once daily as needed for pain PERCOCET 7.5-325 MG TABS One tablet by mouth daily as needed for pain OXYCODONE-ACETAMINOPHEN [id number] Natacha Alfred LPN Start: 07-12-2015 take 1 tablet by greg th once daily as needed for pain PERCOCET 7.5-325 MG TABS One tablet by mouth daily as needed for pain OXYCODONE-ACETAMINOPHEN [id number] Pierce Pemberton MD Start: 01-22-2015 End: 03-07-2017 take 1 tablet by mouth twice daily as needed for pain PERCOCET 7.5-325 MG TABS One tablet by mouth twice daily as needed for pain OXYCODONE-ACETAMINOPHEN [id number] Pierce Pemberton MD Start: 01-22-2015 End: 03-07-2017 take 1 tablet by mouth twice daily as needed for pain PERCOCET 7.5-325 MG TABS One tablet by mouth twice daily as needed for pain OXYCODONE-ACETAMINOPHEN 57978561457 Natacha Alfred LPN Start: 01-22-2015 take 1 tablet by greg th twice daily as needed for pain PERCOCET 7.5-325 MG TABS One tablet by mouth twice daily as needed for pain OXYCODONE-ACETAMINOPHEN [id number] Pierce Pemberton MD Start: 11-20-2014 End: 03-07-2017 take 1-2 tablets by mouth four times daily as needed for pain PERCOCET 7.5-325 MG TABS one to two tablets by mouth four times daily as needed for pain OXYCODONE-ACETAMINOPHEN 64971147361 Natacha Alfred LPN Start: 11-20-2014 take 1-2 tablets by mouth four times daily as needed for pain PERCOCET 7.5-325 MG TABS one to two tablets by mouth four times daily as needed for pain OXYCODONE-ACETAMINOPHEN [id number] Pierce Pemberton MD Start: 10-29-2014 End: 03-07-2017 take 1-2 tablets by mouth four times daily as needed for pain PERCOCET 5-325 MG TABS one to two tablet s by mouth four times daily as needed for pain OXYCODONE-ACETAMINOPHEN [id number] Natacha Alfred LPN Start: 10-29-2014 take 1-2 tablets by mouth four times daily as needed for pain PERCOCET 5-325 MG TABS one to two tablet s by mouth four times daily as needed for pain OXYCODONE-ACETAMINOPHEN [id number] Pierce Pemberton MD Start: 10-21-2014 End: 03-07-2017 take 1-2 tablets by mouth four times daily as needed for pain PERCOCET 7.5-325 MG TABS one to two tablets by mouth four times daily as needed for pain OXYCODONE-ACETAMINOPHEN [id number] Natacha Alfred LPN Start: 10-21-2014 End: 03-07-2017 take 1-2 tablets by mouth four times daily as needed for pain PERCOCET 7.5-325 MG TABS one to two tablets by mouth four times daily as needed for MODERATE pain OXYCODONE-ACETAMINOPHEN 69146844400 Natacha Alfred LPN Start: 10-21-2014 take 1-2 tablets by mouth four times daily as needed for pain PERCOCET 7.5-325 MG TABS one to two tablets by mouth four times daily as needed for MODERATE pain OXYCODONE-ACETAMINOPHEN [id number] Pierce Pemberton MD Start: 07-29-2014 End: 03-07-2017 take 1-2 tablets by mouth four times daily as needed for pain PERCOCET 5-325 MG TABS one to two tablet s by mouth four times daily as needed for pain OXYCODONE-ACETAMINOPHEN 38037128470 Natacha Alfred LPN Start: 07-29-2014 take 1-2 tablets by mouth four times daily as needed for pain PERCOCET 5-325 MG TABS one to two tablet s by mouth four times daily as needed for pain OXYCODONE-ACETAMINOPHEN [id number] Pierce Pemberton MD Start: 07-22-2014 End: 07-12-2015 take 1-2 tablets by mouth four times daily as needed for pain PERCOCET 5-325 MG TABS one to two tablet s by mouth four times daily as needed for pain OXYCODONE-ACETAMINOPHEN [id number] Natacha Alfred LPN Start: 07-22-2014 take 1-2 tablets by mouth four times daily as needed for pain PERCOCET 5-325 MG TABS one to two tablet s by mouth four times daily as needed for pain OXYCODONE-ACETAMINOPHEN [id number] Pierce Pemberton MD Start: 07-14-2014 take 1 tablet by greg th four times daily as needed for pain PERCOCET 5-325 MG TABS One tablet by mouth four times daily as needed for pain OXYCODONE-ACETAMINOPHEN 24096324009 Pierce Pemberton MD Start: 07-14-2014 End: 07-12-2015 take 1 tablet by mouth four times daily as needed for pain PERCOCET 5-325 MG TABS One tablet by mouth four times daily as needed for pain OXYCODONE-ACETAMINOPHEN 58886891772 Natacha Alfred LPN Start: 06-01-2013 End: 07-12-2013 [...] times daily as needed for pain OXYCODONE-ACETAMINOPHEN [id number] Pierce Pemberton MD Start: 08-27-2012 End: 08-26-2013 take 1-2 tablets by mouth four times daily as needed for pain PERCOCET 5-325 MG TABS one to two tablet s by mouth four times daily as needed for pain OXYCODONE-ACETAMINOPHEN 11225707940 Pierce Pemberton MD Start: 03-14-2012 End: 03-07-2017 take 1-2 tablets by mouth four times daily as needed for pain PERCOCET 5-325 MG TABS one to two tablet s by mouth four times daily as needed for pain OXYCODONE-ACETAMINOPHEN [id number] Natacha Giang Alfred BRE Start: 03-14-2012 take 1-2 tablets by mouth four times daily as needed for pain PERCOCET 5-325 MG TABS one to two tablet s by mouth four times daily as needed for pain OXYCODONE-ACETAMINOPHEN [id number] Pierce Pemberton MD Start: 03-14-2012 End: 08-27-2012 take 1-2 tablets by mouth four times daily as needed for pain PERCOCET 5-325 MG TABS one to two tablet s by mouth four times daily as needed for pain OXYCODONE-ACETAMINOPHEN 28627264032 Pierce Pemberton MD End: 08-27-2012 PERCOCET 5-325 MG TABS One t ablet by mouth six times daily, as needed OXYCODONE-ACETAMINOPHEN 60595216968 Austin Bello DO PERCOCET 5-325 M G TABS One tablet by mouth six times daily, as needed OXYCODONE-ACETAMINOPHEN 97195617956 Austin Bello DO End: 08-27-2012 PERCOCET 5-325 MG TABS One t ablet by mouth six times daily, as needed OXYCODONE-ACETAMINOPHEN 11573814309 Pierce Pemberton MD apple cider vinegar 500 [...] tablet by mouth twice daily CIPROFLOXACIN HCL 62215830024 Natacha Alfred LPN clindamycin 300 mg oral [...] LOTN apply twi ce daily CLINDAMYCIN PHOSPHATE 29630282032 Austin Bello DO End: 07-12-2015 CLINDAMYCIN HCL CAPS CLINDAM YCIN HCL CAPS 83114394752 Natacha Alfred LPN CLINDAMYCIN HCL CAPS CLINDAMYCIN HCL CAPS 81244502906 Natacha Rahat Alfred LPN End: 08-27-2012 CLEOCIN-T 1 % LOTN apply twi ce daily CLINDAMYCIN PHOSPHATE 86424086371 Pierce Pemberton MD CLEOCIN-T 1 % LO TN apply twice daily CLINDAMYCIN PHOSPHATE 66402586487 Austin Bello DO diazePAM 5 mg oral tablet (13 sources) Benzodiazepine Start: 07-29-2014 End: 03-07-2017 take 1 tablet by mouth four times daily as needed for muscle spasms VALIUM 5 MG TABS One tablet by mouth four times daily as needed for spasm DIAZEPAM [id number] Pierce Pemberton MD docusate sodium 100 mg oral capsule (20 sources) Start: 09-24-2019 End: 01-25-2021 take 1 capsule by mouth once daily Docusate Sodium 100 MG capsule Discontinued 100 mg PO DAILY September 24, 2019 12:00am January 25, 2021 3:47pm Start: 10-21-2014 End: 03-07-2017 take 1 tablet by mouth twice daily COLACE 100 MG CAPS One tablet by mouth twice daily DOCUSATE SODIUM 54148433710 Natacha Alfred LPN Start: 10-21-2014 End: 03-07-2017 take 1 tablet by mouth twice daily COLACE 100 MG CAPS One tablet by mouth twice daily DOCUSATE SODIUM 53728979824 Natacha Alfred LPN take 2 tablets by mo [facility] once daily DOC-Q-LACE LIQD Two tablets by mouth daily DOCUSATE SODIUM LIQD 43343878877 Austin Bello DO End: 08-27-2012 take 2 tablets by mouth once daily DOC-Q-LACE LIQD Two tablets by mouth daily DOCUSATE SODIUM LIQD 43118678776 Pierce Pemberton MD DOCUSATE SODIUM LIQD (6 sources) End: 08-27-2012 take 2 tablets by mouth once daily DOC-Q-LACE LIQD Two tablets by mouth daily DOCUSATE SODIUM LIQD 41589935872 iPerce Pemberton MD take 2 tablets by mouth once john ly DOC-Q-LACE LIQD Two tablets by mouth daily DOCUSATE SODIUM LIQD 76449766948 Austin Bello DO ferrous sulfate 325 mg [...] TABS One tablet by mouth daily FLUCONAZOLE 17490692271 Natacha Alfred LPN Start: 06-01-2013 End: 07-12-2013 take 1 tablet by mouth once Fluconazole (Diflucan) 150 MG tablet Discontinued 150 mg PO ONE TIME June 01, 2013 1:00am July 12, 2013 3:51pm gabapentin 600 mg oral tablet (20 sources) Anti-epileptic Agent Start: 08-26-2013 take 2 tablets by mouth once daily NEURONTIN 600 MG TABS Two tablets by mouth daily GABAPENTIN 71022097858 Pierce Pemberton MD End: 08-27-2012 take 1 tablet by mouth once daily GABAPENTIN 600 MG TABS One tablet by mouth daily GABAPENTIN 62750351732 Pierce Pemberton MD End: 07-12-2015 GABAPENTIN CAPS GABAPENTIN C APS 03018664993 Natacha Alfred LPN GABAPENTIN CAPS GABAPENTIN CAPS 25632388412 Natacha Alfred LPN HYDROmorphone hydrochloride 2 mg oral tablet (20 sources) Opioid Agonist Start: 03-29-2012 End: 03-07-2017 take 1-2 tablets by mouth four times daily as needed for pain DILAUDID 2 MG TABS one to two tablets by mouth four times daily as needed for pain HYDROMORPHONE HCL 17352575651 Pierce Pemberton MD INSULIN DETEMIR SOLN (7 sources) Insulin Analogue LEVEMIR FLEXPEN SOPN INSULIN DETEMIR SOLN 22866246043 Austin Bello DO LEVEMIR FLEXPEN SOLN INSULIN DETEMIR SOLN 07342311656 Austin D Bello DO 3 ml insulin lispro 100 unt/ml pen injector (14 sources) Insulin Analogue End: 08-27-2012 HUMALOG KWIKPEN SOLN INSULIN LISPRO (HUMAN) SOLN [id number] Pierce Pemberton MD HUMALOG KWIKPEN SOLN INSULIN LISPRO (HUMAN) SOLN 04873796851 Austin D Bello DO End: 08-27-2012 HUMALOG KWIK[place]EN SOLN INSULIN LISPRO (HUMAN) SOLN 22627750646 Pierce Pemberton MD lactobacillus (14 sources) Start: 07-22-2014 End: 07-12-2015 take 1 tablet by mouth twice daily ACIDOPHILUS PROBIOTIC TABS One tablet by mouth twice daily LACTOBACILLUS 28786337802 Natacha Alfred LPN Start: 07-22-2014 take 1 tablet by greg th twice daily ACIDOPHILUS PROBIOTIC TABS One tablet by mouth twice daily LACTOBACILLUS 65743527716 Pierce Pemberton MD Start: 07-22-2014 End: 07-12-2015 take 1 tablet by mouth twice daily ACIDOPHILUS PROBIOTIC TABS One tablet by mouth twice daily LACTOBACILLUS 34848599169 Natacha Rahat Alfred LPN Start: 07-22-2014 take 1 tablet by greg th twice daily ACIDOPHILUS PROBIOTIC TABS One tablet by mouth twice daily LACTOBACILLUS 02933059109 Pierce Pemberton MD levoFLOXacin 500 mg oral tablet (13 sources) Quinolone Antimicrobial Start: 10-21-2014 End: 03-07-2017 take 1 tablet by mouth once daily LEVAQUIN 500 MG TABS One tablet by mouth daily LEVOFLOXACIN 89878746182 Natacha Alfred LPN metroNIDAZOLE 500 mg oral tablet (20 sources) Nitroimidazole Antimicrobial Start: 03-28-2012 End: 07-12-2015 take 1 tablet by mouth three times daily FLAGYL 500 MG TABS One tablet by mouth three times daily METRONIDAZOLE 81661584890 Pierce Pemberton MD minocycline 100 mg oral tablet (14 sources) Tetracycline-class Drug Start: 07-24-2014 End: 07-12-2015 take 1 tablet by mouth twice daily MINOCYCLINE HCL 100 MG TABS One tablet by mouth twice daily MINOCYCLINE HCL 77228135086 Pierce Pemberton MD naproxen 500 mg oral [...] daily as needed for nausea PROMETHAZINE HCL 87246857984 Natacha Alfred LPN vitamin B12 (3 sources) [...] Mult Confirmon 05-07-2025 ANTI-DNA (DS)AB TNP Normal [facility] Comment on above: Performed By: #### L 501.5200, L100.0100, L500.4050 #### [facility] [address] [place], [address] ANTI-SS-A TNP Normal [facility] Comment on above: Performed By: #### L 501.5200, L100.0100, L500.4050 #### [facility] [address] [place], [address] ANTI-SS-B TNP Normal [facility] Comment on above: Performed By: #### L 501.5200, L100.0100, L500.4050 #### [facility] [address] [place], [address] ANCAon 05-07-2025 Atypical pANCA <1:20 Normal Neg:<1:20 [facility] Comment on above: Result Comment: The atypical pANCA pattern has been observed in a significant percentage of patients with ulcerative colitis, primary sclerosing cholangitis and autoimmune hepatitis. Performed at: [address] [id number] Educational Guidance Counselor: Trey Arias PhD, Phone: [phone] Performed By: #### L 501.5200, L100.0100, L500.4050 #### [facility] [address] [place], [address] Cytoplasmic Ab <1:20 Normal Neg:<1:20 [facility] Comment on above: Performed By: #### L 501.5200, L100.0100, L500.4050 #### [facility] [address] [place], [address] Perinuclear Ab. <1:20 Normal Neg:<1:20 [facility] Comment on above: Result Comment: The presence of positive fluorescence exhibiting P-ANCA or C-ANCA patterns alone is not specific for the diagnosis of Kel's Granulomatosis (WG) or microscopic polyangiitis. Decisions about treatment should not be based solely on ANCA IFA results. The International ANCA Group Consensus recommends follow up testing of positive sera with both NM- 3 and MPO-ANCA enzyme immunoassays. As many as 5% serum samples are positive only by EIA. Ref. AM J Clin Pathol 1999;111:507-513. Performed By: #### L 501.5200, L100.0100, L500.4050 #### [facility] [address] [place], [address] Urine Cultureon 05-07-2025 URC Escherichia coli [place] Count >100,000 Escherichia coli: REACTION Ampicillin Islt [...] TMP SMX Islt FLORINDA <=20 S Normal [facility] Comment on above: Performed By: #### L 400.0001 #### [facility] [address] [facility] [place], [address] CBC W/Diff, Automatedon Absolute Neut Normal 2.0-7.7 [facility] Comment on above: Result Comment: Canc elled via OM: Order cancelled - Patient discharged Performed By: #### L 100.0100, L500.4050 #### [facility] [address] [place], [address] HCT Normal 37-47 [facility] Comment on above: Result Comment: Canc elled via OM: Order cancelled - Patient discharged Performed By: #### L 100.0100, L500.4050 #### [facility] [address] [place], [address] HGB Normal 12.0-15.0 [facility] Comment on above: Result Comment: Canc elled via OM: Order cancelled - Patient discharged Performed By: #### L 100.0100, L500.4050 #### [facility] [address] [place], [address] MCH Normal 27.0-32.0 [facility] Comment on above: Result Comment: Canc elled via OM: Order cancelled - Patient discharged Performed By: #### L 100.0100, L500.4050 #### [facility] [address] [place], [address] MCHC Normal 32-36 [facility] Comment on above: Result Comment: Canc elled via OM: Order cancelled - Patient discharged Performed By: #### L 100.0100, L500.4050 #### [facility] [address] [place], [address] MCV Normal 81-99 [facility] Comment on above: Result Comment: Canc elled via OM: Order cancelled - Patient discharged Performed By: #### L 100.0100, L500.4050 #### [facility] [address] [place], [address] NEUT% Normal 47-70 [facility] Comment on above: Result Comment: Canc elled via OM: Order cancelled - Patient discharged Performed By: #### L 100.0100, L500.4050 #### [facility] [address] [place], [address] PLT Normal 150-450 [facility] Comment on above: Result Comment: Canc elled via OM: Order cancelled - Patient discharged Performed By: #### L 100.0100, L500.4050 #### [facility] [address] [place], [address] RBC Normal 4.2-5.4 [facility] Comment on above: Result Comment: Canc elled via OM: Order cancelled - Patient discharged Performed By: #### L 100.0100, L500.4050 #### [facility] [address] [place], [address] RDW CV Normal 11.6-14.6 [facility] Comment on above: Result Comment: Canc elled via OM: Order cancelled - Patient discharged Performed By: #### L 100.0100, L500.4050 #### [facility] [address] [place], [address] RDW SD Normal 35.1-43.9 [facility] Comment on above: Result Comment: Canc elled via OM: Order cancelled - Patient discharged Performed By: #### L 100.0100, L500.4050 #### [facility] [address] [place], [address] WBC Normal 4.4-11.0 [facility] Comment on above: Result Comment: Canc elled via OM: Order cancelled - Patient discharged Performed By: #### L 100.0100, L500.4050 #### [facility] [address] [place], [address] Comprehensive Metabolic Prof ilon 05-06-2025 ALB Normal 3.5-5.0 [facility] Comment on above: Result Comment: Canc elled via OM: Order cancelled - Patient discharged Performed By: #### L 100.0100, L500.4050 #### [facility] [address] [place], [address] ALK PHOS Normal 35-104 [facility] Comment on above: Result Comment: Canc elled via OM: Order cancelled - Patient discharged Performed By: #### L 100.0100, L500.4050 #### [facility] [address] [place], [address] ALT Normal <=34 [facility] Comment on above: Result Comment: Canc elled via OM: Order cancelled - Patient discharged Performed By: #### L 100.0100, L500.4050 #### [facility] [address] [place], [address] AST Normal <=31 [facility] Comment on above: Result Comment: Canc elled via OM: Order cancelled - Patient discharged Performed By: #### L 100.0100, L500.4050 #### [facility] [address] [place], [address] BUN Normal 4-19 [facility] Comment on above: Result Comment: Canc elled via OM: Order cancelled - Patient discharged Performed By: #### L 100.0100, L500.4050 #### [facility] [address] [place], [address] BUN/CRE Normal 10-20 [facility] Comment on above: Result Comment: Canc elled via OM: Order cancelled - Patient discharged Performed By: #### L 100.0100, L500.4050 #### [facility] [address] [place], [address] Calcium Normal 7.6-11.0 [facility] Comment on above: Result Comment: Canc elled via OM: Order cancelled - Patient discharged Performed By: #### L 100.0100, L500.4050 #### [facility] [address] [place], [address] CL Normal 98-108 [facility] Comment on above: Result Comment: Canc elled via OM: Order cancelled - Patient discharged Performed By: #### L 100.0100, L500.4050 #### [facility] [address] [place], [address] CO2 Normal 21.0-32.0 [facility] Comment on above: Result Comment: Canc elled via OM: Order cancelled - Patient discharged Performed By: #### L 100.0100, L500.4050 #### [facility] [address] [place], [address] CREAT,SERUM Normal 0.70-1.20 [facility] Comment on above: Result Comment: Canc elled via OM: Order cancelled - Patient discharged Performed By: #### L 100.0100, L500.4050 #### [facility] [address] [place], [address] eGFR Normal >60 [facility] Comment on above: Result Comment: Canc elled via OM: Order cancelled - Patient discharged Performed By: #### L 100.0100, L500.4050 #### [facility] [address] [place], [address] GAP Normal 5-15 [facility] Comment on above: Result Comment: Canc elled via OM: Order cancelled - Patient discharged Performed By: #### L 100.0100, L500.4050 #### [facility] [address] [place], [address] GLU Normal 70-99 [facility] Comment on above: Result Comment: Canc elled via OM: Order cancelled - Patient discharged Performed By: #### L 100.0100, L500.4050 #### [facility] [address] [place], [address] Potassium Normal 3.3-5.1 [facility] Comment on above: Result Comment: Canc elled via OM: Order cancelled - Patient discharged Performed By: #### L 100.0100, L500.4050 #### [facility] [address] [place], [address] T BILI Normal 0.00-1.30 [facility] Comment on above: Result Comment: Canc elled via OM: Order cancelled - Patient discharged Performed By: #### L 100.0100, L500.4050 #### [facility] [address] [place], [address] T PROT Normal 5.9-8.4 [facility] Comment on above: Result Comment: Canc elled via OM: Order cancelled - Patient discharged Performed By: #### L 100.0100, L500.4050 #### [facility] [address] [place], [address] Comprehensive Metabolic Profil Normal 133-145 [facility] Comment on above: Result Comment: Canc elled via OM: Order cancelled - Patient discharged Performed By: #### L 100.0100, L500.4050 #### [facility] [address] [place], [address] 12 Lead EKGon 05-05-2025 12 Lead EKG [facility] Cardiovascular Services [address] [place] [address] 12 Lead EKG 05/05/25 0547 MR#: [id number] Acct: [id number] Name: MINDY FAULKNER Rep #: [id number] : 1980 44 From: Lopez Polanco MD Attending Dr: Dr. Mariam Murry MD Status: DIS IN Ordering Dr: Taran Ortega DO Date: 05/05/25 Location: [facility] Sex: F AA Admitted: [...] abnormality Abnormal ECG Confirmed by Lopez Polanco ([id number]), multimedia editor RENETTA FAGN ([id number]) on 05/06/2025 12:34:40 PM Referred By: BITA Confirmed By: Lopez Polanco 05/06/25 1234 Date Lopez Polanco MD CC: Dr. Mariam Murry MD; Taran Ortega DO; No Primary Care Physician Signed Normal [facility] Basic Metabolic Profile (BMP )on 05-05-2025 BUN/CRE 12.6 RATIO Normal 10-20 [facility] Comment on above: Performed By: #### L 400.0001 #### [facility] [address] [place], [address] Calcium [Mass/Vol] 7.7 mg/dL Normal 7.6-11.0 [facility] Comment on above: Performed By: #### L 400.0001 #### [facility] [address] [place], [address] Chloride [Moles/Vol] 110 mmol/L High 98-108 [facility] Comment on above: Performed By: #### L 400.0001 #### [facility] [address] [place], [address] CO2 [Moles/Vol] 17.0 mmol/L Low 21.0-32.0 [facility] Comment on above: Performed By: #### L 400.0001 #### [facility] [address] [place],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 Metabolic Prof ilon 09-23-2024 Albumin [Mass/Vol] 2.2 g/dL Low 3.5-5.0 [facility] Comment on above: Performed By: #### L 501.5200, L100.0100, L500.4050 #### [facility] [address] [place], [address] Albumin/Globulin [Mass ratio] 0.7 {ratio} Low 0.9-2.4 [facility] Comment on above: Performed By: #### L 501.5200, L100.0100, L500.4050 #### [facility] [address] [place], [address] ALK PHOS 73 U/L Normal 35-104 [facility] Comment on above: Performed By: #### L 501.5200, L100.0100, L500.4050 #### [facility] [address] [place], [address] ALT [Catalytic activity/Vol] 15 U/L Normal <=34 [facility] Comment on above: Performed By: #### L 501.5200, L100.0100, L500.4050 #### [facility] [address] [place], [address] AST [Catalytic activity/Vol] 21 U/L Normal <=31 [facility] Comment on above: Result Comment: Hemo lysis present, Results??could be affected. ?? Performed By: #### L 501.5200, L100.0100, L500.4050 #### [facility] [address] [place], [address] BUN/CRE 12.2 RATIO Normal 10-20 [facility] Comment on above: Performed By: #### L 501.5200, L100.0100, L500.4050 #### [facility] [address] [place], [address] Calcium [Mass/Vol] 8.1 mg/dL Normal 7.6-11.0 [facility] Comment on above: Performed By: #### L 501.5200, L100.0100, L500.4050 #### [facility] [address] [place], [address] Chloride [Moles/Vol] 99 mmol/L Normal 98-108 [facility] Comment on above: Performed By: #### L 501.5200, L100.0100, L500.4050 #### [facility] [address] [place], [address] CO2 [Moles/Vol] 24.2 mmol/L Normal 21.0-32.0 [facility] Comment on above: Performed By: #### L 501.5200, L100.0100, L500.4050 #### [facility] [address] [place], [address] Creatinine [Mass/Vol] 0.95 mg/dL Normal 0.70-1.20 [facility] Comment on above: Performed By: #### L 501.5200, L100.0100, L500.4050 #### [facility] [address] [place], [address] ECRCL 70.64 ml/min Normal 50-250 [facility] Comment on above: Performed By: #### L 501.5200, L100.0100, L500.4050 #### [facility] [address] [place], [address] GAP 9 Normal 5-15 [facility] Comment on above: Performed By: #### L 501.5200, L100.0100, L500.4050 #### [facility] [address] [place], [address] GFR/1.73 sq M.predicted among non-blacks MDRD (S/P/Bld) [Vol rate/Area] 75 mL/min/{1.73_m2} Normal >60 [facility] Comment on above: Result Comment: mL/m in/1.73m2 CKD-EPI Creatinine Equation (2020) Performed By: #### L 501.5200, L100.0100, L500.4050 #### [facility] [address] [place], [address] Globulin (S) [Mass/Vol] 3.3 g/dL Normal 2.2-4.2 [facility] Comment on above: Performed By: #### L 501.5200, L100.0100, L500.4050 #### [facility] [address] [place], [address] Glucose [Mass/Vol] 415 mg/dL High 70-99 [facility] Comment on above: Performed By: #### L 501.5200, L100.0100, L500.4050 #### [facility] [address] [place], [address] Potassium [Moles/Vol] 3.6 mmol/L Normal 3.3-5.1 [facility] Comment on above: Result Comment: Hemo lysis present, Results??could be affected. ?? Performed By: #### L 501.5200, L100.0100, L500.4050 #### [facility] [address] [place], [address] Sodium [Moles/Vol] 132 mmol/L Low 133-145 [facility] Comment on above: Performed By: #### L 501.5200, L100.0100, L500.4050 #### [facility] [address] [place], [address] T BILI < 0.15 Normal 0.00-1.30 [facility] Comment on above: Performed By: #### L 501.5200, L100.0100, L500.4050 #### [facility] [address] [place], [address] T PROT 5.6 g/dL Low 5.9-8.4 [facility] Comment on above: Performed By: #### L 501.5200, L100.0100, L500.4050 #### [facility] [address] [place], [address] Urea nitrogen [Mass/Vol] 12 mg/dL Normal 4-19 [facility] Comment on above: Performed By: #### L 501.5200, L100.0100, L500.4050 #### [facility] [address] [place], [address] Emergency Department Summary on 09-23-2024 Emergency Department Summary [facility] Medical Records Department [address] [place] [address] Emergency Department Summary 09/23/24 MR#: [id number] Acct: [id number] Name: MINDY FAULKNER Rep #: [id number] : 1980 44 From: Jose Garza DO [...] Does not see a primary care physician. [facility] Medical History Wears dentures Wears glasses Anxiety [...] normal res (more content not included)... Normal [facility] Eosinophil percentageOrdered By: Jose Garza on 09-23-2024 Eosinophils/100 WBC (Bld) 2.9 % 0-5 [facility] Epithelial cells.squamous LM Ql (Urine sed)Ordered By: Jose Garza on 09-23-2024 Epithelial cells.squamous LM.HPF (Urine sed) [#/Area] 0 /[HPF] 5-10 [facility] Erythrocyte distribution wid th ratioOrdered By: Jose Garza on 09-23-2024 Erythrocyte distribution width (RBC) [Ratio] 12.0 % 11.6-14.6 [facility] Erythrocyte distribution wid th standard deviationOrdered By: Jose Garza on 09-23-2024 Erythrocyte distribution width (RBC) [Entitic vol] 37.6 fL 35.1-43.9 [facility] Estimation of creatinine nara aranceOrdered By: Jose Garza on 09-23-2024 Estimated Creatinine Clearance Calc 70.64 ml/min 50-250 [facility] GFR/1.73 sq M.predicted maira g non-blacks MDRD (S/P/Bld) [Vol rate/Area]Ordered By: Jose Garza on 09-23-2024 Estimated GFR (MDRD) Non-Af Amer 75 >60 [facility] Comment on above: mL/min/1.73m2 CKD-EP I Creatinine Equation (2020) Glucose Ql (U)Ordered By: Yadira Garza on 09-23-2024 Glucose (U) [Mass/Vol] 1000 mg/dL High Normal [facility] Hematocrit Auto (Bld) [Volum e fraction]Ordered By: Jose Garza on 09-23-2024 Hematocrit (Bld) [Volume fraction] 38.8 % 37-47 [facility] Hemoglobin measurementOrdere d By: Jose Garza on 09-23-2024 Hemoglobin (Bld) [Mass/Vol] 13.5 g/dL 12.0-15.0 [facility] Immature granulocytes/100 WB C Auto (Bld)Ordered By: Jose Garza on 09-23-2024 Immature granulocytes/100 WBC (Bld) 0.300 % 0.0-0.9 [facility] Comment on above: IG% - Immature Granu locytes (promyelocytes, myelocytes and metamyelocytes) > 1% indicates that a LEFT SHIFT is Present. Ketones Test strip Ql (U)Ord ered By: Jose Garza on 09-23-2024 Ketones Ql (U) 5 mg/dl High Negative [facility] - Chemistry and C hemistry - challengeOrdered By: Jose Garza on 09-23-2024 AST [Catalytic activity/Vol] 21 U/L <32 [facility] Comment on above: Hemolysis present, R esults could be affected. Lymphocytes Auto (Unsp spec) [#/Vol]Ordered By: Jose Garza on 09-23-2024 Lymphocytes (Bld) [#/Vol] 2.36 10*3/uL 0.83-4.51 [facility] Lymphocytes/100 WBC Auto (Un sp spec)Ordered By: Jose Garza on 09-23-2024 Lymphocytes/100 WBC (Bld) 35.8 % 19-41 [facility] MCV (mean corpuscular volume ) determinationOrdered By: oJse Garza on 09-23-2024 MCV (RBC) [Entitic vol] 85.7 fL 81-99 [facility] Magnesiumon 09-23-2024 Magnesium [Mass/Vol] 1.8 mg/dL Normal 1.5-2.2 [facility] Comment on above: Performed By: #### L 501.5200, L100.0100, L500.4050 #### [facility] [address] [place], [place], [id number] Magnesium (Unsp spec) [Mass/ Vol]Ordered By: Jose Garza on 09-23-2024 Magnesium [Mass/Vol] 1.8 mg/dL 1.5-2.2 [facility] Mean corpuscular hemoglobin (MCH) determinationOrdered By: Jose Garza on 09-23-2024 MCH (RBC) [Entitic mass] 29.8 pg 27.0-32.0 [facility] Mean corpuscular hemoglobin concentration (MCHC) determinationOrdered By: Jose Garza on 09-23-2024 MCHC (RBC) [Mass/Vol] 34.8 g/dL 32-36 [facility] Mean platelet volume determi nationOrdered By: Jose Garza on 09-23-2024 Platelet mean volume (Bld) [Entitic vol] 11.0 fL 6.2-12.0 [facility] Microscopic analysis of urin e for red blood cells (RBC)Ordered By: Jose Garza on 09-23-2024 Urine RBC 5-10 SEEN /hpf 0-5 [facility] Monocyte percentageOrdered B y: Jose Garza on 09-23-2024 Monocytes/100 WBC (Bld) 6.8 % 0-10 [facility] Mucus LM Ql (Urine sed)Order ed By: Jose Garza on 09-23-2024 Mucus Ql (Urine sed) RARE /hpf [facility] Neutrophil percentageOrdered By: Jose Garza on 09-23-2024 Neutrophils/100 WBC (Bld) 53.1 % 47-70 [facility] Nitrite Test strip Ql (U)Ord ered By: Jose Garza on 09-23-2024 Nitrite Ql (U) Negative Negative [facility] Nucleated red blood cell per centageOrdered By: Jose Garza on 09-23-2024 Nucleated RBC/100 WBC (Bld) [Ratio] 0 % 0-5 [facility] Platelet countOrdered By: Yadira Garza on 09-23-2024 Platelets (Bld) [#/Vol] 285 10*3/uL 150-450 [facility] Potassium (Unsp spec) [Mass/ Vol]Ordered By: Emelia Kayla on 09-23-2024 Potassium [Moles/Vol] 3.6 mmol/L 3.3-5.1 [facility] Comment on above: Hemolysis present, R esults could be affected. Protein Test strip Ql (U)Ord ered By: Emelia Kayla on 09-23-2024 Protein Ql (U) 500 mg/dl High Negative [facility] RBC Auto (Bld) [#/Vol]Ordere d By: Emeliaus Freemanantionette on 09-23-2024 RBC (Bld) [#/Vol] 4.53 10*6/uL 4.2-5.4 [facility] Serum creatinine measurement (mass/volume)Ordered By: Jose Garza on 09-23-2024 Creatinine [Mass/Vol] 0.95 mg/dL 0.70-1.20 [facility] Serum globulin measurementOr dered By: Emeliaus Garza on 09-23-2024 Globulin (S) [Mass/Vol] 3.3 g/dL 2.2-4.2 [facility] Serum glucose measurement (m ass/volume)Ordered By: Jose Garza on 09-23-2024 Glucose [Mass/Vol] 415 mg/dL High 70-99 [facility] Serum or plasma alanine dunbar otransferase (ALT) measurementOrdered By: Jose Garza on 09-23-2024 ALT [Catalytic activity/Vol] 15 U/L <35 [facility] Serum or plasma albumin richard urement (mass/volume)Ordered By: Jose Garza on 09-23-2024 Albumin [Mass/Vol] 2.2 g/dL Low 3.5-5.0 [facility] Serum or plasma albumin/glob ulin mass ratioOrdered By: Jose Garza on 09-23-2024 Albumin/Globulin [Mass ratio] 0.7 {ratio} Low 0.9-2.4 [facility] Serum or plasma alkaline fili sphatase measurementOrdered By: Jose Garza on 09-23-2024 ALP [Catalytic activity/Vol] 73 U/L 35-104 [facility] Serum or plasma calcium richard urement (mass/volume)Ordered By: Remus Ungur on 09-23-2024 Calcium [Mass/Vol] 8.1 mg/dL 7.6-11.0 [facility] Serum or plasma urea nitroge n measurement (mass/volume)Ordered By: Remus Ungur on 09-23-2024 Urea nitrogen [Mass/Vol] 12 mg/dL 4-19 [facility] Sodium levelOrdered By: Remu s Ungur on 09-23-2024 Sodium [Moles/Vol] 132 mmol/L Low 133-145 [facility] Total proteinOrdered By: Rem us Ungur on 09-23-2024 Protein [Mass/Vol] 5.6 g/dL Low 5.9-8.4 [facility] Urinalysis, Completeon 09-23 BACTERIA 3+ /hpf Normal None Seen [facility] Comment on above: Order Comment: CLEAN CATCH Performed By: #### L 400.0001 #### [facility] [address] [place], [address] Mucus Ql (Urine sed) RARE Normal [facility] Comment on above: Order Comment: CLEAN CATCH Performed By: #### L 400.0001 #### [facility] [address] [place], [address] RBC 5-10 SEEN Normal 0-5 [facility] Comment on above: Order Comment: CLEAN CATCH Performed By: #### L 400.0001 #### [facility] [address] [place], [address] WBC 50-100 SEEN Normal 0-5 [facility] Comment on above: Order Comment: CLEAN CATCH Performed By: #### L 400.0001 #### [facility] [address] [place], [address] EPI,SQUAMOUS 0 SEEN Normal 5-10 [facility] Comment on above: Order Comment: CLEAN CATCH Performed By: #### L 400.0001 #### [facility] [address] [place], [address] Urine blood detectionOrdered By: Remus Kayla on 09-23-2024 Urine Occult Blood 50 /ul High Negative [facility] Urine clarityOrdered By: Rem us Kayla on 09-23-2024 Clarity (U) Cloudy Clear [facility] Urine color determinationOrd ered By: Remus Garza on 09-23-2024 Color (U) Straw Yellow [facility] Urine leukocyte esterase det ection by dipstickOrdered By: Remus Garza on 09-23-2024 Leukocyte esterase Test strip Ql (U) 100 /ul High Negative [facility] Urine pHOrdered By: Jose Un gur on 09-23-2024 pH (U) 6.5 [pH] 5.0 - 8.0 [facility] Urine sediment bacteria coun t by microscopy (number/high power field)Ordered By: Jose Garza on 09-23-2024 Bacteria LM.HPF (Urine sed) [#/Area] 3 /[HPF] None Seen [facility] Urine specific gravity measu rementOrdered By: Remus Garza on 09-23-2024 Specific gravity (U) [Rel density] 1.015 1.002-1.030 [facility] Urobilinogen Ql (U)Ordered B y: Jose Garza on 09-23-2024 Urine Urobilinogen Normal mg/dl Normal [facility] Venous Duplex US - Yoshi Extre mon 09-23-2024 Venous Duplex US - Yoshi Extrem [facility] [address] [place] [address] Venous Duplex US - Yoshi Extrem 09/23/24 1415 MR#: [id number] Acct: [id number] Name: MINDY FAULKNER Rep #: [id number] : 1980 44 From: Horace Perez MD [...] Date Dictated: 09/23/24 1415 Date Transcribed: 09/23/241957 Director Of Student Affairs: Signed Normal [facility] White blood cell (WBC) count Ordered By: Jose Garza on 09-23-2024 WBC (Bld) [#/Vol] 6.6 10*3/uL 4.4-11.0 [facility] White blood cell countOrdere d By: Jose Garza on 09-23-2024 Urine WBC 50-100 SEEN /hpf 0-5 [facility] ([id number]) 1980 F Date Time Provider Department 07/08/24 [facility] During your visit today, we recorded the [...] glargine LANTUS 100 UNIT/ML SOLN INSULIN GLARGINE [id number] Pierce Pemberton MD 08-26-2013 [facility] ([id number]) - L. acidophilus-L. rhamnosus 15 billion cell [...] Cyst with Abscess [L05.01] 03/15/2010 NO SHOW [[id number]] 05/01/2013 07/06/2014 Brachial plexus neuropathy [G54.0] 06/04/2013 Neuropathic pain [M79.2] 06/04/2013 Type 2 diabetes mellitus with 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 *10/23/2013 Hidradenitis suppurativa [L73.2] 10/26/2013 HPV test positive [VQZ2850] 07/16/2014 Tobacco use disorder [F17.200] 12/14/2016 History of substance abuse [F19.11] 07/23/2018 Pain in joint of left shoulder region [M25.512] 09/05/2018 Abnormal mammogram [R92.8] 10/14/2019 Encounter Status:Closed by MALI MERCADO on 07/08/24 [facility]27[facility] MINDY FAULKNER ([id number]) 1980 F Date Time Provider Department 05/27/24 ANASTASIIA JOAQUIN [facility] During your visit today, we recorded [...] is also interested in speaking with our forensic social worker so I also let her know I would place a consult for [facility] SW. Provided number for suicide/crisis hotline [phone]. [...] Visit Diagnosis:Mood disorder (HCC) [F39] Order(s):CONSULT TO WIRE INSPECTOR ([facility] ONLY) [[id number]] Order #: [id number]: 1 Prescriptions as of 05/27/2024 - ibuprofen [...] glargine LANTUS 100 UNIT/ML SOLN INSULIN GLARGINE [id number] Pierce Pemberton MD 08-26-2013 [facility] ([id number]) - L. acidophilus-L. rhamnosus 15 billion cell [...] Cyst with Abscess [L05.01] 03/15/2010 NO SHOW [[id number]] 05/01/2013 07/06/2014 Brachial plexus neuropathy [G54.0] 06/04/2013 Neuropathic pain [M79.2] 06/04/2013 Type 2 diabetes mellitus with 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 *10/23/2013 Hidradenitis suppurativa [L73.2] 10/26/2013 HPV test positive [[id number]] 07/16/2014 Tobacco use disorder [F17.200] 12/14/2016 History of substance abuse [F19.11] 07/23/2018 Pain in joint of left shoulder region [M25.512] 09/05/2018 Abnormal mammogram [R92.8] 10/14/2019 Encounter Status:Closed by ANASTASIIA JOAQUIN on 05/27/24 [facility] CNOVon 05-23-2024 CNOV Office Visit ([facility]) MINDY FAULKNER ([id number]) 1980 F Date Time Provider Department 05/23/24 10:20 AM ANASTASIIA JOAQUIN [facility] During your visit today, we recorded the following information about you: Temperature Pulse Respiration Blood pressure 98 degrees 99/minute 18/minute 170/98 Weight Last Period 63.3 kg 04/18/24 Anastasiia Joaquin MD 05/23/2024 7:33 PM Signed Anastasiia Joaquin MD [facility] [address] [place] [address] [employer] [facility] / [address] [place] [address] Visit Date: May 23, 2024 Name: Mindy Faulkner Date of : 1980 MRN/E #: [id number] Chief Complaint: Patient presents with: Establish Care: RT side arm, breast, and leg w/o injury x 1 month Patient has hidradenitis thinks pain is associated with disorder Subjective Mindy Faulkner is a 43 year old female here for a new patient visit to establish care and also for mood concerns Previously received care at [facility] 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 Hidradenitis [...] she would never harm herself -formerly saw [facility] - Dr. Corey, on medicine that altered [...] glargine LANTUS 100 UNIT/ML JONNY INSULIN GLARGINE [phone] Pierce Pemberton MD 08-26-2013 [facility] ([id number]) (Patient not taking: Reported on 05/23/2024) L. [...] gauge mi (more content not included)... Normal [facility] Absolute lymphocyte countOrd ered By: Dr. Hastings on 12-21-2022 Lymphocytes Auto (Unsp spec) [#/Vol] 2.55 10*3/uL 0.83-4.51 [facility] Basophil percentageOrdered B y: Dr. Hastings on 12-21-2022 Basophils/100 WBC (Bld) 1.1 % 0-1 [facility] Bilirubin [Mass/Vol] 0.20 mg/dL 0.20-1.00 [facility] Comment on above: For patients on eltr ombopag therapy, use of Dimension [place] TBIL is not recommended. Chloride [Moles/Vol] 106 mmol/L 98-107 [facility] Eosinophils/100 WBC (Bld) 2.3 % 0-5 [facility] Glucose [Mass/Vol] 291 mg/dL 74-106 [facility] Comment on above: Glucose result great er than or equal to 200 mg/dLsuggests DIABETES MELLITUS per A.D.A. criteria. Neutrophils (Bld) [#/Vol] 2.1 10*3/uL 2.0-7.7 [facility] Neutrophils/100 WBC (Bld) 39.7 % 47-70 [facility] Potassium [Moles/Vol] 4.0 mmol/L 3.5-5.1 [facility] Protein [Mass/Vol] 6.8 g/dL 6.4-8.2 [facility] Sodium [Moles/Vol] 138 mmol/L 136-145 [facility] WBC (Bld) [#/Vol] 5.3 10*3/uL 4.4-11.0 [facility] Blood erythrocytes count (nu mber/volume)Ordered By: Dr. Hastings on 12-21-2022 RBC (Bld) [#/Vol] 4.35 10*6/uL 4.2-5.4 [facility] Blood hemoglobin measurement (mass/volume)Ordered By: Dr. Hastings on 12-21-2022 Hemoglobin (Bld) [Mass/Vol] 12.8 g/dL 12.0-15.0 [facility] Blood lymphocytes/100 leukoc ytesOrdered By: Dr. Hastings on 12-21-2022 Lymphocytes/100 WBC (Bld) 48.4 % 19-41 [facility] Blood monocytes/100 leukocyt esOrdered By: Dr. Hastings on 12-21-2022 Monocytes/100 WBC (Bld) 8.3 % 0-10 [facility] Blood platelet mean volumeOr dered By: Dr. Hastings on 12-21-2022 Platelet mean volume (Bld) [Entitic vol] 10.9 fL 6.2-12.0 [facility] Determination of erythrocyte mean corpuscular volume (MCV)Ordered By: Dr. Hastings on 12-21-2022 MCV (RBC) [Entitic vol] 86.9 fL 81-99 [facility] Erythrocyte sedimentation ra teOrdered By: Dr. Hastings on 12-21-2022 ESR (Bld) [Velocity] 12 mm/h 0-30 [facility] Hematocrit Auto (Bld) [Volum e fraction]Ordered By: Dr. Hastings on 12-21-2022 Hematocrit (Bld) [Volume fraction] 37.8 % 37-47 [facility] Laboratory - Chemistry and C hemistry - challengeOrdered By: Dr. Hastings on 12-21-2022 ALP [Catalytic activity/Vol] 79 U/L 45-117 [facility] ALT [Catalytic activity/Vol] 19 U/L 13-56 [facility] CK [Catalytic activity/Vol] 80 U/L 26-192 [facility] CO2 [Moles/Vol] 28.0 mmol/L 21.0-32.0 [facility] Globulin (S) [Mass/Vol] 3.8 g/dL 2.2-4.2 [facility] Urea nitrogen/Creatinine [Mass ratio] 17.2 mg/mg 10-20 [facility] Laboratory - Hematology and Cell countsOrdered By: Dr. Hastings on 12-21-2022 Erythrocyte distribution width (RBC) [Entitic vol] 39.6 fL 35.1-43.9 [facility] Erythrocyte distribution width (RBC) [Ratio] 12.4 % 11.6-14.6 [facility] Immature granulocytes/100 WBC (Bld) 0.200 % 0.0-0.9 [facility] Comment on above: IG% - Immature Granu locytes (promyelocytes, myelocytes and metamyelocytes) > 1% indicates that a LEFT SHIFT is Present. MCH (RBC) [Entitic mass] 29.4 pg 27.0-32.0 [facility] Nucleated RBC/100 WBC (Bld) [Ratio] 0 % 0-5 [facility] MCHC Auto (RBC) [Mass/Vol]Or dered By: Dr. Hastings on 12-21-2022 MCHC (RBC) [Mass/Vol] 33.9 g/dL 32-36 [facility] No Panel InformationOrdered By: Dr. Hastings on 12-21-2022 Estimated Creatinine Clearance Calc 64.52 ml/min [facility] Estimated GFR (MDRD) Amer 84 mL/min >60 [facility] Comment on above: GFR Calc Estimated GFR (MDRD) Non-Af Amer 70 mL/min >60 [facility] Comment on above: Non- GFR Calc Platelets bldOrdered By: Dr. Hastings on 12-21-2022 Platelets (Bld) [#/Vol] 244 10*3/uL 150-450 [facility] Serum or plasma albumin richard urement (mass/volume)Ordered By: Dr. Hastings on 12-21-2022 Albumin [Mass/Vol] 3.0 g/dL 3.2-5.0 [facility] Serum or plasma albumin/glob ulin mass ratioOrdered By: Dr. Hastings on 12-21-2022 Albumin/Globulin [Mass ratio] 0.8 {ratio} 0.9-2.4 [facility] Serum or plasma calcium richard urement (mass/volume)Ordered By: Dr. Hastings on 12-21-2022 Calcium [Mass/Vol] 8.8 mg/dL 8.5-10.1 [facility] Serum or plasma creatinine m easurement (mass/volume)Ordered By: Dr. Hastings on 12-21-2022 Creatinine [Mass/Vol] 0.93 mg/dL 0.55-1.02 [facility] Comment on above: The validity of the calculated GFR & GFRAA in patients over 70 years has not been determined. Clinical correlation is essential. Serum or plasma urea nitroge n measurement (mass/volume)Ordered By: Dr. Hsatings on 12-21-2022 Urea nitrogen [Mass/Vol] 16 mg/dL 7-18 [facility] Thin prep Papanicolaou smear with manual screeningOrdered By: Dr. Hastings on 12-21-2022 Thin prep Papanicolaou smear with manual screening 12 U/L 15-37 [facility] Thin prep Papanicolaou smear with manual screening 4 5-15 [facility] Basophil percentageon 2021 Basophil percentage 0-5 SEEN /hpf 0-5 [facility] Work Phone: Bilirubin Test strip Ql (U)o n 06-26-2022 Bilirubin Ql (U) Negative Negative [facility] Work Phone: Ketones Test strip Ql (U)on 06-26-2022 Ketones Ql (U) 5 mg/dl Negative [facility] Work Phone: Mucus LM Ql (Urine sed)on Mucus Ql (Urine sed) 0 SEEN /hpf [facility] Work Phone: Nitrite Test strip Ql (U)on 06-26-2022 Nitrite Ql (U) Negative Negative [facility] Work Phone: Protein Test strip Ql (U)on 06-26-2022 Protein Ql (U) 100 mg/dl Negative [facility] Work Phone: Squamous epithelial cells de tection in urine sediment by light microscopyon 06-26-2022 Epithelial cells.squamous LM Ql (Urine sed) 0 SEEN /hpf 5-10 [facility] Work Phone: Urine blood detectionon 06-02 RBC Ql (U) 150 /ul Negative [facility] Work Phone: RBC Ql (U) 0-5 SEEN /hpf 0-5 [facility] Work Phone: Urine clarityon 06-26-2022 Clarity (U) Sl. Cloudy Clear [facility] Work Phone: Urine color determinationon 06-26-2022 Color (U) Straw Yellow [facility] Work Phone: Urine glucose detectionon Glucose Ql (U) 1000 mg/dl Normal [facility] Work Phone: Urine leukocyte esterase det ection by dipstickon 06-26-2022 Leukocyte esterase Test strip Ql (U) 25 /ul Negative [facility] Work Phone: Urine pHon 06-26-2022 pH (U) 5.0 [pH] 5.0 - 8.0 [facility] Work Phone: Urine sediment bacteria coun t by microscopy (number/high power field)on 06-26-2022 Bacteria LM.HPF (Urine sed) [#/Area] 4 /[HPF] None Seen [facility] Work Phone: Urine specific gravity measu rementon 06-26-2022 Specific gravity (U) [Rel density] 1.020 1.002-1.030 [facility] Work Phone: Urobilinogen Auto test strip Ql (U)on 06-26-2022 Urobilinogen Ql (U) Normal mg/dl Normal [facility] Work Phone: PROGRESSon 08-01-2018 Protein mass conc HNO ID: [id number] Author: Aury (Ct) CARRINGTON Arellano Service: (none) Author Type: Clinical Preparation Plant Supervisor Type: Progress Notes Filed: 08/01/2018 9:36 AM Note Text: NAME:Mindy Faulkner DATE: August 01, 2018 CCF#: [id number] Upper Extremity X-Ray(s): Shoulder, AP / TRUE AP / AXILLARY / SUPRA OUTLET left COMPLETED TECH ID SIGN: AURY ARELLANO [facility] XR SHLDR >/=3V AP/WISAM AP/OTH R [...] and soft tissues are unremarkable. IMPRESSION: Negative Director Of Student Affairs: [employer] Transcribe Date/Time: Aug 01 2018 10:06A Dictated by : PIERCE OLIVEROS MD This examination was interpreted and the report reviewed and electronically signed by: PIERCE OLIVEROS MD on Aug 01 2018 10:06AM EST [id number] [facility] Microbiology: Culture, Deep Woundon 03-26-2017 CUDW . Invalid Interpretation Code [facility] Work Phone: GE use only - for LinkLogic import when terms are not otherwise specified . Invalid Interpretation Code [facility] Work Phone: [phone] Microbiology: (P) Culture, D eep Woundon 03-25-2017 GE use only - for LinkLogic import when terms are not otherwise specified Vancomycin $ 1 S Invalid Interpretation Code [facility] Work Phone: [phone] Lab Report: Basic Metabolic Profile (BMP)on 03-24-2017 Anion gap 8 mmol/L Invalid Interpretation Code 5-15 [facility] Work Phone: [phone] BUN/Creatinine Ratio 21.1 RATIO High 10-[address] [facility] Work Phone: [phone] Calcium 8.4 mg/dL Low 8.5-10.1 [facility] Work Phone: [phone] Chloride 103 mmol/L Invalid Interpretation Code 98-107 [facility] Work Phone: [phone] CO2 24.0 mmol/L Invalid Interpretation Code 21.0-32.0 [facility] Work Phone: [phone] Creatinine 96.54 mL/min Invalid Interpretation Code [facility] Work Phone: [phone] Creatinine 0.66 mg/dL Invalid Interpretation Code 0.55-1.02 [facility] Work Phone: [phone] eGFR (non-black) 128 mL/min/{1.73_m2} Invalid Interpretation Code >60 [facility] Work Phone: [phone] eGFR (non-black) 106 mL/min/{1.73_m2} Invalid Interpretation Code >60 [facility] Work Phone: [phone] Glucose 282 mg/dL High 70-110 [facility] Work Phone: [phone] Potassium 4.0 mmol/L Invalid Interpretation Code 3.5-5.1 [facility] Work Phone: [phone] Sodium 135 mmol/L Low 136-145 [facility] Work Phone: [phone] Urea nitrogen 14 mg/dL Invalid Interpretation Code 7-18 [facility] Work Phone: [phone] Lab Report: Bedside Glucoseo n 03-24-2017 Glucose 288 mg/dL High 70-110 [facility] Work Phone: [phone] Lab Report: CBC-Complete Blo od Cnt No Diffon 03-24-2017 Erythrocytes (RBC) 4.31 10*6/uL Invalid Interpretation Code 4.2-5.4 [facility] Work Phone: [phone] Hematocrit (HCT) 38.2 % Invalid Interpretation Code 37-47 [facility] Work Phone: [phone] Hemoglobin (HGB) 12.9 g/dL Invalid Interpretation Code 12.0-15.0 [facility] Work Phone: [phone] MCH 29.9 pg Invalid Interpretation Code 27.0-32.0 [facility] Work Phone: [phone] MCHC 33.8 G/GL Invalid Interpretation Code 32-36 [facility] Work Phone: [phone] MCV 88.6 fL Invalid Interpretation Code 81-99 [facility] Work Phone: [phone] Platelets 190 10*3/mm3 Invalid Interpretation Code 150-450 [facility] Work Phone: [phone] PMV by Devang 11.9 fL Invalid Interpretation Code 6.2-12.0 [facility] Work Phone: [phone] RDW-CA 12.2 % Invalid Interpretation Code 11.6-14.6 [facility] Work Phone: [phone] red blood cell distribution width, size density 38.8 fL Invalid Interpretation Code 35.1-43.9 [facility] Work Phone: [phone] WBC (Leukocytes) 7.8 10*3/uL Invalid Interpretation Code 4.4-11.0 [facility] Work Phone: [phone] Microbiology: Fungus Stainon 03-24-2017 fungus stain . Invalid Interpretation Code [facility] Work Phone: [phone] Replaced Document: Basic Met abolic Profile (BMP)on 03-24-2017 Anion gap 4 molar conc 8 Invalid Interpretation Code 5-15 [facility] Work Phone: [phone] CO2 ppres (BldV) 24.0 mmol/L Invalid Interpretation Code 21.0-32.0 [facility] Work Phone: [phone] EST GFR - AA 128 mL/min Invalid Interpretation Code >60 [facility] Work Phone: [phone] Glucose mass conc 282 mg/dL High 70-110 [facility] Work Phone: [phone] Replaced Document: Bedside G scarletoseon 03-24-2017 Glucose mass conc 288 mg/dL High 70-110 [facility] Work Phone: [phone] Replaced Document: CBC-Compl ete Blood Cnt No Diffon 03-24-2017 Erythrocyte distribution width Auto Ratio (RBC) 38.8 fL Invalid Interpretation Code 35.1-43.9 [facility] Work Phone: [phone] Replaced Document: Fungus St meliza 03-24-2017 FUNST . Invalid Interpretation Code [facility] Work Phone: [phone] Lab Report: Basic Metabolic Profile (BMP)on 03-23-2017 Anion gap 9 mmol/L Invalid Interpretation Code 5-15 [facility] Work Phone: [phone] BUN/Creatinine Ratio 19.6 RATIO Invalid Interpretation Code 10-20 [facility] Work Phone: [phone] Calcium 8.3 mg/dL Low 8.5-10.1 [facility] Work Phone: [phone] Chloride 101 mmol/L Invalid Interpretation Code 98-107 [facility] Work Phone: [phone] CO2 24.0 mmol/L Invalid Interpretation Code 21.0-32.0 [facility] Work Phone: [phone] Creatinine 82.75 mL/min Invalid Interpretation Code [facility] Work Phone: [phone] Creatinine 0.77 mg/dL Invalid Interpretation Code 0.55-1.02 [facility] Work Phone: [phone] eGFR (non-black) 90 mL/min/{1.73_m2} Invalid Interpretation Code >60 [facility] Work Phone: [phone] eGFR (non-black) 109 mL/min/{1.73_m2} Invalid Interpretation Code >60 [facility] Work Phone: [phone] Glucose 307 mg/dL High 70-110 [facility] Work Phone: [phone] Potassium 3.8 mmol/L Invalid Interpretation Code 3.5-5.1 [facility] Work Phone: [phone] Sodium 134 mmol/L Low 136-145 [facility] Work Phone: [phone] Urea nitrogen 15 mg/dL Invalid Interpretation Code 7-18 [facility] Work Phone: [phone] Lab Report: Bedside Glucoseo n 03-23-2017 Glucose 316 mg/dL High 70-110 [facility] Work Phone: [phone] Lab Report: CRPon 03-23-2017 C reactive protein (CRP) 0.636 mg/dL High Uni ts converted. See lab report for original value. [facility] Work Phone: [phone] Lab Report: Erythrocyte Sed Rateon 03-23-2017 Erythrocyte sedimentation rate 33 mm/h High 0-20 [facility] Work Phone: [phone] Lab Report: Hemoglobin A1con 03-23-2017 HbA1c 11.1 % High 4.2-6.3 [facility] Work Phone: [phone] Lab Report: Prealbuminon Prealbumin 22.3 mg/dL Invalid Interpretation Code 20.0-40.0 [facility] Work Phone: [phone] Microbiology: (P) Culture, D eep Woundon 03-23-2017 GE use only - for LinkLogic import when terms are not otherwise specified . Invalid Interpretation Code [facility] Work Phone: [phone] Replaced Document: (P) CBC-C omplete Blood Cnt No Diffon 03-23-2017 Erythrocytes (RBC) 4.55 10*6/uL Invalid Interpretation Code 4.2-5.4 [facility] Work Phone: [phone] Hematocrit (HCT) 40.1 % Invalid Interpretation Code 37-47 [facility] Work Phone: [phone] Hemoglobin (HGB) 13.6 g/dL Invalid Interpretation Code 12.0-15.0 [facility] Work Phone: [phone] MCH 29.9 pg Invalid Interpretation Code 27.0-32.0 [facility] Work Phone: [phone] MCHC 33.9 G/GL Invalid Interpretation Code 32-36 [facility] Work Phone: [phone] MCV 88.1 fL Invalid Interpretation Code 81-99 [facility] Work Phone: [phone] Platelets 215 10*3/mm3 Invalid Interpretation Code 150-450 [facility] Work Phone: [phone] PMV by Devang 11.5 fL Invalid Interpretation Code 6.2-12.0 [facility] Work Phone: [phone] RDW-CA 12.4 % Invalid Interpretation Code 11.6-14.6 [facility] Work Phone: [phone] red blood cell distribution width, size density 39.7 fL Invalid Interpretation Code 35.1-43.9 [facility] Work Phone: [phone] WBC (Leukocytes) 13.3 10*3/uL High 4.4-11.0 [facility] Work Phone: [phone] Replaced Document: Prealbumi non 03-23-2017 Prealbumin Elph mass conc 22.3 mg/dL Invalid Interpretation Code 20.0-40.0 [facility] Work Phone: [phone] Lab Report: ,Urineo n 03-22-2017 Urine, test (choriogonadotropin presence) . Invalid Interpretation Code [facility] Work Phone: [phone] Replaced Document: ,Urineon 03-22-2017 HCG.beta subunit ( test) Ql (U) . Invalid Interpretation Code [facility] Work Phone: [phone] Office Visit: evaluation hid radenitison 03-07-2017 Fall risk assessment No Invalid Interpretation Code [facility] Work Phone: [phone] Tobacco smoking status NHIS Current every day smoker Invalid Interpretation Code [facility] Work Phone: [phone] Tobacco smoking status NHIS Never Invalid Interpretation Code [facility] Work Phone: [phone] Office Visit: evaluation hid radenitison 07-12-2015 Dietary management education, guidance, and counseling (procedure) yes Invalid Interpretation Code [facility] Work Phone: [phone] Documentation of current medications (procedure) Done Invalid Interpretation Code [facility] Work Phone: [phone] Smoking cessation education (procedure) yes Invalid Interpretation Code [facility] Work Phone: [phone] Tobacco smoking status NHIS Never Invalid Interpretation Code [facility] Work Phone: [phone] Tobacco smoking status NHIS Current every day smoker Invalid Interpretation Code [facility] Work Phone: [phone] Tobacco use [facility] Current every day smoker Invalid Interpretation Code [facility] Work Phone: [phone] Microbiology: Culture, Deep Woundon 01-20-2015 GE use only - for LinkLogic import when terms are not otherwise specified Cult, AnaerobicNo anaerobic bacteria isolated. Invalid Interpretation Code [facility] Work Phone: [phone] Lab Report: Basic Metabolic Profile (BMP)on 10-21-2014 Anion gap 8 mmol/L Invalid Interpretation Code 5-15 [facility] Work Phone: [phone] BUN/Creatinine Ratio 12.9 RATIO Invalid Interpretation Code 10-20 [facility] Work Phone: [phone] Calcium 7.7 mg/dL Low 8.5-10.1 [facility] Work Phone: [phone] Chloride 107 mmol/L Invalid Interpretation Code 98-107 [facility] Work Phone: [phone] CO2 24.0 mmol/L Invalid Interpretation Code 21.0-32.0 [facility] Work Phone: [phone] Creatinine 0.7 mg/dL Invalid Interpretation Code 0.6-1.0 [facility] Work Phone: [phone] eGFR (non-black) 101 mL/min/{1.73_m2} Invalid Interpretation Code >60 [facility] Work Phone: [phone] eGFR (non-black) 122 mL/min/{1.73_m2} Invalid Interpretation Code >60 [facility] Work Phone: [phone] Glucose 131 mg/dL High 70-110 [facility] Work Phone: [phone] Potassium 3.5 mmol/L Invalid Interpretation Code 3.5-5.1 [facility] Work Phone: [phone] Sodium 139 mmol/L Invalid Interpretation Code 136-145 [facility] Work Phone: [phone] Urea nitrogen 9 mg/dL Invalid Interpretation Code 7-18 [facility] Work Phone: [phone] Lab Report: CBC-Complete Blo od Cnt No Diffon 10-21-2014 Erythrocytes (RBC) 4.32 10*6/uL Invalid Interpretation Code 4.2-5.4 [facility] Work Phone: [phone] Hematocrit (HCT) 38.5 % Invalid Interpretation Code 37-47 [facility] Work Phone: [phone] Hemoglobin (HGB) 13.0 g/dL Invalid Interpretation Code 12.0-15.0 [facility] Work Phone: [phone] MCH 30.1 pg Invalid Interpretation Code 27.0-32.0 [facility] Work Phone: [phone] MCHC 33.8 G/GL Invalid Interpretation Code 32-36 [facility] Work Phone: [phone] MCV 89.1 fL Invalid Interpretation Code 81-99 [facility] Work Phone: [phone] Platelets 191 10*3/mm3 Invalid Interpretation Code 150-450 [facility] Work Phone: [phone] PMV by Devang 10.7 fL Invalid Interpretation Code 6.2-12.0 [facility] Work Phone: [phone] red blood cell distribution width, size density 42.2 fL Invalid Interpretation Code 35.1-43.9 [facility] Work Phone: [phone] WBC (Leukocytes) 6.1 10*3/uL Invalid Interpretation Code 4.4-11.0 [facility] Work Phone: [phone] Lab Report: Prealbuminon Prealbumin 19.9 mg/dL Low 20.0-40.0 [facility] Work Phone: [phone] Lab Report: Hemoglobin A1con 07-21-2014 HbA1c 10.9 % Critically high 4.2-6.3 [facility] Work Phone: [phone] Microbiology: STEVIEORSLBon 04- fungus culture isolated from skin, hair, nails NO YEAST OR MOLD ISOLATED AFTER 4 WEEKS. Normal [facility] Work Phone: [phone] fungus stain FUNGUS STAIN No yeast or mold observed. Normal [facility] Work Phone: [phone] Lab Report: PTTon 04-25-2011 aPTT 30.9 s Normal 24.1-36.2 [facility] Work Phone: [phone] Vital Signs Date Time Vital Sign Value Performing Clinician Facility 09-23-2024 15:40-0400 Body temperature 96.5 [degF] No Primary Care Physician [facility] 09-23-2024 15:40-0400 Diastolic blood pressure 106 mm[Hg] No Primary Care Physician [facility] 09-23-2024 15:40-0400 Heart rate 105 /min No Primary Care Physician [facility] 09-23-2024 15:40-0400 Respiratory rate 16 /min No Primary Care Physician [facility] 09-23-2024 15:40-0400 SaO2% (BldA) [Mass fraction] 100 % No Primary Care Physician [facility] 09-23-2024 15:40-0400 Systolic blood pressure 175 mm[Hg] No Primary Care Physician [facility] 09-23-2024 13:04-0400 Body height 160.02 cm No Primary Care Physician [facility] 09-23-2024 13:04-0400 Body mass index (BMI) [Ratio] 27.7 kg/m2 No Primary Care Physician [facility] 09-23-2024 13:04-0400 Body weight 71 kg No Primary Care Physician [facility] 05-23-2024 10:49-0500 Body mass index (BMI) [Ratio] 23.96 kg/m2 Anastasiia Joaquin MD Work Phone: [facility] 05-23-2024 10:49-0500 Body temperature 98.01 [degF] Anastasiia Joaquin MD Work Phone: [facility] 05-23-2024 10:49-0500 Body weight 63.32 kg Anastasiia Joaquin MD Work Phone: [facility] 05-23-2024 10:49-0500 Diastolic blood pressure 98 mm[Hg] Anastasiia Joaquin MD Work Phone: [facility] 05-23-2024 10:49-0500 Heart rate 99 /min Anastasiia Joaquin MD Work Phone: [facility] 05-23-2024 10:49-0500 Respiratory rate 18 /min Anastasiia Joaquin MD Work Phone: [facility] 05-23-2024 10:49-0500 SaO2% (BldA) [Mass fraction] 100 % Anastasiia Joaquin MD Work Phone: [facility] 05-23-2024 10:49-0500 Systolic blood pressure 170 mm[Hg] Anastasiia Joaquin MD Work Phone: [facility] 12-21-2022 18:24-0400 Diastolic blood pressure 97 mm[Hg] [facility] 12-21-2022 18:24-0400 Heart rate 124 /min [facility] 12-21-2022 18:24-0400 Respiratory rate 20 /min [facility] 12-21-2022 18:24-0400 SaO2% (BldA) [Mass fraction] 100 % [facility] 12-21-2022 18:24-0400 Systolic blood pressure 154 mm[Hg] [facility] 12-21-2022 17:01-0400 Body mass index (BMI) [Ratio] 26.1 kg/m2 [facility] 12-21-2022 17:01-0400 Body weight 66.8 kg [facility] 12-21-2022 16:37-0400 Body height 160.02 cm [facility] 12-21-2022 16:37-0400 Body temperature 97.9 [degF] [facility] 06-26-2022 11:29-0500 Body height 160.02 cm [facility] Work Phone: 06-26-2022 11:29-0500 Body mass index (BMI) [Ratio] 28.3 kg/m2 [facility] Work Phone: 06-26-2022 11:29-0500 Body temperature 98.2 [degF] [facility] Work Phone: 06-26-2022 11:29-0500 Body weight 72.7 kg [facility] Work Phone: 06-26-2022 11:29-0500 Diastolic blood pressure 98 mm[Hg] [facility] Work Phone: 06-26-2022 11:29-0500 Heart rate 125 /min [facility] Work Phone: 06-26-2022 11:29-0500 Respiratory rate 18 /min [facility] Work Phone: 06-26-2022 11:29-0500 SaO2% (BldA) [Mass fraction] 100 % [facility] Work Phone: 06-26-2022 11:29-0500 Systolic blood pressure 149 mm[Hg] [facility] Work Phone: 03-24-2017 06:39-0400 Body surface area Derived from formula 96.54 mL/min Pierce Pemberton MD [facility] Work Phone: 03-07-2017 11:21-0400 BMI (Body Mass Index) 30.04 kg/m2 Pierce Pemberton MD [facility] Work Phone: 03-07-2017 11:21-0400 Body Temperature 98.6 [degF] Pierce Pemberton MD [facility] Work Phone: 03-07-2017 11:21-0400 BP Diastolic 88 mm[Hg] Pierce Pemberton MD [facility] Work Phone: 03-07-2017 11:21-0400 BP Systolic 138 mm[Hg] Pierce Pemberton MD [facility] Work Phone: 03-07-2017 11:21-0400 BSA (Body Surface Area) 1.87 m2 Pierce Pemberton MD [facility] Work Phone: 03-07-2017 11:21-0400 Height 163.83 cm Pierce Pemberton MD [facility] Work Phone: 03-07-2017 11:21-0400 Respiratory [...] 15:39-0500 BP Diastolic 69 mm[Hg] Porsha Salas [facility] Work Phone: 07-12-2015 15:39-0500 BP Systolic 126 mm[Hg] Porsha Salas [facility] Work Phone: 07-12-2015 15:39-0500 BSA (Body Surface Area) 1.79 m2 Porshaedson Salas [facility] Work Phone: 07-12-2015 15:39-0500 Pulse (Heart Rate) 122 /min Porshaedson Steveer [facility] Work Phone: 07-12-2015 15:39-0500 Respiratory Rate 20 /min Porsha Salas [facility] Work Phone: 07-12-2015 15:39-0500 Weight 72.94 kg Porsha Salas [facility] Work Phone: 07-29-2014 15:07-0500 BP Diastolic 92 mm[Hg] Porshaedson Urbanmeglizabether [facility] Work Phone: 07-29-2014 15:07-0500 BP Systolic 130 mm[Hg] Porshaedson Steveer [facility] Work Phone: 07-14-2014 15:51-0500 BP Diastolic 87 mm[Hg] Porsha Schmegneger [facility] Work Phone: 07-14-2014 15:51-0500 BP Systolic 123 mm[Hg] Porsha Salas [facility] Work Phone: 03-14-2012 15:25-0400 Height 163.83 cm Porsha Salas [facility] Work Phone: Encounters Encounter Date Encounter Type Care Provider Facility Start: 05-05-2025 ambulatory Natalia Dmitri [facility] Start: 05-05-2025 ambulatory Mariam Murry [facility] Start: 05-05-2025 End: 05-05-2025 Evaluation and management of inpatient Mariam [place] Facility:[facility] Start: 09-24-2024 End: 09-24-2024 ambulatory Renetta Murillo ZONING ADMINISTRATOR [facility] Start: 09-24-2024 End: 09-24-2024 Patient encounter procedure Renetta Murillo ZONING ADMINISTRATOR [facility] Comment on above: ED outreach (09/23/24 [facility] ) Start: 09-23-2024 End: 09-23-2024 Emergency department patient visit No Primary Care Physician -Emergency Department Work Phone: Start: 07-08-2024 End: 07-08-2024 [facility] Comment on above: Appointment Start: 06-02-2024 End: 06-02-2024 Patient encounter procedure Cristina VANEGASW Work Phone: [facility] Comment on above: Needs assistance wit h community resources (Primary Dx) Start: 05-27-2024 End: 05-27-2024 Telephone encounter Anastasiia Joaquin MD Work Phone: [facility] Start: 05-23-2024 End: 05-23-2024 ambulatory RIYA Carissa JEAN CLAUDE Facility:[facility] Start: 05-23-2024 End: 05-23-2024 Patient encounter procedure Anastasiia Joaquin MD Work Phone: [facility] Comment on above: Mood disorder (HCC) (Primary Dx); Elevated blood pressure reading without diagnosis of hypertension Start: 12-21-2022 End: 12-21-2022 Emergency department patient visit [facility]Emergency [facility] Start: 07-12-2022 End: 07-12-2022 Nursing evaluation of patient and report Nurse Pnob [facility] Work Phone: OB/Gynecology Comment on above: Missed menses (Prima ry Dx) Start: 06-26-2022 End: 06-26-2022 [facility] Start: 12-28-2021 ambulatory Joey Bradshaw MD Work Phone: Internal Medicine [facility] [place] Start: 10-14-2021 ambulatory Kolby Fisher LPN [facility] [place] Comment on above: PHMA/Care Gap Outrea ch Start: 08-01-2018 End: 08-01-2018 Patient encounter procedure [facility] Procedures Date Procedure Procedure Detail Performing Clinician [...] 64 ONE PNEUMOVAX PRIOR TO AGE 64 [facility] Comment on above: Postponed from 1995 (Postponed - N ot Clinically Indicated) Start: 07-02-2043 PNEUMOCOCCAL (1 - PCV) PNEUMOCOCCAL (1 - PCV) [facility] Comment on above: Postponed from 1985 (Postponed - N ot Clinically Indicated) Start: 07-02-2043 Pneumococcal vaccination Pneumococcal Vaccine (1 of 2 - PCV) [facility] Comment on above: Postponed from 1985 (Postponed - N ot Clinically Indicated) Postponed from 07/07 (Postponed - Not Clinically Indicated) Start: 05-23-2025 Annual PCP Team Chronic Disease Visit Annual PCP Team Chronic Disease Visit [facility] Start: 09-23-2024 [facility] Start: 09-02-2024 End: 09-02-2024 Patient encounter procedure 09/02/2024 10:00 AM EST Office Visit [facility] [address] [place], [place] [id number] Marciano Church DO [address] [place], [place] [id number] New patient [facility] Comment on above: New patient Start: 2024 Screening for malignant neoplasm of colon [facility] Start: 03-02-2024 Covid-19 Vaccine ( season) Covid-19 Vaccine ( season) [facility] Start: 03-02-2024 Influenza vaccination Influ[facility] Vaccine (#[facility] Start: 11-24-2023 Glaucoma screening Dilated Retinal Exam [facility] Start: 07-12-2022 End: 09-11-2022 Choriogonadotropin ( test) [Presence] in Urine HCG QUAL UR Lab Routine Missed menses Expected: 07/12/2022, Expires: 09/11/2022 [facility] Work Phone: Comment on above: Expected: 07/12/2022, Expires: 3 Start: 07-02-2022 DEPRESSION ASSESSMENT DEPRESSION ASSESSMENT [facility] Start: 06-26-2022 [facility] Work Phone: Start: 03-02-2022 Influenza vaccination [facility] Start: 12-27-2021 HPV TESTING HPV TESTING [facility] Start: 12-27-2021 PAP TESTING PAP TESTING [facility] Start: 12-27-2021 Screening for malignant neoplasm of cervix Cervical Cancer Screening [facility] Start: 10-18-2021 End: 12-18-2021 ALBUMIN/CREAT RATIO RND UR ALBUMIN/CREAT RATIO RND UR Lab Routine Type 2 diabetes mellitus with 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, unspecified whether director long term care insulin use (HCC) Expected: 10/18/2021, Expires: 12/18/2021 [facility] Work Phone: Comment on above: Expected: 10/18/2021, Expires: 2 Start: 10-18-2021 End: 12-18-2021 CBC W Auto Differential panel - Blood CBC + DIFF Lab Routine Type 2 diabetes mellitus with 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, unspecified whether long-term insulin use (HCC) Expected: 10/18/2021, Expires: 12/18/2021 [facility] Work Phone: Comment on above: Expected: 10/18/2021, Expires: 2 Start: 10-18-2021 End: 12-18-2021 Comprehensive metabolic 2000 panel - Serum or Plasma COMP METABOLIC PANEL Lab Routine Screening for hyperlipidemia Expected: 10/18/2021, Expires: 12/18/2021 [facility] Work Phone: Comment on above: Expected: 10/18/2021, Expires: 2 Start: 10-18-2021 End: 12-18-2021 Hemoglobin A1c/Hemoglobin.total in Blood HGB A1C Lab Routine Type 2 diabetes mellitus with 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, unspecified whether long-term insulin use (HCC) Expected: 10/18/2021, Expires: 12/18/2021 [facility] Work Phone: Comment on above: Expected: 10/18/2021, Expires: 2 Start: 10-18-2021 End: 12-18-2021 LIPID PANEL BASIC LIPID PANEL BASIC Lab Routine Screening for hyperlipidemia Expected: 10/18/2021, Expires: 12/18/2021 [facility] Work Phone: Comment on above: Expected: 10/18/2021, Expires: 2 Start: 07-14-2020 Mammography MAMMOGRAM [facility] Start: 07-14-2020 Screening for malignant neoplasm of breast Mammogram Screening [facility] Start: 07-10-2020 ANNUAL PCP TEAM CHRONIC DISEASE VISIT ANNUAL PCP TEAM CHRONIC DISEASE VISIT [facility] Start: 07-10-2020 Hepatitis B screening URINE ALBUMIN:CREATININE RATIO [facility] Start: 06-23-2020 Hepatitis B surface antibody level LDL CHOLESTEROL [facility] Start: 02-08-2020 3 comp foot exam completed DIABETIC FOOT EXAM [facility] roseann Start: 02-08-2020 Diabetic foot examination Diabetic Foot Exam [facility] Start: 09-22-2019 Hemoglobin A1c measurement HbA1C [facility] roseann Start: 09-22-2019 Hemoglobin A1c/Hemoglobin.total in Blood HBA1C [facility] Start: 04-10-2018 Hepatitis C antibody, confirmatory test DILATED RETINAL EXAM [facility] Start: 12-14-2017 Adult depression screening assessment DEPRESSION SCREENING [facility] Start: 03-07-2017 End: 04-23-2017 Follow Up Appt Other Follow Up Appt Other [facility] Work Phone: Start: 02-19-2017 End: 02-19-2017 Appointment Appointment [facility] Work Phone: Start: 07-12-2015 End: 10-13-2015 Follow Up Appt Other Follow Up Appt Other [facility] Work Phone: Start: 07-12-2015 End: 10-13-2015 Follow Up Appt Other [facility] Work Phone: Start: 07-29-2014 End: 08-05-2014 Follow up Appt 1 week Follow up Appt 1 week [facility] Work Phone: Start: 07-29-2014 End: 08-05-2014 Follow up Appt 1 week Follow up Appt 1 week [facility] Work Phone: Start: 07-14-2014 End: 07-20-2014 Follow Up Appt Other Follow Up Appt Other [facility] Work Phone: Start: 07-14-2014 End: 07-20-2014 Follow Up Appt Other Follow Up Appt Other [facility] Work Phone: Start: 08-26-2013 End: 08-27-2013 Follow Up Appt Other Follow Up Appt Other [facility] Work Phone: Start: 08-26-2013 End: 08-27-2013 Follow Up Appt Other Follow Up Appt Other [facility] Work Phone: Start: 1998 HEPATITIS B (1 of 3 - Risk 3-dose series) HEPATITIS B (1 of 3 - Risk 3-dose series) [facility] Start: 1998 Hepatitis B Vaccine (1 of 3 - 19+ 3-dose series) Hepatitis B Vaccine (1 of 3 - 19+ 3-dose series) [facility] Start: 1998 Urine microalbumin profile [facility] Start: 1997 Anxiety Screening Anxiety Screening [facility] Start: 1997 Depression Screening Depression Screening [facility] Start: 1997 HEPATITIS C SCREENING HEPATITIS C SCREENING [facility] Start: 1997 Hepatitis C screening Hepatitis C Screening [facility] Start: 1997 HIV SCREENING HIV SCREENING [facility] Start: 1997 HIV screening HIV Screening [facility] Start: 1984 COVID-19 VACCINE (1) COVID-19 VACCINE (1) [facility] Start: 01-05-1980 COVID-19 VACCINE (#1) COVID-19 VACCINE (#1) [facility] Start: 1979 HEPATITIS B (1 of 3 - 3-dose series) HEPATITIS B (1 of 3 - 3-dose series) [facility] Patient Education [facility] Work Phone: Patient referral [facility] Work Phone: End: 01-27-2023 Screening mammography bi 2-view breast inc cad KRISTI SCREENING Radiology Routine Encounter for screening mammogram for breast cancer 1 Occurrences starting 12/28/2021 until 01/27/2023 [facility] Work Phone: Comment on above: 1 Occurrences starting 12/28/2021 until 01/27/2023 Urine culture [facility] Immunizations Immunization Date Immunization Notes Care Provider Rhina lino 07-23-2018 influenza virus vacc ine, unspecified formulation Anastasiia Joaquin MD Work Phone: [facility] 04-15-2013 influenza virus vacc ine, unspecified formulation Kolby Fisher LPN [facility] 12-14-2010 tetanus toxoid, adsorbed Kolby manrique [facility] Payers Date Payer Category Payer Self-pay [id number] 2024 Unknown [id number] 2023 Private Health Insurance JASVIR WEBBX [id number] 2023 Unknown JASVIR TAY HI X [id number] 2023-Present [phone] [address] [address] [place] [address] HMO [id number] 2012 Unknown [employer] [id number] 2012 Unknown [id number] 2012 Medicaid [employer] [id number] 2012-Present [phone] [address] [place] [address] Medicaid [id number] 2012 Medicaid [id number] Unknown [id number] Unknown [id number] Unknown [id number] Unknown [id number] Unknown [id number] Social History Date Type Detail Facility Start: 07-14-2019 End: 09-23-2024 Tobacco smoking status ARIS Smokes tobacco daily [facility] History of tobacco use Cigar Smoker [facility] Start: 12-29-2019 End: 05-23-2024 Alcohol intake Current non-drinker of alcohol (finding) [facility] Start: 03-13-2019 End: 05-23-2024 Tobacco Comment 1 cigar daily [facility] Start: 1980 Sex Assigned At Not on file [facility] Start: 10-09-2021 End: 10-19-2021 Exposure to SARS-CoV-2 (event) Not sure [facility] Start: 06-26-2022 End: 12-21-2022 Tobacco smoking status NHIS Unknown if ever smoked [facility] Start: 12-27-2020 Occasional [facility] Start: 12-27-2020 Marijuana [facility] Start: 12-27-2020 Cigarettes [facility] Start: 1980 Sex Assigned At Female W [facility] History of tobacco use Cigarette Smoker C [facility] Work Phone: Start: 07-14-2019 End: 05-23-2024 Cigarettes smoked current (pack per day) - Reported 0.3 [facility] Start: 07-14-2019 End: 05-23-2024 Tobacco use and exposure Smokeless tobacco non-user [facility] Work Phone: Start: 05-23-2024 Tobacco use panel [facility] Adult Depression Screening Assessment 4 [facility] Start: 10-20-2014 Spouse/ Significant Other Spouse/ Significant Other [facility] Start: 09-23-2024 Sex Female (finding) [facility] NEGATED: Highlighted row [facility] Medical Equipment Procedure Code Equipment Code Equipment Original Text Equipment Identifier Dates [id number], [id number], [id number] Start: 10-25-2017 Comment on above: Test blood sugar(s) 4 times daily. Dx: Type 2 DM - Uncontrolled E11.65 Insulin: Yes Test blood sugar(s) 4 times daily. Dx: Type 2 DM - Controlled E11.9 Insulin: Yes Functional Status Date Assessment Result Facility 09-24-2014 Are you deaf, or do you have serious difficulty hearing No 09/24/2014 2:04 PM Jolie Lawrence [facility] No [facility] 09-24-2014 Are you blind, or do you have serious difficulty seeing, even when wearing glasses No 09/24/2014 2:04 PM Jolie Lawrence [facility] No [facility] 09-24-2014 Do you have serious difficulty walking or climbing stairs No 09/24/2014 2:04 PM EDT Jolie Dennis [facility] No [facility] 09-24-2014 Do you have difficul ty dressing or bathing No 09/24/2014 2:04 PM EDT Jolie Dennis [facility] No [facility] 09-24-2014 Because of a physica l, mental, or emotional condition, do you have difficulty doing errands alone such as visiting a physician's office or shopping No 09/24/2014 2:04 PM EDT Jolie Dennis [facility] No [facility] Mental Status Date Assessment Result Facility 06-26-2022 Cognitive function Level Of Cons ciousness Awake;Alert;Appropriate;Fol lows Commands [facility] Work Phone: 09-24-2014 Because of a physica l, mental, or emotional condition, do you have serious difficulty concentrating, remembering, or making decisions No 09/24/2014 2:04 PM EDT Jolie Dennis [facility] No [facility] Clinical Notes 05-01-2013 to 04-13-2025 Renetta Murillo LPN - 09/24/2024 9:22 AM EDT Note Date & Type Note Facility 04-13-2025 Note HNO ID: [id number] Author: CHERYL MUNOZ RN Service: ? Author [...] Munoz RN April 13, 2025 12:59 PM [facility] 04-13-2025 Note Patient Outreach ([facility]) TALATMINDY ([id number]) 1980 F Date Time Provider Department 04/13/25 CHERYL MUNOZ [facility] During your visit today, we recorded [...] glargine LANTUS 100 UNIT/ML SOLN INSULIN GLARGINE [id number] Pierce Pemberton MD 08-26-2013 [facility] ([id number]) - L. acidophilus-L. rhamnosus 15 billion cell [...] Cyst with Abscess [L05.01] 03/15/2010 NO SHOW [[id number]] 05/01/2013 07/06/2014 Brachial plexus neuropathy [G54.0] 06/04/2013 Neuropathic pain [M79.2] 06/04/2013 Type 2 diabetes mellitus with 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 *10/23/2013 Hidradenitis suppurativa [L73.2] 10/26/2013 HPV test positive [[id number]] 07/16/2014 Tobacco use disorder [F17.200] 12/14/2016 History of substance abuse [F19.11] 07/23/2018 Pain in joint of left shoulder region [M25.512] 09/05/2018 Abnormal mammogram [R92.8] 10/14/2019 Encounter Status:Closed by CHERYL MUNOZ on 04/13/25 [facility] 09-25-2024 Note HNO ID: [id number] Author: ANASTASIIA JOAQUIN MD Service: ? Author Type: Resident Type: Progress Notes Filed: 09/25/2024 13:17 Note Text: Noted, thanks. [facility] 09-25-2024 Note HNO ID: [id number] Author: SUSHMA QUIGLEY LPN Service: ? Author Type: LICENSED NURSE Type: Progress Notes Filed: 09/25/2024 11:26 Note Text: ED Follow Up: Patient discharged from [facility] ED on 09/23/24. Attempted to call patient, no answer.Unable to leave a message due to message comes on stating this number has 'call restrictions'. This is the second attempt to contact this patient for an ED Outreach and not being able to reach this patient. Sushma Quigley LPN [facility] 09-24-2024 Note HNO ID: [id number] Author: RENETTA MURILLO LPN Service: ? Author Type: LICENSED NURSE Type: Progress Notes Filed: 09/24/2024 09:24 Note Text: ED Follow Up: Patient discharged from [facility] ED on 09/23/24. Attempted to call patient, no answer.Unable to leave a message due to message comes on stating this number has call restrictions and call can not be completed. Renetta Murillo LPN [facility] 09-24-2024 History of Present illness Narrative ED Follow Up: Patient discharged from [facility] ED on 09/23/24. Attempted to call patient, no answer.Unable to leave a message due to message comes on stating this number has call restrictions and call can not be completed. Renetta Murillo LPN documented in this encounter [facility] 09-24-2024 Note Patient Outreach ([facility]) MINDY FAULKNER ([id number]) 1980 F Date Time Provider Department 09/24/24 RENETTA MURILLO [facility] During your visit today, we recorded the following information about you: Renetta Murillo LPN 09/24/2024 9:24 AM Signed ED Follow Up: Patient discharged from [facility] ED on 09/23/24. Attempted to call patient, no answer.Unable to leave a message due to message comes on stating this number has call restrictions and call can not be completed. BRE Darden Abbigail, LPN 09/25/2024 11:26 AM Signed ED Follow Up: Patient discharged from [facility] ED on 09/23/24. Attempted to call [...] for Visit: ED outreach [Other] Cmt: 09/23/24 [facility] Prescriptions as of 09/25/2024 - ibuprofen [...] glargine LANTUS 100 UNIT/ML SOLN INSULIN GLARGINE [id number] Pierce Pemberton MD 08-26-2013 [facility] ([id number]) - L. acidophilus-L. rhamnosus 15 billion cell [...] Cyst with Abscess [L05.01] 03/15/2010 NO SHOW [[id number]] 05/01/2013 07/06/2014 Brachial plexus neuropathy [G54.0] 06/04/2013 Neuropathic pain [M79.2] 06/04/2013 Type 2 diabetes mellitus with 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 *10/23/2013 Hidradenitis suppurativa [L73.2] 10/26/2013 HPV test positive [[id number]] 07/16/2014 Tobacco use disorder [F17.200] 12/14/2016 History of substance abuse [F19.11] 07/23/2018 Pain in joint of left shoulder region [M25.512] 09/05/2018 Abnormal mammogram [R92.8] 10/14/2019 Encounter Status:Closed by RENETTA MURILLO on 09/24/24 [facility] 09-23-2024 Discharge summary [facility] 09-23-2024 Discharge summary Note Date/Time September 23, 2024 3:55pm [facility] Medical Records Department [address] [place] [address] Emergency Department Summary 09/23/24 MR#: [id number] Acct: [id number] Name: MINDY FAULKNER Rep #:[id number] : [...] Does not see a primary care physician. [facility] Medical History Wears dentures Wears glasses Anxiety [...] % (Auto) 53.1 Lymph % (Auto) 35.8 Kimball % (Auto) 6.8 Eos % (Auto) 2.9 [...] Clarity Cloudy Urine pH 6.5 Ur Specific Sullivan 1.015 Urine Protein 500 H Urine Glucose [...] Referrals: Yariel Cruz MD [Med Staff - Mechanical Maintenance Instructor] - 3-5 Days Care Physician,No Primary [Primary Care Provider] - Activity Restrictions/Additional Instructions: Keep your appointment with primary care physician. Print Language: Macedonian Disposition Disposition: Home, Self Care What to do if you have Problems For any increased pain, shortness of breath, bleeding, nausea or vomiting, chestpain, or any unexpected problems, contact your Primary Care Provider. Call [facility] ([phone]) or report to the closest Emergency Room. Call 911 if necessary. 09/23/24 [id number] <Electronically signed by Jose Garza DO> Cosigner Signature (if applicable): CC: No Primary Care Physician ~ Signed [facility] [facility] Phone: 1(308) 516-857303-25-2025 NotePatient Outreach (AGCFM) MINDY FAULKNER ([id number]) 1980 F Date Time Provider Department 09/23/24 RIYA SILVERIO [facility] During your visit today, we recorded [...] breast cancer [Z12.31] Order(s):KRISTI SCREENING W NEGRA [[id number]] Order #: [id number] FUTURE Prescriptions as of 10/24/2024 - ibuprofen [...] glargine LANTUS 100 UNIT/ML SOLN INSULIN GLARGINE [id number] Pierce Pemberton MD 08-26-2013 [facility] ([id number]) - L. acidophilus-L. rhamnosus 15 billion cell [...] Cyst with Abscess [L05.01] 03/15/2010 NO SHOW [230506] 05/01/2013 07/06/2014 Brachial plexus neuropathy [G54.0] 06/04/2013 Neuropathic pain [M79.2] 06/04/2013 Type 2 diabetes mellitus with 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 *10/23/2013 Hidradenitis suppurativa [L73.2] 10/26/2013 HPV test positive [XDM5886] 07/16/2014 Tobacco use disorder [F17.200] 12/14/2016 History of substance abuse [F19.11] 07/23/2018 Pain in joint of left shoulder region [M25.512] 09/05/2018 Abnormal mammogram [R92.8] 10/14/2019 Encounter Status:Closed by DEMOND ASCENCIO on 10/24/24[facility] 07-08-2024 Telephone encounter Note* Telephone Encounter - Mali Mercado - 07/08/2024 9:14 AM EST Patient called to make 1st appt in office I gave her directions etc Mali Mercado July 08, 2024 9:14 AM [facility]01-07-2025 Miscellaneous Notes* Telephone Encounter - Mali Mercado - 07/08/2024 9:14 AM EST Patient called to make 1st appt in office I gave her directions etc Mali Mercado July 08, 2024 9:14 AM documented in this encounterUniversity Hospitals [facility]12-02-2024 NoteHNO ID: [id number] Author: CRISTINA ESPARZA LSW Service: ? Author Type: Chain Hoist Operator Type: Progress Notes Filed: 06/02/2024 15:42 Note Text: Outcall to patient as per referral below: No response. Left voice message. As patient resides in [place] would provide local agencies: [employer], [address] [address] [employer]: [facility] [address] [place] [address] Patient: Mindy Faulkner ([id number]) Sex: Female : 1980 [facility] ID Number: [id number] Ewiiaapaayp ID Number: [id number] [facility]: [id number] [facility]: [id number] Address: [address] [facility] [place] [address] CONSULT TO WIRE INSPECTOR ( IMCA/CFM ONLY) Priority: Routine Class: Jarrett [...] Date:05/27/2024 Ordering User:ANASTASIIA JOAQUIN Authorizing Provider:Johann Montiel Department:[facility] ACC CFM Location: [facility] Provider ID: [id number] NPI Number: [id number] Priority: Routine Referred by: None Referral type: Transition of Care Referral reason: PCP Requested Referral To Location/POS: None To Specialty: None Visits requested: 1 Expiration Date: 08/25/24 Referred to: Not Available Electronically Signed by: ANASTASIIA JOAQUIN Telephone 05/27/2024 [facility] Anastasiia Joaquin MD Family Medicine Mood disorder (HCC) Dx All Conversations (Newest Message First)View All Conversations on this Encounter June 02, 2024 06/02/24 3:18 PM You routed this conversation to Anastasiia Joaquin MD May 27, 2024 05/27/24 9:17 AM Anastasiia Joaquin MD routed this conversation to [facility] Social Work Referral Pool Anastasiia [...] is also interested in speaking with our forensic social worker so I also let her know I would place a consult for [facility]. Provided number for suicide/crisis hotline 988. Patient has no questions. Anastasiia Joaquin MD 05/27/2024 9:13 [facility]12-02-2024 History of Present illness Narrative* Cristina Esparza, GROUND SERVICE EQUIPMENT MECHANIC - 06/02/2024 3:20 PM EST Images from the original note were not included. Outcall to patient as per referral below: No response. Left voice message. As patient resides in [place] would provide local agencies: [employer] [address] [place] [address] [employer]: Referral [address] [address] Patient: Mindy Faulkner ([id number]) Sex: Female : 1980 [facility] ID Number: [id number] Ewiiaapaayp ID Number: [id number] [facility]: [id number] [facility]: [id number] Address: [address] [facility] [place] [address] CONSULT TO WIRE INSPECTOR ( IMCA/CFM ONLY) Priority: Routine Class: Jarrett [...] Date:05/27/2024 Ordering User:ANASTASIIA JOAQUIN Authorizing Provider:Johann Montiel Department:[facility] ACC CFM Location: [facility] Provider ID: [id number] NPI Number: [id number] Priority: Routine Referred by: None Referral type: Transition of Care Referral reason: PCP Requested Referral To Location/POS: None To Specialty: None Visits requested: 1 Expiration Date: 08/25/24 Referred to: Not Available Electronically Signed by: ANASTASIIA JOAQUIN Telephone 05/27/2024 [facility] Anastasiia Joaquin MD Family Medicine Mood disorder (HCC) Dx All Conversations (Newest Message First)View All Conversations on this Encounter June 02, 2024 CG 06/02/24 3:18 PM You routed this conversation to Anastasiia Joaquin MD May 27, 2024 NEL 05/27/24 9:17 AM Anastasiia Joaquin MD routed this conversation to [facility] Social Work Referral Pool Anastasiia [...] is also interested in speaking with our forensic social worker so I also let her know I would place a consult for CFM SW. Provided number for suicide/crisis hotline 988. Patient has no questions. Anastasiia Joaquin MD 05/27/2024 9:13 AM documented in this encounterUniversity Hospitals Ely[facility] Center11-26-2024 Telephone encounter Note * Telephone [...] is also interested in speaking with our forensic social worker so I also let her know I would place a consult for CFM SW. Provided number for suicide/crisis hotline 988. Patient has no questions. Anastasiia Joaquin MD 05/27/2024 9:13 AM [facility]11-26-2024 Miscellaneous Notes* Telephone Encounter - [...] is also interested in speaking with our forensic social worker so I also let her know I would place a consult for [facility]. Provided number for suicide/crisis hotline 988. Patient has no questions. Anastasiia Joaquin MD 05/27/2024 9:13 AM documented in this encounterUniversity Hospitals Elyria Medical Center11-24-2024 NoteHNO ID: [id number] Author: JOHANN MONTIEL MD Service: ? Author [...] for further details. Johann Montiel, [facility]11-22-2024 Instructions* Patient Instructions* Anastasiia Joaquin MD [...] or provider preference: Central/Multiple Locations: [facility]: [address] [facility] [phone] Duglas Roland: [address] Michelle Bañuelos [place] - [phone] [facility].: [address] [facility] - [phone] [facility]: 7800 [facility] - [phone] [place] [facility]: 4500 [facility] - [phone] (Medicaid only) [facility] Center for Geriatric Medicine: Multiple Locations - [phone] [facility] Department of Psychiatry & Psychology at [phone] (select Option 1) or [phone] (select Option 1) Connections: Multiple Locations - [phone] (Medicaid only) [facility] - Multiple Locations - [phone] (Medicaid only) [facility], [facility].: Multiple Locations - [phone] Psychological and Behavioral Consultants: Multiple Locations - [phone] Recovery Resources: Multiple Locations - [phone] [facility] Locations: [facility]: [address] [facility] - [phone] [facility]: [address] [facility]. [place] - [phone] Juanis Webb PhD and Associates: [address] [facility] - [phone] [place] [id number] [facility] [address] Flores - [phone] Em Calloway MD: [address] [facility] - [phone] [facility] 1834 Jamari Bernal , [place] - [phone] [facility]: 992 [facility] - [phone] [facility] Counseling/Growth Center, [address] [place] [address] - [phone] [place] Locations: Lynn Davis MD [facility] Associates Inc: [address] Kayleen Enrique, [place] - [phone] Juanis Webb PhD and Associates: [address] [facility] - [phone] [facility]: [address] [facility] - [phone] [facility], Inc.: 3690 [facility] - [phone] [facility], [address], [place] - [phone] [facility], [address], [place] - [phone] [facility]: [address] Tim Lara. [place] - [phone] [facility] Locations: [facility] Psychological and Counseling Services of [facility] L W [facility] -[phone] [facility] L Jannette Enrique, [facility] - [phone] [facility] Psychiatry: [address] [place] [address], [place] - [phone] [facility]: [address] [facility], [facility] - [phone] [facility] - [address] [facility] - [phone] Myra Locations: [facility] MD Psychiatry, Sleep Medicine - 24[address] [facility] [phone] or [phone] Fani Johnson MD - 2422 [facility] [phone] Psychological and Behavioral Consultants - NIMO Ashford, DCSW - [address] [phone] [facility] - 28[address] [facility] [phone] [facility] (NO Commercial Insurance accepted) - [address] [place] [phone] [facility] - Kal Schulz, PCC, LIDC - [address] [place] [address] [phone] Karmen Ruiz DIRECTOR OF SPORTS MEDICINE - 240[address] [facility] [phone] June Mart, [facility] - [address] [place] [phone] All Ramos, PhD - [address] [place] [phone] Lali Sampson, DIRECTOR OF SPORTS MEDICINE - 850 [facility] [phone] Faviola Victoria, PCCS, LICDC (No Medicare, [facility]) - [address] [phone] Clarence Boyle, [facility] - [address] [place], [place] - [phone] Austin Randhawa, [address] [phone] For additional resources and information please call or review the website: [email or web address] [email or web address] [email or web address]/ If you are feeling suicidal, please call [employer], , or the [employer] Suicide Hotline , Call 327, or go to your nearest emergency room documented in this encounterUniversity Hospitals Elyria Medical Center11-22-2024 NoteHNO ID: [id number] Author: ANASTASIIA JOAQUIN MD Service: ? Author Type: Resident Type: Progress Notes Filed: 05/23/2024 19:33 Note Text: Anastasiia Joaquin MD [facility] Family Medicine [address] [place] [address] Mechanical Maintenance Instructor Center / [address] [place], [place] [address] Visit Date: May 23, 2024 Name: Mindy Faulkner Date of : 1980 MRN/E #: [id number] Chief Complaint: Patient presents with: Establish Care: RT side arm, breast, and leg w/o injury x 1 month Patient has hidradenitis thinks pain is associated with disorder Subjective Mindy Faulkner is a 43 year old female here for a new patient visit to establish care and also for mood concerns Previously received care at [facility] 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 Hidradenitis [...] she would never harm herself -formerly saw [facility] - Dr. Corey, on medicine that altered [...] glargine LANTUS 100 UNIT/ML SOLN INSULIN GLARGINE [id number] Pierce Pemberton MD 08-26-2013 [facility] ([id number]) (Patient not taking: Reported on 05/23/2024) L. [...] tablet by mouth t (more content not included)...[facility]11-22-2024 History of Present illness Narrative* Anastasiia Joaquin MD - 05/23/2024 11:05 AM EST Images from the original note were not included. Anastasiia Joaquin MD [facility] for [facility] [address] [facility] Mechanical Maintenance Instructor Center / [address] Floor [place] [address] Visit Date: May 23, 2024 Name: Mindy Faulkner Date of : 1980 MRN/E #: [id number] Chief Complaint: Patient presents with: Establish Care: RT side arm, breast, and leg w/o injury x 1 month Patient has hidradenitis thinks pain is associated with disorder Subjective Mindy Faulkner is a 43 year old female here for a new patient visit to establish care and also for mood concerns Previously received care at [facility] 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 Hidradenitis [...] she would never harm herself -formerly saw [facility] - Dr. Corey, on medicine that altered [...] glargine LANTUS 100 UNIT/ML SOLN INSULIN GLARGINE [id number] Pierce Pmeberton MD 08-26-2013 [facility] ([id number]) (Patient not taking: Reported on 05/23/2024) L. 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 Anastasiia Joaquin MD Family Medicine, PGY-I [facility] Date: May 23, 2024 Time: 6:56 PM documented in this encounterUniversity Hospitals Elyria Medical Center01-11-2023 History of Present illness Narrative* [...] 2 weeks.Evette Rivera RN documented in this encounterUniversity Hospitals Elyria Medical Center12-26-2022 Hospital Discharge instructions Additional Instructions Apply ice to the lower back 6-10 times a day for the next 3 to 5 days. Avoid activity that causes you increased painWSelect Medical Specialty Hospital - [facility] Work Phone: 1(473) 876-738604-19-2022 History of Present illness Narrative* Janeth Low [...] Care Gap or Scheduling/Wellness visits Payer: Payor: [facility] MEDICAID / Plan: [facility] MEDICAID / Product Type: Medicaid / [...] 14, 2021 4:24 PM documented in this encounterUniversity Hospitals Elyria Medical Center10-31-2013 History of Past illness Narrative* Problem Noted Date Resolved Date NO SHOW 05/01/2013 07/06/2014 documented as of this encounter (statuses as of 10/26/2021) [facility] History of Past illness Narrative* Problem Noted Date Resolved Date NO SHOW 05/01/2013 07/06/2014 documented as of this encounter (statuses as of 01/02/2022) [facility] History of Past illness Narrative* Problem Noted Date Resolved Date NO SHOW 05/01/2013 07/06/2014 documented as of this encounter (statuses as of 07/12/2022) [facility] note* Diagnosis Type 2 diabetes mellitus with 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, unspecified whether long-term insulin use (HCC)- Primary Screening for hyperlipidemia Screening for lipoid disorders documented in this encounter [facility] note* Diagnosis Encounter for screening mammogram for breast cancer documented in this encounter [facility] noteNo assessment information availableWSelect Medical Specialty [facility] Work Phone: Evaluation note* Diagnosis Missed menses- Primary Absence of menstruation documented in this encounter [facility] note* Diagnosis Mood disorder (HCC)- Primary Unspecified episodic mood disorder Elevated blood pressure reading without diagnosis of hypertension documented in this encounter [facility] note* Diagnosis Mood disorder (HCC)- Primary Unspecified episodic mood disorder documented in this encounter [facility] note* Diagnosis Needs assistance with community resources- Primary [facility] [place] [facility] Additional Instructions Keep your appointment with primary care physician.[facility] Work Phone: Reason for referral (narrative)* Diagnostic Procedure Only (Routine) - Pending Review Specialty Diagnoses / Procedures Referred By Sravani brenner Referred To Contact [facility] Diagnoses Encounter for screening mammogram for breast cancer Procedures KRISTI SCREENING SCREENING MAMMOGRAPHY BI 2-VIEW BREAST INC CAD Joey Bradshaw MD [address] [place] [address] Br Imaging [facility] [place] [address] Referral ID Status Reason Start Date Expiration Date Visits Requested Visits Authorized [id number] Pending Review Auto-Generat ed Referral 12/28/2021 01/27/2023 1 1 [facility] for referral (narrative)No reason for referral information availableWSelect Medical [facility] Work Phone: Summary Purpose Family History No Family History Records Found Relationship Condition Age at Onset Recorded Date/T ivanna Not Specified Diabetes mellitus Unknown Advance Directives No Advanced Directives Records FoundDocuments on File Type Date Recorded Patient Entry Level Sales Associate Expl anation Advance Directive(s) 03/20/2019 9:08 AM Advance Directive(s) 08/01/2018 8:56 AM Documents on File Type Date Recorded Patient Entry Level Sales Associate Expl anation Advance Directive(s) 03/20/2019 9:08 AM Advance Directive(s) 08/01/2018 8:56 AM Advance Directive Response Recorded Date/ Time Advance Directives No May 10:47pm Living Will No June 26, 2 022 1:04pm Power of Machine Cloth Examiner No June 26, 2022 1:04pm Advance Directive Response Recorded Date/ Time Advance Directives No May 11:47pm Living Will No December 21, 2022 4:55pm Power of Machine Cloth Examiner No December 21 4:55pm Advance Directive Response Recorded Date/ Time Living Will No September 23, 2024 1:18pm Do you have a Healthcare Power of Machine Cloth Examiner? No September 23, 2024 1:18pm Advance Directives No May 11:47pm Chief Complaint and Reason for Visit Chief Complaint GENERAL Chief Complaint LOWER EXTREMITY Chief Complaint Admit Date SPASMS September 23, 2024 1:0 4pm Reason for Referral Specialty Diagnoses / Procedures Referred By Contac t Referred To Contact Diagnoses Mood disorder (HCC) Procedures CONSULT TO PRIMARY CARE BEHAVIORAL HEALTH ADULT OFFICE/[facility] 60 MINUTES Russell Ortega MD [address] [place] [address] Referral ID Status Reason Start Date Expiration Date Visits Requested Visits Authorized [id number] Pending Review PCP Requested Referral 4 08/21/2024 1 1 Specialty Diagnoses / Procedures Referred By Contac t Referred To Contact Diagnoses Mood disorder (HCC) Procedures CONSULT TO WIRE INSPECTOR (AG IMCA/CFM ONLY) Johann Montiel MD [address] [place] [address] Referral ID Status Reason Start Date Expiration Date Visits Requested Visits Authorized [id number] Ref Not Required PCP Requested Referral 4 08/25/2024 1 1 Additional Source Comments INFORMATION SOURCE (unrecogn ized section and content) DATE CREATED AUTHOR 08/19/2018 [facility] DATE CREATED AUTHOR AUTHOR'S ORGANIZ ATION 07/14/[address] [facility] DATE CREATED AUTHOR AUTHOR'S ORGANIZ ATION 04/14/2025 [facility] DATE CREATED AUTHOR AUTHOR'S ORGANIZ ATION 05/13/2025 [facility] Source Comments (unrecognize d section and content) In the event this informatio n is protected by the Federal Confidentiality of Alcohol and Drug Abuse Patient Records regulations: The Federal rules restrict any use of the information to criminally investigate or prosecute any alcohol or drug abuse patient.[facility] Medical CenterIn the event this information is protected by the Federal Confidentiality of Alcohol and Drug Abuse Patient Records regulations: The Federal rules restrict any use of the information to criminally investigate or prosecute any alcohol or drug abuse patient.[facility] CenterIn the event this information is protected by the Federal Confidentiality of Alcohol and Drug Abuse Patient Records regulations: The Federal rules restrict any use of the information to criminally investigate or prosecute any alcohol or drug abuse patient.[facility] CenterIn the event this information is protected by the Federal Confidentiality of Alcohol and Drug Abuse Patient Records regulations: The Federal rules restrict any use of the information to criminally investigate or prosecute any alcohol or drug abuse patient.[facility] CenterIn the event this information is protected by the Federal Confidentiality of Alcohol and Drug Abuse Patient Records regulations: The Federal rules restrict any use of the information to criminally investigate or prosecute any alcohol or drug abuse patient.[facility] CenterIn the event this information is protected by the Federal Confidentiality of Alcohol and Drug Abuse Patient Records regulations: The Federal rules restrict any use of the information to criminally investigate or prosecute any alcohol or drug abuse patient.[facility] CenterIn the event this information is protected by the Federal Confidentiality of Alcohol and Drug Abuse Patient Records regulations: The Federal rules restrict any use of the information to criminally investigate or prosecute any alcohol or drug abuse patient.[facility] CenterIn the event this information is protected by the Federal Confidentiality of Alcohol and Drug Abuse Patient Records regulations: The Federal rules restrict any use of the information to criminally investigate or prosecute any alcohol or drug abuse patient.[facility] Reason for Visit (unrecogniz ed section and content) Reason Onset Date Comments PHMA/Care Gap Outreach 10/14/2021 Reason Comments requests test Reason Comments Establish Care RT side arm, breast, and leg w/o injury x 1 month Patient has hidradenitis thinks pain is associated with disorder Reason Comments Appointment Reason Onset Date Comments ED outreach 09/24/2024 09/23/24 [facility] Care Teams (unrecognized sec tion and content) Contact Centre Supervisor Relationship Specialty Start Date End Date Joey Bradshaw MD [address] [place], [place] [phone] PCP - General Family Practice 09/24/14 Contact Centre Supervisor Relationship Specialty Start Date End Date Joey Bradshaw MD [address] [place], [place] [phone] PCP - General Family Practice 09/24/14 Contact Centre Supervisor Relationship Specialty Start Date End Date Joey Bradshaw MD [address] [place], [place] [phone] PCP - General Family Medicine 09/24/14 Team Status: Active Member Role Status Dates Dr. Joey Bradshaw MD Family Provider Active Dr. Joey Bradshaw MD Primary Care Provider Active Team Status: Inactive Member Role Status Dates Dr. Joey Bradshaw MD Primary Care Provider Active Dr. Olegario Hastings MD Emergency Provider Active Contact Centre Supervisor Relationship Specialty Start Date End Date Riya Silverio DO [address] [place], [place] [phone] PCP - General Family Medicine 05/23/24 Anastasiia Joaquin MD [address] [place] [address] [place], [place] [phone] PCP Resident Family Medicine 05/23/24 Contact Centre Supervisor Relationship Specialty Start Date End Date Riya Silverio DO [address] [place], [place] [phone] PCP - General Family Medicine 05/23/24 Anastasiia Joaquin MD [address] [place] [address] PCP Resident Family Medicine 05/23/24 Contact Centre Supervisor Relationship Specialty Start Date End Date Riya Silverio DO [address] [place], [place] [id number] PCP - General Family Medicine 05/23/24 Anastasiia Joaquin MD [address] [place] [address] PCP Resident Family Medicine 05/23/24 Contact Centre Supervisor Relationship Specialty Start Date End Date Riya Silverio DO [address] [place] [address] PCP - General Family Medicine 05/23/24 Anastasiia Joaquin MD [address] [place] [address] PCP Resident Family Medicine 05/23/24 Contact Centre Supervisor Relationship Specialty Start Date End Date Riya Silverio DO [address] [place], [place] [id number] PCP - General Family Medicine 05/23/24 Anastasiia Joaquin MD [address] [place] [address] PCP Resident Family Medicine 05/23/24 Team Status: [...] BE BASED ON THE PRIMARY CLINICAL RECORDS. [employer] provides no warranty or guarantee of the accuracy or completeness of information in this document.
--- NOTE | 2025-06-21 19:22 | ED.RN ---
Report called to VISHAL Rocha in ICU. Denies further questions at this time.
--- NOTE | 2025-06-21 19:24 | CM.ED ---
Social Work Date of referral: 06/21/25 Reason for referral: Support Referred by: Social Work identification Patient provided consent to social work visit, was sitting up in hospital bed and was awake and oriented. Patient was not receiving any breathing treatment at the time of the visit. Patient stated she was feeling much better and stated her family is aware she's here and denied the need for social services director to try and get a hold of anyone at this time. Patient denied any other needs/concerns. Karmen Sanchez, OUTSIDE MAINTENANCE WORKER, WELDING OPERATOR
[2025-06-21] MEDS: Nitroglycerin Infusion 250 ML 15 MG CONT INF (19:46)
[2025-06-21 20:00] LABS: Troponin T High Sens 2 HR 206 ng/L (<=14)
[2025-06-21] MEDS: Furosemide 500 MG in Empty Viaflex 50 mL 1 EACH CONT INF (20:04)
[2025-06-21] MEDS: Heparin Injection (Vial) 5,000 UNIT/ML VIAL 5000 UNIT SC (20:05)
[2025-06-21 21:36] LABS: Troponin T High Sens 4 HR 211 ng/L (<=14)
--- NOTE | 2025-06-21 21:39 | NURSING ---
Patient having increased work of breathing and moaning and grunting. Agreeable to wear the bipap for some time. Patient placed on bipap, but soon after she started moaning and kicking. When asked what was wrong, patient stated she was in so much pain all over. Explained to patient that she is so swollen with extra fluid and that it will take some time for the lasix to work. Patient closed her eyes but was still moaning. Within several minutes patient ripped off her bipap mask because she was in so much pain. Explained to patient that we are waiting for the doctor to respond. Patient placed back on nasal cannula.
--- NOTE | 2025-06-21 23:48 | CPS ---
Patient wore PAP therapy for short while in ER for respiratory distress, patient did not tolerate well. RT took patient off bipap for transfer to ICU and gave the patient a break from the mask. RT attempted to place bipap back on patient for the night due to increased work of breathing. Patient only tolerated for 10-20 minutes before taking the mask off herself. Patient very restless at this time. On 4L 98%. Will attempt PAP therapy again once patient is more comfortable and resting.
[2025-06-21] MEDS: 0.9% Saline Lock 10 ML Syringe IV (23:49)
[2025-06-22] VITALS (60 sets, daily range): BP systolic 128–166; BP diastolic 56–120; PULSE 91–119; RESP 11–28; TEMP 36.5–37.3; O2SAT 95–100; BMI 35.5
[2025-06-22] MEDS: Nitroglycerin Infusion 250 ML 72 MG CONT INF (00:35)
[2025-06-22] MEDS: 0.9% Saline Lock 10 ML Syringe IV ×4 (02:03→19:25)
[2025-06-22] MEDS: Nitroglycerin Infusion 250 ML 84 MG CONT INF ×2 (04:00→06:56)
[2025-06-22 04:23] LABS: Hematocrit 23.2 % (37-47); Hemoglobin 7.4 g/dL (12.0-15.0); Immature Granulocytes Count 0.030 X10^3/uL (0.0-0.0); Mean Corp Hgb Conc 31.9 g/dL (32-36); Mean Corpuscular Volume 86.9 fL (81-99); Mean Platelet Vol. 11.1 fl (6.2-12.0); NRBC Flagged by Analyzer 0 % (0-5); Platelet Count 218 K/mm3 (150-450); RBC Distribution Width CV 13.1 % (11.6-14.6); RBC Distribution Width SD 41.7 fl (35.1-43.9); Red Blood Count 2.67 M/mm3 (4.2-5.4); White Blood Count 10.5 K/mm3 (4.4-11.0)
[2025-06-22 04:39] LABS: Anion Gap 12 (5-15); BUN 32 mg/dL (4-19); BUN/Creat Ratio 10.6 RATIO (10-20); Calcium,Total 7.6 mg/dL (7.6-11.0); Carbon Dioxide 22.1 mmol/L (21.0-32.0); Chloride 106 mmol/L (98-108); Estimated Creatinine Clearance 25.62 ml/min (50-250); Glucose 182 mg/dL (70-99); Potassium 3.9 mmol/L (3.3-5.1)
[2025-06-22 04:59] LABS: Partial Thromboplast Time 24.3 Seconds (24.1-36.2); Prothrombin Time (Protime)PT. 13.8 SECONDS (11.7-14.9)
--- NOTE | 2025-06-22 07:45 | VDLE_ITS ---
Reason For Study Reason For Study: Bilateral leg pain RIGHT LEFT GSV is normal. GSV is normal. CFV is compressible, spontaneous, phasic, competent CFV is compressible, spontaneous, phasic, competent, and demonstrates normal augmentation. and demonstrates normal augmentation. FV is compressible, spontaneous, phasic, competent FV is compressible, spontaneous, phasic, competent and demonstrates normal augmentation. and demonstrates normal augmentation. POP V is compressible, spontaneous, phasic, competent POP V is compressible, spontaneous, phasic, competent and demonstrates normal augmentation. and demonstrates normal augmentation. T/P Trunk is compressible. T/P Trunk is compressible. PTV is compressible. PTV is compressible. RT PerV is compressible. LT PerV is compressible. Procedure This is a venous duplex using B-mode, color flow and spectral Doppler. Exam performed in department. A preliminary report was called and/or faxed to ICU. VL/Venous Duplex US - Yoshi Extrem Interpretation Summary Deep veins of the bilateral lower extremities are patent and compressible segme ntally. There is no evidence of bilateral lower extremity deep vein thrombosis. The bilateral great saphenous veins appea r patent and compressible segmentally. Ordering Physician: Jl Clements Performed By: Parisa Yanez RVT
--- NOTE | 2025-06-22 09:05 | PN.HOSP_ITS ---
Reason for Visit Chief Complaint: Shortness of breath Subjective Subjective Patient was seen and examined today, she is alert, she states she wants to get better. Patient CBC today was remarkable for hemoglobin of 7.4, CBC showed a white blood cell count of 10.5, creatinine today was 2.97 and BUN was 32. Glucose was 182, troponins were as follows: 195, 206, and 211 Objective Data Objective Data Vital Signs: Vital Signs Temp Pulse Resp BP Pulse Ox O2 Del Method O2 Flow Rate 98.9 F 103 H 16 142/88 H 99 Nasal Cannula 3 06/22/25 08:00 06/22/25 08:00 06/22/25 08:00 06/22/25 08:00 06/22/25 08:00 06/22/25 08:00 06/22/25 08:00 FiO2 30 06/21/25 22:00 Oxygen Flow Rate (L/min) 3 Oxygen Delivery Method Nasal Cannula Weight: 91 kg Body Mass Index (BMI) 35.5 Intake & Output: Intake and Output for Last 24 Hours 06/20/25 06/21/25 06/22/25 23:59 23:59 23:59 Intake Total 177.40 / 193.15 753.43 / 753.43 Output Total 1185 / 1185 1200 / 1200 Balance -1007.60 / -991.85 -446.57 / -446.57 Lab / Micro Data 06/22/25 04:17 06/22/25 04:17 Labs: Laboratory Results - last 24 hr 06/21/25 16:54: POC Glucose 301 H 06/21/25 17:05: WBC 10.1, RBC 3.35 L, Hgb 9.4 L, Hct 29.5 L, MCV 88.1, MCH 28.1, MCHC 31.9 L, RDW Std Deviation 42.6, RDW Coeff of Giselle 13.2, Plt Count 420, MPV 11.0, Immature Gran % (Auto) 0.400, Neut % (Auto) 75.1 H, Lymph % (Auto) 19.0, [place] % (Auto) 3.9, Eos % (Auto) 0.9, Baso % (Auto) 0.7, Absolute Neuts (auto) 7.6, Absolute Lymphs (auto) 1.92, Nucleated RBC % 0, Sodium 139, Potassium 4.4, Chloride 106, Carbon Dioxide 21.8, Anion Gap 12, BUN 32 H, Creatinine 3.03 H, E stim Creat Clear Calc 25.50 L, Est GFR (MDRD) Non-Af 19 L, BUN/Creatinine Ratio 10.5, Glucose 325 H, Calcium 7.8, Troponin T High Sens 195 H* [place], [place] [address] H 06/21/25 19:15: Troponin T Hi Sens 2 Hr 206 H* 06/21/25 20:23: POC Glucose 248 H 06/21/25 21:05: Troponin T Hi Sens 4Hr 211 H* 06/21/25 23:49: POC Glucose 222 H 06/22/25 04:17: WBC 10.5, RBC 2.67 L, Hgb 7.4 L, Hct 23.2 L, MCV 86.9, MCH 27.7, MCHC 31.9 L, RDW Std Deviation 41.7, RDW Coeff of Giselle 13.1, Plt Count 218, MPV 11.1, Immature Gran % (Auto) 0.300, Neut % (Auto) 75.8 H, Lymph % (Auto) 15.4 L, [place] % (Auto) 7.5, Eos % (Auto) 0.4, Baso % (Auto) 0.6, Absolute Neuts (auto) 8.0 H, Absolute Lymphs (auto) 1.62, Nucleated RBC % 0, PT 13.8, INR 1.0, APTT 24.3, Sodium 140, Potassium 3.9, Chloride 106, Carbon Dioxide 22.1, Anion Gap 12, BUN 32 H, Creatinine 2.97 H, Estim Creat Clear Calc 25.62 L, Est GFR (MDRD) Non-Af 19 L, BUN/Creatinine Ratio 10.6, Glucose 182 H, Calcium 7.6 06/22/25 05:12: POC Glucose 159 H ABG Data ABG results: ABG 06/21/25 17:14 Specimen Type RODRIGUE Sample Site Not entered VBG pH 7.26 L VBG pO2 41 H VBG HCO3 24 VBG Total CO2 26 VBG O2 Sat (Calc) 67 VBG Base Excess -3 L POC Mix VBG pCO2 Pt Tmp 54.3 H O2 Delivery Device Not entered Radiography Diagnostic Testing: Radiology Impression Chest X-Ray 06/21/25 17:08 IMPRESSION: Pulmonary findings as above. Reading Location: [facility] Patient's Goals Of Care - F/U Goals Reviewed Goals of care reviewed with patient: NA-No significant change in clinical Status /major procedure scheduled (Patient continues to voice that she wants to get well, she wants to have an improvement in her breathing) Physical Exam Const alert and no apparent distress General Appearance: cooperative, well kempt and well developed Orientation / Consciousness: awake, oriented to person and oriented to place HEENT normocephalic, head/scalp atraumatic and moist oral mucous membranes Eyes PERRL, EOMs intact bilaterally and conjunctivae normal Neck supple, no JVD, thyroid normal and no carotid bruits General: trachea midline Resp normal respiratory effort, no retractions, no use of accessory muscles and clear to auscultation bilaterally Auscultation: Negative for rales, rhonchi or wheezes Cardio regular rate, regular rhythm, S1 normal heart sound, S2 normal heart sound, no murmurs, no rub and no gallops GI normal to inspection, nondistended, normoactive bowel sounds, soft to palpation, non-tender and non-distended Extremity Extremity Narrative: Generalized truncal edema and leg edema as noted Skin no rashes or lesions noted General Skin Exam: no breakdown Neuro CN's II-XII intact bilaterally, no focal motor deficits and no sensory deficits noted Sensorium / Orientation: awake, alert, oriented to person and oriented to place Speech: speech normal Psych affect normal Assessment & Plan Assessment/Plan (1) Hypertensive emergency: (2) CHF (congestive heart failure): PLAN: Plan 1. Acute hypoxic respiratory failure secondary to acute on chronic congestive heart failure with reduced ejection fraction-Limited echocardiogram was performed today, continue to monitor pulse ox and adjust oxygen if necessary #2 acute on chronic congestive heart failure with reduced ejection fraction- patient will be kept on IV Lasix for diuresis, patient will be seen in consultation by cardiology today for additional recommendations #3 acute kidney injury-patient's creatinine is still elevated, I suspect she has an element of chronic kidney disease but it has not been 90 days since she has been in the hospital last so I do not know if for renal function is stable at this time or declining. Continue to monitor labs, nephrology will be seeing the patient for further recommendations. #4 type 2 diabetes-blood sugars will be monitored, sliding scale insulin will be administered as needed #5 noncompliance with medical regimen-it is obvious the patient is noncompliant with following up with any healthcare providers, I do not actually know the reason for this. She will need close follow-up when she is discharged from the hospital, again the last time she was in the hospital she signed herself out AGAINST MEDICAL ADVICE. #5 hypertensive emergency-patient will remain on a nitroglycerin drip for blood pressure control, she may need additional agents added to bring her blood pressure under control. Await recommendations from cardiology #6 elevated troponin-this is probably secondary to demand ischemia, patient had no complaints to this examiner about any chest pain on admission or today Total clinical time spent by myself addressing patient's medical issues, reviewing all of her data, and collaborating with patient's care team: 35 minutes Charges/Coding Visit Charges Inpatient E&M: 12127 Subs Hosp L2
[2025-06-22] MEDS: Heparin Injection (Vial) 5,000 UNIT/ML VIAL 5000 UNIT SC ×2 (09:21→21:18)
--- NOTE | 2025-06-22 10:03 | PCM.CONS.C ---
Assessment & Plan Assessment/Plan (1) Acute on chronic combined systolic and diastolic ACC/AHA stage C congestive heart failure: PLAN: ? Unsure of etiology for exacerbation. Some concern for noncompliance with recommendations for treatment. ? At this point will restart patient back on hydralazine 50 mg 3 times daily as well as Imdur 30 mg daily. Continue carvedilol 12.5 mg twice daily. Discussion with nursing staff wean down and off nitroglycerin drip for systolic blood pressure less than 150 ? If renal function improves would prefer to have patient on RAAS inhibitor either utilizing ISABEL/ARB or Entresto. Also if renal function stabilizes would encourage utilization of SGLT2 full time staff interpreter. ? Echocardiogram completed. Will review ? Continue on Lasix drip at current rate for now. Monitor renal function and electrolytes. Goal potassium greater than 4.0 and magnesium greater than 2.0. Appreciate management of electrolytes by hospitalist team. ? Guarded long-term prognosis. Cardiology will follow. (2) NSTEMI (non-ST elevated myocardial infarction): PLAN: ? Patient with mildly elevated cardiac troponins. Overall stable to previous admissions. No reports of chest pain. ? Considered type II NSTEMI. No need for heparin drip and no plans for ischemic evaluation. Patient with a recent stress test negative for any ischemia. (3) Severe hypertension: PLAN: ? Patient with severe hypertension and very poorly controlled blood pressure at each admission. ? Blood pressure with significant improvement on nitroglycerin drip. As noted above adding hydralazine and Imdur with recommendations to wean down and off nitroglycerin drip for systolic blood pressure less than 150 ? Hopefully can establish adequate blood pressure control on p.o. medications prior to discharge. (4) Acute respiratory failure with hypoxemia: PLAN: ? Patient currently off BiPAP and on nasal cannula with good O2 saturation ? Wean O2 as tolerated. Further management per hospitalist team (5) Acute kidney failure: QUALIFIERS: Acute renal failure type: unspecified Qualified Code(s): N17.9 - Acute kidney failure, unspecified PLAN: ? Currently unsure if this is CKD versus acute on chronic kidney injury. Serum creatinine overall stable to previous admissions however renal function appeared to be normal earlier this year. ? Serum creatinine overall with slight improvement today compared to admission. ? As noted below recommend continuation of Lasix drip at current rate. Nephrology has been consulted appreciate help with management ? With history of CHF and diabetes patient would benefit from SGLT2 inhibitor however would recommend starting this as an outpatient once baseline serum creatinine has been established. (6) Severe anemia: PLAN: ? Hemoglobin down to 7.4 from admission of 9.4. Discussed with the patient she denies any active bleeding that she is aware of ? Further management per hospitalist team. Would recommend rechecking later today and maintaining goal hemoglobin greater than 7.0. (7) DM type 2 (diabetes mellitus, type 2): PLAN: ? Overall poor control. Previous hemoglobin A1c of 9.5. Goal hemoglobin A1c less than 7.0 ? Recommend maintaining blood glucose between 100?180 during admission. Further management per hospitalist team ? As noted above consideration for SGLT2 inhibitor once renal function has been established and stabilized. Likely initiate as outpatient or shortly prior to discharge. (8) Bilateral pleural effusion: PLAN: ? Chest x-ray personally reviewed and appears to be worse than previous admission 05/20/2025. ? Right effusion appears to be worse than left effusion. Can continue with IV diuretics however also consider consult to general surgery or IR in order to complete thoracentesis. This will possibly help with respiratory failure. (9) Noncompliance: PLAN: ? Patient with what appears to be a history of noncompliance. Initial admission 05/05/2025 patient ended up leaving AMA the following day ? She currently reports compliance with her medications however unable to directly prescribe the medications and how she is supposed to be taking them. ? As noted above guarded long-term prognosis. This was discussed with the patient as well as need for compliance with medications and treatment goals. Patient will also need to establish with a PCP, nephrology, and cardiology at discharge PLAN: Plan ? As noted above adjusting medications with addition of hydralazine and Imdur. Continue on IV diuretics with monitoring of renal function and electrolytes ? Maintain hemoglobin greater than 7.0. ? Await further recommendations from nephrology. It is possible that patient may be able to sustain better euvolemic status on Bumex therefore once off IV diuretics consider transitioning to p.o. Bumex. ? Cardiology will follow. HPI Consult Data Date of Consult: 06/22/25 HPI Narrative Reason for Consultation: Acute on chronic exacerbation of heart failure HPI Narrative: MINDY GILLILAND, is a 44 F with multiple comorbid conditions including but not limited to hypertension, hyperlipidemia, type 2 diabetes, BENNIE versus CKD, tobacco abuse, possible drug abuse, and chronic combined systolic and diastolic congestive heart failure along with mild to moderate valvular heart disease who presented to the emergency department due to progressive respiratory failure and shortness of breath. Review of notes as well as discussion with the patient [information from patient limited due to patient being a poor historian] and apparently patient was in respiratory distress requiring BiPAP to maintain O2 saturation. Patient with mildly elevated troponins as well as significantly elevated BNP as well as a chest x-ray with significant pulmonary edema and bilateral pleural effusions concerning for exacerbation of heart failure. It is noted that the patient has had multiple recent admissions including 2 admissions similar in May with last 1 being 05/20/2025. Each admission it appears that the patient gets diuresed and eventually discharged home. She reports that she did obtain her medications at discharge and apparently is taking them as prescribed however she could not detail the exact medications and how she is supposed to be taking them. Due to concern for CHF exacerbation cardiology has been consulted for help with management. It is noted that the patient is on both a nitroglycerin as well as Lasix drip with reports of good urine output per discussion with the nursing staff. Blood pressure has noted on previous admission severely elevated at time of admission however currently being maintained at a good level on the nitroglycerin drip. Discussed with the patient this morning and she reports that she feels significantly better with significant improvement of her shortness of breath. She is currently laying flat in the bed and denies any orthopnea currently with good O2 saturations on nasal cannula. Review of telemetry patient in sinus rhythm with no significant arrhythmias appreciated. It is noted that during previous admission patient had a stress test negative for any significant ischemia therefore considered likely nonischemic cardiomyopathy possibly due to drug abuse. Patient does report some abdominal and back pain but no other concerning cardiovascular plaints or issues specifically no chest pain, lightheadedness/dizziness, or other concerning complaints. ON LICENSE OF [facility] Medical History (Updated 06/22/25 @ 10:[address] Kamari Mariscal DO) Severe hypertension Acute HFrEF (heart failure with reduced ejection fraction) Elevated brain natriuretic peptide (BNP) level Elevated troponin Hypertension Acute kidney injury Substance abuse Wears dentures Wears glasses Anxiety Diabetes Kidney stones Anemia Back pain Injury of back Migraine headache Injury of head and neck Loss of consciousness Gastric reflux Smoker Leg cramps History of pain when walking History of edema Hx of hidradenitis suppurativa Personal history of Methicillin resistant Staphylococcus aureus infection Right axillary hidradenitis Arthritis Smoker DM type 2 (diabetes mellitus, type 2) Home Medications ?Medication ?Instructions ?Recorded ?Last Taken ?Type carvedilol 12.5 mg tablet 12.5 mg PO BIDCM blood pressure 05/21/25 Unknown Rx #60 tabs furosemide 20 mg tablet 60 mg (3 x 20 mg) PO DAILY water 05/21/25 Unknown Rx pill #90 tabs gabapentin 100 mg capsule 200 mg (2 x 100 mg) PO Q8H PRN PRN 05/21/25 Unknown Rx leg discomfort #180 caps hydralazine 25 mg tablet 50 mg (2 x 25 mg) PO TID blood 05/21/25 Unknown Rx pressure #180 tabs insulin glargine-yfgn 100 unit/mL 20 unit (0.2 mL) subcut DAILY 05/21/25 Unknown Rx (3 mL) subcutaneous pen diabetes #5 mL Allergy/AdvReac Type Severity Reaction Status Date / Time hydrocodone bitartrate (From AdvReac Vomiting Verified 06/21/25 16:47 Vicodin) hydromorphone HCl (From AdvReac Other Verified 06/21/25 16:47 Dilaudid) tramadol AdvReac Other Verified 06/21/25 16:47 Family History Other Diabetes Surgical History Hx of tooth extraction History of cystoscopy Hidradenitis Social History household members: none Smoking Status: Current every day smoker tobacco type: cigars second hand exposure: Yes alcohol intake: former substance use type: marijuana additional social history: Does Not Take Aspirin Does Take Ibuprofen As Needed ROS ROS Narrative 12 system reviewed and negative unless stated above. Physical Exam Const alert and no apparent distress Orientation / Consciousness: awake HEENT normocephalic HEENT Narrative: Poor dentition Eyes PERRL Neck Neck Narrative: Not able to appreciate any significant JVD however examination is difficult Carotids: normal carotid upstroke Resp normal respiratory effort Resp Narrative: Decreased breath sounds bilaterally with poor air movement. No wheezes, rales, or rhonchi Cardio regular rate and regular rhythm Cardio Narrative: Not able to appreciate any significant murmurs, rubs, or gallops. GI normal to inspection, nondistended, normoactive bowel sounds and non-tender Extremity Extremity Narrative: No clubbing or cyanosis. Trace bilateral lower extremity pitting edema Skin no rashes or lesions noted Neuro Neuro Narrative: Normal mood and affect Objective Data Vital Signs: Vital Signs Temp Pulse Resp BP Pulse Ox O2 Del Method O2 Flow Rate 98.9 F 96 14 139/76 H 96 Nasal Cannula 3 06/22/25 09:00 06/22/25 09:00 06/22/25 09:00 06/22/25 09:00 06/22/25 09:00 06/22/25 09:00 06/22/25 09:00 FiO2 30 06/21/25 22:00 Oxygen Flow Rate (L/min) 3 Oxygen Delivery Method Nasal Cannula Weight: 200 lb 9.93 oz Body Mass Index (BMI) 35.5 Intake & Output: Intake and Output for Last 24 Hours 06/20/25 06/21/25 06/22/25 23:59 23:59 23:59 Intake Total 177.40 / 193.15 837.43 / 837.43 Output Total 1185 / 1185 1200 / 1200 Balance -1007.60 / -991.85 -362.57 / -362.57 Lab / Micro Data Attestation: I reviewed the patient's lab results. Lab results narrative: Pertinent labs are discussed with the patient including drop in hemoglobin as well as slight improvement of renal function 06/22/25 04:17 06/22/25 04:17 Labs: Laboratory Results - last 24 hr 06/21/25 16:54: POC Glucose 301 H 06/21/25 17:05: WBC 10.1, RBC 3.35 L, Hgb 9.4 L, Hct 29.5 L, MCV 88.1, MCH 28.1, MCHC 31.9 L, RDW Std Deviation 42.6, RDW Coeff of Giselle 13.2, Plt Count 420, MPV 11.0, Immature Gran % (Auto) 0.400, Neut % (Auto) 75.1 H, Lymph % (Auto) 19.0, [place] % (Auto) 3.9, Eos % (Auto) 0.9, Baso % (Auto) 0.7, Absolute Neuts (auto) 7.6, Absolute Lymphs (auto) 1.92, Nucleated RBC % 0, Sodium 139, Potassium 4.4, Chloride 106, Carbon Dioxide 21.8, Anion Gap 12, BUN 32 H, Creatinine 3.03 H, Estim Creat Clear Calc 25.50 L, Est GFR (MDRD) Non-Af 19 L, BUN/Creatinine Ratio 10.5, Glucose 325 H, Calcium 7.8, Troponin T High Sens 195 H* D, [place] [address] H 06/21/25 19:15: Troponin T Hi Sens 2 Hr 206 H* 06/21/25 20:23: POC Glucose 248 H 06/21/25 21:05: Troponin T Hi Sens 4Hr 211 H* 06/21/25 23:49: POC Glucose 222 H 06/22/25 04:17: WBC 10.5, RBC 2.67 L, Hgb 7.4 L, Hct 23.2 L, MCV 86.9, MCH 27.7, MCHC 31.9 L, RDW Std Deviation 41.7, RDW Coeff of Giselle 13.1, Plt Count 218, MPV 11.1, Immature Gran % (Auto) 0.300, Neut % (Auto) 75.8 H, Lymph % (Auto) 15.4 L, [place] % (Auto) 7.5, Eos % (Auto) 0.4, Baso % (Auto) 0.6, Absolute Neuts (auto) 8.0 H, Absolute Lymphs (auto) 1.62, Nucleated RBC % 0, PT 13.8, INR 1.0, APTT 24.3, Sodium 140, Potassium 3.9, Chloride 106, Carbon Dioxide 22.1, Anion Gap 12, BUN 32 H, Creatinine 2.97 H, Estim Creat Clear Calc 25.62 L, Est GFR (MDRD) Non-Af 19 L, BUN/Creatinine Ratio 10.6, Glucose 182 H, Calcium 7.6 06/22/25 05:12: POC Glucose 159 H ABG Data ABG results: ABG 06/21/25 17:14 Specimen Type RODRIGUE Sample Site Not entered VBG pH 7.26 L VBG pO2 41 H VBG HCO3 24 VBG Total CO2 26 VBG O2 Sat (Calc) 67 VBG Base Excess -3 L POC Mix VBG pCO2 Pt Tmp 54.3 H O2 Delivery Device Not entered Rhythm Strip Rhythm Strip: Sinus Rhythm (Elevated heart rate with mostly sinus rhythm rates in the 90s. No other significant arrhythmias appreciated.) Cardiology Labs/Tests 06/21/25 17:05: WBC 10.1, RBC 3.35 L, Hgb 9.4 L, Hct 29.5 L, MCV 88.1, MCH 28.1, MCHC 31.9 L, Plt Count 420, MPV 11.0, Immature Gran % (Auto) 0.400, Neut % (Auto) 75.1 H, Lymph % (Auto) 19.0, [place] % (Auto) 3.9, Eos % (Auto) 0.9, Baso % (Auto) 0.7, Absolute Neuts (auto) 7.6, Nucleated RBC % 0, Sodium 139, Potassium 4.4, Chloride 106, Carbon Dioxide 21.8, Anion Gap 12, BUN 32 H, Creatinine 3.03 H, Est GFR (MDRD) Non-Af 19 L, BUN/Creatinine Ratio 10.5, Glucose 325 H, Calcium 7.8 06/21/25 17:14: VBG pH 7.26 L, VBG pO2 41 H, VBG HCO3 24, VBG O2 Sat (Calc) 67, VBG Base Excess -3 L 06/22/25 04:17: WBC 10.5, RBC 2.67 L, Hgb 7.4 L, Hct 23.2 L, MCV 86.9, MCH 27.7, MCHC 31.9 L, Plt Count 218, MPV 11.1, Immature Gran % (Auto) 0.300, Neut % (Auto) 75.8 H, Lymph % (Auto) 15.4 L, [place] % (Auto) 7.5, Eos % (Auto) 0.4, Baso % (Auto) 0.6, Absolute Neuts (auto) 8.0 H, Nucleated RBC % 0, PT 13.8, INR 1.0, APTT 24.3, Sodium 140, Potassium 3.9, Chloride 106, Carbon Dioxide 22.1, Anion Gap 12, BUN 32 H, Creatinine 2.97 H, Est GFR (MDRD) Non-Af 19 L, BUN/Creatinine Ratio 10.6, Glucose 182 H, Calcium 7.6 Rhythm: EKG: ECHO: Stress Test: Cardiac Cath: PCI: CT Surgery: Holter monitor: EPS: PPM: CXR: Chest CT Scan: Radiography Diagnostic Testing: Radiology Impression Chest X-Ray 06/21/25 17:08 IMPRESSION: Pulmonary findings as above. Reading [facility] Risk Score for UA/STEMI Assesmment (YES = 1) Risk Stratification Applicable: Yes Age > or = 65: No > or = 3 CAD risk factors (HTN, Hypercholesterolemia, Diabetes, family hx, current smoker): Yes Known CAD (Stenosis > or = 50%): No ASA used in past 7 days: No Severe angina (> or = 2 episodes in 24 hrs): No EKG ST change > or = 0.5mm: No Positive cardiac markers: Yes Score ZARA Risk Score of mortality/ recurrent ischemic event over the next 14 days: 2 = 8.3% - Low Risk
[2025-06-22] MEDS: Nitroglycerin Infusion 250 ML 87 MG CONT INF (10:06)
--- NOTE | 2025-06-22 10:14 | CASEMGMT ---
VISHAL NIXON Assessment: Face to Face with pt for initial transition planning/care coordination assessment. VISHAL NIXON introduced self and role at [facility], pt voices understanding and consents to assessment. Pt is A&O x4 and answers all questions appropriately at this time. Care providers, pharmacy, and demographics verified/updated. Strata: 2 Admitting Dx: acute exacerbation of congestive heart failure PCP: None, VISHAL NIXON scheduled an appt with [facility] last time patient was here, she did not go to it. Pt states She was in too much pain to go to the appointment. Pt states she intends to reschedule her appt. Specialists: None Preferred Pharmacy: [facility] Insurance: [employer] Prescription Benefit: yes LNOK: Brother, Sb; Sister, Miguelina Living Arrangements: Pt lives in the upstairs of a home with her father. She has 8-9 steps to enter. ADLs: Pt reports she is I at baseline. Transportation: Pt drives self and denies concerns with transportation. DME: Pt not compliant with medications, she is not checking her BS at home. Pt states she plans to get a new BGM, just hasn't done it yet. Pt previously left AMA. Pt does not use O2 at home, if Pt qualifies for O2 she chose [facility] as provider of choice. HHC/SNF: Pt states she has HHC through [facility]. Pt states no concerns with going home at time of dc. Denies wanting any HHC or therapy at time of DC. Pt does not have PCP at this time, states she intends to schedule an appt with [facility]. Pt states no further concerns/needs. CM to follow. Advised pt to ask CM if any further question/concerns/needs arise, voices understanding. Pt Goal: Home Plan: Home, Follow for safe DC. 6 clicks = 15. Nephrology and Cardiology consulted. Noel RODGERS CM
[2025-06-22] MEDS: TITRATION PARAMETER CHANGE 1 EACH IV ×2 (10:56→16:44)
[2025-06-22] MEDS: Nitroglycerin Infusion 250 ML 96 MG CONT INF (12:30)
--- NOTE | 2025-06-22 13:47 | PCM.CONS.R ---
Assessment & Plan Assessment/Plan (1) Acute kidney failure: QUALIFIERS: Acute renal failure type: unspecified Qualified Code(s): N17.9 - Acute kidney failure, unspecified (2) Chronic kidney disease: PLAN: Her creatinine has been around 2.6-2.8 last few months, likely this is her new baseline. Nephrotic range proteinuria. Poorly controlled diabetes and hypertension. Medication noncompliance, drug abuse. Presents with fluid overload, currently on Lasix drip. Continue, symptomatically she is better. I once again discussed the importance of medication compliance, avoiding drugs. Advised her to establish with a primary care physician to get medications on a regular basis. I have sent the serologies HPI Consult Data Date of Consult: 06/22/25 HPI Narrative Reason for Consultation: Renal failure HPI Narrative: MINDY GILLILAND, is a 44 F who presents to the hospital with shortness of breath. Nephrology on consultation and review of CKD, diabetes. She is known to us from previous admission. Somewhat noncompliant. She was initially seen in hospital few months ago, at that time she presented with shortness of breath. Was found to have massive proteinuria, microscopic hematuria. Echocardiogram showed severe left ventricular hypertrophy, decreased ejection fraction. Chronic diabetes, she was not taking any medications, poorly controlled, HbA1c consistently 10 or higher. Hypertension, noncompliance again, usually presents with hypertensive urgency and fluid overload. She says she does not have a primary care physician at this time. Most of her medications are from hospital discharge. History of drug use, previous urine toxicology positive for fentanyl, cannabinoids, amphetamine. Current urine toxicology positive for fentanyl. Extensive family history of autoimmune conditions including lupus, family history of renal failure. She herself was never diagnosed with lupus. We have sent serologies in the past, ANCA antibodies were negative. MARIANO, double-stranded DNA were not done due to collection deficiency. Presented with shortness of breath, currently on lasix drip. [facility] Medical History (Updated 06/22/25 @ 10:[address] Kamari Mariscal DO) Severe hypertension Acute HFrEF (heart failure with reduced ejection fraction) Elevated brain natriuretic peptide (BNP) level Elevated troponin Hypertension Acute kidney injury Substance abuse Wears dentures Wears glasses Anxiety Diabetes Kidney stones Anemia Back pain Injury of back Migraine headache Injury of head and neck Loss of consciousness Gastric reflux Smoker Leg cramps History of pain when walking History of edema Hx of hidradenitis suppurativa Personal history of Methicillin resistant Staphylococcus aureus infection Right axillary hidradenitis Arthritis Smoker DM type 2 (diabetes mellitus, type 2) Home Medications ?Medication ?Instructions ?Recorded ?Last Taken ?Type carvedilol 12.5 mg tablet 12.5 mg PO BIDCM blood pressure 05/21/25 Unknown Rx #60 tabs furosemide 20 mg tablet 60 mg (3 x 20 mg) PO DAILY water 05/21/25 Unknown Rx pill #90 tabs gabapentin 100 mg capsule 200 mg (2 x 100 mg) PO Q8H PRN PRN 05/21/25 Unknown Rx leg discomfort #180 caps hydralazine 25 mg tablet 50 mg (2 x 25 mg) PO TID blood 05/21/25 Unknown Rx pressure #180 tabs insulin glargine-yfgn 100 unit/mL 20 unit (0.2 mL) subcut DAILY 05/21/25 Unknown Rx (3 mL) subcutaneous pen diabetes #5 mL Allergy/AdvReac Type Severity Reaction Status Date / Time hydrocodone bitartrate (From AdvReac Vomiting Verified 06/21/25 16:47 Vicodin) hydromorphone HCl (From AdvReac Other Verified 06/21/25 16:47 Dilaudid) tramadol AdvReac Other Verified 06/21/25 16:47 Family History Other Diabetes Surgical History Hx of tooth extraction History of cystoscopy Hidradenitis Social History household members: none Smoking Status: Current every day smoker tobacco type: cigars second hand exposure: Yes alcohol intake: former substance use type: marijuana additional social history: Does Not Take Aspirin Does Take Ibuprofen As Needed ROS ROS Narrative negative except above Physical Exam Narrative no pallor no icterus no JVD s1s2 no murmurs lungs rales abdomen soft no organomegaly no edema no cyanosis Lab / Micro Data 06/22/25 04:17 06/22/25 04:17 Labs: Laboratory Results - last 24 hr 06/21/25 16:54: POC Glucose 301 H 06/21/25 17:05: WBC 10.1, RBC 3.35 L, Hgb 9.4 L, Hct 29.5 L, MCV 88.1, MCH 28.1, MCHC 31.9 L, RDW Std Deviation 42.6, RDW Coeff of Giselle 13.2, Plt Count 420, MPV 11.0, Immature Gran % (Auto) 0.400, Neut % (Auto) 75.1 H, Lymph % (Auto) 19.0, [place] % (Auto) 3.9, Eos % (Auto) 0.9, Baso % (Auto) 0.7, Absolute Neuts (auto) 7.6, Absolute Lymphs (auto) 1.92, Nucleated RBC % 0, Sodium 139, Potassium 4.4, Chloride 106, Carbon Dioxide 21.8, Anion Gap 12, BUN 32 H, Creatinine 3.03 H, Estim Creat Clear Calc 25.50 L, Est GFR (MDRD) Non-Af 19 L, BUN/Creatinine Ratio 10.5, Glucose 325 H, Calcium 7.8, Troponin T High Sens 195 H* D, [place] [address] H 06/21/25 19:15: Troponin T Hi Sens 2 Hr 206 H* 06/21/25 20:23: POC Glucose 248 H 06/21/25 21:05: Troponin T Hi Sens 4Hr 211 H* 06/21/25 23:49: POC Glucose 222 H 06/22/25 04:17: WBC 10.5, RBC 2.67 L, Hgb 7.4 L, Hct 23.2 L, MCV 86.9, MCH 27.7, MCHC 31.9 L, RDW Std Deviation 41.7, RDW Coeff of Giselle 13.1, Plt Count 218, MPV 11.1, Immature Gran % (Auto) 0.300, Neut % (Auto) 75.8 H, Lymph % (Auto) 15.4 L, [place] % (Auto) 7.5, Eos % (Auto) 0.4, Baso % (Auto) 0.6, Absolute Neuts (auto) 8.0 H, Absolute Lymphs (auto) 1.62, Nucleated RBC % 0, PT 13.8, INR 1.0, APTT 24.3, Sodium 140, Potassium 3.9, Chloride 106, Carbon Dioxide 22.1, Anion Gap 12, BUN 32 H, Creatinine 2.97 H, Estim Creat Clear Calc 25.62 L, Est GFR (MDRD) Non-Af 19 L, BUN/Creatinine Ratio 10.6, Glucose 182 H, Calcium 7.6 06/22/25 05:12: POC Glucose 159 H 06/22/25 11:38: POC Glucose 130 H ABG Data ABG results: ABG 06/21/25 17:14 Specimen Type RODRIGUE Sample Site Not entered VBG pH 7.26 L VBG pO2 41 H VBG HCO3 24 VBG Total CO2 26 VBG O2 Sat (Calc) 67 VBG Base Excess -3 L POC Mix VBG pCO2 Pt Tmp 54.3 H O2 Delivery Device Not entered Rhythm Strip Rhythm Strip: Sinus Rhythm (Elevated heart rate with mostly sinus rhythm rates in the 90s. No other significant arrhythmias appreciated.) Imaging Radiology Impression Chest X-Ray 06/21/25 17:08 IMPRESSION: Pulmonary findings as above. Reading Location: [facility] Echocardiogram 06/21/25 18:27 Interpretation Summary The estimated ejection fraction is 35-40% %. Normal LV size. Mild concentric left ventricular hypertrophy. Mild-Moderate (1-2+) mitral valve insufficiency. Right ventricular systolic pressure estimated to be 35-40 mmHg. mmHg. Mild pulmonary hypertension. IVC normal size with respiratory collapse. Compared to prior study, there is no significant change. Ordering Physician: Jl Clements Referring Physician: N/A Performed By: Mayran Herrmann RDCS
[2025-06-22] MEDS: Nitroglycerin Infusion 250 ML 60 MG CONT INF (16:43)
[2025-06-22] MEDS: Nitroglycerin Infusion 250 ML 54 MG CONT INF (21:56)
[2025-06-23] VITALS (43 sets, daily range): BP systolic 130–162; BP diastolic 56–126; PULSE 91–103; RESP 14–29; TEMP 36.3–37.5; O2SAT 97–100; BMI 36.2
[2025-06-23] MEDS: Nitroglycerin Infusion 250 ML 54 MG CONT INF ×2 (02:30→06:54)
[2025-06-23] MEDS: Furosemide 500 MG in Empty Viaflex 50 mL 1 EACH CONT INF (03:13)
[2025-06-23] MEDS: Heparin Injection (Vial) 5,000 UNIT/ML VIAL 5000 UNIT SC ×2 (07:53→20:56)
--- NOTE | 2025-06-23 09:39 | PCM.PN.CARD ---
Subjective Subjective Patient seen and examined currently sitting up in the bed eating breakfast denies any cardiovascular complaints or issues however does report continued abdominal and back pain. Overall hemodynamically stable however still requiring nitroglycerin drip to maintain good blood pressure control. Remains on Lasix drip with good urine output. Some improvement of edema noted and again patient reports improvement of shortness of breath. Long discussion with patient this morning and she does admit to continued heroin abuse. She states that she is self-medicating due to multiple orthopedic issues with chronic pain. Objective Data Vital Signs: Vital Signs Temp Pulse Resp BP Pulse Ox O2 Del Method O2 Flow Rate 98.9 F 98 18 147/88 H 97 Nasal Cannula 2 06/23/25 09:00 06/23/25 09:00 06/23/25 09:00 06/23/25 09:00 06/23/25 09:00 06/23/25 09:00 06/23/25 09:00 FiO2 30 06/23/25 04:30 Oxygen Flow Rate (L/min) 2 Oxygen Delivery Method Nasal Cannula Weight: 204 lb 9.423 oz Body Mass Index (BMI) 36.2 Intake & Output: Intake and Output for Last 24 Hours 06/21/25 06/22/25 06/23/25 23:59 23:59 23:59 Intake Total 177.40 / 193.15 1948.48 / 2002.48 553.00 / 553.00 Output Total 1185 / 1185 2225 / 2225 800 / 800 Balance -1007.60 / -991.85 -276.52 / -222.52 -247.00 / -247.00 Lab / Micro Data Attestation: I reviewed the patient's lab results. 06/22/25 04:17 06/22/25 04:17 Labs: Laboratory Results - last 24 hr 06/22/25 11:38: POC Glucose 130 H 06/22/25 16:31: POC Glucose 233 H 06/23/25 06:17: LISA-1 Antibody TNP, Scl-70 Scleroderma Ab TNP, Antichromatin Antibodies TNP, Centromere B Antibody TNP 06/23/25 07:51: POC Glucose 184 H Rhythm Strip Rhythm Strip: Sinus Rhythm (Sinus rhythm to mild sinus tachycardia with occasional ectopy. No other significant arrhythmias appreciated.) Cardiology Labs/Tests Rhythm: EKG: ECHO: Echocardiogram 06/22/2025 overall stable to previous: Moderately reduced ejection fraction estimated at 40% with mild to moderate valvular heart disease. Stress Test: Cardiac Cath: PCI: CT Surgery: Holter monitor: EPS: PPM: CXR: Chest CT Scan: Radiography Diagnostic Testing: Radiology Impression Echocardiogram 06/21/25 18:27 Interpretation Summary The estimated ejection fraction is 35-40% %. Normal LV size. Mild concentric left ventricular hypertrophy. Mild-Moderate (1-2+) mitral valve insufficiency. Right ventricular systolic pressure estimated to be 35-40 mmHg. mmHg. Mild pulmonary hypertension. IVC normal size with respiratory collapse. Compared to prior study, there is no significant change. Ordering Physician: Jl Clements Referring Physician: N/A Performed By: Maryan Herrmann RDCS Physical Exam Const alert, oriented x3 and no apparent distress Resp normal respiratory effort Resp Narrative: Decreased breath sounds. Not able to appreciate any significant wheezes, rales, or rhonchi Cardio regular rate, regular rhythm, no murmurs, no rub and no gallops GI normal to inspection, nondistended, normoactive bowel sounds and soft to palpation Extremity Extremity Narrative: Trace to 1+ bilateral lower extremity pitting edema Skin no rashes or lesions noted Neuro Neuro Narrative: Moves all extremities Psych Psych Narrative: Normal mood and affect Assessment & Plan Assessment/Plan (1) Acute on chronic combined systolic and diastolic ACC/AHA stage C congestive heart failure: PLAN: ? Improvement appreciated. Continues to tolerate Lasix drip. ? Will plan to likely transition to p.o. diuretics tomorrow. Continue current guideline directed medical therapy however increasing hydralazine to 100 mg 3 times daily and Imdur to 60 mg daily. ? Would appreciate further help with management from nephrology. If they are okay with starting on RAAS inhibitors or spironolactone this will also help with treatment of her CHF and better blood pressure control however can also worsen renal function. ? Guarded long-term prognosis. Again Long discussion with patient about need for cessation of drug abuse and need for compliance with treatment recommendations. ? Cardiology will follow (2) NSTEMI (non-ST elevated myocardial infarction): PLAN: ? Patient with mildly elevated cardiac troponins. Overall stable to previous admissions. No reports of chest pain. ? Considered type II NSTEMI. No need for heparin drip and no plans for ischemic evaluation. Patient with a recent stress test negative for any ischemia. (3) Severe hypertension: PLAN: ? Continued poor blood pressure control. ? As noted above increasing hydralazine and Imdur. Appreciate any further recommendations from nephrology regarding management strategies. ? It is possible that help with pain management will also improve blood pressure. Appreciate any further recommendation from hospitalist team. ? Goal blood pressure less than 130/80 however if able to maintain blood pressure less than 160/100 then continue to wean down and off nitroglycerin drip. Discussion with nursing staff. (4) Acute respiratory failure with hypoxemia: PLAN: ? Overall stable on nasal cannula. ? Wean O2 as tolerated. Further management per hospitalist team (5) Acute kidney failure: QUALIFIERS: Acute renal failure type: unspecified Qualified Code(s): N17.9 - Acute kidney failure, unspecified PLAN: ? Recommend daily labs for monitoring of her renal function and electrolytes. Recommend continuation of Lasix drip ? Appreciate any further recommendation from nephrology. (6) Severe anemia: PLAN: ? No new labs today. Patient does report some abdominal pain with drop in hemoglobin consider possible GI bleed ? As noted previously recommend maintaining hemoglobin greater than 7.0. Appreciate help with management by hospitalist team. (7) DM type 2 (diabetes mellitus, type 2): PLAN: ? Overall poor control. Previous hemoglobin A1c of 9.5. Goal hemoglobin A1c less than 7.0 ? Recommend maintaining blood glucose between 100?180 during admission. Further management per hospitalist team ? As noted above consideration for SGLT2 inhibitor once renal function has been established and stabilized. Likely initiate as outpatient or shortly prior to discharge. (8) Bilateral pleural effusion: PLAN: ? Chest x-ray personally reviewed and appears to be worse than previous admission 05/20/2025. ? Right effusion appears to be worse than left effusion. Can continue with IV diuretics however also consider consult to general surgery or IR in order to complete thoracentesis. This will possibly help with respiratory failure. (9) Noncompliance: PLAN: ? Patient noncompliant with follow-up as well as medication/treatment recommendations ? Long discussion about need for follow-up and compliance with medications. Also cessation of drug abuse. PLAN: Plan ? As noted above increasing hydralazine and Imdur. Attempting to wean down and off nitroglycerin drip ? Continue IV Lasix drip for now with monitoring of renal function and electrolytes. ? Hopefully transition to p.o. diuretics tomorrow ? Cardiology will follow. Charges/Coding Visit Charges Inpatient E&M: 15188 Subs Hosp L3
[2025-06-23 10:13] LABS: Anion Gap 10 (7-18); BUN 31 mg/dL (4-19); BUN/Creat Ratio 9.9 RATIO (10-20); Calcium,Total 7.2 mg/dL (7.6-11.0); Carbon Dioxide 23.6 mmol/L (20.0-29.0); Chloride 103 mmol/L (96-106); Estimated Creatinine Clearance 24.41 ml/min (50-250); Glucose 217 mg/dL (70-99); Potassium 3.9 mmol/L (3.5-5.1)
--- NOTE | 2025-06-23 10:38 | CT_ITS ---
PROCEDURE: ABDOMEN/PELVIS WITHOUT CONT 06/23/2025 REASON FOR EXAM: ABDOMINAL PAIN TECHNIQUE: Procedure Code: CTABDPEL Modality: CT Procedure: ABDOMEN/PELVIS WITHOUT CONT Contiguous axial scans of 2.5 mm slice thicknesses. Sagittal and coronal reconstruction images were obtained. One or more dose reduction techniques were used (e.g., automated exposure control, adjustment of mA and/or kv according to patient size, use of iterative reconstruction technique). One or more dose reduction techniques were used (e.g., Automated exposure control, adjustment of the mA and/or kV according to patient size, use of iterative reconstruction technique). RADIATION DOSE SUMMARY: DLP: 1121.28 mGycm COMPARISON: Ultrasound dated 05/05/2025. FINDINGS: Lung bases: Bilateral pleural effusions. Airspace consolidation in the bilateral lungs Liver: Normal-size and attenuation. No masses. No biliary ductal dilatation. Gallbladder: No gallstones. No wall thickening or pericholecystic edema. Spleen: Normal in size and attenuation.. Pancreas: No masses or ductal dilatation. Adrenals: No nodules are gland thickening. Kidneys: Symmetrical excretion of contrast. No masses. No calcifications. Normal-size. Bladder: Marquez catheter. Reproductive Organs: Unremarkable. Bowel: No evidence of obstruction. Colon diverticulosis. Appendix: Unremarkable. Lymph nodes: No suspicious lymphadenopathy. Vasculature: Unremarkable. Peritoneum / Retroperitoneum: Mild ascites. Anterior abdominal wall: Severe anasarca. Bones: No osseous abnormalities. CT/Abdomen/Pelvis without Cont IMPRESSION: Severe anasarca. Bilateral pleural effusions. Bilateral airspace consolidation. Can not exclude pneumonia. Colon diverticulosis. Marquez catheter. Mild ascites. Reading Location: [place] [address]
[2025-06-23] MEDS: NIFEdipine 60 MG Tablet PO (13:12)
--- NOTE | 2025-06-23 13:52 | PN.RENAL_ITS ---
Subjective Subjective Looks somewhat better. Saturating okay on nasal cannula. Urine output is okay. Blood pressure better. Remains on Lasix drip. Asking about going home already. Objective Data Objective Data Vital Signs: Vital Signs Temp Pulse Resp BP Pulse Ox O2 Del Method O2 Flow Rate 99.1 F 91 16 131/73 H 98 Nasal Cannula 2 06/23/25 12:00 06/23/25 13:30 06/23/25 13:00 06/23/25 13:30 06/23/25 13:00 06/23/25 13:00 06/23/25 13:00 FiO2 30 06/23/25 04:30 Oxygen Flow Rate (L/min) 2 Oxygen Delivery Method Nasal Cannula Weight: 92.8 kg Body Mass Index (BMI) 36.2 Intake & Output: Intake and Output for Last 24 Hours 06/21/25 06/22/25 06/23/25 23:59 23:59 23:59 Intake Total 177.40 / 193.15 1948.48 / 2002.48 644.00 / 644.00 Output Total 1185 / 1185 2225 / 2225 1800 / 1800 Balance -1007.60 / -991.85 -276.52 / -222.52 -1156.00 / -1156.00 Lab / Micro Data 06/22/25 04:17 06/23/25 09:45 Labs: Laboratory Results - last 24 hr 06/22/25 16:31: POC Glucose 233 H 06/23/25 06:17: LISA-1 Antibody TNP, Scl-70 Scleroderma Ab TNP, Antichromatin Antibodies TNP, Centromere B Antibody TNP 06/23/25 07:51: POC Glucose 184 H 06/23/25 09:45: Sodium 137, Potassium 3.9, Chloride 103, Carbon Dioxide 23.6, Anion Gap 10, BUN 31 H, Creatinine 3.15 H, Estim Creat Clear Calc 24.41 L, Est GFR (MDRD) Non-Af 18 L, BUN/Creatinine Ratio 9.9 L, Glucose 217 H, Calcium 7.2 L 06/23/25 11:27: POC Glucose 169 H Radiography Diagnostic Testing: Radiology Impression Abdomen/Pelvis CT 06/23/25 10:38 IMPRESSION: Severe anasarca. Bilateral pleural effusions. Bilateral airspace consolidation. Can not exclude pneumonia. Colon diverticulosis. Marquez catheter. Mild ascites. Reading Location: [place] [address] Rhythm Strip Rhythm Strip: Sinus Rhythm (Sinus rhythm to mild sinus tachycardia with occasional ectopy. No other significant arrhythmias appreciated.) Physical Exam Narrative no pallor no icterus no JVD s1s2 no murmurs lungs rales abdomen soft no organomegaly no edema no cyanosis Assessment & Plan Assessment/Plan (1) Acute kidney failure: QUALIFIERS: Acute renal failure type: unspecified Qualified Code(s): N17.9 - Acute kidney failure, unspecified (2) Chronic kidney disease: PLAN: Her creatinine has been around 2.6-2.8 last few months, likely this is her new baseline. Nephrotic range proteinuria. Poorly controlled diabetes and hypertension. Medication noncompliance, drug abuse. Presents with fluid overload, currently on Lasix drip. Continue, symptomatically she is better. I once again discussed the importance of medication compliance, avoiding drugs. Advised her to establish with a primary care physician to get medications on a regular basis. I have sent the serologies 06/23/2025. Creatinine about the same. This is likely new baseline. Discussed with hospitalist. Add nifedipine for hypertension. Currently on Lasix drip, at the time of discharge, likely sent home on Lasix 80 mg twice a day. For nephrotic range proteinuria, I have sent rest of the serologies, this will take some time to come back. Urine toxicology results noted. Once again I discussed with her about the importance of establishing with a primary care physician and following up in the office. She says she will do that this time.
--- NOTE | 2025-06-23 19:05 | PN.HOSP_ITS ---
Reason for Visit Chief Complaint: Shortness of breath Subjective Subjective Patient was seen and examined today, she continues to complain of feeling full in her abdomen, I ordered a CT of the abdomen and pelvis which showed some ascites and anasarca. Patient is currently on 2 L of oxygen but has a pulse ox of 100%. I talked briefly with nephrology today and cardiology, patient was initially placed on Procardia for blood pressure control but cardiology does not want to use a calcium channel daiana due to her cardiomyopathy. They requested I discontinue the Procardia which I did. Patient appeared stable for transfer to PCU for further care. Objective Data Objective Data Vital Signs: Vital Signs Temp Pulse Resp BP Pulse Ox O2 Del Method O2 Flow Rate 99.1 F 97 16 150/88 H 100 Nasal Cannula 2 06/23/25 12:00 06/23/25 15:50 06/23/25 13:00 06/23/25 15:50 06/23/25 15:15 06/23/25 13:00 06/23/25 15:15 FiO2 30 06/23/25 04:30 Oxygen Flow Rate (L/min) 2 Oxygen Delivery Method Nasal Cannula Weight: 92.8 kg Body Mass Index (BMI) 36.2 Intake & Output: Intake and Output for Last 24 Hours 06/21/25 06/22/25 06/23/25 23:59 23:59 23:59 Intake Total 177.40 / 193.15 1948.48 / 2002.48 944.00 / 944.00 Output Total 1185 / 1185 2225 / 2225 1800 / 1800 Balance -1007.60 / -991.85 -276.52 / -222.52 -856.00 / -856.00 Lab / Micro Data 06/24/25 04:28 06/24/25 04:28 Labs: Laboratory Results - last 24 hr 06/23/25 06:17: LISA-1 Antibody TNP, Scl-70 Scleroderma Ab TNP, Antichromatin Antibodies TNP, Centromere B Antibody TNP 06/23/25 07:51: POC Glucose 184 H 06/23/25 09:45: Sodium 137, Potassium 3.9, Chloride 103, Carbon Dioxide 23.6, Anion Gap 10, BUN 31 H, Creatinine 3.15 H, Estim Creat Clear Calc 24.41 L, Est GFR (MDRD) Non-Af 18 L, BUN/Creatinine Ratio 9.9 L, Glucose 217 H, Calcium 7.2 L 06/23/25 11:27: POC Glucose 169 H 06/23/25 15:52: POC Glucose 151 H 06/23/25 16:13: POC Glucose 157 H Radiography Diagnostic Testing: Radiology Impression Venous Doppler Study 06/22/25 07:45 Interpretation Summary Deep veins of the bilateral lower extremities are patent and compressible segmentally. There is no evidence of bilateral lower extremity deep vein thrombosis. The bilateral great saphenous veins appear patent and compressible segmentally. Ordering Physician: Jl Clements Performed By: Parisa Yanez T Abdomen/Pelvis CT 06/23/25 10:38 IMPRESSION: Severe anasarca. Bilateral pleural effusions. Bilateral airspace consolidation. Can not exclude pneumonia. Colon diverticulosis. Marquez catheter. Mild ascites. Reading Location: [place] [address] Rhythm Strip Rhythm Strip: Sinus Rhythm (Sinus rhythm to mild sinus tachycardia with occasional ectopy. No other significant arrhythmias appreciated.) Physical Exam Narrative alert and no apparent distress General Appearance: cooperative, well kempt and well developed Orientation / Consciousness: awake, oriented to person and oriented to place HEENT normocephalic, head/scalp atraumatic and moist oral mucous membranes Eyes PERRL, EOMs intact bilaterally and conjunctivae normal Neck supple, no JVD, thyroid normal and no carotid bruits General: trachea midline Resp normal respiratory effort, no retractions, no use of accessory muscles and clear to auscultation bilaterally Auscultation: Negative for rales, rhonchi or wheezes Cardio regular rate, regular rhythm, S1 normal heart sound, S2 normal heart sound, no murmurs, no rub and no gallops GI normal to inspection, nondistended, normoactive bowel sounds, soft to palpation, non-tender and non-distended Extremity Extremity Narrative: Generalized truncal edema and leg edema as noted Skin no rashes or lesions noted General Skin Exam: no breakdown Neuro CN's II-XII intact bilaterally, no focal motor deficits and no sensory deficits noted Sensorium / Orientation: awake, alert, oriented to person and oriented to place Speech: speech normal Psych affect normal Assessment & Plan Assessment/Plan (1) CHF (congestive heart failure): (2) Hypertensive emergency: PLAN: Plan 1. Acute hypoxic respiratory failure secondary to acute on chronic congestive heart failure with reduced ejection fraction #2 acute on chronic congestive heart failure with reduced ejection fraction- patient will be kept on IV Lasix for diuresis, cardiology is participating in her care #3 acute kidney injury-patient's creatinine is still elevated, I suspect she has an element of chronic kidney disease but it has not been 90 days since she has been in the hospital last so I do not know if for renal function is stable at this time or declining. Continue to monitor labs, nephrology is seeing patient #4 type 2 diabetes-blood sugars will be monitored, sliding scale insulin will be administered as needed #5 noncompliance with medical regimen-it is obvious the patient is noncompliant with following up with any healthcare providers, I do not actually know the reason for this. She will need close follow-up when she is discharged from the hospital, again the last time she was in the hospital she signed herself out AGAINST MEDICAL ADVICE. #5 hypertensive emergency-I placed the patient on Procardia today initially and her blood pressure was improved however after discussion with cardiology, they requested this medication be stopped, patient's blood pressure will be monitored, in the end it may be necessary to place the patient on a calcium channel daiana however if she does not respond to other blood pressure medications. #6 elevated troponin-this is probably secondary to demand ischemia, patient had no complaints to this examiner about any chest pain on admission #7 anasarca secondary to noncompliance with home medications and nonischemic cardiomyopathy #8 nonischemic cardiomyopathy-etiology unclear, patient had a stress test during her last hospital admission in May of this year which was negative for reversible ischemia, it appears that her cardiomyopathy is nonischemic in nature. Total clinical time spent by myself addressing patient's medical issues, reviewing all of her data, and collaborating with patient's care team: 35 minutes Charges/Coding Visit Charges Inpatient E&M: 22254 Subs Hosp L2
--- NOTE | 2025-06-23 20:37 | EKG12_ITS ---
Test Reason : CP Blood Pressure : */* mmHG Vent. Rate : 100 BPM Atrial Rate : 100 BPM P-R Int : 120 ms QRS Dur : 78 ms QT Int : 308 ms P-R-T Axes : 33 67 113 degrees QTcB Int : 397 ms Normal sinus rhythm Low voltage QRS Nonspecific T wave abnormality Abnormal ECG When compared with ECG of 21-Jun-2025 16:52, MANUAL COMPARISON REQUIRED DATA IS UNCONFIRMED Confirmed by Kamari Mariscal ([id number]), rewrite editor ROMELIA GANNON ([id number]) on 06/26/2025 8:27:41 AM Referred By: ARIK Confirmed By: Kamari Mariscal
[2025-06-23] MEDS: 0.9% Saline Lock 10 ML Syringe IV (20:51)
--- NOTE | 2025-06-23 20:59 | PCM.HOSP.N ---
Hospitalist Note Pt reporting nondescript CP and some anxiety, I added famotidine 20mg PO bid for GI concerns and hydroxyzine 50mg PO x1. EKG obtained demonstrated low voltage NSR, non-STEMI.
--- NOTE | 2025-06-23 22:04 | PCM.HOSP.N ---
Hospitalist Note Pt c/o leg cramps for which she self-medicates with heroin while at home. She is unclear on how much heroin she uses, or the route she chooses to use. Nrsg is to ask her how she uses and how much. СЕРГЕЙ ordered. Pt reports to nrsg that she snorts heroin about twice a month and that she doesn't use much. I don't feel that scheduled opioid withdrawal medications are appropriate at this time. Will continue to assess.
[2025-06-23] MEDS: hydrOXYzine PAM 25 MG Capsule 50 MG PO (22:17)
[2025-06-24] VITALS (9 sets, daily range): BP systolic 126–150; BP diastolic 72–82; PULSE 92–100; RESP 14–29; TEMP 36.6–37.4; O2SAT 95–100; BMI 35.6
[2025-06-24] MEDS: 0.9% Saline Lock 10 ML Syringe IV (05:53)
[2025-06-24 06:15] LABS: Anion Gap 10 (7-18); BUN 33 mg/dL (4-19); BUN/Creat Ratio 11.1 RATIO (10-20); Calcium,Total 7.2 mg/dL (7.6-11.0); Carbon Dioxide 23.3 mmol/L (20.0-29.0); Chloride 104 mmol/L (96-106); Estimated Creatinine Clearance 25.76 ml/min (50-250); Glucose 120 mg/dL (70-99); Potassium 3.2 mmol/L (3.5-5.1)
[2025-06-24 08:32] LABS: Hematocrit 25.5 % (37-47); Hemoglobin 8.2 g/dL (12.0-15.0); Immature Granulocytes Count 0.010 X10^3/uL (0.0-0.0); Mean Corp Hgb Conc 32.2 g/dL (32-36); Mean Corpuscular Volume 85.9 fL (81-99); Mean Platelet Vol. 11.1 fl (6.2-12.0); NRBC Flagged by Analyzer 0 % (0-5); Platelet Count 333 K/mm3 (150-450); RBC Distribution Width CV 13.2 % (11.6-14.6); RBC Distribution Width SD 41.1 fl (35.1-43.9); Red Blood Count 2.97 M/mm3 (4.2-5.4); White Blood Count 7.2 K/mm3 (4.4-11.0)
[2025-06-24] MEDS: Heparin Injection (Vial) 5,000 UNIT/ML VIAL 5000 UNIT SC (08:36)
--- NOTE | 2025-06-24 10:11 | PCM.PN.CARD ---
Subjective Subjective Patient seen and examined has been moved from the ICU to PCU. Overall hemodynamically stable and has been titrated off nitroglycerin drip. Remains on IV Lasix drip and renal function overall appears to be improved some. She reports her breathing is continued to do well and also some improvement of her abdominal pain. No other concerning cardiovascular complaints or issues. Objective Data Vital Signs: Vital Signs Temp Pulse Resp BP Pulse Ox O2 Del Method O2 Flow Rate 99.3 F H 100 18 134/77 H 95 Nasal Cannula 2 06/24/25 08:35 06/24/25 08:35 06/24/25 08:35 06/24/25 08:35 06/24/25 08:35 06/24/25 08:35 06/24/25 08:35 FiO2 30 06/24/25 01:56 Oxygen Flow Rate (L/min) 2 Oxygen Delivery Method Nasal Cannula Weight: 201 lb 8.04 oz Body Mass Index (BMI) 35.6 Intake & Output: Intake and Output for Last 24 Hours 06/22/25 06/23/25 06/24/25 23:59 23:59 23:59 Intake Total 1948.48 / 2002.48 1294.00 / 1294.00 240 / 240 Output Total 2225 / 2225 4250 / 4250 1550 / 1550 Balance -276.52 / -222.52 -2956.00 / -2956.00 -1310 / -1310 Lab / Micro Data Attestation: I reviewed the patient's lab results. Lab results narrative: Labs reviewed and pertinent results discussed with the patient 06/24/25 04:28 06/24/25 04:28 Labs: Laboratory Results - last 24 hr 06/23/25 06:17: Complement C3 119, Complement C4 46 H 06/23/25 09:45: Sodium 137, Potassium 3.9, Chloride 103, Carbon Dioxide 23.6, Anion Gap 10, BUN 31 H, Creatinine 3.15 H, Estim Creat Clear Calc 24.41 L, Est GFR (MDRD) Non-Af 18 L, BUN/Creatinine Ratio 9.9 L, Glucose 217 H, Calcium 7.2 L 06/23/25 11:27: POC Glucose 169 H 06/23/25 15:52: POC Glucose 151 H 06/23/25 16:13: POC Glucose 157 H 06/23/25 22:09: POC Glucose 168 H 06/24/25 04:28: WBC 7.2, RBC 2.97 L, Hgb 8.2 L, Hct 25.5 L, MCV 85.9, MCH 27.6, MCHC 32.2, RDW Std Deviation 41.1, RDW Coeff of Giselle 13.2, Plt Count 333, MPV 11.1, Immature Gran % (Auto) 0.100, Neut % (Auto) 62.3, Lymph % (Auto) 23.9, [place] % (Auto) 9.1, Eos % (Auto) 3.9, Baso % (Auto) 0.7, Absolute Neuts (auto) 4.5, Absolute Lymphs (auto) 1.71, Nucleated RBC % 0, Sodium 137, Potassium 3.2 L, Chloride 104, Carbon Dioxide 23.3, Anion Gap 10, BUN 33 H, Creatinine 2.96 H, Estim Creat Clear Calc 25.76 L, Est GFR (MDRD) Non-Af 19 L, BUN/Creatinine Ratio 11.1, Glucose 120 H, Calcium 7.2 L 06/24/25 06:31: POC Glucose 155 H Rhythm Strip Rhythm Strip: Sinus Rhythm (Sinus rhythm to mild sinus tachycardia with occasional ectopy. No other significant arrhythmias appreciated.) Cardiology Labs/Tests 06/23/25 09:45: Sodium 137, Potassium 3.9, Chloride 103, Carbon Dioxide 23.6, Anion Gap 10, BUN 31 H, Creatinine 3.15 H, Est GFR (MDRD) Non-Af 18 L, BUN/Creatinine Ratio 9.9 L, Glucose 217 H, Calcium 7.2 L 06/24/25 04:28: WBC 7.2, RBC 2.97 L, Hgb 8.2 L, Hct 25.5 L, MCV 85.9, MCH 27.6, MCHC 32.2, Plt Count 333, MPV 11.1, Immature Gran % (Auto) 0.100, Neut % (Auto) 62.3, Lymph % (Auto) 23.9, [place] % (Auto) 9.1, Eos % (Auto) 3.9, Baso % (Auto) 0.7, Absolute Neuts (auto) 4.5, Nucleated RBC % 0, Sodium 137, Potassium 3.2 L, Chloride 104, Carbon Dioxide 23.3, Anion Gap 10, BUN 33 H, Creatinine 2.96 H, Est GFR (MDRD) Non-Af 19 L, BUN/Creatinine Ratio 11.1, Glucose 120 H, Calcium 7.2 L Rhythm: EKG: ECHO: Stress Test: Cardiac Cath: PCI: CT Surgery: Holter monitor: EPS: PPM: CXR: Chest CT Scan: Radiography Diagnostic Testing: Radiology Impression Venous Doppler Study 06/22/25 07:45 Interpretation Summary Deep veins of the bilateral lower extremities are patent and compressible segmentally. There is no evidence of bilateral lower extremity deep vein thrombosis. The bilateral great saphenous veins appear patent and compressible segmentally. Ordering Physician: Jl Clements Performed By: Parisa Yanez RVT Abdomen/Pelvis CT 06/23/25 10:38 IMPRESSION: Severe anasarca. Bilateral pleural effusions. Bilateral airspace consolidation. Can not exclude pneumonia. Colon diverticulosis. Marquez catheter. Mild ascites. Reading Location: [place] [id number] Physical Exam Const alert, oriented x3 and no apparent distress Resp normal respiratory effort Resp Narrative: Decreased breath sounds with no wheezes, rales, or rhonchi Cardio regular rate, regular rhythm, no murmurs, no rub and no gallops GI normal to inspection, nondistended, normoactive bowel sounds and soft to palpation Extremity Extremity Narrative: Trace bilateral lower extremity pitting edema Neuro Neuro Narrative: Moves all extremities Psych Psych Narrative: Normal mood and affect Assessment & Plan Assessment/Plan (1) Acute on chronic combined systolic and diastolic ACC/AHA stage C congestive heart failure: PLAN: ? Improvement appreciated. Continues to tolerate Lasix drip. ? Will plan to likely transition to p.o. diuretics tomorrow. Continue current guideline directed medical therapy with hydralazine to 100 mg 3 times daily and Imdur to 60 mg daily. ? Guarded long-term prognosis. Again Long discussion with patient about need for cessation of drug abuse and need for compliance with treatment recommendations. ? Cardiology will follow (2) NSTEMI (non-ST elevated myocardial infarction): PLAN: ? Patient with mildly elevated cardiac troponins. Overall stable to previous admissions. No reports of chest pain. ? Considered type II NSTEMI. No need for heparin drip and no plans for ischemic evaluation. Patient with a recent stress test negative for any ischemia. (3) Severe hypertension: PLAN: ? Blood pressure has improved with current medication regimen. Continue hydralazine and Imdur at current dose. ? If blood pressure becomes an issue again then likely will need to initiate on calcium channel daiana. Amlodipine 5 or 10 mg daily. ? Goal blood pressure less than 130/80 (4) Acute respiratory failure with hypoxemia: PLAN: ? Overall stable on nasal cannula. ? Wean O2 as tolerated. Further management per hospitalist team (5) Acute kidney failure: QUALIFIERS: Acute renal failure type: unspecified Qualified Code(s): N17.9 - Acute kidney failure, unspecified PLAN: ? Serum creatinine overall with mild improvement today. ? Recommend continuation of current medications. Further management per nephrology (6) Severe anemia: PLAN: ? Hemoglobin with improvement noted to be 8.2 today. Up from 7.4. No reports of bleeding. ? Recommend maintaining hemoglobin greater than 7.0. Appreciate help with management by hospitalist team. (7) DM type 2 (diabetes mellitus, type 2): PLAN: ? Overall poor control. Previous hemoglobin A1c of 9.5. Goal hemoglobin A1c less than 7.0 ? Recommend maintaining blood glucose between 100?180 during admission. Further management per hospitalist team ? Consideration for SGLT2 inhibitor once renal function has been established and stabilized. Likely initiate as outpatient. (8) Bilateral pleural effusion: PLAN: ? Continue diuresis with monitoring (9) Noncompliance: PLAN: ? Patient noncompliant with follow-up as well as medication/treatment recommendations ? Long discussion about need for follow-up and compliance with medications. Also cessation of drug abuse. PLAN: Plan ? Continue with IV diuretics close monitoring of renal function and electrolytes. Goal potassium greater than 4.0 and magnesium greater than 2.0 ? Possibly transition to p.o. diuretics tomorrow. Hopefully can consider discharge in the next 24 to 48 hours. Guarded long-term prognosis. Very high risk for readmissions. Charges/Coding Visit Charges Inpatient E&M: 20480 Subs Hosp L3
--- NOTE | 2025-06-24 12:53 | PCM.PN.REN ---
Subjective Subjective Follow-up on acute kidney injury on advanced CKD. She reports no events overnight, feels fair Objective Data Objective Data Vital Signs: Vital Signs Temp Pulse Resp BP Pulse Ox O2 Del Method O2 Flow Rate 99.3 F H 100 18 134/77 H 100 Nasal Cannula 2 06/24/25 08:35 06/24/25 08:35 06/24/25 08:35 06/24/25 08:35 06/24/25 11:20 06/24/25 08:35 06/24/25 11:20 FiO2 30 06/24/25 01:56 Oxygen Flow Rate (L/min) 2 Oxygen Delivery Method Nasal Cannula Weight: 91.4 kg Body Mass Index (BMI) 35.6 Intake & Output: Intake and Output for Last 24 Hours 06/22/25 06/23/25 06/24/25 23:59 23:59 23:59 Intake Total 1948.48 / 2002.48 1294.00 / 1294.00 462 / 462 Output Total 2225 / 2225 4250 / 4250 1550 / 1550 Balance -276.52 / -222.52 -2956.00 / -2956.00 -1088 / -1088 Lab / Micro Data Attestation: I reviewed the patient's lab results. 06/24/25 04:28 06/24/25 04:28 Labs: Laboratory Results - last 24 hr 06/23/25 06:17: Complement C3 119, Complement C4 46 H 06/23/25 15:52: POC Glucose 151 H 06/23/25 16:13: POC Glucose 157 H 06/23/25 22:09: POC Glucose 168 H 06/24/25 04:28: WBC 7.2, RBC 2.97 L, Hgb 8.2 L, Hct 25.5 L, MCV 85.9, MCH 27.6, MCHC 32.2, RDW Std Deviation 41.1, RDW Coeff of Giselle 13.2, Plt Count 333, MPV 11.1, Immature Gran % (Auto) 0.100, Neut % (Auto) 62.3, Lymph % (Auto) 23.9, [place] % (Auto) 9.1, Eos % (Auto) 3.9, Baso % (Auto) 0.7, Absolute Neuts (auto) 4.5, Absolute Lymphs (auto) 1.71, Nucleated RBC % 0, Sodium 137, Potassium 3.2 L, Chloride 104, Carbon Dioxide 23.3, Anion Gap 10, BUN 33 H, Creatinine 2.96 H, Estim Creat Clear Calc 25.76 L, Est GFR (MDRD) Non-Af 19 L, BUN/Creatinine Ratio 11.1, Glucose 120 H, Calcium 7.2 L 06/24/25 06:31: POC Glucose 155 H 06/24/25 10:57: POC Glucose 159 H Radiography Diagnostic Testing: Radiology Impression Venous Doppler Study 06/22/25 07:45 Interpretation Summary Deep veins of the bilateral lower extremities are patent and compressible segmentally. There is no evidence of bilateral lower extremity deep vein thrombosis. The bilateral great saphenous veins appear patent and compressible segmentally. Ordering Physician: Jl Clements Performed By: Parisa Yanez RVT Rhythm Strip Rhythm Strip: Sinus Rhythm (Sinus rhythm to mild sinus tachycardia with occasional ectopy. No other significant arrhythmias appreciated.) Physical Exam Const alert, oriented x3 and no apparent distress Orientation / Consciousness: oriented to person, oriented to place and oriented to time HEENT normocephalic Head and Scalp: atraumatic Resp no use of accessory muscles Auscultation: wheezes and diminished lung sounds Cardio Cardio Narrative: Distant heart tones GI non-tender Auscultation: normoactive bowel sounds Palpation: soft Skin no rashes or lesions noted Psych cooperative Assessment & Plan Assessment/Plan (1) Acute kidney failure: QUALIFIERS: Acute renal failure type: unspecified Qualified Code(s): N17.9 - Acute kidney failure, unspecified PLAN: (1) Acute kidney failure: QUALIFIERS: Acute renal failure type: unspecified Qualified Code(s): N17.9 - Acute kidney failure, unspecified (2) Chronic kidney disease: PLAN: Her creatinine has been around 2.6-2.8 last few months, likely this is her new baseline. Nephrotic range proteinuria. Poorly controlled diabetes and hypertension. Medication noncompliance, drug abuse. Presents with fluid overload, currently on Lasix drip. Continue, symptomatically she is better. I once again discussed the importance of medication compliance, avoiding drugs. Advised her to establish with a primary care physician to get medications on a regular basis. I have sent the serologies 06/23/2025. Creatinine about the same. This is likely new baseline. Discussed with hospitalist. Add nifedipine for hypertension. Currently on Lasix drip, at the time of discharge, likely sent home on Lasix 80 mg twice a day. For nephrotic range proteinuria, I have sent rest of the serologies, this will take some time to come back. Urine toxicology results noted. Once again I discussed with her about the importance of establishing with a primary care physician and following up in the office. She says she will do that this time. 06/24/2025. Creatinine is slightly better, getting close to previous baseline. Electrolytes are fine, no significant acidosis. It is reasonable from renal standpoint to be discharged, she needs to follow-up with us as an outpatient
--- NOTE | 2025-06-24 13:04 | CASEMGMT ---
Addendum entered by Saravanan Nichole 06/24/25 16:06: 1500: Pt has left the unit AMA and Dr Clements is aware. Script for glucometer received from Dr Clements who asked this RN HUSSAIN to send to [facility]. He states Rx's have been e-scribed to [facility] retail pharmacy and if pt does end up picking up her Rx's from there, then she can also get the glucometer. Addendum entered by Saravanan Nichole 06/24/25 14:44: VISHAL NIXON attempted to contact [facility] to schedule appt several times w/out success. Pt made aware. Original Note: VISHAL NIXON note: Reviewed therapy notes. Pt ambulated 200 ft w/no use of assistive device, no additional therapy recommended. VISHAL NIXON to room. Pt sitting up in chair, eating lunch. Discussed CCN. Pt states would like a referral. Order placed. Pt provided w/CCN rac card info. Per therapy note, pt wants home o2, however, when pt working w/therapy today she was on RA and pt only went as low as 89% on RA even on stairs. Pt made aware, as of today, she does not qualify for home O2 but that she would be tested again on day of discharge. She voices understanding. Pt voices no further discharge needs or concerns. Laina SEVERINO RN, CM
[2025-06-24 13:08] LABS: ANTINUCLEAR ANTIBODIES DIRECT Negative (Negative)
--- NOTE | 2025-06-24 15:10 | DCINST_ITS ---
Discharge Instructions DC O2, CPAP, BIPAP needs Home O2 Discharge instructions: No Dressing / Incision Discharge Activity: Return to Normal Activity Weight Bearing Status: Full weight bearing Follow Up Care Test Results: Test results from this visit will be discussed in further detail at your follow- up appointment, if applicable. Discharge Plan Admission Admit Date/Time: 06/21/25 18:19 Primary Reason for Your Visit: DKA, CHF Attending Provider: Jl Clements Primary Care Provider: Care Physician,No Primary Consulting Providers: Kamari Mariscal; Brenden Wilder Discharge Orders/Prescriptions Prescriptions: New carvedilol 25 mg Tablet 25 mg PO BIDCM Qty: 60 1RF isosorbide mononitrate 60 mg Tablet Extended Release 24 Hr 60 mg PO DAILY Qty: 30 1RF hydralazine 50 mg Tablet 100 mg PO TID Qty: 90 1RF furosemide [Lasix] 40 mg tablet 40 mg PO BID Qty: 60 1RF Continued insulin glargine-yfgn 100 unit/mL (3 mL) Insulin Pen 20 unit subcut DAILY Qty: 5 0RF Discontinued carvedilol 12.5 mg Tablet 12.5 mg PO BIDCM Qty: 60 0RF furosemide 20 mg Tablet 60 mg PO DAILY Qty: 90 0RF hydralazine 25 mg Tablet 50 mg PO TID Qty: 180 0RF gabapentin 100 mg Capsule 200 mg PO Q8H PRN PRN (Reason: leg discomfort) Qty: 180 0RF Referrals / Follow Up: Brenden Wilder MD [Med Staff - Consulting, Nephrology] - See Referral Note Referral Note: Call for an appointment Care Physician,No Primary [Primary Care Provider, Medical] Jay Estevez BATTERY REPAIRER, BATTERY REPAIRER-C [Med Staff - Adv Practice Prof, Cardiology] - See Referral Note Referral Note: Call for an appointment Disposition Disposition (needs filled in before D/C Order can be placed): Against Medical Advice
--- NOTE | 2025-06-24 15:21 | DS.PCM_ITS ---
Providers Date of Admission: 06/21/25 Date of Discharge: 06/24/25 Primary Care Physician: Sola Primary Care Phys Consultations 06/22/25 07:45 Consult: Cardiology Routine Consulting Provider: Kamari Mariscal Reason for Consult: CHF EMERGENT Consult: No Notified: Yes Date Notified: 06/22/25 Time Notified: 09:11 Method of Notification: Verbal Method of Consult:: In-Person Consult: Nephrology Routine Consulting Provider: Brenden Wilder Reason for Consult: increased creatiinine EMERGENT Consult: No Notified: Yes Date Notified: 06/22/25 Time Notified: 08:36 Method of Notification: Answering Service Reason For Visit: ACUTE EXACERBATION OF CONGESTIVE HEART FAILURE Diagnosis Discharge Diagnosis (1) Acute kidney failure: Status: Acute Code(s): N17.9 - Acute kidney failure, unspecified Qualifiers: Acute renal failure type: unspecified Qualified Code(s): N17.9 - Acute kidney failure, unspecified Plan 1. Acute hypoxic respiratory failure secondary to acute on chronic congestive heart failure with reduced ejection fraction #2 acute on chronic congestive heart failure with reduced ejection fraction- patient will be kept on IV Lasix for diuresis, cardiology is participating in her care #3 acute kidney injury-patient's creatinine is still elevated, I suspect she has an element of chronic kidney disease but it has not been 90 days since she has been in the hospital last so I do not know if for renal function is stable at this time or declining. Continue to monitor labs, nephrology is seeing patient #4 type 2 diabetes-blood sugars will be monitored, sliding scale insulin will be administered as needed #5 noncompliance with medical regimen-it is obvious the patient is noncompliant with following up with any healthcare providers, I do not actually know the reason for this. She will need close follow-up when she is discharged from the hospital, again the last time she was in the hospital she signed herself out AGAINST MEDICAL ADVICE. #5 hypertensive emergency-I placed the patient on Procardia today initially and her blood pressure was improved however after discussion with cardiology, they requested this medication be stopped, patient's blood pressure will be monitored, in the end it may be necessary to place the patient on a calcium channel daiana however if she does not respond to other blood pressure medications. #6 elevated troponin-this is probably secondary to demand ischemia, patient had no complaints to this examiner about any chest pain on admission #7 anasarca secondary to noncompliance with home medications and nonischemic cardiomyopathy #8 nonischemic cardiomyopathy-etiology unclear, patient had a stress test during her last hospital admission in May of this year which was negative for reversible ischemia, it appears that her cardiomyopathy is nonischemic in nature. Total clinical time spent by myself addressing patient's medical issues, reviewing all of her data, and collaborating with patient's care team: 35 minutes Medications at Discharge Home Medications insulin glargine-yfgn 100 unit/mL (3 mL) subcutaneous pen 20 unit (0.2 mL) subcut DAILY diabetes #5 mL 05/21/25 carvedilol 25 mg tablet 25 mg PO BIDCM #60 tabs 06/24/25 furosemide 40 mg tablet (Lasix) 40 mg PO BID #60 tabs 06/24/25 hydralazine 50 mg tablet 100 mg (2 x 50 mg) PO TID #90 tabs 06/24/25 isosorbide mononitrate 60 mg tablet,extended release 24 hr 60 mg PO DAILY #30 tabs 06/24/25 Hospital Course Operations None Procedures 2-D Echocardiogram Summary of Care Provided Minutes Spent on Discharge: 32 Hospital Course: This 44-year-old black female was seen in the emergency room at [facility] with a chief complaint of shortness of breath. She had been seen in the hospital here in May 2025 and treated for new-onset acute congestive heart failure with reduced ejection fraction, patient had been noncompliant with taking her medications after she left the hospital and had not followed up with any physician. Patient also has renal dysfunction-it is not noted at this time whether it is chronic or acute. Lab work done in the emergency room showed elevated creatinine, again this was not known whether it was chronic or acute in the patient's blood sugar was elevated at 325. Patient required supplemental oxygen to maintain her pulse ox, she was admitted to ICU and seen by cardiology, her blood pressure was elevated and this was corrected with adjustment of medications. Patient complained of abdominal pain but CT of the abdomen pelvis showed only evidence of some ascites and anasarca. Patient stabilized and was transferred to PCU, IV Lasix was continued and on the afternoon of 06/24/2025, patient approached nursing and stated that she desired to go home, I told nursing that she would have to sign out AMA which she did. Patient left the hospital without any instructions, I called all her medications into the pharmacy downstairs, I am doubtful the patient will follow through with outpatient follow-up. In the morning on 06/24/2025, patient was seen and examined: On examination, she does not appear to be in any distress. Vital signs as documented. Skin warm and dry and without overt rashes. Neck without JVD, thyroid appears normal, trachea is midline, neck is supple. Lungs clear, normal air movement was noted. Heart exam notable for regular rhythm, normal sounds and absence of murmurs, rubs or gallops. Abdomen unremarkable and without evidence of organomegaly, masses, or abdominal aortic enlargement, bowel sounds are present in all 4 quadrants, no abdominal tenderness was noted. Extremities nonedematous, no cyanosis was noted, no clubbing was noted. Neuro: Cranial nerves II through XII are grossly intact, no focal motor deficits were noted, sensation to light touch and pinprick is intact, motor exam 5/5 throughout. Psych: Patient is alert and oriented x3, she does not appear anxious or depressed, she does not appear agitated. Patient was discharged AGAINST MEDICAL ADVICE on 06/24/2025 Weight / BMI Weight Weight: 91.4 kg Body Mass Index (BMI) 35.6 ABG / Lab / Microbiology Data 06/24/25 04:28 06/24/25 04:28 Laboratory: Laboratory Results - last 24 hr 06/23/25 06:17: MARIANO Screen Negative, Complement C3 119, Complement C4 46 H 06/23/25 15:52: POC Glucose 151 H 06/23/25 16:13: POC Glucose 157 H 06/23/25 22:09: POC Glucose 168 H 06/24/25 04:28: WBC 7.2, RBC 2.97 L, Hgb 8.2 L, Hct 25.5 L, MCV 85.9, MCH 27.6, MCHC 32.2, RDW Std Deviation 41.1, RDW Coeff of Giselle 13.2, Plt Count 333, MPV 11.1, Immature Gran % (Auto) 0.100, Neut % (Auto) 62.3, Lymph % (Auto) 23.9, [place] % (Auto) 9.1, Eos % (Auto) 3.9, Baso % (Auto) 0.7, Absolute Neuts (auto) 4.5, Absolute Lymphs (auto) 1.71, Nucleated RBC % 0, Sodium 137, Potassium 3.2 L , Chloride 104, Carbon Dioxide 23.3, Anion Gap 10, BUN 33 H, Creatinine 2.96 H, Estim Creat Clear Calc 25.76 L, Est GFR (MDRD) Non-Af 19 L, BUN/Creatinine Ratio 11.1, Glucose 120 H, Calcium 7.2 L 06/24/25 06:31: POC Glucose 155 H 06/24/25 10:57: POC Glucose 159 H D/C Instructions Weight Bearing Status: Full weight bearing DC O2, CPAP, BIPAP Needs Home O2 Discharge instructions: No Meaningful Use Info Meaningful Use Meaningful Use Diagnoses (Choose all that apply): CHF CHF ISABEL/ARB ordered at discharge?: No Reason ISABEL/ARB not ordered?: Not indicated Documented LVEF (%): 35 Discharge Plan Admission Admit Date/Time: 06/21/25 18:19 Primary Reason for Your Visit: DKA, CHF Attending Provider: Jl Clements Primary Care Provider: Care Physician,No Primary Consulting Providers: Kamari Mariscal; Brenden Wilder Discharge Orders/Prescriptions Prescriptions: New carvedilol 25 mg Tablet 25 mg PO BIDCM Qty: 60 1RF isosorbide mononitrate 60 mg Tablet Extended Release 24 Hr 60 mg PO DAILY Qty: 30 1RF hydralazine 50 mg Tablet 100 mg PO TID Qty: 90 1RF furosemide [Lasix] 40 mg tablet 40 mg PO BID Qty: 60 1RF Continued insulin glargine-yfgn 100 unit/mL (3 mL) Insulin Pen 20 unit subcut DAILY Qty: 5 0RF Discontinued carvedilol 12.5 mg Tablet 12.5 mg PO BIDCM Qty: 60 0RF furosemide 20 mg Tablet 60 mg PO DAILY Qty: 90 0RF hydralazine 25 mg Tablet 50 mg PO TID Qty: 180 0RF gabapentin 100 mg Capsule 200 mg PO Q8H PRN PRN (Reason: leg discomfort) Qty: 180 0RF Referrals / Follow Up: Brenden Wilder MD [Med Staff - Consulting, Nephrology] - See Referral Note Referral Note: Call for an appointment Care Physician,No Primary [Primary Care Provider, Medical] Roof,Jay H CASTING ROOM HELPER, CASTING ROOM HELPER-C [Med Staff - Adv Practice Prof, Cardiology] - See Referral Note Referral Note: Call for an appointment Disposition Disposition (needs filled in before D/C Order can be placed): Against Medical Advice Charges/Coding Visit Charges Inpatient E&M: 33232 Disch Hosp >30min
--- NOTE | 2025-06-29 10:44 | CCN.REFER ---
DOES NOT QUALIFY FOR CCN D/T SUBSTANCE ABUSE.
== END 2025-06-24 15:11 | disposition left against medical advice (07) | DRG 194 ==
LOC: ED 18:16 → ICU 18:58 → PCU 06-23 15:43
PROVIDERS: Family Medicine; Internal Medicine; Internal Medicine Nephrology; Admitting Provider Internal Medicine; Emergency Provider Emergency Medicine; Visit Provider Internal Medicine
DX: I13.0 Hypertensive heart and chronic kidney disease with heart failure and stage 1 through stage 4 chronic kidney disease, or unspecified chronic kidney disease (principal); J96.01 Acute respiratory failure with hypoxia; I24.89 Other forms of acute ischemic heart disease; E11.22 Type 2 diabetes mellitus with diabetic chronic kidney disease; I16.1 Hypertensive emergency; D64.9 Anemia, unspecified; J90 Pleural effusion, not elsewhere classified; I50.43 Acute on chronic combined systolic (congestive) and diastolic (congestive) heart failure; N18.9 Chronic kidney disease, unspecified; I42.8 Other cardiomyopathies; N17.9 Acute kidney failure, unspecified; Z79.4 Long term (current) use of insulin; F41.9 Anxiety disorder, unspecified; F17.290 Nicotine dependence, other tobacco product, uncomplicated; Z79.899 Other long term (current) drug therapy; Z53.29 Procedure and treatment not carried out because of patient's decision for other reasons; Z91.148 Patient's other noncompliance with medication regimen for other reason; R60.1 Generalized edema
CPT/HCPCS: 51702; 71045; 74176; 80048; 82803; 82962; 83520; 83880; 84484; 85025; 85610; 85730; 86038; 86160; 86225; 86235; 93005; 93308; 93970; 94002; 94003; 94762; 97116; 97162; 97802; 97803; 99285; 99406; A4216; J1938; J2405